=== PATIENT | female | born 1955 | race Caucasian/White ===

== ENCOUNTER 2016-04-22 16:09 | Observation (INO) | payer MEDICARE, OTHER ==
--- NOTE | 2016-04-22 16:20 | ED ---
General Adult HPI - General Chief complaint: Chest Pain Stated complaint: Chest Pain Time Seen by Provider: 04/22/16 16:11 Source: EMS, RN notes reviewed, old records reviewed Mode of arrival: EMS Limitations: no limitations - History of Present Illness Initial comments: This is a 52-year-old female here for evaluation of chest pain. Anterior chest pain feels like something sitting her chest and her left arm. Patient states she is concerned that she isn't a diabetic. This have history of psychiatric disease as well as angina, cholesterol, patient states that this chest pain is been dealing with on and off worse since last night. She has a prior cardiac evaluation which she states was normal but was on. All was done greater than 10 years ago. Patient has no recent cough congestion, no recent fever, no recent travel history. - Related Data Home Medications Medication Instructions Recorded Confirmed DULoxetine HCL [Cymbalta] 120 mg PO DAILY 08/24/13 04/22/16 ALPRAZolam [Xanax] 0.5 mg PO TID 04/22/16 04/22/16 Albuterol Inhaler [Ventolin Hfa 2 puff INHALATION RT-Q4H PRN 04/22/16 04/22/16 Inhaler] Calcium Carbonate [Calcium] 600 mg PO DAILY 04/22/16 04/22/16 Ferrous Sulfate [Feosol] 325 mg PO BID 04/22/16 04/22/16 Fish Oil/Dha/Epa [Fish Oil 1,200 1 cap PO BID 04/22/16 04/22/16 mg Fish Oil] Levothyroxine Sodium [Synthroid] 137 mcg PO QAM 04/22/16 04/22/16 Multivitamins, Thera [Multivitamin] 1 tab PO DAILY 04/22/16 04/22/16 Prazosin [Minipress] 1 mg PO HS 04/22/16 04/22/16 Vitamin B Complex 1 cap PO DAILY 04/22/16 04/22/16 busPIRone HCl [Buspar] 20 mg PO TID 04/22/16 04/22/16 metFORMIN HCL [Glucophage] 500 mg PO BID 04/22/16 04/22/16 Previous Rx's Medication Instructions Recorded Aspirin 81 mg PO DAILY 30 Days 12/29/13 Pravastatin Sodium [Pravachol] 80 mg PO HS 30 Days 11/05/14 Allergies Allergy/AdvReac Type Severity Reaction Status Date / Time sulfamethoxazole Allergy Unknown Rash/Hives, Verified 04/22/16 16:11 [From Bactrim] SOB trimethoprim [From Bactrim] Allergy Unknown Rash/Hives, Verified 04/22/16 16:11 SOB Review of Systems ROS Statement: Those systems with pertinent positive or pertinent negative responses have been documented in the HPI. ROS Other: All systems not noted in ROS Statement are negative. Past Medical History Past Medical History: Asthma, Chest Pain / Angina, Diabetes Mellitus, GERD/ Reflux, Hyperlipidemia, Sleep Apnea/CPAP/BIPAP, Thyroid Disorder Additional Past Medical History / Comment(s): anemia, chest pain "from anxiety" , sometimes low BP, occ palpitations, diverticulosis, kidney stone History of Any Multi-Drug Resistant Organisms: None Reported Past Surgical History: Section, Heart Catheterization, Hernia Repair, Tonsillectomy Past Anesthesia/Blood Transfusion Reactions: Family History of Problems w/ Anesthesia, Motion Sickness Additional Past Anesthesia/Blood Transfusion Reaction / Comment(s): sister had diff breathing from anesthesia Past Psychological History: Anxiety, Bipolar, Depression Smoking Status: Never smoker Past Alcohol Use History: None Reported Past Drug Use History: None Reported - Past Family History Mother Additional Family Medical History / Comment(s): renal disease. Father Additional Family Medical History / Comment(s): [place] and stroke Brother(s) Family Medical History: Cancer Sister(s) Family Medical History: Cancer General Exam Limitations: no limitations General appearance: alert, in no apparent distress Head exam: Present: atraumatic, normocephalic, normal inspection Eye exam: Present: normal appearance, PERRL, EOMI. Absent: scleral icterus, conjunctival injection, periorbital swelling ENT exam: Present: normal exam, mucous membranes moist Neck exam: Present: normal inspection. Absent: tenderness, meningismus, lymphadenopathy Respiratory exam: Present: normal lung sounds bilaterally. Absent: respiratory distress, wheezes, rales, rhonchi, stridor Cardiovascular Exam: Present: regular rate, normal rhythm, normal heart sounds. Absent: systolic murmur, diastolic murmur, rubs, gallop, clicks GI/Abdominal exam: Present: soft, normal bowel sounds. Absent: distended, tenderness, guarding, rebound, rigid Extremities exam: Present: normal inspection, full ROM, normal capillary refill. Absent: tenderness, pedal edema, joint swelling, calf tenderness Back exam: Present: normal inspection Neurological exam: Present: alert, oriented X3, CN II-XII intact Psychiatric exam: Present: normal affect, normal mood Skin exam: Present: warm, dry, intact, normal color. Absent: rash Course Vital Signs 04/22/16 04/22/16 04/22/16 16:11 16:23 17:15 Temperature 99 F Pulse Rate 82 73 Pulse Rate [ 88 Right Radial] Respiratory 16 18 Rate Blood Pressure 115/58 95/65 O2 Sat by Pulse 97 2 L Oximetry - Reevaluation(s) Reevaluation #1: 04/22/16 17:32 Patient remains a chest pain right now EKG Findings - EKG Comments: EKG Findings:: EKG shows normal sinus a rate of 72, NC 162, QRS 72, QTC 438 Medical Decision Making - Medical Decision Making 60 [id number] chest pain. Patient has anterior chest pain sitting on chest , typical chest pain mild risk factors. Patient's initial EKG and troponin are negative will be admitted for cardiac observation and telemetry, serial troponins and anticoagulation - Lab Data Result diagrams: 04/22/16 16:21 04/22/16 16:21 Lab Results 04/22/16 04/22/16 04/22/16 Range/Units 16:21 16:21 16:21 WBC 9.2 (3.8-10.6) k/uL RBC 4.93 (3.80-5.40) m/uL Hgb 13.6 (11.4-16.0) gm/dL Hct 41.4 (34.0-46.0) % MCV 83.9 (80.0-100.0) fL MCH 27.5 (25.0-35.0) pg MCHC 32.8 (31.0-37.0) g/dL RDW 13.5 (11.5-15.5) % Plt Count 288 (150-450) k/uL Neutrophils % 63 % Lymphocytes % 26 % Monocytes % 7 % Eosinophils % 2 % Basophils % 1 % Neutrophils # 5.8 (1.3-7.7) k/uL Lymphocytes # 2.4 (1.0-4.8) k/uL Monocytes # 0.6 (0-1.0) k/uL Eosinophils # 0.1 (0-0.7) k/uL Basophils # 0.1 (0-0.2) k/uL PT (9.0-12.0) sec INR (<1.1) APTT (22.0-30.0) sec Sodium 143 (137-145) mmol/L Potassium 3.6 (3.5-5.1) mmol/L Chloride 108 H (98-107) mmol/L Carbon Dioxide 24 (22-30) mmol/L Anion Gap 11 mmol/L BUN 10 (7-17) mg/dL Creatinine 0.75 (0.52-1.04) mg/dL Est GFR (MDRD) Af Amer >60 (>60 ml/min/1.73 sqM) Est GFR (MDRD) Non-Af >60 (>60 ml/min/1.73 sqM) Glucose 98 (74-99) mg/dL Calcium 9.2 (8.4-10.2) mg/dL Magnesium 1.4 L (1.6-2.3) mg/dL Total Bilirubin 0.9 (0.2-1.3) mg/dL AST 32 (14-36) U/L ALT 32 (9-52) U/L Alkaline Phosphatase 38 (38-126) U/L Total Creatine Kinase 42 (30-135) U/L NT-Pro-B Natriuret Pep pg/mL Total Protein 6.7 (6.3-8.2) g/dL Albumin 3.9 (3.5-5.0) g/dL Lipase 78 (23-300) U/L 04/22/16 04/22/16 Range/Units 16:21 16:21 WBC (3.8-10.6) k/uL RBC (3.80-5.40) m/uL Hgb (11.4-16.0) gm/dL Hct (34.0-46.0) % MCV (80.0-100.0) fL MCH (25.0-35.0) pg MCHC (31.0-37.0) g/dL RDW (11.5-15.5) % Plt Count (150-450) k/uL Neutrophils % % Lymphocytes % % Monocytes % % Eosinophils % % Basophils % % Neutrophils # (1.3-7.7) k/uL Lymphocytes # (1.0-4.8) k/uL Monocytes # (0-1.0) k/uL Eosinophils # (0-0.7) k/uL Basophils # (0-0.2) k/uL PT 11.0 (9.0-12.0) sec INR 1.1 (<1.1) APTT 22.1 (22.0-30.0) sec Sodium (137-145) mmol/L Potassium (3.5-5.1) mmol/L Chloride (98-107) mmol/L Carbon Dioxide (22-30) mmol/L Anion Gap mmol/L BUN (7-17) mg/dL Creatinine (0.52-1.04) mg/dL Est GFR (MDRD) Af Amer (>60 ml/min/1.73 sqM) Est GFR (MDRD) Non-Af (>60 ml/min/1.73 sqM) Glucose (74-99) mg/dL Calcium (8.4-10.2) mg/dL Magnesium (1.6-2.3) mg/dL Total Bilirubin (0.2-1.3) mg/dL AST (14-36) U/L ALT (9-52) U/L Alkaline Phosphatase (38-126) U/L Total Creatine Kinase (30-135) U/L NT-Pro-B Natriuret Pep 55 pg/mL Total Protein (6.3-8.2) g/dL Albumin (3.5-5.0) g/dL Lipase (23-300) U/L - Radiology Data Radiology results: report reviewed (Chest x-ray negative for acute disease), image reviewed Critical Care Time Critical Care Time: Yes Total Critical Care Time: 31 Disposition Clinical Impression: Chest pain Disposition: ADMITTED IP TO THIS [facility] Condition: Undetermined Instructions: Chest Pain (ED) Referrals: Gracie Medrano DO [Primary Care Provider] - 1-2 days
[2016-04-22 16:46] LABS: Basophils # (A) 0.1 k/uL (0-0.2); Basophils % (A) 1 %; CH 27.7; CHCM 33.1; Eosinophils # (A) 0.1 k/uL (0-0.7); Eosinophils % (A) 2 %; HCT 41.4 % (34.0-46.0); HDW 2.65; HGB 13.6 gm/dL (11.4-16.0); Luc # (Auto) 0.18; Luc % (Auto) 2; Lymphocytes # (A) 2.4 k/uL (1.0-4.8); Lymphocytes % (A) 26 %; MCH 27.5 pg (25.0-35.0); MCHC 32.8 g/dL (31.0-37.0); MCV 83.9 fL (80.0-100.0); Mean Platelet Volume 9.2; Monocytes # (A) 0.6 k/uL (0-1.0); Monocytes % (A) 7 %; Neutrophils # (A) 5.8 k/uL (1.3-7.7); Neutrophils % (A) 63 %; RBC 4.93 m/uL (3.80-5.40); RDW 13.5 % (11.5-15.5); WBC 9.2 k/uL (3.8-10.6); WBC (Perox) 9.05
[2016-04-22 16:48] LABS: ALT 32 U/L (9-52); AST 32 U/L (14-36); Alkaline Phosphatase 38 U/L (38-126); Anion Gap 11 mmol/L; Blood Urea Nitrogen 10 mg/dL (7-17); Calcium 9.2 mg/dL (8.4-10.2); Carbon Dioxide 24 mmol/L (22-30); Chloride 108 mmol/L (98-107); Glucose 98 mg/dL (74-99); Magnesium 1.4 mg/dL (1.6-2.3); Non-African American GFR(MDRD) >60 (>60 ml/min/1.73 sqM); Potassium 3.6 mmol/L (3.5-5.1); Sodium 143 mmol/L (137-145); Total Bilirubin 0.9 mg/dL (0.2-1.3); Total Protein 6.7 g/dL (6.3-8.2)
--- NOTE | 2016-04-22 16:50 | XR ---
EXAMINATION TYPE: XR chest 2V DATE OF EXAM: 04/22/2016 4:41 PM COMPARISON: 09/04/2013 INDICATION: Chest pain TECHNIQUE: Single frontal view of the chest is obtained. FINDINGS: The heart size is normal. The pulmonary vasculature is normal. The lungs are clear. IMPRESSION: 1. No acute pulmonary process.
[2016-04-22 16:52] LABS: INR 1.1 (<1.1); Partial Thromboplastin Time 22.1 sec (22.0-30.0)
[2016-04-22 17:13] LABS: Creatine Kinase 42 U/L (30-135)
[2016-04-22 17:27] LABS: Creatine Kinase MB 0.3 ng/mL (0.0-2.4); Troponin I <0.012 ng/mL (0.000-0.034)
[2016-04-22] MEDS ORDERED: MORPHINE SULFATE 4 MG/ML SYRINGE IVP STA (17:28)
[2016-04-22] MEDS ORDERED: MORPHINE SULFATE 4 MG/ML SYRINGE IV PRN (17:29)
[2016-04-22] MEDS ORDERED: HEPARIN SODIUM,PORCINE 5,000 UNIT/ML 1 ML VIAL IV ONE (17:29)
[2016-04-22] MEDS ORDERED: ASPIRIN 81 MG CHEW PO STA (17:29)
[2016-04-22] MEDS ORDERED: HEPARIN SODIUM,PORCINE 5,000 UNIT/ML 1 ML VIAL IV PRN (17:29)
[2016-04-22] MEDS ORDERED: NITROGLYCERIN SL TABS 0.4 MG TAB SUBLINGUAL PRN (17:29)
[2016-04-22] MEDS ORDERED: HEPARIN SODIUM,PORCINE/D5W PMX 25,000 UNIT in DEXTROSE/WATER 1 500ML.BAG IV SCH (17:30)
[2016-04-22] MEDS: SODIUM CHLORIDE 0.9% 1,000 ML IV STA ×2 (17:57→19:34)
[2016-04-22 18:31] LABS: Glucose,Whole Blood 94 mg/dL (75-99)
[2016-04-22] MEDS: SODIUM CHLORIDE 0.9% 1,000 ML IV SCH (19:35)
[2016-04-22 19:50] VITALS: BMI 60.2
[2016-04-22] MEDS ORDERED: ALBUTEROL NEBULIZED 2.5 MG/3 ML INHALATION PRN (19:52)
[2016-04-22] MEDS ORDERED: metFORMIN 500 MG TAB PO STA (19:55)
[2016-04-22] MEDS ORDERED: POTASSIUM CHLORIDE ER 20 MEQ TAB.ER PO STA (19:57)
[2016-04-22] MEDS: MAGNESIUM SULFATE-D5W PMX 1 GM in DEXTROSE/WATER 1 100ML.BAG IVPB SCH ×3 (20:28→23:45)
[2016-04-22] MEDS: ALPRAZolam 0.5 MG TAB PO SCH (20:33)
[2016-04-22] MEDS: FERROUS SULFATE 325 MG TAB PO SCH (20:34)
[2016-04-22] MEDS: busPIRone HCl 10 MG TAB PO SCH (20:34)
[2016-04-22] MEDS ORDERED: PRAZOSIN 1 MG CAP PO SCH (21:00)
[2016-04-22] MEDS ORDERED: PRAVASTATIN SODIUM 80 MG TAB PO SCH (21:00)
[2016-04-22 21:16] LABS: Glucose,Whole Blood 119 mg/dL (75-99)
[2016-04-22] MEDS: INSULIN LISPRO (humaLOG) 300 UNIT/3 ML VIAL SQ SCH (22:11)
[2016-04-22 23:53] LABS: Creatine Kinase 39 U/L (30-135)
[2016-04-23 00:03] LABS: Creatine Kinase MB 0.3 ng/mL (0.0-2.4); Troponin I <0.012 ng/mL (0.000-0.034)
[2016-04-23 00:04] LABS: Hemoglobin A1C 6.3 % (4.2-6.1)
[2016-04-23 05:43] LABS: Mean Platelet Volume 8.6
[2016-04-23 06:17] LABS: Creatine Kinase 41 U/L (30-135)
[2016-04-23] MEDS ORDERED: LEVOTHYROXINE 137 MCG TAB PO SCH (06:30)
[2016-04-23 06:31] LABS: Creatine Kinase MB 0.4 ng/mL (0.0-2.4); Troponin I <0.012 ng/mL (0.000-0.034)
[2016-04-23 06:57] LABS: Glucose,Whole Blood 135 mg/dL (75-99)
[2016-04-23 07:11] LABS: Anion Gap 11 mmol/L; Blood Urea Nitrogen 12 mg/dL (7-17); Calcium 9.3 mg/dL (8.4-10.2); Carbon Dioxide 24 mmol/L (22-30); Chloride 108 mmol/L (98-107); Cholesterol 115 mg/dL (<200); Glucose 129 mg/dL (74-99); HDL Cholesterol 35 mg/dL (40-60); Magnesium 2.2 mg/dL (1.6-2.3); Non-African American GFR(MDRD) >60 (>60 ml/min/1.73 sqM); Potassium 3.9 mmol/L (3.5-5.1); Sodium 143 mmol/L (137-145); Triglycerides 245 mg/dL (<150)
[2016-04-23] MEDS ORDERED: DOBUTamine DRIP for NUC MED 500 MG in DEXTROSE/WATER 1 250ML.BAG IV ONE (08:49)
[2016-04-23] MEDS ORDERED: ASPIRIN 325 MG TAB PO SCH (09:00)
--- NOTE | 2016-04-23 09:11 | CONS ---
DATE OF CONSULTATION: Mrs. Welch is a 60-year-old female with no history of diabetes and history of hyperlipidemia, history of anxiety and depression who presented with symptoms of not feeling well, as well as symptoms of chest discomfort. She has been having this discomfort for a few weeks, the discomfort is worsened on mental stress. Yesterday, she was at doctor's office when she felt quite dizzy and presyncopal. She has been having progressive symptoms of dyspnea, dizziness and palpitations. She is not active physically. She has some peripheral edema. She has no clear PND or orthopnea. She has no prior history of cardiac disease. She had underwent cardiac work-up a few years back that was unremarkable. Her coronary risk factors are remarkable for diabetes and hyperlipidemia. She is a nonsmoker, nonhypertensive. Her medications include metformin 500 mg twice a day, pravastatin 80 mg daily, vitamin D, calcium, aspirin, Ventolin, Minipress 1 mg daily, Xanax, BuSpar, Cymbalta. REVIEW OF SYSTEMS: RESPIRATORY SYSTEM: She has dyspnea on exertion, prior history of asthma. GI SYSTEM: She had recent bright red blood per rectum, most likely hemorrhoids. No nausea or vomiting. SYSTEM: No dysuria, hematuria. NERVOUS SYSTEM: No stroke or seizure. She has a history of depression. PHYSICAL EXAMINATION: She is a 60-year-old female, obese, alert, oriented, in no apparent distress. Blood pressure running in the low 100 with a heart rate in the 60s. HEAD: Normocephalic. EYES: Sclerae nonicteric. NECK: Good upstroke. No bruit. No jugular venous distention. LUNGS: Clear to auscultation. HEART: Regular rate and rhythm. S1, S2, no S3, no rub or gallop appreciated. ABDOMEN: Soft, nontender, obese. Positive bowel sounds. No organomegaly. EXTREMITIES: No edema. Intact distal pulses. Lab data revealed cholesterol 115, LDL of 31. Troponin less than 0.012. BUN and creatinine 12 and 0.91, magnesium of 2.2 today, was 1.4 yesterday. Hemoglobin is 13.6. EKG reveals sinus mechanism, normal axis and intervals with minor nonspecific ST-T wave changes. Chest x-ray revealed no acute infiltrate. IMPRESSION: 1. Chest discomfort, atypical for ischemic heart disease, probably noncardiac in etiology. 2. History of hyperlipidemia. 3. Diabetes mellitus. 4. Symptoms of dizziness could be related to the hypotension from the Minipress. 5. History of depression. RECOMMENDATION: I will stop her Minipress. I will stop her heparin, proceed with a stress dobutamine echocardiogram and a transthoracic echo and if there is no evidence of inducible ischemia, then no further cardiac work-up will be needed. Thank you for this consult.
[2016-04-23] MEDS: INSULIN LISPRO (humaLOG) 300 UNIT/3 ML VIAL SQ SCH ×2 (09:24→12:36)
[2016-04-23] MEDS: busPIRone HCl 10 MG TAB PO SCH (11:14)
[2016-04-23] MEDS: FERROUS SULFATE 325 MG TAB PO SCH (11:15)
[2016-04-23] MEDS: ALPRAZolam 0.5 MG TAB PO SCH (11:15)
[2016-04-23 12:09] VITALS: RESP 16
--- NOTE | 2016-04-23 12:20 | ECHOS ---
DATE OF SERVICE: 04/23/2016 AGE: 60Y SEX: F HT: 60 WT: 308 lbs. Protocol Saman: Others: Dobutamine Stress Echo Stage: Dur. of Exercise: *Heart Rate Blood Pressure *Rest: 70 Rest: 119/58 * *Max. Achieved: 138 Maximum BP: 148/49 85% PMHR: 138 100% PMHR: 162 *METS: INDICATIONS: Chest pain. MEDICATIONS: Patient was given dobutamine infusion according to the standard protocol. Peak heart rate of 138 was achieved. Maximum blood pressure of 148/49 mmHg was noted. Resting EKG shows normal sinus rhythm with normal NV interval and QRS duration and normal ST-T waves. No ST segment depression suggestive of ischemia is noted. Occasional PVCs are noted. The baseline echocardiographic images reveals normal left ventricular chamber size with normal left ventricular systolic function. At the peak dose of dobutamine infusion, normal increase in the wall thickness and contractility is noted. FINAL IMPRESSION: This dobutamine stress echocardiographic study is negative for stress-induced ischemia. EKG portion of the stress test is not suggestive of ischemia. Occasional PVCs are noted.
[2016-04-23 12:21] LABS: Glucose,Whole Blood 117 mg/dL (75-99)
--- NOTE | 2016-04-23 12:22 | ECHOF ---
Referral Reason:cp MEASUREMENTS -------- HEIGHT: 152.4 cm WEIGHT: 139.7 kg BP: 108/58 RVIDd: 3.3 cm (< 3.3) IVSd: 1.6 cm (0.6 - 1.1) LVIDd: 4.3 cm (3.9 - 5.3) LVPWd: 1.4 cm (0.6 - 1.1) IVSs: 1.7 cm LVIDs: 3.0 cm LVPWs: 1.9 cm LA Diam: 3.1 cm (2.7 - 3.8) LAESV Index (A-L): 16.91 ml/m Ao Diam: 3.1 cm (2.0 - 3.7) AV Cusp: 2.5 cm (1.5 - 2.6) MV E Edmond: 0.73 m/s MV DecT: 223 ms MV A Edmond: 0.65 m/s MV E/A Ratio: 1.12 RAP: 5.00 mmHg RVSP: 15.84 mmHg FINDINGS -------- Sinus rhythm. This was a technically adequate study. The left ventricular size is normal. There is moderate concentric left ventricular hypertrophy. Overall left ventricular systolic function is normal with, an EF between 60 - 65 %. The right ventricle is normal in size. Normal LA size by volume 22+/-6 ml/m2. The right atrium is normal in size. The aortic valve was not well visualized. Mild mitral annular calcification present. Trace tricuspid regurgitation present. Right ventricular systolic pressure is normal at < 35 mmHg. The pulmonic valve was not well visualized. The aortic root size is normal. Normal inferior vena cava with normal inspiratory collapse consistent with estimated right atrial pressure of 5 mmHg. There is no pericardial effusion. CONCLUSIONS -------- 1. Sinus rhythm. 2. Mild mitral annular calcification present. 3. Trace tricuspid regurgitation present. 4. Right ventricular systolic pressure is normal at < 35 mmHg. 5. The pulmonic valve was not well visualized. 6. The aortic root size is normal. 7. Normal inferior vena cava with normal inspiratory collapse consistent with estimated right atrial pressure of 5 mmHg. 8. There is no pericardial effusion. 9. This was a technically adequate study. 10. The left ventricular size is normal. 11. There is moderate concentric left ventricular hypertrophy. 12. Overall left ventricular systolic function is normal with, an EF between 60 - 65 %. 13. The right ventricle is normal in size. 14. Normal LA size by volume 22+/-6 ml/m2. 15. The right atrium is normal in size. 16. The aortic valve was not well visualized. [employer] ENGINEER: Alexa Hoskins RDCS
[2016-04-23 16:21] VITALS: BP 115/59; PULSE 72; TEMP 98.4
--- NOTE | 2016-04-23 16:28 | HP ---
H&P AND DISCHARGE SUMMARY DATE OF ADMISSION: Patient is a 60-year-old with significant psychiatric history; follows with [facility]. She came in with complaints of severe anxiety episode which led to her chest pressure-like sensation with pain radiating to the left arm. Patient although had reproducible chest pain, about 7/10 in severity, which is completely resolved at this point of time. Patient has multiple other symptoms, including cough, which did not have here, GI bleed history, which was not evidenced here, abdominal pain, completely resolved at this time, dizziness and a presyncopal episode, all of which are resolved at this point of time. Patient's orthostatics were negative. Patient denied any orthopnea or PND. Patient's chest pain is nonpleuritic in nature. Review of systems are positive and non-significant at this point of time. All the workup is negative. Patient underwent a stress test which was negative and patient probably has psychosomatic disorder. She may have musculoskeletal chest pain as well. Her symptoms are mostly related to her anxiety as well as psychosomatism. Review of systems, except for those mentioned above, is negative. Home medications include: 1. Levothyroxine. 2. Pravastatin. 3. Metformin. 4. Ferrous sulfate. 5. Calcium carbonate. 6. Albuterol. 7. Prazosin. 8. Alprazolam. 9. Buspirone. 10. Duloxetine. Past medical history is significant for: 1. Severe depression. 2. Anxiety disorder. 3. Asthma. 4. Morbid obesity. 5. Sleep apnea; uses CPAP machine at home. 6. Gastroesophageal reflux disease. 7. Diabetes mellitus. 8. Hyperlipidemia. 9. section in the past. 10. Cardiac catheterization. 11. Hernia repair. 12. Tonsillectomy. Family history is significant for myocardial infarction in 4 of her brothers who of myocardial infarction. Cancer in the family. PHYSICAL EXAMINATION: VITAL SIGNS: Temperature 98.5, pulse of 68, respiratory rate of 16. Blood pressure is 92/52. GENERAL: Morbidly obese female. Alert and oriented x3. HEENT: Pupils are round and equally reacting to light. EOMI. No scleral icterus. No conjunctival pallor. Normocephalic, atraumatic. No pharyngeal erythema. No thyromegaly. CARDIOVASCULAR: S1 and S2 present. No murmurs, rubs, or gallops. PULMONARY: Chest is clear to auscultation, no wheezing or crackles. ABDOMEN: Soft, nontender, nondistended, normoactive bowel sounds. No palpable organomegaly. MUSCULOSKELETAL: No joint swelling or deformity. EXTREMITIES: No cyanosis, clubbing, or pedal edema. NEUROLOGICAL: Gross neurological examination did not reveal any focal deficits. SKIN: No rashes. LABORATORY DATA: CBC, CMP within normal limits. EKG was reviewed. Troponins are essentially negative. LDL is 31. Magnesium was 1.4, which was supplemented. ASSESSMENT AND PLAN: 1. Chest pain, atypical in nature. Patient underwent stress test which was negative. Patient was ruled out acute coronary syndrome, unstable angina. 2. Hyperlipidemia. 3. Type 2 diabetes mellitus. 4. Morbid obesity. 5. Severe depression. 6. Anxiety disorder. 7. Psychosomatism. 8. Hypomagnesemia, which was supplemented. Most of her symptoms are mostly psychosomatic and anxiety-related. Patient follows with [facility] and patient was asked to follow up with [facility] and primary care physician. Patient will be discharged today. DISCHARGE DIET: Cardiac and ADA 1800-calorie diet. Patient was complaining of multiple other symptoms, including loss of appetite, not able to eat well, although patient did eat well here. Patient will follow up with Dr. Gracie Medrano, her primary care physician, in 3 to 7 days. Activity as tolerated. Cardiac diet.
[2016-04-23] MEDS: SODIUM CHLORIDE 0.9% 1,000 ML IV SCH ×2 (17:13→17:14)
== END 2016-04-23 21:20 | disposition home or self-care (01) ==
LOC: EC 16:09 → 3OBS 17:30
PROVIDERS: ADMIT Hospitalist; ATTEND Hospitalist
DX: R07.89 Other chest pain (principal); R42 Dizziness and giddiness; M79.602 Pain in left arm; E11.9 Type 2 diabetes mellitus without complications; E78.5 Hyperlipidemia, unspecified; E66.01 Morbid (severe) obesity due to excess calories; Z68.44 Body mass index [BMI] 60.0-69.9, adult; F32.9 Major depressive disorder, single episode, unspecified; F41.9 Anxiety disorder, unspecified; F45.9 Somatoform disorder, unspecified; E83.42 Hypomagnesemia; G47.30 Sleep apnea, unspecified; Z99.89 Dependence on other enabling machines and devices; E07.9 Disorder of thyroid, unspecified; D64.9 Anemia, unspecified; J45.909 Unspecified asthma, uncomplicated; Z79.899 Other long term (current) drug therapy; Z79.84 Long term (current) use of oral hypoglycemic drugs; Z88.2 Allergy status to sulfonamides; Z88.1 Allergy status to other antibiotic agents; Z82.3 Family history of stroke; Z82.49 Family history of ischemic heart disease and other diseases of the circulatory system
CPT/HCPCS: 99291; 96365 ×2; 96376 ×3; 96375 ×2; 93005 ×2; 96366 ×2; 96368; 36415; 94640; 93017; 93306; 83880; 80061; 80053; 80048; 83036; 82550 ×2; 82553 ×2; 83690; 83735 ×2; 84484 ×2; 85025; 85049; 85610; 85730 ×2; 71020; G0378 ×2; C8928; J1250; J2270; J1644 ×2; Q9957; J3475; 93350

== ENCOUNTER 2016-06-01 13:26 | Inpatient (IN) | payer MEDICARE, MEDICAID ==
[2016-06-01] MEDS ORDERED: MAG HYDROX/AL HYDROX/SIMETH 30 ML CUP PO PRN (13:30)
[2016-06-01] MEDS ORDERED: MAGNESIUM HYDROXIDE 2,400 MG/10 ML CUP PO PRN (13:30)
[2016-06-01] MEDS ORDERED: LORazepam 1 MG TAB PO PRN (13:33)
[2016-06-01] MEDS: busPIRone HCl 10 MG TAB PO SCH ×3 (18:15→21:42)
[2016-06-01 18:41] LABS: Glucose,Whole Blood 146 mg/dL (75-99)
[2016-06-01] MEDS ORDERED: traZODone HCL 100 MG TAB PO PRN (19:03)
[2016-06-01 20:07] LABS: Glucose,Whole Blood 147 mg/dL (75-99)
[2016-06-01] MEDS ORDERED: traZODone HCL 50 MG TAB PO SCH (21:00)
--- NOTE | 2016-06-01 21:12 | CT ---
EXAMINATION TYPE: CT brain wo con DATE OF EXAM: 06/01/2016 8:43 PM COMPARISON: 01/15/2013 HISTORY: 60-year-old female with dizziness and Headache for 5-6 days TECHNIQUE: Examination was done in axial plane without intravenous contrast. Coronal and sagittal r econstructions performed. CT DLP: 1036 mGycm Automated exposure control for dose reduction was used. FINDINGS: There is no evidence of acute intracranial hemorrhage, acute ischemic changes, mass, mass-effect, or extra-axial fluid collection. There is no effacement of cerebral sulci or basal subarachnoid cister ns. There is no hydrocephalus. There is no midline shift. Danielle-white matter distinction is preserv ed. Paranasal sinuses and mastoid air cells are well pneumatized. Orbits and globes are intact. IMPRESSION: No acute intracranial abnormality seen.
[2016-06-01] MEDS: NYSTATIN 100,000UNIT/GM CREAM 30 GM TUBE TOPICAL SCH (21:41)
[2016-06-01] MEDS: TRIAMCINOLONE 0.1% CREAM 80 GM TUBE TOPICAL SCH (21:41)
[2016-06-01] MEDS: PRAVASTATIN SODIUM 80 MG TAB PO SCH (21:41)
[2016-06-01] MEDS: INSULIN LISPRO (humaLOG) 300 UNIT/3 ML VIAL SQ SCH (21:52)
[2016-06-01] MEDS ORDERED: NYSTAT-TRIAMCIN 100,000-0.1 UNIT/GM-% CREAM 30 GM TUBE TOPICAL SCH (22:00)
[2016-06-02 06:39] LABS: Glucose,Whole Blood 136 mg/dL (75-99)
[2016-06-02] MEDS: INSULIN LISPRO (humaLOG) 300 UNIT/3 ML VIAL SQ SCH ×4 (08:41→21:25)
[2016-06-02] MEDS: LEVOTHYROXINE 137 MCG TAB PO SCH (08:41)
[2016-06-02] MEDS: ASPIRIN 81 MG CHEW PO SCH (08:42)
[2016-06-02] MEDS: DOCUSATE 100 MG CAP PO SCH (08:42)
[2016-06-02] MEDS: POLYETHYLENE GLYCOL 3350 17 GM POWD.PACK PO SCH (08:42)
[2016-06-02] MEDS: PANTOPRAZOLE 40 MG TABLET PO SCH (08:42)
[2016-06-02] MEDS: DULoxetine HCL 60 MG CAPSULE.DR PO SCH (08:42)
[2016-06-02] MEDS: busPIRone HCl 10 MG TAB PO SCH ×3 (08:42→21:23)
[2016-06-02] MEDS: NYSTATIN 100,000UNIT/GM CREAM 30 GM TUBE TOPICAL SCH ×2 (08:43→21:24)
[2016-06-02] MEDS: TRIAMCINOLONE 0.1% CREAM 80 GM TUBE TOPICAL SCH ×2 (08:43→21:24)
[2016-06-02 08:50] LABS: Basophils # (A) 0.1 k/uL (0-0.2); Basophils % (A) 1 %; CH 26.8; CHCM 31.6; Eosinophils # (A) 0.2 k/uL (0-0.7); Eosinophils % (A) 2 %; HCT 42.1 % (34.0-46.0); HDW 2.35; HGB 13.3 gm/dL (11.4-16.0); Luc # (Auto) 0.21; Luc % (Auto) 2; Lymphocytes # (A) 1.8 k/uL (1.0-4.8); Lymphocytes % (A) 20 %; MCHC 31.7 g/dL (31.0-37.0); MCV 85.3 fL (80.0-100.0); Mean Platelet Volume 7.5; Monocytes # (A) 0.6 k/uL (0-1.0); Monocytes % (A) 7 %; Neutrophils # (A) 5.9 k/uL (1.3-7.7); Neutrophils % (A) 67 %; RBC 4.93 m/uL (3.80-5.40); RDW 13.3 % (11.5-15.5); WBC 8.7 k/uL (3.8-10.6); WBC (Perox) 8.92
[2016-06-02 09:05] LABS: ALT 25 U/L (9-52); AST 27 U/L (14-36); Alkaline Phosphatase 50 U/L (38-126); Anion Gap 10 mmol/L; Blood Urea Nitrogen 15 mg/dL (7-17); Calcium 9.3 mg/dL (8.4-10.2); Carbon Dioxide 28 mmol/L (22-30); Chloride 103 mmol/L (98-107); Glucose 148 mg/dL (74-99); Non-African American GFR(MDRD) >60 (>60 ml/min/1.73 sqM); Potassium 3.4 mmol/L (3.5-5.1); Sodium 141 mmol/L (137-145); Total Bilirubin 1.1 mg/dL (0.2-1.3); Total Protein 6.8 g/dL (6.3-8.2)
[2016-06-02] MEDS ORDERED: POTASSIUM CHLORIDE ER 20 MEQ TAB.ER PO STA (11:22)
[2016-06-02] MEDS: ONDANSETRON ODT 4 MG TAB PO PRN (11:48)
[2016-06-02 12:20] LABS: Glucose,Whole Blood 146 mg/dL (75-99)
[2016-06-02] MEDS: cloNIDine HCL 0.1 MG TAB PO PRN ×2 (12:48→18:15)
--- NOTE | 2016-06-02 12:59 | P.CONS ---
History of Present Illness - Reason for Consult Consult date: 06/02/16 Medical management - History of Present Illness This is a 60-year-old female who follows with Dr. Gracie Medrano. She has a past medical history of diabetes mellitus type 2, gastroesophageal reflux disease, hyperlipidemia, sleep apnea on CPAP, hypothyroidism, diverticulosis, kidney stone in the past, anxiety, bipolar. Patient was recently seen at [facility] as she stopped taking her psychiatric medications. Patient states that she was there because she had a fall. She denies any syncope or head injury. She denied any lightheadedness. Patient was sent from [facility] and was admitted directly to the mental health unit with diagnosis of anxiety, depression and borderline personality. Patient apparently was stating that people were watching her and she does state that during evaluation. Patient is complaining of not having any appetite because she did not eat while she was at [facility]. 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 She was seen by general surgeon Dr. Pitts and this was determined to be an old finding. As patient does not have any abdominal pain. Patient did start vomiting this morning. She does not have any epigastric or abdominal tenderness. She is able to relate that she lives with her son. She denies any suicidal or homicidal thoughts. Review of Systems All systems: negative Constitutional: Denies chills, Denies fever Eyes: denies blurred vision, denies pain Ears, nose, mouth and throat: Denies headache, Denies sore throat Cardiovascular: Denies chest pain, Denies shortness of breath Respiratory: Denies cough Gastrointestinal: Reports nausea, Reports vomiting, Denies abdominal pain, Denies diarrhea Genitourinary: Denies dysuria, Denies hematuria Musculoskeletal: Denies myalgias Integumentary: Denies pruritus, Denies rash Neurological: Denies numbness, Denies weakness Psychiatric: Reports anxiety, Reports depression, Reports paranoia Endocrine: Denies fatigue, Denies weight change Past Medical History Past Medical History: Asthma, Chest Pain / Angina, Diabetes Mellitus, GERD/ Reflux, Hyperlipidemia, Sleep Apnea/CPAP/BIPAP, Thyroid Disorder Additional Past Medical History / Comment(s): anemia, chest pain "from anxiety" , sometimes low BP, occ palpitations, diverticulosis, kidney stone History of Any Multi-Drug Resistant Organisms: None Reported Past Surgical History: Section, Heart Catheterization, Hernia Repair, Tonsillectomy Additional Past Surgical History / Comment(s): 2, umbilical hernia repair, open surgery for Kidney stones removed, bilateral cataract extraction and intraocular lens implants. Past Anesthesia/Blood Transfusion Reactions: Family History of Problems w/ Anesthesia, Motion Sickness Additional Past Anesthesia/Blood Transfusion Reaction / Comm: sister had diff breathing from anesthesia Past Psychological History: Anxiety, Bipolar, Depression Smoking Status: Never smoker Past Alcohol Use History: None Reported Past Drug Use History: None Reported - Past Family History Mother Additional Family Medical History / Comment(s): Mother at age 80 from renal failure. Father Additional Family Medical History / Comment(s): Father at age 67 with history of AK and stroke Brother(s) Family Medical History: Cancer Additional Family Medical History / Comment(s): She has total of 5 brothers and all had history of coronary artery disease and CABG, hypertension, hyperlipidemia, diabetes. Sister(s) Family Medical History: Cancer Additional Family Medical History / Comment(s): one sister of colon cancer , second sister had ovarian cancer Son(s) Additional Family Medical History / Comment(s): She has 2 sons with no major medical problems. Patient does not have any daughters. Medications and Allergies Home Medications Medication Instructions Recorded Confirmed Type DULoxetine HCL [Cymbalta] 120 mg PO DAILY 08/24/13 04/22/16 History ALPRAZolam [Xanax] 0.5 mg PO TID 04/22/16 04/22/16 History Albuterol Inhaler [Ventolin Hfa 2 puff INHALATION RT-Q4H PRN 04/22/16 04/22/16 History Inhaler] Calcium Carbonate [Calcium] 600 mg PO DAILY 04/22/16 04/22/16 History Ferrous Sulfate [Feosol] 325 mg PO BID 04/22/16 04/22/16 History Fish Oil/Dha/Epa [Fish Oil 1,200 1 cap PO BID 04/22/16 04/22/16 History mg Fish Oil] Levothyroxine Sodium [Synthroid] 137 mcg PO QAM 04/22/16 04/22/16 History Multivitamins, Thera [Multivitamin] 1 tab PO DAILY 04/22/16 04/22/16 History Prazosin [Minipress] 1 mg PO HS 04/22/16 04/22/16 History Vitamin B Complex 1 cap PO DAILY 04/22/16 04/22/16 History busPIRone HCl [Buspar] 20 mg PO TID 04/22/16 04/22/16 History metFORMIN HCL [Glucophage] 500 mg PO BID 04/22/16 04/22/16 History Allergies Allergy/AdvReac Type Severity Reaction Status Date / Time sulfamethoxazole Allergy Unknown Rash/Hives, Verified 04/22/16 16:11 [From Bactrim] SOB trimethoprim [From Bactrim] Allergy Unknown Rash/Hives, Verified 04/22/16 16:11 SOB Physical Exam Vitals: Vital Signs Temp Pulse Resp BP Pulse Ox 06/02/16 10:11 97.3 F L 69 20 164/71 06/02/16 06:57 98.4 F 77 16 163/78 06/01/16 19:56 89 179/84 06/01/16 19:10 98.6 F 101 H 20 181/81 96 Intake and Output 06/01/16 06/02/16 06/02/16 22:59 06:59 14:59 Other: Weight 136.9 kg Patient Weight 06/03/16 06:59 Weight 136.9 kg Gen: This is a morbidly obese 60-year-old female. She is found laying in bed in disheveled appearance. Voice is low and difficult to hear. HEENT: Head is atraumatic, normocephalic. Pupils equal, round. Sclerae is anicteric. NECK: Supple. No JVD. No lymphadenopathy. No thyromegaly. LUNGS: Clear to auscultation. No wheezes or rhonchi. No intercostal retractions. HEART: Regular rate and rhythm. No murmur. ABDOMEN: Soft. Bowel sounds are present. No masses. No tenderness. EXTREMITIES: No pedal edema. No calf tenderness. NEUROLOGICAL: Patient is awake, alert and oriented x3. Cranial nerves 2 through 12 are grossly intact. Results CBC & Chem 7: 06/02/16 08:39 06/02/16 08:39 Labs: Abnormal Lab Results - Last 24 Hours (Table) 06/01/16 06/01/16 06/02/16 Range/Units 18:40 19:46 06:17 Potassium (3.5-5.1) mmol/L Glucose (74-99) mg/dL POC Glucose (mg/dL) 146 H 147 H 136 H (75-99) mg/dL 06/02/16 Range/Units 08:39 Potassium 3.4 L (3.5-5.1) mmol/L Glucose 148 H (74-99) mg/dL POC Glucose (mg/dL) (75-99) mg/dL Assessment and Plan Plan: 1. Depression generalized, anxiety, paranoid thoughts. Patient admitted to the mental health unit. Continue current plan of care. 2. Diabetes mellitus type 2. Patient will be resumed on metformin 500 mg twice daily and Humalog scale before meals and at bedtime [place]. 3. Hypothyroidism. Continue Synthroid 137 g daily. 4. History of asthma, mild intermittent. Continue Ventolin inhaler as needed. 5. Hyperlipidemia. Continue Fish oil and pravastatin. 6. Emesis possible psychogenic nausea with possibility of withdrawal from narcotics or anti-anxiety medications. Zofran oral added. PPI on. 7. CPAP on BiPAP at home, stable. Impression and plan of care have been directed as dictated by the signing physician. Rakel Babcock nurse practitioner acting as scribe for signing physician.
[2016-06-02] MEDS: MECLIZINE 12.5 MG TAB PO PRN (13:22)
[2016-06-02] MEDS: MULTIVITAMINS, THERA 1 EACH TAB PO SCH (13:26)
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
[2016-06-02 14:24] LABS: Hemoglobin A1C 6.1 % (4.2-6.1)
[2016-06-02] MEDS ORDERED: PROMETHAZINE INJ 25 MG/ML 1 ML VIAL IM ONE (14:25)
[2016-06-02] MEDS: LORazepam 1 MG TAB PO SCH ×2 (17:12→21:22)
[2016-06-02 17:38] LABS: Glucose,Whole Blood 121 mg/dL (75-99)
[2016-06-02] MEDS: ALBUTEROL INHALER 60 PUFF/8 GM INHALER INHALATION PRN (18:42)
[2016-06-02 20:19] LABS: Glucose,Whole Blood 157 mg/dL (75-99)
[2016-06-02] MEDS: metFORMIN 500 MG TAB PO SCH (21:23)
[2016-06-02] MEDS: FERROUS SULFATE 325 MG TAB PO SCH (21:23)
[2016-06-02] MEDS: PRAVASTATIN SODIUM 80 MG TAB PO SCH (21:23)
[2016-06-03] MEDS: LEVOTHYROXINE 137 MCG TAB PO SCH (06:14)
[2016-06-03 06:54] LABS: Glucose,Whole Blood 147 mg/dL (75-99)
[2016-06-03] MEDS: INSULIN LISPRO (humaLOG) 300 UNIT/3 ML VIAL SQ SCH ×4 (08:15→20:56)
[2016-06-03] MEDS: FERROUS SULFATE 325 MG TAB PO SCH ×2 (09:58→20:54)
[2016-06-03] MEDS: ASPIRIN 81 MG CHEW PO SCH (09:58)
[2016-06-03] MEDS: busPIRone HCl 10 MG TAB PO SCH ×3 (09:58→20:54)
[2016-06-03] MEDS: LORazepam 0.5 MG TAB PO SCH ×4 (09:58→20:54)
[2016-06-03] MEDS: CALCIUM CARBONATE 500 MG CHEWABLE PO SCH (09:58)
[2016-06-03] MEDS: DULoxetine HCL 60 MG CAPSULE.DR PO SCH (09:58)
[2016-06-03] MEDS: metFORMIN 500 MG TAB PO SCH ×2 (09:58→20:54)
[2016-06-03] MEDS: PANTOPRAZOLE 40 MG TABLET PO SCH (09:58)
[2016-06-03] MEDS: POLYETHYLENE GLYCOL 3350 17 GM POWD.PACK PO SCH (09:59)
[2016-06-03] MEDS: DOCUSATE 100 MG CAP PO SCH (09:59)
[2016-06-03] MEDS: TRIAMCINOLONE 0.1% CREAM 80 GM TUBE TOPICAL SCH ×2 (10:01→20:56)
[2016-06-03] MEDS: NYSTATIN 100,000UNIT/GM CREAM 30 GM TUBE TOPICAL SCH ×2 (10:01→20:55)
--- NOTE | 2016-06-03 10:07 | P.PN ---
Progress Note - Text Interval history: The patient is found in her room. She states she feels weak and dizzy and is not able to walk to an interview room. She presented with feelings of depression she reported having paranoid and persecutory thoughts with hallucinations. She was seen over the weekend that evaluation was reviewed. She was continued on Cymbalta BuSpar and trazodone. This morning she states she still has unexplained fears that she is being watched or followed. She is endorsing no hallucinations at this time she states within the last day or 2 she has had some visual hallucinations. She did undergo a head CT without contrast which revealed no acute abnormality. The patient is well known to the service. She does struggle with symptoms of depression but do not seem to resolve. She is treated by a nurse practitioner with [facility] and was seen within the last 2 weeks. Mental status exam: The patient is a morbidly obese female she is lying in bed. Eye contact is appropriate she wears eyeglasses. She is dressed in hospital gowns and is covered with a sheet. Speech is spontaneous soft nonpressured. She reports a depressed mood she reports some feelings of paranoia that seemed to be intermittent. She is endorsing no current hallucinations but reports recent hallucinations. Insight and judgment impaired. She demonstrates a bland affect. She demonstrates no verbal or physical aggressiveness. He reports feeling safe in the hospital no acute suicidal ideation. She is reporting no homicidal ideation. Plan: We will need to review outpatient [facility] mental health records. We will consider addition of an antipsychotic if necessary. We will monitor for safety and encourage her participation in the milieu. She reports having diarrhea this morning we will prescribe Imodium as needed. She expresses a desire to not be on a benzodiazepine and she has very been placed on an Ativan taper.
[2016-06-03] MEDS: B COMPLEX-VIT C-VIT E-ZINC 1 EACH TAB PO SCH (12:12)
[2016-06-03] MEDS: MULTIVITAMINS, THERA 1 EACH TAB PO SCH (12:12)
[2016-06-03 12:59] LABS: Glucose,Whole Blood 113 mg/dL (75-99)
[2016-06-03] MEDS: LOPERAMIDE 2 MG CAP PO PRN ×2 (13:50→20:54)
[2016-06-03 17:18] LABS: Glucose,Whole Blood 124 mg/dL (75-99)
[2016-06-03 20:07] LABS: Glucose,Whole Blood 116 mg/dL (75-99)
[2016-06-03] MEDS: PRAVASTATIN SODIUM 80 MG TAB PO SCH (20:54)
[2016-06-03] MEDS: ALBUTEROL INHALER 60 PUFF/8 GM INHALER INHALATION PRN (21:26)
[2016-06-04] MEDS: LEVOTHYROXINE 137 MCG TAB PO SCH (06:47)
[2016-06-04 07:23] LABS: Glucose,Whole Blood 133 mg/dL (75-99)
[2016-06-04] MEDS: metFORMIN 500 MG TAB PO SCH ×2 (08:04→22:00)
[2016-06-04] MEDS: PANTOPRAZOLE 40 MG TABLET PO SCH (08:04)
[2016-06-04] MEDS: INSULIN LISPRO (humaLOG) 300 UNIT/3 ML VIAL SQ SCH ×4 (08:04→21:59)
[2016-06-04] MEDS ORDERED: LORazepam 0.5 MG TAB PO SCH (09:00)
[2016-06-04] MEDS: ONDANSETRON ODT 4 MG TAB PO PRN ×2 (10:01→19:38)
[2016-06-04] MEDS: CALCIUM CARBONATE 500 MG CHEWABLE PO SCH (10:33)
[2016-06-04] MEDS: ASPIRIN 81 MG CHEW PO SCH (10:33)
[2016-06-04] MEDS: busPIRone HCl 10 MG TAB PO SCH ×3 (10:33→22:00)
[2016-06-04] MEDS: DULoxetine HCL 60 MG CAPSULE.DR PO SCH (10:34)
[2016-06-04] MEDS: DOCUSATE 100 MG CAP PO SCH (10:34)
[2016-06-04] MEDS: FERROUS SULFATE 325 MG TAB PO SCH ×2 (10:34→22:00)
[2016-06-04] MEDS: TRIAMCINOLONE 0.1% CREAM 80 GM TUBE TOPICAL SCH ×2 (10:35→22:01)
[2016-06-04] MEDS: NYSTATIN 100,000UNIT/GM CREAM 30 GM TUBE TOPICAL SCH ×2 (10:36→22:01)
[2016-06-04] MEDS: POLYETHYLENE GLYCOL 3350 17 GM POWD.PACK PO SCH (10:37)
--- NOTE | 2016-06-04 11:21 | P.PN ---
Progress Note - Text Interval history: The patient is found in her room. She reports that her mood is depressed she said she reports being tearful. She continues to intermittently report feelings of paranoia. She initially describes paranoid thoughts that she had while she was using opiate-based medication while in the hospital but states even yesterday and today she had some suspicious thoughts. She reports calling family members and making them provide personal details so that she can be a she word they are who they say they are. Staff report no perception of psychosis in groups. She states that recently she met with her nurse practitioner in the outpatient setting and they discussed changing the Cymbalta to another antidepressant area I have placed a call with her prescribing nurse practitioner to collaborate on medication management. The patient has been attending groups however has been sitting quietly. Mental status exam: The patient is a morbidly obese female she is dressed in her own clothing eye contact is appropriate speech is fluent spontaneous nonpressured. She describes a depressed mood with some anxiety symptoms. Intermittently she describes having paranoid thinking. She is endorsing no current hallucinations. She demonstrates no verbal or physical aggressiveness. Insight and judgment limited. She is tearful during the session displaying a dysphoric affect. Plan: We will discontinue the as needed trazodone, I will reduce the Ativan to 0.5 mg twice daily as we are tapering off of that medication. We will consider augmenting the Cymbalta or changing the Cymbalta completely. It sounds as if there plan in the outpatient setting was to change the Cymbalta. She states that she has been on Abilify in the past without success. Her reported psychosis is likely due to her mood symptoms we will consider antipsychotic medication if needed. She is encouraged to continue participating in the milieu we will monitor her for safety.
[2016-06-04 12:49] LABS: Glucose,Whole Blood 108 mg/dL (75-99)
[2016-06-04] MEDS: B COMPLEX-VIT C-VIT E-ZINC 1 EACH TAB PO SCH (13:10)
[2016-06-04] MEDS: MULTIVITAMINS, THERA 1 EACH TAB PO SCH (13:10)
[2016-06-04 17:04] LABS: Glucose,Whole Blood 130 mg/dL (75-99)
[2016-06-04] MEDS: ALBUTEROL INHALER 60 PUFF/8 GM INHALER INHALATION PRN (18:00)
[2016-06-04 20:34] LABS: Glucose,Whole Blood 122 mg/dL (75-99)
[2016-06-04] MEDS: LORazepam 0.5 MG TAB PO SCH (22:00)
[2016-06-04] MEDS: PRAVASTATIN SODIUM 80 MG TAB PO SCH (22:00)
[2016-06-05] MEDS: LEVOTHYROXINE 137 MCG TAB PO SCH (05:53)
[2016-06-05 07:09] LABS: Glucose,Whole Blood 123 mg/dL (75-99)
[2016-06-05] MEDS: INSULIN LISPRO (humaLOG) 300 UNIT/3 ML VIAL SQ SCH ×4 (08:35→20:18)
[2016-06-05] MEDS: PANTOPRAZOLE 40 MG TABLET PO SCH (08:54)
[2016-06-05] MEDS: ASPIRIN 81 MG CHEW PO SCH (08:56)
[2016-06-05] MEDS: metFORMIN 500 MG TAB PO SCH ×2 (08:56→20:20)
[2016-06-05] MEDS: FERROUS SULFATE 325 MG TAB PO SCH ×2 (08:56→20:20)
[2016-06-05] MEDS: DOCUSATE 100 MG CAP PO SCH (08:56)
[2016-06-05] MEDS: busPIRone HCl 10 MG TAB PO SCH (08:56)
[2016-06-05] MEDS: DULoxetine HCL 60 MG CAPSULE.DR PO SCH (08:57)
[2016-06-05] MEDS: LORazepam 0.5 MG TAB PO SCH ×2 (08:57→20:20)
[2016-06-05] MEDS: CALCIUM CARBONATE 500 MG CHEWABLE PO SCH (08:57)
[2016-06-05] MEDS: TRIAMCINOLONE 0.1% CREAM 80 GM TUBE TOPICAL SCH ×2 (08:58→20:34)
[2016-06-05] MEDS ORDERED: LORazepam 0.5 MG TAB PO SCH (09:00)
[2016-06-05] MEDS: POLYETHYLENE GLYCOL 3350 17 GM POWD.PACK PO SCH (09:03)
[2016-06-05] MEDS: NYSTATIN 100,000UNIT/GM CREAM 30 GM TUBE TOPICAL SCH ×2 (09:03→20:34)
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
[2016-06-05 12:04] LABS: Glucose,Whole Blood 118 mg/dL (75-99)
[2016-06-05] MEDS: B COMPLEX-VIT C-VIT E-ZINC 1 EACH TAB PO SCH (12:59)
[2016-06-05] MEDS: MULTIVITAMINS, THERA 1 EACH TAB PO SCH (12:59)
[2016-06-05 17:02] LABS: Glucose,Whole Blood 133 mg/dL (75-99)
[2016-06-05] MEDS: busPIRone HCl 5 MG TAB PO SCH ×2 (17:03→21:39)
[2016-06-05 20:08] LABS: Glucose,Whole Blood 154 mg/dL (75-99)
[2016-06-05] MEDS: PRAVASTATIN SODIUM 80 MG TAB PO SCH (20:20)
[2016-06-05] MEDS: ONDANSETRON ODT 4 MG TAB PO PRN (23:37)
[2016-06-05] MEDS: MECLIZINE 12.5 MG TAB PO PRN (23:37)
[2016-06-06] MEDS: LEVOTHYROXINE 137 MCG TAB PO SCH (06:13)
[2016-06-06 06:20] LABS: Glucose,Whole Blood 127 mg/dL (75-99)
[2016-06-06] MEDS: INSULIN LISPRO (humaLOG) 300 UNIT/3 ML VIAL SQ SCH ×4 (07:41→19:58)
[2016-06-06] MEDS: PANTOPRAZOLE 40 MG TABLET PO SCH (09:03)
[2016-06-06] MEDS: DOCUSATE 100 MG CAP PO SCH (09:03)
[2016-06-06] MEDS: CALCIUM CARBONATE 500 MG CHEWABLE PO SCH (09:03)
[2016-06-06] MEDS: busPIRone HCl 5 MG TAB PO SCH ×3 (09:03→19:59)
[2016-06-06] MEDS: ASPIRIN 81 MG CHEW PO SCH (09:03)
[2016-06-06] MEDS: DULoxetine HCL 60 MG CAPSULE.DR PO SCH (09:03)
[2016-06-06] MEDS: LORazepam 0.5 MG TAB PO SCH (09:04)
[2016-06-06] MEDS: TRIAMCINOLONE 0.1% CREAM 80 GM TUBE TOPICAL SCH ×2 (09:04→21:16)
[2016-06-06] MEDS: POLYETHYLENE GLYCOL 3350 17 GM POWD.PACK PO SCH (09:04)
[2016-06-06] MEDS: metFORMIN 500 MG TAB PO SCH ×2 (09:04→19:59)
[2016-06-06] MEDS: SERTRALINE 25 MG TAB PO SCH (09:04)
[2016-06-06] MEDS: FERROUS SULFATE 325 MG TAB PO SCH ×2 (09:04→19:59)
[2016-06-06] MEDS: NYSTATIN 100,000UNIT/GM CREAM 30 GM TUBE TOPICAL SCH ×2 (09:05→21:16)
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
[2016-06-06 12:52] LABS: Glucose,Whole Blood 118 mg/dL (75-99)
[2016-06-06] MEDS: B COMPLEX-VIT C-VIT E-ZINC 1 EACH TAB PO SCH (12:53)
[2016-06-06] MEDS: MULTIVITAMINS, THERA 1 EACH TAB PO SCH (12:53)
[2016-06-06 16:53] LABS: Glucose,Whole Blood 130 mg/dL (75-99)
[2016-06-06 19:54] LABS: Glucose,Whole Blood 142 mg/dL (75-99)
[2016-06-06] MEDS: PRAVASTATIN SODIUM 80 MG TAB PO SCH (19:59)
[2016-06-06] MEDS: MELATONIN 1 MG TAB PO PRN (22:52)
[2016-06-07] MEDS: LEVOTHYROXINE 137 MCG TAB PO SCH (05:55)
[2016-06-07 06:12] LABS: Glucose,Whole Blood 129 mg/dL (75-99)
[2016-06-07] MEDS: INSULIN LISPRO (humaLOG) 300 UNIT/3 ML VIAL SQ SCH ×4 (08:48→20:11)
[2016-06-07] MEDS: busPIRone HCl 5 MG TAB PO SCH ×3 (08:49→20:54)
[2016-06-07] MEDS: PANTOPRAZOLE 40 MG TABLET PO SCH (08:49)
[2016-06-07] MEDS: ASPIRIN 81 MG CHEW PO SCH (08:49)
[2016-06-07] MEDS: DOCUSATE 100 MG CAP PO SCH (08:50)
[2016-06-07] MEDS: FERROUS SULFATE 325 MG TAB PO SCH ×2 (08:50→20:54)
[2016-06-07] MEDS: DULoxetine HCL 60 MG CAPSULE.DR PO SCH (08:50)
[2016-06-07] MEDS: metFORMIN 500 MG TAB PO SCH ×2 (08:50→20:54)
[2016-06-07] MEDS: CALCIUM CARBONATE 500 MG CHEWABLE PO SCH (08:50)
[2016-06-07] MEDS: POLYETHYLENE GLYCOL 3350 17 GM POWD.PACK PO SCH (08:51)
[2016-06-07] MEDS: SERTRALINE 25 MG TAB PO SCH (08:51)
--- NOTE | 2016-06-07 09:38 | P.PN ---
Progress Note - Text Interval history: The patient is found in the hallway she follows me to an interview room. She continues to report a severely depressed mood and frequent tearfulness. She states "something is wrong I know it is". She continues to feel as though she cannot function. She also describes a feeling of being "numb ". She describes fearfulness for her son safety although there is no reason to be fearful. She asks several questions regarding her psychotropic medications and those were addressed. She selectively attends group. She is observed interacting with peers and often asks for assistance from them. Mental status exam: The patient is a morbidly obese female she is mobile with a wheelchair she is dressed in her own clothing, a house stress. Eye contact is appropriate she is tearful she displays a dysphoric affect. She reports hopelessness thinking and fearfulness which appears to be mostly anxiety related. She is reporting no homicidal ideation there is no evidence of overt psychosis. She does not appear hypomanic or manic. She is circumstantial in her thought process but there is no evidence of tangential thinking loose associations or flight of ideas. Insight and judgment limited. No verbal or physical aggressiveness is demonstrated. She remains oriented to person place and date. Plan: Starting tomorrow we will reduce the Cymbalta to 30 mg daily increase Zoloft to 50 mg daily continue BuSpar as written. We plan to titrate the Zoloft further. We discussed that she could be experiencing some discontinuation side effects from Cymbalta. Vital signs are reviewed. She is encouraged to utilize more objective thinking. She clearly has significant cluster B traits. She requires continued hospitalization. We will continue to monitor her for safety and she is encouraged to participate in the [facility].
[2016-06-07] MEDS: NYSTATIN 100,000UNIT/GM CREAM 30 GM TUBE TOPICAL SCH ×2 (10:27→20:55)
[2016-06-07] MEDS: TRIAMCINOLONE 0.1% CREAM 80 GM TUBE TOPICAL SCH ×2 (10:27→20:54)
[2016-06-07] MEDS: ALBUTEROL INHALER 60 PUFF/8 GM INHALER INHALATION PRN ×3 (12:25→21:19)
[2016-06-07] MEDS: B COMPLEX-VIT C-VIT E-ZINC 1 EACH TAB PO SCH (12:27)
[2016-06-07] MEDS: MULTIVITAMINS, THERA 1 EACH TAB PO SCH (12:27)
[2016-06-07 12:28] LABS: Glucose,Whole Blood 104 mg/dL (75-99)
[2016-06-07 17:09] LABS: Glucose,Whole Blood 117 mg/dL (75-99)
[2016-06-07 19:59] LABS: Glucose,Whole Blood 146 mg/dL (75-99)
[2016-06-07] MEDS: PRAVASTATIN SODIUM 80 MG TAB PO SCH (20:54)
[2016-06-07] MEDS: MELATONIN 1 MG TAB PO PRN (22:17)
[2016-06-08] MEDS: LEVOTHYROXINE 137 MCG TAB PO SCH (05:46)
[2016-06-08] MEDS: ACETAMINOPHEN TAB 325 MG TAB PO PRN (06:10)
[2016-06-08 06:15] LABS: Glucose,Whole Blood 131 mg/dL (75-99)
[2016-06-08] MEDS: INSULIN LISPRO (humaLOG) 300 UNIT/3 ML VIAL SQ SCH ×4 (08:30→21:02)
[2016-06-08] MEDS: CALCIUM CARBONATE 500 MG CHEWABLE PO SCH (09:14)
[2016-06-08] MEDS: FERROUS SULFATE 325 MG TAB PO SCH ×2 (09:14→20:59)
[2016-06-08] MEDS: metFORMIN 500 MG TAB PO SCH ×2 (09:14→20:59)
[2016-06-08] MEDS: PANTOPRAZOLE 40 MG TABLET PO SCH (09:14)
[2016-06-08] MEDS: SERTRALINE 50 MG TAB PO SCH (09:15)
[2016-06-08] MEDS: DULoxetine HCL 30 MG CAPSULE.DR PO SCH (09:15)
[2016-06-08] MEDS: ASPIRIN 81 MG CHEW PO SCH (09:15)
[2016-06-08] MEDS: DOCUSATE 100 MG CAP PO SCH (09:15)
[2016-06-08] MEDS: busPIRone HCl 5 MG TAB PO SCH ×3 (09:15→21:00)
[2016-06-08] MEDS: TRIAMCINOLONE 0.1% CREAM 80 GM TUBE TOPICAL SCH ×2 (09:19→21:30)
[2016-06-08] MEDS: NYSTATIN 100,000UNIT/GM CREAM 30 GM TUBE TOPICAL SCH ×2 (09:19→21:30)
[2016-06-08] MEDS: POLYETHYLENE GLYCOL 3350 17 GM POWD.PACK PO SCH (09:20)
--- NOTE | 2016-06-08 11:55 | P.PN ---
Progress Note - Text Interval history: Patient seen in cross coverage today for Dr. Blackwood. She is about to have a family meeting with her 2 sons. She complains of feeling confused and anxious. She relates she feels that something bad is going to happen to her. It is noted that her Cymbalta has been tapered down and she has been started on Zoloft. Mental status exam: She is alert, seated in a wheelchair. She is cooperative with the interview. She is tearful. She describes her mood is "crazy." She denies any thoughts of harm to self or others. She relays that she feels that something bad is going to happen to her. She is oriented to place and date. She does not show any significant agitation. Plan: We'll maintain current psychotropic medications and monitor for any adverse side effects. We'll continue to cover this patient for Dr. Woo. We talked about relaxation breathing. She is about to have a family meeting with her 2 sons with social work staff.
[2016-06-08 12:22] LABS: Glucose,Whole Blood 110 mg/dL (75-99)
[2016-06-08] MEDS: B COMPLEX-VIT C-VIT E-ZINC 1 EACH TAB PO SCH (12:41)
[2016-06-08] MEDS: MULTIVITAMINS, THERA 1 EACH TAB PO SCH (12:41)
[2016-06-08] MEDS: ALBUTEROL INHALER 60 PUFF/8 GM INHALER INHALATION PRN (15:16)
[2016-06-08 17:55] LABS: Glucose,Whole Blood 112 mg/dL (75-99)
[2016-06-08 20:11] LABS: Glucose,Whole Blood 128 mg/dL (75-99)
[2016-06-08] MEDS: PRAVASTATIN SODIUM 80 MG TAB PO SCH (21:00)
[2016-06-08] MEDS: MELATONIN 5 MG TABLET PO PRN (23:52)
[2016-06-08] MEDS: MELATONIN 3 MG TABLET PO PRN (23:52)
[2016-06-09] MEDS: ACETAMINOPHEN TAB 325 MG TAB PO PRN ×2 (00:40→14:37)
[2016-06-09] MEDS: LEVOTHYROXINE 137 MCG TAB PO SCH (06:14)
[2016-06-09 06:16] LABS: Glucose,Whole Blood 130 mg/dL (75-99)
[2016-06-09] MEDS: ASPIRIN 81 MG CHEW PO SCH (08:38)
[2016-06-09] MEDS: busPIRone HCl 5 MG TAB PO SCH ×3 (08:38→20:20)
[2016-06-09] MEDS: FERROUS SULFATE 325 MG TAB PO SCH ×2 (08:38→20:20)
[2016-06-09] MEDS: SERTRALINE 50 MG TAB PO SCH (08:38)
[2016-06-09] MEDS: PANTOPRAZOLE 40 MG TABLET PO SCH (08:38)
[2016-06-09] MEDS: metFORMIN 500 MG TAB PO SCH ×2 (08:38→21:02)
[2016-06-09] MEDS: DULoxetine HCL 30 MG CAPSULE.DR PO SCH (08:38)
[2016-06-09] MEDS: CALCIUM CARBONATE 500 MG CHEWABLE PO SCH (08:38)
[2016-06-09] MEDS: DOCUSATE 100 MG CAP PO SCH (08:41)
[2016-06-09] MEDS: INSULIN LISPRO (humaLOG) 300 UNIT/3 ML VIAL SQ SCH ×4 (08:41→20:18)
[2016-06-09] MEDS: NYSTATIN 100,000UNIT/GM CREAM 30 GM TUBE TOPICAL SCH (08:42)
[2016-06-09] MEDS: TRIAMCINOLONE 0.1% CREAM 80 GM TUBE TOPICAL SCH (08:42)
[2016-06-09] MEDS: POLYETHYLENE GLYCOL 3350 17 GM POWD.PACK PO SCH (08:42)
[2016-06-09] MEDS: ALBUTEROL INHALER 60 PUFF/8 GM INHALER INHALATION PRN ×3 (09:05→16:58)
[2016-06-09] MEDS: MULTIVITAMINS, THERA 1 EACH TAB PO SCH (12:13)
[2016-06-09] MEDS: B COMPLEX-VIT C-VIT E-ZINC 1 EACH TAB PO SCH (12:13)
[2016-06-09 12:14] LABS: Glucose,Whole Blood 98 mg/dL (75-99)
--- NOTE | 2016-06-09 16:56 | P.PN ---
Progress Note - Text Interval history: Patient seen in cross coverage today for Dr. Blackwood. She reports that she feels numb. She describes anxiety, racing thoughts, depression. She describes the multiple recent medication changes. She did have meeting with her sons yesterday which seemed to go well. She is eating enough. She seems to relay sleep was difficult last night. Mental status exam: She is alert and cooperative with the interview. She is seen in the interview room, seated in a wheelchair. She describes her mood is depressed. She denies any thoughts of harm to self or others. No agitation noted.. She does relate that she is scared of dying and relays that she sees her self in a casket with her sons looking over her. Plan: Patient will be maintained on current psychotropic medication regimen. We discussed adjustment period to medication changes. Dr. Blackwood or colleague to resume care this patient starting tomorrow. Continue to monitor her mood and level of anxiety.
[2016-06-09 17:31] LABS: Glucose,Whole Blood 115 mg/dL (75-99)
[2016-06-09 20:16] LABS: Glucose,Whole Blood 122 mg/dL (75-99)
[2016-06-09] MEDS: PRAVASTATIN SODIUM 80 MG TAB PO SCH (20:20)
[2016-06-09] MEDS: MELATONIN 5 MG TABLET PO PRN (21:05)
[2016-06-09] MEDS: MELATONIN 3 MG TABLET PO PRN (21:05)
[2016-06-10] MEDS: ACETAMINOPHEN TAB 325 MG TAB PO PRN (01:15)
[2016-06-10] MEDS: NYSTATIN 100,000UNIT/GM CREAM 30 GM TUBE TOPICAL SCH ×3 (02:29→21:11)
[2016-06-10] MEDS: TRIAMCINOLONE 0.1% CREAM 80 GM TUBE TOPICAL SCH ×3 (02:30→21:11)
[2016-06-10 06:22] LABS: Glucose,Whole Blood 128 mg/dL (75-99)
[2016-06-10] MEDS: LEVOTHYROXINE 137 MCG TAB PO SCH (07:30)
[2016-06-10] MEDS: INSULIN LISPRO (humaLOG) 300 UNIT/3 ML VIAL SQ SCH ×4 (08:52→20:18)
[2016-06-10] MEDS: PANTOPRAZOLE 40 MG TABLET PO SCH (09:16)
[2016-06-10] MEDS: DULoxetine HCL 30 MG CAPSULE.DR PO SCH (09:16)
[2016-06-10] MEDS: DOCUSATE 100 MG CAP PO SCH (09:16)
[2016-06-10] MEDS: FERROUS SULFATE 325 MG TAB PO SCH ×2 (09:16→20:18)
[2016-06-10] MEDS: ASPIRIN 81 MG CHEW PO SCH (09:16)
[2016-06-10] MEDS: busPIRone HCl 5 MG TAB PO SCH ×3 (09:16→20:17)
[2016-06-10] MEDS: CALCIUM CARBONATE 500 MG CHEWABLE PO SCH (09:16)
[2016-06-10] MEDS: metFORMIN 500 MG TAB PO SCH ×2 (09:17→20:17)
[2016-06-10] MEDS: SERTRALINE 50 MG TAB PO SCH (09:17)
[2016-06-10] MEDS: POLYETHYLENE GLYCOL 3350 17 GM POWD.PACK PO SCH (09:23)
[2016-06-10] MEDS: MULTIVITAMINS, THERA 1 EACH TAB PO SCH (12:12)
[2016-06-10] MEDS: B COMPLEX-VIT C-VIT E-ZINC 1 EACH TAB PO SCH (12:12)
[2016-06-10 12:13] LABS: Glucose,Whole Blood 96 mg/dL (75-99)
[2016-06-10] MEDS ORDERED: SERTRALINE 50 MG TAB PO ONE (17:00)
[2016-06-10 17:11] LABS: Glucose,Whole Blood 117 mg/dL (75-99)
[2016-06-10] MEDS: ALBUTEROL INHALER 60 PUFF/8 GM INHALER INHALATION PRN (17:13)
--- NOTE | 2016-06-10 17:49 | PN ---
[facility] E OF SERVICE: 06/10/2016 CHIEF COMPLAINT: The patient was admitted for apparent psychotic symptoms. She was delusional with paranoid delusions, believing people were spying on her. She had physical symptoms of dizziness and nausea. She describes depression, panic and anxiety. INTERVAL HISTORY: The patient is seen today in cross-coverage for Dr. Blackwood. Patient reports having a difficult time through the weekend. She continued to feel depressed. She has a hopeless outlook. She described feeling numb, having anxiety, racing thoughts and depression. There was a family meeting on Friday with the patient's 2 sons, which the patient said later went well. Dr. Blackwood had made changes in her psychotropic medications, tapering Cymbalta and starting Zoloft. She has not had any problems with the medication changes. She does not feel that she has made much progress. She reports that she did not sleep well through the weekend, though it is noted that she slept over 5 hours both Friday night and Friday night. Staff indicate that she does not appear to make much effort in her treatment; she will sit in her wheelchair and will barely make efforts to walk. She does not interact much with others, though we will look to have one person or another help her in one way or another. She has not had change in her general health. She tolerates her psychotropic medications. MENTAL STATUS: Patient came down the escalona sitting in a wheelchair that was pushed by another patient. She got up at the door and walk in to the office. She gave fair eye contact. Psychomotor activity was slow. Speech was monotone and soft. She answered questions with brief responses. Her thoughts were clear. She did not say a lot. She was not spontaneous or interactive. Her affect was flat, her mood withdrawn. She had a hopeless manner. There was no indication of thought disorder. ASSESSMENT: I will continue the current diagnosis and treatment plan as per Dr. Blackwood's plan. I will discontinue Cymbalta and increase Zoloft to 100 mg a day. She will get second 50 mg tablet today and then tomorrow will start 100 mg in the a.m. I had an extensive discussion with the patient regarding efforts in her treatment. I strongly encouraged her to get on a walking program where she takes regular walks on an hourly basis. We discussed how she can utilize walking to improve body mechanics, reduce anxiety and better manage stress. I discussed that if she does feel anxiety or panic coming on, that making an effort walking can help allay some of her reactions. In response, the patient did walk down the escalona pushing the wheelchair after the appointment. We will continue to focus on stabilization and discharge planning. PAMELLA
[2016-06-10 19:51] LABS: Glucose,Whole Blood 143 mg/dL (75-99)
[2016-06-10] MEDS: PRAVASTATIN SODIUM 80 MG TAB PO SCH (20:18)
[2016-06-10] MEDS: MELATONIN 3 MG TABLET PO PRN (21:49)
[2016-06-10] MEDS: MELATONIN 5 MG TABLET PO PRN (21:49)
[2016-06-11] MEDS: LEVOTHYROXINE 137 MCG TAB PO SCH (06:28)
[2016-06-11 07:01] LABS: Glucose,Whole Blood 128 mg/dL (75-99)
[2016-06-11] MEDS: INSULIN LISPRO (humaLOG) 300 UNIT/3 ML VIAL SQ SCH ×4 (08:01→20:57)
[2016-06-11] MEDS: ASPIRIN 81 MG CHEW PO SCH (09:59)
[2016-06-11] MEDS: PANTOPRAZOLE 40 MG TABLET PO SCH (09:59)
[2016-06-11] MEDS: busPIRone HCl 5 MG TAB PO SCH ×3 (09:59→20:59)
[2016-06-11] MEDS: metFORMIN 500 MG TAB PO SCH ×2 (10:00→20:59)
[2016-06-11] MEDS: SERTRALINE 100 MG TAB PO SCH (10:00)
[2016-06-11] MEDS: FERROUS SULFATE 325 MG TAB PO SCH ×2 (10:00→20:59)
[2016-06-11] MEDS: DOCUSATE 100 MG CAP PO SCH (10:00)
[2016-06-11] MEDS: TRIAMCINOLONE 0.1% CREAM 80 GM TUBE TOPICAL SCH ×2 (10:01→21:15)
[2016-06-11] MEDS: CALCIUM CARBONATE 500 MG CHEWABLE PO SCH (10:01)
[2016-06-11] MEDS: NYSTATIN 100,000UNIT/GM CREAM 30 GM TUBE TOPICAL SCH ×2 (10:01→21:16)
[2016-06-11] MEDS: POLYETHYLENE GLYCOL 3350 17 GM POWD.PACK PO SCH (10:02)
--- NOTE | 2016-06-11 11:57 | P.PN ---
Progress Note - Text Interval history: The patient is found in her room she is resting in bed with a washcloth over her eyes. She reports having some cephalgia and also reports an upset stomach but her stomach symptoms seem to be improving. She only selectively attended groups and tends to isolate in her room. She reports having a supportive visit from her son's over the weekend. We again discussed the medication changes she is now on Zoloft 100 mg daily and the Cymbalta has been discontinued. We discussed the importance of having her engage in outpatient mental health services again. Mental status exam: The patient is a morbidly obese female she is dressed in her own clothing. Eye contact is intermittent. Speech is spontaneous fluent she is brief with answers today. She indicates she is preoccupied with her somatic issues and hasn't "given much thought" to her mood. She expresses a hope that her medication changes will help her feel less depressed. She is reporting no acute suicidal ideation at the moment no homicidal ideation. She is endorsing no auditory or visual hallucinations. Insight and judgment limited. She is oriented to person place and date. Plan: The patient will continue on her current medications. Nursing is asked to ambulate her 3 times a day. We will monitor her for safety and consider a discharge towards the end of the week if she demonstrates sufficient improvement. Vital signs reviewed.
[2016-06-11 12:14] LABS: Glucose,Whole Blood 105 mg/dL (75-99)
[2016-06-11] MEDS: MULTIVITAMINS, THERA 1 EACH TAB PO SCH (12:45)
[2016-06-11] MEDS: B COMPLEX-VIT C-VIT E-ZINC 1 EACH TAB PO SCH (12:45)
[2016-06-11 17:12] LABS: Glucose,Whole Blood 104 mg/dL (75-99)
[2016-06-11] MEDS: ALBUTEROL INHALER 60 PUFF/8 GM INHALER INHALATION PRN (17:31)
[2016-06-11 20:09] LABS: Glucose,Whole Blood 106 mg/dL (75-99)
[2016-06-11] MEDS: PRAVASTATIN SODIUM 80 MG TAB PO SCH (20:59)
[2016-06-11] MEDS: MELATONIN 5 MG TABLET PO PRN (22:05)
[2016-06-11] MEDS: MELATONIN 3 MG TABLET PO PRN (22:05)
[2016-06-12] MEDS: LEVOTHYROXINE 137 MCG TAB PO SCH (05:50)
[2016-06-12 06:30] LABS: Glucose,Whole Blood 115 mg/dL (75-99)
[2016-06-12] MEDS: INSULIN LISPRO (humaLOG) 300 UNIT/3 ML VIAL SQ SCH ×4 (08:17→20:15)
[2016-06-12] MEDS: metFORMIN 500 MG TAB PO SCH ×2 (09:01→20:13)
[2016-06-12] MEDS: PANTOPRAZOLE 40 MG TABLET PO SCH (09:01)
[2016-06-12] MEDS: SERTRALINE 100 MG TAB PO SCH (09:01)
[2016-06-12] MEDS: ASPIRIN 81 MG CHEW PO SCH (09:01)
[2016-06-12] MEDS: POLYETHYLENE GLYCOL 3350 17 GM POWD.PACK PO SCH (09:01)
[2016-06-12] MEDS: busPIRone HCl 5 MG TAB PO SCH ×3 (09:01→21:06)
[2016-06-12] MEDS: CALCIUM CARBONATE 500 MG CHEWABLE PO SCH (09:01)
[2016-06-12] MEDS: DOCUSATE 100 MG CAP PO SCH (09:01)
[2016-06-12] MEDS: FERROUS SULFATE 325 MG TAB PO SCH ×2 (09:01→20:13)
--- NOTE | 2016-06-12 09:58 | P.PN ---
Progress Note - Text Interval history: The patient is found in the hallway [facility] She reports "I'm here" when asked how she is doing. She states she did get up and walk yesterday and tried to attend some groups. We discussed a potential discharge plan of Friday. She voices some concern that she will not feel herself by then. She wonders if we have chosen the right medications and we discussed that we need to give them time to demonstrate efficacy. She expresses concern about the Zoloft being safe for her and that was addressed as well. She is endorsing no hallucinations. She continues to have contact with her sons. Predominantly it seems her issue is acute anxiety facilitating mood symptoms. This occurs in the context of personality disorder symptoms. Mental status exam: The patient is a morbidly obese female mobile with a wheelchair. She is dressed in a house stress eye contact is appropriate speech is fluent spontaneous nonpressured. In general she has a pessimistic outlook. She requires significant encouragement to initiate beneficial behaviors here on the mental health unit. She is reporting no acute suicidal or homicidal ideation. There is no report or evidence of psychosis. Insight and judgment slowly improving. She is oriented to person place and date. Plan: The patient will continue on her current medications. We will attempt to plan for discharge on Friday. We will continue her medications as written. Vital signs reviewed. It will be important for her to reengage in psychotherapy with community mental health individually and group.
[2016-06-12] MEDS: NYSTATIN 100,000UNIT/GM CREAM 30 GM TUBE TOPICAL SCH ×2 (10:01→20:15)
[2016-06-12] MEDS: TRIAMCINOLONE 0.1% CREAM 80 GM TUBE TOPICAL SCH ×2 (10:01→20:15)
[2016-06-12 12:13] LABS: Glucose,Whole Blood 86 mg/dL (75-99)
[2016-06-12] MEDS: B COMPLEX-VIT C-VIT E-ZINC 1 EACH TAB PO SCH (12:36)
[2016-06-12] MEDS: MULTIVITAMINS, THERA 1 EACH TAB PO SCH (12:37)
[2016-06-12] MEDS: ALBUTEROL INHALER 60 PUFF/8 GM INHALER INHALATION PRN (13:10)
[2016-06-12 17:06] LABS: Glucose,Whole Blood 97 mg/dL (75-99)
[2016-06-12 19:54] LABS: Glucose,Whole Blood 139 mg/dL (75-99)
[2016-06-12] MEDS: PRAVASTATIN SODIUM 80 MG TAB PO SCH (20:13)
[2016-06-12] MEDS: ACETAMINOPHEN TAB 325 MG TAB PO PRN (20:17)
[2016-06-12] MEDS: MELATONIN 5 MG TABLET PO PRN (21:06)
[2016-06-12] MEDS: MELATONIN 3 MG TABLET PO PRN (21:08)
[2016-06-13] MEDS: LEVOTHYROXINE 137 MCG TAB PO SCH (06:09)
[2016-06-13 06:12] LABS: Glucose,Whole Blood 127 mg/dL (75-99)
[2016-06-13] MEDS: INSULIN LISPRO (humaLOG) 300 UNIT/3 ML VIAL SQ SCH ×4 (08:01→20:17)
[2016-06-13] MEDS: CALCIUM CARBONATE 500 MG CHEWABLE PO SCH (08:37)
[2016-06-13] MEDS: POLYETHYLENE GLYCOL 3350 17 GM POWD.PACK PO SCH (08:37)
[2016-06-13] MEDS: FERROUS SULFATE 325 MG TAB PO SCH ×2 (08:37→21:13)
[2016-06-13] MEDS: ASPIRIN 81 MG CHEW PO SCH (08:37)
[2016-06-13] MEDS: metFORMIN 500 MG TAB PO SCH ×2 (08:37→21:14)
[2016-06-13] MEDS: DOCUSATE 100 MG CAP PO SCH (08:37)
[2016-06-13] MEDS: busPIRone HCl 5 MG TAB PO SCH ×3 (08:37→21:13)
[2016-06-13] MEDS: PANTOPRAZOLE 40 MG TABLET PO SCH (08:37)
[2016-06-13] MEDS: SERTRALINE 100 MG TAB PO SCH (08:37)
[2016-06-13] MEDS: NYSTATIN 100,000UNIT/GM CREAM 30 GM TUBE TOPICAL SCH ×2 (08:38→21:15)
[2016-06-13] MEDS: TRIAMCINOLONE 0.1% CREAM 80 GM TUBE TOPICAL SCH ×2 (08:39→21:15)
[2016-06-13 09:19] VITALS: BMI 8363.0
[2016-06-13] MEDS: ACETAMINOPHEN TAB 325 MG TAB PO PRN (09:38)
--- NOTE | 2016-06-13 09:51 | P.PN ---
Progress Note - Text Interval history: The patient is found in her room she reports she is experiencing a headache she has just taken Tylenol to try to relieve those symptoms. She reports that she did walk yesterday in the hallway and she attended groups. She has no questions regarding her psychotropic medication. She states it has been a few days since she showered she is encouraged to do so. Mental status exam: The patient is alert she is lying in bed awake. Eye contact is intermittent. Speech is spontaneous fluent nonpressured. She reports her mood is troubled by her current cephalgia but otherwise she feels "okay". Affect is constricted. She limits her responses to brief answers. She is reporting no acute suicidal or homicidal ideation intent or plan. She is endorsing no acute hallucinations or specific delusions there is no evidence of psychosis. She does not appear hypomanic or manic. Insight and judgment are slowly improving. She demonstrates no verbal or physical aggressiveness. Hygiene is impaired there is a follow odor in her room she is aware. Plan: The patient will be continued on her current psychotropic medication. We will consider discharge tomorrow if the patient demonstrates clinical stability. We have made adjustments to her medications to address depressive and anxiety symptoms. She would benefit from reading engaging in DBT group therapy with [facility]. She is encouraged to attend groups today ambulate in the hallway. Vital signs reviewed.
[2016-06-13] MEDS: B COMPLEX-VIT C-VIT E-ZINC 1 EACH TAB PO SCH (12:25)
[2016-06-13] MEDS: MULTIVITAMINS, THERA 1 EACH TAB PO SCH (12:25)
[2016-06-13 12:29] LABS: Glucose,Whole Blood 150 mg/dL (75-99)
[2016-06-13 15:12] VITALS: PULSE 70; RESP 16
[2016-06-13 17:50] LABS: Glucose,Whole Blood 107 mg/dL (75-99)
[2016-06-13 19:58] LABS: Glucose,Whole Blood 107 mg/dL (75-99)
[2016-06-13] MEDS: PRAVASTATIN SODIUM 80 MG TAB PO SCH (21:14)
[2016-06-13] MEDS: MELATONIN 3 MG TABLET PO PRN (23:07)
[2016-06-13] MEDS: MELATONIN 5 MG TABLET PO PRN (23:07)
[2016-06-14] MEDS: LEVOTHYROXINE 137 MCG TAB PO SCH (05:31)
[2016-06-14 06:52] VITALS: TEMP 98.2
[2016-06-14 07:06] LABS: Glucose,Whole Blood 129 mg/dL (75-99)
[2016-06-14] MEDS: INSULIN LISPRO (humaLOG) 300 UNIT/3 ML VIAL SQ SCH ×3 (07:54→17:17)
[2016-06-14] MEDS: FERROUS SULFATE 325 MG TAB PO SCH (08:20)
[2016-06-14] MEDS: busPIRone HCl 5 MG TAB PO SCH ×2 (08:20→15:40)
[2016-06-14] MEDS: metFORMIN 500 MG TAB PO SCH (08:20)
[2016-06-14] MEDS: PANTOPRAZOLE 40 MG TABLET PO SCH (08:20)
[2016-06-14] MEDS: ASPIRIN 81 MG CHEW PO SCH (08:20)
[2016-06-14] MEDS: DOCUSATE 100 MG CAP PO SCH (08:20)
[2016-06-14] MEDS: CALCIUM CARBONATE 500 MG CHEWABLE PO SCH (08:20)
[2016-06-14] MEDS: SERTRALINE 100 MG TAB PO SCH (08:21)
[2016-06-14] MEDS: POLYETHYLENE GLYCOL 3350 17 GM POWD.PACK PO SCH (08:21)
[2016-06-14] MEDS: NYSTATIN 100,000UNIT/GM CREAM 30 GM TUBE TOPICAL SCH (08:21)
[2016-06-14] MEDS: TRIAMCINOLONE 0.1% CREAM 80 GM TUBE TOPICAL SCH (08:21)
--- NOTE | 2016-06-14 10:10 | P.DS ---
Providers Date of admission: 06/01/16 18:03 Expected date of discharge: 06/14/16 Attending physician: Ramiro Blackwood Consults: 06/01/16 13:30 Consult Physician Routine Consulting Provider: Fabby Ascencio Consult Reason/Comments: Follow up H & P Do you want consulting provider notified?: Yes 06/02/16 22:58 Consult Physician Routine Consulting Provider: Fabby Ascencio Consult Reason/Comments: Ongoing nausea, severe headaches, and dizziness Do you want consulting provider notified?: Yes, Notify in am Primary care physician: Stated None - Discharge Diagnosis(es) (1) Major depressive disorder, recurrent severe without psychotic features Current Visit: Yes Status: Acute Priority: High (2) Generalized anxiety disorder Current Visit: Yes Status: Acute Priority: High Hospital Course: Brief summary of admission note: The patient was admitted to the mental health unit from another hospital with a petition indicating she was experiencing hallucinations and delusions. It had indicated that she felt people were spying on her and that there were cameras in her room. There were reports that she was experiencing a depressed mood with passive suicidal ideation. She was somatically preoccupied discussing concerned about headaches, dizziness, nausea. For full details please refer to the psychiatric evaluation. Summary of hospital course: The patient was initially seen by the [facility] physician covering the weekend. I assumed her care during that week. The patient is known to the psychiatric service and I have cared for her in the past on this mental health unit. She does have a history of depressive and anxiety symptoms. She did not appear psychotic in reviewing the psychiatric evaluation. She did discuss struggling with symptoms of psychosis at the other hospital which may have been part of a delirium reaction. She felt that she was having difficulty focusing felt confused and was hallucinating because of opiate analgesics she was given to treat pain related to a recent fall. She has been treated with several psychotropics in the past. During her hospitalization I was able to speak with Carey Bianchi her prescribing nurse practitioner with [facility] to discuss options. We decided to cross taper her off of her current antidepressant and transitioned her to Zoloft her BuSpar was lowered she was maintained on melatonin at bedtime. The patient expressed an interest in being tapered off of benzodiazepines and that was accomplished with use of Ativan. She was previously using Xanax. She was medically cleared at the other hospital which included a head CT without contrast. She was seen by the medical certification specialist for routine medical examination on the mental health unit. The patient selectively attended groups. She utilized a wheelchair predominantly for mobility but we did get her walking each shift. The patient does demonstrate some dependent traits and often would ask staff for assistance for things she could do or would enlist other patients to assist in her mobility or getting things. Social work contacted her sons frequently to discuss her progress and discharge planning. She demonstrated no agitated behavior. We have successfully transitioned her medications she is reporting an improved clinical status. Chronically she has a pessimistic view of the future but no acute suicidal ideation intent or plan. Mental status exam: The patient is a morbidly obese female appearing her stated age. She is pleasant and cooperative. She is alert she makes appropriate eye contact speech is fluent spontaneous nonpressured. She reports her mood is better she still feels anxious at times. Affect is mildly reactive she is constricted at times. She is reporting no suicidal or homicidal ideation intent or plan. She is endorsing no auditory or visual hallucinations she is endorsing no specific delusions. She will refer to remembering having some of those symptoms at the other hospital which may have been part of the delirium reaction. There is no overt evidence of psychosis at this time. She does not appear hypomanic or manic. She demonstrates no verbal or physical aggressiveness. Thought process is linear she demonstrates no tangential thinking loose associations or flight of ideas. Cognitively she is grossly intact she is alert and oriented to person place and date. Impressions 1. Major depressive disorder recurrent severe without psychosis, rule out recent resolved delirium, generalized anxiety disorder 2. Dependent and borderline personality disorder traits 3. Medical comorbidities affecting mood Plan: The patient will be discharged mental health unit today to return home residing with her sons. Social work will confirm appointments with community mental health clinicians. She will continue on Zoloft 100 mg daily, BuSpar 15 mg 3 times daily, melatonin 8 mg at bedtime. There is no imminent safety risk she is appropriate for transition to outpatient care. She will follow up with her primary care physician as needed. She is instructed to return to the hospital for any acute safety concerns. Patient Condition at Discharge: Stable Plan - Discharge Summary New Discharge Prescriptions: Melatonin 3 mg PO HS PRN #30 tablet PRN Reason: sleep deprivation Melatonin 5 mg PO HS PRN #30 tablet PRN Reason: sleep deprivation Pantoprazole [Protonix] 40 mg PO AC-BRKFST #30 tablet. Sertraline [Zoloft] 100 mg PO DAILY #30 tab busPIRone HCL 15 mg PO TID #90 tab Discharge Medication List Aspirin 81 mg PO DAILY 30 Days 12/29/13 [Rx] Pravastatin Sodium [Pravachol] 80 mg PO HS 30 Days 12/29/13 [Rx] Albuterol Inhaler [Ventolin Hfa Inhaler] 2 puff INHALATION RT-Q4H PRN 04/22/16 [ History] Calcium Carbonate [Calcium] 600 mg PO DAILY 04/22/16 [History] Ferrous Sulfate [Feosol] 325 mg PO BID 04/22/16 [History] Fish Oil/Dha/Epa [Fish Oil 1,200 mg Fish Oil] 1 cap PO BID 04/22/16 [History] Levothyroxine Sodium [Synthroid] 137 mcg PO QAM 04/22/16 [History] Multivitamins, Thera [Multivitamin (formulary)] 1 tab PO DAILY 04/22/16 [History ] Prazosin [Minipress] 1 mg PO HS 04/22/16 [History] Vitamin B Complex 1 cap PO DAILY 04/22/16 [History] metFORMIN HCL [Glucophage] 500 mg PO BID 04/22/16 [History] Melatonin 3 mg PO HS PRN #30 tablet 06/14/16 [Rx] Melatonin 5 mg PO HS PRN #30 tablet 06/14/16 [Rx] Pantoprazole [Protonix] 40 mg PO AC-BRKFST #30 tablet. 06/14/16 [Rx] Polyethylene Glycol 3350 [Miralax] 17 gm PO DAILY powd.pack 06/14/16 [Rx] Sertraline [Zoloft] 100 mg PO DAILY #30 tab 06/14/16 [Rx] busPIRone HCL 15 mg PO TID #90 tab 06/14/16 [Rx] Follow up Appointment(s)/Referral(s): [facility] [Outside] - 07/01/16 3:00 pm (Carey Lunsford [facility] [Outside] - 06/21/16 10:00 am (Nubia Tran) Gracie Medrano DO [REFERRING] - 1 Week
[2016-06-14 12:54] LABS: Glucose,Whole Blood 101 mg/dL (75-99)
[2016-06-14] MEDS: MULTIVITAMINS, THERA 1 EACH TAB PO SCH (13:00)
[2016-06-14] MEDS: B COMPLEX-VIT C-VIT E-ZINC 1 EACH TAB PO SCH (13:00)
[2016-06-14 15:17] VITALS: BP 119/64
[2016-06-14 17:14] LABS: Glucose,Whole Blood 106 mg/dL (75-99)
== END 2016-06-14 19:30 | disposition home or self-care (01) | DRG 885 ==
LOC: 3MHU 18:03
PROVIDERS: ADMIT Psychiatry & Neurology Psychiatry; ATTEND Psychiatry & Neurology Psychiatry
DX: F33.2 Major depressive disorder, recurrent severe without psychotic features (principal); E66.01 Morbid (severe) obesity due to excess calories; R45.851 Suicidal ideations; E11.9 Type 2 diabetes mellitus without complications; E03.9 Hypothyroidism, unspecified; E78.5 Hyperlipidemia, unspecified; F41.1 Generalized anxiety disorder; F60.3 Borderline personality disorder; G47.30 Sleep apnea, unspecified; J45.909 Unspecified asthma, uncomplicated; K21.9 Gastro-esophageal reflux disease without esophagitis; Z79.899 Other long term (current) drug therapy; Z82.49 Family history of ischemic heart disease and other diseases of the circulatory system; Z87.442 Personal history of urinary calculi; Z91.5 Personal history of self-harm; Z96.1 Presence of intraocular lens; Z98.41 Cataract extraction status, right eye; Z98.42 Cataract extraction status, left eye
CPT/HCPCS: 70450; 80053; 83036; 84443; 85025; 93005; 94640

== ENCOUNTER 2018-01-22 10:13 | Observation (INO) | payer MEDICARE, OTHER ==
--- NOTE | 2018-01-22 11:12 | ED ---
General Adult HPI - General Chief complaint: Chest Pain Stated complaint: Chest pain Source: patient, EMS Mode of arrival: EMS Limitations: no limitations - History of Present Illness Initial comments: Dictation was produced using [employer] dictation software. please excuse any grammatical, word or spelling errors. Chief Complaint: 62-year-old female with multiple comorbidities presents with left sided chest pain with radiation to the arm. History of Present Illness: Patient was at her primary care physician's office to get her flu shot. She complained to her PCP that she is having crushing chest pain with radiation to the left upper extremity. Patient states she does not have a history of coronary artery disease. Her PCP called an ambulance and sent her to the emergency department. Patient denies any associated diaphoresis patient is given nitroglycerin in the ambulance without any improvement of symptoms. Patient states her symptoms are described as sharp and dull but mostly dull with pressure sensation over the left anterior chest. The ROS documented in this emergency department record has been reviewed and confirmed by me. Those systems with pertinent positive or negative responses have been documented in the HPI. All other systems are other negative and/or noncontributory. - Related Data Home Medications Medication Instructions Recorded Confirmed Albuterol Inhaler [Ventolin Hfa 2 puff INHALATION RT-Q4H PRN 04/22/16 01/22/18 Inhaler] Calcium Carbonate [Calcium] 600 mg PO DAILY 04/22/16 01/22/18 Ferrous Sulfate [Feosol] 325 mg PO BID 04/22/16 01/22/18 Fish Oil/Dha/Epa [Fish Oil 1,200 1 cap PO BID 04/22/16 01/22/18 mg Fish Oil] Multivitamins, Thera [Multivitamin 1 tab PO DAILY 04/22/16 01/22/18 (formulary)] Vitamin B Complex 1 cap PO DAILY 04/22/16 01/22/18 metFORMIN HCL [Glucophage] 500 mg PO BID 04/22/16 01/22/18 Albuterol Nebulized (Conc) 2.5 mg INHALATION RT-Q6H 01/22/18 01/22/18 [Ventolin Nebulized (Conc)] Atorvastatin [Lipitor] 80 mg PO HS 01/22/18 01/22/18 Levothyroxine Sodium 150 mg PO DAILY 01/22/18 01/22/18 Lisinopril [Prinivil] 10 mg PO DAILY 01/22/18 01/22/18 Meclizine [Antivert] 25 mg PO DAILY PRN 01/22/18 01/22/18 Omeprazole 20 mg PO DAILY 01/22/18 01/22/18 lamoTRIgine [LaMICtal] 50 mg PO HS 01/22/18 01/22/18 Previous Rx's Medication Instructions Recorded Aspirin 81 mg PO DAILY 30 Days chew 12/29/13 Melatonin 5 mg PO HS PRN #30 tablet 06/14/16 Sertraline [Zoloft] 100 mg PO DAILY #30 tab 06/14/16 Allergies Allergy/AdvReac Type Severity Reaction Status Date / Time sulfamethoxazole Allergy Unknown Rash/Hives, Verified 01/22/18 11:16 [From Bactrim] SOB trimethoprim [From Bactrim] Allergy Unknown Rash/Hives, Verified 01/22/18 11:16 SOB Review of Systems ROS Statement: Those systems with pertinent positive or pertinent negative responses have been documented in the HPI. ROS Other: All systems not noted in ROS Statement are negative. Past Medical History Past Medical History: Asthma, Chest Pain / Angina, Diabetes Mellitus, GERD/ Reflux, Hyperlipidemia, Sleep Apnea/CPAP/BIPAP, Thyroid Disorder Additional Past Medical History / Comment(s): anemia, chest pain "from anxiety" , sometimes low BP, occ palpitations, diverticulosis, kidney stone History of Any Multi-Drug Resistant Organisms: None Reported Past Surgical History: Section, Heart Catheterization, Hernia Repair, Tonsillectomy Additional Past Surgical History / Comment(s): 2, umbilical hernia repair, open surgery for Kidney stones removed, bilateral cataract extraction and intraocular lens implants. Past Anesthesia/Blood Transfusion Reactions: Family History of Problems w/ Anesthesia, Motion Sickness Additional Past Anesthesia/Blood Transfusion Reaction / Comment(s): sister had diff breathing from anesthesia Past Psychological History: Anxiety, Bipolar, Depression Smoking Status: Never smoker Past Alcohol Use History: None Reported Past Drug Use History: None Reported - Past Family History Son(s) Additional Family Medical History / Comment(s): She has 2 sons with no major medical problems. Patient does not have any daughters. Mother Additional Family Medical History / Comment(s): Mother at age 80 from renal failure. Father Additional Family Medical History / Comment(s): Father at age 67 with history of ID and stroke Brother(s) Family Medical History: Cancer Additional Family Medical History / Comment(s): She has total of 5 brothers and all had history of coronary artery disease and CABG, hypertension, hyperlipidemia, diabetes. Sister(s) Family Medical History: Cancer Additional Family Medical History / Comment(s): one sister of colon cancer , second sister had ovarian cancer General Exam - General Exam Comments Initial Comments: PHYSICAL EXAM: General Impression: Alert and oriented x3, not in acute distress HEENT: Normocephalic atraumatic, extra-ocular movements intact, pupils equal and reactive to light bilaterally, mucous membranes moist. Cardiovascular: Heart regular rate and rhythm, S1&S2 audible, no murmurs, rubs or gallops Chest: Lungs clear to auscultation bilaterally, no rhonchi, no wheeze, no rales Abdomen: Bowel sounds present, abdomen soft, non-tender, non-distended, no organomegaly Musculoskeletal: Pulses present and equal in all extremities, no peripheral edema Motor: Power 5/5 bilaterally, no focal deficits noted Neurological: CN II-XII grossly intact, no focal motor or sensory deficits noted Skin: Intact with no visualized rashes Psych: Normal affect and mood Limitations: no limitations Course Vital Signs 01/22/18 10:17 Temperature 98.3 F Pulse Rate 61 Respiratory 20 Rate Blood Pressure 129/71 O2 Sat by Pulse 98 Oximetry Medical Decision Making - Medical Decision Making ED course: 62 yo female with chief complaint of chest pain. Vital signs upon arrival are within normal limits.Laboratory evaluation obtained. CBC, coag panel, metabolic panel is unremarkable. First set of cardiac troponins are negative. Chest x-ray is negative. Clinical presentation is consistent with atypical chest pain with typical features. Patient given aspirin. We'll plan to have admitted patient to observation for serial troponins. EKG interpretation: Ventricular rate 62, normal sinus rhythm, WV interval 152, care 76, QTC 464. No WV prolongation, no QTC prolongation, no ST or T-wave changes noted. Overall, this EKG is unremarkable - Lab Data Result diagrams: 01/22/18 11:36 01/22/18 11:36 Lab Results 01/22/18 01/22/18 01/22/18 Range/Units 11:36 11:36 11:36 WBC 8.1 (3.8-10.6) k/uL RBC 4.59 (3.80-5.40) m/uL Hgb 11.7 (11.4-16.0) gm/dL Hct 37.6 (34.0-46.0) % MCV 81.8 (80.0-100.0) fL MCH 25.5 (25.0-35.0) pg MCHC 31.1 (31.0-37.0) g/dL RDW 14.0 (11.5-15.5) % Plt Count 268 (150-450) k/uL Neutrophils % 67 % Lymphocytes % 23 % Monocytes % 5 % Eosinophils % 2 % Basophils % 1 % Neutrophils # 5.5 (1.3-7.7) k/uL Lymphocytes # 1.9 (1.0-4.8) k/uL Monocytes # 0.4 (0-1.0) k/uL Eosinophils # 0.1 (0-0.7) k/uL Basophils # 0.1 (0-0.2) k/uL PT (9.0-12.0) sec INR (<1.2) APTT (22.0-30.0) sec Sodium 140 (137-145) mmol/L Potassium 4.7 (3.5-5.1) mmol/L Chloride 108 H (98-107) mmol/L Carbon Dioxide 22 (22-30) mmol/L Anion Gap 10 mmol/L BUN 17 (7-17) mg/dL Creatinine 0.75 (0.52-1.04) mg/dL Est GFR (CKD-EPI)AfAm >90 (>60 ml/min/1.73 sqM) Est GFR (CKD-EPI)NonAf 87 (>60 ml/min/1.73 sqM) Glucose 134 H (74-99) mg/dL Calcium 9.6 (8.4-10.2) mg/dL Magnesium 1.7 (1.6-2.3) mg/dL Total Bilirubin 0.6 (0.2-1.3) mg/dL AST 25 (14-36) U/L ALT 25 (9-52) U/L Alkaline Phosphatase 54 (38-126) U/L Total Creatine Kinase 103 (30-135) U/L CK-MB (CK-2) 1.3 (0.0-2.4) ng/mL CK-MB (CK-2) Rel Index 1.3 Troponin I <0.012 (0.000-0.034) ng/mL Total Protein 7.1 (6.3-8.2) g/dL Albumin 4.1 (3.5-5.0) g/dL 01/22/18 Range/Units 11:36 WBC (3.8-10.6) k/uL RBC (3.80-5.40) m/uL Hgb (11.4-16.0) gm/dL Hct (34.0-46.0) % MCV (80.0-100.0) fL MCH (25.0-35.0) pg MCHC (31.0-37.0) g/dL RDW (11.5-15.5) % Plt Count (150-450) k/uL Neutrophils % % Lymphocytes % % Monocytes % % Eosinophils % % Basophils % % Neutrophils # (1.3-7.7) k/uL Lymphocytes # (1.0-4.8) k/uL Monocytes # (0-1.0) k/uL Eosinophils # (0-0.7) k/uL Basophils # (0-0.2) k/uL PT 10.0 (9.0-12.0) sec INR 1.0 (<1.2) APTT 21.6 L (22.0-30.0) sec Sodium (137-145) mmol/L Potassium (3.5-5.1) mmol/L Chloride (98-107) mmol/L Carbon Dioxide (22-30) mmol/L Anion Gap mmol/L BUN (7-17) mg/dL Creatinine (0.52-1.04) mg/dL Est GFR (CKD-EPI)AfAm (>60 ml/min/1.73 sqM) Est GFR (CKD-EPI)NonAf (>60 ml/min/1.73 sqM) Glucose (74-99) mg/dL Calcium (8.4-10.2) mg/dL Magnesium (1.6-2.3) mg/dL Total Bilirubin (0.2-1.3) mg/dL AST (14-36) U/L ALT (9-52) U/L Alkaline Phosphatase (38-126) U/L Total Creatine Kinase (30-135) U/L CK-MB (CK-2) (0.0-2.4) ng/mL CK-MB (CK-2) Rel Index Troponin I (0.000-0.034) ng/mL Total Protein (6.3-8.2) g/dL Albumin (3.5-5.0) g/dL Disposition Clinical Impression: Chest pain Disposition: ADMITTED IP TO THIS HOSP Condition: Fair Referrals: Gracie Medrano DO [Primary Care Provider] - 1-2 days Decision Time: 12:37
[2018-01-22] MEDS ORDERED: SODIUM CHLORIDE 0.9% 500 ML 500 ML IV STA (11:14)
[2018-01-22] MEDS ORDERED: ASPIRIN 81 MG PO STA (11:14)
--- NOTE | 2018-01-22 11:32 | XR ---
EXAMINATION TYPE: XR chest 2V DATE OF EXAM: 01/22/2018 COMPARISON: 04/22/2016 TECHNIQUE: PA and lateral views submitted. HISTORY: Chest pain FINDINGS: The lungs are clear and there is no pneumothorax, pleural effusion, or focal pneumonia. Heart size stable. No overt failure. Mild prominence of the hilum stable. Hypertrophic and degenerative change o f the spine. Atherosclerotic change aorta. IMPRESSION: 1. No acute process.
[2018-01-22 12:10] LABS: Basophils # (A) 0.1 k/uL (0-0.2); Basophils % (A) 1 %; Eosinophils # (A) 0.1 k/uL (0-0.7); Eosinophils % (A) 2 %; HCT 37.6 % (34.0-46.0); HGB 11.7 gm/dL (11.4-16.0); Lymphocytes # (A) 1.9 k/uL (1.0-4.8); Lymphocytes % (A) 23 %; MCH 25.5 pg (25.0-35.0); MCHC 31.1 g/dL (31.0-37.0); MCV 81.8 fL (80.0-100.0); Mean Platelet Volume 7.7; Monocytes # (A) 0.4 k/uL (0-1.0); Monocytes % (A) 5 %; Neutrophils # (A) 5.5 k/uL (1.3-7.7); Neutrophils % (A) 67 %; Platelet Count 268 k/uL (150-450); RBC 4.59 m/uL (3.80-5.40); WBC 8.1 k/uL (3.8-10.6)
[2018-01-22 12:14] LABS: ALT 25 U/L (9-52); AST 25 U/L (14-36); Albumin 4.1 g/dL (3.5-5.0); Alkaline Phosphatase 54 U/L (38-126); Anion Gap 10 mmol/L; Blood Urea Nitrogen 17 mg/dL (7-17); Calcium 9.6 mg/dL (8.4-10.2); Carbon Dioxide 22 mmol/L (22-30); Chloride 108 mmol/L (98-107); Glucose 134 mg/dL (74-99); Magnesium 1.7 mg/dL (1.6-2.3); Potassium 4.7 mmol/L (3.5-5.1); Sodium 140 mmol/L (137-145); Total Bilirubin 0.6 mg/dL (0.2-1.3); Total Protein 7.1 g/dL (6.3-8.2)
[2018-01-22 12:19] LABS: Creatine Kinase 103 U/L (30-135)
[2018-01-22 12:28] LABS: Partial Thromboplastin Time 21.6 sec (22.0-30.0)
[2018-01-22 12:32] LABS: Creatine Kinase MB 1.3 ng/mL (0.0-2.4); Troponin I <0.012 ng/mL (0.000-0.034)
[2018-01-22] MEDS ORDERED: NITROGLYCERIN SL TABS 0.4 MG TAB SUBLINGUAL PRN (12:37)
[2018-01-22] MEDS ORDERED: MELATONIN 5 MG TABLET PO PRN (17:10)
[2018-01-22] MEDS ORDERED: MECLIZINE 25 MG TAB PO PRN (17:10)
[2018-01-22] MEDS ORDERED: ALBUTEROL NEBULIZED 2.5 MG/3 ML INHALATION PRN (17:10)
--- NOTE | 2018-01-22 17:19 | P.HPIM ---
History of Present Illness 8-year-old female came in with complaints of chest pain restarted couple days ago constant pain 8/10 severity and radiates to the left starts in the neck also has posterior headache chest x-ray did show severe degenerative spine disease with osteophytes. Patient did complain of some nausea denied and diaphoresis increasing shortness of breath lightheadedness. Patient's chest pain is nonpruritic in nature sharp and pressure-like sensation. EKG did not show any acute ST-T wave changes patient had a cardiac catheterization and a stress test about any ago in outside hospital medical liters will be REPLACED. PATIENT'S FIRST SET OF TROPONIN IS NEGATIVE PATIENT CHEST PAIN IS REPRODUCIBLE INCREASE THIS TO 10/10. Review of Systems REVIEW OF SYSTEMS: CONSTITUTIONAL: No fever, no malaise, no fatigue. HEENT: No recent visual problems or hearing problems. Denied any sore throat. CARDIOVASCULAR: No orthopnea, PND, no palpitations, no syncope. PULMONARY: No shortness of breath, no cough, no hemoptysis. GASTROINTESTINAL: No diarrhea, no nausea, no vomiting, no abdominal pain. Normoactive bowel sounds. NEUROLOGICAL: No headaches, no weakness, no numbness. HEMATOLOGICAL: Denies any bleeding or petechiae. GENITOURINARY: Denies any burning micturition, frequency, or urgency. MUSCULOSKELETAL/RHEUMATOLOGICAL: Denies any joint pain, swelling, or any muscle pain. ENDOCRINE: Denies any polyuria or polydipsia. The rest of the 14-point review of systems is negative. 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 Past Anesthesia/Blood Transfusion Reactions: Family History of Problems w/ Anesthesia, Motion Sickness Additional Past Anesthesia/Blood Transfusion Reaction / Comment(s): clausterphobia. pt's sister had diff breathing from anesthesia Past Psychological History: Anxiety, Depression, Panic Disorder Additional Psychological History / Comment(s): boarderline personality disorder Smoking Status: Never smoker Past Alcohol Use History: None Reported Past Drug Use History: None Reported - Past Family History Son(s) Additional Family Medical History / Comment(s): She has 2 sons with no major medical problems. Patient does not have any daughters. Mother Additional Family Medical History / Comment(s): Mother at age 80 from renal failure. Father Additional Family Medical History / Comment(s): Father at age 67 with history of MD and stroke Brother(s) Family Medical History: Cancer Additional Family Medical History / Comment(s): She has total of 5 brothers and all had history of coronary artery disease and CABG, hypertension, hyperlipidemia, diabetes. Sister(s) Family Medical History: Cancer Additional Family Medical History / Comment(s): one sister of colon cancer , second sister had ovarian cancer Medications and Allergies Home Medications Medication Instructions Recorded Confirmed Type Aspirin 81 mg PO DAILY 30 Days chew 12/29/13 01/22/18 Rx Albuterol Inhaler [Ventolin Hfa 2 puff INHALATION RT-Q4H PRN 04/22/16 01/22/18 History Inhaler] Calcium Carbonate [Calcium] 600 mg PO DAILY 04/22/16 01/22/18 History Ferrous Sulfate [Feosol] 325 mg PO BID 04/22/16 01/22/18 History Fish Oil/Dha/Epa [Fish Oil 1,200 1 cap PO BID 04/22/16 01/22/18 History mg Fish Oil] Multivitamins, Thera [Multivitamin 1 tab PO DAILY 04/22/16 01/22/18 History (formulary)] Vitamin B Complex 1 cap PO DAILY 04/22/16 01/22/18 History metFORMIN HCL [Glucophage] 500 mg PO BID 04/22/16 01/22/18 History Melatonin 5 mg PO HS PRN #30 tablet 06/14/16 01/22/18 Rx Sertraline [Zoloft] 100 mg PO DAILY #30 tab 06/14/16 01/22/18 Rx Albuterol Nebulized (Conc) 2.5 mg INHALATION RT-Q6H 01/22/18 01/22/18 History [Ventolin Nebulized (Conc)] Atorvastatin [Lipitor] 80 mg PO HS 01/22/18 01/22/18 History Levothyroxine Sodium 150 mg PO DAILY 01/22/18 01/22/18 History Lisinopril [Prinivil] 10 mg PO DAILY 01/22/18 01/22/18 History Meclizine [Antivert] 25 mg PO DAILY PRN 01/22/18 01/22/18 History Omeprazole 20 mg PO DAILY 01/22/18 01/22/18 History lamoTRIgine [LaMICtal] 50 mg PO HS 01/22/18 01/22/18 History Allergies Allergy/AdvReac Type Severity Reaction Status Date / Time sulfamethoxazole Allergy Unknown Rash/Hives, Verified 01/22/18 11:16 [From Bactrim] SOB trimethoprim [From Bactrim] Allergy Unknown Rash/Hives, Verified 01/22/18 11:16 SOB Physical Exam Vitals: Vital Signs Temp Pulse Resp BP Pulse Ox 01/22/18 16:32 98.6 F 22 01/22/18 16:30 66 20 139/76 93 L 01/22/18 16:00 62 20 141/76 96 01/22/18 15:30 63 20 127/77 98 01/22/18 15:01 61 20 142/89 97 01/22/18 14:30 22 142/89 01/22/18 14:00 68 22 129/71 98 01/22/18 13:30 62 22 130/72 01/22/18 13:00 61 22 109/65 96 01/22/18 12:30 63 21 128/74 99 01/22/18 12:00 64 21 133/78 98 01/22/18 11:30 62 22 116/72 01/22/18 11:00 61 22 131/75 8 L 01/22/18 10:30 61 21 129/71 97 01/22/18 10:17 98.3 F 61 20 129/71 98 Intake and Output 01/22/18 01/22/18 01/22/18 06:59 14:59 22:59 Other: Weight 158.757 kg PHYSICAL EXAMINATION: GENERAL: The patient is alert and oriented x3, not in any acute distress. Morbidly obese with BMI of 68 HEENT: Pupils are round and equally reacting to light. EOMI. No scleral icterus. No conjunctival pallor. Normocephalic, atraumatic. No pharyngeal erythema. No thyromegaly. CARDIOVASCULAR: S1 and S2 present. No murmurs, rubs, or gallops. PULMONARY: Chest is clear to auscultation, no wheezing or crackles. Reproducible chest pain ABDOMEN: Soft, nontender, nondistended, normoactive bowel sounds. No palpable organomegaly. MUSCULOSKELETAL: No joint swelling or deformity. EXTREMITIES: No cyanosis, clubbing, or pedal edema. NEUROLOGICAL: Gross neurological examination did not reveal any focal deficits. SKIN: No rashes. Results CBC & Chem 7: 01/22/18 11:36 01/22/18 11:36 Labs: Abnormal Lab Results - Last 24 Hours (Table) 01/22/18 01/22/18 Range/Units 11:36 11:36 APTT 21.6 L (22.0-30.0) sec Chloride 108 H (98-107) mmol/L Glucose 134 H (74-99) mg/dL Assessment and Plan Plan: -Chest pain: Mostly musculoskeletal from degenerative neck disease. Considering her age and risk factors we'll rule out a concurrent syndromes unstable angina. Will obtain medical records from outside hospitals where she had a cardiac catheterization never had any acute myocardial infarctions in the past. -Morbid obesity with sleep apnea: Continue CPAP machine A counseling was provided -Asthma without any acute examination exam hypothyroidism continue with levothyroxine Gastroesophageal reflux disease: Continue with Prilosec -Hyperlipidemia -Type 2 diabetes mellitus patient is on metformin which will be held and patient will be started on sliding scale insulin -Depression
[2018-01-22 17:29] LABS: Glucose,Whole Blood 101 mg/dL (75-99)
[2018-01-22] MEDS: INSULIN ASPART 100 UNIT/ML 1 ML 10 ML VIAL SQ SCH ×2 (17:31→21:03)
[2018-01-22 18:49] LABS: Creatine Kinase 102 U/L (30-135)
[2018-01-22 19:02] LABS: Creatine Kinase MB 1.4 ng/mL (0.0-2.4); Troponin I <0.012 ng/mL (0.000-0.034)
[2018-01-22] MEDS ORDERED: ACETAMINOPHEN TAB 325 MG TAB PO PRN (19:15)
[2018-01-22 20:31] LABS: Glucose,Whole Blood 111 mg/dL (75-99)
[2018-01-22] MEDS ORDERED: IBUPROFEN 800 MG TAB PO STA (20:52)
[2018-01-22] MEDS ORDERED: lamoTRIgine 25 MG TAB PO SCH (21:00)
[2018-01-22] MEDS ORDERED: ATORVASTATIN 80 MG TAB PO SCH (21:00)
[2018-01-22] MEDS ORDERED: SERTRALINE 100 MG TAB PO SCH (21:00)
[2018-01-22 23:09] LABS: Cholesterol 161 mg/dL (<200); HDL Cholesterol 43 mg/dL (40-60); LDL Cholesterol,Calculated 58 mg/dL (0-99); Triglycerides 298 mg/dL (<150)
[2018-01-23 00:24] LABS: Creatine Kinase 93 U/L (30-135)
[2018-01-23 00:39] LABS: Creatine Kinase MB 1.3 ng/mL (0.0-2.4); Troponin I <0.012 ng/mL (0.000-0.034)
[2018-01-23] MEDS ORDERED: LEVOTHYROXINE 75 MCG TAB PO SCH (06:30)
[2018-01-23 07:02] LABS: Glucose,Whole Blood 141 mg/dL (75-99)
[2018-01-23] MEDS ORDERED: PANTOPRAZOLE 40 MG TABLET PO SCH (07:30)
[2018-01-23] MEDS ORDERED: DOBUTamine DRIP for NUC MED 500 MG in DEXTROSE/WATER 1 250ML.BAG IV ONE (07:32)
[2018-01-23] MEDS ORDERED: ASPIRIN 325 MG TAB PO SCH (09:00)
[2018-01-23] MEDS ORDERED: LOSARTAN 50 MG TAB PO SCH (09:00)
[2018-01-23] MEDS ORDERED: ASPIRIN 81 MG PO SCH (09:00)
[2018-01-23] MEDS ORDERED: CALCIUM CARBONATE 500 MG CHEWABLE PO SCH (09:00)
[2018-01-23] MEDS ORDERED: SERTRALINE 100 MG TAB PO SCH (09:00)
[2018-01-23] MEDS ORDERED: LISINOPRIL 10 MG TAB PO SCH (09:00)
--- NOTE | 2018-01-23 09:08 | CONS ---
CONSULTATION Mrs. Welch is a 62-year-old female with known history of hypertension, hyperlipidemia, diabetes mellitus, and history of asthma, who presented with symptoms of chest discomfort. She has been having discomfort persistent for the last few days. The discomfort is not positional. She has chronic dyspnea on exertion and she is quite limited in her physical activity. She has no prior history of cardiac disease and according to her underwent cardiac catheterization a few years ago, she cannot recall what institution, but there was no evidence of obstructive CAD. She has underwent a stress test in March of 2016 and that was normal. The patient has no clear PND or orthopnea. She has some peripheral edema, occasional dizziness but no syncope. Her coronary risk factors are remarkable for hypertension, hyperlipidemia, diabetes mellitus. She is a nonsmoker. MEDICATIONS: Her medications include aspirin, metformin 500 mg twice a day, omeprazole, lisinopril 10 mg daily, Lipitor 80 mg daily, Ventolin, levothyroxine, Zoloft. REVIEW OF SYSTEMS: RESPIRATORY SYSTEM: She has history of asthma and she has a dry cough that could be an MADISON inhibitor cough. GI SYSTEM: No recent GI bleeding. No peptic ulcer disease. SYSTEM: No dysuria or hematuria. NERVOUS SYSTEM: No stroke or seizure. PHYSICAL EXAMINATION: She is a 62-year-old female, morbidly obese, alert, oriented, in no apparent distress. Blood pressure 112/55 with the heart rate in the 60s. HEAD: Normocephalic. EYES: Sclerae nonicteric. NECK: Good carotid upstroke. No bruit. No jugular venous distention. LUNGS: Clear to auscultation. HEART: Regular rate and rhythm S1, S2. No S3 with systolic murmur heard at the base. No diastolic murmur. No rub. Chest wall with chest wall tenderness reproducing the pain. ABDOMEN: Soft, nontender, obese. Positive bowel sounds. EXTREMITIES: No edema. LAB DATA: Lab data revealed troponin less than 0.012 for 3 samples, cholesterol 161, LDL of 58. BUN and creatinine 17 and 0.75. Hemoglobin of 11.7. EKG revealed a sinus mechanism, normal axis and intervals. No acute changes. Chest x-ray revealed no evidence of infiltrate. IMPRESSION: 1. Chest discomfort atypical for ischemic heart disease probably noncardiac. 2. Hypertension. 3. Hyperlipidemia. 4. Diabetes mellitus. 5. Morbid obesity. 6. Cough, could be related to MADISON inhibitor. RECOMMENDATION: I would recommend to proceed with dobutamine stress echocardiogram as well as transthoracic echocardiogram. I will stop her MADISON inhibitor and switch her to an angiotensin receptor saji. Depending on the results of testing, further recommendation will be made. Thank you for this consult. We will follow with you. MMODL / IJN: [id number] /
[2018-01-23] MEDS ORDERED: ATROPINE SULFATE 0.1 MG/ML 10ML SYRINGE ONE (10:21)
[2018-01-23] MEDS: INSULIN ASPART 100 UNIT/ML 1 ML 10 ML VIAL SQ SCH ×2 (10:47→12:10)
[2018-01-23 11:58] LABS: Glucose,Whole Blood 187 mg/dL (75-99)
[2018-01-23 12:22] VITALS: RESP 18
--- NOTE | 2018-01-23 15:01 | P.DS ---
Providers Date of admission: 01/22/18 12:37 Attending physician: Dick Avilez Consults: 01/22/18 17:15 Consult Physician Routine Consulting Provider: [facility] Consult Reason/Comments: chest pain Do you want consulting provider notified?: Yes, Notify in am Primary care physician: [facility] Course: Patient is admitted for chest pain rule out acute coronary syndromes after which patient underwent stress test which is negative patient has musculoskeletal chest pain secondary to degenerative cervical spine disease with radiculopathy. Patient need to be further evaluated with outpatient neck x -rays. Patient was instructed to take [id number] nonsteroidal anti- inflammatory medications and if needed GI prophylaxis and follow with primary care physician. Patient was also having cervical cephalalgia and patient will be referred to neurology for possible cervical nerve blockade. If cleared by cardiology patient will be discharged today. PHYSICAL EXAMINATION: GENERAL: The patient is alert and oriented x3, not in any acute distress. Morbidly obese HEENT: Pupils are round and equally reacting to light. EOMI. No scleral icterus. No conjunctival pallor. Normocephalic, atraumatic. No pharyngeal erythema. No thyromegaly. CARDIOVASCULAR: S1 and S2 present. No murmurs, rubs, or gallops. PULMONARY: Chest is clear to auscultation, no wheezing or crackles. ABDOMEN: Soft, nontender, nondistended, normoactive bowel sounds. No palpable organomegaly. MUSCULOSKELETAL: No joint swelling or deformity. EXTREMITIES: No cyanosis, clubbing, or pedal edema. NEUROLOGICAL: Gross neurological examination did not reveal any focal deficits. SKIN: No rashes. For rest of the chronic medical problems and hospitalization course please refer to my HPI from yesterday Patient Condition at Discharge: Fair Plan - Discharge Summary Discharge Rx Participant: Yes New Discharge Prescriptions: New Losartan [Cozaar] 50 mg PO DAILY #30 tab Continue Aspirin 81 mg PO DAILY 30 Days chew metFORMIN HCL [Glucophage] 500 mg PO BID Multivitamins, Thera [Multivitamin (formulary)] 1 tab PO DAILY Fish Oil/Dha/Epa [Fish Oil 1,200 mg Fish Oil] 1 cap PO BID Ferrous Sulfate [Feosol] 325 mg PO BID Vitamin B Complex 1 cap PO DAILY Calcium Carbonate [Calcium] 600 mg PO DAILY Albuterol Inhaler [Ventolin Hfa Inhaler] 2 puff INHALATION RT-Q4H PRN PRN Reason: Shortness Of Breath Melatonin 5 mg PO HS PRN #30 tablet PRN Reason: sleep deprivation Sertraline [Zoloft] 100 mg PO DAILY #30 tab Albuterol Nebulized (Conc) [Ventolin Nebulized (Conc)] 2.5 mg INHALATION RT- Q6H Atorvastatin [Lipitor] 80 mg PO HS lamoTRIgine [LaMICtal] 50 mg PO HS Levothyroxine Sodium 150 mg PO DAILY Meclizine [Antivert] 25 mg PO DAILY PRN PRN Reason: Motion Sickness Omeprazole 20 mg PO DAILY Discontinued Lisinopril [Prinivil] 10 mg PO DAILY Discharge Medication List Aspirin 81 mg PO DAILY 30 Days chew 12/29/13 [Rx] Albuterol Inhaler [Ventolin Hfa Inhaler] 2 puff INHALATION RT-Q4H PRN 04/22/16 [ History] Calcium Carbonate [Calcium] 600 mg PO DAILY 04/22/16 [History] Ferrous Sulfate [Feosol] 325 mg PO BID 04/22/16 [History] Fish Oil/Dha/Epa [Fish Oil 1,200 mg Fish Oil] 1 cap PO BID 04/22/16 [History] Multivitamins, Thera [Multivitamin (formulary)] 1 tab PO DAILY 04/22/16 [History ] Vitamin B Complex 1 cap PO DAILY 04/22/16 [History] metFORMIN HCL [Glucophage] 500 mg PO BID 04/22/16 [History] Melatonin 5 mg PO HS PRN #30 tablet 06/14/16 [Rx] Sertraline [Zoloft] 100 mg PO DAILY #30 tab 06/14/16 [Rx] Albuterol Nebulized (Conc) [Ventolin Nebulized (Conc)] 2.5 mg INHALATION RT-Q6H 01/22/18 [History] Atorvastatin [Lipitor] 80 mg PO HS 01/22/18 [History] Levothyroxine Sodium 150 mg PO DAILY 01/22/18 [History] Meclizine [Antivert] 25 mg PO DAILY PRN 01/22/18 [History] Omeprazole 20 mg PO DAILY 01/22/18 [History] lamoTRIgine [LaMICtal] 50 mg PO HS 01/22/18 [History] Losartan [Cozaar] 50 mg PO DAILY #30 tab 01/23/18 [Rx] Follow up Appointment(s)/Referral(s): Gracie Medrano DO [Primary Care Provider] - 3 Days Discharge Disposition: HOME SELF-CARE
[2018-01-23 16:49] VITALS: BP 114/66; PULSE 64; TEMP 98.5
--- NOTE | 2018-01-23 18:12 | ECHOF ---
Referral Reason:cp MEASUREMENTS -------- HEIGHT: 152.4 cm WEIGHT: 157.4 kg BP: RVIDd: 3.2 cm (< 3.3) IVSd: 1.2 cm (0.6 - 1.1) LVIDd: 5.8 cm (3.9 - 5.3) LVPWd: 1.2 cm (0.6 - 1.1) IVSs: 1.6 cm LVIDs: 4.2 cm LVPWs: 1.3 cm LAESV Index (A-L): 31.87 ml/m Ao Diam: 3.0 cm (2.0 - 3.7) AV Cusp: 1.5 cm (1.5 - 2.6) LA Diam: 4.1 cm (2.7 - 3.8) MV EXCURSION: 26.161 mm (> 18.000) MV EF SLOPE: 162 mm/s (70 - 150) EPSS: 1.7 cm MV E Edmond: 0.90 m/s MV DecT: 165 ms MV A Edmond: 0.56 m/s MV E/A Ratio: 1.61 RAP: 5.00 mmHg RVSP: 34.20 mmHg FINDINGS -------- Sinus rhythm. This was a technically adequate study. Morbid Obesity The left ventricular size is normal. There is mild concentric left ventricular hypertrophy. Overa ll left ventricular systolic function is normal with, an EF between 55 - 60 %. The right ventricle is normal in size. LA is midly dilated 29-33ml/m2. The right atrial size is normal. The aortic valve is trileaflet, and appears structurally normal. No aortic stenosis or regurgitation. The mitral valve is normal. Mild mitral regurgitation is present. Mild tricuspid regurgitation present. There is no evidence of pulmonary hypertension. The right v entricular systolic pressure, as measured by Doppler, is 34.20mmHg. The pulmonic valve was not well visualized. There is no pulmonic regurgitation present. The aortic root size is normal. Echo free space represents a pericardial fat pad. CONCLUSIONS -------- 1. Sinus rhythm. 2. Morbid Obesity 3. The left ventricular size is normal. 4. There is mild concentric left ventricular hypertrophy. 5. Overall left ventricular systolic function is normal with, an EF between 55 - 60 %. 6. LA is midly dilated 29-33ml/m2. 7. The aortic valve is trileaflet, and appears structurally normal. No aortic stenosis or regurgitati on. 8. Mild mitral regurgitation is present. 9. Mild tricuspid regurgitation present. 10. There is no evidence of pulmonary hypertension. 11. The pulmonic valve was not well visualized. 12. There is no pulmonic regurgitation present. 13. The aortic root size is normal. 14. Echo free space represents a pericardial fat pad. QUILLER OPERATOR: Leslie Fernando RDCS
--- NOTE | 2018-01-23 20:26 | EST ---
EXERCISE STRESS DATE OF SERVICE: 01/23/2018 AGE: 62 SEX: Fe HT: 60" WT: 347 PROTOCOL: Dobutamine Stress Echo STAGE: IV DURATION OF EXERCISE: 16:25 HEART RATE REST: 58 BLOOD PRESSURE REST: 123/94 MAXIMUM HEART RATE ACHIEVED: 143 MAXIMUM BLOOD PRESSURE: 228/84 85% MPHR: 136 100% MPHR: 160 METS: INDICATIONS: Chest pain. RESULTS: Baseline rhythm is sinus mechanism, rate 58, normal axis and intervals. Normal electrocardiogram. Baseline blood pressure 123/94 mmHg. Patient received infusion of dobutamine per protocol. Peak rate 143 beats per minute which is equal to 89% maximum predicted heart rate. Electrocardiographic monitoring revealed no evidence of diagnostic ischemic ST deviation. Patient received 0.5 mg of atropine at peak infusion. Rare PVCs were noted. FINDINGS: Baseline echocardiogram revealed normal wall thickening motion. At peak exercise, there was normal wall motion augmentation with no hypokinesis or dyskinesis. CONCLUSION: 1. Normal electrocardiographic response to dobutamine infusion with rare PVCs. 2. Normal stress echocardiogram with no evidence of stress induced ischemia. MMODL / IJN: [id number] /
== END 2018-01-23 17:18 | disposition home or self-care (01) ==
LOC: EC 10:13 → 1SOBS 12:37
PROVIDERS: ADMIT Internal Medicine; ATTEND Internal Medicine
DX: M47.22 Other spondylosis with radiculopathy, cervical region (principal); R07.89 Other chest pain; M25.78 Osteophyte, vertebrae; R51 Headache; K21.9 Gastro-esophageal reflux disease without esophagitis; J45.909 Unspecified asthma, uncomplicated; G47.33 Obstructive sleep apnea (adult) (pediatric); E78.5 Hyperlipidemia, unspecified; E11.9 Type 2 diabetes mellitus without complications; E03.9 Hypothyroidism, unspecified; I10 Essential (primary) hypertension; Z99.89 Dependence on other enabling machines and devices; K57.90 Diverticulosis of intestine, part unspecified, without perforation or abscess without bleeding; R11.0 Nausea; D64.9 Anemia, unspecified; F31.9 Bipolar disorder, unspecified; F41.9 Anxiety disorder, unspecified; E66.01 Morbid (severe) obesity due to excess calories; Z68.44 Body mass index [BMI] 60.0-69.9, adult; F41.0 Panic disorder [episodic paroxysmal anxiety]; Z79.82 Long term (current) use of aspirin; Z79.84 Long term (current) use of oral hypoglycemic drugs; Z79.890 Hormone replacement therapy; Z79.899 Other long term (current) drug therapy; Z88.1 Allergy status to other antibiotic agents; Z88.2 Allergy status to sulfonamides; Z87.442 Personal history of urinary calculi; Z98.42 Cataract extraction status, left eye; Z98.41 Cataract extraction status, right eye; Z96.1 Presence of intraocular lens; F60.9 Personality disorder, unspecified; Z82.3 Family history of stroke; Z84.1 Family history of disorders of kidney and ureter; Z83.3 Family history of diabetes mellitus; Z80.41 Family history of malignant neoplasm of ovary; Z80.0 Family history of malignant neoplasm of digestive organs; Z83.49 Family history of other endocrine, nutritional and metabolic diseases; Z82.49 Family history of ischemic heart disease and other diseases of the circulatory system
CPT/HCPCS: 96360; 99285; 36415; 93005; 93306; 80061; 80053; 82550; 82553; 83735; 84484; 85025; 85610; 85730; 71046; G0378 ×2; C8930; J1250; J0461; Q9950; 93351

== ENCOUNTER 2019-10-10 19:04 | Inpatient (IN) | payer MEDICARE, OTHER ==
--- NOTE | 2019-10-10 19:13 | ED ---
Chest Pain HPI - General Stated Complaint: Chest pain/SOB Time Seen by Provider: 10/10/19 19:12 Source: RN notes reviewed, old records reviewed - History of Present Illness Initial Comments: This is a 62-year-old female DF for evaluation patient complaining of chest pain. History of chest pain but no prior cardiac admission or evaluation. Patient's chest pain is now currently left-sided radiating to left jaw. Patient evaluated will refer her heart, she has have significant risk for heart disease including obesity her blood pressure cholesterol. As well as diabetes, patient does have sleep apnea on CPAP chest pain is persistent or shortness of breath MD Complaint: chest pain -: days(s) Onset: during rest Pain Location: substernal, left chest Pain Radiation: none Severity: moderate Severity scale (1-10): 4 Quality: heaviness Consistency: constant Improves With: nothing Worsens With: nothing Anginal Symptoms: nausea, dyspnea, other (Headache) Other Symptoms: palpitations Treatments Prior to Arrival: none - Related Data Home Medications Medication Instructions Recorded Confirmed Fish Oil/Dha/Epa [Fish Oil 1,200 1 cap PO DAILY 04/22/16 10/10/19 mg Fish Oil] Atorvastatin [Lipitor] 80 mg PO HS 01/22/18 10/10/19 Levothyroxine Sodium 150 mcg PO DAILY 01/22/18 10/10/19 Albuterol Sulfate [Ventolin HFA] 2 puff INHALATION RT-Q4H PRN 10/10/19 10/10/19 Ibuprofen [Motrin] 800 mg PO DAILY PRN 10/10/19 10/10/19 Melatonin 10 mg PO HS PRN 10/10/19 10/10/19 Sertraline [Zoloft] 100 mg PO HS 10/10/19 10/10/19 Valsartan 80 mg PO DAILY 10/10/19 10/10/19 lamoTRIgine 100 mg PO HS 10/10/19 10/10/19 metFORMIN HCL ER [Glucophage Xr] 500 mg PO BID 10/10/19 10/10/19 Previous Rx's Medication Instructions Recorded Aspirin 81 mg PO DAILY 30 Days chew 12/29/13 Allergies Allergy/AdvReac Type Severity Reaction Status Date / Time sulfamethoxazole Allergy Unknown Rash/Hives, Verified 10/10/19 21:38 [From Bactrim] SOB trimethoprim [From Bactrim] Allergy Unknown Rash/Hives, Verified 10/10/19 21:38 SOB Review of Systems ROS Statement: Those systems with pertinent positive or pertinent negative responses have been documented in the HPI. ROS Other: All systems not noted in ROS Statement are negative. 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 Past Anesthesia/Blood Transfusion Reactions: Family History of Problems w/ Anesthesia, Motion Sickness Additional Past Anesthesia/Blood Transfusion Reaction / Comment(s): clausterphobia. pt's sister had diff breathing from anesthesia Past Psychological History: Anxiety, Depression, Panic Disorder Additional Psychological History / Comment(s): boarderline personality disorder Past Alcohol Use History: None Reported Past Drug Use History: None Reported - Past Family History Son(s) Additional Family Medical History / Comment(s): She has 2 sons with no major medical problems. Patient does not have any daughters. Mother Additional Family Medical History / Comment(s): Mother at age 80 from renal failure. Father Additional Family Medical History / Comment(s): Father at age 67 with history of [place] and stroke Brother(s) Family Medical History: Cancer Additional Family Medical History / Comment(s): She has total of 5 brothers and all had history of coronary artery disease and CABG, hypertension, hyperlipidemia, diabetes. Sister(s) Family Medical History: Cancer Additional Family Medical History / Comment(s): one sister of colon cancer, second sister had ovarian cancer General Exam General appearance: alert, in no apparent distress Head exam: Present: atraumatic, normocephalic, normal inspection Eye exam: Present: normal appearance, PERRL, EOMI. Absent: scleral icterus, conjunctival injection, periorbital swelling ENT exam: Present: normal exam, mucous membranes moist Neck exam: Present: normal inspection. Absent: tenderness, meningismus, lymphadenopathy Respiratory exam: Present: normal lung sounds bilaterally. Absent: respiratory distress, wheezes, rales, rhonchi, stridor Cardiovascular Exam: Present: regular rate, normal rhythm, normal heart sounds. Absent: systolic murmur, diastolic murmur, rubs, gallop, clicks GI/Abdominal exam: Present: soft, normal bowel sounds. Absent: distended, tenderness, guarding, rebound, rigid Extremities exam: Present: normal inspection, full ROM, normal capillary refill. Absent: tenderness, pedal edema, joint swelling, calf tenderness Back exam: Present: normal inspection Neurological exam: Present: alert, oriented X3, CN II-XII intact Psychiatric exam: Present: normal affect, normal mood Skin exam: Present: warm, dry, intact, normal color. Absent: rash Course Vital Signs 10/10/19 10/10/19 10/10/19 19:08 20:01 20:30 Temperature 98.5 F Pulse Rate 61 63 61 Pulse Rate [ Pulse Oximetery ] Respiratory 18 19 20 Rate Blood Pressure 124/67 108/57 105/56 Blood Pressure [Left Arm] O2 Sat by Pulse 96 96 99 Oximetry 10/10/19 21:00 Temperature 98.2 F Pulse Rate Pulse Rate [ 56 L Pulse Oximetery ] Respiratory 18 Rate Blood Pressure Blood Pressure 95/62 [Left Arm] O2 Sat by Pulse 98 Oximetry - Reevaluation(s) Reevaluation #1: Medical records reviewed Patient reevaluated with symptoms significantly improved Patient still having episodes of chest pain Spoke with patient regarding results, questions answered Patient feels good for discharge home - Consultations Consultation #1: Spoke with sound who agree to admit patient Chest Pain MDM - MDM 64 female admitted for chest pain observation with persistent chest pain left- sided rating to left jaw with significant cardiac risk factors Critical Care Time Critical Care Time: Yes Total Critical Care Time: 31 Disposition Clinical Impression: Atypical chest pain, Chest pain Disposition: ADMITTED IP TO THIS [facility] Condition: Undetermined Is patient prescribed a controlled substance at d/c from ED?: No
[2019-10-10 19:29] LABS: Basophils # (A) 0.1 k/uL (0-0.2); Basophils % (A) 1 %; Eosinophils # (A) 0.1 k/uL (0-0.7); Eosinophils % (A) 2 %; HGB 11.9 gm/dL (11.4-16.0); Lymphocytes # (A) 2.3 k/uL (1.0-4.8); Lymphocytes % (A) 32 %; MCH 25.4 pg (25.0-35.0); MCHC 31.2 g/dL (31.0-37.0); MCV 81.5 fL (80.0-100.0); Mean Platelet Volume 8.6; Monocytes # (A) 0.5 k/uL (0-1.0); Monocytes % (A) 6 %; Neutrophils % (A) 57 %; Platelet Count 264 k/uL (150-450); RBC 4.66 m/uL (3.80-5.40); RDW 14.4 % (11.5-15.5); WBC 7.1 k/uL (3.8-10.6)
[2019-10-10 19:38] LABS: ALT 16 U/L (4-34); AST 22 U/L (14-36); African American GFR (CKD) >90 (>60 ml/min/1.73 sqM); Albumin 3.9 g/dL (3.5-5.0); Alkaline Phosphatase 56 U/L (38-126); Anion Gap 8 mmol/L; Blood Urea Nitrogen 14 mg/dL (7-17); Carbon Dioxide 22 mmol/L (22-30); Chloride 107 mmol/L (98-107); Glucose 121 mg/dL (74-99); Magnesium 1.7 mg/dL (1.6-2.3); Non-African American GFR(CKD) >90 (>60 ml/min/1.73 sqM); Potassium 4.1 mmol/L (3.5-5.1); Sodium 137 mmol/L (137-145); Total Bilirubin 0.5 mg/dL (0.2-1.3); Total Protein 6.3 g/dL (6.3-8.2)
--- NOTE | 2019-10-10 19:54 | XR ---
EXAMINATION TYPE: XR chest 2V DATE OF EXAM: 10/10/2019 COMPARISON: 01/22/2018 HISTORY: Chest pain TECHNIQUE: FINDINGS: There is no heart failure nor confluent pneumonic infiltrate. Costophrenic angles are clear . There are chest leads. Bony thorax is intact. IMPRESSION: No active cardiopulmonary disease. No change.
[2019-10-10 20:03] LABS: Partial Thromboplastin Time 22.3 sec (22.0-30.0); Prothrombin Time 10.5 sec (9.0-12.0)
[2019-10-10] MEDS ORDERED: ASPIRIN 81 MG PO STA (20:32)
[2019-10-10] MEDS ORDERED: HEPARIN SODIUM,PORCINE 5,000 UNIT/ML 1 ML VIAL IV PRN (20:32)
[2019-10-10] MEDS ORDERED: HEPARIN SODIUM,PORCINE 5,000 UNIT/ML 1 ML VIAL IV ONE (20:32)
[2019-10-10] MEDS ORDERED: HEPARIN SOD,PORK IN 0.45% NACL 25,000 UNIT in 0.45% NACL 1 250ML.BAG IV SCH (20:45)
[2019-10-10 22:40] LABS: Glucose,Whole Blood 101 mg/dL (75-99)
[2019-10-10] MEDS ORDERED: IBUPROFEN 800 MG TAB PO PRN (22:54)
[2019-10-10] MEDS ORDERED: ALBUTEROL NEBULIZED 2.5 MG/3 ML INHALATION PRN (22:54)
[2019-10-10] MEDS: ATORVASTATIN 80 MG TAB PO SCH (23:15)
[2019-10-10] MEDS: MELATONIN 5 MG TABLET PO PRN (23:16)
[2019-10-10] MEDS: lamoTRIgine 100 MG TAB PO SCH (23:16)
[2019-10-10] MEDS: SERTRALINE 100 MG TAB PO SCH (23:16)
[2019-10-11 03:30] LABS: Mean Platelet Volume 9.4; Platelet Count 324 k/uL (150-450)
[2019-10-11 03:37] LABS: African American GFR (CKD) >90 (>60 ml/min/1.73 sqM); Anion Gap 6 mmol/L; Blood Urea Nitrogen 14 mg/dL (7-17); Calcium 8.8 mg/dL (8.4-10.2); Carbon Dioxide 24 mmol/L (22-30); Chloride 109 mmol/L (98-107); Cholesterol 124 mg/dL (<200); Glucose 120 mg/dL (74-99); HDL Cholesterol 36 mg/dL (40-60); LDL Cholesterol,Calculated 22 mg/dL (0-99); Non-African American GFR(CKD) 79 (>60 ml/min/1.73 sqM); Sodium 139 mmol/L (137-145); Triglycerides 331 mg/dL (<150)
[2019-10-11] MEDS: LEVOTHYROXINE 100 MCG TAB PO SCH (06:33)
[2019-10-11 06:34] LABS: Glucose,Whole Blood 119 mg/dL (75-99)
[2019-10-11] MEDS: INSULIN ASPART (NovoLOG) 100 UNIT/ML VIAL SQ SCH ×4 (06:44→20:13)
[2019-10-11] MEDS ORDERED: ASPIRIN 325 MG TAB PO SCH (09:00)
--- NOTE | 2019-10-11 09:01 | P.CRDCN ---
History of Present Illness Consult date: 10/11/19 Chief complaint: Chest pain History of present illness: This is a very pleasant 64-year-old female patient who was somewhat poor historian but with a past medical history significant for diabetes type 2 as well as significant family history of coronary artery disease presented to the hospital complaining of chest discomfort as well as symptoms of dizziness and lightheadedness. The patient described discomfort in the mid of the chest as a burning sensation with some radiation to the left arm without associated symptoms of sweating or syncope. Beside that she describes chronic dizziness and lightheadedness without any symptoms of heart racing or fluttering. The EKG showed sinus rhythm without any significant ST or T-wave abnormalities and the chest x-ray did not show any acute abnormalities. The blood work in terms of troponin came in to be unremarkable as well as an acute coronary event was ruled out. The patient pressure has been marginal and has been in the 90s and currently she is not on any blood pressure medications. She was seen back in 2018 with a chest discomfort and at that point she underwent an echocardiogram which came in to be unremarkable and also dobutamine stress echocardiogram which came in to be unremarkable as well. On physical examination today she does have epigastric tenderness and she stated that she has been experiencing abdominal discomfort as well. I'm going to rule out in the abdominal process at this point. Further recommendation to follow that. I'm going to obtain an ultrasound of the abdomen first and continue following up with the patient after that. An echocardiogram was performed and will follow-up on that. 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 Past Anesthesia/Blood Transfusion Reactions: Family History of Problems w/ Anesthesia, Motion Sickness Additional Past Anesthesia/Blood Transfusion Reaction / Comment(s): clausterphobia. pt's sister had diff breathing from anesthesia Past Psychological History: Anxiety, Depression, Panic Disorder Additional Psychological History / Comment(s): boarderline personality disorder Smoking Status: Never smoker Past Alcohol Use History: None Reported Past Drug Use History: None Reported - Past Family History Son(s) Additional Family Medical History / Comment(s): She has 2 sons with no major medical problems. Patient does not have any daughters. Mother Additional Family Medical History / Comment(s): Mother at age 80 from renal failure. Father Additional Family Medical History / Comment(s): Father at age 67 with history of [place] and stroke Brother(s) Family Medical History: Cancer Additional Family Medical History / Comment(s): She has total of 5 brothers and all had history of coronary artery disease and CABG, hypertension, hyperlipidemia, diabetes. Sister(s) Family Medical History: Cancer Additional Family Medical History / Comment(s): one sister of colon cancer, second sister had ovarian cancer Medications and Allergies Home Medications Medication Instructions Recorded Confirmed Type Aspirin 81 mg PO DAILY 30 Days chew 12/29/13 10/10/19 Rx Fish Oil/Dha/Epa [Fish Oil 1,200 1 cap PO DAILY 04/22/16 10/10/19 History mg Fish Oil] Atorvastatin [Lipitor] 80 mg PO HS 01/22/18 10/10/19 History Levothyroxine Sodium 150 mcg PO DAILY 01/22/18 10/10/19 History Albuterol Sulfate [Ventolin HFA] 2 puff INHALATION RT-Q4H PRN 10/10/19 10/10/19 History Ibuprofen [Motrin] 800 mg PO DAILY PRN 10/10/19 10/10/19 History Melatonin 10 mg PO HS PRN 10/10/19 10/10/19 History Sertraline [Zoloft] 100 mg PO HS 10/10/19 10/10/19 History Valsartan 80 mg PO DAILY 10/10/19 10/10/19 History lamoTRIgine 100 mg PO HS 10/10/19 10/10/19 History metFORMIN HCL ER [Glucophage Xr] 500 mg PO BID 10/10/19 10/10/19 History Allergies Allergy/AdvReac Type Severity Reaction Status Date / Time sulfamethoxazole Allergy Unknown Rash/Hives, Verified 10/10/19 21:38 [From Bactrim] SOB trimethoprim [From Bactrim] Allergy Unknown Rash/Hives, Verified 10/10/19 21:38 SOB Physical Exam Vitals: Vital Signs Temp Pulse Pulse Resp BP BP Pulse Ox 10/11/19 03:00 98 F 49 L 18 93/61 99 10/10/19 21:00 98.2 F 56 L 18 95/62 98 10/10/19 20:30 61 20 105/56 99 10/10/19 20:01 63 19 108/57 96 10/10/19 19:08 98.5 F 61 18 124/67 96 Intake and Output 10/10/19 10/11/19 10/11/19 22:59 06:59 14:59 Intake Total 900 65.346 Output Total 250 Balance 650 65.346 Intake: Intake, IV Titration 65.346 Amount Heparin Sod,Pork in 0.45% 65.346 NaCl 25,000 unit In 0.45 % NaCl 1 250ml.bag @ 6 UNITS/KG/HR 8.791 mls/hr IV .Q24H [facility] Rx#: [id number] Oral 900 0 Output: Urine 250 Other: Voiding Method Bedside Commode Bedside Commode # Voids 1 1 Weight 146.51 kg - Constitutional General appearance: no acute distress - Respiratory Respiratory: bilateral: CTA - Cardiovascular Rhythm: regular Heart sounds: normal: S1, S2 Results 10/11/19 02:58 10/11/19 02:58 Cardiac Enzymes 10/10/19 10/10/19 10/10/19 Range/Units 19:18 19:18 22:24 AST 22 (14-36) U/L Troponin I <0.012 <0.012 (0.000-0.034) ng/mL 10/11/19 Range/Units 02:58 AST (14-36) U/L Troponin I <0.012 (0.000-0.034) ng/mL Coagulation 10/10/19 10/11/19 Range/Units 19:18 02:58 PT 10.5 (9.0-12.0) sec APTT 22.3 28.0 (22.0-30.0) sec Lipids 10/11/19 Range/Units 02:58 Triglycerides 331 H (<150) mg/dL Cholesterol 124 (<200) mg/dL HDL Cholesterol 36 L (40-60) mg/dL CBC 10/10/19 10/11/19 Range/Units 19:18 02:58 WBC 7.1 (3.8-10.6) k/uL RBC 4.66 (3.80-5.40) m/uL Hgb 11.9 (11.4-16.0) gm/dL Hct 38.0 (34.0-46.0) % Plt Count 264 324 (150-450) k/uL Comprehensive Metabolic Panel 10/10/19 10/11/19 Range/Units 19:18 02:58 Sodium 137 139 (137-145) mmol/L Potassium 4.1 4.0 (3.5-5.1) mmol/L Chloride 107 109 H (98-107) mmol/L Carbon Dioxide 22 24 (22-30) mmol/L BUN 14 14 (7-17) mg/dL Creatinine 0.72 0.81 (0.52-1.04) mg/dL Glucose 121 H 120 H (74-99) mg/dL Calcium 9.0 8.8 (8.4-10.2) mg/dL AST 22 (14-36) U/L ALT 16 (4-34) U/L Alkaline Phosphatase 56 (38-126) U/L Total Protein 6.3 (6.3-8.2) g/dL Albumin 3.9 (3.5-5.0) g/dL Current Medications Generic Name Dose Route Start Last Admin Trade Name Freq PRN Reason Stop Dose Admin Albuterol Sulfate 2.5 mg 10/10/19 22:54 Ventolin Nebulized INHALATION RT-Q4H PRN Shortness Of Breath Aspirin 81 mg 10/11/19 09:00 Aspirin PO DAILY RIKY Atorvastatin Calcium 80 mg 10/10/19 21:00 10/10/19 23:15 Lipitor PO 80 mg HS RIKY Administration Heparin Sodium (Porcine) 0 unit 10/10/19 20:32 10/11/19 04:17 Heparin IV 4,000 unit Q6HR PRN Administration Low PTT Protocol Ibuprofen 800 mg 10/10/19 22:54 Motrin PO DAILY PRN Pain Insulin Aspart 0 unit 10/11/19 07:30 10/11/19 06:44 Novolog SQ Not Given ACHS [facility] Protocol Lamotrigine 100 mg 10/10/19 23:00 10/10/19 23:16 Lamictal PO 100 mg HS RIKY Administration Levothyroxine Sodium 150 mcg 10/11/19 06:30 10/11/19 06:33 Synthroid PO 150 mcg DAILY@0630 RIKY Administration Melatonin 10 mg 10/10/19 22:54 10/10/19 23:16 Melatonin PO 10 mg HS PRN Administration SLEEP Morphine Sulfate 4 mg 10/10/19 20:32 Morphine Sulfate (Inj) IV Q4HR PRN Chest Pain Nitroglycerin 0.4 mg 10/10/19 20:32 Nitrostat SUBLINGUAL Q5M PRN Chest Pain Sertraline HCl 100 mg 10/10/19 23:00 10/10/19 23:16 Zoloft PO 100 mg HS RIKY Administration Intake and Output 10/10/19 10/11/19 10/11/19 22:59 06:59 14:59 Intake Total 900 65.346 Output Total 250 Balance 650 65.346 Intake: Intake, IV Titration 65.346 Amount Heparin Sod,Pork in 0.45% 65.346 NaCl 25,000 unit In 0.45 % NaCl 1 250ml.bag @ 6 UNITS/KG/HR 8.791 mls/hr IV .Q24H [facility] Rx#: [id number] Oral 900 0 Output: Urine 250 Other: Voiding Method Bedside Commode Bedside Commode # Voids 1 1 Weight 146.51 kg 10/11/19 02:58 10/11/19 02:58 Assessment and Plan Assessment: Assessment #1 atypical chest discomfort #2 abdominal discomfort #3 dizziness and lightheadedness #4 marginally low blood pressure Plan #1 acute coronary event was ruled out #2 rule out intra-abdominal process #3 follow-up on the echocardiogram #4 follow-up after the ultrasound of the abdomen #5 further recommendation to follow that
[2019-10-11] MEDS ORDERED: FAMOTIDINE 20 MG/2 ML VIAL IV SCH (09:30)
--- NOTE | 2019-10-11 09:31 | P.HPIM ---
History of Present Illness This is a pleasant 64 years old female with past medical history of diabetes mellitus, hyperlipidemia, asthma, diabetes mellitus, GERD, hypothyroidism, obstructive sleep apnea on CPAP. She is a patient of Dr. Medrano her PCP. She huff s seen Dr. Reyes before for heart problems Patient presents with multiple problems, however the concerns for her was her chest pain. Her symptoms were for 2 days, she has left-sided chest pain, radia ting to the left arm felt like burning about 8-9/10 in severity currently 7/10, radiating to the left arm and neck and shoulder. Associated with some dizziness and lightheadedness and nausea and dyspnea. Also patient complains of some headache and neck pain, also complaining from left side abdominal pain which is more discomfort compared to her chest pain, she rated as 7/10, burning, she had a diarrhea about 2 days ago but was stopped and shows no bowel movement for the last 2 days, no urinary symptoms. She denies fever. She is diabetic and she has numbness and tingling in her both lower extremity which is worse over the last 2 days. Usually her blood pressure 1:30/80 as per patient and on admission it was 106/67 and 93/61. Patient was not eating and drinking well for the last 2 days She denies smoking, alcohol or illicit drugs Vitals stable and temperature 90.3/61. Labs including CBC, BMP, liver enzymes are negative. Serial troponins are negative. ProBNP is 171. EKG showing no rmal sinus rhythm at 64, Chest x-ray: No acute processes were radiologist. Emergency room patient received aspirin 325 mg and continue treatment N1 milligram. Also she was started on heparin drip which is a stopped now. Review of Systems CONSTITUTIONAL: No fever, no malaise, no fatigue. HEENT: No recent visual problems or hearing problems. Denied any sore throat. CARDIOVASCULAR: No orthopnea, PND, no palpitations, no syncope. PULMONARY: no cough, no hemoptysis. GASTROINTESTINAL: No diarrhea, no nausea, no vomiting, Normoactive bowel sounds. NEUROLOGICAL: no weakness, no blurred visionor speech HEMATOLOGICAL: Denies any bleeding or petechiae. GENITOURINARY: Denies any burning micturition, frequency, or urgency. MUSCULOSKELETAL/RHEUMATOLOGICAL: Denies any joint pain, swelling, ENDOCRINE: Denies any polyuria or polydipsia. 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 Past Anesthesia/Blood Transfusion Reactions: Family History of Problems w/ Anesthesia, Motion Sickness Additional Past Anesthesia/Blood Transfusion Reaction / Comment(s): clausterphobia. pt's sister had diff breathing from anesthesia Past Psychological History: Anxiety, Depression, Panic Disorder Additional Psychological History / Comment(s): boarderline personality disorder Smoking Status: Never smoker Past Alcohol Use History: None Reported Past Drug Use History: None Reported - Past Family History Son(s) Additional Family Medical History / Comment(s): She has 2 sons with no major medical problems. Patient does not have any daughters. Mother Additional Family Medical History / Comment(s): Mother at age 80 from renal failure. Father Additional Family Medical History / Comment(s): Father at age 67 with history of IN and stroke Brother(s) Family Medical History: Cancer Additional Family Medical History / Comment(s): She has total of 5 brothers and all had history of coronary artery disease and CABG, hypertension, hyperlipidemia, diabetes. Sister(s) Family Medical History: Cancer Additional Family Medical History / Comment(s): one sister of colon cancer, second sister had ovarian cancer Medications and Allergies Home Medications Medication Instructions Recorded Confirmed Type Aspirin 81 mg PO DAILY 30 Days chew 12/29/13 10/10/19 Rx Fish Oil/Dha/Epa [Fish Oil 1,200 1 cap PO DAILY 04/22/16 10/10/19 History mg Fish Oil] Atorvastatin [Lipitor] 80 mg PO HS 01/22/18 10/10/19 History Levothyroxine Sodium 150 mcg PO DAILY 01/22/18 10/10/19 History Albuterol Sulfate [Ventolin HFA] 2 puff INHALATION RT-Q4H PRN 10/10/19 10/10/19 History Ibuprofen [Motrin] 800 mg PO DAILY PRN 10/10/19 10/10/19 History Melatonin 10 mg PO HS PRN 10/10/19 10/10/19 History Sertraline [Zoloft] 100 mg PO HS 10/10/19 10/10/19 History Valsartan 80 mg PO DAILY 10/10/19 10/10/19 History lamoTRIgine 100 mg PO HS 10/10/19 10/10/19 History metFORMIN HCL ER [Glucophage Xr] 500 mg PO BID 10/10/19 10/10/19 History Allergies Allergy/AdvReac Type Severity Reaction Status Date / Time sulfamethoxazole Allergy Unknown Rash/Hives, Verified 10/10/19 21:38 [From Bactrim] SOB trimethoprim [From Bactrim] Allergy Unknown Rash/Hives, Verified 10/10/19 21:38 SOB Physical Exam Vitals: Vital Signs Temp Pulse Pulse Resp BP BP Pulse Ox 10/11/19 03:00 98 F 49 L 18 93/61 99 10/10/19 21:00 98.2 F 56 L 18 95/62 98 10/10/19 20:30 61 20 105/56 99 10/10/19 20:01 63 19 108/57 96 10/10/19 19:08 98.5 F 61 18 124/67 96 Intake and Output 10/10/19 10/11/19 10/11/19 22:59 06:59 14:59 Intake Total 900 65.346 Output Total 250 Balance 650 65.346 Intake: Intake, IV Titration 65.346 Amount Heparin Sod,Pork in 0.45% 65.346 NaCl 25,000 unit In 0.45 % NaCl 1 250ml.bag @ 6 UNITS/KG/HR 8.791 mls/hr IV .Q24H [facility] Rx#: [id number] Oral 900 0 Output: Urine 250 Other: Voiding Method Bedside Commode Bedside Commode # Voids 1 1 Weight 146.51 kg -GENERAL: The patient is alert and oriented x3, not in any acute distress morbidly obese HEENT: Pupils are round and equally reacting to light. EOMI. No scleral icterus. No conjunctival pallor. Normocephalic, atraumatic. No pharyngeal erythema. No thyromegaly. -CARDIOVASCULAR: S1 and S2 present. No murmurs, rubs, or gallops. Left-sided chest wall tenderness, some tenderness increased by elevating the hand above head PULMONARY: Chest is clear to auscultation, no wheezing or crackles. -ABDOMEN: Soft, nontender, mild left-sided abdominal discomfort, rather than tenderness. Nondistended , normoactive bowel sounds. No palpable organomegaly. MUSCULOSKELETAL: No joint swelling or deformity. EXTREMITIES: No cyanosis, clubbing, or pedal edema. NEUROLOGICAL: Gross neurological examination did not reveal any focal deficits. SKIN: No rashes. No petechiae Results CBC & Chem 7: 10/11/19 02:58 10/11/19 02:58 Labs: Abnormal Lab Results - Last 24 Hours (Table) 10/10/19 10/10/19 10/11/19 Range/Units 19:18 22:38 02:58 Chloride 109 H (98-107) mmol/L Glucose 121 H 120 H (74-99) mg/dL POC Glucose (mg/dL) 101 H (75-99) mg/dL Triglycerides 331 H (<150) mg/dL HDL Cholesterol 36 L (40-60) mg/dL 10/11/19 Range/Units 06:32 Chloride (98-107) mmol/L Glucose (74-99) mg/dL POC Glucose (mg/dL) 119 H (75-99) mg/dL Triglycerides (<150) mg/dL HDL Cholesterol (40-60) mg/dL Assessment and Plan Assessment: Atypical chest pain, with tenderness. Could be musculoskeletal. rule out cardiac causes. Hypotension, with bradycardia lightheadedness and dizziness Diabetes mellitus Diabetic neuropathy Hyperlipidemia GERD Obstructive sleep apnea on CPAP Asthma, chronic. not acute issue Morbid obesity with BMI 63 History of mood disorder on Lamictal, not an active issue Plan: This is a pleasant 65 years old female presents with multiple issues including chest pain, other abdominal symptoms, with headache and hypertension. Start the patient on normal saline. Check postural vitals. We'll do serial troponins and cardiology consults. Dressmaker Garment Fitter recommended ultrasound of the abdomen will f ollow on that. We will check TSH and Procalcitonin. Hold antihypertensive. Check hemoglobin A1c Labs and medication were reviewed.. Continue same treatment. Continue with symptomatic treatment. Resume home medication. Monitor lytes and vitals. DVT and GI prophylaxis. Further recommendations of the clinical course of the patient DVT prophylaxis: Subcutaneous heparin GI Prophylaxis: Pepcid Prognosis is guarded
[2019-10-11] MEDS: SODIUM CHLORIDE 0.9% 1,000 ML IV SCH ×2 (09:59→22:06)
[2019-10-11] MEDS: ASPIRIN 81 MG PO SCH (09:59)
--- NOTE | 2019-10-11 10:20 | ECHOF ---
Referral Reason:cp MEASUREMENTS -------- HEIGHT: 152.4 cm WEIGHT: 146.5 kg BP: 93/64 RVIDd: 3.6 cm (< 3.3) IVSd: 1.5 cm (0.6 - 1.1) LVIDd: 4.6 cm (3.9 - 5.3) LVPWd: 1.2 cm (0.6 - 1.1) EDV(Teich): 96 ml IVSs: 1.8 cm LVIDs: 3.8 cm LVPWs: 1.7 cm %IVS Thck: 22 % ESV(Teich): 60 ml EF(Teich): 37 % %FS: 18 % SV(Teich): 36 ml LA Diam: 4.0 cm (2.7 - 3.8) LALs A4C: 4.9 cm LAAs A4C: 13.8 cm LAESV A-L A4C: 33 ml LAESV MOD A4C: 32 ml LALs A2C: 5.5 cm LAAs A2C: 21.7 cm LAESV A-L A2C: 72 ml LAESV MOD A2C: 67 ml LAESV(A-L): 52 ml LAESV Index (A-L): 22.55 ml/m Ao Diam: 2.8 cm (2.0 - 3.7) AV Cusp: 1.9 cm (1.5 - 2.6) MV EXCURSION: 18.959 mm (> 18.000) MV EF SLOPE: 109 mm/s (70 - 150) EPSS: 0.4 cm MV E [place]: 0.55 m/s MV DecT: [address] [place]: 2.1 m/s MV A [place]: 0.43 m/s MV E/A Ratio: 1.28 MV PHT: 75 ms TR Vmax: 2.08 m/s TR maxP.28 mmHg RAP: 5.00 mmHg RVSP: 22.28 mmHg FINDINGS -------- Sinus rhythm. This was a technically adequate study. The left ventricular size is normal. There is mild concentric left ventricular hypertrophy. Overa ll left ventricular systolic function is low-normal with, an EF between 50 - 55 %. The right ventricle is normal in size. The left atrial size is normal. Normal LA size by volume 22+/-6 ml/m2. The right atrial size is normal. The aortic valve is trileaflet, and appears structurally normal. No aortic stenosis or regurgitation. Mild mitral regurgitation is present. Mild tricuspid regurgitation present. Right ventricular systolic pressure is normal at < 35 mmHg. There is no pulmonic regurgitation present. The aortic root size is normal. There is no pericardial effusion. CONCLUSIONS -------- 1. The left ventricular size is normal. 2. There is mild concentric left ventricular hypertrophy. 3. Overall left ventricular systolic function is low-normal with, an EF between 50 - 55 %. 4. The right ventricle is normal in size. 5. The left atrial size is normal. 6. Normal LA size by volume 22+/-6 ml/m2. 7. The right atrial size is normal. 8. Mild mitral regurgitation is present. 9. Mild tricuspid regurgitation present. INJECTION MOLD TOOLING TECHNICIAN: Leslie Fernando RDCS
--- NOTE | 2019-10-11 10:26 | US ---
EXAMINATION TYPE: US abdomen complete DATE OF EXAM: 10/11/2019 COMPARISON: CT 06/16/2013 CLINICAL HISTORY: Abdominal pain. EXAM MEASUREMENTS: Liver Length: 22.4 cm Gallbladder Wall: 0.3 cm CBD: 0.4 cm Spleen: 13.2 cm Right Kidney: 11.2 x 4.5 x 5.3 cm Left Kidney: 10.1 x 5.4 x 4.7 cm Pancreas: Normal appearance of the neck. Remainder of pancreas is obscured by bowel gas. Liver: Enlarged, echogenic. Hypoechoic area near the raymundo hepatis measuring 2.9 x 1.7 x 3.9 cm, wi th no internal color Doppler flow. Seen on image 10, there is an 8 mm isoechoic focus with hypoechoic rim which may represent portal venous structure versus mass. Gallbladder: No cholelithiasis, gallbladder wall thickening, or pericholecystic edema. Development Disability Specialist reports negative sonographic Montiel sign. Biliary system: Mild intrahepatic biliary ductal dilatation. Common bile duct normal. Spleen: Upper limits of normal for size. Right Kidney: Normal. Left Kidney: Normal. Upper IVC: Normal. Abd Aorta: Limited visualized due to overlying bowel gas. Normal caliber of the proximal portion. IMPRESSION: Fatty enlarged liver with mild intrahepatic biliary ductal dilatation. A 3.9 cm hypodense lesion near the raymundo hepatis may represent focal fatty sparing versus mass lesion. Additional 8 mm questionable liver lesion versus oblique portovenous structure. Recommend follow-up MRI liver/MRCP with and witho ut contrast.
[2019-10-11 11:55] LABS: Glucose,Whole Blood 109 mg/dL (75-99)
[2019-10-11] MEDS: NITROGLYCERIN SL TABS 0.4 MG TAB SUBLINGUAL PRN ×3 (13:32→13:46)
[2019-10-11] MEDS: MORPHINE SULFATE 4 MG/ML SYRINGE IV PRN ×2 (14:34→18:36)
[2019-10-11 16:52] LABS: Glucose,Whole Blood 130 mg/dL (75-99)
--- NOTE | 2019-10-11 17:41 | US ---
EXAMINATION TYPE: US carotid duplex BILAT DATE OF EXAM: 10/11/2019 COMPARISON: NONE CLINICAL HISTORY: dizziness. no h/o stroke EXAM MEASUREMENTS: RIGHT: Peak Systolic Velocity (PSV) cm/sec ----- Right CCA: 61.0 ----- Right ICA: 89.7 ----- Right ECA: 128.5 ICA/CCA ratio: 1.5 RIGHT: End Diastole cm/sec ----- Right CCA: 13.0 ----- Right ICA: 24.8 ----- Right ECA: 0.0 LEFT: Peak Systolic Velocity (PSV) cm/sec ----- Left CCA: 93.0 ----- Left ICA: 93.6 ----- Left ECA: 127.0 ICA/CCA ratio: 1.0 LEFT: End Diastole cm/sec ----- Left CCA: 16.0 ----- Left ICA: 25.0 ----- Left ECA: 7.4 VERTEBRALS (direction of flow): Right Vertebral: Antegrade Left Vertebral: Antegrade Rhythm: Normal Mild heterogeneous plaque with no significant stenosis IMPRESSION: There is antegrade flow in the vertebral arteries. Images and measurements show estimated 35% stenosis in both internal carotid arteries. Criteria for Assigning % of Stenosis / Diameter reduction (Estimation based on the indirect measurements of the internal carotid artery velocities (ICA PSV). 1. Normal (no stenosis)=ICA PSV < 125 cm/s: ratio < 2.0: ICA EDV<40 cm/s. 2. Less than 50% stenosis=ICA PSV < 125 cm/s: ratio < 2.0: ICA EDV<40 cm/s. 3. 50 to 69% stenosis=ICA PSV of 125 to 230 cm/s: ration 2.0 ? 4.0: ICA EDV 40-100 cm/s. 4. Greater than 70% stenosis to near occlusion= ICA PSV > 230 cm/s: ratio > 4.0: ICA EDV > 100 cm/s. 5. Near occlusion= ICA PSV velocities may be low or undetectable: variable ratio and ICA EDV. 6. Total occlusion=unable to detect flow.
[2019-10-11 19:57] LABS: Glucose,Whole Blood 128 mg/dL (75-99)
[2019-10-11] MEDS: MELATONIN 5 MG TABLET PO PRN (20:15)
[2019-10-11] MEDS: ATORVASTATIN 80 MG TAB PO SCH (20:15)
[2019-10-11] MEDS: HEPARIN SODIUM,PORCINE 5,000 UNIT/ML 1 ML VIAL SQ SCH (20:15)
[2019-10-11] MEDS: SERTRALINE 100 MG TAB PO SCH (20:15)
[2019-10-11] MEDS: FAMOTIDINE 20 MG TAB PO SCH (20:15)
[2019-10-11] MEDS: lamoTRIgine 100 MG TAB PO SCH (20:17)
[2019-10-12] MEDS: MORPHINE SULFATE 4 MG/ML SYRINGE IV PRN (04:16)
[2019-10-12 06:33] LABS: Basophils # (A) 0.1 k/uL (0-0.2); Basophils % (A) 1 %; Eosinophils # (A) 0.1 k/uL (0-0.7); Eosinophils % (A) 2 %; HCT 35.8 % (34.0-46.0); Hypochromasia Slight; Lymphocytes # (A) 2.1 k/uL (1.0-4.8); Lymphocytes % (A) 33 %; MCH 25.8 pg (25.0-35.0); MCHC 30.7 g/dL (31.0-37.0); Mean Platelet Volume 8.7; Monocytes # (A) 0.4 k/uL (0-1.0); Monocytes % (A) 6 %; Neutrophils # (A) 3.6 k/uL (1.3-7.7); Neutrophils % (A) 56 %; Platelet Count 213 k/uL (150-450); RBC 4.26 m/uL (3.80-5.40); RDW 14.7 % (11.5-15.5); WBC 6.4 k/uL (3.8-10.6)
[2019-10-12 06:46] LABS: Glucose,Whole Blood 114 mg/dL (75-99)
[2019-10-12 06:46] LABS: Bilirubin, Delta 0.2 mg/dL (0.0-0.2); Bilirubin,Unconjugated 0.2 mg/dL (0.0-1.1); Calcium 8.1 mg/dL (8.4-10.2); Magnesium 1.6 mg/dL (1.6-2.3); Potassium 4.1 mmol/L (3.5-5.1); Total Bilirubin 0.4 mg/dL (0.2-1.3); Total Protein 5.2 g/dL (6.3-8.2)
[2019-10-12] MEDS: SODIUM CHLORIDE 0.9% 1,000 ML IV SCH ×3 (06:55→15:08)
[2019-10-12] MEDS: LEVOTHYROXINE 100 MCG TAB PO SCH (06:56)
[2019-10-12] MEDS: INSULIN ASPART (NovoLOG) 100 UNIT/ML VIAL SQ SCH ×4 (06:58→20:20)
[2019-10-12] MEDS ORDERED: HYDROmorphone 0.5 MG/0.5 ML SYRINGE IVP STA (08:44)
--- NOTE | 2019-10-12 08:51 | P.PN ---
Subjective This is a pleasant 64 years old female with past medical history of diabetes mellitus, hyperlipidemia, asthma, diabetes mellitus, GERD, hypothyroidism, obstructive sleep apnea on CPAP. She is a patient of Dr. Medrano her PCP. She has seen Dr. Reyes before for heart problems Patient presents with multiple problems, however the concerns for her was her chest pain. Her symptoms were for 2 days, she has left-sided chest pain, radiating to the left arm felt like burning about 8-9/10 in severity currently 7/10, radiating to the left arm and neck and shoulder. Associated with some dizziness and lightheadedness and nausea and dyspnea. Also patient complains of some headache and neck pain, also complaining from left side abdominal pain which is more discomfort compared to her chest pain, she rated as 7/10, burning, she had a diarrhea about 2 days ago but was stopped and shows no bowel movement for the last 2 days, no urinary symptoms. She d enies fever. She is diabetic and she has numbness and tingling in her both lower extremity which is worse over the last 2 days. Usually her blood pressure 1:30/80 as per patient and on admission it was 106/67 and 93/61. Patient was not eating and drinking well for the last 2 days She denies smoking, alcohol or illicit drugs Vitals stable and temperature 90.3/61. Labs including CBC, BMP, liver enzymes are negative. Serial troponins are negative. ProBNP is 171. EKG showing normal sinus rhythm at 64, Chest x-ray: No acute processes were radiologist. Emergency room patient received aspirin 325 mg and continue treatment N1 milligram. Also she was started on heparin drip which is a stopped now. 10/12/2019 Patient still complain of from significant pain radiating to the left shoulder also she complains significantly from dizziness especially if she turns her head to the left side, she has neck pain and tenderness with children tenderness. She doesn't have much of abdominal pain or nausea vomiting. No diarrhea or dysuria. Baseline blood pressure 2 years ago was 129/71. Orthostasis vitals checked yesterday postoperative was negative CBC, BMP, liver function test, magnesium and phosphorus are all unremarkable site sugar control. Abdominal ultrasound yesterday showed possible liver mass with 8 mm liver lesion and MRCP with and without contrast is recommended by radiologist and we will order this test. Also will check Neck x-ray. Cardiology on the case. Neurologist surfaces also consulted for her dizziness and neck pain. He was given A1c is 7% and echo showed ejection fraction of 50-55%. We will increase her pain medication to Dilaudid. Continue with aspirin 81 mg and we will lower her normal saline 200 mL per hour. Review of Systems CONSTITUTIONAL: No fever, no malaise, no fatigue. HEENT: No recent visual problems or hearing problems. Denied any sore throat. CARDIOVASCULAR: No orthopnea, PND, no palpitations, no syncope. PULMONARY: no cough, no hemoptysis. GASTROINTESTINAL: No diarrhea, no nausea, no vomiting, Normoactive bowel sounds. NEUROLOGICAL: no weakness, no blurred visionor speech HEMATOLOGICAL: Denies any bleeding or petechiae. GENITOURINARY: Denies any burning micturition, frequency, or urgency. MUSCULOSKELETAL/RHEUMATOLOGICAL: Denies any joint pain, swelling, ENDOCRINE: Denies any polyuria or polydipsia. Active Medications Generic Name Dose Route Start Last Admin Trade Name Freq PRN Reason Stop Dose Admin Albuterol Sulfate 2.5 mg 10/10/19 22:54 Ventolin Nebulized INHALATION RT-Q4H PRN Shortness Of Breath Aspirin 81 mg 10/11/19 09:00 10/11/19 09:59 Aspirin PO 81 mg DAILY RIKY Administration Atorvastatin Calcium 80 mg 10/10/19 21:00 10/11/19 20:15 Lipitor PO 80 mg HS RIKY Administration Famotidine 20 mg 10/11/19 21:00 10/11/19 20:15 Pepcid PO 20 mg Q12HR RIKY Administration Heparin Sodium (Porcine) 5,000 unit 10/11/19 21:00 10/11/19 20:15 Heparin SQ 5,000 unit Q12HR RIKY Administration Hydromorphone HCl 0.5 mg 10/12/19 08:44 Dilaudid IVP Q3HR PRN Pain Sodium Chloride 1,000 mls @ 100 mls/hr 10/11/19 09:30 10/12/19 06:55 Saline 0.9% IV 130 mls/hr .Q10H RIKY Administration Ibuprofen 800 mg 10/10/19 22:54 Motrin PO DAILY PRN Pain Insulin Aspart 0 unit 10/11/19 07:30 10/12/19 06:58 Novolog SQ Not Given ACHS RIKY Protocol Lamotrigine 100 mg 10/10/19 23:00 10/11/19 20:17 Lamictal PO 100 mg HS RIKY Administration Levothyroxine Sodium 150 mcg 10/11/19 06:30 10/12/19 06:56 Synthroid PO 150 mcg DAILY@0630 RIKY Administration Melatonin 10 mg 10/10/19 22:54 10/11/19 20:15 Melatonin PO 10 mg HS PRN Administration SLEEP Nitroglycerin 0.4 mg 10/10/19 20:32 10/11/19 13:46 Nitrostat SUBLINGUAL 0.4 mg Q5M PRN Administration Chest Pain Sertraline HCl 100 mg 10/10/19 23:00 10/11/19 20:15 Zoloft PO 100 mg HS RIKY Administration Objective - Vital Signs Vital signs: Vital Signs Temp 98 F 10/12/19 08:06 Pulse 58 L 10/12/19 08:06 Resp 18 10/12/19 08:06 BP 119/66 10/12/19 08:06 Pulse Ox 96 10/12/19 08:06 Intake & Output 10/11/19 10/12/19 10/12/19 18:59 06:59 18:59 Intake Total 862.414 450 Output Total 400 Balance 462.414 450 Intake: Intake, IV Titration 322.414 Amount Heparin Sod,Pork in 0.45% 62.414 NaCl 25,000 unit In 0.45 % NaCl 1 250ml.bag @ 6 UNITS/KG/HR 8.791 mls/hr IV .Q24H [facility] Rx#: [id number] Sodium Chloride 0.9% 1, 260 000 ml @ 130 mls/hr IV . Q7H42M [facility] Rx#:[id number] Oral 540 450 Output: Urine 400 Other: Voiding Method Bedside Commode Bedside Commode # Voids 2 - Exam GENERAL: The patient is alert and oriented x3, not in any acute distress. Obese HEENT: Pupils are round and equally reacting to light. EOMI. No scleral icterus. No conjunctival pallor. Normocephalic, atraumatic. No pharyngeal erythema. No thyromegaly. CARDIOVASCULAR: S1 and S2 present. No murmurs, rubs, or gallops. -PULMONARY: Chest is clear to auscultation, no wheezing or crackles. Chest wall tenderness on the left side ABDOMEN: Soft, nontender, nondistended, normoactive bowel sounds. No palpable organomegaly. -MUSCULOSKELETAL: No joint swelling or deformity. Chest wall tenderness, neck tenderness EXTREMITIES: No cyanosis, clubbing, or pedal edema. NEUROLOGICAL: Gross neurological examination did not reveal any focal deficits. SKIN: No rashes. no petechiae. - Labs CBC & Chem 7: 10/12/19 06:20 10/12/19 06:20 Labs: Abnormal Lab Results - Last 24 Hours (Table) 10/11/19 10/11/19 10/11/19 Range/Units 02:58 11:54 16:50 Hgb (11.4-16.0) gm/dL MCHC (31.0-37.0) g/dL Chloride (98-107) mmol/L Glucose (74-99) mg/dL POC Glucose (mg/dL) 109 H 130 H (75-99) mg/dL Hemoglobin A1c 7.0 H (4.0-6.0) % Calcium (8.4-10.2) mg/dL Total Protein (6.3-8.2) g/dL Albumin (3.5-5.0) g/dL 10/11/19 10/12/19 10/12/19 Range/Units 19:56 06:20 06:20 Hgb 11.0 L (11.4-16.0) gm/dL MCHC 30.7 L (31.0-37.0) g/dL Chloride 111 H (98-107) mmol/L Glucose 115 H (74-99) mg/dL POC Glucose (mg/dL) 128 H (75-99) mg/dL Hemoglobin A1c (4.0-6.0) % Calcium 8.1 L (8.4-10.2) mg/dL Total Protein 5.2 L (6.3-8.2) g/dL Albumin 3.0 L (3.5-5.0) g/dL 10/12/19 Range/Units 06:45 Hgb (11.4-16.0) gm/dL MCHC (31.0-37.0) g/dL Chloride (98-107) mmol/L Glucose (74-99) mg/dL POC Glucose (mg/dL) 114 H (75-99) mg/dL Hemoglobin A1c (4.0-6.0) % Calcium (8.4-10.2) mg/dL Total Protein (6.3-8.2) g/dL Albumin (3.5-5.0) g/dL Assessment and Plan Assessment: Atypical chest pain, with tenderness. Could be musculoskeletal. rule out cardiac causes. Hypotension, with bradycardia , improving lightheadedness and dizziness. Associated with neck tenderness Possible liver mass with 8 mm liver lesion Diabetes mellitus Diabetic neuropathy Hyperlipidemia GERD Obstructive sleep apnea on CPAP Asthma, chronic. not acute issue Morbid obesity with BMI 63 History of mood disorder on Lamictal, not an active issue Plan: This is a pleasant 65 years old female presents with multiple issues including chest pain, other abdominal symptoms, with headache and hypertension. Start the patient on normal saline. Check postural vitals. We'll do serial troponins and cardiology consults. Network Control Operators Supervisor recommended ultrasound of the abdomen will follow on that. Check liver MRCP with and without contrast, neck x-ray. Labs and medication were reviewed.. Continue same treatment. Continue with symptomatic treatment. Resume home medication. Monitor lytes and vitals. DVT and GI prophylaxis. Further recommendations of the clinical course of the patient DVT prophylaxis: Subcutaneous heparin GI Prophylaxis: Pepcid Prognosis is guarded
[2019-10-12] MEDS: FAMOTIDINE 20 MG TAB PO SCH ×2 (09:07→20:14)
[2019-10-12] MEDS: ASPIRIN 81 MG PO SCH (09:07)
[2019-10-12] MEDS: HEPARIN SODIUM,PORCINE 5,000 UNIT/ML 1 ML VIAL SQ SCH ×2 (09:07→20:13)
--- NOTE | 2019-10-12 09:39 | XR ---
EXAMINATION TYPE: XR cervical spine comp DATE OF EXAM: 10/12/2019 COMPARISON: NONE HISTORY: Pain TECHNIQUE: Four views are submitted. FINDINGS: Calcification soft tissue the neck likely related to carotid artery. Exam limited by positioning. Ali gnment is only demonstrated to the level of C7. There is a slight anterolisthesis of C4 on C5. Multil evel degenerative disc disease most marked at C5-6 and C6-C7. Suspect bilateral foraminal encroachmen t. IMPRESSION: 1. Multilevel moderate to severe degenerative disc disease with suspected foraminal encroachment isidra mmend follow-up MRI.
--- NOTE | 2019-10-12 10:07 | P.PN ---
Subjective Progress Note Date: 10/12/19 Principal diagnosis: Chest pain This is a very pleasant 64-year-old female patient who was somewhat poor historian but with a past medical history significant for diabetes type 2 as well as significant family history of coronary artery disease presented to the hospital complaining of chest discomfort as well as symptoms of dizziness and lightheadedness. The patient described discomfort in the mid of the chest as a burning sensation with some radiation to the left arm without associated symptoms of sweating or syncope. Beside that she describes chronic dizziness and lightheadedness without any symptoms of heart racing or fluttering. The EKG showed sinus rhythm without any significant ST or T-wave abnormalities and the chest x-ray did not show any acute abnormalities. The blood work in terms of troponin came in to be unremarkable as well as an acute coronary event was ruled out. The patient was seen today October [id number]. She continues to have a chest discomfort described about 6/10 in intensity. After they ordered an ultrasound of the abdomen which revealed multiple liver masses and currently is in process of having an ERCP. At this point I would wait any further invasive cardiac approach until we have further ratification about the etiology of the liver mass and rule out any cancer or so. Meanwhile she underwent an echocardiogram which revealed normal left ventricular systolic function Objective - Vital Signs Vital signs: Vital Signs Temp 98 F 10/12/19 08:06 Pulse 58 L 10/12/19 08:06 Resp 18 10/12/19 08:06 BP 119/66 10/12/19 08:06 Pulse Ox 96 10/12/19 08:06 Intake & Output 10/11/19 10/12/19 10/12/19 18:59 06:59 18:59 Intake Total 862.414 450 Output Total 400 Balance 462.414 450 Intake: Intake, IV Titration 322.414 Amount Heparin Sod,Pork in 0.45% 62.414 NaCl 25,000 unit In 0.45 % NaCl 1 250ml.bag @ 6 UNITS/KG/HR 8.791 mls/hr IV .Q24H RIKY Rx#: [id number] Sodium Chloride 0.9% 1, 260 000 ml @ 130 mls/hr IV . Q7H42M RIKY Rx#:[id number] Oral 540 450 Output: Urine 400 Other: Voiding Method Bedside Commode Bedside Commode # Voids 2 - Constitutional General appearance: Present: no acute distress - Respiratory Respiratory: bilateral: CTA - Cardiovascular Rhythm: regular - Labs CBC & Chem 7: 10/12/19 06:20 10/12/19 06:20 Labs: Abnormal Lab Results - Last 24 Hours (Table) 10/11/19 10/11/19 10/11/19 Range/Units 02:58 11:54 16:50 Hgb (11.4-16.0) gm/dL MCHC (31.0-37.0) g/dL Chloride (98-107) mmol/L Glucose (74-99) mg/dL POC Glucose (mg/dL) 109 H 130 H (75-99) mg/dL Hemoglobin A1c 7.0 H (4.0-6.0) % Calcium (8.4-10.2) mg/dL Total Protein (6.3-8.2) g/dL Albumin (3.5-5.0) g/dL 10/11/19 10/12/19 10/12/19 Range/Units 19:56 06:20 06:20 Hgb 11.0 L (11.4-16.0) gm/dL MCHC 30.7 L (31.0-37.0) g/dL Chloride 111 H (98-107) mmol/L Glucose 115 H (74-99) mg/dL POC Glucose (mg/dL) 128 H (75-99) mg/dL Hemoglobin A1c (4.0-6.0) % Calcium 8.1 L (8.4-10.2) mg/dL Total Protein 5.2 L (6.3-8.2) g/dL Albumin 3.0 L (3.5-5.0) g/dL 10/12/19 Range/Units 06:45 Hgb (11.4-16.0) gm/dL MCHC (31.0-37.0) g/dL Chloride (98-107) mmol/L Glucose (74-99) mg/dL POC Glucose (mg/dL) 114 H (75-99) mg/dL Hemoglobin A1c (4.0-6.0) % Calcium (8.4-10.2) mg/dL Total Protein (6.3-8.2) g/dL Albumin (3.5-5.0) g/dL Assessment and Plan Assessment: Assessment #1 atypical chest discomfort #2 abdominal discomfort #3 dizziness and lightheadedness #4 marginally low blood pressure Plan #1 acute coronary event was ruled out #2 2-D echo revealed normal only function #3 further recommendation to follow
[2019-10-12 12:12] LABS: Glucose,Whole Blood 119 mg/dL (75-99)
--- NOTE | 2019-10-12 12:25 | P.CNNES ---
History of Present Illness Consult date: 10/12/19 Requesting physician: Alan E Sheet Reason for Consult: Dizziness especially if turned to left. Eye floaters. History of Present Illness: Patient is a 64-year-old female came to the hospital for dizziness and lightheadedness and some chest discomfort. Patient states that for the couple days she was having chest pain, pain going down the left arm, neck, shoulder, dizziness, fatigue, lightheaded, short of breath, stomach pain, discomfort, floaters in her eyes. Patient states that she has dizziness all the time, but when she turns to the left side, the vertigo gets worse. Also when she sits up, then she has dizziness as if everything is spinning. Patient states that she had 2 different episodes of vertigo in the past, about 2-3 years ago. With vertigo everything will spin. She used Dramamine the first time. The second time it happened, she was given meclizine and Flonase. Patient denies any focal symptoms otherwise. Patient denies any tinnitus, pain in the ears, loss of hearing, pops or infection in the ears. Patient underwent 2-D echo showed normal left ventricle size. Mild concentric LVH. EF is 50-55%. Normal left atrial size. Mild MR. Chest x-ray showed no acute cardiopulmonary disease. EKG with normal sinus rhythm. Carotid Doppler showed antegrade flow in both vertebral arteries. Estimated 35% stenosis in both ICAs. X-ray of the cervical spine showed multilevel moderate to severe degenerative disc disease with suspected foraminal encroachment. CBC, chem 7 normal. Hepatic panel normal. Hemoglobin A1c 7.0 on 10/11/2019. Total cholesterol 124, LDL 22, HDL 36 and triglycerides 331. TSH is normal. UA showed large amount of leukocyte Estrace. 27 WBCs. Rare bacteria. Patient's last computed tomography scan of the head is from 06/01/2016 which revealed no acute intracranial process. Patient has diabetes for last 10 years. She has low blood pressure. Never smoked. Patient also has sleep apnea. She uses CPAP machine. However lately use of CPAP makes her dizzy and feels as if she is stopping breathing. She has previous history of Kelly's palsy. Patient then spent great deal about her family history of coronary artery disease and strokes. Patient's dad had carotid artery disease stroke and AR. Mother had a brain aneurysm, which required surgery. She of renal failure later on. All 5 brothers had coronary artery disease and bypass surgeries. One sister had 100% blocked carotid artery on one side. Review of Systems As mentioned above in detail. Patient states that she walks with a cane or a walker. She is a fall risk. She is morbidly obese. Denies any focal symptoms otherwise. Past Medical History Past Medical History: Asthma, Chest Pain / Angina, Diabetes Mellitus, G ERD/Reflux, Hyperlipidemia, Sleep Apnea/CPAP/BIPAP, Thyroid Disorder Additional Past Medical History / Comment(s): freddy-not using her cpap machine, anemia, chest pain "from anxiety", sometimes low BP, occ palpitations, diverticulosis, kidney stone, "leaky heart valve".fall in broke rib on rt side, 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 Past Anesthesia/Blood Transfusion Reactions: Family History of Problems w/ Anesthesia, Motion Sickness Additional Past Anesthesia/Blood Transfusion Reaction / Comment(s): clausterphobia. pt's sister had diff breathing from anesthesia Past Psychological History: Anxiety, Depression, Panic Disorder Additional Psychological History / Comment(s): boarderline personality disorder Smoking Status: Never smoker Past Alcohol Use History: None Reported Past Drug Use History: None Reported - Past Family History Son(s) Additional Family Medical History / Comment(s): She has 2 sons with no major medical problems. Patient does not have any daughters. Mother Additional Family Medical History / Comment(s): Mother at age 80 from renal failure. Father Additional Family Medical History / Comment(s): Father at age 67 with history of AR and stroke Brother(s) Family Medical History: Cancer Additional Family Medical History / Comment(s): She has total of 5 brothers and all had history of coronary artery disease and CABG, hypertension, hyperlipidemia, diabetes. Sister(s) Family Medical History: Cancer Additional Family Medical History / Comment(s): one sister of colon cancer, second sister had ovarian cancer Medications and Allergies Home Medications Medication Instructions Recorded Confirmed Type Aspirin 81 mg PO DAILY 30 Days chew 12/29/13 10/10/19 Rx Fish Oil/Dha/Epa [Fish Oil 1,200 1 cap PO DAILY 04/22/16 10/10/19 History mg Fish Oil] Atorvastatin [Lipitor] 80 mg PO HS 01/22/18 10/10/19 History Levothyroxine Sodium 150 mcg PO DAILY 01/22/18 10/10/19 History Albuterol Sulfate [Ventolin HFA] 2 puff INHALATION RT-Q4H PRN 10/10/19 10/10/19 History Ibuprofen [Motrin] 800 mg PO DAILY PRN 10/10/19 10/10/19 History Melatonin 10 mg PO HS PRN 10/10/19 10/10/19 History Sertraline [Zoloft] 100 mg PO HS 10/10/19 10/10/19 History Valsartan 80 mg PO DAILY 10/10/19 10/10/19 History lamoTRIgine 100 mg PO HS 10/10/19 10/10/19 History metFORMIN HCL ER [Glucophage Xr] 500 mg PO BID 10/10/19 10/10/19 History Allergies Allergy/AdvReac Type Severity Reaction Status Date / Time sulfamethoxazole Allergy Unknown Rash/Hives, Verified 10/10/19 21:38 [From Bactrim] SOB trimethoprim [From Bactrim] Allergy Unknown Rash/Hives, Verified 10/10/19 21:38 SOB Physical Examination - Vital Signs Vital Signs: Vital Signs Temp Pulse Pulse Pulse Pulse Resp BP 10/12/19 08:06 98 F 58 L 18 10/12/19 03:00 98.6 F 54 L 18 10/11/19 21:00 97.8 F 62 18 10/11/19 15:15 10/11/19 15:00 97.9 F 59 L 16 10/11/19 13:00 60 61 49 L 130/79 BP BP BP Pulse Ox 10/12/19 08:06 119/66 96 10/12/19 03:00 108/63 97 10/11/19 21:00 90/42 94 L 10/11/19 15:15 98 10/11/19 15:00 118/65 95 10/11/19 13:00 148/88 114/57 Intake and Output 10/11/19 10/12/19 10/12/19 22:59 06:59 14:59 Intake Total 450 0 Balance 450 0 Intake: Oral 450 0 Other: Voiding Method Bedside Commode Bedside Commode # Voids 1 2 On examination patient is a late middle aged female, in no acute distress. She is alert and awake fully oriented to time place and person. Speech and language functions are normal. Attention and concentration fund of knowledge is adequate. On cranial examination pupils are round and reactive to light, visual eid are full on confrontation. Extraocular muscles are intact with no nystagmus. Face is symmetric, tongue protrudes the midline. Palatal elevation and sensation normal. Hearing and shoulder shrug normal. On muscle strength testing there is no pronator drift and the strength is normal in arms and legs distally and proximally. Reflexes are 2+ all over and plantars downgoing. Sensory to touch is equal with no neglect on double simultaneous simulation. No ataxia for [id number] testing. Tone and bulk of muscles normal. Gait deferred. Patient has clear chest, abdomen soft nontender. No obvious bruit, S1 and S2 audible. No peripheral edema. Results - Laboratory Findings CBC and BMP: 10/12/19 06:20 10/12/19 06:20 Abnormal Lab Findings: Abnormal Labs 10/10/19 10/10/19 10/11/19 19:18 22:38 02:58 Hgb MCHC Chloride 109 H Glucose 121 H 120 H POC Glucose (mg/dL) 101 H Hemoglobin A1c Calcium Total Protein Albumin Triglycerides 331 H HDL Cholesterol 36 L 10/11/19 10/11/19 10/11/19 02:58 06:32 11:54 Hgb MCHC Chloride Glucose POC Glucose (mg/dL) 119 H 109 H Hemoglobin A1c 7.0 H Calcium Total Protein Albumin Triglycerides HDL Cholesterol 10/11/19 10/11/19 10/12/19 16:50 19:56 06:20 Hgb 11.0 L MCHC 30.7 L Chloride Glucose POC Glucose (mg/dL) 130 H 128 H Hemoglobin A1c Calcium Total Protein Albumin Triglycerides HDL Cholesterol 10/12/19 10/12/19 06:20 06:45 Hgb MCHC Chloride 111 H Glucose 115 H POC Glucose (mg/dL) 114 H Hemoglobin A1c Calcium 8.1 L Total Protein 5.2 L Albumin 3.0 L Triglycerides HDL Cholesterol Assessment and Plan Assessment: * Vertigo, probable due to peripheral vestibular dysfunction. Patient had 2 different episodes of vertigo in the past. Symptoms suggestive of benign positional peripheral vertigo (BPPV), as her symptoms mainly occur when turning to the left or getting up. * Diabetes, controlled * Dyslipidemia * Obesity * Chest pain, cardiology on board. * Family history of coronary artery and cerebrovascular disease. Plan: * Computed tomography scan of head to rule out any structural abnormality. CTA of the head to rule out vertebrobasilar insufficiency, or cerebral aneurysm. * Patient had a normal carotid Doppler and 2-D echo. * We will check B12, folate level. * Continue meclizine. * Continue aspirin 81 mg, Lipitor. May decrease the dose of Lipitor to 40 mg, as her total cholesterol is 124 and LDL is 22. Patient does have high triglycerides 331 and low HDL 36. * If all above test comes back negative, and her symptoms persist, then consider vestibular rehabilitation.
--- NOTE | 2019-10-12 14:30 | CT ---
EXAMINATION TYPE: CT angio head DATE OF EXAM: 10/12/2019 HISTORY: Vertigo COMPARISON: CT brain 06/01/2016 CT DLP: 1361.8 mGycm. Automated Exposure Control for Dose Reduction was Utilized. TECHNIQUE: CTA scan of the head is performed without and with IV Contrast, patient injected with 100 mL of Isovue 370, axial images are obtained, coronal and sagittal reformatted images are reviewed. T hree-D reconstructed images are created on an independent workstation and reviewed. Source images ar e reviewed. FINDINGS: There is no acute intracranial hemorrhage, midline shift, or mass effect identified. Brain parenchyma appears normal. The ventricles, sulci, and cisterns are normal in size and configuration. No extra-a xial fluid collection. Bones and extracranial soft tissues are intact. The globes are grossly symmetr ic. Visualized sinuses and mastoid air cells are clear. Cervical of Valentine: Vertebral basilar system appears normal. Posterior cerebral vasculature is unrema rkable. Internal carotid arteries bifurcate normally into A1 and M1 segments. A2 segments are normal. The anterior communicating artery is patent. Left Posterior communicating artery is patent. Right po sterior communicating artery is patent. IMPRESSION: 1. No intracranial hemorrhage, midline shift shift, or mass effect. 2. Negative CTA of the head.
[2019-10-12] MEDS: HYDROmorphone 0.5 MG/0.5 ML SYRINGE IVP PRN ×2 (15:05→20:14)
[2019-10-12 16:52] LABS: Glucose,Whole Blood 162 mg/dL (75-99)
[2019-10-12 18:16] LABS: Folate, Serum 7.6 ng/mL
[2019-10-12] MEDS: MELATONIN 5 MG TABLET PO PRN (20:14)
[2019-10-12] MEDS: SERTRALINE 100 MG TAB PO SCH (20:15)
[2019-10-12] MEDS: ATORVASTATIN 80 MG TAB PO SCH (20:15)
[2019-10-12] MEDS: lamoTRIgine 100 MG TAB PO SCH (20:19)
[2019-10-12 20:20] LABS: Glucose,Whole Blood 104 mg/dL (75-99)
[2019-10-13] MEDS: LIDOCAINE 5% PATCH TOPICAL SCH ×2 (02:18→19:53)
[2019-10-13] MEDS: HYDROmorphone 0.5 MG/0.5 ML SYRINGE IVP PRN ×4 (02:23→22:38)
[2019-10-13] MEDS: INSULIN ASPART (NovoLOG) 100 UNIT/ML VIAL SQ SCH ×4 (05:35→19:52)
[2019-10-13 06:17] LABS: Glucose,Whole Blood 123 mg/dL (75-99)
[2019-10-13] MEDS: LEVOTHYROXINE 100 MCG TAB PO SCH (06:18)
[2019-10-13] MEDS: HEPARIN SODIUM,PORCINE 5,000 UNIT/ML 1 ML VIAL SQ SCH ×2 (08:21→19:53)
[2019-10-13] MEDS: ASPIRIN 81 MG PO SCH (08:21)
[2019-10-13] MEDS: FAMOTIDINE 20 MG TAB PO SCH ×2 (08:21→19:53)
--- NOTE | 2019-10-13 09:39 | P.PN ---
Subjective Progress Note Date: 10/13/19 Principal diagnosis: Chest pain This is a very pleasant 64-year-old female patient who was somewhat poor historian but with a past medical history significant for diabetes type 2 as well as significant family history of coronary artery disease presented to the hospital complaining of chest discomfort as well as symptoms of dizziness and lightheadedness. The patient described discomfort in the mid of the chest as a burning sensation with some radiation to the left arm without associated symptoms of sweating or syncope. Beside that she describes chronic dizziness and lightheadedness without any symptoms of heart racing or fluttering. The EKG showed sinus rhythm without any significant ST or T-wave abnormalities and the chest x-ray did not show any acute abnormalities. The blood work in terms of troponin came in to be unremarkable as well as an acute coronary event was ruled out. The patient was seen today October [id number]. Unfortunately she continues to have ongoing chest discomfort she states is about 6/10 in intensity. In view of her multiple risk factors for coronary artery disease including diabetes and hypertension and dyslipidemia I am going to schedule the patient to undergo a coronary angiogram was Dr. Amaya. Further recommendation to follow that. Meanwhile will continue the current medical regimen. The echo revealed normal LV function without significant valvular abnormalities. Objective - Vital Signs Vital signs: Vital Signs Temp 98 F 10/13/19 03:00 Pulse 89 10/13/19 03:00 Resp 18 10/13/19 03:00 BP 116/61 10/13/19 03:00 Pulse Ox 95 10/13/19 03:00 Intake & Output 10/12/19 10/13/19 10/13/19 18:59 06:59 18:59 Intake Total 450 Balance 450 Intake: Oral 450 Other: Voiding Method Bedside Commode Toilet Bedside Commode # Voids 1 2 # Bowel Movements 1 - Constitutional General appearance: Present: no acute distress - Respiratory Respiratory: bilateral: CTA - Cardiovascular Rhythm: regular Heart sounds: normal: S1, S2 - Labs CBC & Chem 7: 10/12/19 06:20 10/12/19 06:20 Labs: Abnormal Lab Results - Last 24 Hours (Table) 10/12/19 10/12/19 10/12/19 Range/Units 12:10 16:50 20:19 POC Glucose (mg/dL) 119 H 162 H 104 H (75-99) mg/dL 10/13/19 Range/Units 06:15 POC Glucose (mg/dL) 123 H (75-99) mg/dL Assessment and Plan Assessment: Assessment #1 ongoing chest discomfort #2 multiple risk factors Plan #1 I recommended proceeding with coronary angiogram #2 follow-up with the patient
[2019-10-13] MEDS ORDERED: LIDOCAINE 1% INJ 10MG/ML (20 ML MDV) ONE (11:09)
[2019-10-13] MEDS ORDERED: VERAPAMIL 2.5 MG/ML 2 ML AMP ONE (11:09)
[2019-10-13] MEDS ORDERED: IV FLUID CONTINUATION 1,000 ML IV ONE (11:36)
[2019-10-13] MEDS ORDERED: fentaNYL (PF) 50 MCG/ML 2 ML AMP ONE (11:41)
[2019-10-13] MEDS ORDERED: fentaNYL (PF) 50 MCG/ML 2 ML AMP IVP ONE (11:43)
[2019-10-13] MEDS ORDERED: LIDOCAINE 1% INJ 10MG/ML (20 ML MDV) SQ ONE (11:47)
[2019-10-13] MEDS ORDERED: MIDAZOLAM 2 MG/2 ML VIAL IVP ONE (11:47)
[2019-10-13] MEDS ORDERED: VERAPAMIL SYRINGE (5 MG/10 ML) IVP ONE (11:48)
[2019-10-13] MEDS ORDERED: HEPARIN SODIUM 1,000 UN/ML (10ML VL) ONE (11:58)
[2019-10-13] MEDS ORDERED: HEPARIN SODIUM 1,000 UN/ML (10ML VL) IV ONE (11:59)
[2019-10-13] MEDS ORDERED: IOPAMIDOL-370 125ML BTL INJ ONE (12:09)
[2019-10-13] MEDS ORDERED: RX INFO: IV CONTRAST WAS GIVEN 1 EACH MISC MISCELLANE PRN (12:10)
[2019-10-13] MEDS ORDERED: SODIUM CHLORIDE 0.9% 1,000 ML IV SCH (12:15)
[2019-10-13 12:59] LABS: Glucose,Whole Blood 128 mg/dL (75-99)
[2019-10-13] MEDS: ONDANSETRON 4 MG/2 ML VIAL IVP PRN (14:46)
[2019-10-13 16:40] LABS: Glucose,Whole Blood 121 mg/dL (75-99)
[2019-10-13] MEDS ORDERED: CYANOCOBALAMIN 1,000 MCG/ML 1 ML VIAL IM ONE (17:37)
--- NOTE | 2019-10-13 17:37 | P.PN ---
Subjective Progress Note Date: 10/13/19 Patient continues to feel dizzy with vertigo. However states is better than yesterday. No new concerns. Patient is laying comfortably in the bed. Appears more pleasant. Objective - Vital Signs Vital signs: Vital Signs Temp 97.7 F 10/13/19 09:00 Pulse 51 L 10/13/19 09:00 Resp 18 10/13/19 09:00 BP 112/65 10/13/19 09:00 Pulse Ox 100 10/13/19 09:00 Intake & Output 10/12/19 10/13/19 10/13/19 18:59 06:59 18:59 Intake Total 450 50 Output Total 400 Balance 450 -350 Intake: IV 50 Intake, IV Titration 0 Amount Sodium Chloride 0.9% 1, 0 000 ml @ 100 mls/hr IV . Q10H RIKY Rx#:[id number] Oral 450 0 Output: Urine 400 Other: Voiding Method Bedside Commode Toilet Toilet Bedside Commode Bedside Commode # Voids 1 2 # Bowel Movements 1 - Exam Mentation, speech language functions cranial nerves are normal. Muscle strength normal. - Labs CBC & Chem 7: 10/12/19 06:20 10/12/19 06:20 Labs: Abnormal Lab Results - Last 24 Hours (Table) 10/12/19 10/13/19 10/13/19 Range/Units 20:19 06:15 12:58 POC Glucose (mg/dL) 104 H 123 H 128 H (75-99) mg/dL 10/13/19 Range/Units 16:39 POC Glucose (mg/dL) 121 H (75-99) mg/dL Assessment and Plan Assessment: * Vertigo, probable due to peripheral vestibular dysfunction. Patient had 2 different episodes of vertigo in the past. Symptoms suggestive of benign positional peripheral vertigo (BPPV), as her symptoms mainly occur when turning to the left or getting up. * Diabetes, controlled * Dyslipidemia * Obesity * Chest pain, cardiology on board. * Family history of coronary artery and cerebrovascular disease. Plan: * Computed tomography scan of head showed no mass lesion, or acute process. Visualized paranasal sinuses are clear. External auditory canal appears clear. * CTA of the head was negative for any aneurysm, intracranial atherosclerosis, occlusion or dissection. * Patient states she underwent coronary angiogram today as well, which was also reportedly normal. * Patient had a normal carotid Doppler and 2-D echo. * B12 370, folate level 7.0. We will give B12 injection once, as B12 level is somewhat borderline. * Continue meclizine. * Continue aspirin 81 mg, Lipitor. May decrease the dose of Lipitor to 40 mg, as her total cholesterol is 124 and LDL is 22. Patient does have high triglycerides 331 and low HDL 36. * Suggest outpatient vestibular rehabilitation for BPPV. * Neurologically clear.
[2019-10-13 19:44] LABS: Glucose,Whole Blood 149 mg/dL (75-99)
[2019-10-13] MEDS: ATORVASTATIN 80 MG TAB PO SCH (19:53)
[2019-10-13] MEDS: SERTRALINE 100 MG TAB PO SCH (19:53)
[2019-10-13] MEDS: lamoTRIgine 100 MG TAB PO SCH (19:53)
--- NOTE | 2019-10-13 20:01 | CC ---
CARDIAC CATHETERIZATION REPORT Mrs. Welch is a 64-year-old female with a known history of hypertension, hyperlipidemia and diabetes mellitus who presented with symptoms of chest discomfort. She was evaluated by Dr. Richards. She continued to have chest discomfort. Her enzymes were negative. Because of her multiple risk factors and her presentation, recommendation was made regarding cardiac catheterization. The procedures, its risks and complication were discussed with the patient, who was in full understanding and agreement. PROCEDURE DESCRIPTION: Patient was brought to the laborer general in a fasting, semi-sedated state after receiving fentanyl and Benadryl and achieving achieving a moderate conscious sedated state. Using Xylocaine anesthesia and Seldinger technique, a 6-Vincentian sheath was introduced in the right radial artery. Selective right and left coronary angiography was performed using 5-Vincentian 3-1/2 bend, right and left Mary catheters. Multiple views were taken of the coronary arteries, including hemiaxial views. Following that, the 5-Vincentian left Mary was used to cross the aortic valve and left ventricular end-diastolic pressure was calculated. Following that, catheter and sheath were removed. Hemostasis was obtained with deployment of a TR band. There was no immediate complication. Patient was returned to her room in stable condition. Of note, the patient received 5000 units of intravenous heparin as well as intra-arterial verapamil. FINDINGS: LEFT MAIN: This is a large-sized vessel bifurcating into left circumflex and left anterior descending artery. Left main coronary artery has no evidence of high-grade stenosis. LEFT ANTERIOR DESCENDING ARTERY: This is a large-sized vessel reaching toward the apex with a wrap around the apex segment, mildly calcified proximally, giving rise to a diagonal branch of moderate caliber. The left anterior descending artery as well as its branches have no evidence of obstructive coronary artery disease. LEFT CIRCUMFLEX: This is a nondominant vessel giving rise to 2 obtuse marginal branches. The left circumflex as well as its branches have no evidence of obstructive coronary artery disease. RIGHT CORONARY ARTERY: This is a large dominant vessel bifurcating distally into PDA and posterolateral segment and branches. The right coronary artery as well as its branches have no evidence of obstructive coronary artery disease. LEFT VENTRICULOGRAM: Left ventriculogram was not performed. HEMODYNAMICS: There was no gradient across the aortic valve. The left ventricular end- diastolic pressure was 14-16 mmHg. CONCLUSION: 1. Normal coronary arteries with mild calcification in proximal LAD. 2. Right dominance. RECOMMENDATIONS: In view of findings and anatomy, I have recommended continuing with medical therapy with the aggressive coronary risk modifications that have been initiated. Those findings and recommendations were discussed with the patient, and she is in full understanding and agreement. Duration of the sedation 17 minutes. KATHERINE / GURWINDER: [id number] /
--- NOTE | 2019-10-13 20:22 | P.PN ---
Subjective This is a pleasant 64 years old female with past medical history of diabetes mellitus, hyperlipidemia, asthma, diabetes mellitus, GERD, hypothyroidism, obstructive sleep apnea on CPAP. She is a patient of Dr. Medrano her PCP. She has seen Dr. Reyes before for heart problems Patient presents with multiple problems, however the concerns for her was her chest pain. Her symptoms were for 2 days, she has left-sided chest pain, radiating to the left arm felt like burning about 8-9/10 in severity currently 7/10, radiating to the left arm and neck and shoulder. Associated with some dizziness and lightheadedness and nausea and dyspnea. Also patient complains of some headache and neck pain, also complaining from left side abdominal pain which is more discomfort compared to her chest pain, she rated as 7/10, burning, she had a diarrhea about 2 days ago but was stopped and shows no bowel movement for the last 2 days, no urinary symptoms. She d enies fever. She is diabetic and she has numbness and tingling in her both lower extremity which is worse over the last 2 days. Usually her blood pressure 1:30/80 as per patient and on admission it was 106/67 and 93/61. Patient was not eating and drinking well for the last 2 days She denies smoking, alcohol or illicit drugs Vitals stable and temperature 90.3/61. Labs including CBC, BMP, liver enzymes are negative. Serial troponins are negative. ProBNP is 171. EKG showing normal sinus rhythm at 64, Chest x-ray: No acute processes were radiologist. Emergency room patient received aspirin 325 mg and continue treatment N1 milligram. Also she was started on heparin drip which is a stopped now. 10/12/2019 Patient still complain of from significant pain radiating to the left shoulder also she complains significantly from dizziness especially if she turns her head to the left side, she has neck pain and tenderness with children tenderness. She doesn't have much of abdominal pain or nausea vomiting. No diarrhea or dysuria. Baseline blood pressure 2 years ago was 129/71. Orthostasis vitals checked yesterday postoperative was negative CBC, BMP, liver function test, magnesium and phosphorus are all unremarkable site sugar control. Abdominal ultrasound yesterday showed possible liver mass with 8 mm liver lesion and MRCP with and without contrast is recommended by radiologist and we will order this test. Also will check Neck x-ray. Cardiology on the case. Neurologist surfaces also consulted for her dizziness and neck pain. He was given A1c is 7% and echo showed ejection fraction of 50-55%. We will increase her pain medication to Dilaudid. Continue with aspirin 81 mg and we will lower her normal saline 200 mL per hour. 10/13/2019 Patient is fully awake and oriented, she was complaining of from severe chest pain today and circus hand at cardiac cath which was normal She is still complaining of some dizziness and a lidocaine patch did not help much her neck pain, neurologist found her with benign peripheral positional vertigo, borderline B12 is replaced and patient was cleared by neurology service for discharge. We we think the patient's symptoms is coming from her spine degenerative disease however patient cannot fit into MRI, I instructed patient to follow-up with neurologist as an outpatient for possible MRI and she verbalized understanding and acceptance. Also patient was told about her liver mass, risk of cancer is explained to her and she verbalized understanding and acceptance to follow up with GI service as an outpatient for possible outpatient MRI, patient could not do MRCP in-house or due to her body habitus. PT/OT recommended inpatient rehab, social work therapist consulted Possible discharge in 24-48 hours Objective - Vital Signs Vital signs: Vital Signs Temp 97.9 F 10/13/19 13:25 Pulse 55 L 10/13/19 15:55 Resp 18 10/13/19 15:55 BP 121/75 10/13/19 15:55 Pulse Ox 95 10/13/19 15:55 Intake & Output 10/13/19 10/13/19 10/14/19 06:59 18:59 06:59 Intake Total 450 1290 Output Total 1000 Balance 450 290 Intake: IV 50 Intake, IV Titration 700 Amount Sodium Chloride 0.9% 1, 0 000 ml @ 100 mls/hr IV . Q10H [facility] Rx#:[id number] Sodium Chloride 0.9% 1, 700 000 ml @ 100 mls/hr IV . Q10H [facility] Rx#:[id number] Oral 450 540 Output: Urine 1000 Other: Voiding Method Toilet Toilet Bedside Commode Bedside Commode # Voids 2 # Bowel Movements 1 - Exam GENERAL: The patient is alert and oriented x3, not in any acute distress. Obese HEENT: Pupils are round and equally reacting to light. EOMI. No scleral icterus. No conjunctival pallor. Normocephalic, atraumatic. No pharyngeal erythema. No thyromegaly. CARDIOVASCULAR: S1 and S2 present. No murmurs, rubs, or gallops. -PULMONARY: Chest is clear to auscultation, no wheezing or crackles. Chest wall tenderness on the left side ABDOMEN: Soft, nontender, nondistended, normoactive bowel sounds. No palpable organomegaly. -MUSCULOSKELETAL: No joint swelling or deformity. Chest wall tenderness, neck tenderness EXTREMITIES: No cyanosis, clubbing, or pedal edema. NEUROLOGICAL: Gross neurological examination did not reveal any focal deficits. SKIN: No rashes. no petechiae. - Labs CBC & Chem 7: 10/12/19 06:20 10/12/19 06:20 Labs: Abnormal Lab Results - Last 24 Hours (Table) 10/12/19 10/13/19 10/13/19 Range/Units 20:19 06:15 12:58 POC Glucose (mg/dL) 104 H 123 H 128 H (75-99) mg/dL 10/13/19 10/13/19 Range/Units 16:39 19:41 POC Glucose (mg/dL) 121 H 149 H (75-99) mg/dL Assessment and Plan Assessment: Atypical chest pain, with tenderness. Could be musculoskeletal. Cardiac and pulmonary causes ruled out, with normal cath and negative d-dimer degenerative joint disease of the cervical spine, Recommend MRI as an outpatient Possible Liver mass, with 8 mm lesion, recommend MRCP as an outpatient Benign peripheral positional vertigo, evaluated by neurologist and cleared her for discharge Hypotension, with bradycardia , improved Diabetes mellitus Diabetic neuropathy Hyperlipidemia GERD Obstructive sleep apnea on CPAP Asthma, chronic. not acute issue Morbid obesity with BMI 63 History of mood disorder on Lamictal, not an active issue Plan: This is a pleasant 65 years old female presents with multiple issues including chest pain and neck pain and shoulder pain which we think it comes from her benefits of the spine disease, also she has liver mass. Cardiology and pulmonary causes ruled out. Patient instructed to follow up with neurologist Dr. Massey as an outpatient for MRI of the spine and with Dr. Temple. Because of outpatient for her liver mass and she agrees. Pain management Labs and medication were reviewed.. Continue same treatment. Continue with symptomatic treatment. Resume home medication. Monitor lytes and vitals. DVT and GI prophylaxis. Further recommendations of the clinical course of the patient DVT prophylaxis: Subcutaneous heparin GI Prophylaxis: Pepcid Prognosis is guarded
[2019-10-14] MEDS: HYDROmorphone 0.5 MG/0.5 ML SYRINGE IVP PRN ×2 (04:25→19:04)
[2019-10-14 06:23] LABS: Glucose,Whole Blood 120 mg/dL (75-99)
[2019-10-14] MEDS: LEVOTHYROXINE 100 MCG TAB PO SCH (06:26)
[2019-10-14] MEDS: INSULIN ASPART (NovoLOG) 100 UNIT/ML VIAL SQ SCH ×4 (06:28→21:54)
[2019-10-14] MEDS: ASPIRIN 81 MG PO SCH (10:09)
[2019-10-14] MEDS: FAMOTIDINE 20 MG TAB PO SCH ×2 (10:09→21:53)
[2019-10-14] MEDS: HEPARIN SODIUM,PORCINE 5,000 UNIT/ML 1 ML VIAL SQ SCH ×2 (10:09→21:53)
[2019-10-14] MEDS: ONDANSETRON 4 MG/2 ML VIAL IVP PRN (11:17)
[2019-10-14 12:00] LABS: Glucose,Whole Blood 144 mg/dL (75-99)
--- NOTE | 2019-10-14 12:01 | P.PN ---
Subjective Progress Note Date: 10/14/19 Principal diagnosis: Chest pain This is a very pleasant 64-year-old female patient who was somewhat poor historian but with a past medical history significant for diabetes type 2 as well as significant family history of coronary artery disease presented to the hospital complaining of chest discomfort as well as symptoms of dizziness and lightheadedness. The patient described discomfort in the mid of the chest as a burning sensation with some radiation to the left arm without associated symptoms of sweating or syncope. Beside that she describes chronic dizziness and lightheadedness without any symptoms of heart racing or fluttering. The EKG showed sinus rhythm without any significant ST or T-wave abnormalities and the chest x-ray did not show any acute abnormalities. The blood work in terms of troponin came in to be unremarkable as well as an acute coronary event was ruled out. The patient underwent a heart catheterization yesterday and that revealed normal coronaries. The right radial site is soft and nontender and without any bruises and with a good pulse. From a perivascular standpoint of view, the patient can be discharged home and we will follow-up with the patient on when necessary case Objective - Vital Signs Vital signs: Vital Signs Temp 97.9 F 10/14/19 08:49 Pulse 61 10/14/19 08:49 Resp 18 10/14/19 08:49 BP 140/74 10/14/19 08:49 Pulse Ox 93 L 10/14/19 08:49 Intake & Output 10/13/19 10/14/19 10/14/19 18:59 06:59 18:59 Intake Total 1290 480 240 Output Total 1000 Balance 290 480 240 Intake: IV 50 Intake, IV Titration 700 Amount Sodium Chloride 0.9% 1, 0 000 ml @ 100 mls/hr IV . Q10H [facility] Rx#:[id number] Sodium Chloride 0.9% 1, 700 000 ml @ 100 mls/hr IV . Q10H [facility] Rx#:[id number] Oral 540 480 240 Output: Urine 1000 Other: Voiding Method Toilet Toilet Toilet Bedside Commode Bedside Commode Bedside Commode # Voids 6 - Constitutional General appearance: Present: no acute distress - Cardiovascular Rhythm: regular Heart sounds: normal: S1, S2 - Labs CBC & Chem 7: 10/12/19 06:20 10/12/19 06:20 Labs: Abnormal Lab Results - Last 24 Hours (Table) 10/13/19 10/13/19 10/13/19 Range/Units 12:58 16:39 19:41 POC Glucose (mg/dL) 128 H 121 H 149 H (75-99) mg/dL 10/14/19 Range/Units 06:20 POC Glucose (mg/dL) 120 H (75-99) mg/dL Assessment and Plan Assessment: Assessment #1 chest discomfort which has resolved #2 Status post heart catheterization with normal coronaries Plan The patient can be discharged home
--- NOTE | 2019-10-14 13:03 | P.CONS ---
History of Present Illness - Chief Complaint Medical debility - History of Present Illness I had the opportunity to see patient for inpatient rehab consultation with regard to medical debility. She was admitted to [facility] October 09 with atypical chest pain for which is seen by Dr. Richards. Cardiac causes ruled out. Seen by Dr. shrestha for dizziness, notes vertigo and vestibular mechanism. Laboratories chest x-ray negative. Abdominal ultrasound with fatty liver only. Carotid Doppler with mild plaques. C-spine x-ray with moderate to severe DDD. Head CTA negative. PT and OT prescribed. Did discuss case with Dr. Romo reports patient with cancer as well as of back pain. Previous functional history as elicited from patient: 64-year-old right-handed white female who is lives in a first-floor apartment with son. Son works full-time and most likely does the driving. Patient on disability. Describes independent with own cooking, laundry, standing shower and gait with standard cane. PCP Gracie Medrano. Denies tobacco or alcohol. Review of Systems Review of systems: ENT: Denies sneezes or discharge. Eyes: Denies discharge or photophobia. Cardiac: Denies chest pain or palpitation. Pulmonary: Denies cough or shortness of breath. Breast: Denies discharge or lumps. Gastrointestinal: Denies nausea, emesis, constipation, diarrhea. Genitourinary: Denies discharge or frequency. Musculoskeletal: Denies muscle or bone aches. Neurologic: Gen. weakness including legs. Endocrine: Denies shakes or sweats. Oncology: Denies cancers. Dermatologic: Denies rash, itching, pruritus. ALLERGY/immunology: Denies sneezes, rashes. 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 Past Anesthesia/Blood Transfusion Reactions: Family History of Problems w/ Anesthesia, Motion Sickness Additional Past Anesthesia/Blood Transfusion Reaction / Comm: clausterphobia. pt's sister had diff breathing from anesthesia Past Psychological History: Anxiety, Depression, Panic Disorder Additional Psychological History / Comment(s): boarderline personality disorder Past Alcohol Use History: None Reported Past Drug Use History: None Reported - Past Family History Son(s) Additional Family Medical History / Comment(s): She has 2 sons with no major medical problems. Patient does not have any daughters. Mother Additional Family Medical History / Comment(s): Mother at age 80 from renal failure. Father Additional Family Medical History / Comment(s): Father at age 67 with history of VA and stroke Brother(s) Family Medical History: Cancer Additional Family Medical History / Comment(s): She has total of 5 brothers and all had history of coronary artery disease and CABG, hypertension, hyperlipidemia, diabetes. Sister(s) Family Medical History: Cancer Additional Family Medical History / Comment(s): one sister of colon cancer, second sister had ovarian cancer Medications and Allergies Home Medications Medication Instructions Recorded Confirmed Type Aspirin 81 mg PO DAILY 30 Days chew 12/29/13 10/10/19 Rx Fish Oil/Dha/Epa [Fish Oil 1,200 1 cap PO DAILY 04/22/16 10/10/19 History mg Fish Oil] Atorvastatin [Lipitor] 80 mg PO HS 01/22/18 10/10/19 History Levothyroxine Sodium 150 mcg PO DAILY 01/22/18 10/10/19 History Albuterol Sulfate [Ventolin HFA] 2 puff INHALATION RT-Q4H PRN 10/10/19 10/10/19 History Ibuprofen [Motrin] 800 mg PO DAILY PRN 10/10/19 10/10/19 History Melatonin 10 mg PO HS PRN 10/10/19 10/10/19 History Sertraline [Zoloft] 100 mg PO HS 10/10/19 10/10/19 History Valsartan 80 mg PO DAILY 10/10/19 10/10/19 History lamoTRIgine 100 mg PO HS 10/10/19 10/10/19 History metFORMIN HCL ER [Glucophage Xr] 500 mg PO BID 10/10/19 10/10/19 History Allergies Allergy/AdvReac Type Severity Reaction Status Date / Time sulfamethoxazole Allergy Unknown Rash/Hives, Verified 10/10/19 21:38 [From Bactrim] SOB trimethoprim [From Bactrim] Allergy Unknown Rash/Hives, Verified 10/10/19 21:38 SOB Physical Exam Vitals: Vital Signs Temp Pulse Resp BP Pulse Ox 10/14/19 08:49 97.9 F 61 18 140/74 93 L 10/14/19 06:22 98.0 F 58 L 17 99/59 96 10/14/19 03:00 97.6 F 62 18 128/70 96 10/13/19 23:55 97.9 F 62 18 97/60 97 10/13/19 20:55 98.1 F 62 20 84/44 95 10/13/19 15:55 55 L 18 121/75 95 10/13/19 15:00 52 L 18 124/77 93 L 10/13/19 14:55 52 L 18 124/77 93 L 10/13/19 13:55 53 L 16 123/75 95 10/13/19 13:25 97.9 F 55 L 16 131/70 97 Intake and Output 10/13/19 10/14/19 10/14/19 22:59 06:59 14:59 Intake Total 1720 240 Output Total 600 Balance 1120 240 Intake: Intake, IV Titration 700 Amount Sodium Chloride 0.9% 1, 700 000 ml @ 100 mls/hr IV . Q10H [facility] Rx#:[id number] Oral 1020 240 Output: Urine 600 Other: Voiding Method Toilet Toilet Toilet Bedside Commode Bedside Commode Bedside Commode # Voids 1 6 Skin: Good color, texture, turgor. General: Obese build and comfortable appearance. Head: Normocephalic, atraumatic. Eyes: Symmetric. Pupils equal round. Ears: Symmetric. Hearing within normal limits. Mouth: Clear. Neck: Supple. Carotid without bruit. Cardiac: Regular rate and rhythm. Lungs: Clear anteriorly and posteriorly. Abdomen: Soft active nontender, obese. Extremities: Normal tone. Neurological: Mental status: Alert, cooperative, pleasant. Cranial nerves: Symmetric facial tone and trapezius. Motor: Can actively elevate all 4 limbs. Sensation: Intact throughout. DTRs: Symmetric and equal throughout. Mobility: Reports requires assistance for mobility within the room including bathroom. Results CBC & Chem 7: 10/12/19 06:20 10/12/19 06:20 Labs: Abnormal Lab Results - Last 24 Hours (Table) 10/13/19 10/13/19 10/13/19 Range/Units 12:58 16:39 19:41 POC Glucose (mg/dL) 128 H 121 H 149 H (75-99) mg/dL 10/14/19 10/14/19 Range/Units 06:20 11:59 POC Glucose (mg/dL) 120 H 144 H (75-99) mg/dL Assessment and Plan (1) Atypical chest pain Current Visit: Yes Status: Acute Code(s): R07.89 - OTHER CHEST PAIN SNOMED Code(s): 465064968 Plan: Impression: 1. Medical debility. 2. Atypical chest pain. 3. Psychiatric disorder. 4. Hypertension. 5. Asthma. 6. Diabetes. 7. Coronary artery disease with history of angina. 8. Sleep apnea. 9. Morbid obesity. 10. Reflux. 11. Hypothyroid. Comments and plan: At this time PT and OT are ongoing. Follow therapies with yourself. Am unsure specific diagnosis outpatient that would be recognized by insurance for purpose of inpatient rehab.
[2019-10-14] MEDS: ALPRAZolam 0.25 MG TAB PO PRN (15:50)
[2019-10-14 16:32] LABS: Glucose,Whole Blood 123 mg/dL (75-99)
--- NOTE | 2019-10-14 18:42 | P.PN ---
Subjective Progress Note Date: 10/14/19 Patient continues to feel dizzy with vertigo. However states is better than yesterday. Symptoms are better when she lays on the right side. Patient states that she cannot turn her head to the left. Patient is laying comfortably in the bed. Appears more pleasant. Objective - Vital Signs Vital signs: Vital Signs Temp 98.1 F 10/14/19 15:00 Pulse 58 L 10/14/19 15:00 Resp 18 10/14/19 15:00 BP 137/77 10/14/19 15:00 Pulse Ox 94 L 10/14/19 15:00 Intake & Output 10/13/19 10/14/19 10/14/19 18:59 06:59 18:59 Intake Total 7400 017 7715 Output Total 1000 600 Balance 290 480 660 Intake: IV 50 Intake, IV Titration 700 Amount Sodium Chloride 0.9% 1, 0 000 ml @ 100 mls/hr IV . Q10H [facility] Rx#:[id number] Sodium Chloride 0.9% 1, 700 000 ml @ 100 mls/hr IV . Q10H [facility] Rx#:[id number] Oral 646 [id number] 9338 Output: Urine 1000 600 Other: Voiding Method Toilet Toilet Toilet Bedside Commode Bedside Commode Bedside Commode # Voids 6 - Exam Mentation, speech language functions cranial nerves are normal. Muscle strength normal. - Labs CBC & Chem 7: 10/12/19 06:20 10/12/19 06:20 Labs: Abnormal Lab Results - Last 24 Hours (Table) 10/13/19 10/14/19 10/14/19 Range/Units 19:41 06:20 11:59 POC Glucose (mg/dL) 149 H 120 H 144 H (75-99) mg/dL 10/14/19 Range/Units 16:31 POC Glucose (mg/dL) 123 H (75-99) mg/dL Assessment and Plan Assessment: * Vertigo, probable due to peripheral vestibular dysfunction. Patient had 2 different episodes of vertigo in the past. Symptoms suggestive of benign positional peripheral vertigo (BPPV), as her symptoms mainly occur when turning to the left or getting up. * Diabetes, controlled * Dyslipidemia * Obesity * Chest pain, cardiology on board. * Family history of coronary artery and cerebrovascular disease. Plan: * Computed tomography scan of head showed no mass lesion, or acute process. Visualized paranasal sinuses are clear. External auditory canal appears clear. * CTA of the head was negative for any aneurysm, intracranial atherosclerosis, occlusion or dissection. * Patient had a negative coronary angiogram. * Patient had a normal carotid Doppler and 2-D echo. * B12 370, folate level 7.0. We will give B12 injection once, as B12 level is somewhat borderline. * Continue meclizine. * Continue aspirin 81 mg, Lipitor. May decrease the dose of Lipitor to 40 mg, as her total cholesterol is 124 and LDL is 22. Patient does have high triglycerides 331 and low HDL 36. * Suggest outpatient vestibular rehabilitation for BPPV. * Neurologically clear. We will sign off. Please reconsult neurology if any other concerns.
--- NOTE | 2019-10-14 20:36 | P.PN ---
Subjective This is a pleasant 64 years old female with past medical history of diabetes mellitus, hyperlipidemia, asthma, diabetes mellitus, GERD, hypothyroidism, obstructive sleep apnea on CPAP. She is a patient of Dr. Medrano her PCP. She has seen Dr. Reyes before for heart problems Patient presents with multiple problems, however the concerns for her was her chest pain. Her symptoms were for 2 days, she has left-sided chest pain, radiating to the left arm felt like burning about 8-9/10 in severity currently 7/10, radiating to the left arm and neck and shoulder. Associated with some dizziness and lightheadedness and nausea and dyspnea. Also patient complains of some headache and neck pain, also complaining from left side abdominal pain which is more discomfort compared to her chest pain, she rated as 7/10, burning, she had a diarrhea about 2 days ago but was stopped and shows no bowel movement for the last 2 days, no urinary symptoms. She d enies fever. She is diabetic and she has numbness and tingling in her both lower extremity which is worse over the last 2 days. Usually her blood pressure 1:30/80 as per patient and on admission it was 106/67 and 93/61. Patient was not eating and drinking well for the last 2 days She denies smoking, alcohol or illicit drugs Vitals stable and temperature 90.3/61. Labs including CBC, BMP, liver enzymes are negative. Serial troponins are negative. ProBNP is 171. EKG showing normal sinus rhythm at 64, Chest x-ray: No acute processes were radiologist. Emergency room patient received aspirin 325 mg and continue treatment N1 milligram. Also she was started on heparin drip which is a stopped now. 10/12/2019 Patient still complain of from significant pain radiating to the left shoulder also she complains significantly from dizziness especially if she turns her head to the left side, she has neck pain and tenderness with children tenderness. She doesn't have much of abdominal pain or nausea vomiting. No diarrhea or dysuria. Baseline blood pressure 2 years ago was 129/71. Orthostasis vitals checked yesterday postoperative was negative CBC, BMP, liver function test, magnesium and phosphorus are all unremarkable site sugar control. Abdominal ultrasound yesterday showed possible liver mass with 8 mm liver lesion and MRCP with and without contrast is recommended by radiologist and we will order this test. Also will check Neck x-ray. Cardiology on the case. Neurologist surfaces also consulted for her dizziness and neck pain. He was given A1c is 7% and echo showed ejection fraction of 50-55%. We will increase her pain medication to Dilaudid. Continue with aspirin 81 mg and we will lower her normal saline 200 mL per hour. 10/13/2019 Patient is fully awake and oriented, she was complaining of from severe chest pain today and ct scan tech at cardiac cath which was normal She is still complaining of some dizziness and a lidocaine patch did not help much her neck pain, neurologist found her with benign peripheral positional vertigo, borderline B12 is replaced and patient was cleared by neurology service for discharge. We we think the patient's symptoms is coming from her spine degenerative disease however patient cannot fit into MRI, I instructed patient to follow-up with neurologist as an outpatient for possible MRI and she verbalized understanding and acceptance. Also patient was told about her liver mass, risk of cancer is explained to her and she verbalized understanding and acceptance to follow up with GI service as an outpatient for possible outpatient MRI, patient could not do MRCP in-house or due to her body habitus. PT/OT recommended inpatient rehab, director social consulted Possible discharge in 24-48 hours 10/14/2019 Patient is clinically stable, her chest pain is better controlled she still has some ongoing dizziness. Thought to be due to because by spine disease, MRI of the spine is recommended as as patient, also she has liver masses, unknown etiology, recommended MRCP as an outpatient as well Cardiac and neurology services signed off on cleared patient for discharge Consult Dr. Palmer for possible inpatient rehab Patient is medically stable for discharge pending placement DC Dilaudid and switched to an [place] 103 25 mg Objective - Vital Signs Vital signs: Vital Signs Temp 98.1 F 10/14/19 15:00 Pulse 58 L 10/14/19 15:00 Resp 18 10/14/19 15:00 BP 137/77 10/14/19 15:00 Pulse Ox 94 L 10/14/19 15:00 Intake & Output 10/13/19 10/14/19 10/14/19 18:59 06:59 18:59 Intake Total 9840 829 6135 Output Total 1000 600 Balance 290 480 660 Intake: IV 50 Intake, IV Titration 700 Amount Sodium Chloride 0.9% 1, 0 000 ml @ 100 mls/hr IV . Q10H RIKY Rx#:[id number] Sodium Chloride 0.9% 1, 700 000 ml @ 100 mls/hr IV . Q10H RIKY Rx#:[id number] Oral [phone] Output: Urine 1000 600 Other: Voiding Method Toilet Toilet Toilet Bedside Commode Bedside Commode Bedside Commode # Voids 6 - Exam GENERAL: The patient is alert and oriented x3, not in any acute distress. Obese HEENT: Pupils are round and equally reacting to light. EOMI. No scleral icterus. No conjunctival pallor. Normocephalic, atraumatic. No pharyngeal erythema. No thyromegaly. CARDIOVASCULAR: S1 and S2 present. No murmurs, rubs, or gallops. -PULMONARY: Chest is clear to auscultation, no wheezing or crackles. Chest wall tenderness on the left side ABDOMEN: Soft, nontender, nondistended, normoactive bowel sounds. No palpable organomegaly. -MUSCULOSKELETAL: No joint swelling or deformity. Chest wall tenderness, neck tenderness EXTREMITIES: No cyanosis, clubbing, or pedal edema. NEUROLOGICAL: Gross neurological examination did not reveal any focal deficits. SKIN: No rashes. no petechiae. - Labs CBC & Chem 7: 10/12/19 06:20 10/12/19 06:20 Labs: Abnormal Lab Results - Last 24 Hours (Table) 10/13/19 10/14/19 10/14/19 Range/Units 19:41 06:20 11:59 POC Glucose (mg/dL) 149 H 120 H 144 H (75-99) mg/dL 10/14/19 Range/Units 16:31 POC Glucose (mg/dL) 123 H (75-99) mg/dL Assessment and Plan Assessment: Atypical chest pain, with tenderness. Could be musculoskeletal. Cardiac and pulmonary causes ruled out, with normal cath and negative d-dimer degenerative joint disease of the cervical spine, Recommend MRI as an outpatient Possible Liver mass, with 8 mm lesion, recommend MRCP as an outpatient Benign peripheral positional vertigo, evaluated by neurologist and cleared her for discharge Hypotension, with bradycardia , improved Diabetes mellitus Diabetic neuropathy Hyperlipidemia GERD Obstructive sleep apnea on CPAP Asthma, chronic. not acute issue Morbid obesity with BMI 63 History of mood disorder on Lamictal, not an active issue Plan: This is a pleasant 65 years old female presents with multiple issues including chest pain and neck pain and shoulder pain which we think it comes from her degenerative disease the spine , also she has possible liver mass. Cardiology and pulmonary causes ruled out. Patient instructed to follow up with neurologist Dr. Massey as an outpatient for MRI of the spine and with Dr. Angel hurtado Because of outpatient for her liver mass and she agrees. Pain management. Patient is going for inpatient rehab Labs and medication were reviewed.. Continue same treatment. Continue with symptomatic treatment. Resume home medication. Monitor lytes and vitals. DVT and GI prophylaxis. Further recommendations of the clinical course of the patient DVT prophylaxis: Subcutaneous heparin GI Prophylaxis: Pepcid Prognosis is guarded
[2019-10-14 21:33] LABS: Glucose,Whole Blood 136 mg/dL (75-99)
[2019-10-14] MEDS: SERTRALINE 100 MG TAB PO SCH (21:53)
[2019-10-14] MEDS: ATORVASTATIN 80 MG TAB PO SCH (21:53)
[2019-10-14] MEDS: LIDOCAINE 5% PATCH TOPICAL SCH (21:54)
[2019-10-14] MEDS: lamoTRIgine 100 MG TAB PO SCH (21:54)
[2019-10-15] MEDS: HYDROcodone/APAP 5-325MG 1 EACH TAB PO PRN ×2 (01:36→08:15)
[2019-10-15 06:29] LABS: Glucose,Whole Blood 132 mg/dL (75-99)
[2019-10-15] MEDS: LEVOTHYROXINE 100 MCG TAB PO SCH (06:43)
[2019-10-15] MEDS: INSULIN ASPART (NovoLOG) 100 UNIT/ML VIAL SQ SCH ×2 (06:44→12:10)
[2019-10-15] MEDS: HEPARIN SODIUM,PORCINE 5,000 UNIT/ML 1 ML VIAL SQ SCH (08:09)
[2019-10-15] MEDS: FAMOTIDINE 20 MG TAB PO SCH (08:09)
[2019-10-15] MEDS: ASPIRIN 81 MG PO SCH (08:09)
[2019-10-15 11:26] LABS: Glucose,Whole Blood 134 mg/dL (75-99)
[2019-10-15] MEDS ORDERED: MECLIZINE 25 MG TAB PO PRN (12:32)
[2019-10-15] MEDS: ALPRAZolam 0.25 MG TAB PO PRN (12:47)
--- NOTE | 2019-10-15 13:04 | P.DS ---
Providers Date of admission: 10/12/19 12:04 Attending physician: Nereyda Baker Consults: 10/10/19 20:32 Consult Physician Urgent Consulting Provider: Ela Amaya Consult Reason/Comments: cp Do you want consulting provider notified?: Yes 10/11/19 15:22 Consult Physician Urgent Consulting Provider: Bob Kaba Consult Reason/Comments: dizziness especially if turn to left. and eye floater Do you want consulting provider notified?: Yes 10/14/19 11:03 Consult Physician Urgent Consulting Provider: Darrell Ochoa Consult Reason/Comments: inpatient rehab Do you want consulting provider notified?: Yes Primary care physician: Gracie Medrano [facility] Course: Diagnoses: -Neck pain radiating to the shoulder, down to the chest and to the abdominal cavity due to degenerative spine disease with cervical x-ray showing Multilevel moderate to severe degenerative disc disease with suspected foraminal encroachment recommended follow-up MRI however patient could not fit a due to body habitus, referred to outpatient follow-up and MRI -Atypical chest pain, with tenderness. musculoskeletal in nature. Cardiac cath showed normal coronaries. D-dimer is negative at 0.39 -Hypotension, with bradycardia , improving -lightheadedness and dizziness. Suspected to be benign positional peripheral vertigo (BPPV) -Possible liver mass with 8 mm liver lesion, patient could not fit into MRI machine due to body habitus. LFT is normal, patient is referred for outpatient web specialist. She will need MRCP with and without contrast as an outpatient -Diabetes mellitus, hold metformin and continue with insulin sliding scale -Diabetic neuropathy -Hyperlipidemia -GERD -Obstructive sleep apnea on CPAP -Asthma, chronic. not acute issue -Morbid obesity with BMI 63 -History of mood disorder on Lamictal, not an active issue hospital course Hospital course: his is a pleasant 64 years old female with past medical history of diabetes mellitus, hyperlipidemia, asthma, diabetes mellitus, GERD, hypothyroidism, obstructive sleep apnea on CPAP. She is a patient of Dr. Medrano her PCP. She has seen Dr. Reyes before for heart problems She presented with multiple medical problem but mainly was admitted for chest pain and tenderness to rule out cardiac causes, circular tank cooper evaluated the patient and she had an unremarkable echocardiogram, further workup was un remarkable and circular tank cooper cleared her for discharge. D-dimer was negative. Part of his workup circular tank cooper ordered abdominal ultrasound for her abdominal pain which was suspected liver metastases besides 8 mm liver lesion, MRCP with and without contrast is recommended however due to her body habitus she could not fit into the MRI machine. Her liver enzymes and bilirubin was not elevated so patient referred to outpatient to follow-up with GI service, (patient is informed about the risks including but not limited to risk of cancer and she verbalized understanding and acceptance and states she will follow up) However rethought that patient multiple pain symptoms in her neck, shoulder, chest and abdomen mostly related to degenerative disc disease, cervical spine x- rays showed extensive multilevel degenerative disc disease with foraminal encroachment and they recommended MRI of the spine and again because of her body habitus this could not be done so patient was referred for outpatient follow-up and she agrees Neurologist evaluated the patient for her dizziness, CTA of the brain was negative and most likely patient has BPPV PER Neurologist Patient has normal cardiac cath her metformin 500 mg twice daily was held and it can be resumed upon her doctor decision. Also she was on Xanax 0.25 mg 3 times a day as needed which was held. Her symptoms improved and patient felt better, patient agrees to go home today and follow-up as an outpatient Patient was cleared for discharge by all consultants including cardiology and neurology for discharge Problems and management plan were discussed with the patient and he verbalized understanding and acceptance Patient was found stable and can be discharged home however he needs follow-up as an outpatient. Patient was instructed to follow up with PCP Dr. Medrano within one week and patient agrees. Also patient was instructed to follow up with circular tank cooper Dr. Carvajal 2 weeks and web specialist Natalie Giang for her liver mass in 2 weeks and she agrees. Also patient referred for follow-up with neurologist Dr. Massey in one week and she agrees. Appointment made for the patient with Dr. Temple the web specialist on 10/[address] Medrano and nurse practitioner Felipa on 10/18 and she agrees with these appointments. I called her PCP Dr. Medrano, she was not available so I spoke with her nurse practitioner Felipa and updated her with the above problem and recommendation for MRCP for liver mass and MRI of the cervical spine for her degenerative spine disease and she found it took note of these Gen: patient is a AAOx3, no distress. Morbidly obese -CVS: S1-S2, RRR, no murmur. Anterior chest wall tenderness, increased by elevated the arm above the heads Lungs: B/L CTA, no wheezing. Abdomen: soft, no distention, no tenderness, positive bowel sounds Extremity: no leg edema or induration Time spent more than 35 minutes Patient Condition at Discharge: Undetermined Plan - Discharge Summary Discharge Rx Participant: Yes New Discharge Prescriptions: New Meclizine [Antivert] 25 mg PO TID PRN #0 tab PRN Reason: Vertigo Aspirin 81 mg PO DAILY chew Heparin Sodium,Porcine [Heparin Sodium] 5,000 unit SQ Q12HR vial Lidocaine 5% Patch [Lidoderm 5% Patch] 1 patch TOPICAL DAILY@2100 patch HYDROcodone/APAP 5-325MG [[place] 5-325] 1 each PO Q6HR PRN 3 Days #12 tab PRN Reason: Pain INSULIN ASPART (NovoLOG) [NovoLOG (formulary)] 0 unit SQ ACHS vial Famotidine [Pepcid] 20 mg PO Q12HR #0 tab Ondansetron [Zofran] 4 mg PO Q8HR PRN #30 tab PRN Reason: Nausea And Vomiting Continue Aspirin 81 mg PO DAILY 30 Days chew Fish Oil/Dha/Epa [Fish Oil 1,200 mg Fish Oil] 1 cap PO DAILY Atorvastatin [Lipitor] 80 mg PO HS Levothyroxine Sodium 150 mcg PO DAILY Albuterol Sulfate [Ventolin HFA] 2 puff INHALATION RT-Q4H PRN PRN Reason: Shortness Of Breath lamoTRIgine 100 mg PO HS Melatonin 10 mg PO HS PRN PRN Reason: SLEEP Sertraline [Zoloft] 100 mg PO HS Ibuprofen [Motrin] 800 mg PO DAILY PRN 3 Days #0 PRN Reason: Pain Discontinued metFORMIN HCL ER [Glucophage Xr] 500 mg PO BID Valsartan 80 mg PO DAILY Discharge Medication List Aspirin 81 mg PO DAILY 30 Days chew 12/29/13 [Rx] Fish Oil/Dha/Epa [Fish Oil 1,200 mg Fish Oil] 1 cap PO DAILY 04/22/16 [History] Atorvastatin [Lipitor] 80 mg PO HS 01/22/18 [History] Levothyroxine Sodium 150 mcg PO DAILY 01/22/18 [History] Albuterol Sulfate [Ventolin HFA] 2 puff INHALATION RT-Q4H PRN 10/10/19 [History] Melatonin 10 mg PO HS PRN 10/10/19 [History] Sertraline [Zoloft] 100 mg PO HS 10/10/19 [History] lamoTRIgine 100 mg PO HS 10/10/19 [History] Aspirin 81 mg PO DAILY chew 10/15/19 [Rx] Famotidine [Pepcid] 20 mg PO Q12HR #0 tab 10/15/19 [Rx] HYDROcodone/APAP 5-325MG [[place] 5-325] 1 each PO Q6HR PRN 3 Days #12 tab 09/25 03/15 [Rx] Heparin Sodium,Porcine [Heparin Sodium] 5,000 unit SQ Q12HR vial 10/15/19 [Rx] INSULIN ASPART (NovoLOG) [NovoLOG (formulary)] 0 unit SQ ACHS vial 10/15/19 [Rx] Ibuprofen [Motrin] 800 mg PO DAILY PRN 3 Days #0 10/15/19 [Rx] Lidocaine 5% Patch [Lidoderm 5% Patch] 1 patch TOPICAL DAILY@2100 patch 10/15/19 [Rx] Meclizine [Antivert] 25 mg PO TID PRN #0 tab 10/15/19 [Rx] Ondansetron [Zofran] 4 mg PO Q8HR PRN #30 tab 10/15/19 [Rx] Follow up Appointment(s)/Referral(s): Ela Amaya MD [STAFF PHYSICIAN] - 1 Week (Cardiology office will call with appointment time) Gracie Medrano DO [Primary Care Provider] - 10/19/19 12:00 pm Natalie Temple MD [STAFF PHYSICIAN] - 10/18/19 12:00 pm () Ainsley Massey MD [Medical Doctor] - 1 Week (Message left at office to call you with appointment time) Patient Instructions/Handouts: *Surgery [facility] - After Heart Catheterization - Cancer Genetic Counselor Instructions, Chest Pain (ED), Heart Healthy Diet (DC), Benign Paroxysmal Positional Vertigo (DC) Discharge Disposition: TRANSFER TO SNF/ECF
[2019-10-15 14:26] VITALS: BP 144/79; PULSE 62; RESP 16; TEMP 98.7
== END 2019-10-15 17:12 | DRG 287 ==
LOC: EC 19:04 → 3NCARDOBS 20:33 → OBSVTOIN 10-12 12:04
PROVIDERS: ADMIT Hospitalist; ATTEND Hospitalist
PROC: B2111ZZ Fluoroscopy of Multiple Coronary Arteries using Low Osmolar Contrast (ICD-10-PCS; principal; 2019-10-13 08:50)
PROC: 4A023N7 Measurement of Cardiac Sampling and Pressure, Left Heart, Percutaneous Approach (ICD-10-PCS; principal; 2019-10-13 08:50)
DX: R07.89 Other chest pain (principal); Z68.44 Body mass index [BMI] 60.0-69.9, adult; I95.9 Hypotension, unspecified; R00.1 Bradycardia, unspecified; E03.9 Hypothyroidism, unspecified; E11.40 Type 2 diabetes mellitus with diabetic neuropathy, unspecified; E66.01 Morbid (severe) obesity due to excess calories; E78.5 Hyperlipidemia, unspecified; F32.9 Major depressive disorder, single episode, unspecified; F41.0 Panic disorder [episodic paroxysmal anxiety]; F60.9 Personality disorder, unspecified; G47.33 Obstructive sleep apnea (adult) (pediatric); H81.10 Benign paroxysmal vertigo, unspecified ear; I10 Essential (primary) hypertension; I25.10 Atherosclerotic heart disease of native coronary artery without angina pectoris; K76.0 Fatty (change of) liver, not elsewhere classified; J45.909 Unspecified asthma, uncomplicated; K21.9 Gastro-esophageal reflux disease without esophagitis; M50.30 Other cervical disc degeneration, unspecified cervical region; K57.90 Diverticulosis of intestine, part unspecified, without perforation or abscess without bleeding; K76.9 Liver disease, unspecified; R53.81 Other malaise; Z79.84 Long term (current) use of oral hypoglycemic drugs; Z79.82 Long term (current) use of aspirin; Z79.890 Hormone replacement therapy; Z79.899 Other long term (current) drug therapy; Z88.1 Allergy status to other antibiotic agents; Z88.2 Allergy status to sulfonamides; Z98.890 Other specified postprocedural states; Z98.42 Cataract extraction status, left eye; Z98.41 Cataract extraction status, right eye; Z96.1 Presence of intraocular lens; Z87.442 Personal history of urinary calculi; Z91.81 History of falling; Z83.3 Family history of diabetes mellitus; Z82.49 Family history of ischemic heart disease and other diseases of the circulatory system; Z82.3 Family history of stroke; Z80.41 Family history of malignant neoplasm of ovary; Z80.0 Family history of malignant neoplasm of digestive organs; Z84.1 Family history of disorders of kidney and ureter; Z84.89 Family history of other specified conditions
CPT/HCPCS: 36415; 70496; 71046; 72050; 76700; 80048; 80053; 80061; 80076; 82607; 82746; 83036; 83690; 83735; 83880; 84100; 84145; 84443; 84484; 85025; 85049; 85379; 85610; 85730; 93005; 93306; 93458; 93880; 96374; 99291

== ENCOUNTER 2020-04-27 19:20 | Inpatient (IN) | payer MEDICARE, OTHER ==
[2020-04-27 19:57] LABS: Basophils # (A) 0.1 k/uL (0-0.2); Basophils % (A) 1 %; Eosinophils # (A) 0.3 k/uL (0-0.7); Eosinophils % (A) 3 %; HCT 38.1 % (34.0-46.0); HGB 12.3 gm/dL (11.4-16.0); Lymphocytes # (A) 1.9 k/uL (1.0-4.8); Lymphocytes % (A) 17 %; MCH 26.3 pg (25.0-35.0); MCHC 32.4 g/dL (31.0-37.0); MCV 81.3 fL (80.0-100.0); Mean Platelet Volume 8.4; Monocytes # (A) 0.6 k/uL (0-1.0); Monocytes % (A) 6 %; Neutrophils # (A) 7.8 k/uL (1.3-7.7); Neutrophils % (A) 72 %; Platelet Count 307 k/uL (150-450); RBC 4.68 m/uL (3.80-5.40); WBC 10.8 k/uL (3.8-10.6)
[2020-04-27 20:07] LABS: ALT 22 U/L (4-34); AST 25 U/L (14-36); African American GFR (CKD) >90 (>60 ml/min/1.73 sqM); Albumin 4.3 g/dL (3.5-5.0); Alkaline Phosphatase 60 U/L (38-126); Anion Gap 11 mmol/L; Blood Urea Nitrogen 19 mg/dL (7-17); Calcium 9.5 mg/dL (8.4-10.2); Carbon Dioxide 23 mmol/L (22-30); Chloride 103 mmol/L (98-107); Glucose 140 mg/dL (74-99); Lipase 147 U/L (23-300); Magnesium 1.9 mg/dL (1.6-2.3); Non-African American GFR(CKD) 83 (>60 ml/min/1.73 sqM); Sodium 137 mmol/L (137-145); Total Bilirubin 0.7 mg/dL (0.2-1.3)
[2020-04-27 20:11] LABS: Partial Thromboplastin Time 22.2 sec (22.0-30.0); Prothrombin Time 10.3 sec (9.0-12.0)
--- NOTE | 2020-04-27 20:23 | ED ---
Chest Pain HPI - General Chief Complaint: Chest Pain Stated Complaint: Chest Pain Time Seen by Provider: 04/27/20 19:21 Source: EMS Mode of arrival: EMS Limitations: no limitations - History of Present Illness Initial Comments: Patient is a 64-year-old female past history of diabetes, hypertension, sleep apnea, morbid obesity who presents to the emergency department with reported chest pain. Patient states that she has had substernal chest pain which radiates to her left arm since Friday. She complains of associated nausea, palpitations and generalized body aches. She did see her primary care doctor in office yesterday who placed a heart monitor on her. States that her symptoms got progressively worse today and therefore she called her primary care doctor. They did recommend that she go into the emergency room for evaluation. She denies previous history of cardiac disease. Did have a cardiac catheterization last year. Denies history of DVT or PE. No current lower externally swelling. Denies cough, fevers or chills. Patient was given aspirin and nitro en route to the hospital and does report to some improvement in her symptoms. No other alleviating, precipitating or modifying factors - Related Data Home Medications Medication Instructions Recorded Confirmed Fish Oil/Dha/Epa [Fish Oil 1,200 1 cap PO DAILY 04/22/16 04/27/20 mg Fish Oil] Atorvastatin [Lipitor] 80 mg PO HS 01/22/18 04/27/20 Levothyroxine Sodium 150 mcg PO DAILY 01/22/18 04/27/20 Albuterol Sulfate [Ventolin HFA] 2 puff INHALATION RT-Q4H PRN 10/10/19 04/27/20 Melatonin 10 mg PO HS PRN 10/10/19 04/27/20 Sertraline [Zoloft] 100 mg PO DAILY 10/10/19 04/27/20 lamoTRIgine 100 mg PO HS 10/10/19 04/27/20 Ferrous Sulfate [Feosol] 325 mg PO DAILY 04/27/20 04/27/20 Fluticasone Nasal [place] [Flonase 2 spray EA NOSTRIL DAILY PRN 04/27/20 04/27/20 Nasal [place]] Fluticasone/Salmeterol [Advair 1 puff INHALATION RT-BID 04/27/20 04/27/20 250-50 Diskus] Furosemide [Lasix] 40 mg PO DAILY 04/27/20 04/27/20 [place] Carbonate [[place] 300 mg PO HS 04/27/20 04/27/20 Carbonate ER] Magnesium Oxide 400 mg PO DAILY 04/27/20 04/27/20 Multivitamins, Thera [Multivitamin 1 tab PO DAILY 04/27/20 04/27/20 (formulary)] Nystatin 100,000Unit/gm Cream 1 applic TOPICAL BID 04/27/20 04/27/20 [Mycostatin Cream] Potassium Chloride ER [K-Dur 10] 10 meq PO DAILY 04/27/20 04/27/20 Valsartan 80 mg PO DAILY 04/27/20 04/27/20 metFORMIN HCL [Glucophage] 500 mg PO BID 04/27/20 04/27/20 Previous Rx's Medication Instructions Recorded Aspirin 81 mg PO DAILY chew 10/15/19 Allergies Allergy/AdvReac Type Severity Reaction Status Date / Time sulfamethoxazole Allergy Unknown Rash/Hives, Verified 04/27/20 22:16 [From Bactrim] SOB trimethoprim [From Bactrim] Allergy Unknown Rash/Hives, Verified 04/27/20 22:16 SOB Review of Systems ROS Statement: Those systems with pertinent positive or pertinent negative responses have been documented in the HPI. ROS Other: All systems not noted in ROS Statement are negative. EKG Findings - EKG Comments: EKG Findings:: EKG demonstrates a sinus rhythm with ventricular rate of 64. CA interval 146. QRS 78. QTC of 474. 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 Past Anesthesia/Blood Transfusion Reactions: Family History of Problems w/ Anesthesia, Motion Sickness Additional Past Anesthesia/Blood Transfusion Reaction / Comment(s): clausterphobia. pt's sister had diff breathing from anesthesia Past Psychological History: Anxiety, Depression, Panic Disorder Smoking Status: Never smoker Past Alcohol Use History: None Reported Past Drug Use History: None Reported - Past Family History Son(s) Additional Family Medical History / Comment(s): She has 2 sons with no major medical problems. Patient does not have any daughters. Mother Additional Family Medical History / Comment(s): Mother at age 80 from renal failure. Father Additional Family Medical History / Comment(s): Father at age 67 with history of DE and stroke Brother(s) Family Medical History: Cancer Additional Family Medical History / Comment(s): She has total of 5 brothers and all had history of coronary artery disease and CABG, hypertension, hyperlipidemia, diabetes. Sister(s) Family Medical History: Cancer Additional Family Medical History / Comment(s): one sister of colon cancer, second sister had ovarian cancer General Exam Limitations: no limitations General appearance: alert, in no apparent distress Head exam: Present: atraumatic, normocephalic, normal inspection Eye exam: Present: normal appearance, PERRL, EOMI. Absent: scleral icterus, conjunctival injection, periorbital swelling ENT exam: Present: normal exam, mucous membranes moist Neck exam: Present: normal inspection. Absent: tenderness, meningismus, lymphadenopathy Respiratory exam: Present: normal lung sounds bilaterally. Absent: respiratory distress, wheezes, rales, rhonchi, stridor Cardiovascular Exam: Present: regular rate, normal rhythm, normal heart sounds. Absent: systolic murmur, diastolic murmur, rubs, gallop, clicks GI/Abdominal exam: Present: soft, normal bowel sounds. Absent: distended, t enderness, guarding, rebound, rigid Extremities exam: Present: normal inspection, full ROM, normal capillary refill. Absent: tenderness, pedal edema, joint swelling, calf tenderness Back exam: Present: normal inspection Neurological exam: Present: alert, oriented X3, CN II-XII intact Psychiatric exam: Present: normal affect, normal mood Skin exam: Present: warm, dry, intact, normal color. Absent: rash Course Vital Signs 04/27/20 04/27/20 04/27/20 19:22 21:04 22:16 Temperature 98.0 F Pulse Rate 69 71 66 Respiratory 20 20 20 Rate Blood Pressure 102/61 111/62 108/63 O2 Sat by Pulse 97 98 99 Oximetry 04/28/20 04/28/20 04/28/20 01:15 03:35 06:59 Temperature Pulse Rate 62 67 65 Respiratory 20 20 20 Rate Blood Pressure 131/65 130/67 126/68 O2 Sat by Pulse 99 99 100 Oximetry Chest Pain MDM - MDM Upon arrival patient is placed in room 5. A thorough history and physical exam was performed. 12-lead EKG was performed. Laboratory studies were conducted in the patient for chest x-ray. Laboratory studies reveal a negative troponin. Chest x-ray demonstrates no acute process. Due to the patient's comorbid condi tions relief with nitro I did recommend disposition reports patient did agree to. Discuss case with Dr. Shin who agreed to admit the patient. Patient remained in stable condition awaiting a bed on the floor Disposition Clinical Impression: Chest pain Disposition: ADMITTED IP TO THIS HOSP Condition: Stable Is patient prescribed a controlled substance at d/c from ED?: No Decision to Admit Reason: Admit from EC Decision Date: 04/27/20 Decision Time: 22:03
--- NOTE | 2020-04-27 20:33 | XR ---
EXAMINATION: XR chest 2V DATE AND TIME: 04/27/2020 8:13 PM CLINICAL INDICATION: [facility]; Chest Pain TECHNIQUE: Frontal and lateral COMPARISON: 10/10/2019 FINDINGS: The lungs are clear. The pleural spaces are negative. The cardiac silhouette is mildly enlarged. The remainder of the mediastinal silhouette is unremarkabl e. The skeletal structures and soft tissues are negative for acute findings. IMPRESSION: NO ACUTE PROCESS.
[2020-04-27] MEDS ORDERED: NALOXONE 0.4 MG/ML 1 ML VIAL IV PRN (22:03)
[2020-04-27] MEDS ORDERED: fentaNYL (PF) 50 MCG/ML 2 ML AMP IVP STA (22:47)
[2020-04-28] MEDS: ATORVASTATIN 80 MG TAB PO SCH ×2 (01:29→20:05)
[2020-04-28] MEDS: HYDROcodone/APAP 5-325MG 1 EACH TAB PO PRN ×2 (02:11→20:05)
[2020-04-28 03:21] LABS: Basophils # (A) 0.1 k/uL (0-0.2); Basophils % (A) 1 %; Eosinophils # (A) 0.2 k/uL (0-0.7); Eosinophils % (A) 2 %; HCT 36.3 % (34.0-46.0); HGB 11.8 gm/dL (11.4-16.0); Lymphocytes # (A) 2.8 k/uL (1.0-4.8); Lymphocytes % (A) 26 %; MCH 26.6 pg (25.0-35.0); MCHC 32.4 g/dL (31.0-37.0); Mean Platelet Volume 8.3; Monocytes # (A) 0.6 k/uL (0-1.0); Monocytes % (A) 6 %; Neutrophils # (A) 7.2 k/uL (1.3-7.7); Neutrophils % (A) 65 %; Platelet Count 295 k/uL (150-450); RBC 4.42 m/uL (3.80-5.40); RDW 13.9 % (11.5-15.5); WBC 11.1 k/uL (3.8-10.6)
[2020-04-28 03:31] LABS: African American GFR (CKD) >90 (>60 ml/min/1.73 sqM); Anion Gap 11 mmol/L; Blood Urea Nitrogen 19 mg/dL (7-17); Calcium 9.1 mg/dL (8.4-10.2); Carbon Dioxide 25 mmol/L (22-30); Chloride 103 mmol/L (98-107); Glucose 142 mg/dL (74-99); Non-African American GFR(CKD) 80 (>60 ml/min/1.73 sqM); Potassium 3.8 mmol/L (3.5-5.1); Sodium 139 mmol/L (137-145)
[2020-04-28] MEDS: SYMBICORT 80-4.5 MCG INHALER INHALATION SCH ×2 (07:55→20:09)
[2020-04-28] MEDS ORDERED: FLUTICASONE 50MCG/SPRAY NASAL 16GM EA NOSTRIL PRN (09:00)
[2020-04-28] MEDS ORDERED: NON FORMULARY DRUG (Fish Oil/Dha/Epa [Fish Oil 1,200 Mg Fish Oil] 1 EACH Capsule) PO SCH (09:00)
[2020-04-28] MEDS ORDERED: SERTRALINE 100 MG TAB PO SCH (09:00)
[2020-04-28] MEDS: VALSARTAN 80 MG TAB PO SCH (09:08)
[2020-04-28] MEDS: LEVOTHYROXINE 75 MCG TAB PO SCH (09:09)
[2020-04-28] MEDS: FUROSEMIDE 40 MG TAB PO SCH (09:33)
[2020-04-28] MEDS: ASPIRIN 81 MG PO SCH (09:33)
[2020-04-28] MEDS: POTASSIUM CHLORIDE ER 10 MEQ TAB.ER.PRT PO SCH (09:34)
[2020-04-28] MEDS: MULTIVITAMINS, THERA 1 EACH TAB PO SCH (09:34)
[2020-04-28] MEDS: FERROUS SULFATE 325 MG TAB PO SCH (09:34)
[2020-04-28] MEDS: NYSTATIN 100,000UNIT/GM CREAM 30 GM TUBE TOPICAL SCH ×2 (09:35→21:05)
[2020-04-28 11:31] LABS: Glucose,Whole Blood 144 mg/dL (75-99)
--- NOTE | 2020-04-28 11:47 | P.CRDCN ---
History of Present Illness History of present illness: HISTORY OF PRESENT ILLNESS: This is a 64-year-old female with a past medical history significant for hypertension, hyperlipidemia, diabetes mellitus, sleep apnea, hypothyroidism, GERD, and morbid obesity. Patient follows in the office with Dr. Reyes. We have been asked to see the patient in consultation for chest pain. Patient examined at the bedside. Patient states over the weekend she began having generalized weakness and states she had numbness throughout her entire body. She states over the course of the week she continued to feel unwell. She reports having intermittent chest pain and shortness of breath. She reports her weakness and fatigue continued to increase. She reports left arm pain and numbness. She states she went to her primary care physician on Friday and had a heart monitor placed. This morning, the patient's main complaint is left arm pain. She states she is unable to lift her left arm as high as her right arm due to pain. She also reports numbness of her left arm and reports numbness of her left upper extremity as well. She currently denies chest pain or pressure. EKG reveals sinus rhythm without signs of acute ischemia. Chest xray negative for acute process. Laboratory data: WBC 11.1, Hemoglobin 11.8, Platelet count 295, Sodium 139, Potassium 3.8, BUN 19, Creatinine 0.80, Troponin 3, BNP 37 Current home cardiac medications include aspirin 81 mg daily, valsartan 80 mg daily, atorvastatin 80 mg daily, Lasix 40 mg daily Most recent echocardiogram obtained in September 2019 reveals ejection fraction 50- 55%. Cardiac catheterization history: September [address] Amaya revealing normal coronary arteries with mild calcification in proximal LAD REVIEW OF SYSTEMS: At the time of my exam: CONSTITUTIONAL: Denies fever or chills. HEENT: Denies blurred vision, vision changes, or eye pain. Denies hemoptysis CARDIOVASCULAR: Denies chest pain. Denies orthopnea. Denies PND. Denies pa lpitations RESPIRATORY: Denies shortness of breath. GASTROINTESTINAL: Denies abdominal pain. Denies nausea or vomiting. HEMATOLOGIC: Denies bleeding disorders. GENITOURINARY: Denies any blood in urine. SKIN: Denies pruitis. Denies rash. PHYSICAL EXAM: VITAL SIGNS: Reviewed. GENERAL: Well-developed in no acute distress. HEENT: Head is normocephalic. Pupils are equal, round. Sclerae anicteric. Mucous membranes of the mouth are moist. Neck supple. No JVD or thyromegaly LUNGS: Respirations even and unlabored. Lungs essentially clear to auscultation bilaterally. HEART: Regular rate and rhythm. S1 and S2 heard. ABDOMEN: Soft. Nondistended. Nontender. EXTREMITIES: Decreased range of motion of left upper extremity. No clubbing or cyanosis. Peripheral pulses intact. No lower extremity edema NEUROLOGIC: Awake and alert. Oriented x 3. ASSESSMENT: Chest pain, atypical, troponin negative 3 with cardiac catheterization in September 2019 revealing normal coronary arteries Left arm pain and numbness Generalized weakness and fatigue Hypertension Hyperlipidemia Diabetes mellitus Sleep apnea not using CPAP machine GERD Hypothyroidism Morbid obesity: BMI 65.5 PLAN: Resume home cardiac medications Obtain 2-D echo to assess cardiac structure and function Patient with negative cardiac enzymes and recent cardiac catheterization revealing normal coronary arteries No further workup from a cardiac standpoint Patient may benefit from orthopedic and/or neurology consult for left upper extremity pain and numbness Further recommendations pending patient's course Nurse practitioner note has been reviewed by physician. Signing provider agrees with the documented findings, assessment, and plan of care. 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 Past Anesthesia/Blood Transfusion Reactions: Family History of Problems w/ Anesthesia, Motion Sickness Additional Past Anesthesia/Blood Transfusion Reaction / Comment(s): clausterphobia. pt's sister had diff breathing from anesthesia Past Psychological History: Anxiety, Depression, Panic Disorder Additional Psychological History / Comment(s): boarderline personality disorder Smoking Status: Never smoker Past Alcohol Use History: None Reported Past Drug Use History: None Reported - Past Family History Son(s) Additional Family Medical History / Comment(s): She has 2 sons with no major medical problems. Patient does not have any daughters. Mother Additional Family Medical History / Comment(s): Mother at age 80 from renal failure. Father Additional Family Medical History / Comment(s): Father at age 67 with history of [place] and stroke Brother(s) Family Medical History: Cancer Additional Family Medical History / Comment(s): She has total of 5 brothers and all had history of coronary artery disease and CABG, hypertension, hyperlipidemia, diabetes. Sister(s) Family Medical History: Cancer Additional Family Medical History / Comment(s): one sister of colon cancer, second sister had ovarian cancer Medications and Allergies Home Medications Medication Instructions Recorded Confirmed Type Fish Oil/Dha/Epa [Fish Oil 1,200 1 cap PO DAILY 04/22/16 04/27/20 History mg Fish Oil] Atorvastatin [Lipitor] 80 mg PO HS 01/22/18 04/27/20 History Levothyroxine Sodium 150 mcg PO DAILY 01/22/18 04/27/20 History Albuterol Sulfate [Ventolin HFA] 2 puff INHALATION RT-Q4H PRN 10/10/19 04/27/20 History Melatonin 10 mg PO HS PRN 10/10/19 04/27/20 History Sertraline [Zoloft] 100 mg PO DAILY 10/10/19 04/27/20 History lamoTRIgine 100 mg PO HS 10/10/19 04/27/20 History Aspirin 81 mg PO DAILY chew 10/15/19 04/27/20 Rx Ferrous Sulfate [Feosol] 325 mg PO DAILY 04/27/20 04/27/20 History Fluticasone Nasal [place] [Flonase 2 spray EA NOSTRIL DAILY PRN 04/27/20 04/27/20 History Nasal [place]] Fluticasone/Salmeterol [Advair 1 puff INHALATION RT-BID 04/27/20 04/27/20 History 250-50 Diskus] Furosemide [Lasix] 40 mg PO DAILY 04/27/20 04/27/20 History [place] Carbonate [[place] 300 mg PO HS 04/27/20 04/27/20 History Carbonate ER] Magnesium Oxide 400 mg PO DAILY 04/27/20 04/27/20 History Multivitamins, Thera [Multivitamin 1 tab PO DAILY 04/27/20 04/27/20 History (formulary)] Nystatin 100,000Unit/gm Cream 1 applic TOPICAL BID 04/27/20 04/27/20 History [Mycostatin Cream] Potassium Chloride ER [K-Dur 10] 10 meq PO DAILY 04/27/20 04/27/20 History Valsartan 80 mg PO DAILY 04/27/20 04/27/20 History metFORMIN HCL [Glucophage] 500 mg PO BID 04/27/20 04/27/20 History Allergies Allergy/AdvReac Type Severity Reaction Status Date / Time sulfamethoxazole Allergy Unknown Rash/Hives, Verified 04/27/20 22:16 [From Bactrim] SOB trimethoprim [From Bactrim] Allergy Unknown Rash/Hives, Verified 04/27/20 22:16 SOB Physical Exam Vitals: Vital Signs Temp Pulse Pulse Resp BP BP Pulse Ox 04/28/20 08:56 97.8 F 53 L 16 102/65 99 04/28/20 06:59 65 20 126/68 100 04/28/20 03:35 67 20 130/67 99 04/28/20 01:15 62 20 131/65 99 04/27/20 22:16 66 20 108/63 99 04/27/20 21:04 71 20 111/62 98 04/27/20 19:22 98.0 F 69 20 102/61 97 Intake and Output 04/27/20 04/28/20 04/28/20 22:59 06:59 14:59 Intake Total 0 Balance 0 Intake: Oral 0 Other: # Voids 1 Weight 152.407 kg 152.407 kg Results 04/28/20 02:48 04/28/20 02:48 Cardiac Enzymes 04/27/20 04/27/20 04/27/20 Range/Units 19:48 19:48 22:40 AST 25 (14-36) U/L Troponin I <0.012 <0.012 (0.000-0.034) ng/mL 04/28/20 Range/Units 02:48 AST (14-36) U/L Troponin I <0.012 (0.000-0.034) ng/mL Coagulation 04/27/20 Range/Units 19:48 PT 10.3 (9.0-12.0) sec APTT 22.2 (22.0-30.0) sec CBC 04/27/20 04/28/20 Range/Units 19:48 02:48 WBC 10.8 H 11.1 H (3.8-10.6) k/uL RBC 4.68 4.42 (3.80-5.40) m/uL Hgb 12.3 11.8 (11.4-16.0) gm/dL Hct 38.1 36.3 (34.0-46.0) % Plt Count 307 295 (150-450) k/uL Comprehensive Metabolic Panel 04/27/20 04/28/20 Range/Units 19:48 02:48 Sodium 137 139 (137-145) mmol/L Potassium 4.0 3.8 (3.5-5.1) mmol/L Chloride 103 103 (98-107) mmol/L Carbon Dioxide 23 25 (22-30) mmol/L BUN 19 H 19 H (7-17) mg/dL Creatinine 0.77 0.80 (0.52-1.04) mg/dL Glucose 140 H 142 H (74-99) mg/dL Calcium 9.5 9.1 (8.4-10.2) mg/dL AST 25 (14-36) U/L ALT 22 (4-34) U/L Alkaline Phosphatase 60 (38-126) U/L Total Protein 7.0 (6.3-8.2) g/dL Albumin 4.3 (3.5-5.0) g/dL Current Medications Generic Name Dose Route Start Last Admin Trade Name Freq PRN Reason Stop Dose Admin Hydrocodone Bitart/Acetaminophen 1 each 04/28/20 01:25 04/28/20 02:11 Hydrocodone/Apap 5-325mg 1 Each Tab PO 1 each Q6HR PRN Administration Pain Albuterol Sulfate 2.5 mg 04/28/20 00:05 Albuterol Nebulized 2.5 Mg/3 Ml INHALATION RT-Q4H PRN Shortness Of Breath Aspirin 81 mg 04/28/20 09:00 04/28/20 09:33 Aspirin 81 Mg PO 81 mg DAILY RIKY Administration Atorvastatin Calcium 80 mg 04/28/20 00:30 04/28/20 01:29 Atorvastatin 80 Mg Tab PO 80 mg HS RIKY Administration Budesonide/Formoterol Fumarate 2 puff 04/28/20 08:00 04/28/20 07:55 Symbicort 80-4.5 Mcg Inhaler INHALATION 2 puff RT-BID RIKY Administration Ferrous Sulfate 325 mg 04/28/20 09:00 04/28/20 09:34 Ferrous Sulfate 325 Mg Tab PO 325 mg DAILY RIKY Administration Fluticasone Propionate 2 spray 04/28/20 09:00 Fluticasone 50mcg/[place] Nasal 16gm EA NOSTRIL DAILY PRN Allergy Symptoms Furosemide 40 mg 04/28/20 09:00 04/28/20 09:33 Furosemide 40 Mg Tab PO 40 mg DAILY RIKY Administration Lamotrigine 100 mg 04/28/20 21:00 Lamotrigine 100 Mg Tab PO HS RIKY Levothyroxine Sodium 150 mcg 04/28/20 06:30 04/28/20 09:09 Levothyroxine 75 Mcg Tab PO Not Given DAILY@0630 RIKY [place] Carbonate 300 mg 04/28/20 21:00 [place] Carbonate 300 Mg Cap PO HS [facility] Multivitamins 1 each 04/28/20 09:00 04/28/20 09:34 Multivitamins, Thera 1 Each Tab PO 1 each DAILY RIKY Administration Naloxone HCl 0.2 mg 04/27/20 22:03 Naloxone 0.4 Mg/Ml 1 Ml Vial IV Q2M PRN Opioid Reversal Nystatin 1 applic 04/28/20 09:00 04/28/20 09:35 Nystatin 100,000unit/Gm Cream 30 Gm Tube TOPICAL Not Given BID RIKY Potassium Chloride 10 meq 04/28/20 09:00 04/28/20 09:34 Potassium Chloride Er 10 Meq Tab.Er.Prt PO 10 meq DAILY RIKY Administration Sertraline HCl 100 mg 04/28/20 21:00 Sertraline 100 Mg Tab PO HS RIKY Valsartan 80 mg 04/28/20 09:00 Valsartan 80 Mg Tab PO DAILY RIKY Intake and Output 04/27/20 04/28/20 04/28/20 22:59 06:59 14:59 Intake Total 0 Balance 0 Intake: Oral 0 Other: # Voids 1 Weight 152.407 kg 152.407 kg Patient Weight 04/29/20 06:59 Weight 152.407 kg 04/28/20 02:48 04/28/20 02:48
[2020-04-28] MEDS ORDERED: ONDANSETRON 4 MG/2 ML VIAL IVP PRN (12:19)
[2020-04-28] MEDS: SERTRALINE 100 MG TAB PO SCH (13:17)
[2020-04-28 17:28] LABS: Glucose,Whole Blood 118 mg/dL (75-99)
--- NOTE | 2020-04-28 18:48 | P.HPIM ---
History of Present Illness H&P Date: 04/28/20 Chief Complaint: Chest pain 64-year-old female past history of diabetes, hypertension, sleep apnea, morbid obesity who presents to the emergency department with reported chest pain. Patient states that she has had substernal chest pain which radiates to her left arm since Friday. She complains of associated nausea, palpitations and generalized body aches. She did see her primary care doctor in office yesterday who placed a heart monitor on her. States that her symptoms got progressively worse today and therefore she called her primary care doctor. They did recommen d that she go into the emergency room for evaluation. She denies previous history of cardiac disease. Did have a cardiac catheterization last year. Denies history of DVT or PE. No current lower externally swelling. Denies cough, fevers or chills. Patient was given aspirin and nitro en route to the hospital and does report to some improvement in her symptoms. No other alleviating, precipitating or modifying factors 2-lead EKG was performed. Laboratory studies were conducted in the patient for chest x-ray. Laboratory studies reveal a negative troponin. Chest x-ray demonstrates no acute process. While in the hospital patient has been complaining of recent onset left arm pain and weakness Review of Systems REVIEW OF SYSTEMS: CONSTITUTIONAL: No fever, no malaise, no fatigue. HEENT: No recent visual problems or hearing problems. Denied any sore throat. CARDIOVASCULAR: No chest pain, orthopnea, PND, no palpitations, no syncope. PULMONARY: No shortness of breath, no cough, no hemoptysis. GASTROINTESTINAL: No diarrhea, no nausea, no vomiting, no abdominal pain. NEUROLOGICAL: No headaches, no weakness, no numbness. HEMATOLOGICAL: Denies any bleeding or petechiae. GENITOURINARY: Denies any burning micturition, frequency, or urgency. MUSCULOSKELETAL/RHEUMATOLOGICAL: Denies any joint pain, swelling, or any muscle pain. ENDOCRINE: Denies any polyuria or polydipsia. The rest of the 14-point review of systems is negative. 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 Past Anesthesia/Blood Transfusion Reactions: Family History of Problems w/ Anesthesia, Motion Sickness Additional Past Anesthesia/Blood Transfusion Reaction / Comment(s): clausterphobia. pt's sister had diff breathing from anesthesia Past Psychological History: Anxiety, Depression, Panic Disorder Additional Psychological History / Comment(s): boarderline personality disorder Smoking Status: Never smoker Past Alcohol Use History: None Reported Past Drug Use History: None Reported - Past Family History Son(s) Additional Family Medical History / Comment(s): She has 2 sons with no major medical problems. Patient does not have any daughters. Mother Additional Family Medical History / Comment(s): Mother at age 80 from renal failure. Father Additional Family Medical History / Comment(s): Father at age 67 with history of [place] and stroke Brother(s) Family Medical History: Cancer Additional Family Medical History / Comment(s): She has total of 5 brothers and all had history of coronary artery disease and CABG, hypertension, hyperlipidemia, diabetes. Sister(s) Family Medical History: Cancer Additional Family Medical History / Comment(s): one sister of colon cancer, second sister had ovarian cancer Medications and Allergies Home Medications Medication Instructions Recorded Confirmed Type Fish Oil/Dha/Epa [Fish Oil 1,200 1 cap PO DAILY 04/22/16 04/27/20 History mg Fish Oil] Atorvastatin [Lipitor] 80 mg PO HS 01/22/18 04/27/20 History Levothyroxine Sodium 150 mcg PO DAILY 01/22/18 04/27/20 History Albuterol Sulfate [Ventolin HFA] 2 puff INHALATION RT-Q4H PRN 10/10/19 04/27/20 History Melatonin 10 mg PO HS PRN 10/10/19 04/27/20 History Sertraline [Zoloft] 100 mg PO DAILY 10/10/19 04/27/20 History lamoTRIgine 100 mg PO HS 10/10/19 04/27/20 History Aspirin 81 mg PO DAILY chew 10/15/19 04/27/20 Rx Ferrous Sulfate [Feosol] 325 mg PO DAILY 04/27/20 04/27/20 History Fluticasone Nasal [place] [Flonase 2 spray EA NOSTRIL DAILY PRN 04/27/20 04/27/20 History Nasal [place]] Fluticasone/Salmeterol [Advair 1 puff INHALATION RT-BID 04/27/20 04/27/20 Hi story 250-50 Diskus] Furosemide [Lasix] 40 mg PO DAILY 04/27/20 04/27/20 History [place] Carbonate [[place] 300 mg PO HS 04/27/20 04/27/20 History Carbonate ER] Magnesium Oxide 400 mg PO DAILY 04/27/20 04/27/20 History Multivitamins, Thera [Multivitamin 1 tab PO DAILY 04/27/20 04/27/20 History (formulary)] Nystatin 100,000Unit/gm Cream 1 applic TOPICAL BID 04/27/20 04/27/20 History [Mycostatin Cream] Potassium Chloride ER [K-Dur 10] 10 meq PO DAILY 04/27/20 04/27/20 History Valsartan 80 mg PO DAILY 04/27/20 04/27/20 History metFORMIN HCL [Glucophage] 500 mg PO BID 04/27/20 04/27/20 History Allergies Allergy/AdvReac Type Severity Reaction Status Date / Time sulfamethoxazole Allergy Unknown Rash/Hives, Verified 04/27/20 22:16 [From Bactrim] SOB trimethoprim [From Bactrim] Allergy Unknown Rash/Hives, Verified 04/27/20 22:16 SOB Physical Exam Vitals: Vital Signs Temp Pulse Pulse Resp BP BP Pulse Ox 04/28/20 12:51 98.5 F 60 16 128/64 98 04/28/20 08:56 97.8 F 53 L 16 102/65 99 04/28/20 06:59 65 20 126/68 100 04/28/20 03:35 67 20 130/67 99 04/28/20 01:15 62 20 131/65 99 04/27/20 22:16 66 20 108/63 99 04/27/20 21:04 71 20 111/62 98 04/27/20 19:22 98.0 F 69 20 102/61 97 Intake and Output 04/27/20 04/28/20 04/28/20 22:59 06:59 14:59 Intake Total 0 Balance 0 Intake: Oral 0 Other: # Voids 1 Weight 152.407 kg 152.407 kg General appearance: Present: average body habitus, cooperative, no acute distress Eyes: Present: anicteric sclerae, EOMI, PERRLA, normal appearance ENT: Present: hearing grossly normal, normal oropharynx Ears: bilateral: normal Neck: Present: normal ROM. Absent: lymphadenopathy, rigidity, thyromegaly Carotids: negative: bruit present Thyroid: bilateral: normal size, negative: enlarged, nodule Respiratory: bilateral: CTA, negative: rales, rhonchi, wheezing - Cardiovascular Rhythm: regular Heart sounds: normal: S1, S2 Abnormal Heart Sounds: Absent: systolic murmur, diastolic murmur General gastrointestinal: Present: normal bowel sounds, soft. Absent: distended, organomegaly, tenderness Genitourinary Comment(s): deferred Integumentary: Present: normal turgor. Absent: jaundiced, rash, ulcer Neurologic: Present: CNII-XII intact. Absent: focal deficits Musculoskeletal: Markedly decreased range of motion of left upper extremity due to pain Psychiatric: Present: A&O x's 3, appropriate affect, intact judgment & insight Results CBC & Chem 7: 04/28/20 02:48 04/28/20 02:48 Labs: Abnormal Lab Results - Last 24 Hours (Table) 04/27/20 04/27/20 04/28/20 Range/Units 19:48 19:48 02:48 WBC 10.8 H 11.1 H (3.8-10.6) k/uL Neutrophils # 7.8 H (1.3-7.7) k/uL BUN 19 H (7-17) mg/dL Glucose 140 H (74-99) mg/dL POC Glucose (mg/dL) (75-99) mg/dL 04/28/20 04/28/20 Range/Units 02:48 11:29 WBC (3.8-10.6) k/uL Neutrophils # (1.3-7.7) k/uL BUN 19 H (7-17) mg/dL Glucose 142 H (74-99) mg/dL POC Glucose (mg/dL) 144 H (75-99) mg/dL Thrombosis Risk Factor Assmnt - Choose All That Apply Any of the Below Risk Factors Present?: Yes Each Factor Represents 1 point: Obesity (BMI >25), Swollen legs (current) Other Risk Factors: Yes Each Risk Factor Represents 2 Points: Age 61-74 years Other congenital or acquired thrombophilia - If yes, enter type in comment: No Thrombosis Risk Factor Assessment Total Risk Factor Score: 4 Thrombosis Risk Factor Assessment Level: Moderate Risk Assessment and Plan Assessment: 1. Chest pain - Patient is admitted to telemetry; EKG and troponin is being monitored; patient had cardiac catheterization done in September 2019 which revealed normal coronary arteries - Cardiology on board and recommending 2-D echo; no further cardiac workup at this time 2. Left arm pain/weakness; we will consult neurology and orthopedic service 3. COPD; not in exacerbation; Symbicort inhaler 2 puffs twice a day 4. Hyperlipidemia; Lipitor 40 mg by mouth daily at bedtime 5. Diabetes mellitus2; patient takes metformin 500 mg twice a day; we will hold off on metformin and monitor Accu-Cheks every before meals and at bedtime with insulin sliding scale 6. Hypothyroidism; levothyroxin 150 MCG daily 7. Hypertension; losartan 80 mg daily 7. Morbid obesity; counseling done on need for weight reduction DVT prophylaxis; SCDs CODE STATUS; full code
[2020-04-28] MEDS: lamoTRIgine 100 MG TAB PO SCH (20:05)
[2020-04-28] MEDS: LITHIUM CARBONATE 300 MG CAP PO SCH (20:52)
[2020-04-29] MEDS: HYDROcodone/APAP 5-325MG 1 EACH TAB PO PRN ×2 (01:01→08:01)
[2020-04-29] MEDS: LEVOTHYROXINE 75 MCG TAB PO SCH (05:59)
[2020-04-29 07:16] LABS: African American GFR (CKD) >90 (>60 ml/min/1.73 sqM); Anion Gap 7 mmol/L; Blood Urea Nitrogen 20 mg/dL (7-17); Carbon Dioxide 26 mmol/L (22-30); Chloride 105 mmol/L (98-107); Glucose 135 mg/dL (74-99); Non-African American GFR(CKD) 79 (>60 ml/min/1.73 sqM); Potassium 3.8 mmol/L (3.5-5.1); Sodium 138 mmol/L (137-145)
[2020-04-29 07:36] LABS: Glucose,Whole Blood 145 mg/dL (75-99)
[2020-04-29] MEDS: SYMBICORT 80-4.5 MCG INHALER INHALATION SCH ×2 (07:40→16:27)
[2020-04-29] MEDS: ASPIRIN 81 MG PO SCH (07:52)
[2020-04-29] MEDS: FERROUS SULFATE 325 MG TAB PO SCH (07:52)
[2020-04-29] MEDS: MULTIVITAMINS, THERA 1 EACH TAB PO SCH (07:52)
[2020-04-29] MEDS: POTASSIUM CHLORIDE ER 10 MEQ TAB.ER.PRT PO SCH (07:53)
[2020-04-29] MEDS: VALSARTAN 80 MG TAB PO SCH (07:53)
[2020-04-29] MEDS: FUROSEMIDE 40 MG TAB PO SCH (07:53)
[2020-04-29] MEDS: NYSTATIN 100,000UNIT/GM CREAM 30 GM TUBE TOPICAL SCH ×3 (07:53→21:44)
[2020-04-29 12:13] LABS: Basophils # (A) 0.08 X 10*3/uL (0.00-0.10); Basophils % (A) 0.8 %; Eosinophils # (A) 0.22 X 10*3/uL (0.04-0.35); Eosinophils % (A) 2.3 %; HCT 37.7 % (37.2-46.3); HGB 11.4 g/dL (12.0-15.0); Lymphocytes # (A) 2.69 X 10*3/uL (0.90-5.00); Lymphocytes % (A) 27.6 %; MCHC 30.2 g/dL (32.0-37.0); MCV 85.9 fL (80.0-97.0); Mean Platelet Volume 11.7 fL (9.5-12.2); Monocytes # (A) 0.89 X 10*3/uL (0.20-1.00); Monocytes % (A) 9.1 %; Neutrophils # (A) 5.79 X 10*3/uL (1.80-7.70); Neutrophils % (A) 59.5 %; Platelet Count 302 X 10*3/uL (140-440); RBC 4.39 X 10*6/uL (4.10-5.20); WBC 9.74 X 10*3/uL (4.50-10.00)
[2020-04-29 12:21] LABS: Glucose,Whole Blood 150 mg/dL (75-99)
--- NOTE | 2020-04-29 13:17 | P.CNNES ---
History of Present Illness Consult date: 04/29/20 Requesting physician: Jaison Shin Reason for Consult: left arm weakness History of Present Illness: This is a 64-year-old woman with medical history of vertigo, diabetes, dyslipidemia, sleep apnea, obesity that presented to the emergency department on 04/27/2020 the for chest jose alberto. The patient stated she has substernal chest pain radiating to the left arm since Friday she also having palpitation nausea and generalized body ache. She is still complaining of severe left arm pain since Friday as well as some moderate left shoulder pain she said that that she was having left neck pain a couple days ago but currently the it is very mild but denies any left left neck pain rating down according to her. According to the numbness over the left side she said that she has numbness over the left side and she feels oscillate got worse but denies of any facial numbness. Denies of visual disturbance, difficulty getting her words out. Currently her major problem right now is left shoulder and arm pain mostly into the left arm pain. She uses a walker at home as well as a cane. During this hospital stay the patient EKG is reported as normal sinus rhythm. Low voltage QRS. Nonspecific T wave abnormality. Abnormal EKG. She said that she follows up with Dr. Massey (Neurologist) regarding her dizziness as well as she gets cervical epidural injection and the last time she got her was in 2019 but could not tell me exactly when. She was told that she has diabetic peripheral neuropathy and has carpal tunnel syndrome. She said that the Dr. Massey office and she had MRI the brain and not sure of result. She is also pending to have EEG for dizziness. She said that she had gabapentin in the past but she didn't have a good reaction to it. The patient home medication is aspirin 81 mg, Lipitor 80 mg. Patient was evaluated by Dr. Clifford on 10/12/2023 vertigo and he felt was due to a peripheral vertigo. Patient had a CT of the head and it's reported as negative CT of the head during that time. No intracranial hemorrhage, midline shift or mass effect. Carotid duplex is reported as there is antegrade flow in the vertebral arteries. An 2-D echo around that time shows overall left ventricle systolic function is low with ejection fraction 50-25%. Mild concentric left ventricular hypertrophy. Left atrial size is normal. Last TSH was on 12/27/2019 and that was 3.28 which is normal. Last vitamin B12 is 370 which is low normal and that was in 10/12/2019. Folate level was 7.6 which is normal Hemoglobin A1c last was 7.0 on 10/11/2019. Review of Systems Review of system: The 12 point system was reviewed and apparent positive and negative per HPI. 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 Past Anesthesia/Blood Transfusion Reactions: Family History of Problems w/ Anesthesia, Motion Sickness Additional Past Anesthesia/Blood Transfusion Reaction / Comment(s): clausterphobia. pt's sister had diff breathing from anesthesia Past Psychological History: Anxiety, Depression, Panic Disorder Additional Psychological History / Comment(s): boarderline personality disorder Smoking Status: Never smoker Past Alcohol Use History: None Reported Past Drug Use History: None Reported - Past Family History Son(s) Additional Family Medical History / Comment(s): She has 2 sons with no major medical problems. Patient does not have any daughters. Mother Additional Family Medical History / Comment(s): Mother at age 80 from renal failure. Father Additional Family Medical History / Comment(s): Father at age 67 with history of [place] and stroke Brother(s) Family Medical History: Cancer Additional Family Medical History / Comment(s): She has total of 5 brothers and all had history of coronary artery disease and CABG, hypertension, hyperlipidemia, diabetes. Sister(s) Family Medical History: Cancer Additional Family Medical History / Comment(s): one sister of colon cancer, second sister had ovarian cancer Medications and Allergies Home Medications Medication Instructions Recorded Confirmed Type Fish Oil/Dha/Epa [Fish Oil 1,200 1 cap PO DAILY 04/22/16 04/27/20 History mg Fish Oil] Atorvastatin [Lipitor] 80 mg PO HS 01/22/18 04/27/20 History Levothyroxine Sodium 150 mcg PO DAILY 01/22/18 04/27/20 History Albuterol Sulfate [Ventolin HFA] 2 puff INHALATION RT-Q4H PRN 10/10/19 04/27/20 History Melatonin 10 mg PO HS PRN 10/10/19 04/27/20 History Sertraline [Zoloft] 100 mg PO DAILY 10/10/19 04/27/20 History lamoTRIgine 100 mg PO HS 10/10/19 04/27/20 History Aspirin 81 mg PO DAILY chew 10/15/19 04/27/20 Rx Ferrous Sulfate [Feosol] 325 mg PO DAILY 04/27/20 04/27/20 History Fluticasone Nasal [place] [Flonase 2 spray EA NOSTRIL DAILY PRN 04/27/20 04/27/20 History Nasal [place]] Fluticasone/Salmeterol [Advair 1 puff INHALATION RT-BID 04/27/20 04/27/20 History 250-50 Diskus] Furosemide [Lasix] 40 mg PO DAILY 04/27/20 04/27/20 History [place] Carbonate [[place] 300 mg PO HS 04/27/20 04/27/20 History Carbonate ER] Magnesium Oxide 400 mg PO DAILY 04/27/20 04/27/20 History Multivitamins, Thera [Multivitamin 1 tab PO DAILY 04/27/20 04/27/20 History (formulary)] Nystatin 100,000Unit/gm Cream 1 applic TOPICAL BID 04/27/20 04/27/20 History [Mycostatin Cream] Potassium Chloride ER [K-Dur 10] 10 meq PO DAILY 04/27/20 04/27/20 History Valsartan 80 mg PO DAILY 04/27/20 04/27/20 History metFORMIN HCL [Glucophage] 500 mg PO BID 04/27/20 04/27/20 History Allergies Allergy/AdvReac Type Severity Reaction Status Date / Time sulfamethoxazole Allergy Unknown Rash/Hives, Verified 04/27/20 22:16 [From Bactrim] SOB trimethoprim [From Bactrim] Allergy Unknown Rash/Hives, Verified 04/27/20 22:16 SOB Physical Examination - Vital Signs Vital Signs: Vital Signs Temp Pulse Resp BP Pulse Ox 04/29/20 08:00 63 18 04/29/20 07:56 97.5 F L 63 18 116/69 97 04/29/20 01:04 97.8 F 79 18 113/76 97 04/28/20 19:56 97.6 F 79 16 115/68 98 04/28/20 14:00 60 16 04/28/20 12:51 98.5 F 60 16 128/64 98 Intake and Output 04/28/20 04/29/20 04/29/20 22:59 06:59 14:59 Intake Total 650 550 180 Balance 650 550 180 Intake: Oral 650 550 180 Other: Voiding Method Toilet Toilet Toilet # Voids 2 2 GENERAL: The patient is morbid obese, lying in bed and is moderate acute distress. CHEST: The heart rate is regular rate rhythm. No murmurs to auscultation. No carotid bruit bilaterally. LUNG: Clear to auscultation bilaterally no wheezing noted throughout. Not labored breathing. ABDOMEN/GI: Bowel sounds present in all 4 quadrants. No tenderness to palpation throughout. NEUROLOGICAL: Higher mental function: The patient is awake, alert, oriented to self, place and time. Patient is following commands. No aphasia and no neglect. Cranial nerves: The pupils are round, equal and reactive to light and accommodation. Visual eid are full to confrontation throughout. Extraocular movement is intact no nystagmus is noted. Facial sensation is normal to touch throughout. The facial strength is normal throughout. Hearing is normal bilaterally to hand rub. Tongue is midline and moved [id number] without any difficulty. No dysarthria is noted. Shoulder shrug is limited on the left because of the pain but has antigravity. Motor: Gait is walking with walker and making slow step without drifing of lower extremities or swaying towards one side or other (she said is walking at baseline). The strength is Limited in upper extremity because of pain while left hand is 4+ to 5- and limited to pain. Otherwise right upper extremity is 5/5. Lower extremities is 5-/5. Normal bulk. Cerebellum: Normal finger to nose over the right but limited over the left because of pain, normal heel to leong bilaterally. Sensation: Sensation is normal to touch throughout. Reflexes (right/left): 3+ throughout except ankles are 1+ bilaterally. Plantars are downgoing bilaterally. Results - Laboratory Findings CBC and BMP: 04/29/20 06:35 04/29/20 06:35 Abnormal Lab Findings: Abnormal Labs 04/27/20 04/27/20 04/28/20 19:48 19:48 02:48 WBC 10.8 H 11.1 H Hgb MCH MCHC Immature Gran # Neutrophils # 7.8 H BUN 19 H Glucose 140 H POC Glucose (mg/dL) 04/28/20 04/28/20 04/28/20 02:48 11:29 17:27 WBC Hgb MCH MCHC Immature Gran # Neutrophils # BUN 19 H Glucose 142 H POC Glucose (mg/dL) 144 H 118 H 04/29/20 04/29/20 04/29/20 06:35 06:35 07:33 WBC Hgb 11.4 L MCH 26.0 L MCHC 30.2 L Immature Gran # 0.07 H Neutrophils # BUN 20 H Glucose 135 H POC Glucose (mg/dL) 145 H Assessment and Plan Assessment: This is a 64-year-old woman with multiple medical problem that presents the on 04/27/2020 for chest pain radiating to left arm. The patient is complaining of left arm weakness and the leg weakness for last couple days. Patient had the stroke workup in September 2019 and was all negative. Left shoulder and arm pain. Patient doesn't have weakness but she has limitation of movement of the left upper extremity because of the pain. Subjective paresthesia over the left side She has epidural injection to cervical region (she stated since has neck pain in past by Dr. Massey) Diabetic peripheral neuropathy Chest pain History of vertigo Low vitamin B12 (370 which is low normal and that was in 10/12/2019) Diabetes mellitus Dyslipidemia Sleep apnea Morbid Obesity Plan: I ordered a CT of the neck and x-ray of the left shoulder. She's currently on aspirin 81 mg and Lipitor 80mg qhs. PT and OT are consulted. I started the patient on the vitamin B12 at thousand micrograms daily I started the patient on Lyrica 25mg 1 tab bid (started on low dose since could not tolerate Gabapentin in the past) and possibly consider titrating up if needed. I will repeat the vitamin B12 and folate level. Hemoglobin A1c last was 7.0 on 10/11/2019 and no need to repeat it. Orthopedic team is consulted for the left arm and shoulder pain. Patient is on Lamictal 100 mg daily at bedtime as well as she is on lithium for her depression and other psychiatric issues 2-D echo is ordered by the cardiology team and is pending. Patient follows up with Dr. Araiza as an outpatient for her dizziness as well as gets the cervical epidural injection and has workup in this facility (she said she had MRI Brain but unsure of result). Recommend EMG with nerve conduction study as an outpatient to rule out neuropathy versus radiculopathy. We'll defer the rest of the medical management to the primary team. The plan is discussed with the patient's nurse. Thank you for the consultation. Clinton Rivera M.D. Neuro-hospitalist Time with Patient: Greater than 30
[2020-04-29] MEDS: CYANOCOBALAMIN 500 MCG TAB PO SCH (13:44)
[2020-04-29] MEDS: PREGABALIN 25 MG CAP PO SCH ×2 (14:10→21:45)
--- NOTE | 2020-04-29 14:11 | P.CNOR ---
History of Present Illness - [facility] Consult date: 04/29/20 Consult reason: other (Left arm/shoulder pain) History of present illness: Patient is a 64-year-old female who was admitted to [facility] due to chest pain and left-sided arm pain, numbness and weakness. Cardiac workup has essentially been negative at this time, please see their notes for further detail. She continues to complain of left upper extremity pain, weakness, numbness and tingling. Neurology has been consulted and our orthopedic team has been consult. Patient has multiple medical comorbidities and achieving a adequate history including timeline is very difficult. She denies any recent trauma to the left upper extremity, this including falls. She denies any change in activity with regards to the left upper extremity. She denies any changes in medications. She is a morbidly obese female who utilizes a cane with ambulation. She lives alone in an apartment. She does not drive. Upon admission to the hospital, she states that the pain, weakness along with numbness and tingling started on 04/24/2020. Along with the symptoms affecting her left upper extremity, she also noticed a whole body fatigue and weakness along with numbness and tingling. She has a remote history of peripheral neuropathy due to her diabetes of bilateral lower extremities. She also states she has constant dizziness. When reviewing neurology's notes,it was discussed that the patient has had an MRI of her brain along with epidural injections of the cervical spine done by Dr. Massey in [place]. The exact timeline of these tests and injections is indeterminate. Patient did try Tylenol and Motrin at home for the symptoms involving the left upper extremity. There was no obvious improvement with this. She is taking [place] in the hospital which has seemed to help a little bit. Neurology has added Lyrica. An order has been placed for a CT without contrast of the cer vical spine and a left shoulder x-ray. Patient denies any previous orthopedic surgery involving her cervical spine or left upper extremity. Patient denies any severe weakness, pain or numbness and tingling currently in the right upper extremity. She has chronic weakness in the bilateral lower extremities. She admits to numbness and tingling of bilateral lower extremities, mainly in the feet and ankle region. Like stated above she has a remote history of peripheral neuropathy. She denies any loss of bowel or bladder function. Review of Systems Constitutional: Reports as per HPI Past Medical History Past Medical History: Asthma, Chest Pain / Angina, Diabetes Mellitus, GERD/Reflux, Hyperlipidemia, Hypertension, Sleep Apnea/CPAP/BIPAP, Thyroid Disorder Additional Past Medical History / Comment(s): freddy-not using her cpap machine anemia, chest pain "from anxiety", sometimes low BP, occ palpitations, diverticulosis, kidney stone, "leaky heart valve".fall in broke rib on rt side, 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 Past Anesthesia/Blood Transfusion Reactions: Family History of Problems w/ Anesthesia, Motion Sickness Additional Past Anesthesia/Blood Transfusion Reaction / Comm: clausterphobia. pt's sister had diff breathing from anesthesia Past Psychological History: Anxiety, Depression, Panic Disorder Additional Psychological History / Comment(s): boarderline personality disorder Smoking Status: Never smoker Past Alcohol Use History: None Reported Past Drug Use History: None Reported - Past Family History Son(s) Additional Family Medical History / Comment(s): She has 2 sons with no major medical problems. Patient does not have any daughters. Mother Additional Family Medical History / Comment(s): Mother at age 80 from renal failure. Father Additional Family Medical History / Comment(s): Father at age 67 with history of MD and stroke Brother(s) Family Medical History: Cancer Additional Family Medical History / Comment(s): She has total of 5 brothers and all had history of coronary artery disease and CABG, hypertension, hyperlipidemia, diabetes. Sister(s) Family Medical History: Cancer Additional Family Medical History / Comment(s): one sister of colon cancer, second sister had ovarian cancer Medications and Allergies Home Medications Medication Instructions Recorded Confirmed Type Fish Oil/Dha/Epa [Fish Oil 1,200 1 cap PO DAILY 04/22/16 04/27/20 History mg Fish Oil] Atorvastatin [Lipitor] 80 mg PO HS 01/22/18 04/27/20 History Levothyroxine Sodium 150 mcg PO DAILY 01/22/18 04/27/20 History Albuterol Sulfate [Ventolin HFA] 2 puff INHALATION RT-Q4H PRN 10/10/19 04/27/20 History Melatonin 10 mg PO HS PRN 10/10/19 04/27/20 History Sertraline [Zoloft] 100 mg PO DAILY 10/10/19 04/27/20 History lamoTRIgine 100 mg PO HS 10/10/19 04/27/20 History Aspirin 81 mg PO DAILY chew 10/15/19 04/27/20 Rx Ferrous Sulfate [Feosol] 325 mg PO DAILY 04/27/20 04/27/20 History Fluticasone Nasal [place] [Flonase 2 spray EA NOSTRIL DAILY PRN 04/27/20 04/27/20 History Nasal [place]] Fluticasone/Salmeterol [Advair 1 puff INHALATION RT-BID 04/27/20 04/27/20 History 250-50 Diskus] Furosemide [Lasix] 40 mg PO DAILY 04/27/20 04/27/20 History [place] Carbonate [[place] 300 mg PO HS 04/27/20 04/27/20 History Carbonate ER] Magnesium Oxide 400 mg PO DAILY 04/27/20 04/27/20 History Multivitamins, Thera [Multivitamin 1 tab PO DAILY 04/27/20 04/27/20 History (formulary)] Nystatin 100,000Unit/gm Cream 1 applic TOPICAL BID 04/27/20 04/27/20 History [Mycostatin Cream] Potassium Chloride ER [K-Dur 10] 10 meq PO DAILY 04/27/20 04/27/20 History Valsartan 80 mg PO DAILY 04/27/20 04/27/20 History metFORMIN HCL [Glucophage] 500 mg PO BID 04/27/20 04/27/20 History Allergies Allergy/AdvReac Type Severity Reaction Status Date / Time sulfamethoxazole Allergy Unknown Rash/Hives, Verified 04/27/20 22:16 [From Bactrim] SOB trimethoprim [From Bactrim] Allergy Unknown Rash/Hives, Verified 04/27/20 22:16 SOB Physical Examination Gen: AOx3, NAD VSS stable at this time Integument: No obvious open lesions or sores, areas of erythema, ecchymosis or soft tissue swelling appreciated about the cervical, thoracic, lumbar region, and left upper extremity Palpation: She is nontender with palpation midline and in the paraspinal region of the cervical, thoracic or lumbar region. There is no obvious step-off appreciated ROM: Forward elevation, shoulder abduction, elbow flexion, elbow extension, wrist extension, wrist flexion, intrinsics are all intact of the right upper extremity Active motion of major muscle groups of the left upper extremity are severely difficult due to pain. She is able to extend and flex the wrist and elbow along with make a fist minimal difficulty. Most discomfort is appreciated with attempted forward elevation and abduction of the left shoulder Patient is able to flex, extend, laterally rotate left and right cervical spine with minimal difficulty, this reproduces no significant worsening symptoms of the left upper extremity Hip flexion bilaterally, knee flexion and extension bilaterally, plantar flexion, dorsiflexion, EHL, FHL are all intact Sensory Exam: Senory exam to light touch is intact C5-T1 Senosry exam to light touch is intact L2-S1 Motor: 5-5 strength is appreciated with shoulder abduction, forward elevation, elbow extension, elbow flexion, wrist extension, wrist flexion, central melt specialist strength the right upper extremity Difficult to grade strength of the left upper extremity due to pain reproduced on exam Reflexes: Negative Sawyer's bilaterally Vascular: Radial/ulnar pulses are 2+ bilateral upper extremities Results - Labs Labs: Abnormal Lab Results - Last 24 Hours (Table) 04/28/20 04/29/20 04/29/20 Range/Units 17:27 06:35 06:35 Hgb 11.4 L (12.0-15.0) g/dL MCH 26.0 L (27.0-32.0) pg MCHC 30.2 L (32.0-37.0) g/dL Immature Gran # 0.07 H (0.00-0.04) X 10*3/uL BUN 20 H (7-17) mg/dL Glucose 135 H (74-99) mg/dL POC Glucose (mg/dL) 118 H (75-99) mg/dL 04/29/20 04/29/20 Range/Units 07:33 12:19 Hgb (12.0-15.0) g/dL MCH (27.0-32.0) pg MCHC (32.0-37.0) g/dL Immature Gran # (0.00-0.04) X 10*3/uL BUN (7-17) mg/dL Glucose (74-99) mg/dL POC Glucose (mg/dL) 145 H 150 H (75-99) mg/dL H & H 04/27/20 04/28/20 04/29/20 Range/Units 19:48 02:48 06:35 Hgb 12.3 11.8 11.4 L (11.4-16.0) gm/dL Hct 38.1 36.3 37.7 (34.0-46.0) % Coagulation 04/27/20 Range/Units 19:48 INR 1.0 (<1.2) Result Diagrams: 04/29/20 06:35 04/29/20 06:35 Assessment and Plan Assessment: Left upper extremity pain Left upper extremity weakness Left upper extremity numbness/tingling Generalized fatigue/weakness Super morbid obesity Multiple medical comorbidities Plan: I was able to discuss the case with my attending Dr. Nair and Dr. Cady chavira. We will await x-rays and CT results of both the shoulder and cervical spine. Pain control, continue the [place] as needed. Neurology has added Lyrica. I will add Flexeril along with Decadron Due to the past number of symptoms that this patient is demonstrating, difficult to determine an obvious etiology at this time. Appreciate internal medicine and neurology's recommendations. Pending the results of her cervical spine CT and shoulder x-rays, we will be able to provide more accurate input for treatment. GI and DVT prophylaxis per primary medical service No emergent orthopedic surgical intervention recommended at this time we'll continue to follow patient
[2020-04-29] MEDS ORDERED: CYCLOBENZAPRINE 10 MG TAB PO PRN (14:25)
--- NOTE | 2020-04-29 15:31 | XR ---
Left shoulder HISTORY: Pain 3 views of the left shoulder There is mild arthropathy of the acromioclavicular joint. There is overlying artifact present. Left l sabrina apex as visualized is normal. Bone mineralization and alignment are maintained. No fracture or di slocation. Aorta shows calcification. Distal acromion appears downturned. IMPRESSION: Correlate for possible impingement.
--- NOTE | 2020-04-29 15:41 | CT ---
EXAMINATION TYPE: CT cervical spine wo con DATE OF EXAM: 04/29/2020 COMPARISON: Cervical spine plain film 10/12/2019 HISTORY: Numbness and tingling down left arm and whole body. CT DLP: 774.2 mGycm Automated exposure control for dose reduction was used. TECHNIQUE: CT scan of the cervical spine is obtained without contrast, axial images are obtained, sagittal and c oronal reformatted images are also reviewed. FINDINGS: There is multilevel spondylosis. Anterolisthesis grade 1 C3-4 is a stable finding. Loss of disc heigh t present at C4-5, C5-6, C6-7 and C7-T1. Arthropathy change present at the atlantoaxial joint. Cervic al spine is visualized in its entirety from C1 through upper thoracic levels, demonstrates satisfacto ry alignment without evidence of acute fracture or dislocation. Prevertebral soft tissue appears wit hin normal limits. At C5-6 there is some left-sided foraminal encroachment due to uncovertebral joint hypertrophy, unique inal encroachment also present at C6-7 on the right greater than left and also there is posterior ext ension endplate disc complexes at C6-7 causing some anterior mass effect on the thecal sac. There is limited evaluation for disc herniation. Multilevel facet arthropathy changes are present. IMPRESSION: Degenerative disc disease, facet arthropathy, foraminal encroachment
[2020-04-29] MEDS: ALBUTEROL NEBULIZED 2.5 MG/3 ML INHALATION PRN (16:08)
[2020-04-29 17:28] LABS: Glucose,Whole Blood 138 mg/dL (75-99)
[2020-04-29] MEDS: DEXAMETHASONE SOD PHOSPHATE 4 MG/ML 1 ML VIAL IM SCH ×2 (17:43→21:44)
--- NOTE | 2020-04-29 18:44 | P.PN ---
Subjective Progress Note Date: 04/29/20 Principal diagnosis: Chest pain Left arm pain and numbness 64-year-old female past history of diabetes, hypertension, sleep apnea, morbid obesity who presents to the emergency department with reported chest pain. Patient states that she has had substernal chest pain which radiates to her left arm since Friday. She complains of associated nausea, palpitations and generalized body aches. She did see her primary care doctor in office yesterday who placed a heart monitor on her. States that her symptoms got progressively worse today and therefore she called her primary care doctor. They did recommend that she go into the emergency room for evaluation. She denies previous history of cardiac disease. Did have a cardiac catheterization last year. Denies history of DVT or PE. No current lower externally swelling. Denies cough, fevers or chills. Patient was given aspirin and nitro en route to the hospital and does report to some improvement in her symptoms. No other alleviating, precipitating or modifying factors 2-lead EKG was performed. Laboratory studies were conducted in the patient for chest x-ray. Laboratory studies reveal a negative troponin. Chest x-ray demonstrates no acute process. While in the hospital patient has been complaining of recent onset left arm pain and weakness 04/29/2020 She does seen and evaluated in room at bedside; continues to complain of left arm pain and numbness Patient has been evaluated by neurology; CT of neck along with x-ray of left shoulder is ordered; patient remains on aspirin and Lipitor; she has been started on vitamin B12 and Lyrica; repeat vitamin B12 and folate levels are orde red; neurology recommending EMG with NCS as outpatient to rule out neuropathy versus radiculopathy Orthopedic surgery recommending pain controlled with [place]; Flexeril and Decadron as ordered; rest of recommendations after imaging is available Objective - Vital Signs Vital signs: Vital Signs Temp 99.1 F 04/29/20 15:00 Pulse 70 04/29/20 16:21 Resp 19 04/29/20 15:00 BP 86/43 04/29/20 15:00 Pulse Ox 94 L 04/29/20 15:00 Intake & Output 04/28/20 04/29/20 04/29/20 18:59 06:59 18:59 Intake Total 1080 1200 420 Balance 1080 1200 420 Weight 152.407 kg Intake: Oral 1080 1200 420 Other: Voiding Method Toilet Toilet Toilet # Voids 2 2 3 - Exam - Constitutional General appearance: Present: average body habitus, cooperative, no acute distress - EENT Eyes: Present: anicteric sclerae, EOMI, PERRLA, normal appearance ENT: Present: hearing grossly normal, normal oropharynx Ears: bilateral: normal - Neck Neck: Present: normal ROM. Absent: lymphadenopathy, rigidity, thyromegaly Carotids: negative: bruit present Thyroid: bilateral: normal size, negative: enlarged, nodule - Respiratory Respiratory: bilateral: CTA, negative: rales, rhonchi, wheezing - Cardiovascular Rhythm: regular Heart sounds: normal: S1, S2 Abnormal Heart Sounds: Absent: systolic murmur, diastolic murmur - Gastrointestinal General gastrointestinal: Present: normal bowel sounds, soft. Absent: distended, organomegaly, tenderness - Genitourinary Genitourinary Comment(s): deferred - Integumentary Integumentary: Present: normal turgor. Absent: jaundiced, rash, ulcer - Neurologic Neurologic: Present: CNII-XII intact. Absent: focal deficits - Musculoskeletal Musculoskeletal: Present: gait normal, strength equal bilaterally - Psychiatric Psychiatric: Present: A&O x's 3, appropriate affect, intact judgment & insight - Labs CBC & Chem 7: 04/29/20 06:35 04/29/20 06:35 Labs: Abnormal Lab Results - Last 24 Hours (Table) 04/29/20 04/29/20 04/29/20 Range/Units 06:35 06:35 07:33 Hgb 11.4 L (12.0-15.0) g/dL MCH 26.0 L (27.0-32.0) pg MCHC 30.2 L (32.0-37.0) g/dL Immature Gran # 0.07 H (0.00-0.04) X 10*3/uL BUN 20 H (7-17) mg/dL Glucose 135 H (74-99) mg/dL POC Glucose (mg/dL) 145 H (75-99) mg/dL 04/29/20 04/29/20 Range/Units 12:19 17:26 Hgb (12.0-15.0) g/dL MCH (27.0-32.0) pg MCHC (32.0-37.0) g/dL Immature Gran # (0.00-0.04) X 10*3/uL BUN (7-17) mg/dL Glucose (74-99) mg/dL POC Glucose (mg/dL) 150 H 138 H (75-99) mg/dL Assessment and Plan Assessment: 1. Chest pain - Patient is admitted to telemetry; EKG and troponin is being monitored; patient had cardiac catheterization done in September 2019 which revealed normal coronary arteries - Cardiology on board and recommending 2-D echo; no further cardiac workup at this time 2. Left arm pain/weakness; we will consult neurology and orthopedic service 3. COPD; not in exacerbation; Symbicort inhaler 2 puffs twice a day 4. Hyperlipidemia; Lipitor 40 mg by mouth daily at bedtime 5. Diabetes mellitus2; patient takes metformin 500 mg twice a day; we will hold off on metformin and monitor Accu-Cheks every before meals and at bedtime with insulin sliding scale 6. Hypothyroidism; levothyroxin 150 MCG daily 7. Hypertension; losartan 80 mg daily 7. Morbid obesity; counseling done on need for weight reduction DVT prophylaxis; SCDs CODE STATUS; full code
[2020-04-29 19:47] LABS: Glucose,Whole Blood 216 mg/dL (75-99)
[2020-04-29] MEDS: ATORVASTATIN 80 MG TAB PO SCH (21:45)
[2020-04-29] MEDS: SERTRALINE 100 MG TAB PO SCH (21:45)
[2020-04-29] MEDS: lamoTRIgine 100 MG TAB PO SCH (21:45)
[2020-04-29] MEDS: LITHIUM CARBONATE 300 MG CAP PO SCH (21:45)
[2020-04-30] MEDS: DEXAMETHASONE SOD PHOSPHATE 4 MG/ML 1 ML VIAL IM SCH ×4 (02:16→17:53)
[2020-04-30] MEDS: LEVOTHYROXINE 75 MCG TAB PO SCH (05:30)
[2020-04-30 06:52] LABS: Glucose,Whole Blood 203 mg/dL (75-99)
[2020-04-30] MEDS: FERROUS SULFATE 325 MG TAB PO SCH (08:46)
[2020-04-30] MEDS: PREGABALIN 25 MG CAP PO SCH ×2 (08:46→20:35)
[2020-04-30] MEDS: CYANOCOBALAMIN 500 MCG TAB PO SCH (08:46)
[2020-04-30] MEDS: MULTIVITAMINS, THERA 1 EACH TAB PO SCH (08:46)
[2020-04-30] MEDS: FUROSEMIDE 40 MG TAB PO SCH (08:46)
[2020-04-30] MEDS: VALSARTAN 80 MG TAB PO SCH (08:46)
[2020-04-30] MEDS: ASPIRIN 81 MG PO SCH (08:46)
[2020-04-30] MEDS: POTASSIUM CHLORIDE ER 10 MEQ TAB.ER.PRT PO SCH (08:46)
[2020-04-30] MEDS: NYSTATIN 100,000UNIT/GM CREAM 30 GM TUBE TOPICAL SCH ×2 (08:47→20:37)
[2020-04-30] MEDS: HYDROcodone/APAP 5-325MG 1 EACH TAB PO PRN ×3 (08:50→20:35)
--- NOTE | 2020-04-30 11:34 | P.PN ---
Subjective Progress Note Date: 04/30/20 Patient was seen at bedside and she said she feels the same today compared to yesterday. He denies any new neurological problems. Objective - Vital Signs Vital signs: Vital Signs Temp 98 F 04/30/20 07:00 Pulse 68 04/30/20 07:00 Resp 16 04/30/20 07:00 BP 135/74 04/30/20 07:00 Pulse Ox 95 04/30/20 07:00 Intake & Output 04/29/20 04/30/20 04/30/20 18:59 06:59 18:59 Intake Total 660 200 Balance 660 200 Intake: Oral 660 200 Other: Voiding Method Toilet Toilet Toilet # Voids 3 1 - Exam GENERAL: The patient is morbid obese, lying in bed and is moderate acute distress. NEUROLOGICAL: Higher mental function: The patient is awake, alert, oriented to self, place and time. Patient is following commands. No aphasia and no neglect. Cranial nerves: The pupils are round, equal and reactive to light and accommodation. Visual eid are full to confrontation throughout. Extraocular movement is intact no nystagmus is noted. Facial sensation is normal to touch throughout. The facial strength is normal throughout. Hearing is normal bila terally to hand rub. Tongue is midline and moved [id number] without any difficulty. No dysarthria is noted. Shoulder shrug is limited on the left because of the pain but has antigravity. Motor: Gait is walking with walker and making slow step without drifing of lower extremities or swaying towards one side or other (she said is walking at baseline). The strength is Limited in upper extremity because of pain while left hand is 4+ to 5- and limited to pain. Otherwise right upper extremity is 5/5. Lower extremities is 5-/5. Normal bulk. Cerebellum: Normal finger to nose over the right but limited over the left because of pain, normal heel to leong bilaterally. Sensation: Sensation is normal to touch throughout. Reflexes (right/left): 3+ throughout except ankles are 1+ bilaterally. Plantars are downgoing bilaterally. - Labs CBC & Chem 7: 04/29/20 06:35 04/29/20 06:35 Labs: Abnormal Lab Results - Last 24 Hours (Table) 04/29/20 04/29/20 04/29/20 Range/Units 06:35 12:19 17:26 Hgb 11.4 L (12.0-15.0) g/dL MCH 26.0 L (27.0-32.0) pg MCHC 30.2 L (32.0-37.0) g/dL Immature Gran # 0.07 H (0.00-0.04) X 10*3/uL POC Glucose (mg/dL) 150 H 138 H (75-99) mg/dL 04/29/20 04/30/20 Range/Units 19:44 06:51 Hgb (12.0-15.0) g/dL MCH (27.0-32.0) pg MCHC (32.0-37.0) g/dL Immature Gran # (0.00-0.04) X 10*3/uL POC Glucose (mg/dL) 216 H 203 H (75-99) mg/dL Assessment and Plan Assessment: This is a 64-year-old woman with multiple medical problem that presents the on 04/27/2020 for chest pain radiating to left arm. The patient is complaining of left arm weakness and the leg weakness for last couple days. Patient had the stroke workup in September 2019 and was all negative. Left shoulder and arm pain. Patient doesn't have weakness but she has limitation of movement of the left upper extremity because of the pain Subjective paresthesia over the left side History of Cervical spondylosis (C3-C4, C5-C6, C6-C7S) he has epidural injection to cervical region (she stated since has neck pain in past by Dr. Massey) Diabetic peripheral neuropathy Chest pain History of vertigo Low vitamin B12 (370 which is low normal and that was in 10/12/2019) Diabetes mellitus Dyslipidemia Sleep apnea Morbid Obesity Plan: CT of the neck: It is reported as degenerative disc disease, facet arthropathy, foraminal encroachment at. In the body it is mentioned there is multiple spondylosis. Anterolateral thighs is grade 1 C3 C4 1 stable finding. At C5-C6 there is some left-sided foraminal encroachment due to on come vertebral joint hypertrophy, former neural encroachment also present at C6-C7 on the right greater than the left. x-ray of the left shoulder: It is reported as correlate for possible impingement She's currently on aspirin 81 mg and Lipitor 80mg qhs. PT and OT are consulted. COntinue vitamin B12 at thousand micrograms daily Continue Lyrica 25mg 1 tab bid (started on low dose since could not tolerate Gabapentin in the past) and possibly consider titrating up if needed. Patient was started on Flexeril 10 mg 1 tablet twice a day when necessary by the orthopedic team vitamin B12: 464. RBC folate level: pending. Hemoglobin A1c last was 7.0 on 10/11/2019 and no need to repeat it. Orthopedic team are on board. Patient is on Lamictal 100 mg daily at bedtime as well as she is on lithium for her depression and other psychiatric issues 2-D echo is ordered by the cardiology team and is pending. Possibly consider ruled out DVT this was relayed that to the nurse but will defer the management to the primary team. Patient follows up with Dr. Massey as an outpatient for her dizziness as well as gets the cervical epidural injection and has workup in this facility (she said she had MRI Brain but unsure of result). Recommend EMG with nerve conduction study as an outpatient to rule out neuropathy versus radiculopathy. We'll defer the rest of the medical management to the primary team. From a neurology perspective this seems more orthopedic care because of the shoulder and arm pain than neurological workup. As stated she needs to follow-up with a neurologist for further workup and get an EMG as an outpatient. Neurology will sign off. Please reconsult as needed. The plan is discussed with the patient's nurse. Clinton Rivera M.D. Neuro-hospitalist Time with Patient: Less than 30
[2020-04-30] MEDS: SYMBICORT 80-4.5 MCG INHALER INHALATION SCH ×2 (11:40→19:48)
[2020-04-30] MEDS: ALBUTEROL NEBULIZED 2.5 MG/3 ML INHALATION PRN ×2 (11:40→16:04)
[2020-04-30 12:27] LABS: Glucose,Whole Blood 273 mg/dL (75-99)
[2020-04-30] MEDS: INSULIN ASPART (NovoLOG) 100 UNIT/ML VIAL SQ SCH ×3 (13:09→20:34)
--- NOTE | 2020-04-30 14:41 | P.PN ---
Subjective Progress Note Date: 04/30/20 Principal diagnosis: Left upper extremity pain/weakness/paresthesias Patient was examined today at bedside, she is resting in her hospital bed. She notes minimal improvement in her symptoms of the left upper extremity since yesterday. She's been utilizing the [place], Flexeril and Decadron. CT of the cervical spine and x-rays of the left shoulder were also done yesterday. Again discussing with the patient at bedside her symptoms, very difficult to gauge what is causing her more symptoms. She still complains of severe dizziness, this does not seem to be constant. She gave me many examples when she be at home walking and all of a sudden it would start. She states that she hasn't had much the dizziness when ambulating in the hospital, but gets it randomly when she sitting in bed. She still admits to numbness, tingling and pain of her whole body on occasion. She again notes most of the discomfort in her left upper arm, but also does state the numbness and tingling is present throughout the left upper extremity. We again discussed the different tests that she's had done. Dr. Massey has done an MRI of her brain apparently, he is also done previous epidural injections, she states that the first one that she had was in November, but they had discussed future injections. She noted slight improvement in the pain she was having in the cervical region with this injection. She also states that she's had an EMG in the past. Neurology is recommending an EMG after discharge for further workup of her current symptoms. She still is very persistent about and EEG, that apparently was given a be ordered in the outpatient setting by Dr. Massey due to her dizziness. Currently denies any fever or chills, loss of bowel or bladder function, chest pain or shortness of breath. Objective - Vital Signs Vital signs: Vital Signs Temp 98 F 04/30/20 07:00 Pulse 69 04/30/20 11:53 Resp 16 04/30/20 07:00 BP 135/74 04/30/20 07:00 Pulse Ox 95 04/30/20 07:00 Intake & Output 04/29/20 04/30/20 04/30/20 18:59 06:59 18:59 Intake Total 660 200 Balance 660 200 Intake: Oral 660 200 Other: Voiding Method Toilet Toilet Toilet # Voids 3 1 - Exam en: AOx3, NAD VSS stable at this time Integument: No obvious open lesions or sores, areas of erythema, ecchymosis or soft tissue swelling appreciated about the cervical, thoracic, lumbar region, and left upper extremity Palpation: She is nontender with palpation midline and in the paraspinal region of the cervical, thoracic or lumbar region. There is no obvious step-off appreciated ROM: Forward elevation, shoulder abduction, elbow flexion, elbow extension, wrist extension, wrist flexion, intrinsics are all intact of the right upper extremity Active motion of major muscle groups of the left upper extremity are severely difficult due to pain. She is able to extend and flex the wrist and elbow along with make a fist minimal difficulty. Most discomfort is appreciated with attempted forward elevation and abduction of the left shoulder Patient is able to flex, extend, laterally rotate left and right cervical spine with minimal difficulty, this reproduces no significant worsening symptoms of the left upper extremity Hip flexion bilaterally, knee flexion and extension bilaterally, plantar flexion, dorsiflexion, EHL, FHL are all intact Sensory Exam: [place] exam to light touch is intact C5-T1 [place] exam to light touch is intact L2-S1 Motor: 5-5 strength is appreciated with shoulder abduction, forward elevation, elbow extension, elbow flexion, wrist extension, wrist flexion, hospice nurse strength the right upper extremity Difficult to grade strength of the left upper extremity due to pain reproduced on exam Reflexes: Negative Sawyer's bilaterally Vascular: Radial/ulnar pulses are 2+ bilateral upper extremities - Labs CBC & Chem 7: 04/29/20 06:35 04/29/20 06:35 Labs: Abnormal Lab Results - Last 24 Hours (Table) 04/29/20 04/29/20 04/30/20 Range/Units 17:26 19:44 06:51 POC Glucose (mg/dL) 138 H 216 H 203 H (75-99) mg/dL 04/30/20 Range/Units 12:22 POC Glucose (mg/dL) 273 H (75-99) mg/dL Assessment and Plan Assessment: Left upper extremity pain Left upper extremity weakness Left upper extremity numbness/tingling Generalized fatigue/weakness Super morbid obesity Multiple medical comorbidities Plan: X-ray results of the left shoulder demonstrated no acute fractures or dislocations, the glenohumeral joint remains intact. There is some arthritis noted at the AC joint. Computed tomography scan of the cervical spine demonstrated no acute fractures. Images demonstrate multilevel spondylosis, facet arthropathy and some foraminal encroachment at C5-C6 on the left and C6-C7 on the right. Discussed the findings with my attending Dr. Nair, he will be available on 05/01/2020 to further evaluate the patient. I did discuss the patient that this may be something to further work up in the outpatient setting seeing as she's had multiple tests done by Dr. Massye. Difficult to assess and provide diagnosis without having an obvious timeline and the results of those reports. We'll place an order for MRI of the cervical spine without contrast for 05/01/2020, pending Dr. Nair's evaluation we may hold off and schedule this in the outpatient setting Recommend further workup for her obvious dizziness by neurology either inpatient or in the outpatient setting Pain control, continue current medication GI and DVT prophylaxis per primary medical service No emergent orthopedic surgical intervention recommended at this time we'll cont inue to follow patient Time with Patient: Less than 30
--- NOTE | 2020-04-30 15:48 | P.PN ---
Subjective Progress Note Date: 04/30/20 Principal diagnosis: Chest pain Left arm pain and numbness 64-year-old female past history of diabetes, hypertension, sleep apnea, morbid obesity who presents to the emergency department with reported chest pain. Patient states that she has had substernal chest pain which radiates to her left arm since Friday. She complains of associated nausea, palpitations and generalized body aches. She did see her primary care doctor in office yesterday who placed a heart monitor on her. States that her symptoms got progressively worse today and therefore she called her primary care doctor. They did recommend that she go into the emergency room for evaluation. She denies previous history of cardiac disease. Did have a cardiac catheterization last year. Denies history of DVT or PE. No current lower externally swelling. Denies cough, fevers or chills. Patient was given aspirin and nitro en route to the hospital and does report to some improvement in her symptoms. No other alleviating, precipitating or modifying factors 2-lead EKG was performed. Laboratory studies were conducted in the patient for chest x-ray. Laboratory studies reveal a negative troponin. Chest x-ray demonstrates no acute process. While in the hospital patient has been complaining of recent onset left arm pain and weakness 04/29/2020 She does seen and evaluated in room at bedside; continues to complain of left arm pain and numbness Patient has been evaluated by neurology; CT of neck along with x-ray of left shoulder is ordered; patient remains on aspirin and Lipitor; she has been started on vitamin B12 and Lyrica; repeat vitamin B12 and folate levels are orde red; neurology recommending EMG with NCS as outpatient to rule out neuropathy versus radiculopathy Orthopedic surgery recommending pain controlled with [place]; Flexeril and Decadron as ordered; rest of recommendations after imaging is available 04/30/2020 Patient is seen sitting up in bedside chair; continues to report of severe arm pain and inability to move her arm Vital signs remained stable with blood pressure 129/75, pulse 72, respirations 16 and blood pressure of 97.8 Patient has been evaluated by neurology; CT of the neck reveals degenerative disc disease, facet arthropathy, foraminal encroachment; x-ray of the shoulder reveals possible impingement; patient is recommended possible EMG and nerve conduction study as an outpatient Patient has been evaluated by orthopedic surgery and recommending MRI of the cervical spine without contrast; further recommendations once MRI is completed Objective - Vital Signs Vital signs: Vital Signs Temp 98.1 F 04/30/20 14:38 Pulse 76 04/30/20 14:38 Resp 18 04/30/20 14:38 BP 88/49 04/30/20 14:38 Pulse Ox 96 04/30/20 14:38 Intake & Output 04/29/20 04/30/20 04/30/20 18:59 06:59 18:59 Intake Total 660 200 Balance 660 200 Intake: Oral 660 200 Other: Voiding Method Toilet Toilet Toilet # Voids 3 1 1 - Exam - Constitutional General appearance: Present: average body habitus, cooperative, no acute distress - EENT Eyes: Present: anicteric sclerae, EOMI, PERRLA, normal appearance ENT: Present: hearing grossly normal, normal oropharynx Ears: bilateral: normal - Neck Neck: Present: normal ROM. Absent: lymphadenopathy, rigidity, thyromegaly Carotids: negative: bruit present Thyroid: bilateral: normal size, negative: enlarged, nodule - Respiratory Respiratory: bilateral: CTA, negative: rales, rhonchi, wheezing - Cardiovascular Rhythm: regular Heart sounds: normal: S1, S2 Abnormal Heart Sounds: Absent: systolic murmur, diastolic murmur - Gastrointestinal General gastrointestinal: Present: normal bowel sounds, soft. Absent: distended, organomegaly, tenderness - Genitourinary Genitourinary Comment(s): deferred - Integumentary Integumentary: Present: normal turgor. Absent: jaundiced, rash, ulcer - Neurologic Neurologic: Present: CNII-XII intact. Absent: focal deficits - Musculoskeletal Musculoskeletal: Present: gait normal, strength equal bilaterally - Psychiatric Psychiatric: Present: A&O x's 3, appropriate affect, intact judgment & insight - Labs CBC & Chem 7: 04/29/20 06:35 04/29/20 06:35 Labs: Abnormal Lab Results - Last 24 Hours (Table) 04/29/20 04/29/20 04/30/20 Range/Units 17:26 19:44 06:51 POC Glucose (mg/dL) 138 H 216 H 203 H (75-99) mg/dL 04/30/20 Range/Units 12:22 POC Glucose (mg/dL) 273 H (75-99) mg/dL Assessment and Plan Assessment: 1. Chest pain - Patient is admitted to telemetry; EKG and troponin is being monitored; patient had cardiac catheterization done in September 2019 which revealed normal coronary arteries - Cardiology on board and recommending 2-D echo; no further cardiac workup at this time 2. Left arm pain/weakness; we will consult neurology and orthopedic service 3. COPD; not in exacerbation; Symbicort inhaler 2 puffs twice a day 4. Hyperlipidemia; Lipitor 40 mg by mouth daily at bedtime 5. Diabetes mellitus2; patient takes metformin 500 mg twice a day; we will hold off on metformin and monitor Accu-Cheks every before meals and at bedtime with insulin sliding scale 6. Hypothyroidism; levothyroxin 150 MCG daily 7. Hypertension; losartan 80 mg daily 7. Morbid obesity; counseling done on need for weight reduction DVT prophylaxis; SCDs CODE STATUS; full code
[2020-04-30 17:25] LABS: Glucose,Whole Blood 307 mg/dL (75-99)
[2020-04-30 19:57] LABS: Glucose,Whole Blood 374 mg/dL (75-99)
[2020-04-30] MEDS: LITHIUM CARBONATE 300 MG CAP PO SCH (20:35)
[2020-04-30] MEDS: SERTRALINE 100 MG TAB PO SCH (20:35)
[2020-04-30] MEDS: lamoTRIgine 100 MG TAB PO SCH (20:35)
[2020-04-30] MEDS: ATORVASTATIN 80 MG TAB PO SCH (20:35)
[2020-05-01] MEDS: DEXAMETHASONE SOD PHOSPHATE 4 MG/ML 1 ML VIAL IM SCH ×4 (00:08→17:28)
[2020-05-01 02:25] VITALS: TEMP 98.1
[2020-05-01] MEDS: LEVOTHYROXINE 75 MCG TAB PO SCH (05:50)
[2020-05-01 07:02] LABS: Glucose,Whole Blood 231 mg/dL (75-99)
[2020-05-01] MEDS: FUROSEMIDE 40 MG TAB PO SCH (08:20)
[2020-05-01] MEDS: CYANOCOBALAMIN 500 MCG TAB PO SCH (08:20)
[2020-05-01] MEDS: INSULIN ASPART (NovoLOG) 100 UNIT/ML VIAL SQ SCH ×3 (08:20→17:36)
[2020-05-01] MEDS: MULTIVITAMINS, THERA 1 EACH TAB PO SCH (08:21)
[2020-05-01] MEDS: ASPIRIN 81 MG PO SCH (08:21)
[2020-05-01] MEDS: POTASSIUM CHLORIDE ER 10 MEQ TAB.ER.PRT PO SCH (08:21)
[2020-05-01] MEDS: PREGABALIN 25 MG CAP PO SCH (08:21)
[2020-05-01] MEDS: FERROUS SULFATE 325 MG TAB PO SCH (08:21)
[2020-05-01] MEDS: HYDROcodone/APAP 5-325MG 1 EACH TAB PO PRN ×2 (08:31→16:25)
--- NOTE | 2020-05-01 08:42 | P.PN ---
Subjective Progress Note Date: 05/01/20 Patient was seen and examined this morning. I reviewed the note of Shelli finn and I agree. Patient is a 62-year-old female with left upper extremity pain and complaints of lower extremity weakness. Patient has had a workup previously for her dizziness as well as her symptomatology from an outpatient neural perspective. She continues to have left upper extremity pain she states weakness. She is mildly uncooperative with exam she is difficult with her history. She gets out of bed and moves around but has a lot of pain. She states that on Friday last week is when she noted that she was having numbness in her legs as well. She denies any bowel or bladder issues. She denies any perineal numbness or tingling. She does state that she is somewhat unsteady on her feet. Patient has a BMI of 65.6. She denies any vision changes headaches nausea vomiting or other usual symptoms. Objective - Vital Signs Vital signs: Vital Signs Temp 98.1 F 05/01/20 07:00 Pulse 64 05/01/20 07:00 Resp 18 05/01/20 07:00 BP 148/78 05/01/20 07:00 Pulse Ox 93 L 05/01/20 07:00 Intake & Output 04/30/20 05/01/20 05/01/20 18:59 06:59 18:59 Intake Total 440 Balance 440 Intake: Oral 440 Other: Voiding Method Toilet Toilet # Voids 1 3 - Exam PHYSICAL EXAMINATION: Vitals: Stable at this time General: Awake, alert, appropriate for age, in no acute distress. HEENT: No unusual neck masses around region of lateral neck triangle, thyroid, supraclavicular groove. Extremities: Skin warm and dry without no acute lesions, coloration, temperature, skin intact, no tenderness or erythema. Integument: Hairy patches: Absent Dorsal skin dimples: Absent Cafe au lait spots: Absent Surgical incisions: None Palpation: Please see Pain drawing on Intake sheet for further detail. (Tenderness = T, Nontender = NT, Swelling = S, Ecchymosis = E) Findings on Midline and paraspinal palpation and percussion: Cervical: NT Thoracic: NT Lumbar: NT Sacral: NT Special findings: None POSTURAL and MUSCULO-SKELETAL EVALUATION: Neck ROM: Unrestricted in six directions Lumbar ROM: Unrestricted in six directions Shoulder ROM: Symmetric in abduction, ER/IR Hip ROM: Symmetric in abduction, adduction, ER/IR Knee ROM: Symmetric and intact in Flexion / extension Hands: Normal appearing structure L and R Feet: Normal appearing structure L and R VASCULAR STATUS : Wrist Pulses: 2/4 bilateral radial and ulnar Pedal Pulses: 2/4 bilateral DP and PT Color: Normal Edema: None NEUROLOGIC EXAMINATION: Mental Status: Awake and alert, fully oriented, with normal attention, concentration and memory, and fluent, appropriate speech. Cranial Nerves: I: Olfactory not tested. II: Visual acuity normal, no visual field deficit noted with confrontation. III,IV: Normal pupillary reflexes & intact extraocular movements without nystagmus. V,: Intact symmetrical facial sensation. VII: Intact symmetrical facial motor movement VIII: Hearing intact. IX,X: Intact gag, swallow, & normal voice. XI: Sternocleidomastoid, trapezius function intact. XII: Tongue midline with normal movements. Special Tests: L'hermitte's Sign: Absent Spurling'Sign: Absent Bilateral Cubital percussion test: Absent Bilateral Osman-Tinel sign - Carpal region: Absent Bilateral Straight Leg Raising: Absent Bilateral Motor Exam (0-5/5, N/T) STRENGTH UPPER EXTREMITY Shoulder Abd (Not part of JN Motor score): RIGHT 5 LEFT 4+ Elbow Flexors: RIGHT 5 LEFT 4+ Elbow Extensor: RIGHT 5 LEFT 4 Wrrist Dorsiflexors: RIGHT 5 LEFT 4+ Finger Abductor: RIGHT 5 LEFT 5 Division Merchandise Manager: RIGHT 5 LEFT 4 LOWER EXTREMITY Hip Flexor (Not part of JN Motor Score): RIGHT 5 LEFT 5 Knee Flexor: RIGHT 5 LEFT 5 Knee Extensor: RIGHT 5 LEFT 5 Ankle Dorsiflexion: RIGHT 5 LEFT 5 Ankle Plantarflexion: RIGHT 5 LEFT 5 EHL: RIGHT 5 LEFT 5 FHL: RIGHT 5 LEFT 5 patient is somewhat generalized weakness secondary to her body habitus and condition. 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 Disdiadochokinesis examination negative bilaterally. - Constitutional General appearance: Present: morbidly obese - Psychiatric Psychiatric: Present: A&O x's 3 - Labs CBC & Chem 7: 04/29/20 06:35 04/29/20 06:35 Labs: Abnormal Lab Results - Last 24 Hours (Table) 04/30/20 04/30/20 04/30/20 Range/Units 12:22 17:21 19:56 POC Glucose (mg/dL) 273 H 307 H 374 H (75-99) mg/dL 05/01/20 Range/Units 07:01 POC Glucose (mg/dL) 231 H (75-99) mg/dL - Imaging and Cardiology I reviewed the computed tomography scan of her cervical spine shows a spondylosis throughout her cervical spine is no acute fracture dislocation occipital cervical and C1 2 joints appear stable. There are no other acute findings. Assessment and Plan Assessment: 62-year-old female left upper extremity pain and radiculopathy Morbid obesity Left upper extremity weakness Plan: PT OT Pain control Continue Lyrica Decadron Flexeril and pain control GI and DVT prophylaxis Await MRI imaging
[2020-05-01] MEDS: SYMBICORT 80-4.5 MCG INHALER INHALATION SCH (09:00)
[2020-05-01] MEDS: VALSARTAN 80 MG TAB PO SCH (09:25)
[2020-05-01] MEDS: NYSTATIN 100,000UNIT/GM CREAM 30 GM TUBE TOPICAL SCH (09:25)
[2020-05-01 11:59] LABS: Glucose,Whole Blood 274 mg/dL (75-99)
[2020-05-01 15:40] VITALS: BP 95/56; PULSE 71; RESP 14
--- NOTE | 2020-05-01 16:11 | P.DS ---
Providers Date of admission: 04/29/20 14:51 Attending physician: Jaison Shin MD Consults: 04/28/20 18:41 Consult Physician Routine Consulting Provider: Clinton Rivera Consult Reason/Comments: Left arm weakness Do you want consulting provider notified?: Yes 04/29/20 12:53 Consult Physician Routine Consulting Provider: Emory Acevedo Consult Reason/Comments: L arm pain Do you want consulting provider notified?: Already Contacted Primary care physician: Jacki Freeman [facility] Course: 64-year-old female past history of diabetes, hypertension, sleep apnea, morbid obesity who presents to the emergency department with reported chest pain. Patient states that she has had substernal chest pain which radiates to her left arm since Friday. She complains of associated nausea, palpitations and g eneralized body aches. She did see her primary care doctor in office yesterday who placed a heart monitor on her. States that her symptoms got progressively worse today and therefore she called her primary care doctor. They did recommend that she go into the emergency room for evaluation. She denies previous history of cardiac disease. Did have a cardiac catheterization last year. Denies history of DVT or PE. No current lower externally swelling. Denies cough, fevers or chills. Patient was given aspirin and nitro en route to the hospital and does report to some improvement in her symptoms. No other alleviating, precipitating or modifying factors 2-lead EKG was performed. Laboratory studies were conducted in the patient for chest x-ray. Laboratory studies reveal a negative troponin. Chest x-ray demonstrates no acute process. While in the hospital patient has been complaining of recent onset left arm pain and weakness 04/29/2020 She does seen and evaluated in room at bedside; continues to complain of left arm pain and numbness Patient has been evaluated by neurology; CT of neck along with x-ray of left shoulder is ordered; patient remains on aspirin and Lipitor; she has been started on vitamin B12 and Lyrica; repeat vitamin B12 and folate levels are ordered; neurology recommending EMG with NCS as outpatient to rule out neuropathy versus radiculopathy Orthopedic surgery recommending pain controlled with [place]; Flexeril and Decadron as ordered; rest of recommendations after imaging is available 04/30/2020 Patient is seen sitting up in bedside chair; continues to report of severe arm pain and inability to move her arm Vital signs remained stable with blood pressure 129/75, pulse 72, respirations 16 and blood pressure of 97.8 Patient has been evaluated by neurology; CT of the neck reveals degenerative disc disease, facet arthropathy, foraminal encroachment; x-ray of the shoulder reveals possible impingement; patient is recommended possible EMG and nerve conduction study 05/01/2020 neck and patient is still complaining of pain in the neck and and the left arm. Unable to obtain an MRI because she cannot fit in the machine. Discussed with the orthopedic surgery patient will be discharged today to follow up with arthritic surgery and neurology as an outpatient. Prescriptions for Lyrica, [place], Decadron will be provided and patient the was asked to use MiraLAX [id number] medications for constipation if she is constipated. Patient's face nonsteroidal anti-inflammatory is not helping her. PHYSICAL EXAMINATION: GENERAL: The patient is alert and oriented x3, not in any acute distress. Obese HEENT: Pupils are round and equally reacting to light. EOMI. No scleral icterus. No conjunctival pallor. Normocephalic, atraumatic. No pharyngeal erythema. No thyromegaly. CARDIOVASCULAR: S1 and S2 present. No murmurs, rubs, or gallops. PULMONARY: Chest is clear to auscultation, no wheezing or crackles. ABDOMEN: Soft, nontender, nondistended, normoactive bowel sounds. No palpable organomegaly. MUSCULOSKELETAL: Deferred to orthopedic surgery EXTREMITIES: No cyanosis, clubbing, or pedal edema. NEUROLOGICAL: Gross neurological examination did not reveal any focal deficits. SKIN: No rashes. Assessment and Plan Assessment: 1. Chest pain - Patient is admitted to telemetry; EKG and troponin is being monitored; patient had cardiac catheterization done in September 2019 which revealed normal coronary arteries - Cardiology on board and recommending 2-D echo; no further cardiac workup at this time. Patient chest pain is probably musculoskeletal and secondary to cervical were difficult degenerative disc disease 2. Left arm pain/weakness; secondary to cervical vertebral degenerative disc disease with reticulocyte Laffey 3. COPD; not in exacerbation; Symbicort inhaler 2 puffs twice a day 4. Hyperlipidemia; Lipitor 40 mg by mouth daily at bedtime 5. Diabetes mellitus2; patient takes metformin 500 mg twice a day; we will hold off on metformin and monitor Accu-Cheks every before meals and at bedtime with insulin sliding scale 6. Hypothyroidism; levothyroxin 150 MCG daily 7. Hypertension; losartan 80 mg daily 7. Morbid obesity; counseling done . Patient Condition at Discharge: Stable Plan - Discharge Summary Discharge Rx Participant: No New Discharge Prescriptions: New Cyclobenzaprine [Flexeril] 10 mg PO BID PRN #20 tab PRN Reason: Muscle Spasm Pregabalin [Lyrica] 25 mg PO BID #20 cap Dexamethasone [Decadron] 4 mg PO BID #30 tablet Continue Fish Oil/Dha/Epa [Fish Oil 1,200 mg Fish Oil] 1 cap PO DAILY Atorvastatin [Lipitor] 80 mg PO HS Levothyroxine Sodium 150 mcg PO DAILY Albuterol Sulfate [Ventolin HFA] 2 puff INHALATION RT-Q4H PRN PRN Reason: Shortness Of Breath lamoTRIgine 100 mg PO HS Melatonin 10 mg PO HS PRN PRN Reason: SLEEP Sertraline [Zoloft] 100 mg PO DAILY Aspirin 81 mg PO DAILY chew Multivitamins, Thera [Multivitamin (formulary)] 1 tab PO DAILY Ferrous Sulfate [Iron (65 MG Elemental)] 325 mg PO DAILY [place] Carbonate [[place] Carbonate ER] 300 mg PO HS Fluticasone Nasal [place] [Flonase Nasal [place]] 2 spray EA NOSTRIL DAILY PRN PRN Reason: Allergy Symptoms Valsartan 80 mg PO DAILY Nystatin 100,000Unit/gm Cream [Mycostatin Cream] 1 applic TOPICAL BID metFORMIN HCL [Glucophage] 500 mg PO BID Potassium Chloride ER [K-Dur 10] 10 meq PO DAILY Furosemide [Lasix] 40 mg PO DAILY Fluticasone/Salmeterol [Advair 250-50 Diskus] 1 puff INHALATION RT-BID Magnesium Oxide 400 mg PO DAILY Discharge Medication List Fish Oil/Dha/Epa [Fish Oil 1,200 mg Fish Oil] 1 cap PO DAILY 04/22/16 [History] Atorvastatin [Lipitor] 80 mg PO HS 01/22/18 [History] Levothyroxine Sodium 150 mcg PO DAILY 01/22/18 [History] Albuterol Sulfate [Ventolin HFA] 2 puff INHALATION RT-Q4H PRN 10/10/19 [History] Melatonin 10 mg PO HS PRN 10/10/19 [History] Sertraline [Zoloft] 100 mg PO DAILY 10/10/19 [History] lamoTRIgine 100 mg PO HS 10/10/19 [History] Aspirin 81 mg PO DAILY chew 10/15/19 [Rx] Ferrous Sulfate [Iron (65 MG Elemental)] 325 mg PO DAILY 04/27/20 [History] Fluticasone Nasal [place] [Flonase Nasal [place]] 2 spray EA NOSTRIL DAILY PRN 04/27/20 [History] Fluticasone/Salmeterol [Advair 250-50 Diskus] 1 puff INHALATION RT-BID 04/27/20 [History] Furosemide [Lasix] 40 mg PO DAILY 04/27/20 [History] [place] Carbonate [[place] Carbonate ER] 300 mg PO HS 04/27/20 [History] Magnesium Oxide 400 mg PO DAILY 04/27/20 [History] Multivitamins, Thera [Multivitamin (formulary)] 1 tab PO DAILY 04/27/20 [History] Nystatin 100,000Unit/gm Cream [Mycostatin Cream] 1 applic TOPICAL BID 04/27/20 [History] Potassium Chloride ER [K-Dur 10] 10 meq PO DAILY 04/27/20 [History] Valsartan 80 mg PO DAILY 04/27/20 [History] metFORMIN HCL [Glucophage] 500 mg PO BID 04/27/20 [History] Cyclobenzaprine [Flexeril] 10 mg PO BID PRN #20 tab 05/01/20 [Rx] Dexamethasone [Decadron] 4 mg PO BID #30 tablet 05/01/20 [Rx] Pregabalin [Lyrica] 25 mg PO BID #20 cap 05/01/20 [Rx] Follow up Appointment(s)/Referral(s): Jacki Freeman DO [Primary Care Provider] - 3 Days Ainsley Massey MD [Medical Doctor] - 1 Week Sarath Nair DO [Doctor of Osteopathic Medicine] - 1 Week Activity/Diet/Wound Care/Special Instructions: follow up with Orthopedics to schedule Open MRI activity as tolerated consistent carb diet Discharge Disposition: HOME SELF-CARE
[2020-05-01 17:22] LABS: Glucose,Whole Blood 319 mg/dL (75-99)
--- NOTE | 2020-05-06 08:37 | ECHOF ---
Referral Reason:LV function,chest pain MEASUREMENTS -------- HEIGHT: 152.4 cm WEIGHT: 152.4 kg BP: 102/65 RVIDd: 4.8 cm (< 3.3) IVSd: 1.4 cm (0.6 - 1.1) LVIDd: 4.4 cm (3.9 - 5.3) LVPWd: 1.4 cm (0.6 - 1.1) IVSs: 1.7 cm LVIDs: 3.0 cm LVPWs: 1.9 cm LAESV Index (A-L): 24.31 ml/m Ao Diam: 2.8 cm (2.0 - 3.7) AV Cusp: 2.2 cm (1.5 - 2.6) LA Diam: 4.2 cm (2.7 - 3.8) MV E Ed[place]: 0.76 m/s MV DecT: 174 ms MV A [place]: 0.65 m/s MV E/A Ratio: 1.16 RAP: 5.00 mmHg RVSP: 25.15 mmHg FINDINGS -------- Sinus rhythm. This was a technically difficult study with suboptimal views. The left ventricular size is normal. There is moderate concentric left ventricular hypertrophy. O verall left ventricular systolic function is normal with, an EF between 55 - 60 %. The right ventricle is moderate to severely enlarged. Normal LA size by volume 22+/-6 ml/m2. The right atrium was not well visualized. xx ml of Lumason was utilized for enhancement of images. Interatrial and interventricular septum intact. The aortic valve was not well visualized. There is no evidence of aortic regurgitation. There is no evidence of aortic stenosis. The mitral valve is normal. Mild mitral regurgitation is present. Mild tricuspid regurgitation present. Right ventricular systolic pressure is normal at < 35 mmHg. The right ventricular systolic pressure, as measured by Doppler, is 25.15mmHg. The pulmonic valve was not well visualized. There is no pulmonic regurgitation present. The aortic root size is normal. IVC Not well visulized. There is no pericardial effusion. CONCLUSIONS -------- 1. This was a technically difficult study with suboptimal views. 2. There is moderate concentric left ventricular hypertrophy. 3. Overall left ventricular systolic function is normal with, an EF between 55 - 60 %. 4. The right ventricle is moderate to severely enlarged. 5. Normal LA size by volume 22+/-6 ml/m2. 6. The aortic valve was not well visualized. 7. Mild mitral regurgitation is present. 8. Mild tricuspid regurgitation present. 9. There is no pericardial effusion. PHOTOGRAPHER ASSISTANT: Cami Herrera RDCS
== END 2020-05-01 19:44 | disposition home or self-care (01) | DRG 552 ==
LOC: EC 19:20 → SUPCPDRO 19:20 → 6NMEDSUR 22:04 → OBSVTOIN 04-29 14:51
PROVIDERS: ADMIT Internal Medicine; ATTEND Internal Medicine
DX: M47.22 Other spondylosis with radiculopathy, cervical region (principal); Z68.44 Body mass index [BMI] 60.0-69.9, adult; E11.42 Type 2 diabetes mellitus with diabetic polyneuropathy; I11.9 Hypertensive heart disease without heart failure; E66.01 Morbid (severe) obesity due to excess calories; J44.9 Chronic obstructive pulmonary disease, unspecified; D64.9 Anemia, unspecified; E78.5 Hyperlipidemia, unspecified; E03.9 Hypothyroidism, unspecified; F60.3 Borderline personality disorder; Z20.822 Contact with and (suspected) exposure to COVID-19; R07.9 Chest pain, unspecified; G56.00 Carpal tunnel syndrome, unspecified upper limb; F32.9 Major depressive disorder, single episode, unspecified; K21.9 Gastro-esophageal reflux disease without esophagitis; G47.33 Obstructive sleep apnea (adult) (pediatric); F41.0 Panic disorder [episodic paroxysmal anxiety]; H81.399 Other peripheral vertigo, unspecified ear; R26.81 Unsteadiness on feet; K59.00 Constipation, unspecified; K57.90 Diverticulosis of intestine, part unspecified, without perforation or abscess without bleeding; G51.0 Bell's palsy; Z79.82 Long term (current) use of aspirin; Z79.84 Long term (current) use of oral hypoglycemic drugs; Z79.890 Hormone replacement therapy; Z79.51 Long term (current) use of inhaled steroids; Z79.899 Other long term (current) drug therapy; Z87.19 Personal history of other diseases of the digestive system; Z90.89 Acquired absence of other organs; Z98.891 History of uterine scar from previous surgery; Z87.442 Personal history of urinary calculi; Z87.81 Personal history of (healed) traumatic fracture; Z98.41 Cataract extraction status, right eye; Z98.42 Cataract extraction status, left eye; Z96.1 Presence of intraocular lens; Z98.890 Other specified postprocedural states; Z71.3 Dietary counseling and surveillance; Z88.2 Allergy status to sulfonamides; Z80.0 Family history of malignant neoplasm of digestive organs; Z80.41 Family history of malignant neoplasm of ovary; Z82.49 Family history of ischemic heart disease and other diseases of the circulatory system; Z82.3 Family history of stroke; Z83.3 Family history of diabetes mellitus; Z84.1 Family history of disorders of kidney and ureter
CPT/HCPCS: 36415; 71046; 72125; 80048; 80053; 82607; 82747; 83690; 83735; 83880; 84484; 85025; 85610; 85730; 87635; 93005; 93306; 94640; 94760; 96374; 96375; 99285

== ENCOUNTER 2021-10-06 15:58 | Observation (INO) | payer MEDICARE, OTHER ==
--- NOTE | 2021-10-06 16:38 | ED ---
General Adult HPI - General Chief complaint: Chest Pain Stated complaint: chest pain Time Seen by Provider: 10/06/21 16:12 Source: patient, EMS, RN notes reviewed Mode of arrival: EMS Limitations: no limitations - History of Present Illness Initial comments: Patient is a 66-year-old female presents to the emergency room via EMS with multiple complaints. She is complaining of chest pain, nausea without emesis, bilateral lower back pain, abdominal pain, diarrhea, dizziness, headache, urinary frequency, dysuria, heavy painful lower extremities and occasional episodes of confusion. She reports being treated for a urinary tract infection outpatient approximately 2-3 weeks ago with Keflex and states that symptoms have gotten worse since that time. She reports recently that multiple trips to the bathroom for urgency have resulted in no urine output. She denies any shortness of breath, orthopnea, or lower extremity swelling at this time. Jag andres has a past medical history significant for CAD, LA, hypertension, morbid obesity, sleep apnea with noncompliance with CPAP, diabetes, migraines, kidney stones, hyperlipidemia and thyroid disease. - Related Data Home Medications Medication Instructions Recorded Confirmed Fish Oil/Dha/Epa [Fish Oil 1,200 1 cap PO DAILY 04/22/16 04/27/20 mg Fish Oil] Atorvastatin [Lipitor] 80 mg PO HS 01/22/18 04/27/20 Levothyroxine Sodium 150 mcg PO DAILY 01/22/18 04/27/20 Albuterol Sulfate [Ventolin HFA] 2 puff INHALATION RT-Q4H PRN 10/10/19 04/27/20 Melatonin [Melatonin ER] 10 mg PO HS PRN 10/10/19 04/27/20 Sertraline [Zoloft] 100 mg PO DAILY 10/10/19 04/27/20 lamoTRIgine 100 mg PO HS 10/10/19 04/27/20 Ferrous Sulfate [Iron (65 MG 325 mg PO DAILY 04/27/20 04/27/20 Elemental)] Fluticasone Nasal [place] [Flonase 2 spray EA NOSTRIL DAILY PRN 04/27/20 04/27/20 Nasal [place]] Fluticasone Propion/Salmeterol 1 puff INHALATION RT-BID 04/27/20 04/27/20 [Advair 250-50 Diskus] Furosemide [Lasix] 40 mg PO DAILY 04/27/20 04/27/20 Clarion Carbonate [Clarion 300 mg PO HS 04/27/20 04/27/20 Carbonate ER] Magnesium Oxide 400 mg PO DAILY 04/27/20 04/27/20 Multivitamins, Thera [Multivitamin 1 tab PO DAILY 04/27/20 04/27/20 (formulary)] Nystatin 100,000Unit/gm Cream 1 applic TOPICAL BID 04/27/20 04/27/20 [Mycostatin Cream] Potassium Chloride ER [K-Dur 10] 10 meq PO DAILY 04/27/20 04/27/20 Valsartan 80 mg PO DAILY 04/27/20 04/27/20 metFORMIN HCL [Glucophage] 500 mg PO BID 04/27/20 04/27/20 Previous Rx's Medication Instructions Recorded Aspirin 81 mg PO DAILY chew 10/15/19 Cyclobenzaprine [Flexeril] 10 mg PO BID PRN #20 tab 05/01/20 Pregabalin [Lyrica] 25 mg PO BID #20 cap 05/01/20 dexAMETHasone [Decadron] 4 mg PO BID #30 tablet 05/01/20 Allergies Allergy/AdvReac Type Severity Reaction Status Date / Time sulfamethoxazole Allergy Unknown Rash/Hives, Verified 10/06/21 18:42 [From Bactrim] SOB trimethoprim [From Bactrim] Allergy Unknown Rash/Hives, Verified 10/06/21 18:42 SOB Review of Systems ROS Statement: Those systems with pertinent positive or pertinent negative responses have been documented in the HPI. ROS Other: All systems not noted in ROS Statement are negative. 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 Past Anesthesia/Blood Transfusion Reactions: Family History of Problems w/ Anesthesia, Motion Sickness Additional Past Anesthesia/Blood Transfusion Reaction / Comment(s): clausterphobia. pt's sister had diff breathing from anesthesia Past Psychological History: Anxiety, Depression, Panic Disorder Smoking Status: Never smoker Past Alcohol Use History: None Reported Past Drug Use History: None Reported - Past Family History Son(s) Additional Family Medical History / Comment(s): She has 2 sons with no major medical problems. Patient does not have any daughters. Mother Additional Family Medical History / Comment(s): Mother at age 80 from renal failure. Father Additional Family Medical History / Comment(s): Father at age 67 with history of LA and stroke Brother(s) Family Medical History: Cancer Additional Family Medical History / Comment(s): She has total of 5 brothers and all had history of coronary artery disease and CABG, hypertension, hyperlipidemia, diabetes. Sister(s) Family Medical History: Cancer Additional Family Medical History / Comment(s): one sister of colon cancer, second sister had ovarian cancer General Exam Limitations: no limitations General appearance: alert, in no apparent distress, obese Head exam: Present: atraumatic, normocephalic, normal inspection Eye exam: Present: normal appearance, PERRL, EOMI. Absent: scleral icterus, conjunctival injection, periorbital swelling ENT exam: Present: normal exam, mucous membranes moist Neck exam: Present: normal inspection Respiratory exam: Present: normal lung sounds bilaterally. Absent: respiratory distress, wheezes, rales, rhonchi, stridor Cardiovascular Exam: Present: regular rate, normal rhythm, normal heart sounds. Absent: systolic murmur, diastolic murmur, rubs, gallop, clicks GI/Abdominal exam: Present: soft, normal bowel sounds, other (large panus). Absent: distended, tenderness, guarding, rebound, rigid Rectal exam: Present: deferred Extremities exam: Present: normal inspection, normal capillary refill. Absent: tenderness, pedal edema, joint swelling, calf tenderness Back exam: Present: normal inspection. Absent: CVA tenderness (R), CVA tend erness (L) Neurological exam: Present: alert, oriented X3, CN II-XII intact Psychiatric exam: Present: normal affect, normal mood Skin exam: Present: warm, dry, intact, normal color. Absent: rash Course Vital Signs 10/06/21 10/06/21 16:00 16:10 Temperature 98.8 F Pulse Rate 60 Pulse Rate [ 60 Talent Director ] Respiratory 16 Rate Blood Pressure 122/75 O2 Sat by Pulse 96 Oximetry Medical Decision Making - Medical Decision Making 66-year-old female with multiple comorbid conditions complaining of chest pain with associated dizziness, headache nausea and vomiting. No emesis in ambulance or since presentation to the emergency room. Reports recent UTI with persistence as notes of dysuria, urinary frequency and decreased urine output. Also complains of diarrhea. Zofran night and aspirin given in ambulance. EKG completed showing sinus bradycardia but unchanged from last EKG in April 2020. Will obtain CBC, CMP, lactic acid, troponin, d-dimer, proBNP, magnesium along with urinalysis. Given reports of recent UTI with worsening of symptoms will also check classic acid CBC and blood cultures to rule out any infectious processes causing underlying symptoms. Will also check for COVID and influenza. Overall lab stable. CBC without leukocytosis or anemia. CMP shows low CO2 level at 20 otherwise normal electrolytes. Magnesium and d-dimer normal. Troponin negative. ProBNP without elevatio. Urinalysis negative for leukocytes or bacteria trace amount of protein noted. COVID and influenza swabs negative. Lactic acid slightly elevated at 2.1 without obvious signs of infection. Chest x-ray negative for acute cardiopulmonary processes. Due to presenting symptoms of chest pain with dizziness, nausea, and vomiting and comorbid conditions of previous LA, diabetes, HTN, HLP, and morbid obesity will plan for observation admission for chest pain evaluation. Case discussed with Dr. Wilkerson and Dr. Orr who is on-call for [facility] physician taking observation admission for her primary care provider. - Lab Data Result diagrams: 10/06/21 16:21 10/06/21 16:21 Lab Results 10/06/21 10/06/21 10/06/21 Range/Units 16:21 16:21 16:21 WBC 8.4 (3.8-10.6) k/uL RBC 4.42 (3.80-5.40) m/uL Hgb 11.7 (11.4-16.0) gm/dL Hct 37.8 (34.0-46.0) % MCV 85.5 (80.0-100.0) fL MCH 26.4 (25.0-35.0) pg MCHC 30.9 L (31.0-37.0) g/dL RDW 13.9 (11.5-15.5) % Plt Count 323 (150-450) k/uL MPV 9.4 Neutrophils % 63 % Lymphocytes % 26 % Monocytes % 7 % Eosinophils % 2 % Basophils % 1 % Neutrophils # 5.3 (1.3-7.7) k/uL Lymphocytes # 2.2 (1.0-4.8) k/uL Monocytes # 0.5 (0-1.0) k/uL Eosinophils # 0.2 (0-0.7) k/uL Basophils # 0.1 (0-0.2) k/uL Hypochromasia Slight PT 10.7 (9.0-12.0) sec INR 1.0 (<1.2) APTT 23.0 (22.0-30.0) sec Sodium 141 (137-145) mmol/L Potassium 4.9 (3.5-5.1) mmol/L Chloride 107 (98-107) mmol/L Carbon Dioxide 20 L (22-30) mmol/L Anion Gap 14 mmol/L BUN 13 (7-17) mg/dL Creatinine 0.83 (0.52-1.04) mg/dL Est GFR (CKD-EPI)AfAm 87 (>60 ml/min/1.73 sqM) Est GFR (CKD-EPI)NonAf 75 (>60 ml/min/1.73 sqM) Glucose 96 (74-99) mg/dL Plasma Lactic Acid Mariano (0.7-2.0) mmol/L Calcium 9.3 (8.4-10.2) mg/dL Magnesium 1.8 (1.6-2.3) mg/dL Total Bilirubin 0.5 (0.2-1.3) mg/dL AST 25 (14-36) U/L ALT 20 (4-34) U/L Alkaline Phosphatase 58 (38-126) U/L Troponin I (0.000-0.034) ng/mL Total Protein 6.5 (6.3-8.2) g/dL Albumin 4.1 (3.5-5.0) g/dL Urine Color Urine Appearance (Clear) Urine pH (5.0-8.0) Ur Specific [place] (1.001-1.035) Urine Protein (Negative) Urine Glucose (UA) (Negative) Urine Ketones (Negative) Urine Blood (Negative) Urine Nitrite (Negative) Urine Bilirubin (Negative) Urine Urobilinogen (<2.0) mg/dL Ur Leukocyte Esterase (Negative) Coronavirus (PCR) (Not Detectd) Influenza Type A RNA (Not Detectd) Influenza Type B (PCR) (Not Detectd) 10/06/21 10/06/21 10/06/21 Range/Units 16:21 16:21 16:21 WBC (3.8-10.6) k/uL RBC (3.80-5.40) m/uL Hgb (11.4-16.0) gm/dL Hct (34.0-46.0) % MCV (80.0-100.0) fL MCH (25.0-35.0) pg MCHC (31.0-37.0) g/dL RDW (11.5-15.5) % Plt Count (150-450) k/uL MPV Neutrophils % % Lymphocytes % % Monocytes % % Eosinophils % % Basophils % % Neutrophils # (1.3-7.7) k/uL Lymphocytes # (1.0-4.8) k/uL Monocytes # (0-1.0) k/uL Eosinophils # (0-0.7) k/uL Basophils # (0-0.2) k/uL Hypochromasia PT (9.0-12.0) sec INR (<1.2) APTT (22.0-30.0) sec Sodium (137-145) mmol/L Potassium (3.5-5.1) mmol/L Chloride (98-107) mmol/L Carbon Dioxide (22-30) mmol/L Anion Gap mmol/L BUN (7-17) mg/dL Creatinine (0.52-1.04) mg/dL Est GFR (CKD-EPI)AfAm (>60 ml/min/1.73 sqM) Est GFR (CKD-EPI)NonAf (>60 ml/min/1.73 sqM) Glucose (74-99) mg/dL Plasma Lactic Acid Mariano (0.7-2.0) mmol/L Calcium (8.4-10.2) mg/dL Magnesium (1.6-2.3) mg/dL Total Bilirubin (0.2-1.3) mg/dL AST (14-36) U/L ALT (4-34) U/L Alkaline Phosphatase (38-126) U/L Troponin I <0.012 (0.000-0.034) ng/mL Total Protein (6.3-8.2) g/dL Albumin (3.5-5.0) g/dL Urine Color Urine Appearance (Clear) Urine pH (5.0-8.0) Ur Specific [place] (1.001-1.035) Urine Protein (Negative) Urine Glucose (UA) (Negative) Urine Ketones (Negative) Urine Blood (Negative) Urine Nitrite (Negative) Urine Bilirubin (Negative) Urine Urobilinogen (<2.0) mg/dL Ur Leukocyte Esterase (Negative) Coronavirus (PCR) Not Detected (Not Detectd) Influenza Type A RNA Not Detected (Not Detectd) Influenza Type B (PCR) Not Detected (Not Detectd) 10/06/21 10/06/21 Range/Units 16:25 17:08 WBC (3.8-10.6) k/uL RBC (3.80-5.40) m/uL Hgb (11.4-16.0) gm/dL Hct (34.0-46.0) % MCV (80.0-100.0) fL MCH (25.0-35.0) pg MCHC (31.0-37.0) g/dL RDW (11.5-15.5) % Plt Count (150-450) k/uL MPV Neutrophils % % Lymphocytes % % Monocytes % % Eosinophils % % Basophils % % Neutrophils # (1.3-7.7) k/uL Lymphocytes # (1.0-4.8) k/uL Monocytes # (0-1.0) k/uL Eosinophils # (0-0.7) k/uL Basophils # (0-0.2) k/uL Hypochromasia PT (9.0-12.0) sec INR (<1.2) APTT (22.0-30.0) sec Sodium (137-145) mmol/L Potassium (3.5-5.1) mmol/L Chloride (98-107) mmol/L Carbon Dioxide (22-30) mmol/L Anion Gap mmol/L BUN (7-17) mg/dL Creatinine (0.52-1.04) mg/dL Est GFR (CKD-EPI)AfAm (>60 ml/min/1.73 sqM) Est GFR (CKD-EPI)NonAf (>60 ml/min/1.73 sqM) Glucose (74-99) mg/dL Plasma Lactic Acid Mariano 2.1 H* (0.7-2.0) mmol/L Calcium (8.4-10.2) mg/dL Magnesium (1.6-2.3) mg/dL Total Bilirubin (0.2-1.3) mg/dL AST (14-36) U/L ALT (4-34) U/L Alkaline Phosphatase (38-126) U/L Troponin I (0.000-0.034) ng/mL Total Protein (6.3-8.2) g/dL Albumin (3.5-5.0) g/dL Urine Color Yellow Urine Appearance Clear (Clear) Urine pH 5.0 (5.0-8.0) Ur Specific [place] 1.023 (1.001-1.035) Urine Protein Trace H (Negative) Urine Glucose (UA) Negative (Negative) Urine Ketones Negative (Negative) Urine Blood Negative (Negative) Urine Nitrite Negative (Negative) Urine Bilirubin Negative (Negative) Urine Urobilinogen <2.0 (<2.0) mg/dL Ur Leukocyte Esterase Negative (Negative) Coronavirus (PCR) (Not Detectd) Influenza Type A RNA (Not Detectd) Influenza Type B (PCR) (Not Detectd) - EKG Data EKG Comments: Sinus bradycardia, nonspecific T-wave abnormalities, ventricular rate 57 bpm, MD interval 74 ms, QRS duration 75 ms, QT/QTC 425/490 ms PRT axes , 30, 34 When compared to previous EKG there are: no significant change - Radiology Data Radiology results: report reviewed, image reviewed Two-view chest x-ray impression: No acute cardiopulmonary process/disease. Disposition Clinical Impression: Chest pain Disposition: ADMITTED IP TO THIS [facility] Condition: Stable Is patient prescribed a controlled substance at d/c from ED?: No Referrals: Jacki Freeman DO [Primary Care Provider] - 1-2 days Time of Disposition: 18:49
[2021-10-06 16:54] LABS: Basophils # (A) 0.1 k/uL (0-0.2); Basophils % (A) 1 %; Eosinophils # (A) 0.2 k/uL (0-0.7); Eosinophils % (A) 2 %; HCT 37.8 % (34.0-46.0); HGB 11.7 gm/dL (11.4-16.0); Hypochromasia Slight; Lymphocytes # (A) 2.2 k/uL (1.0-4.8); Lymphocytes % (A) 26 %; MCH 26.4 pg (25.0-35.0); MCHC 30.9 g/dL (31.0-37.0); MCV 85.5 fL (80.0-100.0); Mean Platelet Volume 9.4; Monocytes # (A) 0.5 k/uL (0-1.0); Monocytes % (A) 7 %; Neutrophils # (A) 5.3 k/uL (1.3-7.7); Neutrophils % (A) 63 %; Platelet Count 323 k/uL (150-450); RBC 4.42 m/uL (3.80-5.40); RDW 13.9 % (11.5-15.5); WBC 8.4 k/uL (3.8-10.6)
[2021-10-06 17:02] LABS: Prothrombin Time 10.7 sec (9.0-12.0)
[2021-10-06 17:04] LABS: Albumin 4.1 g/dL (3.5-5.0); Calcium 9.3 mg/dL (8.4-10.2); Magnesium 1.8 mg/dL (1.6-2.3); Potassium 4.9 mmol/L (3.5-5.1); Total Bilirubin 0.5 mg/dL (0.2-1.3); Total Protein 6.5 g/dL (6.3-8.2)
[2021-10-06 17:13] LABS: Appearance,Urine Clear (Clear); Bilirubin,Urine Negative (Negative); Blood,Urine Negative (Negative); Color,Urine Yellow; Glucose,Urine (UA) Negative (Negative); Ketones,Urine Negative (Negative); Leukocyte Esterase,Urine Negative (Negative); Nitrite,Urine Negative (Negative); Protein,Urine Trace (Negative); Specific Gravity,Urine 1.023 (1.001-1.035); Urobilinogen,Urine <2.0 mg/dL (<2.0)
--- NOTE | 2021-10-06 17:31 | XR ---
EXAMINATION TYPE: XR chest 2V DATE OF EXAM: 10/06/2021 5:15 PM COMPARISON: Chest x-ray 04/27/2020 TECHNIQUE: XR chest 2V . CLINICAL INDICATION:Female, 66 years old with history of Chest Pain; FINDINGS: Lungs/Pleura: There is no evidence of pleural effusion, focal consolidation, or pneumothorax. Pulmonary vascularity: Unremarkable. Heart/mediastinum: Cardiomediastinal silhouette is prominent in size, but stable. Atherosclerotic ca lcifications are seen in the aorta. Musculoskeletal: No acute osseous pathology. IMPRESSION: No acute cardiopulmonary disease/process.
[2021-10-06] MEDS ORDERED: NALOXONE 0.4 MG/ML 1 ML VIAL IV PRN (18:39)
[2021-10-07] MEDS ORDERED: SODIUM CHLORIDE 0.9% 1,000 ML IV ONE (00:04)
--- NOTE | 2021-10-07 00:36 | P.HPIM ---
History of Present Illness H&P Date: 10/06/21 The patient is a 66-year-old female with a PMH of coronary artery disease, hypertension, hyperlipidemia, type II DM, asthma who presents to the emergency room with multiple complaints. The patient reports that over the past 2-3 days, she has been experiencing intermittent diffuse chest discomfort, throbbing in nature, radiating to both shoulders, lasting for a few minutes at a time and then resolving spontaneously, with associated shortness of breath and nausea. The patient also reports being diagnosed with UTI 1-2 weeks ago and given a course of 7 days of Keflex which she completed. She reports however ongoing urinary complaints with dysuria and decreased urine output. Denies fever, chi lls, cough. Also reports right upper quadrant abdominal pain occurring intermittently over the past several months. Chest x-ray in the emergency room was unremarkable with EKG showing sinus bradycardia at [address]/T-wave changes noted as reviewed by me. Laboratory evaluation was remarkable for a lactic acid of 2.1 and an unremarkable UA. Review of systems: Pertinent positives and negatives as discussed in HPI, a complete review of systems was performed and all other systems are negative. Physical examination: General: non toxic, no distress, appears older than stated age, morbidly obese Derm: no unusual rashes/lesions, warm Head: atraumatic, normocephalic, symmetric Eyes: EOMI, no lid lag, anicteric sclera, pupils equal round reactive to light ENT: Nose and ears atraumatic Neck: No cervical lymphadenopathy, trachea midline, supple Mouth: no lip lesion, mucus membranes moist Cardiovascular: S1S2 reg, no murmur, positive dorsalis pedis pulse bilateral, no edema Lungs: CTA bilateral, no rhonchi, no rales, no accessory muscle use Abdominal: soft, right upper quadrant mild tenderness to palpation, no guarding Ext: muscle strength 5 out of 5 in all 4 extremities grossly, no gross muscle atrophy, no contractures, Neuro: CN II-XI grossly intact, no gross focal neuro deficits Psych: Alert, oriented, appropriate affect Assessment/plan Chest pain, rule out ACS -Cardiology consulted -Cardiac monitoring -Continue with aspirin, statin -Trend troponin Lactic acidosis -IV fluids -Monitor for resolution Right upper quadrant abdominal pain -Obtain liver ultrasound Chronic conditions: Coronary artery disease, hypertension, hyperlipidemia, asthma, type II DM -Insulin sliding scale -Continue with home meds DVT prophylaxis -Heparin subcu The patient is admitted with an anticipated less than 2 midnight stay for evaluation of chest pain CODE STATUS: Full Code Discussed with: Patient Anticipated discharge date: in am Anticipated discharge place: Home Past Medical History Past Medical History: Asthma, Chest Pain / Angina, Diabetes Mellitus, GERD/Reflux, Hyperlipidemia, Sleep Apnea/CPAP/BIPAP, Thyroid Disorder Additional Past Medical History / Comment(s): freddy-not using her cpap machine anemia, chest pain "from anxiety", sometimes low BP, occ palpitations, diverticulosis, kidney stone, "leaky heart valve".fall in broke rib on rt side, 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 Past Anesthesia/Blood Transfusion Reactions: Family History of Problems w/ Anesthesia, Motion Sickness Additional Past Anesthesia/Blood Transfusion Reaction / Comment(s): clausterphobia. pt's sister had diff breathing from anesthesia Past Psychological History: Anxiety, Depression, Panic Disorder Smoking Status: Never smoker Past Alcohol Use History: None Reported Past Drug Use History: None Reported - Past Family History Son(s) Additional Family Medical History / Comment(s): She has 2 sons with no major medical problems. Patient does not have any daughters. Mother Additional Family Medical History / Comment(s): Mother at age 80 from renal failure. Father Additional Family Medical History / Comment(s): Father at age 67 with history of VA and stroke Brother(s) Family Medical History: Cancer Additional Family Medical History / Comment(s): She has total of 5 brothers and all had history of coronary artery disease and CABG, hypertension, hyperlipidemia, diabetes. Sister(s) Family Medical History: Cancer Additional Family Medical History / Comment(s): one sister of colon cancer, second sister had ovarian cancer Medications and Allergies Home Medications Medication Instructions Recorded Confirmed Type Atorvastatin [Lipitor] 80 mg PO HS 01/22/18 10/06/21 History Levothyroxine Sodium 150 mcg PO DAILY 01/22/18 10/06/21 History Albuterol Sulfate [Ventolin HFA] 2 puff INHALATION RT-Q4H PRN 10/10/19 10/06/21 History Sertraline [Zoloft] 100 mg PO HS 10/10/19 10/06/21 History Aspirin 81 mg PO DAILY chew 10/15/19 10/06/21 Rx Ferrous Sulfate [Iron (65 MG 325 mg PO DAILY 04/27/20 10/06/21 History Elemental)] Fluticasone Nasal [place] [Flonase 1 spray EA NOSTRIL DAILY PRN 04/27/20 10/06/21 History Nasal [place]] Fluticasone Propion/Salmeterol 1 puff INHALATION RT-BID PRN 04/27/20 10/06/21 History [Advair 250-50 Diskus] Furosemide [Lasix] 40 mg PO HS 04/27/20 10/06/21 History Nystatin 100,000Unit/gm Cream 1 applic TOPICAL BID 04/27/20 10/06/21 History [Mycostatin Cream] Potassium Chloride ER [K-Dur 10] 10 meq PO DAILY 04/27/20 10/06/21 History Valsartan 80 mg PO DAILY 04/27/20 10/06/21 History metFORMIN HCL [Glucophage] 1,000 mg PO BID 04/27/20 10/06/21 History Cyclobenzaprine [Flexeril] 10 mg PO TID PRN 10/06/21 10/06/21 History [place]ran Carbonate ER [Lithobid] 450 mg PO HS 10/06/21 10/06/21 History Meloxicam [Mobic] 15 mg PO DAILY 10/06/21 10/06/21 History Semaglutide [Rybelsus] 3 mg PO DAILY 10/06/21 10/06/21 History lamoTRIgine [lamoTRIgine ER] 50 mg PO HS 10/06/21 10/06/21 History lamoTRIgine [lamoTRIgine ER] 100 mg PO HS 10/06/21 10/06/21 History Allergies Allergy/AdvReac Type Severity Reaction Status Date / Time sulfamethoxazole Allergy Unknown Rash/Hives, Verified 10/06/21 18:42 [From Bactrim] SOB trimethoprim [From Bactrim] Allergy Unknown Rash/Hives, Verified 10/06/21 18:42 SOB Physical Exam Vitals: Vital Signs Temp Pulse Pulse Resp BP Pulse Ox 10/06/21 16:10 60 10/06/21 16:00 98.8 F 60 16 122/75 96 Intake and Output 10/06/21 10/06/21 10/06/21 06:59 14:59 22:59 Other: Weight 99.79 kg Results CBC & Chem 7: 10/06/21 16:21 10/06/21 16:21 Labs: Abnormal Lab Results - Last 24 Hours (Table) 10/06/21 10/06/21 10/06/21 Range/Units 16:21 16:21 16:25 MCHC 30.9 L (31.0-37.0) g/dL Carbon Dioxide 20 L (22-30) mmol/L Plasma Lactic Acid Mariano 2.1 H* (0.7-2.0) mmol/L Urine Protein (Negative) 10/06/21 10/06/21 Range/Units 17:08 20:41 MCHC (31.0-37.0) g/dL Carbon Dioxide (22-30) mmol/L Plasma Lactic Acid Mariano 2.4 H* (0.7-2.0) mmol/L Urine Protein Trace H (Negative)
[2021-10-07] MEDS: ASPIRIN 81 MG PO SCH ×2 (02:46→08:38)
[2021-10-07] MEDS: SODIUM CHLORIDE 0.9% 1,000 ML IV SCH ×2 (02:47→15:07)
[2021-10-07] MEDS: SYMBICORT 80-4.5 MCG INHALER INHALATION SCH ×2 (07:35→19:46)
[2021-10-07] MEDS: HEPARIN SODIUM,PORCINE/PF 5,000 UNIT/0.5 ML SYRINGE SQ SCH ×3 (08:38→23:53)
--- NOTE | 2021-10-07 08:39 | US ---
EXAMINATION TYPE: US abdomen limited DATE OF EXAM: 10/07/2021 COMPARISON: US 10/11/2019 CLINICAL HISTORY: 66-year-old female RUQ and chest pain TECHNIQUE: Multiple sonographic images of the right upper quadrant are obtained. FINDINGS: EXAM MEASUREMENTS: Liver Length: 21.2 cm Gallbladder Wall: 0.2 cm CBD: 0.4 cm Right Kidney: 10.6 x 4.7 x 5.1 cm [employer] NOTES:Difficult study due to morbidly obese patient Pancreas: obscured by overlying midline bowel gas Liver: enlarged, increased echogenicity. There is a geographic 3.3cm hypoechoic area near the raymundo hepatis . Gallbladder: wnl Evidence for sonographic Montiel's sign: no CBD: wnl Right Kidney: wnl IMPRESSION: 1. Hepatomegaly at 21.2 cm with increased echogenicity and some focal fatty sparing at the raymundo hepa tis. Findings suggest hepatic steatosis. Correlate with LFTs, lipid profile, and patient risk factors . 2. No gallstones or biliary ductal dilatation.
[2021-10-07] MEDS: INSULIN ASPART (NovoLOG) 100 UNIT/ML VIAL SQ SCH ×4 (08:48→21:49)
[2021-10-07 08:49] LABS: Glucose,Whole Blood 113 mg/dL (70-110)
[2021-10-07] MEDS ORDERED: VALSARTAN 80 MG TAB PO SCH (09:00)
[2021-10-07] MEDS: LEVOTHYROXINE 75 MCG TAB PO SCH (10:34)
[2021-10-07 11:23] LABS: Glucose,Whole Blood 113 mg/dL (70-110)
--- NOTE | 2021-10-07 12:50 | P.CRDCN ---
History of Present Illness Consult date: 10/07/21 Requesting physician: Myke Arce Reason for Consult (text): chest pain Chief complaint: multiple History of present illness: This is a 66-year-old male patient who says she follows with Dr. ANTONIO Reyes in the office. She has a history of hypertension, hyperlipidemia, diabetes, obstructive sleep apnea for which she uses a CPAP and asthma. She did undergo cardiac catheterization in 2019 which showed normal coronaries with mild calcification of the proximal LAD. Presented to the emergency department with multiple complaints. She was diagnosed with a urinary tract infection on September 21 was given a seven-day course of Keflex. Recently she's felt that her symptoms have not resolved. She presented to the emergency department with complaints of chest discomfort radiating to both shoulders and lasting a few minutes, occurring randomly and resolving spontaneously. Also complaints of shortness of breath, episodes of dizziness, swelling, redness and pain in her legs, fever, chills and diaphoresis as well as low back pain. She's also been having episodes of dizziness and lightheadedness but no syncope. EKG shows sinus bradycardia with heart rate of 57 with no evidence of ischemia. Troponins have been negative. Blood pressure this morning was on the low side but she is asymptomatic. She's been afebrile. 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 Past Anesthesia/Blood Transfusion Reactions: Family History of Problems w/ Anesthesia, Motion Sickness Additional Past Anesthesia/Blood Transfusion Reaction / Comment(s): clausterphobia. pt's sister had diff breathing from anesthesia Past Psychological History: Anxiety, Depression, Panic Disorder Smoking Status: Never smoker Past Alcohol Use History: None Reported Past Drug Use History: None Reported - Past Family History Son(s) Additional Family Medical History / Comment(s): She has 2 sons with no major medical problems. Patient does not have any daughters. Mother Additional Family Medical History / Comment(s): Mother at age 80 from renal failure. Father Additional Family Medical History / Comment(s): Father at age 67 with history of [address] and stroke Brother(s) Family Medical History: Cancer Additional Family Medical History / Comment(s): She has total of 5 brothers and all had history of coronary artery disease and CABG, hypertension, hyperlipidemia, diabetes. Sister(s) Family Medical History: Cancer Additional Family Medical History / Comment(s): one sister of colon cancer, second sister had ovarian cancer Medications and Allergies Home Medications Medication Instructions Recorded Confirmed Type Atorvastatin [Lipitor] 80 mg PO HS 01/22/18 10/06/21 History Levothyroxine Sodium 150 mcg PO DAILY 01/22/18 10/06/21 History Albuterol Sulfate [Ventolin HFA] 2 puff INHALATION RT-Q4H PRN 10/10/19 10/06/21 History Sertraline [Zoloft] 100 mg PO HS 10/10/19 10/06/21 History Aspirin 81 mg PO DAILY chew 10/15/19 10/06/21 Rx Ferrous Sulfate [Iron (65 MG 325 mg PO DAILY 04/27/20 10/06/21 History Elemental)] Fluticasone Nasal [place] [Flonase 1 spray EA NOSTRIL DAILY PRN 04/27/20 10/06/21 History Nasal [place]] Fluticasone Propion/Salmeterol 1 puff INHALATION RT-BID PRN 04/27/20 10/06/21 History [Advair 250-50 Diskus] Furosemide [Lasix] 40 mg PO HS 04/27/20 10/06/21 History Nystatin 100,000Unit/gm Cream 1 applic TOPICAL BID 04/27/20 10/06/21 History [Mycostatin Cream] Potassium Chloride ER [K-Dur 10] 10 meq PO DAILY 04/27/20 10/06/21 History Valsartan 80 mg PO DAILY 04/27/20 10/06/21 History metFORMIN HCL [Glucophage] 1,000 mg PO BID 04/27/20 10/06/21 History Cyclobenzaprine [Flexeril] 10 mg PO TID PRN 10/06/21 10/06/21 History [place] Carbonate ER [Lithobid] 450 mg PO HS 10/06/21 10/06/21 History Meloxicam [Mobic] 15 mg PO DAILY 10/06/21 10/06/21 History Semaglutide [Rybelsus] 3 mg PO DAILY 10/06/21 10/06/21 History lamoTRIgine [lamoTRIgine ER] 50 mg PO HS 10/06/21 10/06/21 History lamoTRIgine [lamoTRIgine ER] 100 mg PO HS 10/06/21 10/06/21 History Allergies Allergy/AdvReac Type Severity Reaction Status Date / Time sulfamethoxazole Allergy Unknown Rash/Hives, Verified 10/06/21 18:42 [From Bactrim] SOB trimethoprim [From Bactrim] Allergy Unknown Rash/Hives, Verified 10/06/21 18:42 SOB Physical Exam Vitals: Vital Signs Temp Pulse Pulse Resp BP BP Pulse Ox 10/07/21 08:31 16 10/07/21 08:25 51 L 16 93/53 96 10/07/21 07:37 98 10/07/21 02:00 98.0 F 55 L 16 99/53 10/06/21 23:45 98.0 F 81 18 120/86 97 10/06/21 16:10 60 10/06/21 16:00 98.8 F 60 16 122/75 96 Intake and Output 10/06/21 10/07/21 10/07/21 22:59 06:59 14:59 Intake Total 675 Balance 675 Intake: Intake, IV Titration 675 Amount Sodium Chloride 0.9% 1, 675 000 ml @ 75 mls/hr IV . [id number] [facility] Rx#:[id number] Other: Voiding Method Toilet # Voids 1 Weight 99.79 kg 99.79 kg PHYSICAL EXAMINATION: This is a 66-year-old female in no apparent distress at the time of my examination. VITAL SIGNS: Blood pressure 93/53, heart rate 51, respirations 16, temp 98.0. Patient is 96% on room air. HEENT: Head is atraumatic, normocephalic. Pupils are equal, round. Sclerae anicteric. Conjunctivae are clear. Mucous membranes of the mouth are moist. Neck is supple. There is no elevated jugular venous pressure. No carotid bruit is heard. CHEST EXAMINATION: Clear to auscultation bilaterally. No wheezes rales or rhonchi. Respirations even and nonlabored. HEART EXAMINATION: Heart regular, positive S1 and S2. No S3. No S4. No clicks, rubs or murmurs. ABDOMEN: Soft, nontender. Bowel sounds are heard. No organomegaly noted. EXTREMITIES: 2+ peripheral pulses with no evidence of peripheral edema and no calf tenderness noted. NEUROLOGIC EXAMINATION: Patient is awake, alert and oriented x3. Results 10/06/21 16:10/06/21 16: Cardiac Enzymes 10/06/21 10/06/21 10/07/21 Range/Units 16:21 16: 09:09 AST 25 (14-36) U/L Troponin I <0.012 <0.012 (0.000-0.034) ng/mL Coagulation 10/06/21 Range/Units 16:21 PT 10.7 (9.0-12.0) sec APTT 23.0 (22.0-30.0) sec CBC 10/06/21 Range/Units 16:21 WBC 8.4 (3.8-10.6) k/uL RBC 4.42 (3.80-5.40) m/uL Hgb 11.7 (11.4-16.0) gm/dL Hct 37.8 (34.0-46.0) % Plt Count 323 (150-450) k/uL Comprehensive Metabolic Panel 10/06/21 Range/Units 16:21 Sodium 141 (137-145) mmol/L Potassium 4.9 (3.5-5.1) mmol/L Chloride 107 (98-107) mmol/L Carbon Dioxide 20 L (22-30) mmol/L BUN 13 (7-17) mg/dL Creatinine 0.83 (0.52-1.04) mg/dL Glucose 96 (74-99) mg/dL Calcium 9.3 (8.4-10.2) mg/dL AST 25 (14-36) U/L ALT 20 (4-34) U/L Alkaline Phosphatase 58 (38-126) U/L Total Protein 6.5 (6.3-8.2) g/dL Albumin 4.1 (3.5-5.0) g/dL Current Medications Generic Name Dose Route Start Last Admin Trade Name Freq PRN Reason Stop Dose Admin Aspirin 81 mg 10/07/21 00:35 10/07/21 08:38 Aspirin 81 Mg PO 81 mg DAILY RIKY Administration Atorvastatin Calcium 80 mg 10/07/21 21:00 Atorvastatin 80 Mg Tab PO HS RIKY Budesonide/Formoterol Fumarate 2 puff 10/07/21 08:00 10/07/21 07:35 Symbicort 80-4.5 Mcg Inhaler INHALATION 2 puff RT-BID RIKY Administration Furosemide 40 mg 10/07/21 21:00 Furosemide 40 Mg Tab PO HS RIKY Heparin Sodium (Porcine) 5,000 unit 10/07/21 08:00 10/07/21 08:38 Heparin Sodium,Porcine/Pf 5,000 Unit/0.5 Ml Syringe SQ 5,000 unit Q8HR RIKY Administration Sodium Chloride 1,000 mls @ 75 mls/hr 10/07/21 00:45 10/07/21 02:47 Saline 0.9% IV 75 mls/hr .[id number] RIKY Administration Insulin Aspart 0 unit 10/07/21 07:30 10/07/21 11:22 Insulin Aspart (Novolog) 100 Unit/Ml Vial SQ Not Given ACHS [facility] Protocol Levothyroxine Sodium 150 mcg 10/07/21 06:30 10/07/21 10:34 Levothyroxine 75 Mcg Tab PO 150 mcg DAILY@0630 RIKY Administration Naloxone HCl 0.2 mg 10/06/21 18:39 Naloxone 0.4 Mg/Ml 1 Ml Vial IV Q2M PRN Opioid Reversal Sertraline HCl 100 mg 10/07/21 21:00 Sertraline 100 Mg Tab PO HS RIKY Valsartan 80 mg 10/07/21 09:00 10/07/21 08:30 Valsartan 80 Mg Tab PO Not Given DAILY RIKY Intake and Output 10/06/21 10/07/21 10/07/21 22:59 06:59 14:59 Intake Total 675 Balance 675 Intake: Intake, IV Titration 675 Amount Sodium Chloride 0.9% 1, 675 000 ml @ 75 mls/hr IV . [id number] [facility] Rx#:[id number] Other: Voiding Method Toilet # Voids 1 Weight 99.79 kg 99.79 kg 10/06/21 16:21 10/06/21 16:21 EKG Interpretations (text) sinus rhythm Assessment and Plan Assessment: #1 multiple complaints including chest pain, shortness of breath, right upper quadrant pain and urinary frequency, urgency and dysuria as well as low back pain, acute coronary event has been ruled out. #2 hypertension, currently with hypotension #3 hyperlipidemia #4 diabetes #5 morbid obesity #6 asthma #7 obstructive sleep apnea on CPAP Plan: From cardiology's perspective no need for further cardiac workup at this time. We will decrease the valsartan to 40 mg. She will need to monitor her blood pressure at home. She will follow-up in the office as an outpatient with Dr. Reyes. CREAM BEATER note has been reviewed, I agree with a documented findings and plan of care. Patient was seen and examined.
[2021-10-07] MEDS ORDERED: IPRATROPIUM-ALBUTEROL 3 ML NEB INHALATION PRN (14:09)
--- NOTE | 2021-10-07 14:10 | P.PN ---
Progress Note - Text Progress Note Date: 10/07/21 Patient was seen and examined. No acute events overnight. Patient continues to have multiple complaints. She reports chest pain across her chest wall that is sore in nature. This pain radiates to her bilateral shoulders. She continues to report suprapubic discomfort and right upper quadrant abdominal pain. She denies any nausea or vomiting. No fever or chills. No shortness of breath, palpitations or lightheadedness. General: [non toxic], [no distress], [appears at stated age] Derm: [warm], [dry] Head: [atraumatic], [normocephalic], [symmetric] Eyes: [EOMI], [no lid lag], [anicteric sclera] Mouth: [no lip lesion], [mucus membranes moist] Cardiovascular: [S1S2 reg], [no murmur], [positive DP pulse bilateral] Lungs: [CTA bilateral], [no rhonchi, no rales] , [no accessory muscle use] Abdominal: [soft], [right upper quadrant tenderness without rebound], [no guarding], [no appreciable organomegaly] Ext: [no gross muscle atrophy], [no edema], [no contractures] Neuro: [no focal neuro deficits] Psych: [Alert], [oriented], [appropriate affect] #Chest pain #Lactic acidosis #Right upper quadrant abdominal pain #Dysuria Chronic conditions: Coronary artery disease, hypertension, hyperlipidemia, asthma, type II DM Troponins were trended and ACS is ruled out. Appears to be musculoskeletal in nature. Continue aspirin and Lipitor. Telemetry monitoring. Follow-up echocardiogram. Lactic acidosis has resolved with IV hydration. No signs of active infection or sepsis. Right upper quadrant ultrasound shows hepatic steatosis. Continue to monitor. Urinalysis negative for leukocyte esterase or nitrite. Continue to monitor. Restart home medications. Insulin sliding scale along with Accu-Cheks 4 times a day and hypoglycemic precautions. DuoNeb as needed for shortness of breath and wheezing. Anticipated DC home tomorrow after echocardiogram is complete.
[2021-10-07 17:12] LABS: Glucose,Whole Blood 107 mg/dL (70-110)
[2021-10-07] MEDS ORDERED: LAMOTRIGINE 50 MG PO SCH (21:00)
[2021-10-07] MEDS: FUROSEMIDE 40 MG TAB PO SCH (21:35)
[2021-10-07] MEDS: ATORVASTATIN 80 MG TAB PO SCH (21:35)
[2021-10-07] MEDS: LITHIUM CARBONATE ER 450 MG TABLET.ER PO SCH (21:36)
[2021-10-07] MEDS: lamoTRIgine 25 MG TAB PO SCH (21:36)
[2021-10-07 21:51] LABS: Glucose,Whole Blood 146 mg/dL (70-110)
[2021-10-07] MEDS: SERTRALINE 100 MG TAB PO SCH (22:37)
[2021-10-07] MEDS: ACETAMINOPHEN TAB 325 MG TAB PO PRN (22:37)
[2021-10-08] MEDS: SODIUM CHLORIDE 0.9% 1,000 ML IV SCH ×2 (06:03→15:59)
[2021-10-08] MEDS: LEVOTHYROXINE 75 MCG TAB PO SCH (06:08)
[2021-10-08 07:17] LABS: Glucose,Whole Blood 128 mg/dL (70-110)
[2021-10-08] MEDS: lamoTRIgine 25 MG TAB PO SCH ×2 (07:21→20:20)
[2021-10-08] MEDS: ASPIRIN 81 MG PO SCH (07:22)
[2021-10-08] MEDS: VALSARTAN 40 MG TAB PO SCH (07:22)
[2021-10-08] MEDS: HEPARIN SODIUM,PORCINE/PF 5,000 UNIT/0.5 ML SYRINGE SQ SCH ×3 (07:22→20:20)
[2021-10-08] MEDS: INSULIN ASPART (NovoLOG) 100 UNIT/ML VIAL SQ SCH ×4 (07:25→20:19)
[2021-10-08] MEDS: SYMBICORT 80-4.5 MCG INHALER INHALATION SCH ×2 (07:50→20:04)
[2021-10-08] MEDS ORDERED: MAG HYDROX/AL HYDROX/SIMETH 30 ML, HYOSCYAMINE ELIXIR 10 ML, LIDOCAINE VISCOUS 2% 10 ML PO ONE ×3 (10:41)
--- NOTE | 2021-10-08 11:36 | CA ---
Transthoracic Echo Report Name: Belinda Welch Age: 66 Gender: F : 1955 Exam Date: 10/08/2021 08:54 Exam Location: [facility] Ht (in): 58 Wt (lb): 220 Ordering Physician: Maggie Wilson MD Attending/Referring Phys: Director Of Investigations Cami Herrera RDCS Procedure CPT: Indications: Chest Pain Cardiac Hx: Technical Quality: Technically difficult study Contrast 1: Lumason Total Dose (mL): 4 Contrast 2: Total Dose (mL): MEASUREMENTS (Male / Female) Normal Values 2D ECHO LV Diastolic Diameter PLAX 5.1 cm 4.2 - 5.9 / 3.9 - 5.3 cm LV Systolic Diameter PLAX 3.8 cm IVS Diastolic Thickness 1.1 cm 0.6 - 1.0 / 0.6 - 0.9 cm LVPW Diastolic Thickness 1.4 cm 0.6 - 1.0 / 0.6 - 0.9 cm LV Relative Wall Thickness 0.5 RV Internal Dim ED PLAX 4.0 cm LA Volume 93.0 cm??? 18 - 58 / 22 - 52 cm??? M-MODE Aortic Root Diameter MM 2.6 cm LA Systolic Diameter MM 4.6 cm LA Ao Ratio MM 1.8 DOPPLER AV Peak Velocity 165.9 cm/s AV Peak Gradient 11.0 mmHg LVOT Peak Velocity 113.2 cm/s LVOT Peak Gradient 5.1 mmHg MV Area PHT 7.3 cm??? Mitral E Point Velocity 84.9 cm/s Mitral A Point Velocity 52.4 cm/s Mitral E to A Ratio 1.6 MV Deceleration Time 103.6 ms MV E' Velocity 8.2 cm/s Mitral E to MV E' Ratio 10.4 TR Peak Velocity 291.5 cm/s TR Peak Gradient 34.0 mmHg Right Ventricular Systolic Press 38.2 mmHg FINDINGS Left Ventricle Mildly increased left ventricular wall thickness. Normal left ventricular systolic function with no obvious regional wall motion abnormalities. Left ventricular ejection fraction is estimated at 55-60 %. Right Ventricle Moderate right ventricular dilatation. Mild pulmonary hypertension. Right Atrium Right atrium not well visualized. Left Atrium Severely increased left atrial volume. Moderately increased left atrial area. Mitral Valve Mild mitral regurgitation. Aortic Valve No aortic valve stenosis or regurgitation. Tricuspid Valve Mild tricuspid regurgitation. Pulmonic Valve Trace pulmonic regurgitation. Pericardium No pericardial effusion. Aorta Normal size aortic root and proximal ascending aorta. CONCLUSIONS Technically difficult study for interpretation Normal left ventricular dimension and systolic function Mild mitral regurgitation Previewed by: Dr. Conor Richards MD (Electronically Signed) Final Date: 08 October 2021 11:35
[2021-10-08 11:54] LABS: Glucose,Whole Blood 157 mg/dL (70-110)
[2021-10-08 17:12] LABS: Glucose,Whole Blood 169 mg/dL (70-110)
--- NOTE | 2021-10-08 17:27 | P.PN ---
Subjective Progress Note Date: 10/08/21 Hospital course: Patient is a very pleasant 66-year-old female with a PMH of coronary artery disease, hypertension, hyperlipidemia, hypothyroidism, type II DM, asthma who presents to the emergency room with multiple complaints. The patient reports that over the past 2-3 days, she has been experiencing intermittent diffuse chest discomfort, throbbing in nature, radiating to both shoulders, lasting for a few minutes at a time and then resolving spontaneously, with associated shortn ess of breath and nausea. The patient also reports being diagnosed with UTI 1-2 weeks ago and given a course of 7 days of Keflex which she completed. She reports however ongoing urinary complaints with dysuria and decreased urine output. Denies fever, chills, cough. Also reports right upper quadrant abdominal pain occurring intermittently over the past several months. Chest x- ray in the emergency room was unremarkable with EKG showing sinus bradycardia at [address]/T-wave changes noted as reviewed by me. Laboratory evaluation was remarkable for a lactic acid of 2.1 and an unremarkable UA. Patient was admitted under services of consultation to cardiology. Update, patient was going to be discharged home after clearance from cardiology and medically stable. However received message from pharmacy that preliminary blood culture revealing gram-positive cocci in clusters which is likely a non-identifiable micrococcus or anaerobe, believed to be contaminate as second culture showing no growth 24 hours but cannot become completely ruled out until second culture showing no growth 48 hours. RN updated and updated patient and the patient will not be discharged until second culture showing no growth 48 hours. Patient showing no signs/symptoms of infection at this time, including no fevers, chills, or leukocytosis so we will hold off on ordering any antibiotic coverage pending further results. Physical exam: Vital signs reviewed and stable. General: Nontoxic, no distress and appears stated age. Derm: Skin warm and dry, normal coloration for ethnicity. Head: Atraumatic, normocephalic and symmetric. Eyes: EOMs intact, no lid lag, and anicteric sclera Mouth: no lip lesions, mucus membranes moist Cardiovascular: regular rate and rhythm with normal S1S2, no murmur, positive posterior tibial pulses bilaterally, and cap refill < 2 seconds. Lungs: Respirations even, regular, and unlabored on room air. Lungs CTA bilaterally, no rhonchi, no rales, no wheezing, and no accessory muscle usage. Abdominal: soft, nontender to palpation, no guarding, no appreciable organomegaly Ext: ROM intact. No gross muscle atrophy, no edema, no contractures Neuro: Speech clear, face symmetrical and CN II-XII grossly intact with no noted focal neuro deficits Psych: Alert and oriented to person, place, time, and situation. Appropriate and pleasant affect. Assessment and Plan of Care: Chest pain, rule out acute coronary event Hypertension Hyperlipidemia -Cardiology consult, appreciate further recommendations -Telemetry monitoring -Troponins negative at less than 0.0123 draws -Cardiac diet, NPO at midnight -Aspirin, atorvastatin, and metoprolol -Echocardiogram completed revealing normal EF of 55-60% with mild mitral regurgitation. Hypothyroidism -Continue daily medication regimen of levothyroxine [id number] Diabetes mellitus -Hold metformin in place patient on glycemic protocol with NovoLog sliding scale Anxiety, depression, and panic disorder -Patient to continue with daily medication regimen consisting of sertraline, lamotrigine, and lithium -[place] level to be obtained CODE STATUS: Full code DVT prophylaxis: Heparin Discussed with: Patient and RN Anticipated discharge date: Tomorrow Anticipated discharge place: Home A total of 39 minutes was spent on the care of this complex patient more than 50% of the time was spent in counseling and care coordination. I reviewed the documentation as provided by the STONEY above, who is the original author of this note. I agree with the documented assessment and plan, with the following changes: none Objective - Vital Signs Vital signs: Vital Signs Temp 98 F 10/08/21 14:15 Pulse 64 10/08/21 14:15 Resp 18 10/08/21 14:15 BP 96/59 10/08/21 14:15 Pulse Ox 94 L 10/08/21 14:15 FiO2 Intake & Output 10/07/21 10/08/21 10/08/21 18:59 06:59 18:59 Intake Total 120 Balance 120 Intake: Oral 120 Other: Voiding Method Toilet Toilet Toilet # Voids 2 2 # Bowel Movements 0 - Labs CBC & Chem 7: 10/06/21 16:21 10/06/21 16:21 Labs: Abnormal Lab Results - Last 24 Hours (Table) 10/07/21 10/08/21 10/08/21 Range/Units 21:47 07:06 11:34 POC Glucose (mg/dL) 146 H 128 H 157 H (70-110) mg/dL Microbiology - Last 24 Hours (Table) 10/06/21 16:25 Blood Culture Gram Stain - Preliminary Blood 10/06/21 16:25 Blood Culture - Final Blood 10/06/21 16:35 Blood Culture - Preliminary Blood No Growth after 24 hours
[2021-10-08 20:01] LABS: Glucose,Whole Blood 197 mg/dL (70-110)
[2021-10-08] MEDS: ATORVASTATIN 80 MG TAB PO SCH (20:20)
[2021-10-08] MEDS: SERTRALINE 100 MG TAB PO SCH (20:20)
[2021-10-08] MEDS: FUROSEMIDE 40 MG TAB PO SCH (20:20)
[2021-10-08] MEDS: LITHIUM CARBONATE ER 450 MG TABLET.ER PO SCH (20:20)
[2021-10-09 00:52] VITALS: RESP 16
[2021-10-09] MEDS: SODIUM CHLORIDE 0.9% 1,000 ML IV SCH ×2 (05:27→20:11)
[2021-10-09] MEDS: LEVOTHYROXINE 75 MCG TAB PO SCH (05:28)
[2021-10-09 07:01] LABS: Glucose,Whole Blood 120 mg/dL (70-110)
[2021-10-09] MEDS: INSULIN ASPART (NovoLOG) 100 UNIT/ML VIAL SQ SCH ×3 (08:12→17:52)
[2021-10-09] MEDS: ASPIRIN 81 MG PO SCH (08:14)
[2021-10-09] MEDS: lamoTRIgine 25 MG TAB PO SCH (08:15)
[2021-10-09] MEDS: VALSARTAN 40 MG TAB PO SCH (08:15)
[2021-10-09] MEDS: ACETAMINOPHEN TAB 325 MG TAB PO PRN (08:15)
[2021-10-09] MEDS: HEPARIN SODIUM,PORCINE/PF 5,000 UNIT/0.5 ML SYRINGE SQ SCH ×2 (08:17→16:36)
[2021-10-09] MEDS: SYMBICORT 80-4.5 MCG INHALER INHALATION SCH ×2 (08:22→20:02)
[2021-10-09 09:08] LABS: HCT 35.3 % (37.2-46.3); HGB 10.9 g/dL (12.0-15.0); MCH 26.5 pg (27.0-32.0); MCHC 30.9 g/dL (32.0-37.0); MCV 85.9 fL (80.0-97.0); Mean Platelet Volume 12.4 fL (9.5-12.2); NRBC Per 100 WBC 0 /100 WBCS (0.0-0.0); Platelet Count 306 X 10*3/uL (140-440); RBC 4.11 X 10*6/uL (4.10-5.20); RDW 14.6 % (11.5-14.5); WBC 8.89 X 10*3/uL (4.50-10.00)
[2021-10-09 09:29] LABS: African American GFR (CKD) 78.3 (60.0-200.0); Albumin 4.1 g/dL (3.8-4.9); Albumin/Globulin Ratio 1.86 (1.60-3.17); Anion Gap 11.8 mmol/L (10.00-18.00); BUN/Creat Ratio 17.56 Ratio (12.00-20.00); Blood Urea Nitrogen 15.8 mg/dL (9.0-27.0); Calcium 9.4 mg/dL (8.7-10.3); Carbon Dioxide 24.2 mmol/L (20.0-27.5); Globulin 2.2 g/dL (1.6-3.3); Non-African American GFR(CKD) 67.6 (60.0-200.0); Potassium 4.9 mmol/L (3.5-5.5); Total Bilirubin 0.2 mg/dL (0.30-1.20); Total Protein 6.3 g/dL (6.2-8.2)
[2021-10-09] MEDS ORDERED: PREGABALIN 50 MG CAP PO STA (10:31)
[2021-10-09 12:22] LABS: Glucose,Whole Blood 142 mg/dL (70-110)
[2021-10-09 13:10] VITALS: BP 119/67; PULSE 56; TEMP 98.7
--- NOTE | 2021-10-09 15:31 | P.DS ---
Providers Date of admission: 10/06/21 18:46 Expected date of discharge: 10/09/21 Attending physician: Kamila Celaya MD Consults: 10/07/21 00:33 Consult Physician Urgent Consulting Provider: Conor Richards Consult Reason/Comments: Chest pain Do you want consulting provider notified?: Yes Primary care physician: Jacki Freeman Hospital Course: Discharge Diagnosis: Chest pain, acute coronary event ruled out. No medication changes made at this time. Patient to continue cardiac medication regimen with atorvastatin, aspirin, valsartan, and furosemide and follow up outpatient with cardiology in 2 weeks. Hypertension. Monitor vital signs and continue daily medication regimen with valsartan. Hyperlipidemia. Continue daily medication regimen with atorvastatin. Hypothyroidism. Continue daily medication regimen of levothyroxine [id number] Diabetes mellitus. Resume metformin. Anxiety, depression, and panic disorder. Patient to continue with daily medication regimen consisting of sertraline, lamotrigine, and lithium. Hospital Course: Patient is a very pleasant 66-year-old female with a PMH of coronary artery disease, hypertension, hyperlipidemia, hypothyroidism, type II DM, asthma who presents to the emergency room with multiple complaints. The patient reports t hat over the past 2-3 days, she has been experiencing intermittent diffuse chest discomfort, throbbing in nature, radiating to both shoulders, lasting for a few minutes at a time and then resolving spontaneously, with associated shortness of breath and nausea. The patient also reports being diagnosed with UTI 1-2 weeks ago and given a course of 7 days of Keflex which she completed. She reports h owever ongoing urinary complaints with dysuria and decreased urine output. Denies fever, chills, cough. Also reports right upper quadrant abdominal pain occurring intermittently over the past several months. Chest x-ray in the emergency room was unremarkable with EKG showing sinus bradycardia at [address]/T-wave changes noted as reviewed by me. Laboratory evaluation was remarkable for a lactic acid of 2.1 and an unremarkable UA. Patient was admitted under services of consultation to cardiology. Troponins were trended and negative at less than 0.0122 draws. Echocardiogram completed revealing normal EF of 55-60% with mild mitral regurgitation. Cardiology evaluating ruling out an acute coronary syndrome. Patient was initially going to be discharged home after clearance from cardiology as she was medically stable however a message was received from pharmacy that preliminary blood cultures did reveal gram-positive cocci in chains likely believed to be a non-identifiable micrococcus or anaerobe resulting from contaminant. Patient's discharge was postponed an additional 24 hours to monitor for any signs/symptoms of infection and final culture results. Blood cultures still showing is pending, called and discussed blood culture results with [place] [facility] lab and was informed blood culture 1 out of 2 was positive for micrococcus confirming suspected contaminant and Second blood culture negative showing no growth 48 hours. Patient remains free from any signs/symptoms of infection. She is medically stablefor discharge home with family. Patient to follow up outpatient with PCP in 1-2 days and cardiology in 1 week. No medication changes were made during this stay. Physical exam: Vital signs reviewed and stable. General: Nontoxic, no distress and appears stated age. Obese Derm: Skin warm and dry, normal coloration for ethnicity. Head: Atraumatic, normocephalic and symmetric. Eyes: EOMs intact, no lid lag, and anicteric sclera Mouth: no lip lesions, mucus membranes moist Cardiovascular: regular rate and rhythm with normal S1S2, no murmur, positive posterior tibial pulses bilaterally, and cap refill < 2 seconds. Lungs: Respirations even, regular, and unlabored on room air. Lungs CTA bilaterally, no rhonchi, no rales, no wheezing, and no accessory muscle usage. Abdominal: soft, nontender to palpation, no guarding, no appreciable organomegaly Ext: ROM intact. No gross muscle atrophy, nonpitting bilateral lower extremity edema, no contractures Neuro: Speech clear, face symmetrical and CN II-XII grossly intact with no noted focal neuro deficits Psych: Alert and oriented to person, place, time, and situation. Appropriate and pleasant affect. A total of 38 minutes of time were spent preparing this complex discharge summary. Pt was discharged on 10/09/21 at 3:13 PM. I reviewed the documentation as provided by the STONEY above, who is the original author of this note. I agree with the documented assessment and plan, with the following changes: none Patient Condition at Discharge: Stable Plan - Discharge Summary New Discharge Prescriptions: Continue Atorvastatin [Lipitor] 80 mg PO HS Levothyroxine Sodium 150 mcg PO DAILY Albuterol Sulfate [Ventolin HFA] 2 puff INHALATION RT-Q4H PRN PRN Reason: Shortness Of Breath Sertraline [Zoloft] 100 mg PO HS Aspirin 81 mg PO DAILY chew Ferrous Sulfate [Iron (65 MG Elemental)] 325 mg PO DAILY Fluticasone Nasal [place] [Flonase Nasal [place]] 1 spray EA NOSTRIL DAILY PRN PRN Reason: Allergy Symptoms Valsartan 80 mg PO DAILY Nystatin 100,000Unit/gm Cream [Mycostatin Cream] 1 applic TOPICAL BID metFORMIN HCL [Glucophage] 1,000 mg PO BID Potassium Chloride ER [K-Dur 10] 10 meq PO DAILY Furosemide [Lasix] 40 mg PO HS Fluticasone Propion/Salmeterol [Advair 250-50 Diskus] 1 puff INHALATION RT- BID PRN PRN Reason: Shortness Of Breath Cyclobenzaprine [Flexeril] 10 mg PO TID PRN PRN Reason: Muscle Pain lamoTRIgine [lamoTRIgine ER] 50 mg PO HS lamoTRIgine [lamoTRIgine ER] 100 mg PO HS Semaglutide [Rybelsus] 3 mg PO DAILY [place] Carbonate ER [Lithobid] 450 mg PO HS Meloxicam [Mobic] 15 mg PO DAILY Discharge Medication List Atorvastatin [Lipitor] 80 mg PO HS 01/22/18 [History] Levothyroxine Sodium 150 mcg PO DAILY 01/22/18 [History] Albuterol Sulfate [Ventolin HFA] 2 puff INHALATION RT-Q4H PRN 10/10/19 [History] Sertraline [Zoloft] 100 mg PO HS 10/10/19 [History] Aspirin 81 mg PO DAILY chew 10/15/19 [Rx] Ferrous Sulfate [Iron (65 MG Elemental)] 325 mg PO DAILY 04/27/20 [History] Fluticasone Nasal [place] [Flonase Nasal [place]] 1 spray EA NOSTRIL DAILY PRN 04/27/20 [History] Fluticasone Propion/Salmeterol [Advair 250-50 Diskus] 1 puff INHALATION RT-BID PRN 04/27/20 [History] Furosemide [Lasix] 40 mg PO HS 04/27/20 [History] Nystatin 100,000Unit/gm Cream [Mycostatin Cream] 1 applic TOPICAL BID 04/27/20 [History] Potassium Chloride ER [K-Dur 10] 10 meq PO DAILY 04/27/20 [History] Valsartan 80 mg PO DAILY 04/27/20 [History] metFORMIN HCL [Glucophage] 1,000 mg PO BID 04/27/20 [History] Cyclobenzaprine [Flexeril] 10 mg PO TID PRN 10/06/21 [History] [place] Carbonate ER [Lithobid] 450 mg PO HS 10/06/21 [History] Meloxicam [Mobic] 15 mg PO DAILY 10/06/21 [History] Semaglutide [Rybelsus] 3 mg PO DAILY 10/06/21 [History] lamoTRIgine [lamoTRIgine ER] 50 mg PO HS 10/06/21 [History] lamoTRIgine [lamoTRIgine ER] 100 mg PO HS 10/06/21 [History] Follow up Appointment(s)/Referral(s): Yael Reyes MD [STAFF PHYSICIAN] - 1 Week (Office will call with appointment time and date.) Jacki Freeman DO [Primary Care Provider] - 1-2 days Patient Instructions/Handouts: Chest Pain (DC) Activity/Diet/Wound Care/Special Instructions: Activity: As tolerated. Take breaks as needed. Diet: Heart healthy and carb consistent diet. Avoid salts, or foods with hidden salts such as canned or boxed foods and frozen dinners. Extra salt makes your heart work harder and traps the fluid in your body for longer. Special Instructions: Take all of your medications as directed and remember to keep all of your doctor's appointments and follow-up as needed. Thank you for allowing us to participate in your care, it was truly a pleasure having you for our patient!!! Discharge Disposition: HOME SELF-CARE
[2021-10-09 16:27] LABS: Glucose,Whole Blood 125 mg/dL (70-110)
[2021-10-09 19:48] LABS: Glucose,Whole Blood 140 mg/dL (70-110)
== END 2021-10-09 20:57 | disposition home or self-care (01) ==
LOC: EC 15:58 → 6NMEDSUR 18:46
PROVIDERS: ADMIT Internal Medicine; ATTEND Internal Medicine
DX: R07.89 Other chest pain (principal); E87.2 Acidosis; E11.9 Type 2 diabetes mellitus without complications; E66.01 Morbid (severe) obesity due to excess calories; I10 Essential (primary) hypertension; I25.10 Atherosclerotic heart disease of native coronary artery without angina pectoris; E78.5 Hyperlipidemia, unspecified; J45.909 Unspecified asthma, uncomplicated; K21.9 Gastro-esophageal reflux disease without esophagitis; F41.0 Panic disorder [episodic paroxysmal anxiety]; F32.A Depression, unspecified; E66.9 Obesity, unspecified; I70.0 Atherosclerosis of aorta; I25.2 Old myocardial infarction; G47.33 Obstructive sleep apnea (adult) (pediatric); I08.1 Rheumatic disorders of both mitral and tricuspid valves; K76.0 Fatty (change of) liver, not elsewhere classified; E03.9 Hypothyroidism, unspecified; I37.1 Nonrheumatic pulmonary valve insufficiency; Z91.19 Patient's noncompliance with other medical treatment and regimen; Z79.899 Other long term (current) drug therapy; Z79.890 Hormone replacement therapy; Z79.84 Long term (current) use of oral hypoglycemic drugs; Z82.49 Family history of ischemic heart disease and other diseases of the circulatory system; Z82.3 Family history of stroke; Z84.1 Family history of disorders of kidney and ureter; Z80.0 Family history of malignant neoplasm of digestive organs; Z80.41 Family history of malignant neoplasm of ovary; Z79.82 Long term (current) use of aspirin; Z79.1 Long term (current) use of non-steroidal anti-inflammatories (NSAID); Z20.822 Contact with and (suspected) exposure to COVID-19; Z68.42 Body mass index [BMI] 45.0-49.9, adult
CPT/HCPCS: 96361 ×2; 96372 ×4; 96360; 99285; 36415; 94640 ×6; 94760; 93005; 80053 ×2; 83605; 80178; 83735; 84484 ×2; 85025; 85027; 85610; 85730; 81003; 87040; 87502; 87635; 71046; 76705; G0378 ×4; C8929; Q9950; J1644 ×3; 93306

== ENCOUNTER 2022-09-16 13:32 | Inpatient (IN) | payer MEDICARE, OTHER ==
[2022-09-16] MEDS ORDERED: MORPHINE SULFATE 4 MG/ML SYRINGE IVP STA (14:24)
[2022-09-16 14:26] LABS: Basophils % (A) 1 %; Eosinophils # (A) 0.2 k/uL (0-0.7); Eosinophils % (A) 2 %; HCT 36.8 % (34.0-46.0); Lymphocytes % (A) 24 %; MCH 27.5 pg (25.0-35.0); MCHC 32.6 g/dL (31.0-37.0); MCV 84.3 fL (80.0-100.0); Mean Platelet Volume 8.7; Monocytes # (A) 0.5 k/uL (0-1.0); Monocytes % (A) 6 %; Neutrophils # (A) 5.5 k/uL (1.3-7.7); Neutrophils % (A) 66 %; Platelet Count 278 k/uL (150-450); RBC 4.36 m/uL (3.80-5.40); RDW 13.6 % (11.5-15.5); WBC 8.3 k/uL (3.8-10.6)
[2022-09-16 14:38] LABS: ALT 16 U/L (4-34); AST 21 U/L (14-36); African American GFR (CKD) 73 (>60 ml/min/1.73 sqM); Albumin 3.8 g/dL (3.5-5.0); Alkaline Phosphatase 55 U/L (38-126); Anion Gap 8 mmol/L; Blood Urea Nitrogen 19 mg/dL (7-17); Carbon Dioxide 21 mmol/L (22-30); Chloride 106 mmol/L (98-107); Glucose 108 mg/dL (74-99); Lipase 107 U/L (23-300); Lithium 0.4 mmol/L; Magnesium 1.7 mg/dL (1.6-2.3); Non-African American GFR(CKD) 63 (>60 ml/min/1.73 sqM); Potassium 3.9 mmol/L (3.5-5.1); Sodium 135 mmol/L (137-145); Total Protein 6.5 g/dL (6.3-8.2)
[2022-09-16 14:47] LABS: NT-Pro-B-Type Natriuretic Pept 20 pg/mL
[2022-09-16 14:50] LABS: Partial Thromboplastin Time 20.8 sec (22.0-30.0); Prothrombin Time 10.6 sec (9.0-12.0)
--- NOTE | 2022-09-16 14:56 | XR ---
EXAMINATION TYPE: XR chest 2V DATE OF EXAM: 09/16/2022 2:53 PM COMPARISON: Chest radiographs from 10/06/2021 TECHNIQUE: XR chest 2V Frontal and lateral views of the chest. CLINICAL INDICATION:Female, 67 years old with history of Chest Pain; FINDINGS: Lungs/Pleura: There is no evidence of pleural effusion, focal consolidation, or pneumothorax. Pulmonary vascularity: Unremarkable. Heart/mediastinum: Cardiomediastinal silhouette is prominent in size. Atherosclerotic calcifications are seen in the aorta. Musculoskeletal: Multiple level degenerative disc disease changes seen throughout the spine. IMPRESSION: No acute cardiopulmonary disease/process. No significant change from prior examination.
--- NOTE | 2022-09-16 15:06 | ED ---
Chest Pain HPI - General Chief Complaint: Chest Pain Stated Complaint: chest pain Time Seen by Provider: 09/16/22 13:40 Source: patient, EMS Mode of arrival: EMS Limitations: no limitations - History of Present Illness Initial Comments: 67-year-old female with past medical history of asthma, diabetes, hyperlipidemia who presents to the emergency department reporting chest pain. States it has been waxing and waning for the past 4 days. She was on vacation and called her primary care who recommended that she go to the hospital. States that she did not want to go to an unknown hospital therefore waited until she came home. She has associated nausea and vomiting. States that the pain radiates to her left arm, jaw into her back. Has associated shortness of breath. She does have a history of [place]. Denies fevers chills or cough. Patient arrives by EMS. She was given 4 baby aspirin. No other alleviating, precipitating or modifying factors - Related Data Home Medications Medication Instructions Recorded Confirmed Atorvastatin [Lipitor] 80 mg PO HS 01/22/18 09/16/22 Levothyroxine Sodium 150 mcg PO DAILY 01/22/18 09/16/22 Albuterol Sulfate [Ventolin HFA] 2 puff INHALATION RT-Q4H PRN 10/10/19 09/16/22 Fluticasone Nasal [place] [Flonase 1 spray EA NOSTRIL DAILY PRN 04/27/20 09/16/22 Nasal [place]] Furosemide [Lasix] 40 mg PO DAILY 04/27/20 09/16/22 Nystatin 100,000Unit/gm Cream 1 applic TOPICAL BID 04/27/20 09/16/22 [Mycostatin Cream] Potassium Chloride ER [K-Dur 10] 10 meq PO DAILY 04/27/20 09/16/22 Valsartan 80 mg PO HS 04/27/20 09/16/22 lamoTRIgine [lamoTRIgine ER] 50 mg PO HS 10/06/21 09/16/22 lamoTRIgine [lamoTRIgine ER] 100 mg PO HS 10/06/21 09/16/22 [place] Carbonate [[place] 300 mg PO HS 09/16/22 09/16/22 Carbonate ER] Melatonin 5 mg PO HS 09/16/22 09/16/22 Omeprazole 20 mg PO DAILY 09/16/22 09/16/22 Pantoprazole [Protonix] 40 mg PO DAILY 09/16/22 09/16/22 metFORMIN HCL ER [Glucophage XR] 1,000 mg PO BID 09/16/22 09/16/22 Previous Rx's Medication Instructions Recorded Aspirin 81 mg PO DAILY chew 10/15/19 Allergies Allergy/AdvReac Type Severity Reaction Status Date / Time sulfamethoxazole Allergy Unknown Rash/Hives, Verified 09/16/22 14:51 [From Bactrim] SOB trimethoprim [From Bactrim] Allergy Unknown Rash/Hives, Verified 09/16/22 14:51 SOB Review of Systems ROS Statement: Those systems with pertinent positive or pertinent negative responses have been documented in the HPI. ROS Other: All systems not noted in ROS Statement are negative. 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 Past Anesthesia/Blood Transfusion Reactions: Family History of Problems w/ Anesthesia, Motion Sickness Additional Past Anesthesia/Blood Transfusion Reaction / Comment(s): clausterphobia. pt's sister had diff breathing from anesthesia Past Psychological History: Anxiety, Depression, Panic Disorder Smoking Status: Never smoker Past Alcohol Use History: None Reported Past Drug Use History: None Reported - Past Family History Son(s) Additional Family Medical History / Comment(s): She has 2 sons with no major medical problems. Patient does not have any daughters. Mother Additional Family Medical History / Comment(s): Mother at age 80 from renal failure. Father Additional Family Medical History / Comment(s): Father at age 67 with history of AZ and stroke Brother(s) Family Medical History: Cancer Additional Family Medical History / Comment(s): She has total of 5 brothers and all had history of coronary artery disease and CABG, hypertension, hyperlipidemia, diabetes. Sister(s) Family Medical History: Cancer Additional Family Medical History / Comment(s): one sister of colon cancer, second sister had ovarian cancer General Exam Limitations: no limitations General appearance: alert, in no apparent distress Head exam: Present: atraumatic, normocephalic, normal inspection Eye exam: Present: normal appearance, PERRL, EOMI. Absent: scleral icterus, conjunctival injection, periorbital swelling ENT exam: Present: normal exam, mucous membranes moist Neck exam: Present: normal inspection. Absent: tenderness, meningismus, lymphadenopathy Respiratory exam: Present: normal lung sounds bilaterally. Absent: respiratory distress, wheezes, rales, rhonchi, stridor Cardiovascular Exam: Present: regular rate, normal rhythm, normal heart sounds. Absent: systolic murmur, diastolic murmur, rubs, gallop, clicks GI/Abdominal exam: Present: soft, normal bowel sounds. Absent: distended, tend erness, guarding, rebound, rigid Extremities exam: Present: normal inspection, full ROM, normal capillary refill. Absent: tenderness, pedal edema, joint swelling, calf tenderness Back exam: Present: normal inspection Neurological exam: Present: alert, oriented X3, CN II-XII intact Psychiatric exam: Present: normal affect, normal mood Skin exam: Present: warm, dry, intact, normal color. Absent: rash Course Vital Signs 09/16/22 09/16/22 09/16/22 13:36 15:02 19:00 Temperature 98.5 F 98.5 F Pulse Rate 62 62 66 Respiratory 18 20 20 Rate Blood Pressure 133/73 123/95 117/63 O2 Sat by Pulse 97 92 L 97 Oximetry Chest Pain MDM - MDM Was pt. sent in by a medical professional or institution (, PA, SOFT WATER MECHANIC, urgent care, hospital, or halfway...) When possible be specific @ -No Did you speak to anyone other than the patient for history (EMS, parent, family, police, friend...)? What history was obtained from this source @ -EMS Did you review nursing and triage notes (agree or disagree)? Why? @ -I reviewed and agree with nursing and triage notes Were old charts reviewed (outside hosp., previous admission, EMS record, old EKG, old radiological studies, urgent care reports/EKG's, halfway records)? Report findings @ -I reviewed old charts on the patient. She was hospitalized in September of last year for chest pain and had a cardiac workup Differential Diagnosis (chest pain, altered mental status, abdominal pain women, abdominal pain men, vaginal bleeding, weakness, fever, dyspnea, syncope, headache, dizziness, GI bleed, back pain, seizure, CVA, palpatations, mental health, musculoskeletal)? @ -Differential Chest Pain: Stable Angina, Unstable Angina, STEMI, NSTEMI Aortic Dissection, Pneumothorax, Musculoskeletal, Esophageal Spasm GERD, Cholecystitis, Pancreatitis, Zoster, this is not meant to be an all-inclusive list. EKG interpreted by me (3pts min.). @ -yes and demonstrates sinus bradycardia with a rate of 58. CO interval 162. QRS 88. QTC of 425. No acute ST segment elevations or depressions X-rays interpreted by me (1pt min.). @ -Yes and demonstrates no acute process CT interpreted by me (1pt min.). @ -None done U/S interpreted by me (1pt. min.). @ -None done What testing was considered but not performed or refused? (CT, X-rays, U/S, labs)? Why? @ -None What meds were considered but not given or refused? Why? @ -None Did you discuss the management of the patient with other professionals (professionals i.e. , PA, SOFT WATER MECHANIC, lab, RT, psych nurse, social organization professor, entry specialists, teacher, security patrol officer, case packer and sealer)? Give summary @ -I spoke with Dr. hernandez who accepted admission Was smoking cessation discussed for >3mins.? @ -No Was critical care preformed (if so, how long)? @ -No Were there social determinants of health that impacted care today? How? (Homelessness, low income, unemployed, alcoholism, drug addiction, transportation, low edu. Level, literacy, decrease access to med. care, [facility], rehab)? @ -No Was there de-escalation of care discussed even if they declined (Discuss DNR or withdrawal of care, Hospice)? DNR status @ -No What co-morbidities impacted this encounter? (DM, HTN, Smoking, COPD, CAD, Cancer, CVA, ARF, Chemo, Hep., AIDS, mental health diagnosis, sleep apnea, morbid obesity)? @ -Hypertension, morbid obesity, AZ Was patient admitted / discharged? Hospital course, mention meds given and route, prescriptions, significant lab abnormalities, going to OR and other pertinent info. @ -On arrival patient was placed into room 7. A thorough history and physical exam was performed. Patient placed on continuous pulse ox and cardiac monitoring. Does have active chest pain and therefore was given 4 mg of morphine. Laboratory studies are conducted and chest x-ray was performed. Discuss results with the patient. She continues to have active chest pain therefore I recommended admission. Spoke with Dr. hernandez who is agreeable to admit the patient. Patient is taking to the floor in stable condition Undiagnosed new problem with uncertain prognosis? @ -Yes Drug Therapy requiring intensive monitoring for toxicity (Heparin, Nitro, Insulin, Cardizem)? @ -No Were any procedures done? @ -No Diagnosis/symptom? @ -Chest pain, possible ACS, nausea and vomiting Acute, or Chronic, or Acute on Chronic? @ -Acute Uncomplicated (without systemic symptoms) or Complicated (systemic symptoms)? @ -Complicated Side effects of treatment? @ -No Exacerbation, Progression, or Severe Exacerbation? @ -No Poses a threat to life or bodily function? How? (Chest pain, [place], [place], pneumonia, PE, COPD, DKA, ARF, appy, cholecystitis, CVA, Diverticulitis, Homicidal, Suicidal, threat to staff... and all critical care pts) @ -Yes patient has active chest pain which may represent acute coronary syndrome Disposition Clinical Impression: Chest pain Disposition: ADMITTED IP TO THIS HOSP Condition: Stable Is patient prescribed a controlled substance at d/c from ED?: No Time of Disposition: 16:13 Decision to Admit Reason: Admit from EC Decision Date: 09/16/22 Decision Time: 16:13
[2022-09-16 15:17] LABS: Appearance,Urine Clear (Clear); Bilirubin,Urine Negative (Negative); Blood,Urine Negative (Negative); Color,Urine Light Yellow; Glucose,Urine (UA) Negative (Negative); Ketones,Urine 1+ (Negative); Leukocyte Esterase,Urine Negative (Negative); Nitrite,Urine Negative (Negative); PH, Urine 5.5 (5.0-8.0); Protein,Urine Negative (Negative); Specific Gravity,Urine 1.013 (1.001-1.035); Urobilinogen,Urine <2.0 mg/dL (<2.0)
[2022-09-16] MEDS ORDERED: SODIUM CHLORIDE 0.9% 1,000 ML IV ONE (15:37)
[2022-09-16] MEDS ORDERED: NALOXONE 0.4 MG/ML 1 ML VIAL IV PRN (16:14)
[2022-09-16] MEDS: SODIUM CHLORIDE 0.9% 1,000 ML IV SCH (21:14)
[2022-09-16] MEDS ORDERED: FLUTICASONE 50MCG/SPRAY NASAL 16GM EA NOSTRIL PRN (21:25)
[2022-09-16] MEDS ORDERED: ALBUTEROL NEBULIZED 2.5 MG/3 ML INHALATION PRN (21:25)
[2022-09-16] MEDS ORDERED: Acetaminophen-Codeine 300-30mg TAB PO STA (21:37)
[2022-09-16] MEDS ORDERED: diphenhydrAMINE 25 MG CAP PO STA (21:37)
[2022-09-16] MEDS: MELATONIN 5 MG TABLET PO SCH (22:12)
[2022-09-16] MEDS: lamoTRIgine 25 MG TAB PO SCH ×2 (22:12→22:13)
[2022-09-16] MEDS: LITHIUM CARBONATE 300 MG CAP PO SCH (22:13)
[2022-09-17] MEDS: LEVOTHYROXINE 75 MCG TAB PO SCH (05:11)
[2022-09-17] MEDS: SODIUM CHLORIDE 0.9% 1,000 ML IV SCH ×2 (05:11→17:09)
[2022-09-17] MEDS: PANTOPRAZOLE 40 MG TABLET PO SCH (05:11)
[2022-09-17 06:24] LABS: Glucose,Whole Blood 81 mg/dL (70-110)
[2022-09-17] MEDS ORDERED: DOBUTamine DRIP for NUC MED 500 MG in DEXTROSE/WATER 1 250ML.BAG IV PRN (08:30)
[2022-09-17] MEDS ORDERED: POTASSIUM CHLORIDE ER 10 MEQ TAB.ER.PRT PO SCH (09:00)
[2022-09-17] MEDS: FUROSEMIDE 40 MG TAB PO SCH (09:02)
[2022-09-17] MEDS: ASPIRIN 81 MG PO SCH (09:02)
[2022-09-17] MEDS: lamoTRIgine 25 MG TAB PO SCH ×2 (09:03→09:04)
--- NOTE | 2022-09-17 10:30 | P.CRDCN ---
History of Present Illness Consult date: 09/17/22 Consult reason: chest pain History of present illness: HISTORY OF PRESENT ILLNESS: This is a 64-year-old female with a past medical history significant for hypertension, hyperlipidemia, diabetes mellitus, sleep apnea, hypothyroidism, GERD, and morbid obesity. Patient follows in the office with Dr. Reyes. We have been asked to see the patient in consultation for chest pain. Patient complains of chest pain in the midsternal area that is going on for a couple of days. It starts in the middle of her sternum and then goes into her abdomen. She also complains of left arm jaw and shoulder pain. Pain lasts for a few minutes and goes away on its own. Activity does not change or chest pain. She also has other symptoms with shortness of breath, dizziness, lower extremity edema and palpitations. No fever. She also has nausea and vomited a few days ago. She states she has some right red rectal bleeding from hemorrhoids. No history of stroke or seizure. She is a nonsmoker. EKG reveals sinus rhythm without signs of acute ischemia. Chest xray negative for acute process. CBC normal. INR 1. D-dimer 0.29. Sodium 135, potassium 3.9, chloride 106, CO2 21, BUN 19 and creatinine 0.95. Blood sugar 108. Magnesium 1.7. Liver funct ion tests are normal. Troponin negative 3. TSH 1.130. Urinalysis negative for infection. Hughson level 0.4. Current home cardiac medications include aspirin 81 mg daily, valsartan 80 mg daily, atorvastatin 80 mg daily, Lasix 40 mg daily Echocardiogram 09/2021 revealed technically difficult study, normal left ventricular dimension and systolic function, mild mitral regurgitation. Cardiac catheterization history: September [address] Amaya revealing normal coronary arteries with mild calcification in proximal LAD REVIEW OF SYSTEMS: At the time of my exam: CONSTITUTIONAL: Denies fever or chills. HEENT: Denies blurred vision, vision changes, or eye pain. Denies hemoptysis CARDIOVASCULAR: Denies chest pain. Denies orthopnea. Denies PND. Denies palpitations RESPIRATORY: Denies shortness of breath. GASTROINTESTINAL: Denies abdominal pain. Denies nausea or vomiting. HEMATOLOGIC: Denies bleeding disorders. GENITOURINARY: Denies any blood in urine. SKIN: Denies pruitis. Denies rash. PHYSICAL EXAM: VITAL SIGNS: Reviewed. GENERAL: Well-developed in no acute distress. HEENT: Head is normocephalic. Pupils are equal, round. Sclerae anicteric. Mucous membranes of the mouth are moist. Neck supple. No JVD or thyromegaly LUNGS: Respirations even and unlabored. Lungs essentially clear to auscultation bilaterally. HEART: Regular rate and rhythm. S1 and S2 heard. Soft systolic murmur ABDOMEN: Soft. Nondistended. Nontender. EXTREMITIES: Decreased range of motion of left upper extremity. No clubbing or cyanosis. Peripheral pulses intact. No lower extremity edema NEUROLOGIC: Awake and alert. Oriented x 3. ASSESSMENT: Chest pain, atypical, acute coronary syndrome ruled out Hypertension Hyperlipidemia Diabetes mellitus Sleep apnea not using CPAP machine GERD Hypothyroidism Morbid obesity: BMI 65.5 PLAN: Resume home cardiac medications Obtain 2-D echo to assess cardiac structure and function Obtain dobutamine stress echo today If stress test and echocardiogram are unremarkable, patient is cleared for discharge from cardiology. Follow-up in the office with Dr. ANTONIO Reyes in one week. Further recommendations pending patient's course Nurse practitioner note has been reviewed by physician. Signing provider agrees with the documented findings, assessment, and plan of care. 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 Past Anesthesia/Blood Transfusion Reactions: Family History of Problems w/ Anesthesia, Motion Sickness Additional Past Anesthesia/Blood Transfusion Reaction / Comment(s): clausterphobia. pt's sister had diff breathing from anesthesia Past Psychological History: Anxiety, Depression, Panic Disorder Smoking Status: Never smoker Past Alcohol Use History: None Reported Past Drug Use History: None Reported - Past Family History Son(s) Additional Family Medical History / Comment(s): She has 2 sons with no major medical problems. Patient does not have any daughters. Mother Additional Family Medical History / Comment(s): Mother at age 80 from renal failure. Father Additional Family Medical History / Comment(s): Father at age 67 with history of [place] and stroke Brother(s) Family Medical History: Cancer Additional Family Medical History / Comment(s): She has total of 5 brothers and all had history of coronary artery disease and CABG, hypertension, hyperlipidemia, diabetes. Sister(s) Family Medical History: Cancer Additional Family Medical History / Comment(s): one sister of colon cancer, second sister had ovarian cancer Medications and Allergies Home Medications Medication Instructions Recorded Confirmed Type Atorvastatin [Lipitor] 80 mg PO HS 01/22/18 09/16/22 History Levothyroxine Sodium 150 mcg PO DAILY 01/22/18 09/16/22 History Albuterol Sulfate [Ventolin HFA] 2 puff INHALATION RT-Q4H PRN 10/10/19 09/16/22 History Aspirin 81 mg PO DAILY chew 10/15/19 09/16/22 Rx Fluticasone Nasal [place] [Flonase 1 spray EA NOSTRIL DAILY PRN 04/27/20 09/16/22 History Nasal [place]] Furosemide [Lasix] 40 mg PO DAILY 04/27/20 09/16/22 History Nystatin 100,000Unit/gm Cream 1 applic TOPICAL BID 04/27/20 09/16/22 History [Mycostatin Cream] Potassium Chloride ER [K-Dur 10] 10 meq PO DAILY 04/27/20 09/16/22 History Valsartan 80 mg PO HS 04/27/20 09/16/22 History lamoTRIgine [lamoTRIgine ER] 50 mg PO HS 10/06/21 09/16/22 History lamoTRIgine [lamoTRIgine ER] 100 mg PO HS 10/06/21 09/16/22 History Hugh[place] Carbonate [[place] 300 mg PO HS 09/16/22 09/16/22 History Carbonate ER] Melatonin 5 mg PO HS 09/16/22 09/16/22 History Omeprazole 20 mg PO DAILY 09/16/22 09/16/22 History Pantoprazole [Protonix] 40 mg PO DAILY 09/16/22 09/16/22 History metFORMIN HCL ER [Glucophage XR] 1,000 mg PO BID 09/16/22 09/16/22 History Allergies Allergy/AdvReac Type Severity Reaction Status Date / Time sulfamethoxazole Allergy Unknown Rash/Hives, Verified 09/16/22 14:51 [From Bactrim] SOB trimethoprim [From Bactrim] Allergy Unknown Rash/Hives, Verified 09/16/22 14:51 SOB Physical Exam Vitals: Vital Signs Temp Pulse Pulse Resp BP BP Pulse Ox 09/17/22 02:07 98.0 F 56 L 16 109/63 97 09/16/22 20:26 98.4 F 59 L 17 118/76 94 L 09/16/22 19:00 66 20 117/63 97 09/16/22 15:02 98.5 F 62 20 123/95 92 L 09/16/22 13:36 98.5 F 62 18 133/73 97 Intake and Output 09/16/22 09/17/22 09/17/22 22:59 06:59 14:59 Output Total 275 Balance -275 Output: Urine 275 Other: Voiding Method External Catheter # Voids 0 Weight 140.614 kg Results 09/16/22 14:07 09/16/22 14:07 Cardiac Enzymes 09/16/22 09/16/22 09/16/22 Range/Units 14:07 14:07 19:35 AST 21 (14-36) U/L Troponin I <0.012 <0.012 (0.000-0.034) ng/mL 09/16/22 Range/Units 23:45 AST (14-36) U/L Troponin I <0.012 (0.000-0.034) ng/mL Coagulation 09/16/22 Range/Units 14:07 PT 10.6 (9.0-12.0) sec APTT 20.8 L (22.0-30.0) sec CBC 09/16/22 Range/Units 14:07 WBC 8.3 (3.8-10.6) k/uL RBC 4.36 (3.80-5.40) m/uL Hgb 12.0 (11.4-16.0) gm/dL Hct 36.8 (34.0-46.0) % Plt Count 278 (150-450) k/uL Comprehensive Metabolic Panel 09/16/22 Range/Units 14:07 Sodium 135 L (137-145) mmol/L Potassium 3.9 (3.5-5.1) mmol/L Chloride 106 (98-107) mmol/L Carbon Dioxide 21 L (22-30) mmol/L BUN 19 H (7-17) mg/dL Creatinine 0.95 (0.52-1.04) mg/dL Glucose 108 H (74-99) mg/dL Calcium 9.0 (8.4-10.2) mg/dL AST 21 (14-36) U/L ALT 16 (4-34) U/L Alkaline Phosphatase 55 (38-126) U/L Total Protein 6.5 (6.3-8.2) g/dL Albumin 3.8 (3.5-5.0) g/dL Current Medications Generic Name Dose Route Start Last Admin Trade Name Freq PRN Reason Stop Dose Admin Albuterol Sulfate 2.5 mg 09/16/22 21:25 Albuterol Nebulized 2.5 Mg/3 Ml INHALATION RT-Q4H PRN Shortness Of Breath Aspirin 81 mg 09/17/22 09:00 Aspirin 81 Mg PO DAILY RIKY Atorvastatin Calcium 80 mg 09/17/22 21:00 Atorvastatin 80 Mg Tab PO HS RIKY Fluticasone Propionate 1 spray 09/16/22 21:25 Fluticasone 50mcg/[place] Nasal 16gm EA NOSTRIL DAILY PRN Allergy Symptoms Furosemide 40 mg 09/17/22 09:00 Furosemide 40 Mg Tab PO DAILY RIKY Sodium Chloride 1,000 mls @ 75 mls/hr 09/16/22 16:15 09/17/22 05:11 Saline 0.9% IV Not Given .[id number] RIKY Lamotrigine 25 mg 09/16/22 21:30 09/16/22 22:12 Lamotrigine 25 Mg Tab PO 25 mg BID RIKY Administration Lamotrigine 50 mg 09/16/22 21:30 09/16/22 22:13 Lamotrigine 25 Mg Tab PO 50 mg BID RIKY Administration Levothyroxine Sodium 150 mcg 09/17/22 06:30 09/17/22 05:11 Levothyroxine 75 Mcg Tab PO 150 mcg DAILY@0630 RIKY Administration [place] Carbonate 300 mg 09/16/22 21:30 09/16/22 22:13 [place] Carbonate 300 Mg Cap PO 300 mg HS RIKY Administration Melatonin 5 mg 09/16/22 21:30 09/16/22 22:12 Melatonin 5 Mg Tablet PO 5 mg HS RIKY Administration Metformin HCl 1,000 mg 09/17/22 09:00 Metformin 500 Mg Tab PO BID RIKY Naloxone HCl 0.2 mg 09/16/22 16:14 Naloxone 0.4 Mg/Ml 1 Ml Vial IV Q2M PRN Opioid Reversal Pantoprazole Sodium 40 mg 09/17/22 07:30 09/17/22 05:11 Pantoprazole 40 Mg Tablet PO 40 mg [id number] RIKY Administration Valsartan 80 mg 09/17/22 21:00 Valsartan 80 Mg Tab PO HS RIKY Intake and Output 09/16/22 09/17/22 09/17/22 22:59 06:59 14:59 Output Total 275 Balance -275 Output: Urine 275 Other: Voiding Method External Catheter # Voids 0 Weight 140.614 kg 09/16/22 14:07 09/16/22 14:07
[2022-09-17 11:09] LABS: Basophils # (A) 0.07 X 10*3/uL (0.00-0.10); Basophils % (A) 0.9 %; Eosinophils # (A) 0.16 X 10*3/uL (0.04-0.35); Eosinophils % (A) 2.1 %; HCT 36.9 % (37.2-46.3); HGB 11.1 d/dL (12.0-15.0); Lymphocytes # (A) 2.65 X 10*3/uL (0.90-5.00); MCHC 30.1 d/dL (32.0-37.0); MCV 86.4 FL (80.0-97.0); Mean Platelet Volume 11.9 FL (9.5-12.2); Monocytes # (A) 0.71 X 10*3/uL (0.20-1.00); Monocytes % (A) 9.1 %; NRBC Per 100 WBC 0 X 10*3/uL (0.00-0.01); Neutrophils # (A) 4.18 X 10*3/uL (1.80-7.70); Neutrophils % (A) 53.6 %; Platelet Count 292 X 10*3/uL (140-440); RBC 4.27 X 10*6/uL (4.10-5.20); RDW 13.9 % (11.5-14.5); WBC 7.79 X 10*3/uL (4.50-10.00)
[2022-09-17 11:19] LABS: Blood Urea Nitrogen 17.1 mg/dL (9.0-27.0); Calcium 8.6 mg/dL (8.7-10.3); Chloride 108 mmol/L (96-109); Glucose 88 mg/dL (70-110); Sodium 141 mmol/L (135-145)
--- NOTE | 2022-09-17 11:21 | CA ---
Transthoracic Echo Report Name: Belinda Welch Age: 67 Gender: F : 1955 Exam Date: 09/17/2022 10:19 Exam Location: [facility] Ht (in): 60 Wt (lb): 310 Ordering Physician: Rakel Babcock Attending/Referring Phys: [id number], Sadiq Planning Manager Hedy Calloway [facility] Procedure CPT: Indications: LVF Cardiac Hx: Technical Quality: Fair Contrast 1: Total Dose (mL): Contrast 2: Total Dose (mL): MEASUREMENTS (Male / Female) Normal Values 2D ECHO LV Diastolic Diameter PLAX 5.0 cm 4.2 - 5.9 / 3.9 - 5.3 cm LV Systolic Diameter PLAX 3.7 cm IVS Diastolic Thickness 1.0 cm 0.6 - 1.0 / 0.6 - 0.9 cm LVPW Diastolic Thickness 1.1 cm 0.6 - 1.0 / 0.6 - 0.9 cm LV Relative Wall Thickness 0.4 LVOT Diameter 2.0 cm M-MODE Aortic Root Diameter MM 2.7 cm LA Systolic Diameter MM 3.8 cm LA Ao Ratio MM 1.4 AV Cusp Separation MM 2.1 cm DOPPLER AV Peak Velocity 129.2 cm/s AV Peak Gradient 6.7 mmHg AV Mean Velocity 97.8 cm/s AV Mean Gradient 4.1 mmHg AV Velocity Time Integral 30.8 cm LVOT Peak Velocity 128.8 cm/s LVOT Peak Gradient 6.6 mmHg LVOT Velocity Time Integral 31.6 cm LVOT Stroke Volume 99.8 cm??? LVOT Stroke Volume Index 44.4 ml/m??? LVOT Cardiac Index 2040.4 cm???/min???m??? AV Area Cont Eq vti 3.2 cm??? AV Area Cont Eq pk 3.2 cm??? Mitral E Point Velocity 69.0 cm/s Mitral A Point Velocity 55.5 cm/s Mitral E to A Ratio 1.2 MV Deceleration Time 166.3 ms LV E' Lateral Velocity 11.6 cm/s Mitral E to LV E' Lateral Ratio 6.0 LV E' Septal Velocity 7.4 cm/s Mitral E to LV E' Septal Ratio 9.4 TR Peak Velocity 239.4 cm/s TR Peak Gradient 22.9 mmHg Right Atrial Pressure 3.0 mmHg Pulmonary Artery Systolic Pressu 25.9 mmHg Right Ventricular Systolic Press 25.9 mmHg FINDINGS Left Ventricle Left ventricular wall thickness normal. Left ventricular cavity size at the upper limits of normal. Left ventricular ejection fraction is estimated at 55- 60 %.normal left ventricular wall motion. Right Ventricle Mild right ventricular dilatation. Right Atrium Mild right atrial dilatation. Possible PFO cannot be excluded Left Atrium Moderate left atrial dilatation. Mitral Valve Structurally normal mitral valve. Mild mitral regurgitation. Aortic Valve Aortic valve not well visualized. No aortic valve stenosis or regurgitation. Tricuspid Valve Structurally normal tricuspid valve. Trace tricuspid regurgitation. Pulmonic Valve Pulmonic valve not well visualized. Pericardium No pericardial effusion. Echo free space anterior to the right ventricle likely represents a fat pad. Aorta Normal size aortic root. CONCLUSIONS 1. Normal left ventricular size and systolic function 2. Mild mitral with trace tricuspid regurgitation 3. Cannot exclude a PFO with [id number] shunting Previewed by: Dr. Ela Amaya MD (Electronically Signed) Final Date: 17 September 2022 11:21
[2022-09-17] MEDS ORDERED: DOBUTamine DRIP for NUC MED 500 MG/250 ML BAG IV ONE (12:30)
[2022-09-17 13:20] LABS: Glucose,Whole Blood 132 mg/dL (70-110)
[2022-09-17] MEDS: metFORMIN 500 MG TAB PO SCH ×2 (13:20→21:23)
--- NOTE | 2022-09-17 13:41 | CA ---
Dobutamine Stress Echocardiogram Report Belinda Welch Age: 67 Gender: F : 1955 Exam Date: 09/17/2022 12:11 Exam Location: [facility] Ordering Physician: Rakel Babcock Referring Physician: Sadiq Ellington;[id number] Laundry Superintendent: Cami Herrera RDCS Technologist: Ht (in): 60 Wt (lb): 310 Procedure CPT: Indication: CP ICD-9 Codes: Rhythm: Patient History: Chest pain Cardiac Medications: Medications in past 24 hours: Contrast: Lumason Total Dose (mL): Stress Results Protocol: Dobutamine Peak Dose (???g/kg/min): 40 Duration (min:sec): Atropine:(mg) Target HR: 132 Double Product: [id number] Resting HR: 59 Resting BP: 107 / 66 Peak HR: 133 Peak BP: 103 / 53 Max Predicted HR: 155 86 % Max Predicted HR Stress Summary: BP Response: Reason for Termination: Exceeded target heart rate (85% max predicted) Cardiac Symptoms: Fatigue ECG Analysis Resting EKG: Normal sinus rhythm, Resting ST/T wave changes Stress EKG: Exaggeration of the baseline ST abnormality Arrhythmia: None Echo Analysis Base Echo Analysis: Normal resting echocardiogram. Low Echo Anaylsis: No evidence of segmental wall motion Peak Echo Analysis: Normal wall thickening and motion is no hypokinesis Recovery Echo: Normal left ventricular systolic function MEASUREMENTS (Male/Female) Normal Values CONCLUSIONS Normal electrocardiographic response to exercise No echocardiographic evidence of myocardial ischemia. Normal response to Dobutamine. Dr. Ela Amaya MD (Electronically Signed) Final Date: 17 September 2022 13:40
--- NOTE | 2022-09-17 14:51 | P.HPIM ---
History of Present Illness H&P Date: 09/17/22 This is a 67 year old female with medical history of asthma, sleep apnea with CPAP use, hyperlipidemia, hypertension, diabetes mellitus, thyroid disorder anxiety depression. Patient came in for complaints of week long history of weakness and fatigue as well as chest pain in the mid sternum radiating to the left arm and jaw which has been ongoing for the last few days. Patient waited it out at home and pain was not improving, also reports associated dizziness, lightheadedness and diaphoresis. Patient denies any fever or chills, no cough. Does have a history of cardiac catheterization with no prior stenting reported. Has strong family history of coronary artery disease, all 5 of her brothers have underwent coronary bypass. Work up reveals normal hemoglobin 12.0, white count normal. D-Dimer is normal at 0.29, normal kidney function, troponin level negative x 3 and proBNP level of 20. Urinalysis is negative. TSH is normal at 1.130. Patient will be admitted in observation and cardiology has been consulted. REVIEW OF SYSTEMS: CONSTITUTIONAL: No fever, no malaise. Reports fatigue. HEENT: No recent visual problems or hearing problems. Denied any sore throat. CARDIOVASCULAR: Reports chest pain, left arm/jaw pain, orthopnea, PND, no palpitations, no syncope. PULMONARY: No shortness of breath, no cough, no hemoptysis. GASTROINTESTINAL: No diarrhea, no nausea, no vomiting, no abdominal pain. NEUROLOGICAL: No headaches, no weakness, no numbness. HEMATOLOGICAL: Denies any bleeding or petechiae. GENITOURINARY: Denies any burning micturition, frequency, or urgency. MUSCULOSKELETAL/RHEUMATOLOGICAL: Denies any joint pain, swelling, or any muscle pain. ENDOCRINE: Denies any polyuria or polydipsia. The rest of the 14-point review of systems is negative. PHYSICAL EXAMINATION: GENERAL: The patient is alert and oriented x3, not in any acute distress. Well developed, well nourished. HEENT: Pupils are round and equally reacting to light. EOMI. No scleral icterus. No conjunctival pallor. Normocephalic, atraumatic. No pharyngeal erythema. No thyromegaly. CARDIOVASCULAR: S1 and S2 present. No murmurs, rubs, or gallops. PULMONARY: Chest is clear to auscultation, no wheezing or crackles. ABDOMEN: Soft, nontender, nondistended, normoactive bowel sounds. No palpable organomegaly. MUSCULOSKELETAL: No joint swelling or deformity. EXTREMITIES: No cyanosis, clubbing, or pedal edema. NEUROLOGICAL: Gross neurological examination did not reveal any focal deficits. SKIN: No rashes. Assessment Chest pain and fatigue rule out acute coronary syndrome Sinus bradycardia Thyroid disorder Hx hypertension Hx hyperlipidemia Diabetes Mellitus type 2 Sleep apnea with CPAP use Anxiety/Depression Morbid Obesity with BMI 60.5. GI prophylaxis DVT prophylaxis Full Code Plan Cardiology consultation in place Patient to undergo lexiscan stress test today If lexiscan stress test is negative ABGs will be ordered. Follow up labs in AM Continue cardiac monitoring of heart rate. The impression and plan of care has been dictated by Ashley Kendrick Nurse Practitioner as directed. Dr. Fatmata MD I have performed a history and physical examination and medical decision making of this patient, discussed the same with the dictator, and agree with the dictators assessment and plan as written, documented as a scribe. Based on total visit time, I have performed more than 50% of this visit. 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 Past Anesthesia/Blood Transfusion Reactions: Family History of Problems w/ Anesthesia, Motion Sickness Additional Past Anesthesia/Blood Transfusion Reaction / Comment(s): clausterphobia. pt's sister had diff breathing from anesthesia Past Psychological History: Anxiety, Depression, Panic Disorder Smoking Status: Never smoker Past Alcohol Use History: None Reported Past Drug Use History: None Reported - Past Family History Son(s) Additional Family Medical History / Comment(s): She has 2 sons with no major m edical problems. Patient does not have any daughters. Mother Additional Family Medical History / Comment(s): Mother at age 80 from renal failure. Father Additional Family Medical History / Comment(s): Father at age 67 with hist ory of [place] and stroke Brother(s) Family Medical History: Cancer Additional Family Medical History / Comment(s): She has total of 5 brothers and all had history of coronary artery disease and CABG, hypertension, hyperlipidemia, diabetes. Sister(s) Family Medical History: Cancer Additional Family Medical History / Comment(s): one sister of colon cancer, second sister had ovarian cancer Medications and Allergies Home Medications Medication Instructions Recorded Confirmed Type Atorvastatin [Lipitor] 80 mg PO HS 01/22/18 09/16/22 History Levothyroxine Sodium 150 mcg PO DAILY 01/22/18 09/16/22 History Albuterol Sulfate [Ventolin HFA] 2 puff INHALATION RT-Q4H PRN 10/10/19 09/16/22 History Aspirin 81 mg PO DAILY chew 10/15/19 09/16/22 Rx Fluticasone Nasal [place] [Flonase 1 spray EA NOSTRIL DAILY PRN 04/27/20 09/16/22 History Nasal [place]] Furosemide [Lasix] 40 mg PO DAILY 04/27/20 09/16/22 History Nystatin 100,000Unit/gm Cream 1 applic TOPICAL BID 04/27/20 09/16/22 History [Mycostatin Cream] Potassium Chloride ER [K-Dur 10] 10 meq PO DAILY 04/27/20 09/16/22 History Valsartan 80 mg PO HS 04/27/20 09/16/22 History lamoTRIgine [lamoTRIgine ER] 50 mg PO HS 10/06/21 09/16/22 History lamoTRIgine [lamoTRIgine ER] 100 mg PO HS 10/06/21 09/16/22 History [place] Carbonate [[place]od[place] 300 mg PO HS 09/16/22 09/16/22 History Carbonate ER] Melatonin 5 mg PO HS 09/16/22 09/16/22 History Omeprazole 20 mg PO DAILY 09/16/22 09/16/22 History Pantoprazole [Protonix] 40 mg PO DAILY 09/16/22 09/16/22 History metFORMIN HCL ER [Glucophage XR] 1,000 mg PO BID 09/16/22 09/16/22 History Allergies Allergy/AdvReac Type Severity Reaction Status Date / Time sulfamethoxazole Allergy Unknown Rash/Hives, Verified 09/16/22 14:51 [From Bactrim] SOB trimethoprim [From Bactrim] Allergy Unknown Rash/Hives, Verified 09/16/22 14:51 SOB Physical Exam Vitals: Vital Signs Temp Pulse Pulse Resp BP BP Pulse Ox 09/17/22 02:07 98.0 F 56 L 16 109/63 97 09/16/22 20:26 98.4 F 59 L 17 118/76 94 L 09/16/22 19:00 66 20 117/63 97 09/16/22 15:02 98.5 F 62 20 123/95 92 L 09/16/22 13:36 98.5 F 62 18 133/73 97 Intake and Output 09/16/22 09/17/22 09/17/22 22:59 06:59 14:59 Output Total 275 Balance -275 Output: Urine 275 Other: Voiding Method External Catheter # Voids 0 Weight 140.614 kg Results CBC & Chem 7: 09/17/22 05:40 09/17/22 05:40 Labs: Abnormal Lab Results - Last 24 Hours (Table) 09/16/22 09/16/22 09/16/22 Range/Units 14:07 14:07 15:09 APTT 20.8 L (22.0-30.0) sec Sodium 135 L (137-145) mmol/L Carbon Dioxide 21 L (22-30) mmol/L BUN 19 H (7-17) mg/dL Glucose 108 H (74-99) mg/dL Urine Ketones 1+ H (Negative) Assessment and Plan Time with Patient: Less than 30
[2022-09-17] MEDS: NYSTATIN 100,000 UNIT/GM POWD 15 GM TOPICAL SCH ×2 (16:46→21:24)
[2022-09-17] MEDS ORDERED: ALPRAZolam 0.25 MG TAB PO STA (16:53)
[2022-09-17] MEDS ORDERED: VALSARTAN 80 MG TAB PO SCH (21:00)
[2022-09-17] MEDS: LITHIUM CARBONATE 300 MG CAP PO SCH (21:24)
[2022-09-17] MEDS: ATORVASTATIN 80 MG TAB PO SCH (21:24)
[2022-09-17] MEDS: MELATONIN 5 MG TABLET PO SCH (21:24)
[2022-09-17] MEDS: lamoTRIgine 100 MG TAB PO SCH (21:31)
[2022-09-18] MEDS: PANTOPRAZOLE 40 MG TABLET PO SCH (05:41)
[2022-09-18] MEDS: LEVOTHYROXINE 75 MCG TAB PO SCH (05:41)
[2022-09-18] MEDS: FUROSEMIDE 40 MG TAB PO SCH (09:00)
[2022-09-18] MEDS: SODIUM CHLORIDE 0.9% 1,000 ML IV SCH (09:30)
[2022-09-18] MEDS: metFORMIN 500 MG TAB PO SCH ×2 (09:30→20:17)
[2022-09-18] MEDS: ASPIRIN 81 MG PO SCH (09:30)
[2022-09-18] MEDS: NYSTATIN 100,000 UNIT/GM POWD 15 GM TOPICAL SCH ×3 (09:31→20:18)
--- NOTE | 2022-09-18 10:16 | P.PN ---
Subjective Progress Note Date: 09/18/22 HISTORY OF PRESENT ILLNESS: This is a 64-year-old female with a past medical history significant for hy pertension, hyperlipidemia, diabetes mellitus, sleep apnea, hypothyroidism, GERD, and morbid obesity. Patient follows in the office with Dr. Reyes. We have been asked to see the patient in consultation for chest pain. Patient complains of chest pain in the midsternal area that is going on for a couple of days. It starts in the middle of her sternum and then goes into her abdomen. She also complains of left arm jaw and shoulder pain. Pain lasts for a few minutes and goes away on its own. Activity does not change or chest pain. She also has other symptoms with shortness of breath, dizziness, lower extremity edema and palpitations. No fever. She also has nausea and vomited a few days ago. She states she has some right red rectal bleeding from hemorrhoids. No history of stroke or seizure. She is a nonsmoker. EKG reveals sinus rhythm without signs of acute ischemia. Chest xray negative for acute process. CBC normal. INR 1. D-dimer 0.29. Sodium 135, potassium 3.9, chloride 106, CO2 21, BUN 19 and creatinine 0.95. Blood sugar 108. Magnesium 1.7. Liver function tests are normal. Troponin negative 3. TSH 1.130. Urinalysis negative for infection. [place] level 0.4. Current home cardiac medications include aspirin 81 mg daily, valsartan 80 mg daily, atorvastatin 80 mg daily, Lasix 40 mg daily Echocardiogram 09/2021 revealed technically difficult study, normal left ve ntricular dimension and systolic function, mild mitral regurgitation. Cardiac catheterization history: September [address] Amaya revealing normal coronary arteries with mild calcification in proximal LAD 09/18 Patient is seen in recheck. She continues to have intermittent chest pain that worsens with deep breath. She denies shortness of breath. BP 101/62, HR 60s. Patient underwent dobutamine stress and echocardiogram. Results reviewed with the patient. Dobutamine stress test normal. Echocardiogram reveals normal left ventricular size and systolic function. Mild MR and trace TR. Cannot exclude PFO with left to right shunting. PHYSICAL EXAM: VITAL SIGNS: Reviewed. GENERAL: Well-developed in no acute distress. HEENT: Head is normocephalic. Pupils are equal, round. Sclerae anicteric. Mucous membranes of the mouth are moist. Neck supple. No JVD or thyromegaly LUNGS: Respirations even and unlabored. Lungs essentially clear to auscultation bilaterally. HEART: Regular rate and rhythm. S1 and S2 heard. Soft systolic murmur ABDOMEN: Soft. Nondistended. Nontender. EXTREMITIES: Decreased range of motion of left upper extremity. No clubbing or cyanosis. Peripheral pulses intact. No lower extremity edema NEUROLOGIC: Awake and alert. Oriented x 3. ASSESSMENT: Chest pain, atypical, acute coronary syndrome ruled out Hypertension Hyperlipidemia Diabetes mellitus Sleep apnea not using CPAP machine GERD Hypothyroidism Morbid obesity: BMI 65.5 PLAN: Resume home cardiac medications Patient is cleared for discharge from cardiology. Follow-up in the office with Dr. ANTONIO Reyes in one week. Nurse practitioner note has been reviewed by physician. Signing provider agrees with the documented findings, assessment, and plan of care. Objective - Vital Signs Vital signs: Vital Signs Temp 98.4 F 09/18/22 07:00 Pulse 60 09/18/22 07:00 Resp 16 09/18/22 07:00 BP 101/62 09/18/22 07:00 Pulse Ox 96 09/18/22 07:00 FiO2 Intake & Output 09/17/22 09/18/22 09/18/22 18:59 06:59 18:59 Intake Total 118 Output Total 1200 Balance -1082 Intake: Oral 118 Output: Urine 1200 Other: Voiding Method External Catheter Toilet # Voids 5 2 - Labs CBC & Chem 7: 09/17/22 05:40 09/17/22 05:40 Labs: Abnormal Lab Results - Last 24 Hours (Table) 09/17/22 09/17/22 09/17/22 Range/Units 05:40 05:40 13:19 Hgb 11.1 L (12.0-15.0) d/dL Hct 36.9 L (37.2-46.3) % MCH 26.0 L (27.0-32.0) pg MCHC 30.1 L (32.0-37.0) d/dL POC Glucose (mg/dL) 132 H (70-110) mg/dL Calcium 8.6 L (8.7-10.3) mg/dL
[2022-09-18 11:14] LABS: BUN/Creat Ratio 15.18 Ratio (12.00-20.00); Blood Urea Nitrogen 16.7 mg/dL (9.0-27.0); Calcium 9.3 mg/dL (8.7-10.3); Carbon Dioxide 21.6 mmol/L (21.6-31.8); Chloride 104 mmol/L (96-109); Glucose 125 mg/dL (70-110); Potassium 4.5 mmol/L (3.5-5.5); Sodium 139 mmol/L (135-145)
[2022-09-18 11:23] LABS: Glucose,Whole Blood 120 mg/dL (70-110)
[2022-09-18 12:03] LABS: Basophils # (A) 0.09 X 10*3/uL (0.00-0.10); Basophils % (A) 0.9 %; Elliptocytes 2+; Eosinophils # (A) 0.21 X 10*3/uL (0.04-0.35); HGB 12.3 d/dL (12.0-15.0); Lymphocytes # (A) 3.14 X 10*3/uL (0.90-5.00); Lymphocytes % (A) 30.6 %; MCH 26.5 pg (27.0-32.0); MCHC 30.8 d/dL (32.0-37.0); Mean Platelet Volume 11.7 FL (9.5-12.2); Microcytosis (M) 2+; Monocytes # (A) 0.83 X 10*3/uL (0.20-1.00); Monocytes % (A) 8.1 %; NRBC Per 100 WBC 0 X 10*3/uL (0.00-0.01); Neutrophils # (A) 5.95 X 10*3/uL (1.80-7.70); Neutrophils % (A) 58.1 %; Platelet Count 387 X 10*3/uL (140-440); RBC 4.65 X 10*6/uL (4.10-5.20); WBC 10.25 X 10*3/uL (4.50-10.00)
--- NOTE | 2022-09-18 12:04 | CT ---
EXAMINATION TYPE: CT brain wo con for TPA DATE OF EXAM: 09/18/2022 COMPARISON: 10/12/2019 HISTORY: 67-year-old female with neurologic deficit, acute, CVA TECHNIQUE: Examination was done in axial plane without intravenous contrast. Coronal and sagittal r econstructions performed. CT DLP: 1047.1 mGycm Automated exposure control for dose reduction was used. FINDINGS: There is no evidence of acute intracranial hemorrhage, acute ischemic changes, mass, mass-effect, or extra-axial fluid collection. There is no effacement of cerebral sulci or basal subarachnoid cister ns. There is no hydrocephalus. There is no midline shift. Danielle-white matter distinction is preserv ed. Mild white matter hypodensities in both cerebral hemispheres. Partially empty sella. Paranasal sinuses and mastoid air cells well pneumatized. Orbits and globes are intact. IMPRESSION: No acute intracranial abnormality seen.
[2022-09-18 12:40] LABS: Basophils % (A) 1 %; Eosinophils # (A) 0.2 k/uL (0-0.7); Eosinophils % (A) 2 %; HCT 37.7 % (34.0-46.0); HGB 11.8 gm/dL (11.4-16.0); Hypochromasia Slight; Lymphocytes # (A) 1.7 k/uL (1.0-4.8); Lymphocytes % (A) 22 %; MCHC 31.3 g/dL (31.0-37.0); Mean Platelet Volume 8.7; Monocytes # (A) 0.4 k/uL (0-1.0); Monocytes % (A) 6 %; Neutrophils # (A) 5.3 k/uL (1.3-7.7); Neutrophils % (A) 68 %; Platelet Count 272 k/uL (150-450); RBC 4.38 m/uL (3.80-5.40); RDW 13.7 % (11.5-15.5); WBC 7.7 k/uL (3.8-10.6)
--- NOTE | 2022-09-18 12:48 | CT ---
EXAMINATION TYPE: CODE STROKE: CTA head neck CT DLP: 593.8 mGycm, Automated exposure control for dose reduction was used. DATE OF EXAM: 09/18/2022 12:35 PM COMPARISON: None. CLINICAL INDICATION:Female, 67 years old with history of code stroke, cva TECHNIQUE: Axially acquired helical CT angiogram of the head and neck was obtained with contrast. Axi al images are supplemented with 3D reconstructions [facility] NASCET criteria used. Contrast used:65cc mL of Isovue 370 with IV Contrast, Oral contrast used: None. FINDINGS: CTA HEAD: No evidence of acute intracranial hemorrhage, mass effect, or midline shift. The ventricles, sulci, a nd cisterns are unremarkable. The visualized portions of the internal carotid arteries, middle cerebral arteries, anterior cerebral arteries, and posterior cerebral arteries are patent. The basilar and vertebral arteries are patent. origin of the left posterior cerebral artery. CTA NECK: Right Carotid System: The common carotid and external carotid arteries are patent. There is approximately 50% stenosis at t he carotid bifurcation secondary to calcified plaque. The rest of the internal carotid artery is beyer nt. Left Carotid System: The common carotid and external carotid arteries are patent. There is approximately 50% stenosis at t he carotid bifurcation secondary to calcified plaque. The rest of the internal carotid artery is beyer nt. Vertebral arteries are patent without evidence hemodynamically significant stenosis. There is a two-vessel aortic arch. The origins of the great vessels are patent. No evidence of hemody namically significant stenosis. Upper thorax: IMPRESSION: 1. Approximately 50% stenosis of the bilateral carotid bifurcation secondary to calcified plaque. 2. No evidence of dissection of the cervical internal carotid arteries or vertebral arteries 3. No evidence of intracranial high-grade stenosis or intracranial aneurysm.
[2022-09-18] MEDS ORDERED: ALTEPLASE 81 MG in EMPTY BAG 1 BAG IV STA (12:55)
[2022-09-18] MEDS ORDERED: ALTEPLASE BOLUS FOR STROKE 9 MG in EMPTY SYRINGE 1 SYR IV STA (12:55)
[2022-09-18 12:58] LABS: ALT 17 U/L (4-34); AST 21 U/L (14-36); African American GFR (CKD) 73 (>60 ml/min/1.73 sqM); Albumin 3.8 g/dL (3.5-5.0); Albumin/Globulin Ratio 1.5; Alkaline Phosphatase 56 U/L (38-126); Anion Gap 9 mmol/L; Blood Urea Nitrogen 16 mg/dL (7-17); Calcium 8.8 mg/dL (8.4-10.2); Carbon Dioxide 24 mmol/L (22-30); Chloride 104 mmol/L (98-107); Globulin 2.5 g/dL; Glucose 105 mg/dL (74-99); Non-African American GFR(CKD) 63 (>60 ml/min/1.73 sqM); Potassium 4.3 mmol/L (3.5-5.1); Sodium 137 mmol/L (137-145); Total Bilirubin 0.7 mg/dL (0.2-1.3); Total Protein 6.3 g/dL (6.3-8.2)
[2022-09-18] MEDS ORDERED: DEXTROSE 50% SYRINGE 50 ML IVP PRN ×2 (13:07)
[2022-09-18 13:14] LABS: Partial Thromboplastin Time 23.1 sec (22.0-30.0); Prothrombin Time 10.7 sec (9.0-12.0)
--- NOTE | 2022-09-18 13:14 | P.PN ---
Subjective Progress Note Date: 09/18/22 This is a 67 year old female with medical history of asthma, sleep apnea with CPAP use, hyperlipidemia, hypertension, diabetes mellitus, thyroid disorder anxiety depression. Patient came in for complaints of week long history of weakness and fatigue as well as chest pain in the mid sternum radiating to the left arm and jaw which has been ongoing for the last few days. Patient waited it out at home and pain was not improving, also reports associated dizziness, lightheadedness and diaphoresis. Patient denies any fever or chills, no cough. Does have a history of cardiac catheterization with no prior stenting reported. Has strong family history of coronary artery disease, all 5 of her brothers have underwent coronary bypass. Work up reveals normal hemoglobin 12.0, white count normal. D-Dimer is normal at 0.29, normal kidney function, troponin level negative x 3 and proBNP level of 20. Urinalysis is negative. TSH is normal at 1.130. Patient will be admitted in observation and cardiology has been c onsulted. 09/18/2022 Patient is evaluated today sitting up on edge of bed continues to report fatigue and weakness. 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 Patient underwent dobutamine stress echo which was negative, echocardiogram reveals an EF 55-60% and cannot exclude a PFO with left to right shunting. Cardiology has cleared the patient to follow up in the office. Recommending to check ABGs and patient will be started on inhaled steroids. Patient does feel like she may have "long covid" does not feel fully recovered since having covid 1 year ago. Review of Systems Constitutional: Reports fatigue denied any fever. Cardio vascular: denied any chest pain, palpitations Gastrointestinal: denied any nausea, vomiting, diarrhea Pulmonary: Reports shortness of breath, no cough Neurologic denied any new focal deficits, reports weakness All inpatient medications were reviewed and appropriate changes in these medications as dictated in the interval history and assessment and plan. PHYSICAL EXAMINATION: GENERAL: The patient is alert and oriented x3, not in any acute distress. Well developed, well nourished. Obesity HEENT: Pupils are round and equally reacting to light. EOMI. No scleral icterus. No conjunctival pallor. Normocephalic, atraumatic. No pharyngeal erythema. No thyromegaly. CARDIOVASCULAR: S1 and S2 present. No murmurs, rubs, or gallops. PULMONARY: Chest is clear to auscultation, no wheezing or crackles. ABDOMEN: Soft, nontender, nondistended, normoactive bowel sounds. No palpable organomegaly. MUSCULOSKELETAL: No joint swelling or deformity. EXTREMITIES: No cyanosis, clubbing, or pedal edema. NEUROLOGICAL: Gross neurological examination did not reveal any focal deficits. SKIN: No rashes. Assessment Chest pain and fatigue, acute coronary syndrome ruled out Sinus bradycardia Thyroid disorder normal TSH Hx hypertension Hx hyperlipidemia Diabetes Mellitus type 2 Sleep apnea with CPAP use Anxiety/Depression Morbid Obesity with BMI 60.5. Full Code Plan Cardiology consultation in place recommending outpatient f/u Check ABGs and recommending to check Vitamin D level Patient may benefit from inhaled steroid in addition to albuterol PRN Discussed with patient following up with pulmonary as discharge Patient to be discharged home later today The impression and plan of care has been dictated by Ashley Kendrick Nurse Practitioner as directed. Dr. Fatmata MD I have performed a history and physical examination and medical decision making of this patient, discussed the same with the dictator, and agree with the dictators assessment and plan as written, documented as a scribe. Based on total visit time, I have performed more than 50% of this visit. Objective - Vital Signs Vital signs: Vital Signs Temp 98.4 F 09/18/22 07:00 Pulse 68 09/18/22 11:28 Resp 15 09/18/22 11:28 BP 153/89 09/18/22 11:28 Pulse Ox 100 09/18/22 11:28 FiO2 Intake & Output 09/17/22 09/18/22 09/18/22 18:59 06:59 18:59 Intake Total 118 Output Total 1200 Balance -1082 Intake: Oral 118 Output: Urine 1200 Other: Voiding Method External Catheter Toilet Toilet # Voids 5 2 - Labs CBC & Chem 7: 09/18/22 12:24 09/18/22 12:24 Labs: Abnormal Lab Results - Last 24 Hours (Table) 09/17/22 09/18/22 09/18/22 Range/Units 13:19 06:39 06:39 WBC 10.25 H (4.50-10.00) X 10*3/uL MCH 26.5 L (27.0-32.0) pg MCHC 30.8 L (32.0-37.0) d/dL Microcytosis (manual) 2+ A Elliptocytes 2+ A Anion Gap 13.40 H (4.00-12.00) mmol/L Est GFR (CKD-EPI) 56 L (>=60) Glucose 125 H (70-110) mg/dL POC Glucose (mg/dL) 132 H (70-110) mg/dL 09/18/22 09/18/22 Range/Units 11:22 12:24 WBC (4.50-10.00) X 10*3/uL MCH (27.0-32.0) pg MCHC (32.0-37.0) d/dL Microcytosis (manual) Elliptocytes Anion Gap (4.00-12.00) mmol/L Est GFR (CKD-EPI) (>=60) Glucose 105 H (70-110) mg/dL POC Glucose (mg/dL) 120 H (70-110) mg/dL Assessment and Plan Time with Patient: Less than 30
[2022-09-18 13:18] LABS: Glucose,Whole Blood 100 mg/dL (70-110)
[2022-09-18] MEDS ORDERED: NALOXONE 0.4 MG/ML 1 ML VIAL IV PRN (13:42)
[2022-09-18] MEDS ORDERED: SODIUM CHLORIDE 0.9% 50 ML MINI-BAG IV ONE ×2 (13:56→14:23)
--- NOTE | 2022-09-18 14:52 | P.CNPUL ---
History of Present Illness Consult date: 09/18/22 Requesting physician: Dick Avilez Reason for consult: other (Critical care management) Chief complaint: Chest pain, weakness History of present illness: This is a 67-year-old female patient with a known history of obesity, obstructive sleep apnea not using her CPAP, anemia, anxiety, asthma, diabetes mellitus, hyperlipidemia, hypothyroidism, lifelong nonsmoker. She presented here to the emergency room on 09/16/2022 with complaints of chest pain that had been waxing and waning for 4 days prior. Echocardiogram revealed preserved left ventricular systolic function with ejection fraction 55-60%. Cannot exclude a PFO with [id number] shunting. Dobutamine stress echo revealed no evidence of myocardial ischemia. White count 7.7. Hemoglobin 11.8. Platelets 272. Sodium 137. Potassium 4.3. Bicarb 24. BUN 16. Creatinine 0.95. Glucose 105. Earlier today the patient was up with assistance and became confused and weak and developed a left-sided facial drooping and a code stroke was called. Computed tomography scan of brain revealed no acute intracranial abnormality. CT angiogram revealed a possibly 50% stenosis of the bilateral carotid bifurcation. No evidence of dissection. No evidence of intracranial high-grade stenosis or intracranial aneurysm. She did receive TPA approximately 1:20 PM this afternoon. She is seen in consultation in the intensive care unit. She continues with a left-sided facial droop. All 4 extremities are weak. Pupils are equal and reactive. She is alert. Answering questions. She is complaining of a headache. Review of Systems REVIEW OF SYSTEMS: CONSTITUTIONAL: Denies any recent significant weight loss or weight gain. EYES: Denies change in vision. EARS, NOSE, MOUTH, THROAT: Denies headaches, denies sore throat. CARDIOVASCULAR: Positive for chest pain, no palpitations or syncopal episodes. RESPIRATORY: Denies shortness of breath, cough, congestion or hemoptysis. GASTROINTESTINAL: Denies change in appetite, denies abdominal pain GENITOURINARY: Denies hematuria, denies infections. MUSKULOSKELETAL: Denies pain, denies swelling. INTEGUMENTARY: Denies rash, denies eczema. NEUROLOGICAL: Positive for headache. Denies recent memory loss, no recent seizure activity. PSYCHIATRIC: Denies anxiety, denies depression. HEMATOLOGIC/LYMPHATIC: Denies anemia, denies enlarged lymph nodes. 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 Past Anesthesia/Blood Transfusion Reactions: Family History of Problems w/ A nesthesia, Motion Sickness Additional Past Anesthesia/Blood Transfusion Reaction / Comment(s): clausterphobia. pt's sister had diff breathing from anesthesia Past Psychological History: Anxiety, Depression, Panic Disorder Smoking Status: Never smoker Past Alcohol Use History: None Reported Past Drug Use History: None Reported - Past Family History Son(s) Additional Family Medical History / Comment(s): She has 2 sons with no major medical problems. Patient does not have any daughters. Mother Additional Family Medical History / Comment(s): Mother at age 80 from renal failure. Father Additional Family Medical History / Comment(s): Father at age 67 with history of OH and stroke Brother(s) Family Medical History: Cancer Additional Family Medical History / Comment(s): She has total of 5 brothers and all had history of coronary artery disease and CABG, hypertension, hyperlipidemia, diabetes. Sister(s) Family Medical History: Cancer Additional Family Medical History / Comment(s): one sister of colon cancer, second sister had ovarian cancer Medications and Allergies Home Medications Medication Instructions Recorded Confirmed Type Atorvastatin [Lipitor] 80 mg PO HS 01/22/18 09/16/22 History Levothyroxine Sodium 150 mcg PO DAILY 01/22/18 09/16/22 History Albuterol Sulfate [Ventolin HFA] 2 puff INHALATION RT-Q4H PRN 10/10/19 09/16/22 History Aspirin 81 mg PO DAILY chew 10/15/19 09/16/22 Rx Fluticasone Nasal Quinter [Flonase 1 spray EA NOSTRIL DAILY PRN 04/27/20 09/16/22 History Nasal Quinter] Furosemide [Lasix] 40 mg PO DAILY 04/27/20 09/16/22 History Nystatin 100,000Unit/gm Cream 1 applic TOPICAL BID 04/27/20 09/16/22 History [Mycostatin Cream] Potassium Chloride ER [K-Dur 10] 10 meq PO DAILY 04/27/20 09/16/22 History Valsartan 80 mg PO HS 04/27/20 09/16/22 History lamoTRIgine [lamoTRIgine ER] 50 mg PO HS 10/06/21 09/16/22 History lamoTRIgine [lamoTRIgine ER] 100 mg PO HS 10/06/21 09/16/22 History [place] Carbonate [[place] 300 mg PO HS 09/16/22 09/16/22 History Carbonate ER] Melatonin 5 mg PO HS 09/16/22 09/16/22 History Omeprazole 20 mg PO DAILY 09/16/22 09/16/22 History Pantoprazole [Protonix] 40 mg PO DAILY 09/16/22 09/16/22 History metFORMIN HCL ER [Glucophage XR] 1,000 mg PO BID 09/16/22 09/16/22 History Nystatin 100,000 Unit/gm Powd 1 applic TOPICAL TID #1 each 09/18/22 Rx [Mycostatin Powder] Allergies Allergy/AdvReac Type Severity Reaction Status Date / Time sulfamethoxazole Allergy Unknown Rash/Hives, Verified 09/16/22 14:51 [From Bactrim] SOB trimethoprim [From Bactrim] Allergy Unknown Rash/Hives, Verified 09/16/22 14:51 SOB Physical Exam Vitals: Vital Signs Temp Pulse Pulse Resp BP BP Pulse Ox 09/18/22 11:32 97.8 F 56 L 18 133/43 94 L 09/18/22 11:28 68 15 153/89 100 09/18/22 11:25 69 20 128/79 98 09/18/22 07:00 98.4 F 60 16 101/62 96 09/18/22 02:00 62 09/18/22 01:28 98.3 F 62 18 104/68 94 L 09/17/22 21:23 68 18 09/17/22 20:04 98.6 F 68 16 110/66 95 09/17/22 15:00 98.2 F 66 18 98/67 95 Intake and Output 09/17/22 09/18/22 09/18/22 22:59 06:59 14:59 Intake Total 81 Output Total 250 Balance -169 Intake: Intake, IV Titration 81 Amount Alteplase 81 mg In Empty 81 Bag 1 bag @ 81 mls/hr IV ONCE STA Rx#:[id number] Output: Urine 250 Other: Voiding Method Toilet Toilet Toilet # Voids 2 GENERAL EXAM: Alert, weak, 67-year-old female, on room air, comfortable in no apparent distress. HEAD: Normocephalic. Left-sided facial droop noted. EYES: Normal reaction of pupils, equal size. NOSE: Clear with pink turbinates. THROAT: No erythema or exudates. NECK: No masses, no JVD. CHEST: No chest wall deformity. LUNGS: Equal air entry with no crackles, wheeze, rhonchi or dullness. CVS: S1 and S2 normal with no audible murmur, regular rhythm. ABDOMEN: No hepatosplenomegaly, normal bowel sounds, no guarding or rigidity. SPINE: No scoliosis or deformity SKIN: No rashes CENTRAL NERVOUS SYSTEM: Left-sided facial droop. Generalized weakness of all 4 extremities, tone is normal. EXTREMITIES: There is no peripheral edema. No clubbing, no cyanosis. Peripheral pulses are intact. Results - Laboratory Findings CBC and BMP: 09/18/22 12:24 09/18/22 12:24 PT/INR, D-dimer PT 10.7 sec (9.0-12.0) 09/18/22 12:24 INR 1.0 (<1.2) 09/18/22 12:24 D-Dimer 0.29 mg/L FEU (<0.60) 09/16/22 14:07 Abnormal lab findings: Abnormal Labs 09/16/22 09/16/22 09/16/22 14:07 14:07 15:09 WBC Hgb Hct MCH MCHC Microcytosis (manual) Elliptocytes APTT 20.8 L Sodium 135 L Carbon Dioxide 21 L Anion Gap BUN 19 H Est GFR (CKD-EPI) Glucose 108 H POC Glucose (mg/dL) Calcium Urine Ketones 1+ H 0709/17/22 09/17/22 05:40 05:40 13:19 WBC Hgb 11.1 L Hct 36.9 L MCH 26.0 L MCHC 30.1 L Microcytosis (manual) Elliptocytes APTT Sodium Carbon Dioxide Anion Gap BUN Est GFR (CKD-EPI) Glucose POC Glucose (mg/dL) 132 H Calcium 8.6 L Urine Ketones 09/18/22 09/18/22 09/18/22 06:39 06:39 11:22 WBC 10.25 H Hgb Hct MCH 26.5 L MCHC 30.8 L Microcytosis (manual) 2+ A Elliptocytes 2+ A APTT Sodium Carbon Dioxide Anion Gap 13.40 H BUN Est GFR (CKD-EPI) 56 L Glucose 125 H POC Glucose (mg/dL) 120 H Calcium Urine Ketones 09/18/22 12:24 WBC Hgb Hct MCH MCHC Microcytosis (manual) Elliptocytes APTT Sodium Carbon Dioxide Anion Gap BUN Est GFR (CKD-EPI) Glucose 105 H POC Glucose (mg/dL) Calcium Urine Ketones - Diagnostic Findings Chest x-ray: image reviewed Assessment and Plan Assessment: Acute CVA with left-sided facial droop and generalized weakness, status post TPA today 09/18/2022 Atypical chest pain, dobutamine stress echo revealed no evidence of ischemia Morbid obesity with a BMI of 60.5 kg per metered square History of obstructive sleep apnea not utilizing CPAP in the outpatient setting Hypertension Hyperlipidemia Diabetes mellitus History of anxiety/depression Plan: The patient was seen and evaluated Chest x-ray, CT brain, CT angiogram, labs and medications reviewed Status post TPA with residual weakness and left-sided facial droop Continue to monitor her neurologic status and neurology consulted Continue to monitor closely here in the ICU We will continue to follow and make further recommendations based on her clinical status I have personally seen and examined the patient, performed the documentation and the assessment and plan as written. Number of minutes spent on the visit: 20.
[2022-09-18 18:18] LABS: Glucose,Whole Blood 104 mg/dL (70-110)
[2022-09-18] MEDS: ACETAMINOPHEN TAB 325 MG TAB PO PRN (18:19)
[2022-09-18] MEDS: INSULIN ASPART (NovoLOG) 100 UNIT/ML VIAL SQ SCH ×2 (18:19→20:18)
--- NOTE | 2022-09-18 18:53 | P.CNNES ---
History of Present Illness Consult date: 09/18/22 Requesting physician: Romulo Rivera Reason for Consult: Code stroke History of Present Illness: Patient is a 67-year-old female who came to the hospital by ambulance 2 days ago on 09/16/2022 at 1:32 PM for chief complaints of nausea vomiting diarrhea for past 1 week and chest pain for the last few days. When EMS arrived, patient was alert and oriented 4 with GCS of 15, able to answer all questions. Patient's vitals at the scene was blood pressure 138/54 pulse rate 68 respiration 18, saturation 100%. Patient in the hospital has been complaining of significant fatigue and generalized weakness. Patient had a dobutamine stress echo, which was negative. However the echo did reveal possibility of PFO with [id number]-[id number] shunt. At 11:30 AM, patient developed acute changes mental status and facial drooping. Stroke code was activated. Patient's NIH stroke scale initially reported by the nursing staff at 11:30 AM was 17. Patient's vitals were blood pressure 133/43, pulse rate 56, saturation 94% and temperature 97.8. Patient was complaining of aphasia, confusion, weakness and dizziness. Patient was taken for stat computed tomography scan of the head, and CTA of head and neck. When the patient returne d back from the imaging, I saw the patient at around 12:15 PM. Patient's NIH stroke scale was noted to be around 8. Patient was complaining of severe headache, and not able to provide history in detail. Patient has inconsistent response. Patient was also evaluated by Dr. Martinez neuro intervention, who recommended TPA at 12:39 PM. Patient was transferred to ICU, and received bolus dose of tPA at 1:20 PM. Patient's most recent blood test shows WBC 7.7, hemoglobin 11.8, normal platelets 272. PT/PTT normal. Chem-20 normal. Troponin negative. Patient's last UA was negative. Patient does have history of bipolar disorder, and her Lamictal level was therapeutic 4.3 (2-15), and lithium level was 0.4 which is also normal. CT head revealed no acute intracranial abnormality seen. I personally reviewed CT head, agree with the findings. Patient has been on aspirin 81 mg daily at home. Patient also on Lipitor 80 mg, levothyroxine, valsartan 80 mg, potassium, Lasix, Lamictal 150 mg daily. Protonix, omeprazole, metformin and lithium. Patient did receive her aspirin 81 mg today at 9:30 AM. Patient has been seen by myself for vertigo on 10/12/2019, which was felt to be related to peripheral vestibular dysfunction. Patient also has been seen by Dr. Clinton Rivera on 04/29/2020 for left arm weakness, which was felt to be possibly cervical in origin. Review of Systems The only review of systems available is dizziness, headache, chest pain, generalized weakness, fatigue. Patient not able to provide rest of the review of systems. ROS unobtainable: due to mental status Past Medical History Past Medical History: Asthma, Chest Pain / Angina, Diabetes Mellitus, GERD/Reflux, Hyperlipidemia, Sleep Apnea/CPAP/BIPAP, Thyroid Disorder Additional Past Medical History / Comment(s): freddy-not using her cpap machine anemia, chest pain "from anxiety", sometimes low BP, occ palpitations, diverticulosis, kidney stone, "leaky heart valve".fall in broke rib on rt side, 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 Past Anesthesia/Blood Transfusion Reactions: Family History of Problems w/ Anesthesia, Motion Sickness Additional Past Anesthesia/Blood Transfusion Reaction / Comment(s): clausterphobia. pt's sister had diff breathing from anesthesia Past Psychological History: Anxiety, Depression, Panic Disorder Smoking Status: Never smoker Past Alcohol Use History: None Reported Past Drug Use History: None Reported - Past Family History Son(s) Additional Family Medical History / Comment(s): She has 2 sons with no major medical problems. Patient does not have any daughters. Mother Additional Family Medical History / Comment(s): Mother at age 80 from renal failure. Father Additional Family Medical History / Comment(s): Father at age 67 with history of MT and stroke Brother(s) Family Medical History: Cancer Additional Family Medical History / Comment(s): She has total of 5 brothers and all had history of coronary artery disease and CABG, hypertension, hyperlipidemia, diabetes. Sister(s) Family Medical History: Cancer Additional Family Medical History / Comment(s): one sister of colon cancer, second sister had ovarian cancer Medications and Allergies Home Medications Medication Instructions Recorded Confirmed Type Atorvastatin [Lipitor] 80 mg PO HS 01/22/18 09/16/22 History Levothyroxine Sodium 150 mcg PO DAILY 01/22/18 09/16/22 History Albuterol Sulfate [Ventolin HFA] 2 puff INHALATION RT-Q4H PRN 10/10/19 09/16/22 History Aspirin 81 mg PO DAILY chew 10/15/19 09/16/22 Rx Fluticasone Nasal Pipestem [Flonase 1 spray EA NOSTRIL DAILY PRN 04/27/20 09/16/22 History Nasal Pipestem] Furosemide [Lasix] 40 mg PO DAILY 04/27/20 09/16/22 History Nystatin 100,000Unit/gm Cream 1 applic TOPICAL BID 04/27/20 09/16/22 History [Mycostatin Cream] Potassium Chloride ER [K-Dur 10] 10 meq PO DAILY 04/27/20 09/16/22 History Valsartan 80 mg PO HS 04/27/20 09/16/22 History lamoTRIgine [lamoTRIgine ER] 50 mg PO HS 10/06/21 09/16/22 History lamoTRIgine [lamoTRIgine ER] 100 mg PO HS 10/06/21 09/16/22 History Lawnside Carbonate [Lawnside 300 mg PO HS 09/16/22 09/16/22 History Carbonate ER] Melatonin 5 mg PO HS 09/16/22 09/16/22 History Omeprazole 20 mg PO DAILY 09/16/22 09/16/22 History Pantoprazole [Protonix] 40 mg PO DAILY 09/16/22 09/16/22 History metFORMIN HCL ER [Glucophage XR] 1,000 mg PO BID 09/16/22 09/16/22 History Nystatin 100,000 Unit/gm Powd 1 applic TOPICAL TID #1 each 09/18/22 Rx [Mycostatin Powder] Allergies Allergy/AdvReac Type Severity Reaction Status Date / Time sulfamethoxazole Allergy Unknown Rash/Hives, Verified 09/16/22 14:51 [From Bactrim] SOB trimethoprim [From Bactrim] Allergy Unknown Rash/Hives, Verified 09/16/22 14:51 SOB Physical Examination - Vital Signs Vital Signs: Vital Signs Temp Pulse Resp BP Pulse Ox 09/18/22 11:28 68 15 153/89 100 09/18/22 11:25 69 20 128/79 98 09/18/22 07:00 98.4 F 60 16 101/62 96 09/18/22 02:00 62 09/18/22 01:28 98.3 F 62 18 104/68 94 L 09/17/22 21:23 68 18 09/17/22 20:04 98.6 F 68 16 110/66 95 09/17/22 15:00 98.2 F 66 18 98/67 95 09/17/22 14:00 56 L Intake and Output 09/17/22 09/18/22 09/18/22 22:59 06:59 14:59 Other: Voiding Method Toilet Toilet Toilet # Voids 2 Patient is an elderly female, who is somewhat obtunded. She keeps her eyes closed, but then has very unusual affect, as on repeated instruction, she opened her eyes widely and stayed open almost like staring. The gaze is midline, although she keeps her head to the right side. Patient appears somewhat encephalopathic. Slow mentation. Patient is showing some inconsistent response, sometimes more appropriate, other times mumbles, or does not respond. No obvious seizure-like activity noted. Patient did not speak much, but whatever she said was clear. No obvious aphasia or dysarthria. She was able to name objects like pencil, eyeglasses fairly normally. Sometimes her speech would be more effort full. Occasionally she would stutter. No clearcut aphasia or dysarthria. Attention, concentration is impaired and fund of knowledge cannot be assessed due to mental status. On cranial nerve examination, pupils are equal, round and reacting to light, visual eid are full on confrontation, with no neglect on double sisimultaneous stimulation. Initially patient was not moving her eyes to either side, but later she started moving her eyes to either side with no extraocular muscle palsy. No obvious nystagmus. Patient has left facial weakness noticed. Patient very unusually protrudes her tongue to the extreme right corner of the mouth. When I instructed her to stick it out, she would very minimally stick her tongue between her breast. She would not open her mouth. Palatal elevation and sensation cannot be tested. Shoulder shrug and facial sensations could not be tested reliably. On muscle strength testing, patient at times would not hold her arms up. Other times patient has the arms up, and after a varying periods of 2-6 seconds, slowly bring it down to the bed. There was no flaccidity, or any focal weakness noted with her arm on either side. Patient would not make computer game tester with each hand. She would flex or adduct the thumb with her lateral palm, but would not make a computer game tester. Her biceps, triceps appears equal. Patient not able to move her legs bilaterally. Deep tendon reflexes are symmetric about 1+ and plantars flat bilaterally. Sensory to touch is equal with no neglect on double simultaneous stimulation. Cerebellar function showed no ataxia for qaraqo-uj-wgei testing, although she was tremulous for jcbwiq-mf-gxof testing bilaterally. Not able to check sjtn-sz-cfow testing bilaterally. Tone and bulk of muscles normal. Gait deferred.. On general examination, there is no carotid bruit or murmur, S1-S2 audible. Chest is clear on consultation. Abdomen is soft nontender. No organomegaly, bowel sounds present. Patient has peripheral edema. Results - Laboratory Findings CBC and BMP: 09/19/22 05:58 09/19/22 05:58 Abnormal Lab Findings: Abnormal Labs 09/16/22 09/16/22 09/16/22 14:07 14:07 15:09 WBC Hgb Hct MCH MCHC Microcytosis (manual) Elliptocytes APTT 20.8 L Sodium 135 L Carbon Dioxide 21 L Anion Gap BUN 19 H Est GFR (CKD-EPI) Glucose 108 H POC Glucose (mg/dL) Calcium Urine Ketones 1+ H 09/17/22 09/17/22 09/17/22 05:40 05:40 13:19 WBC Hgb 11.1 L Hct 36.9 L MCH 26.0 L MCHC 30.1 L Microcytosis (manual) Elliptocytes APTT Sodium Carbon Dioxide Anion Gap BUN Est GFR (CKD-EPI) Glucose POC Glucose (mg/dL) 132 H Calcium 8.6 L Urine Ketones 09/18/22 09/18/22 09/18/22 06:39 06:39 11:22 WBC 10.25 H Hgb Hct MCH 26.5 L MCHC 30.8 L Microcytosis (manual) 2+ A Elliptocytes 2+ A APTT Sodium Carbon Dioxide Anion Gap 13.40 H BUN Est GFR (CKD-EPI) 56 L Glucose 125 H POC Glucose (mg/dL) 120 H Calcium Urine Ketones Assessment and Plan Assessment: * Acute altered mental status, with focal findings, possible acute CVA. Patient has left facial weakness, and weakness of bilateral lower limbs. Patient has some inconsistencies in examination, with tongue deviating to the extreme right corner of the mouth whereas she has left facial weakness. Likewise patient has weakness of bilateral lower limbs. Difficult to localize to any single anatomic region, although multifocal embolic ischemic process is a possibility. * Cephalalgia, unclear cause, rule out CVA. * Reported possible transient atrial fibrillation. * Diabetes * Hypertension * Sleep apnea * History of left Kelly's palsy * Borderline personality disorder, anxiety depression, currently on lithium and Lamictal * History of Kelly's palsy affecting left side of the face. Plan: * Patient was evaluated by myself personally, and also by neuro intervention Dr. Martinez via tele-neurology. Patient's NIH stroke scale at present is 8. Patient received TPA within the therapeutic window. Patient at baseline able to walk by herself with cane, however at this time not able to move her legs against gravity. * Check MRI of the brain without contrast, evaluate for acute CVA * EEG for altered mental status. * 2-D echo revealed normal left-ventricular size and systolic function, with EF estimated at 55-60%. Normal left ventricular wall motion. Mild MR with trace tricuspid regurgitation. Cannot exclude a PFO with njtq-hs-drirr shunting. Left atrium moderately dilated. * Patient may need GRAHAM for the further evaluation of a PFO and embolic source. Patient also has a possible ?transient run of atrial fibrillation during stroke symptoms did but the nurse on environmental monitoring technician while patient was in the CT department. Cardiology to be re-consulted. * CTA head and neck showed: Approximately 50% stenosis of the bilateral carotid bifurcations secondary to calcified plaque. No evidence of dissection of the cervical internal carotid arteries or vertebral arteries. No evidence of intracranial high-grade stenosis or intracranial aneurysm. * Fasting a.m. lipid panel from 06/27/2022 showed cholesterol 139, LDL 48.7, HDL 48 and triglycerides 211. Patient takes Lipitor 80 mg daily. * Hemoglobin A1c * Patient had previously borderline B12, folate, we will recheck. * Permissive hypertension for next 24-48 hours * Close neuro checks as per protocol. * Telemetry monitoring rule out any arrhythmia * DVT prophylaxis: Heparin 5000 units subcu every 8 hours, to be started 24 indy rs post-TPA * Neurology will continue to follow. Thank you for the consult. Addendum 8:30 PM: I spoke to patient's son Hermes on the phone. Informed him about the rationale of tPA and her current status. He mentions that patient has history of borderline personality disorder, anxiety and depression. Patient does not have any dementia. She usually walks with a cane because of her knee issues. Patient does not smoke, does not drink. She does have diabetes for 25 years which is well controlled. He believes the last A1c was 6.1. He states that when the patient gets tense or stressed out, she starts worrying and then goes into a worry spiral, and he has seen that she shakes her head and arms at that time. He has never seen a stress reaction producing leg weakness. That is new. At present patient complaining of new onset numbness of the left side of the face, and she has started stuttering. Her symptoms are fluctuating. Still complaining of headache 8/10 (despite giving Fioricet for headache), neck pain 8/10. We will check CT head to rule out any intracranial bleed. Time with Patient: Greater than 30
[2022-09-18] MEDS: BUTALB/APAP/CAFF 50-325-40MG TAB PO PRN (19:48)
[2022-09-18 19:56] LABS: Glucose,Whole Blood 117 mg/dL (70-110)
[2022-09-18] MEDS: lamoTRIgine 100 MG TAB PO SCH (20:17)
[2022-09-18] MEDS: ATORVASTATIN 80 MG TAB PO SCH (20:17)
[2022-09-18] MEDS: MELATONIN 5 MG TABLET PO SCH (20:17)
[2022-09-18] MEDS: LITHIUM CARBONATE 300 MG CAP PO SCH (20:17)
--- NOTE | 2022-09-18 23:01 | CT ---
EXAMINATION TYPE: CT brain wo con DATE OF EXAM: 09/18/2022 COMPARISON: 09/18/2022 INDICATION: New neuro deficit, rule out bleed DLP: 1161.4 mGycm, Automated exposure control for dose reduction was used. CONTRAST: None CT of the brain is performed utilizing 3 mm thick sections through the posterior fossa and 3 mm thick sections through the remaining calvarium. Study is performed within 24 hours of arrival to the hosp ital. No abnormal hyperdensity is present to suggest an acute intracranial hemorrhage. No mass lesion is evident. No acute infarcts are evident. Ventricles and sulci are appropriate for the patient age. Paranasal sinuses and mastoid air cells within the lrjbe-su-qvey are clear. IMPRESSIONS: 1. No acute intracranial process. Follow-up MRI performed.
[2022-09-19] MEDS: INSULIN ASPART (NovoLOG) 100 UNIT/ML VIAL SQ SCH ×4 (06:25→20:36)
[2022-09-19] MEDS: PANTOPRAZOLE 40 MG TABLET PO SCH (06:25)
[2022-09-19] MEDS: LEVOTHYROXINE 75 MCG TAB PO SCH (06:25)
[2022-09-19 06:26] LABS: Glucose,Whole Blood 93 mg/dL (70-110)
[2022-09-19 06:34] LABS: Basophils % (A) 0 %; Eosinophils # (A) 0.2 k/uL (0-0.7); Eosinophils % (A) 3 %; HCT 36.4 % (34.0-46.0); HGB 11.4 gm/dL (11.4-16.0); Lymphocytes # (A) 2.1 k/uL (1.0-4.8); Lymphocytes % (A) 29 %; MCH 26.7 pg (25.0-35.0); MCHC 31.5 g/dL (31.0-37.0); MCV 84.8 fL (80.0-100.0); Mean Platelet Volume 9.7; Monocytes # (A) 0.5 k/uL (0-1.0); Monocytes % (A) 7 %; Neutrophils # (A) 4.3 k/uL (1.3-7.7); Neutrophils % (A) 59 %; Platelet Count 269 k/uL (150-450); RBC 4.29 m/uL (3.80-5.40); RDW 13.8 % (11.5-15.5); WBC 7.2 k/uL (3.8-10.6)
[2022-09-19 06:38] LABS: African American GFR (CKD) 84 (>60 ml/min/1.73 sqM); Anion Gap 7 mmol/L; Blood Urea Nitrogen 12 mg/dL (7-17); Calcium 8.7 mg/dL (8.4-10.2); Carbon Dioxide 24 mmol/L (22-30); Chloride 108 mmol/L (98-107); Glucose 96 mg/dL (74-99); Magnesium 1.6 mg/dL (1.6-2.3); Non-African American GFR(CKD) 73 (>60 ml/min/1.73 sqM); Potassium 3.7 mmol/L (3.5-5.1); Sodium 139 mmol/L (137-145)
[2022-09-19] MEDS ORDERED: Potassium Replacement Protocol 1 EACH MISC MISCELLANE PRN (06:58)
[2022-09-19] MEDS ORDERED: Magnesium Replacement Protocol 1 EACH MISC MISCELLANE PRN (06:58)
[2022-09-19] MEDS ORDERED: POTASSIUM CHLORIDE ER 20 MEQ TAB.ER PO SCH (07:00)
[2022-09-19] MEDS: MAGNESIUM SULFATE-D5W PMX 1 GM in DEXTROSE/WATER 1 100ML.BAG IVPB SCH ×2 (09:34→12:47)
[2022-09-19] MEDS: BUTALB/APAP/CAFF 50-325-40MG TAB PO PRN ×2 (09:35→16:31)
[2022-09-19] MEDS: NYSTATIN 100,000 UNIT/GM POWD 15 GM TOPICAL SCH ×3 (09:36→21:45)
[2022-09-19] MEDS: ASPIRIN 81 MG PO SCH (09:37)
[2022-09-19] MEDS: metFORMIN 500 MG TAB PO SCH (09:38)
--- NOTE | 2022-09-19 10:14 | P.PN ---
Subjective Progress Note Date: 09/19/22 This is a 67-year-old female patient with a known history of obesity, obstructive sleep apnea not using her CPAP, anemia, anxiety, asthma, diabetes mellitus, hyperlipidemia, hypothyroidism, lifelong nonsmoker. She presented here to the emergency room on 09/16/2022 with complaints of chest pain that had been waxing and waning for 4 days prior. Echocardiogram revealed preserved left ventricular systolic function with ejection fraction 55-60%. Cannot exclude a PFO with pjzw-ek-srrka shunting. Dobutamine stress echo revealed no evidence of myocardial ischemia. White count 7.7. Hemoglobin 11.8. Platelets 272. Sodium 137. Potassium 4.3. Bicarb 24. BUN 16. Creatinine 0.95. Glucose 105. Earlier today the patient was up with assistance and became confused and weak and developed a left-sided facial drooping and a code stroke was called. Computed tomography scan of brain revealed no acute intracranial abnormality. CT angiogram revealed a possibly 50% stenosis of the bilateral carotid bifurcation. No evidence of dissection. No evidence of intracranial high-grade stenosis or intracranial aneurysm. She did receive TPA approximately 1:20 PM this afternoon. She is seen in consultation in the intensive care unit. She continues with a left-sided facial droop. All 4 extremities are weak. Pupils are equal and reactive. She is alert. Answering questions. She is complaining of a headache. The patient is seen today 09/19/2022 in follow-up in the intensive care unit. She is currently awake, alert and oriented 3, maintaining O2 saturations in the 90s on room air. No IV fluids. She does have ongoing issues with weakness in her legs. She is maintaining sinus rhythm. Follow-up computed tomography scan of the brain revealed no acute intracranial process. She is due for an MRI of brain and EEG today. She remains on aspirin, statins. White count 7.2. Hemoglobin 11.4. Sodium 139. Potassium 3.7. Bicarb 24. BUN 12. Creatinine 0.84. Glucose 131. Objective - Vital Signs Vital signs: Vital Signs Temp 97.6 F 09/19/22 04:00 Pulse 57 L 09/19/22 07:00 Resp 16 09/19/22 07:00 BP 104/52 09/19/22 07:00 Pulse Ox 94 L 09/19/22 07:00 FiO2 Intake & Output 09/18/22 09/19/22 09/19/22 18:59 06:59 18:59 Intake Total 281 Output Total 900 840 70 Balance -619 -840 -70 Weight 137.6 kg Intake: Intake, IV Titration 81 Amount Alteplase 81 mg In Empty 81 Bag 1 bag @ 81 mls/hr IV ONCE STA Rx#:[id number] Oral 200 Output: Urine 900 840 70 Other: Voiding Method Indwelling Catheter Indwelling Catheter - Exam GENERAL EXAM: Alert, active, 67-year-old female, on room air, comfortable in no apparent distress. HEAD: Normocephalic. Less of a left-sided facial droop today EYES: Normal reaction of pupils, equal size. NOSE: Clear with pink turbinates. THROAT: No erythema or exudates. NECK: No masses, no JVD. CHEST: No chest wall deformity. LUNGS: Equal air entry with no crackles, wheeze, rhonchi or dullness. CVS: S1 and S2 normal with no audible murmur, regular rhythm. ABDOMEN: No hepatosplenomegaly, normal bowel sounds, no guarding or rigidity. SPINE: No scoliosis or deformity SKIN: No rashes CENTRAL NERVOUS SYSTEM: No focal deficits, tone is normal in all 4 extremities. Weakness in the bilateral lower extremities. EXTREMITIES: There is no peripheral edema. No clubbing, no cyanosis. Peripheral pulses are intact. - Labs CBC & Chem 7: 09/19/22 05:58 09/19/22 05:58 Labs: Abnormal Lab Results - Last 24 Hours (Table) 09/18/22 09/18/22 09/18/22 Range/Units 06:39 06:39 11:22 WBC 10.25 H (4.50-10.00) X 10*3/uL MCH 26.5 L (27.0-32.0) pg MCHC 30.8 L (32.0-37.0) d/dL Microcytosis (manual) 2+ A Elliptocytes 2+ A Chloride (98-107) mmol/L Anion Gap 13.40 H (4.00-12.00) mmol/L Est GFR (CKD-EPI) 56 L (>=60) Glucose 125 H (70-110) mg/dL POC Glucose (mg/dL) 120 H (70-110) mg/dL Hemoglobin A1c (<=6.0) % 07/26/23 07/26/23 07/27/23 Range/Units 12:24 19:54 05:58 WBC (4.50-10.00) X 10*3/uL MCH (27.0-32.0) pg MCHC (32.0-37.0) d/dL Microcytosis (manual) Elliptocytes Chloride (98-107) mmol/L Anion Gap (4.00-12.00) mmol/L Est GFR (CKD-EPI) (>=60) Glucose 105 H (70-110) mg/dL POC Glucose (mg/dL) 117 H (70-110) mg/dL Hemoglobin A1c 6.2 H (<=6.0) % 09/19/22 Range/Units 05:58 WBC (4.50-10.00) X 10*3/uL MCH (27.0-32.0) pg MCHC (32.0-37.0) d/dL Microcytosis (manual) Elliptocytes Chloride 108 H (98-107) mmol/L Anion Gap (4.00-12.00) mmol/L Est GFR (CKD-EPI) (>=60) Glucose (70-110) mg/dL POC Glucose (mg/dL) (70-110) mg/dL Hemoglobin A1c (<=6.0) % Assessment and Plan Assessment: Acute CVA with left-sided facial droop and generalized weakness, status post TPA 09/18/2022. CT scans of the brain revealed no acute intracranial process. Atypical chest pain, dobutamine stress echo revealed no evidence of ischemia Morbid obesity with a BMI of 60.5 kg per metered square History of obstructive sleep apnea not utilizing CPAP in the outpatient setting Hypertension Hyperlipidemia Diabetes mellitus History of anxiety/depression Plan: The patient was seen and evaluated CT brain, labs and medications reviewed Plan is for MRI of the brain, EEG today Stable and on room air Transfer to the regular medical floor today We will continue to follow I have personally seen and examined the patient, performed the documentation and the assessment and plan as written. Number of minutes spent on the visit: 10.
[2022-09-19 12:03] LABS: Glucose,Whole Blood 111 mg/dL (70-110)
--- NOTE | 2022-09-19 12:03 | EEG ---
ELECTROENCEPHALOGRAM REPORT PREAMBLE: This is a 67-year-old female, who has episodes of altered mental status, possible stroke yesterday. This study is performed to rule out any underlying epileptiform activity. EEG FINDINGS: This is a 21-channel digital EEG recorded with video component, utilizing 10/20 international system with referential and bipolar montages. Background consists of well-developed, well-regulated moderate voltage activity in 10-11 hertz alpha. Background is posterior dominant and reactive to eye opening and closing. Photic driving response was seen with some flash frequencies. Drowsiness was seen with appearance of bilaterally symmetric theta frequency rhythm. Deeper stages of sleep were not seen. No focal or generalized epileptiform activity was seen. IMPRESSION: This is a normal awake and drowsy EEG. No focal, lateralized or epileptiform activity was seen. MMODL / IJN: [id number] /
[2022-09-19 12:16] LABS: Chol/HDL Ratio 2.37 Ratio; LDL Cholesterol,Calculated 28.4 mg/dL (0.0-131.0)
--- NOTE | 2022-09-19 13:20 | MR ---
EXAMINATION TYPE: MR brain wo con DATE OF EXAM: 09/19/2022 10:55 AM COMPARISON: CT 09/18/2022.. CLINICAL INDICATION:Female, 67 years old with history of CVA; PHH, Neuro deficit, evaluate for CVA. TECHNIQUE: Multi planar, multi sequence imaging was performed through the brain including: T1, T2, In version recovery, Diffusion weighted imaging, and gradient echo imaging. No gadolinium was given. FINDINGS: The sanderson-white junctions, ventricular system, and cisterns appear unremarkable. Scattered foci of hi gh T2 signal intensity are seen within the periventricular white matter. Midline structures show no a bnormality. Diffusion-weighted imaging shows no evidence of restricted diffusion. The susceptibility weighted images do not reveal any evidence for micro-hemorrhage. The bone marrow signal is within normal limits. Paranasal sinuses and mastoid air cells: No significant paranasal sinus disease. Visualized orbits: Bilaterally aphakia. IMPRESSION: 1. No evidence of intracranial mass or acute/subacute infarct. 2. Nonspecific white matter changes, likely secondary to small vessel ischemic disease.
--- NOTE | 2022-09-19 13:43 | PN ---
PROGRESS NOTE SUBJECTIVE: This lady at about 1 p.m. in the afternoon yesterday had an episode of what was described as a probable stroke, was seen by Neurology, also seen by interventional neurologist, and a decision was made to give her tPA. This morning, she complains of feeling lethargic, resting comfortably, unable to move her lower extremities. I think there is a functional component as well, but the patient was able to shake my hand and squeezed by my hand with upper extremities, but not able to move lower extremities. I am not sure where her neurological deficit clearly is. I will leave this up to Neurology. She came in with atypical chest pain and had a normal dobutamine echocardiogram. Blood pressure control is good. OBJECTIVE: VITAL SIGNS: Stable. NECK: No JVD. HEART: S1 and S2 heard normally. LUNGS: Clear. ABDOMEN: Soft and nontender. EXTREMITIES: Lower extremities reveal palpable pulses. CENTRAL NERVOUS SYSTEM: Assessment reveals that the patient has been able to move upper extremities, but does not want to move lower extremities. She does not seem to be focused and not following instruction 100%. I will await further input from Neurology. MMODL / IJN: [id number] /
[2022-09-19 16:31] LABS: Glucose,Whole Blood 184 mg/dL (70-110)
--- NOTE | 2022-09-19 17:04 | P.PN ---
Subjective Progress Note Date: 09/19/22 This is a 67 year old female with medical history of asthma, sleep apnea with CPAP use, hyperlipidemia, hypertension, diabetes mellitus, thyroid disorder anxiety depression. Patient came in for complaints of week long history of weakness and fatigue as well as chest pain in the mid sternum radiating to the left arm and jaw which has been ongoing for the last few days. Patient waited it out at home and pain was not improving, also reports associated dizziness, lightheadedness and diaphoresis. Patient denies any fever or chills, no cough. Does have a history of cardiac catheterization with no prior stenting reported. Has strong family history of coronary artery disease, all 5 of her brothers have underwent coronary bypass. Work up reveals normal hemoglobin 12.0, white count normal. D-Dimer is normal at 0.29, normal kidney function, troponin level negative x 3 and proBNP level of 20. Urinalysis is negative. TSH is normal at 1.130. Patient will be admitted in observation and cardiology has been c onsulted. 09/18/2022 Patient is evaluated today sitting up on edge of bed continues to report fatigue and weakness. 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 Patient underwent dobutamine stress echo which was negative, echocardiogram reveals an EF 55-60% and cannot exclude a PFO with left to right shunting. Cardiology has cleared the patient to follow up in the office. Recommending to check ABGs and patient will be started on inhaled steroids. Patient does feel like she may have "long covid" does not feel fully recovered since having covid 1 year ago. 09/19/2022 Patient is evaluated in intensive care unit. Yesterday lunchtime after walking back to the bathroom patient had an episode of staring off into space and noted to have a left facial droop and also some left-sided weakness. Patient also has bilateral lower extremity weakness. A code stroke was called and patient had brain CT which was negative. Patient had a brain CTA done showing approximately 50% stenosis of the bilateral carotid bifurcation secondary to calcified plaque. No evidence of dissecation of the cervical internal carotid arteries or vertebral arteries. No evidence of intracranial high grade stenosis of intracranial aneurysm. 24 hour f/u brain CT after TPA is negative. Patient had EEG done today which is negative for seizure activity. Brain MRI shows no evidence of intracranial mass or acute/subacute infarct. There is nonspecific white matter changes likely secondary to small vessel ischemic disease. Lab from today is essentially unremarkable with mildly elevated chloride at 108. Hgb A1C 6.2. Patient now reports migraine and fioricet has been added. Review of Systems Constitutional: Reports fatigue denied any fever. Cardio vascular: denied any chest pain, palpitations Gastrointestinal: denied any nausea, vomiting, diarrhea Pulmonary: Reports shortness of breath, no cough Neurologic: Reports bilateral lower extremity weakness, left upper extremity hand grasp weak and left facial droop. All inpatient medications were reviewed and appropriate changes in these medications as dictated in the interval history and assessment and plan. PHYSICAL EXAMINATION: GENERAL: The patient is alert and oriented x3, not in any acute distress. Well developed, well nourished. Obesity HEENT: Pupils are round and equally reacting to light. EOMI. No scleral icterus. No conjunctival pallor. Normocephalic, atraumatic. No pharyngeal erythema. No thyromegaly. CARDIOVASCULAR: S1 and S2 present. No murmurs, rubs, or gallops. PULMONARY: Chest is clear to auscultation, no wheezing or crackles. ABDOMEN: Soft, nontender, nondistended, normoactive bowel sounds. No palpable organomegaly. MUSCULOSKELETAL: No joint swelling or deformity. EXTREMITIES: No cyanosis, clubbing, or pedal edema. NEUROLOGICAL: Left hand grasp weak bilateral lower extremity weakness. and Left facial droop no swallowing difficulties. SKIN: No rashes. Assessment Acute altered mental status rule out acute CVA with left facial droop and bilateral lower extremity weakness. Brain CT/MRI negative for acute stroke. EEG negative for seizure like activity. Chest pain and fatigue, acute coronary syndrome ruled out Possible transient atrial fibrillation Sinus bradycardia Thyroid disorder normal TSH Hx hypertension Hx hyperlipidemia Diabetes Mellitus type 2 Sleep apnea with CPAP use Anxiety/Depression Hx of left sided Kelly's Palsy Hx Borderline personality disorder Morbid Obesity with BMI 60.5. GI prophylaxis DVT prophylaxis Full Code Plan Cardiology reconsulted possible transient a.fib Patient scheduled to undergo MRI of the cervical lumbar and thoracic spine Continue ICU monitoring DVT prophylaxis started as patient is 24 hours post TPA Continue aspirin and high intensity statin PT/OT and speech therapy on consultation Nephrology following closely. The impression and plan of care has been dictated by Ashley Kendrick, Nurse Practitioner as directed. Dr. Fatmata MD I have performed a history and physical examination and medical decision making of this patient, discussed the same with the dictator, and agree with the dictators assessment and plan as written, documented as a scribe. Based on total visit time, I have performed more than 50% of this visit. Objective - Vital Signs Vital signs: Vital Signs Temp 98.2 F 09/19/22 12:00 Pulse 60 09/19/22 12:00 Resp 18 09/19/22 12:00 BP 112/71 09/19/22 12:00 Pulse Ox 94 L 09/19/22 12:00 FiO2 Intake & Output 09/18/22 09/19/22 09/19/22 18:59 06:59 18:59 Intake Total 281 100 Output Total 900 840 195 Balance -619 -840 -95 Weight 137.6 kg Intake: Intake, IV Titration 81 100 Amount Alteplase 81 mg In Empty 81 Bag 1 bag @ 81 mls/hr IV ONCE STA Rx#:[id number] Magnesium Sulfate-D5w Pmx 100 1 gm In Dextrose/Water 1 100ml.bag @ 100 mls/hr IVPB Q1H [facility] Rx#: [id number] Oral 200 Output: Urine 900 840 195 Other: Voiding Method Indwelling Catheter Indwelling Catheter Indwelling Catheter # Bowel Movements 1 - Labs CBC & Chem 7: 09/19/22 05:58 09/19/22 05:58 Labs: Abnormal Lab Results - Last 24 Hours (Table) 09/18/22 09/19/22 09/19/22 Range/Units 19:54 05:58 05:58 Chloride 108 H (98-107) mmol/L POC Glucose (mg/dL) 117 H (70-110) mg/dL Hemoglobin A1c 6.2 H (<=6.0) % HDL Cholesterol 38.00 L (40.00-60.00) mg/dL 09/19/22 Range/Units 12:01 Chloride (98-107) mmol/L POC Glucose (mg/dL) 111 H (70-110) mg/dL Hemoglobin A1c (<=6.0) % HDL Cholesterol (40.00-60.00) mg/dL Assessment and Plan Time with Patient: Less than 30
[2022-09-19] MEDS: CYANOCOBALAMIN 1,000 MCG/ML 1 ML VIAL IM SCH (17:56)
[2022-09-19] MEDS: HEPARIN SODIUM,PORCINE/PF 5,000 UNIT/0.5 ML SYRINGE SQ SCH ×2 (17:56→23:03)
[2022-09-19 20:15] LABS: Glucose,Whole Blood 97 mg/dL (70-110)
[2022-09-19] MEDS: LITHIUM CARBONATE 300 MG CAP PO SCH (20:36)
[2022-09-19] MEDS: ATORVASTATIN 80 MG TAB PO SCH (20:36)
[2022-09-19] MEDS: lamoTRIgine 100 MG TAB PO SCH (20:37)
[2022-09-19] MEDS: MELATONIN 5 MG TABLET PO SCH (20:37)
[2022-09-20 04:55] LABS: African American GFR (CKD) 80 (>60 ml/min/1.73 sqM); Anion Gap 8 mmol/L; Blood Urea Nitrogen 13 mg/dL (7-17); Calcium 8.7 mg/dL (8.4-10.2); Carbon Dioxide 23 mmol/L (22-30); Chloride 107 mmol/L (98-107); Glucose 131 mg/dL (74-99); Non-African American GFR(CKD) 70 (>60 ml/min/1.73 sqM); Potassium 3.9 mmol/L (3.5-5.1); Sodium 138 mmol/L (137-145)
[2022-09-20] MEDS ORDERED: Potassium Replacement Protocol 1 EACH MISC MISCELLANE PRN (05:15)
[2022-09-20 05:30] LABS: Basophils # (A) 0.1 k/uL (0-0.2); Basophils % (A) 1 %; Eosinophils # (A) 0.2 k/uL (0-0.7); Eosinophils % (A) 3 %; HGB 11.5 gm/dL (11.4-16.0); Lymphocytes # (A) 1.9 k/uL (1.0-4.8); Lymphocytes % (A) 26 %; MCH 27.7 pg (25.0-35.0); MCHC 32.9 g/dL (31.0-37.0); Mean Platelet Volume 9.8; Monocytes # (A) 0.5 k/uL (0-1.0); Monocytes % (A) 6 %; Neutrophils # (A) 4.6 k/uL (1.3-7.7); Neutrophils % (A) 63 %; Platelet Count 249 k/uL (150-450); RBC 4.17 m/uL (3.80-5.40); RDW 13.6 % (11.5-15.5); WBC 7.4 k/uL (3.8-10.6)
[2022-09-20] MEDS ORDERED: POTASSIUM CHLORIDE ER 20 MEQ TAB.ER PO SCH (06:00)
[2022-09-20] MEDS: PANTOPRAZOLE 40 MG TABLET PO SCH (06:30)
[2022-09-20] MEDS: LEVOTHYROXINE 75 MCG TAB PO SCH (06:30)
[2022-09-20 06:31] LABS: Glucose,Whole Blood 129 mg/dL (70-110)
[2022-09-20] MEDS: INSULIN ASPART (NovoLOG) 100 UNIT/ML VIAL SQ SCH ×4 (06:31→21:01)
[2022-09-20] MEDS: NYSTATIN 100,000 UNIT/GM POWD 15 GM TOPICAL SCH ×3 (09:03→21:44)
[2022-09-20] MEDS: HEPARIN SODIUM,PORCINE/PF 5,000 UNIT/0.5 ML SYRINGE SQ SCH ×2 (09:03→17:19)
[2022-09-20] MEDS: ASPIRIN 81 MG PO SCH (09:03)
[2022-09-20] MEDS: CYANOCOBALAMIN 1,000 MCG/ML 1 ML VIAL IM SCH (09:03)
--- NOTE | 2022-09-20 09:38 | P.PN ---
Subjective Progress Note Date: 09/19/22 Patient was seen for a follow-up. Patient is doing much better. Patient is fully alert and awake, fully oriented. Patient says that she just remembers people talking to her, hearing and remembers some shaking. She felt will pass out, couldn't move her eyes. She felt "out of it". At present patient states that she feels numbness and tingling and tightness in the feet. Patient does have history of diabetic peripheral neuropathy with numbness and tingling in the socks and glove distribution for last 1 year. However since yesterday, this has progressed significantly. The numbness has extended up to the knees whereas the feet are more intensely numb. She feels tightness around her ankles. Patient states that she was able to walk and would do stuff at home, but now she cannot move her legs. Even while she was admitted before stroke code, she was able to walk to the bathroom. Objective - Vital Signs Vital signs: Vital Signs Temp 98.2 F 09/19/22 16:00 Pulse 59 L 09/19/22 16:00 Resp 16 09/19/22 16:00 BP 118/68 09/19/22 16:00 Pulse Ox 94 L 09/19/22 16:00 FiO2 Intake & Output 09/18/22 09/19/22 09/19/22 18:59 06:59 18:59 Intake Total 281 100 Output Total 900 840 195 Balance -619 -840 -95 Weight 137.6 kg Intake: Intake, IV Titration 81 100 Amount Alteplase 81 mg In Empty 81 Bag 1 bag @ 81 mls/hr IV ONCE STA Rx#:[id number] Magnesium Sulfate-D5w Pmx 100 1 gm In Dextrose/Water 1 100ml.bag @ 100 mls/hr IVPB Q1H [facility] Rx#: [id number] Oral 200 Output: Urine 900 840 195 Other: Voiding Method Indwelling Catheter Indwelling Catheter Indwelling Catheter # Bowel Movements 1 - Exam Patient's mental status, speech and language functions are normal. Cranial nerves are normal. Muscle strength is symmetric bilaterally. Deltoid 4+5-, b iceps 4+, triceps 4, printed circuit board panels trimmer 4-, patient cannot move her hips knees or ankles. It appears paraplegic. Reflexes are 2+3 in bilateral upper limbs. Ankles 2+ and plantars are flat bilaterally. Patient's sensory examination was somewhat atypical, as she was feeling numb from legs all the way up through the trunk even through the neck. Even face felt numb. Could not assess any obvious sensory level although it does appear that she has numbness distally in the legs and somewhat also in the trunk. - Labs CBC & Chem 7: 09/20/22 04:17 09/20/22 04:17 Labs: Abnormal Lab Results - Last 24 Hours (Table) 09/18/22 09/19/22 09/19/22 Range/Units 19:54 05:58 05:58 Chloride 108 H (98-107) mmol/L POC Glucose (mg/dL) 117 H (70-110) mg/dL Hemoglobin A1c 6.2 H (<=6.0) % HDL Cholesterol 38.00 L (40.00-60.00) mg/dL 09/19/22 09/19/22 Range/Units 12:01 16:29 Chloride (98-107) mmol/L POC Glucose (mg/dL) 111 H 184 H (70-110) mg/dL Hemoglobin A1c (<=6.0) % HDL Cholesterol (40.00-60.00) mg/dL Assessment and Plan Assessment: * Acute altered mental status, with focal findings. Acute CVA ruled out. Mental status has returned back to normal. * New onset paraparesis, unclear cause. Rule out transverse myelitis, rule out spinal cord compression from spinal stenosis. Rule out spinal cord infarction. * Cephalalgia, unclear cause. * Reported possible transient atrial fibrillation. * Diabetes * Hypertension * Sleep apnea * Borderline personality disorder, anxiety depression, currently on lithium and Lamictal * History of Kelly's palsy affecting left side of the face. Plan: * Patient's mentation, cranial nerves are normal. Patient appears to have symmetric mild to moderate weakness of bilateral upper limbs, and new onset paraplegia of unclear cause. Rule out transverse myelitis, spinal cord compression from spinal stenosis or spinal cord infarction. * Stat MRI of the cervical, thoracic and lumbar spine with and without contrast. * MRI of the brain without contrast, revealed no evidence of intracranial mass or acute/subacute infarct. Nonspecific white matter changes, likely secondary to small vessel ischemic disease. I personally reviewed MRI, I agree with the findings. * EEG was normal awake and drowsy. No focal, lateralized or epileptiform activity was seen. * Continue aspirin 81 mg daily and Lipitor 80 mg. * 2-D echo revealed normal left-ventricular size and systolic function, with EF estimated at 55-60%. Normal left ventricular wall motion. Mild MR with trace tricuspid regurgitation. Cannot exclude a PFO with [id number] shunting. Left atrium moderately dilated. * Patient may need GRAHAM for the further evaluation of a PFO and embolic source. Patient also has a possible ?transient run of atrial fibrillation during stroke symptoms noted by the nurse on rug setter [place] while patient was in the CT department. Cardiology input appreciated. * CTA head and neck showed: Approximately 50% stenosis of the bilateral carotid bifurcations secondary to calcified plaque. No evidence of dissection of the cervical internal carotid arteries or vertebral arteries. No evidence of intracranial high-grade stenosis or intracranial aneurysm. * Fasting a.m. lipid panel from 06/27/2022 showed cholesterol 139, LDL 48.7, HDL 48 and triglycerides 211. Patient takes Lipitor 80 mg daily. * Hemoglobin A1c 6.2 * B12 355, folate 17.6. B12 is borderline, we will start replacement. * Telemetry monitoring rule out any arrhythmia * DVT prophylaxis: Heparin 5000 units subcu every 8 hours.
--- NOTE | 2022-09-20 10:18 | P.PN ---
Subjective Progress Note Date: 09/20/22 This is a 67-year-old female patient with a known history of obesity, obstructive sleep apnea not using her CPAP, anemia, anxiety, asthma, diabetes mellitus, hyperlipidemia, hypothyroidism, lifelong nonsmoker. She presented here to the emergency room on 09/16/2022 with complaints of chest pain that had been waxing and waning for 4 days prior. Echocardiogram revealed preserved left ventricular systolic function with ejection fraction 55-60%. Cannot exclude a PFO with [id number] shunting. Dobutamine stress echo revealed no evidence of myocardial ischemia. White count 7.7. Hemoglobin 11.8. Platelets 272. Sodium 137. Potassium 4.3. Bicarb 24. BUN 16. Creatinine 0.95. Glucose 105. Earlier today the patient was up with assistance and became confused and weak and developed a left-sided facial drooping and a code stroke was called. Computed tomography scan of brain revealed no acute intracranial abnormality. CT angiogram revealed a possibly 50% stenosis of the bilateral carotid bifurcation. No evidence of dissection. No evidence of intracranial high-grade stenosis or intracranial aneurysm. She did receive TPA approximately 1:20 PM this afternoon. She is seen in consultation in the intensive care unit. She continues with a left-sided facial droop. All 4 extremities are weak. Pupils are equal and reactive. She is alert. Answering questions. She is complaining of a headache. The patient is seen today 09/19/2022 in follow-up in the intensive care unit. She is currently awake, alert and oriented 3, maintaining O2 saturations in the 90s on room air. No IV fluids. She does have ongoing issues with weakness in her legs. She is maintaining sinus rhythm. Follow-up computed tomography scan of the brain revealed no acute intracranial process. She is due for an MRI of brain and EEG today. She remains on aspirin, statins. White count 7.2. Hemoglobin 11.4. Sodium 139. Potassium 3.7. Bicarb 24. BUN 12. Creatinine 0.84. Glucose 131. The patient is seen today 09/20/2022 in follow-up in the intensive care unit. She is currently resting comfortably in bed. Awake and alert in no acute distress. Maintaining good O2 saturations in the 90s on room air. She is having ongoing issues with significant lower extremity weakness. The plan is for an MRI of the spine today. She is continued on heparin for DVT prophylaxis. MRI of the brain revealed no evidence of intracranial mass or acute/subacute infarct. EEG was normal with no focal, lateralizing or epileptiform activity. White count 7.4. Hemoglobin 11.5. Platelets 249. Sodium 138. Potassium 3.9. Bicarb 23. BUN 13. Creatinine 0.88. Glucose 131. Objective - Vital Signs Vital signs: Vital Signs Temp 98.8 F 09/20/22 08:00 Pulse 58 L 09/20/22 08:00 Resp 16 09/20/22 08:00 BP 135/74 09/20/22 08:00 Pulse Ox 96 09/20/22 08:00 FiO2 Intake & Output 09/19/22 09/20/22 09/20/22 18:59 06:59 18:59 Intake Total 200 Output Total 195 875 Balance 5 -875 Weight 136.8 kg Intake: Intake, IV Titration 200 Amount Magnesium Sulfate-D5w Pmx 200 1 gm In Dextrose/Water 1 100ml.bag @ 100 mls/hr IVPB Q1H [facility] Rx#: [id number] Output: Urine 195 875 Other: Voiding Method Indwelling Catheter Indwelling Catheter Indwelling Catheter # Bowel Movements 1 1 1 - Exam GENERAL EXAM: Alert, pleasant, obese 67-year-old female, on room air, comfortable in no apparent distress. HEAD: Normocephalic. Less of a left-sided facial droop today EYES: Normal reaction of pupils, equal size. NOSE: Clear with pink turbinates. THROAT: No erythema or exudates. NECK: No masses, no JVD. CHEST: No chest wall deformity. LUNGS: Equal air entry with no crackles, wheeze, rhonchi or dullness. CVS: S1 and S2 normal with no audible murmur, regular rhythm. ABDOMEN: No hepatosplenomegaly, normal bowel sounds, no guarding or rigidity. SPINE: No scoliosis or deformity SKIN: No rashes CENTRAL NERVOUS SYSTEM: No focal deficits, tone is normal in all 4 extremities. Weakness in the bilateral lower extremities. EXTREMITIES: There is no peripheral edema. No clubbing, no cyanosis. Peripheral pulses are intact. - Labs CBC & Chem 7: 09/20/22 04:17 09/20/22 04:17 Labs: Abnormal Lab Results - Last 24 Hours (Table) 09/19/22 09/19/22 09/19/22 Range/Units 05:58 12:01 16:29 Glucose (74-99) mg/dL POC Glucose (mg/dL) 111 H 184 H (70-110) mg/dL HDL Cholesterol 38.00 L (40.00-60.00) mg/dL 09/20/22 09/20/22 Range/Units 04:17 06:29 Glucose 131 H (74-99) mg/dL POC Glucose (mg/dL) 129 H (70-110) mg/dL HDL Cholesterol (40.00-60.00) mg/dL Assessment and Plan Assessment: Acute CVA with left-sided facial droop and generalized weakness, status post TPA 09/18/2022. CT scans of the brain and MRI of the brain revealed no acute intracranial process. Atypical chest pain, dobutamine stress echo revealed no evidence of ischemia Morbid obesity with a BMI of 60.5 kg per metered square History of obstructive sleep apnea not utilizing CPAP in the outpatient setting Hypertension Hyperlipidemia Diabetes mellitus History of anxiety/depression Plan: The patient was seen and evaluated MRI of the brain, EEG, labs and medications reviewed Plan is for MRI of the spine today Stable and on room air Remains a regular medical floor overflow We will continue to follow I have personally seen and examined the patient, performed the documentation and the assessment and plan as written. Number of minutes spent on the visit: 10.
[2022-09-20] MEDS ORDERED: LORazepam 1 MG TAB PO STA (10:55)
[2022-09-20 11:56] LABS: Glucose,Whole Blood 139 mg/dL (70-110)
--- NOTE | 2022-09-20 12:30 | P.PN ---
Subjective Progress Note Date: 09/20/22 This is a 67 year old female with medical history of asthma, sleep apnea with CPAP use, hyperlipidemia, hypertension, diabetes mellitus, thyroid disorder anxiety depression. Patient came in for complaints of week long history of weakness and fatigue as well as chest pain in the mid sternum radiating to the left arm and jaw which has been ongoing for the last few days. Patient waited it out at home and pain was not improving, also reports associated dizziness, lightheadedness and diaphoresis. Patient denies any fever or chills, no cough. Does have a history of cardiac catheterization with no prior stenting reported. Has strong family history of coronary artery disease, all 5 of her brothers have underwent coronary bypass. Work up reveals normal hemoglobin 12.0, white count normal. D-Dimer is normal at 0.29, normal kidney function, troponin level negative x 3 and proBNP level of 20. Urinalysis is negative. TSH is normal at 1.130. Patient will be admitted in observation and cardiology has been c onsulted. 09/18/2022 Patient is evaluated today sitting up on edge of bed continues to report fatigue and weakness. Patient does report partial compliance with CPAP machine not following up with a associate manager. Patient underwent dobutamine stress echo which was negative, echocardiogram reveals an EF 55-60% and cannot exclude a PFO with left to right shunting. Cardiology has cleared the patient to follow up in the office. Recommending to check ABGs and patient will be started on inhaled steroids. Patient does feel like she may have "long covid" does not feel fully recovered since having covid 1 year ago. 09/19/2022 Patient is evaluated in intensive care unit. Yesterday lunchtime after walking back to the bathroom patient had an episode of staring off into space and noted to have a left facial droop and also some left-sided weakness. Patient also has bilateral lower extremity weakness. A code stroke was called and patient had brain CT which was negative. Patient had a brain CTA done showing approximately 50% stenosis of the bilateral carotid bifurcation secondary to calcified plaque. No evidence of dissecation of the cervical internal carotid arteries or vertebral arteries. No evidence of intracranial high grade stenosis of intracranial aneurysm. 24 hour f/u brain CT after TPA is negative. Patient had EEG done today which is negative for seizure activity. Brain MRI shows no evidence of intracranial mass or acute/subacute infarct. There is nonspecific white matter changes likely secondary to small vessel ischemic disease. Lab from today is essentially unremarkable with mildly elevated chloride at 108. Hgb A1C 6.2. Patient now reports migraine and fioricet has been added. 09/20/2022 Patient is evaluated today in intensive care unit. Patient has improvement in her left facial droop, patients tongue is protruding to midline. She does continue to have some left upper extremity weakness and also bilateral lower extremity weakness and numbness. Patient is scheduled to undergo MRI of the cervical thoracic and lumbar spine today. Laboratory data is unremarkable, blood glucose in the 120s to 130s. Magnesium has improved up to 2.0. Heart rate in the 50s sinus bradycardia, blood pressure stable 135/74, patient is on room air and afebrile. Review of Systems Constitutional: Reports fatigue denied any fever. Cardio vascular: denied any chest pain, palpitations Gastrointestinal: denied any nausea, vomiting, diarrhea Pulmonary: Reports shortness of breath, no cough Neurologic: Reports bilateral lower extremity weakness/numbness, left upper extremity hand grasp weak and left facial droop which is improving. All inpatient medications were reviewed and appropriate changes in these medications as dictated in the interval history and assessment and plan. PHYSICAL EXAMINATION: GENERAL: The patient is alert and oriented x3, not in any acute distress. Well developed, well nourished. Obesity HEENT: Pupils are round and equally reacting to light. EOMI. No scleral icterus. No conjunctival pallor. Normocephalic, atraumatic. No pharyngeal erythema. No thyromegaly. CARDIOVASCULAR: S1 and S2 present. No murmurs, rubs, or gallops. PULMONARY: Chest is clear to auscultation, no wheezing or crackles. ABDOMEN: Soft, nontender, nondistended, normoactive bowel sounds. No palpable organomegaly. MUSCULOSKELETAL: No joint swelling or deformity. EXTREMITIES: No cyanosis, clubbing, or pedal edema. NEUROLOGICAL: Left hand grasp weak bilateral lower extremity weakness. and Left facial droop improving tongue is now protruding to baseline, no swallowing d ifficulties. SKIN: No rashes. Assessment Acute altered mental status rule out acute CVA with left facial droop and bilateral lower extremity weakness. Brain CT/MRI negative for acute stroke. EEG negative for seizure like activity. Chest pain and fatigue, acute coronary syndrome ruled out Possible transient atrial fibrillation Sinus bradycardia Thyroid disorder normal TSH Hx hypertension Hx hyperlipidemia Diabetes Mellitus type 2 Sleep apnea with CPAP use Anxiety/Depression Hx of left sided Kelly's Palsy Hx Borderline personality disorder Morbid Obesity with BMI 60.5. GI prophylaxis DVT prophylaxis Full Code Plan Cardiology reconsulted possible transient a.fib Patient scheduled to undergo MRI of the cervical lumbar and thoracic spine Continue ICU monitoring DVT prophylaxis started as patient is 24 hours post TPA Continue aspirin and high intensity statin PT/OT and speech therapy on consultation Nephrology following closely. The impression and plan of care has been dictated by Ashley Kendrick, Nurse Practitioner as directed. Dr. Fatmata MD I have performed a history and physical examination and medical decision making of this patient, discussed the same with the dictator, and agree with the dictators assessment and plan as written, documented as a scribe. Based on total visit time, I have performed more than 50% of this visit. Objective - Vital Signs Vital signs: Vital Signs Temp 98.8 F 09/20/22 08:00 Pulse 58 L 09/20/22 08:00 Resp 16 09/20/22 08:00 BP 135/74 09/20/22 08:00 Pulse Ox 96 09/20/22 08:00 FiO2 Intake & Output 09/19/22 09/20/22 09/20/22 18:59 06:59 18:59 Intake Total 200 Output Total 195 875 Balance 5 -875 Weight 136.8 kg Intake: Intake, IV Titration 200 Amount Magnesium Sulfate-D5w Pmx 200 1 gm In Dextrose/Water 1 100ml.bag @ 100 mls/hr IVPB Q1H [facility] Rx#: [id number] Output: Urine 195 875 Other: Voiding Method Indwelling Catheter Indwelling Catheter Indwelling Catheter # Bowel Movements 1 1 1 - Labs CBC & Chem 7: 09/20/22 04:17 09/20/22 04:17 Labs: Abnormal Lab Results - Last 24 Hours (Table) 09/19/22 09/20/22 09/20/22 Range/Units 16:29 04:17 06:29 Glucose 131 H (74-99) mg/dL POC Glucose (mg/dL) 184 H 129 H (70-110) mg/dL 09/20/22 Range/Units 11:55 Glucose (74-99) mg/dL POC Glucose (mg/dL) 139 H (70-110) mg/dL Assessment and Plan Time with Patient: Less than 30
--- NOTE | 2022-09-20 14:25 | MR ---
EXAMINATION TYPE: MR hsira/henny wo/w con DATE OF EXAM: 09/20/2022 1:47 PM COMPARISON: NONE HISTORY: New paraplegia, evaluate for transverse myelitis/stenosis. CONTRAST: The patient was injected with 13 mL intravenous Gadavist gadolinium contrast. Multiplanar MultiSpin echo imaging of the cervical spine was performed. C2-C3: No evidence for degenerative disc disease. No disc bulge/herniation or protrusion. No Canal stenosis. Foramina are patent bilaterally. C3-C4: There is mild disc desiccation with posterior disc bulge. Mild effacement ventral thecal sac. No evidence for vicky herniation or central stenosis. Mild right foraminal encroachment. C4-C5: There is mild disc desiccation with posterior disc bulge. Mild effacement ventral thecal sac. No evidence for vicky herniation or central stenosis. Mild right foraminal encroachment. C5-C6: Moderate disc desiccation. Posterior disc bulge with small left paracentral disc protrusion. M ild effacement ventral thecal sac. Minimal ventral cord contact is difficult to exclude. Constriction of the thecal sac without overt stenosis. Left foraminal encroachment. C6-C7:There is mild disc desiccation with posterior disc bulge. Mild effacement ventral thecal sac. N o evidence for vicky herniation or central stenosis. Mild right foraminal encroachment. C7-T1: No evidence for degenerative disc disease. No disc bulge/herniation or protrusion. No Canal stenosis. Foramina are patent bilaterally. There are disc herniations identified on the sagittal data set at T3-4 and T4-5 with cord contact. Th e patient is scheduled for MRI of the thoracic spine. No cervical spine fracture. There is normal alignment. Cervical spinal cord is of normal signal. C raniovertebral junction relationships are within normal limits. No pathologic enhancement. IMPRESSION: 1. There are disc herniations identified on the sagittal data set at T3-4 and T4-5 with cord contact. The patient is scheduled for MRI of the thoracic spine. 2. No evidence for transverse myelitis within the cervical spine. 3. Multilevel degenerative disc disease. 4. Disc bulging and small left paracentral protrusion at C5-6 with ventral cord contact difficult to exclude. EXAMINATION TYPE: MR shira/henny wo/w con DATE OF EXAM: 09/20/2022 1:47 PM COMPARISON: NONE HISTORY: New paraplegia, evaluate for transverse myelitis/stenosis. CONTRAST: The patient was injected with 13 mL intravenous Gadavist gadolinium contrast. Multiplanar, MultiSpin echo imaging of the lumbar spine was performed. L1-L2: Mild disc desiccation with posterior disc bulge. Effacement ventral thecal sac constriction of the thecal sac noted resulting in borderline to mild central stenosis. Foramina are patent bilateral ly. L2-L3: Mild disc desiccation with posterior disc bulge. Effacement ventral thecal sac constriction of the thecal sac noted resulting in borderline to mild central stenosis. Foramina are patent bilateral ly. L3-L4: Moderate to severe disc desiccation. Circumferential disc bulge greatest posteriorly and to th e right. There is hypertrophy of the ligamentum flavum and facet joint arthropathy resulting in moder ate central stenosis. Bilateral neural foraminal encroachment seen right greater than left. L4-L5: Moderate to severe disc desiccation. Circumferential disc bulge greatest posteriorly and to th e right. There is hypertrophy of the ligamentum flavum and facet joint arthropathy resulting in moder ate central stenosis. Bilateral neural foraminal encroachment seen right greater than left. L5-S1: Severe disc desiccation noted. No herniation, protrusion or disc bulging. No canal stenosis i s present. Foramina are patent bilaterally. Lumbar segments are intact. No paraspinal masses are identified. Conus medullaris has a normal appe arance. Scattered degenerative endplate marrow change. No pathologic enhancement. IMPRESSION: 1. Degenerative disc disease with multilevel central stenosis as outlined above.
--- NOTE | 2022-09-20 14:37 | PN ---
PROGRESS NOTE SUBJECTIVE: This lady had what seemed to be a stroke-like picture yesterday. Cardiac-de la torre, she is very stable. She had a normal dobutamine echo. She is being closely followed by Neurology. She was fully awake, alert, moves her upper extremities, has difficulty and tingling and numbness in the lower extremities. She may have diabetes-related peripheral neuropathy or a lower motor neuron type issue with some spinal arthritis. Cardiac-de la torre, stable. OBJECTIVE: VITAL SIGNS: Stable. NECK: No JVD. HEART: S1 and S2 heard normally. No significant murmurs. LUNGS: Reveal decent air entry. ABDOMEN: Soft. CENTRAL NERVOUS SYSTEM: Assessment per Neurology. From a cardiac standpoint, I would not recommend any intervention. Her dobutamine echo was normal. We will continue to see her as needed, and she is going for an MRI today. MMODL / IJN: [id number] /
[2022-09-20 16:33] LABS: Glucose,Whole Blood 151 mg/dL (70-110)
[2022-09-20 20:21] LABS: Glucose,Whole Blood 148 mg/dL (70-110)
--- NOTE | 2022-09-20 20:47 | P.PN ---
Subjective Progress Note Date: 09/20/22 Patient was seen for a follow-up. Patient is doing much better. Patient is fully alert and awake, fully oriented. Patient's both sons were present today. Patient still not able to move her legs. Only can wiggle her feet and ankles just a little. At present patient states that she feels numbness and tingling and tightness in the feet. Patient does have history of diabetic peripheral neuropathy with numbness and tingling in the socks and glove distribution for last 1 year. However since yesterday, this has progressed significantly. The numbness has extended up to the knees whereas the feet are more intensely numb. She feels tightness around her ankles. Patient states that she was able to walk and would do stuff at home, but now she cannot move her legs. Even while she was admitted before stroke code, she was able to walk to the bathroom. Patient has previously seen Dr. Junior and has had undergone EMG testing of the lower extremities in the past. Objective - Vital Signs Vital signs: Vital Signs Temp 96.7 F L 09/20/22 15:41 Pulse 63 09/20/22 15:41 Resp 16 09/20/22 16:00 BP 103/56 09/20/22 15:41 Pulse Ox 95 09/20/22 15:41 FiO2 Intake & Output 09/20/22 09/20/22 09/21/22 06:59 18:59 06:59 Output Total 875 250 Balance -875 -250 Weight 136.8 kg Output: Urine 875 250 Other: Voiding Method Indwelling Catheter Indwelling Catheter # Bowel Movements 1 1 - Exam Patient's mental status, speech and language functions are normal. Cranial nerves are normal. Muscle strength is symmetric bilaterally. Deltoid 4+5-, biceps 4+, triceps 4, receiving coordinator 4-, patient cannot move her hips knees or ankles. Patient can only slightly wiggle her ankle, only trace. Reflexes are 2+3 in bilateral upper limbs. Ankles 2+ and plantars are flat bilaterally. Patient's sensory examination was somewhat atypical, as she was feeling numb from legs all the way up through the trunk even through the neck. Even face felt numb. Could not assess any obvious sensory level although it does appear that she has numbness distally in the legs and somewhat also in the trunk. - Labs CBC & Chem 7: 07/28/23 04:17 09/20/22 04:17 Labs: Abnormal Lab Results - Last 24 Hours (Table) 09/20/22 09/20/22 09/20/22 Range/Units 04:17 06:29 11:55 Glucose 131 H (74-99) mg/dL POC Glucose (mg/dL) 129 H 139 H (70-110) mg/dL 09/20/22 09/20/22 Range/Units 16:32 20:20 Glucose (74-99) mg/dL POC Glucose (mg/dL) 151 H 148 H (70-110) mg/dL Assessment and Plan Assessment: * Acute altered mental status, with focal findings. Acute CVA ruled out. Mental status has returned back to normal. * New onset paraparesis, unclear cause. Rule out transverse myelitis, rule out spinal cord compression from spinal stenosis. * Cephalalgia, unclear cause. * Reported possible transient atrial fibrillation. * Diabetes * Hypertension * Sleep apnea * Borderline personality disorder, anxiety depression, currently on lithium and Lamictal * History of Kelly's palsy affecting left side of the face. Plan: * Patient's mentation, cranial nerves are normal. Patient appears to have symmetric mild to moderate weakness of bilateral upper limbs, and new onset paraplegia of unclear cause. Rule out transverse myelitis, spinal cord compression from spinal stenosis or spinal cord infarction. * MRI of the cervical spine revealed disc herniations identified on the sagittal data in the upper thoracic spine. No evidence of transverse myelitis within the cervical spine. Degenerative disc disease. Disc bulging and small left paracentral protrusion at C5 6 with ventral cord contact difficult to exclude. I personally reviewed MRI agree with the findings. * MRI of the lumbar spine showed degenerative disc disease with multilevel central stenosis, moderate at L3-L4 and L4-L5 levels. * Awaiting MRI of the thoracic spine, scheduled for tomorrow. * Consult orthopedic spine. * MRI of the brain without contrast, revealed no evidence of intracranial mass or acute/subacute infarct. Nonspecific white matter changes, likely secondary to small vessel ischemic disease. I personally reviewed MRI, I agree with the findings. * EEG was normal awake and drowsy. No focal, lateralized or epileptiform activity was seen. * Continue aspirin 81 mg daily and Lipitor 80 mg. * 2-D echo revealed normal left-ventricular size and systolic function, with EF estimated at 55-60%. Normal left ventricular wall motion. Mild MR with trace tricuspid regurgitation. Cannot exclude a PFO with [id number] shunting. Left atrium moderately dilated. * Patient may need GRAHAM for the further evaluation of a PFO and embolic source. Patient also has a possible ?transient run of atrial fibrillation during stroke symptoms noted by the nurse on quality assurance monitor body while patient was in the CT department. Cardiology input appreciated. * CTA head and neck showed: Approximately 50% stenosis of the bilateral carotid bifurcations secondary to calcified plaque. No evidence of dissection of the cervical internal carotid arteries or vertebral arteries. No evidence of intracranial high-grade stenosis or intracranial aneurysm. * Fasting a.m. lipid panel from 06/27/2022 showed cholesterol 139, LDL 48.7, HDL 48 and triglycerides 211. Patient takes Lipitor 80 mg daily. * Hemoglobin A1c 6.2 * B12 355, folate 17.6. B12 is borderline, we will start replacement. * Telemetry monitoring rule out any arrhythmia * DVT prophylaxis: Heparin 5000 units subcu every 8 hours. * Dr. Patino will cover neurology service over the weekend, and then Dr. Clinton Rivera will start neurology service on Friday.
[2022-09-20] MEDS: LITHIUM CARBONATE 300 MG CAP PO SCH (21:43)
[2022-09-20] MEDS: ATORVASTATIN 80 MG TAB PO SCH (21:43)
[2022-09-20] MEDS: lamoTRIgine 100 MG TAB PO SCH (21:43)
[2022-09-20] MEDS: MELATONIN 5 MG TABLET PO SCH (21:43)
[2022-09-21] MEDS: HEPARIN SODIUM,PORCINE/PF 5,000 UNIT/0.5 ML SYRINGE SQ SCH ×4 (01:14→23:49)
[2022-09-21 06:19] LABS: Glucose,Whole Blood 135 mg/dL (70-110)
[2022-09-21] MEDS: INSULIN ASPART (NovoLOG) 100 UNIT/ML VIAL SQ SCH ×4 (06:38→21:26)
[2022-09-21] MEDS: LEVOTHYROXINE 75 MCG TAB PO SCH (06:41)
[2022-09-21] MEDS: PANTOPRAZOLE 40 MG TABLET PO SCH (06:41)
[2022-09-21] MEDS: CYANOCOBALAMIN 1,000 MCG/ML 1 ML VIAL IM SCH (08:26)
[2022-09-21] MEDS: ASPIRIN 81 MG PO SCH (08:26)
[2022-09-21] MEDS: NYSTATIN 100,000 UNIT/GM POWD 15 GM TOPICAL SCH ×3 (08:34→21:30)
[2022-09-21 09:03] LABS: African American GFR (CKD) >90 (>60 ml/min/1.73 sqM); Anion Gap 7 mmol/L; Blood Urea Nitrogen 15 mg/dL (7-17); Calcium 8.9 mg/dL (8.4-10.2); Carbon Dioxide 25 mmol/L (22-30); Chloride 107 mmol/L (98-107); Glucose 125 mg/dL (74-99); Non-African American GFR(CKD) 80 (>60 ml/min/1.73 sqM); Potassium 4.5 mmol/L (3.5-5.1); Sodium 139 mmol/L (137-145)
[2022-09-21] MEDS ORDERED: LORazepam 2 MG/ML INJ IV STA ×2 (11:55)
[2022-09-21 12:11] LABS: Glucose,Whole Blood 127 mg/dL (70-110)
--- NOTE | 2022-09-21 14:36 | P.PN ---
Subjective Progress Note Date: 09/21/22 This is a 67 year old female with medical history of asthma, sleep apnea with CPAP use, hyperlipidemia, hypertension, diabetes mellitus, thyroid disorder anxiety depression. Patient came in for complaints of week long history of weakness and fatigue as well as chest pain in the mid sternum radiating to the left arm and jaw which has been ongoing for the last few days. Patient waited it out at home and pain was not improving, also reports associated dizziness, lightheadedness and diaphoresis. Patient denies any fever or chills, no cough. Does have a history of cardiac catheterization with no prior stenting reported. Has strong family history of coronary artery disease, all 5 of her brothers have underwent coronary bypass. Work up reveals normal hemoglobin 12.0, white count normal. D-Dimer is normal at 0.29, normal kidney function, troponin level negative x 3 and proBNP level of 20. Urinalysis is negative. TSH is normal at 1.130. Patient will be admitted in observation and cardiology has been c onsulted. 09/18/2022 Patient is evaluated today sitting up on edge of bed continues to report fatigue and weakness. Patient does report partial compliance with CPAP machine not following up with a chemical waste management technician. Patient underwent dobutamine stress echo which was negative, echocardiogram reveals an EF 55-60% and cannot exclude a PFO with left to right shunting. Cardiology has cleared the patient to follow up in the office. Recommending to check ABGs and patient will be started on inhaled steroids. Patient does feel like she may have "long covid" does not feel fully recovered since having covid 1 year ago. 09/19/2022 Patient is evaluated in intensive care unit. Yesterday lunchtime after walking back to the bathroom patient had an episode of staring off into space and noted to have a left facial droop and also some left-sided weakness. Patient also has bilateral lower extremity weakness. A code stroke was called and patient had brain CT which was negative. Patient had a brain CTA done showing approximately 50% stenosis of the bilateral carotid bifurcation secondary to calcified plaque. No evidence of dissecation of the cervical internal carotid arteries or vertebral arteries. No evidence of intracranial high grade stenosis of intracranial aneurysm. 24 hour f/u brain CT after TPA is negative. Patient had EEG done today which is negative for seizure activity. Brain MRI shows no evidence of intracranial mass or acute/subacute infarct. There is nonspecific white matter changes likely secondary to small vessel ischemic disease. Lab from today is essentially unremarkable with mildly elevated chloride at 108. Hgb A1C 6.2. Patient now reports migraine and fioricet has been added. 09/20/2022 Patient is evaluated today in intensive care unit. Patient has improvement in her left facial droop, patients tongue is protruding to midline. She does continue to have some left upper extremity weakness and also bilateral lower extremity weakness and numbness. Patient is scheduled to undergo MRI of the cervical thoracic and lumbar spine today. Laboratory data is unremarkable, blood glucose in the 120s to 130s. Magnesium has improved up to 2.0. Heart rate in the 50s sinus bradycardia, blood pressure stable 135/74, patient is on room air and afebrile. 09/21/2022 Patient has been moved out of the ICU and monitored on the step down unit. Continues with frequent neuro checks facial droop seems to have improved and patient has been able to move her lower extremities and gaining sensation back. Had cervical and and lumbar MRI showing degenerative disc disease with mult ilevel central stenosis. Patient to undergo thoracic MRI today. PT and OT have evaluated the patient with recommendations for subacute rehab. Review of Systems Constitutional: Reports fatigue denied any fever. Cardio vascular: denied any chest pain, palpitations Gastrointestinal: denied any nausea, vomiting, diarrhea Pulmonary: Reports shortness of breath, no cough Neurologic: Reports bilateral lower extremity weakness/numbness upper extremity and facial droop are improved. All inpatient medications were reviewed and appropriate changes in these medications as dictated in the interval history and assessment and plan. PHYSICAL EXAMINATION: GENERAL: The patient is alert and oriented x3, not in any acute distress. Well developed, well nourished. Obesity HEENT: Pupils are round and equally reacting to light. EOMI. No scleral icterus. No conjunctival pallor. Normocephalic, atraumatic. No pharyngeal erythema. No thyromegaly. CARDIOVASCULAR: S1 and S2 present. No murmurs, rubs, or gallops. PULMONARY: Chest is clear to auscultation, no wheezing or crackles. ABDOMEN: Soft, nontender, nondistended, normoactive bowel sounds. No palpable organomegaly. MUSCULOSKELETAL: No joint swelling or deformity. EXTREMITIES: No cyanosis, clubbing, or pedal edema. NEUROLOGICAL: Left hand grasp weak bilateral lower extremity weakness. and Left facial droop improving tongue is now protruding to baseline, no swallowing difficulties. SKIN: No rashes. Assessment Acute altered mental status, acute stroked uled out patietn had left facial droop and bilateral lower extremity weakness. Brain CT/MRI negative for acute stroke. EEG negative for seizure like activity. This may have been psychogenic in nature. Chest pain and fatigue, acute coronary syndrome ruled out Bilateral lower extremity weakness and parasthesias undering MRI imaging Possible transient atrial fibrillation Sinus bradycardia Thyroid disorder normal TSH Hx hypertension Hx hyperlipidemia Diabetes Mellitus type 2 Sleep apnea with CPAP use Anxiety/Depression Hx of left sided Kelly's Palsy Hx Borderline personality disorder Morbid Obesity with BMI 60.5. GI prophylaxis DVT prophylaxis Full Code Plan Cardiology reconsulted possible transient a.fib no evidence and no further recommendations. Thoracic MRI scheduled for today Continue aspirin and high intensity statin PT/OT and speech therapy on consultation Nephrology following closely and orthopedics The impression and plan of care has been dictated by Ashley Kendrick, Nurse Practitioner as directed. Dr. Fatmata MD I have performed a history and physical examination and medical decision making of this patient, discussed the same with the dictator, and agree with the dictators assessment and plan as written, documented as a scribe. Based on total visit time, I have performed more than 50% of this visit. Objective - Vital Signs Vital signs: Vital Signs Temp 98.6 F 09/21/22 11:10 Pulse 59 L 09/21/22 11:10 Resp 16 09/21/22 11:10 BP 128/71 09/21/22 11:10 Pulse Ox 97 09/21/22 11:10 FiO2 Intake & Output 09/20/22 09/21/22 09/21/22 18:59 06:59 18:59 Intake Total 380 Output Total 250 350 Balance -250 -350 380 Intake: IV 20 Invasive Line 1 20 Oral 360 Output: Urine 250 350 Other: Voiding Method Indwelling Catheter Indwelling Catheter Indwelling Catheter # Bowel Movements 1 - Labs CBC & Chem 7: 09/20/22 04:17 09/21/22 07:55 Labs: Abnormal Lab Results - Last 24 Hours (Table) 09/20/22 09/20/22 09/21/22 Range/Units 16:32 20:20 06:18 Glucose (74-99) mg/dL POC Glucose (mg/dL) 151 H 148 H 135 H (70-110) mg/dL 09/21/22 09/21/22 Range/Units 07:55 11:54 Glucose 125 H (74-99) mg/dL POC Glucose (mg/dL) 127 H (70-110) mg/dL Assessment and Plan Time with Patient: Less than 30
--- NOTE | 2022-09-21 15:07 | MR ---
EXAMINATION TYPE: MR thoracic spine wo/w con DATE OF EXAM: 09/21/2022 2:35 PM COMPARISON: No priors. INDICATION: Patient age:Female; 67 years old; Reason for study: New paraplegia, R/O Transverse myelitis/stenosis;. New paraplegia, r/o transverse m yelitis/stenosis TECHNIQUE: Multi planar, multi sequence imaging was performed utilizing: T1-weighted, short-tau inver isabel recovery and T2-weighted of the thoracic spine. The patient was not given Gadolinium. IV Contrast: 14 cc Gadavist FINDINGS: Alignment: Scoliosis changes to the thoracic spine. Vertebral bodies have preserved heights. Spinal cord: Spinal cord is within normal limits for signal. No abnormal postcontrast enhancement of the spinal cord. Discs/Osseous structures: : Multilevel disc desiccation is present. There is scattered osteophytes di sc space narrowing and facet joint arthropathy throughout the spine. Overall the neural foramen are p atent throughout the spine. No evidence for significant neural foraminal stenosis. Visualized portion s of the spine demonstrate no significant spinal canal stenosis within the thoracic spine. There is d isc bulging at multiple levels without evidence for significant spinal canal stenosis. There is somewhat limited evaluation due to slice selection throughout the spine. There is thought to be disc bulging throughout the upper spine with possible L3-L4 central disc protrusion without signi ficant spinal canal stenosis. Central disc protrusion at T5-T6 may also be present without significan t spinal canal stenosis. Left central disc protrusion at T7-T8 without significant spinal canal steno sis. IMPRESSION: Degraded exam secondary to motion. No evidence for abnormal cord signal. No abnormal postcontrast enh ancement. The neural foramen and spinal canal are patent. Vertebral levels in the spine may have extr adural defects as described above. No abnormal postcontrast enhancement.
--- NOTE | 2022-09-21 15:41 | P.PN ---
Subjective Progress Note Date: 09/21/22 The patient is a 67-year-old female who is seen in neurologic follow-up on September 21, 2022, via teleneurology. The patient's chart has been reviewed. The patient reports that she has a weakness and numbness of her lower extremities. She currently has a urinary catheter in place. She does report experiencing urges, to have a bowel movement. At the time of this evaluation, the patient denies having had one today. The patient says that she feels as if her legs are tight and numb. She says sometimes she is able to wiggle her toes other times she is not. She denies weakness in her upper extremities. The patient denies back and and neck pain. The patient's symptoms reportedly began following a cardiac catheterization. The patient was initially worked up for stroke, because of symptoms of It apha calvin, weakness and dizziness. The patient had a normal CT scan of the brain. MRI of the brain was also negative for acute infarct. After these symptoms resolved, the patient reported having weakness and numbness of her bilateral lower extremities. MRI of the cervical and thoracic spine is negative for evidence of spinal cord compression. Patient is to have an MRI of the thoracic spine today. Objective - Vital Signs Vital signs: Vital Signs Temp 98.6 F 09/21/22 11:10 Pulse 59 L 09/21/22 11:10 Resp 16 09/21/22 11:10 BP 128/71 09/21/22 11:10 Pulse Ox 97 09/21/22 11:10 FiO2 Intake & Output 09/20/22 09/21/22 09/21/22 18:59 06:59 18:59 Intake Total 380 Output Total 250 350 375 Balance -250 -350 5 Intake: IV 20 Invasive Line 1 20 Oral 360 Output: Urine 250 350 375 Other: Voiding Method Indwelling Catheter Indwelling Catheter Indwelling Catheter # Bowel Movements 1 - Exam Gen.: The patient is reclining in the bed. She is morbidly obese. She is in no acute distress. HEENT: Head is atraumatic, normocephalic. Fundus not visualized. There is no scleral icterus. Mucous membranes are moist. Neurological examination Mental status: The patient is awake, alert and oriented 3. Her speech is inge ar. Cranial nerves: 2-12 grossly intact Motor: Upper extremity strength is 4/5 in the bilateral maid supervisor strength. I sepsis and triceps strength 5/5. Bilateral hip flexors 3/5. Ankle dorsiflexors 3/5. Right ankle plantar flexor 4/5. Left ankle plantar flexor 3/5. Sensation: Grossly intact to light touch Deep tendon reflexes: 3+/4+ throughout. Plantar responses are flexor on the left and mute on the right. - Labs CBC & Chem 7: 09/20/22 04:17 09/21/22 07:55 Labs: Abnormal Lab Results - Last 24 Hours (Table) 09/20/22 09/20/22 09/21/22 Range/Units 16:32 20:20 06:18 Glucose (74-99) mg/dL POC Glucose (mg/dL) 151 H 148 H 135 H (70-110) mg/dL 09/21/22 09/21/22 Range/Units 07:55 11:54 Glucose 125 H (74-99) mg/dL POC Glucose (mg/dL) 127 H (70-110) mg/dL Assessment and Plan Assessment: New onset paraparesis, unclear cause. Rule out transverse myelitis, rule out spinal cord compression from spinal stenosis-Ruled out with cervical spine MRI * Cephalalgia, unclear cause. * Reported possible transient atrial fibrillation. * Diabetes * Hypertension * Sleep apnea * Borderline personality disorder, anxiety depression, currently on lithium and Lamictal * History of Kelly's palsy affecting left side of the face. Plan: 1. Appreciate orthopedic input 2. MRI of the thoracic spine has been completed and is negative for signs of spinal cord compression and transverse myelitis 3. Consider CT scan of the abdomen and pelvis possibly to investigate for hematoma, caused by IV TPA 4. Physical therapy consultation Time with Patient: Greater than 30 (40 minutes were spent caring for this patie nt today including, obtaining a history, examining the patient, reviewing imaging, chart documentation, labs, placing orders and creating this note)
[2022-09-21 16:49] LABS: Glucose,Whole Blood 120 mg/dL (70-110)
[2022-09-21 21:27] LABS: Glucose,Whole Blood 141 mg/dL (70-110)
[2022-09-21] MEDS: lamoTRIgine 100 MG TAB PO SCH (21:30)
[2022-09-21] MEDS: LITHIUM CARBONATE 300 MG CAP PO SCH (21:30)
[2022-09-21] MEDS: MELATONIN 5 MG TABLET PO SCH (21:30)
[2022-09-21] MEDS: ATORVASTATIN 80 MG TAB PO SCH (21:30)
[2022-09-22 06:24] LABS: Glucose,Whole Blood 131 mg/dL (70-110)
[2022-09-22] MEDS: INSULIN ASPART (NovoLOG) 100 UNIT/ML VIAL SQ SCH ×4 (06:45→20:17)
[2022-09-22] MEDS: LEVOTHYROXINE 75 MCG TAB PO SCH (06:55)
[2022-09-22] MEDS: PANTOPRAZOLE 40 MG TABLET PO SCH (06:55)
[2022-09-22] MEDS: ASPIRIN 81 MG PO SCH (07:57)
[2022-09-22] MEDS: HEPARIN SODIUM,PORCINE/PF 5,000 UNIT/0.5 ML SYRINGE SQ SCH ×3 (07:57→23:04)
[2022-09-22] MEDS: NYSTATIN 100,000 UNIT/GM POWD 15 GM TOPICAL SCH ×3 (07:58→23:04)
--- NOTE | 2022-09-22 08:42 | P.CNOR ---
History of Present Illness - [facility] Consult date: 09/22/22 Requesting physician: Ashley Kendrick Consult reason: other (DDD and multilevel central stenosis and severe LE we akness.) History of present illness: Patient is a 67-year-old female who presented to the emergency department [facility] 09/16/2022 with chest pain. Patient does have past medical history significant for asthma, diabetes, hyperlipidemia. When patient came in to the ER, patient says she was having some chest pain that radiated to the left arm jaw and into her back with shortness of breath. Orthopedics was consulted to stenosis in the back and degenerative disc disease. Patient was seen at bedside this morning lying in semirecumbent position. Patient says initially when she is coming the hospital about a week ago she was having a lot of lower extremity weakness and numbness and tingling from both her knees down to her feet. Patient does have a history of diabetes with diabetic neuropathy, however, patient says this numbness/tingling was a little bit different. Patient denies any loss of bowel/bladder control. Patient denies saddle anesthesia. Patient denies any previous orthopedic surgical history of any spine surgeries in the past. Patient says she also did have some weakness in the lower extremities initially when she came to the hospital for the first couple days. Patient says over the past few days the weakness in her lower extremity is has improved as well as the numbness/tingling. Patient denies having any current chest pain, shortness breath, weakness, nausea, vomiting, change in vision, loss of bowel/bladder control. 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 Past Anesthesia/Blood Transfusion Reactions: Family History of Problems w/ Anesthesia, Motion Sickness Additional Past Anesthesia/Blood Transfusion Reaction / Comm: clausterphobia. pt's sister had diff breathing from anesthesia Past Psychological History: Anxiety, Depression, Panic Disorder Smoking Status: Never smoker Past Alcohol Use History: None Reported Past Drug Use History: None Reported - Past Family History Son(s) Additional Family Medical History / Comment(s): She has 2 sons with no major medical problems. Patient does not have any daughters. Mother Additional Family Medical History / Comment(s): Mother at age 80 from renal failure. Father Additional Family Medical History / Comment(s): Father at age 67 with history of AR and stroke Brother(s) Family Medical History: Cancer Additional Family Medical History / Comment(s): She has total of 5 brothers and all had history of coronary artery disease and CABG, hypertension, hyperlip idemia, diabetes. Sister(s) Family Medical History: Cancer Additional Family Medical History / Comment(s): one sister of colon cancer, second sister had ovarian cancer Medications and Allergies Home Medications Medication Instructions Recorded Confirmed Type Atorvastatin [Lipitor] 80 mg PO HS 01/22/18 09/16/22 History Levothyroxine Sodium 150 mcg PO DAILY 01/22/18 09/16/22 History Albuterol Sulfate [Ventolin HFA] 2 puff INHALATION RT-Q4H PRN 10/10/19 09/16/22 History Aspirin 81 mg PO DAILY chew 10/15/19 09/16/22 Rx Fluticasone Nasal [place] [Flonase 1 spray EA NOSTRIL DAILY PRN 04/27/20 09/16/22 History Nasal [place]] Furosemide [Lasix] 40 mg PO DAILY 04/27/20 09/16/22 History Nystatin 100,000Unit/gm Cream 1 applic TOPICAL BID 04/27/20 09/16/22 History [Mycostatin Cream] Potassium Chloride ER [K-Dur 10] 10 meq PO DAILY 04/27/20 09/16/22 History Valsartan 80 mg PO HS 04/27/20 09/16/22 History lamoTRIgine [lamoTRIgine ER] 50 mg PO HS 10/06/21 09/16/22 History lamoTRIgine [lamoTRIgine ER] 100 mg PO HS 10/06/21 09/16/22 History [place] Carbonate [[place] 300 mg PO HS 09/16/22 09/16/22 History Carbonate ER] Melatonin 5 mg PO HS 09/16/22 09/16/22 History Omeprazole 20 mg PO DAILY 09/16/22 09/16/22 History Pantoprazole [Protonix] 40 mg PO DAILY 09/16/22 09/16/22 History metFORMIN HCL ER [Glucophage XR] 1,000 mg PO BID 09/16/22 09/16/22 History Nystatin 100,000 Unit/gm Powd 1 applic TOPICAL TID #1 each 09/18/22 Rx [Mycostatin Powder] Allergies Allergy/AdvReac Type Severity Reaction Status Date / Time sulfamethoxazole Allergy Unknown Rash/Hives, Verified 09/16/22 14:51 [From Bactrim] SOB trimethoprim [From Bactrim] Allergy Unknown Rash/Hives, Verified 09/16/22 14:51 SOB Physical Examination Inspection: Negative for any open fractures, ecchymosis, erythema, open wounds, scoliosis. Bilateral lower extremity edema Sensation: Equal, symmetric, bilaterally intact throughout the upper and lower extremities Palpation: There is a fair amount of tenderness of patient throughout midline in the lumbar spine. Nontender to palpation throughout rest of exam Range of motion: Patient has full range of motion bilateral upper extremities on exam. There is some limited range of motion and bilateral knees and hips secondary referred pain from the low back and some weakness Motor: 4+/5 in all major motor groups in bilateral upper extremities. 4-/5 in resisted bilateral hip flexion/extension and bilateral knee flexion/extension. 4/5 in resisted bilateral ankle dorsi/plantar flexion and EHL/FHL. Neurovascular status: Radial pulse intact, 2+ bilaterally. Cap refill under 3 seconds in digits upper extremities Special tests: Negative Homans bilaterally. Negative Sawyer bilaterally. Negative clonus bilaterally Results - Labs Labs: Abnormal Lab Results - Last 24 Hours (Table) 09/21/22 09/21/22 09/21/22 Range/Units 07:55 11:54 16:39 Glucose 125 H (74-99) mg/dL POC Glucose (mg/dL) 127 H 120 H (70-110) mg/dL 09/21/22 09/22/22 Range/Units 21:25 06:22 Glucose (74-99) mg/dL POC Glucose (mg/dL) 141 H 131 H (70-110) mg/dL H & H 09/16/22 09/17/22 09/18/22 Range/Units 14:07 05:40 06:39 Hgb 12.0 11.1 L 12.3 (11.4-16.0) gm/dL Hct 36.8 36.9 L 40.0 (34.0-46.0) % 09/18/22 09/19/22 09/20/22 Range/Units 12:24 05:58 04:17 Hgb 11.8 11.4 11.5 (11.4-16.0) gm/dL Hct 37.7 36.4 35.0 (34.0-46.0) % Coagulation 09/16/22 09/18/22 Range/Units 14:07 12:24 INR 1.0 1.0 (<1.2) Result Diagrams: 09/20/22 04:17 09/21/22 07:55 - Diagnostic results Cervical MRI with/without contrast: report reviewed, image reviewed (Generalized spondylosis and degenerative disc disease throughout the cervical spine. Negative for any fracture/significant central canal stenosis) Lumbar MRI with/without contrast: report reviewed, image reviewed (Lumbar MRI are reviewed. There is evident degenerative disease throughout the lumbar spine as well as moderate central canal stenosis from L3 through L5. Negative for any fractures. There is some generalized neuroforaminal stenosis at these levels) Assessment and Plan Assessment: 1. Low back pain; L3 to L5 moderate central canal stenosis; Degenerative disc disease; lumbar spondylosis; cervical spondylosis 2. Multiple medical comorbidities Plan: 1. Low back pain; L3 to L5 moderate central canal stenosis; Degenerative disc disease; lumbar spondylosis; cervical spondylosis - patient was seen at bedside this morning. Negative for any tensioning signs of exam. Patient does have decent strength on exam. MRI of the cervical thoracic and lumbar spines has been reviewed. There is evidence of moderate central canal stenosis from L3 through L5. Negative for any significant stenosis in the cervical or thoracic spines. There is spondylosis and degenerative disc disease throughout the spine. Negative for any fractures. I will discuss the findings of the exam and imaging with my attending, Dr. Nair before proceeding with any potential intervention orthopedically. At this time I'm not recommending any emergent orthopedic surgical intervention. I do recommend conservative measures with pain medication and possibly use of IV steroids to help control symptoms. PT/OT daily with walker and assistance. We'll continue to be available to follow patient as needed while she is here in hospital 2. Appreciate medical management 3. Pain management - Tylenol 4. GI prophylaxis - Protonix 5. DVT prophylaxis - heparin; aspirin 6. PT/OT - weightbearing as tolerated with walker and assistance 7. Encourage incentive spirometer use 8. Appreciate consult Time with Patient: Less than 30
[2022-09-22 11:48] LABS: Glucose,Whole Blood 137 mg/dL (70-110)
--- NOTE | 2022-09-22 14:45 | P.PN ---
Subjective Progress Note Date: 09/22/22 This is a 67 year old female with medical history of asthma, sleep apnea with CPAP use, hyperlipidemia, hypertension, diabetes mellitus, thyroid disorder anxiety depression. Patient came in for complaints of week long history of weakness and fatigue as well as chest pain in the mid sternum radiating to the left arm and jaw which has been ongoing for the last few days. Patient waited it out at home and pain was not improving, also reports associated dizziness, lightheadedness and diaphoresis. Patient denies any fever or chills, no cough. Does have a history of cardiac catheterization with no prior stenting reported. Has strong family history of coronary artery disease, all 5 of her brothers have underwent coronary bypass. Work up reveals normal hemoglobin 12.0, white count normal. D-Dimer is normal at 0.29, normal kidney function, troponin level negative x 3 and proBNP level of 20. Urinalysis is negative. TSH is normal at 1.130. Patient will be admitted in observation and cardiology has been c onsulted. 09/18/2022 Patient is evaluated today sitting up on edge of bed continues to report fatigue and weakness. Patient does report partial compliance with CPAP machine not following up with a customer development representative. Patient underwent dobutamine stress echo which was negative, echocardiogram reveals an EF 55-60% and cannot exclude a PFO with left to right shunting. Cardiology has cleared the patient to follow up in the office. Recommending to check ABGs and patient will be started on inhaled steroids. Patient does feel like she may have "long covid" does not feel fully recovered since having covid 1 year ago. 09/19/2022 Patient is evaluated in intensive care unit. Yesterday lunchtime after walking back to the bathroom patient had an episode of staring off into space and noted to have a left facial droop and also some left-sided weakness. Patient also has bilateral lower extremity weakness. A code stroke was called and patient had brain CT which was negative. Patient had a brain CTA done showing approximately 50% stenosis of the bilateral carotid bifurcation secondary to calcified plaque. No evidence of dissecation of the cervical internal carotid arteries or vertebral arteries. No evidence of intracranial high grade stenosis of intracranial aneurysm. 24 hour f/u brain CT after TPA is negative. Patient had EEG done today which is negative for seizure activity. Brain MRI shows no evidence of intracranial mass or acute/subacute infarct. There is nonspecific white matter changes likely secondary to small vessel ischemic disease. Lab from today is essentially unremarkable with mildly elevated chloride at 108. Hgb A1C 6.2. Patient now reports migraine and fioricet has been added. 09/20/2022 Patient is evaluated today in intensive care unit. Patient has improvement in her left facial droop, patients tongue is protruding to midline. She does continue to have some left upper extremity weakness and also bilateral lower extremity weakness and numbness. Patient is scheduled to undergo MRI of the cervical thoracic and lumbar spine today. Laboratory data is unremarkable, blood glucose in the 120s to 130s. Magnesium has improved up to 2.0. Heart rate in the 50s sinus bradycardia, blood pressure stable 135/74, patient is on room air and afebrile. 09/21/2022 Patient has been moved out of the ICU and monitored on the step down unit. Continues with frequent neuro checks facial droop seems to have improved and patient has been able to move her lower extremities and gaining sensation back. Had cervical and and lumbar MRI showing degenerative disc disease with mult ilevel central stenosis. Patient to undergo thoracic MRI today. PT and OT have evaluated the patient with recommendations for subacute rehab. 09/22/2022 Patient is evaluated today resting in bed, she is able to move her lower extremities independently and with strength 5 out of 5 and hold them off the foot of the bed. Patient is encouraged to get up in the chair for meals and to increase her activity level. She originally had refused to go subacute rehab and now is agreeable to this. This will be evaluated tomorrow by social and political studies professor. She underwent a thoracic MRI today which reveals degraded exam secondary to motion there is no evidence for abnormal cord signal in no abnormal postcontrast enhancement the neural foramen and spinal canal or pain vertebral levels in the spine may have extradural defects as described in the final report there is no abnormal postcontrast enhancement. Was evaluated by Dr. Quiroz and there is concern for L3 to L5 moderate central canal stenosis as well as degenerative disc disease lumbar spondylosis and cervical spine spondylosis. Current recommendations are for conservative management with pain medication, IV steroids and PT OT and they will follow-up with patient outpatient. Logically all symptoms have resolved patient does continue to complain of some fatigue and weakness we'll check a vitamin D3 level. Again patient is recommended on ainsley landaverde to follow-up with pulmonary services for full pulmonary function testing and that sleep study to review her CPAP settings. Review of Systems Constitutional: Reports fatigue denied any fever. Cardio vascular: denied any chest pain, palpitations Gastrointestinal: denied any nausea, vomiting, diarrhea Pulmonary: Reports shortness of breath, no cough Neurologic: Reports bilateral lower extremity weakness/numbness upper extremity and facial droop are improved. All inpatient medications were reviewed and appropriate changes in these medications as dictated in the interval history and assessment and plan. PHYSICAL EXAMINATION: GENERAL: The patient is alert and oriented x3, not in any acute distress. Well developed, well nourished. Obesity HEENT: Pupils are round and equally reacting to light. EOMI. No scleral icterus. No conjunctival pallor. Normocephalic, atraumatic. No pharyngeal erythema. No thyromegaly. CARDIOVASCULAR: S1 and S2 present. No murmurs, rubs, or gallops. PULMONARY: Chest is clear to auscultation, no wheezing or crackles. ABDOMEN: Soft, nontender, nondistended, normoactive bowel sounds. No palpable organomegaly. MUSCULOSKELETAL: No joint swelling or deformity. EXTREMITIES: No cyanosis, clubbing, or pedal edema. NEUROLOGICAL: Equal strength upper and lower extremites with no pronator drift and no facial droop. Symptoms have resolved. SKIN: No rashes. Assessment Acute altered mental status, acute stroked uled out patient had left facial droop and bilateral lower extremity weakness. Brain CT/MRI negative for acute stroke. EEG negative for seizure like activity. This may have been psychogenic in nature. L3 to L5 moderate central canal stenosis and DDD/lumbar spondylosis Bilateral lower extremity weakness and parasthesias secondary to above Chest pain and fatigue, acute coronary syndrome ruled out Possible transient atrial fibrillation Sinus bradycardia Thyroid disorder normal TSH Hx of COVID x3 with chronic fatigue since Hx hypertension Hx hyperlipidemia Diabetes Mellitus type 2 Sleep apnea with CPAP use Anxiety/Depression Hx of left sided Kelly's Palsy Hx Borderline personality disorder Morbid Obesity with BMI 60.5. GI prophylaxis DVT prophylaxis Full Code Plan Cardiology reconsulted possible transient a.fib no evidence and no further recommendations. Continue aspirin and high intensity statin Orthopedics recommending conservative management with pain management and PT OT and will see patient in the office on discharge. PT/OT and speech therapy on consultation Commending subacute rehab and social workers on consultation and discharge planning planned for tomorrow. Patient recommended to follow-up with pulmonary in the sleep center on discharge for full pulmonary function testing and sleep study Check vitamin D3 level Nephrology following closely Discharge in the next 24 hours The impression and plan of care has been dictated by Ashley Kendrick, Nurse Practitioner as directed. Dr. Fatmata MD I have performed a history and physical examination and medical decision making of this patient, discussed the same with the dictator, and agree with the dictators assessment and plan as written, documented as a scribe. Based on total visit time, I have performed more than 50% of this visit. Objective - Vital Signs Vital signs: Vital Signs Temp 98.1 F 09/22/22 07:54 Pulse 62 09/22/22 07:54 Resp 16 09/22/22 07:54 BP 125/74 09/22/22 07:54 Pulse Ox 99 09/22/22 07:54 FiO2 Intake & Output 09/21/22 09/22/22 09/22/22 18:59 06:59 18:59 Intake Total 500 20 10 Output Total 375 775 Balance 125 -755 10 Intake: IV 20 20 10 Invasive Line 1 20 20 10 Oral 480 Output: Urine 375 775 Other: Voiding Method Indwelling Catheter Indwelling Catheter Indwelling Catheter # Bowel Movements 1 - Labs CBC & Chem 7: 09/20/22 04:17 09/21/22 07:55 Labs: Abnormal Lab Results - Last 24 Hours (Table) 09/21/22 09/21/22 09/21/22 Range/Units 11:54 16:39 21:25 POC Glucose (mg/dL) 127 H 120 H 141 H (70-110) mg/dL 09/22/22 Range/Units 06:22 POC Glucose (mg/dL) 131 H (70-110) mg/dL
[2022-09-22 16:59] LABS: Glucose,Whole Blood 140 mg/dL (70-110)
--- NOTE | 2022-09-22 17:10 | P.PN ---
Subjective Progress Note Date: 09/22/22 The patient is a 67-year-old female who is seen in neurologic follow-up on September 21, 2022, via teleneurology. The patient's chart has been reviewed. The patient reports that she has a weakness and numbness of her lower extremities. She currently has a urinary catheter in place. She does report experiencing urges, to have a bowel movement. At the time of this evaluation, the patient denies having had one today. The patient says that she feels as if her legs are tight and numb. She says sometimes she is able to wiggle her toes other times she is not. She denies weakness in her upper extremities. The patient denies back and and neck pain. The patient's symptoms reportedly began following a cardiac catheterization. The patient was initially worked up for stroke, because of symptoms of It apha calvin, weakness and dizziness. The patient had a normal CT scan of the brain. MRI of the brain was also negative for acute infarct. After these symptoms resolved, the patient reported having weakness and numbness of her bilateral lower extremities. MRI of the cervical and thoracic spine is negative for evidence of spinal cord compression. Patient is to have an MRI of the thoracic spine today. The patient is seen in neurologic follow-up on September 22, 2022, in collaboration with Sonam Veloz, via teleneurology. The patient has family members present in the room at the time of the evaluation. Patient reports that she has not been out of the bed. She reports that there has been no change in the strength of her legs. She feels as if her numbness is slightly worse. The patient denies back pain. The patient reports that physical therapy has not worked with her as of yet. The end of the evaluation, the patient's son questions the patient's left facial droop. He reports that her "Kelly's palsy has returned". He wonders why this is the case. Objective - Vital Signs Vital signs: Vital Signs Temp 98.1 F 09/22/22 07:54 Pulse 64 09/22/22 16:23 Resp 16 09/22/22 16:23 BP 108/71 09/22/22 16:23 Pulse Ox 95 09/22/22 16:23 FiO2 Intake & Output 07/29/23 07/30/23 07/30/23 18:59 06:59 18:59 Intake Total 500 20 256 Output Total 375 775 600 Balance 777 -198 -446 Intake: IV 20 20 20 Invasive Line 1 20 20 20 Oral 480 236 Output: Urine 375 775 600 Other: Voiding Method Indwelling Catheter Indwelling Catheter Indwelling Catheter # Bowel Movements 1 2 - Exam Gen.: The patient is reclining in the bed. She is morbidly obese. She is in no acute distress. HEENT: Head is atraumatic, normocephalic. Fundus not visualized. There is no scleral icterus. Mucous membranes are moist. Neurological examination Mental status: The patient is awake, alert and oriented 3. Her speech is clear. Cranial nerves: Pupils are equal, round and reactive to light. When asked to smile, the patient elevates the right side of her mouth. She does not elevate either eyebrow. She closes her eyes however does not squeeze them tight. The patient's tongue protrudes out of the right corner of her mouth. Shoulder shrug is symmetric. Motor: Upper extremity strength is not assessed today. When assessing bilateral hip flexor strength, there is no downwards/extensor pressure from the opposing leg. This is suggestive of a functional weakness. Sensation: The patient reports inability to feel light touch sensation to her feet. She does report sensation of her lower legs and thighs Deep tendon reflexes: 2+/4+ in the upper extremities. Lower extremity reflexes are absent at this time. Plantar responses are flexor on the left and mute on the right. 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 Spinal cord abnormalities have been ruled out. In addition, the patient's neurological examination/lower extremity strength appears to be different depending on time of day and/or who is doing the exam * Cephalalgia, unclear cause. * Reported possible transient atrial fibrillation. * Diabetes * Hypertension * Sleep apnea * Borderline personality disorder, anxiety depression, currently on lithium and Lamictal * History of Kelly's palsy affecting left side of the face. Return of left-sided facial weakness is also functional in that, when specifically asked to smile, the patient did not elevate the left side of her mouth however as we're exit ing the room, the patient has a symmetric smile Plan: 1. Consider psychiatry versus social work consultation for functional weakness 2. Appreciate orthopedic input 3. Physical therapy consultation. A new order was placed today 4. It was explained to the patient's son, at the bedside that tiredness/fatigue may unmask the patient's previous facial weakness Dr. Clinton Rivera will assume neurologic coverage of this patient has of September 23, 2022 Time with Patient: Greater than 30 (35 minutes were spent in caring for this patient today including obtaining a history, examining the patient, discussing the patient's status with nursing, answering questions from the patient's son, placing orders and creating this note)
[2022-09-22 20:13] LABS: Glucose,Whole Blood 108 mg/dL (70-110)
[2022-09-22] MEDS: ATORVASTATIN 80 MG TAB PO SCH (20:16)
[2022-09-22] MEDS: LITHIUM CARBONATE 300 MG CAP PO SCH (20:17)
[2022-09-22] MEDS: ACETAMINOPHEN TAB 325 MG TAB PO PRN (20:17)
[2022-09-22] MEDS: MELATONIN 5 MG TABLET PO SCH (20:17)
[2022-09-22] MEDS: lamoTRIgine 100 MG TAB PO SCH (20:17)
[2022-09-23 06:15] LABS: Glucose,Whole Blood 132 mg/dL (70-110)
[2022-09-23] MEDS: INSULIN ASPART (NovoLOG) 100 UNIT/ML VIAL SQ SCH ×2 (06:18→12:12)
[2022-09-23] MEDS: LEVOTHYROXINE 75 MCG TAB PO SCH (06:40)
[2022-09-23] MEDS: PANTOPRAZOLE 40 MG TABLET PO SCH (06:40)
[2022-09-23 07:35] VITALS: RESP 16
[2022-09-23] MEDS: ASPIRIN 81 MG PO SCH (08:37)
[2022-09-23] MEDS: HEPARIN SODIUM,PORCINE/PF 5,000 UNIT/0.5 ML SYRINGE SQ SCH (08:37)
--- NOTE | 2022-09-23 08:58 | P.PN ---
Subjective Progress Note Date: 09/23/22 Principal diagnosis: Degenerative disc disease Multilevel central stenosis Severe bilateral lower extremities weakness Patient seen and examined this morning. Patient is resting comfortably in bed. Patient denies any lower back pain at this time, she states the only discomfort is the numbness and tingling into the bilateral lower extremities. Patient states she is looking forward to going to rehab to regain strength and mobility. There has been no acute events overnight. Discussed with patient about following up in our office outpatient, that there is no need for any urgent surgery at this time. Patient verbalizes understanding. Objective - Vital Signs Vital signs: Vital Signs Temp 98.0 F 09/23/22 07:34 Pulse 68 09/23/22 07:34 Resp 16 09/23/22 07:34 BP 120/70 09/23/22 07:34 Pulse Ox 94 L 09/23/22 07:34 FiO2 Intake & Output 09/22/22 09/23/22 09/23/22 18:59 06:59 18:59 Intake Total 616 Output Total 600 1000 Balance 16 -1000 Weight 139 kg Intake: IV 20 Invasive Line 1 20 Oral 596 Output: Urine 600 1000 Other: Voiding Method Indwelling Catheter Indwelling Catheter # Bowel Movements 2 - Exam Inspection: Negative for any open fractures, ecchymosis, erythema, open wounds, scoliosis. Bilateral lower extremity edema Sensation: Equal, symmetric, bilaterally intact throughout the upper and lower extremities Palpation: There is a fair amount of tenderness of patient throughout midline in the lumbar spine. Nontender to palpation throughout rest of exam Range of motion: Patient has full range of motion bilateral upper extremities on exam. There is some limited range of motion and bilateral knees and hips secondary referred pain from the low back and some weakness Motor: 4+/5 in all major motor groups in bilateral upper extremities. 4/5 in bilateral lower extremities. Neurovascular status: Radial pulse intact, 2+ bilaterally. Cap refill under 3 seconds in digits upper extremities Special tests: Negative Homans bilaterally. Negative Sawyer bilaterally. Ne gative clonus bilaterally - Labs CBC & Chem 7: 09/20/22 04:17 09/21/22 07:55 Labs: Abnormal Lab Results - Last 24 Hours (Table) 09/22/22 09/22/22 09/23/22 Range/Units 11:46 16:43 06:14 POC Glucose (mg/dL) 137 H 140 H 132 H (70-110) mg/dL Assessment and Plan Assessment: 1. Low back pain 2. L3 to L5 moderate central canal stenosis 3. Degenerative disc disease 4. lumbar spondylosis 5. cervical spondylosis 6. Multiple medical comorbidities Plan: At this time we do not recommend any emergent/urgent orthopedic surgical intervention. Patient may follow-up with Dr. Nair office for further evaluation as needed. Orthopedics is signing off at this time. Please do not hesitate to contact us for any further questions. 2. Appreciate medical management 3. Pain management - Continue with oral pain medications, patient may benefit from a trial of IV steroids, muscle relaxer, or a nerve modulator. 4. GI prophylaxis -per medicine 5. DVT prophylaxis - heparin 6. PT/OT - weightbearing as tolerated with a walker as needed. 7. Appreciate consult
[2022-09-23] MEDS: NYSTATIN 100,000 UNIT/GM POWD 15 GM TOPICAL SCH (10:14)
[2022-09-23] MEDS ORDERED: LORazepam 0.5 MG TAB PO ONE (10:35)
[2022-09-23 11:37] LABS: Glucose,Whole Blood 173 mg/dL (70-110)
[2022-09-23 14:25] VITALS: BP 102/59; PULSE 85; TEMP 98.2
--- NOTE | 2022-09-23 14:29 | P.DS ---
Providers Date of admission: 09/18/22 13:42 Attending physician: Nereyda Baker Consults: 09/16/22 16:14 Consult Physician Urgent Consulting Provider: [facility] Consult Reason/Comments: acute chest pain Do you want consulting provider notified?: Yes 09/18/22 12:54 Consult Physician Routine Consulting Provider: Romulo Rivera Consult Reason/Comments: ICU MANAGMENT Do you want consulting provider notified?: Yes 09/18/22 13:27 Consult Physician Routine Consulting Provider: Bob Kaba Consult Reason/Comments: code stroke Do you want consulting provider notified?: Already Contacted 09/20/22 16:11 Consult Physician Routine Consulting Provider: Sarath Nair Consult Reason/Comments: DDD and multilevel central stenosis and severe LE weakness. Do you want consulting provider notified?: Yes Primary care physician: Jacki Carr [facility] Course: Final Diagnosis Acute altered mental status, acute stroked ruled out patient had left facial droop and bilateral lower extremity weakness. Brain CT/MRI negative for acute stroke. EEG negative for seizure like activity. This may have been psychogenic in nature. 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 with exam differing by provider and time of day Hx of bells palsy and left facial weakness L3 to L5 moderate central canal stenosis and DDD/lumbar spondylosis Bilateral lower extremity weakness and parasthesias secondary to above Chest pain and fatigue, acute coronary syndrome ruled out Possible transient atrial fibrillation Sinus bradycardia Thyroid disorder normal TSH Hx of COVID x3 with chronic fatigue since Hx hypertension Hx hyperlipidemia Diabetes Mellitus type 2 Sleep apnea with CPAP use Anxiety/Depression Hx of left sided Kelly's Palsy Hx Borderline personality disorder Morbid Obesity with BMI 60.5. GI prophylaxis DVT prophylaxis Full Code Discharge Disposition Patient was stable for discharge over to subacute rehab today. Her neurological symptoms have essentially resolved her bilateral lower extremities have equal strength is weak but she is able to get up and ambulate and use bedside commode. She does have a history of bells pulse 1 facial droop as can be more pronounced at times and this is stable as per neurology. Patient did undergo TPA this admission. We are recommending patient to follow-up with a neurologist in 1-2 weeks on discharge she does not currently have a neurologist she may choose one local in town including Dr. Massey, Dr. Thorne, Dr. Mcleod, Dr. Franco. Continue with nystatin powder underneath her breasts and abdominal folds and groin this can be applied 3 times a day as needed. Valsartan has been discontinued patient's blood pressure is low and normal. Additional follow-ups include Dr. ANTONIO Reyes with cardiology, Dr Nair with orthopedic services, [facility], Dr Robles with pulmonary services, and PCP Dr. Jacki Carr. Patient does continue to report fatigue and shortness of breath after her most recent episode of Covid about 1 year ago patient would benefit from outpatient pulm eval including pulmonary function testing and sleep apnea/CPAP review. Patient is cleared for weigthbearing with walker by orthopedics. Repeat labs in 2 to 3 days. Serum Vit D 25 pending. Would recommend follow up with psychiatry and [facility] on disharge. Hospital Course This is a 67 year old female with medical history of asthma, sleep apnea with CPAP use, hyperlipidemia, hypertension, diabetes mellitus, thyroid disorder anxiety depression. Patient came in for complaints of week long history of weakness and fatigue as well as chest pain in the mid sternum radiating to the left arm and jaw which has been ongoing for the last few days. Patient waited it out at home and pain was not improving, also reports associated dizziness, light headedness and diaphoresis. Patient denies any fever or chills, no cough. Does have a history of cardiac catheterization with no prior stenting reported. Has strong family history of coronary artery disease, all 5 of her brothers have underwent coronary bypass. Work up reveals normal hemoglobin 12.0, white count normal. D-Dimer is normal at 0.29, normal kidney function, troponin level negative x 3 and proBNP level of 20. Urinalysis is negative. TSH is normal at 1.130. Patient will be admitted in observation and cardiology has been consulted. Patient underwent dobutamine stress echo which was negative, echocardiogram reveals an EF 55-60% and cannot exclude a PFO with left to right shunting. Cardiology has cleared the patient to follow up in the office. Patient was to be discharged home however after walking back to the bathroom patient had an episode of staring off into space and noted to have a left facial droop and also some left-sided weakness. Patient also has bilateral lower extremity weakness. A code stroke was called and patient had brain CT which was negative. Interventional neurologist recommening TPA which patient received and was monitored in the intensive care unit. Patient had a brain CTA done showing approximately 50% stenosis of the bilateral carotid bifurcation secondary to calcified plaque. No evidence of dissecation of the cervical internal carotid arteries or vertebral arteries. No evidence of intracranial high grade stenosis of intracranial aneurysm. 24 hour f/u brain CT after TPA is negative. Patient had EEG which is negative for seizure activity. Brain MRI shows no evidence of intracranial mass or acute/subacute infarct. There is nonspecific white matter changes likely secondary to small vessel ischemic disease. Neurology has rule out acute stroke at this time. There is also mention of a transient episode nature fibrillation during the brain CT on the bedside monitor however there has been no signs of afib noted on cardiac telemetry before and after this episode and assisted living assistant was reconsulted and did not mention on the posible afib. Patient will be offered a 2 week event monitor to wear and f/u with cardiology as above. Due to the lower extremity weakness that was persistent over 48 hours patient had a thoracic cervical and lumbar spine MRI completed, cervical and and lumbar MRI showing degenerative disc disease with multilevel central stenosis, thoracic MRI today which reveals degraded exam secondary to motion there is no evidence for abnormal cord signal in no abnormal postcontrast enhancement the neural foramen and spinal canal or pain vertebral levels in the spine may have extradural defects as described in the final report there is no abnormal postcontrast enhancement. Was evaluated by Dr. Quiroz and there is concern for L3 to L5 moderate central canal stenosis as well as degenerative disc disease lumbar spondylosis and cervical spine spondylosis. Current recommendations are for conservative management with pain medication, IV steroids and PT OT and they will follow-up with patient outpatient. Again patient is recommended on discharge to follow-up with pulmonary services for full pulmonary function testing and that sleep study to review her CPAP settings. Currently denying chest pain, denying shortness of breath, does report fatigue. No n/v/d patient is tolerating diet. Lungs are clear S1 S2 auscultated abdomen is soft and nontender focal neurological exam is negative. Patients most recent labs show unremarkable CBC, electrolytes are normal, glucose in the 100s. Lipid panel showing triglycerides of 118, cholesterol 90, LDL 28 and HDL 38. Vitamin B-12 was 355, folate 17, hemoglobin A1c 6.2. Hemodynamically stable Please see medication reconciliation for a list of current medication. Thank you for allowing us to participate in the care of this patient. The impression and plan of care has been dictated by Ashley Kendrick Nurse Practitioner as directed. Dr. Fatmata MD I have performed a history and physical examination and medical decision making of this patient, discussed the same with the dictator, and agree with the dictators assessment and plan as written, documented as a scribe. Based on total visit time, I have performed more than 50% of this visit. Patient Condition at Discharge: Stable Plan - Discharge Summary New Discharge Prescriptions: New Nystatin 100,000 Unit/gm Powd [Mycostatin Powder] 1 applic TOPICAL TID #1 each INSULIN ASPART (NovoLOG) [NovoLOG (formulary)] 0 unit SQ ACHS each Acetaminophen Tab [Tylenol] 650 mg PO Q6HR PRN tab PRN Reason: Fever And/ Or Pain Continue Atorvastatin [Lipitor] 80 mg PO HS Levothyroxine Sodium 150 mcg PO DAILY Albuterol Sulfate [Ventolin HFA] 2 puff INHALATION RT-Q4H PRN PRN Reason: Shortness Of Breath Aspirin 81 mg PO DAILY chew Fluticasone Nasal [place] [Flonase Nasal [place]] 1 spray EA NOSTRIL DAILY PRN PRN Reason: Allergy Symptoms Nystatin 100,000Unit/gm Cream [Mycostatin Cream] 1 applic TOPICAL BID Potassium Chloride ER [K-Dur 10] 10 meq PO DAILY Furosemide [Lasix] 40 mg PO DAILY lamoTRIgine [lamoTRIgine ER] 50 mg PO HS lamoTRIgine [lamoTRIgine ER] 100 mg PO HS Pantoprazole [Protonix] 40 mg PO DAILY Melatonin 5 mg PO HS metFORMIN HCL ER [Glucophage XR] 1,000 mg PO BID [place] Carbonate [[place] Carbonate ER] 300 mg PO HS Discontinued Valsartan 80 mg PO HS Omeprazole 20 mg PO DAILY Discharge Medication List Atorvastatin [Lipitor] 80 mg PO HS 01/22/18 [History] Levothyroxine Sodium 150 mcg PO DAILY 01/22/18 [History] Albuterol Sulfate [Ventolin HFA] 2 puff INHALATION RT-Q4H PRN 10/10/19 [History] Aspirin 81 mg PO DAILY chew 10/15/19 [Rx] Fluticasone Nasal [place] [Flonase Nasal [place]] 1 spray EA NOSTRIL DAILY PRN 04/27/20 [History] Furosemide [Lasix] 40 mg PO DAILY 04/27/20 [History] Nystatin 100,000Unit/gm Cream [Mycostatin Cream] 1 applic TOPICAL BID 04/27/20 [History] Potassium Chloride ER [K-Dur 10] 10 meq PO DAILY 04/27/20 [History] lamoTRIgine [lamoTRIgine ER] 50 mg PO HS 10/06/21 [History] lamoTRIgine [lamoTRIgine ER] 100 mg PO HS 10/06/21 [History] [place] Carbonate [[place] Carbonate ER] 300 mg PO HS 09/16/22 [History] Melatonin 5 mg PO HS 09/16/22 [History] Pantoprazole [Protonix] 40 mg PO DAILY 09/16/22 [History] metFORMIN HCL ER [Glucophage XR] 1,000 mg PO BID 09/16/22 [History] Nystatin 100,000 Unit/gm Powd [Mycostatin Powder] 1 applic TOPICAL TID #1 each 09/18/22 [Rx] Acetaminophen Tab [Tylenol] 650 mg PO Q6HR PRN tab 09/23/22 [Rx] INSULIN ASPART (NovoLOG) [NovoLOG (formulary)] 0 unit SQ ACHS each 09/23/22 [Rx] Follow up Appointment(s)/Referral(s): Yael Reyes MD [STAFF PHYSICIAN] - 1 Week (office not answering Please call to schedule appointment ) Jacki Carr DO [Primary Care Provider] - 09/25/22 11:20 am [facility], [NON-STAFF] - As Needed Ainsley Massey MD [Medical Doctor] - 1 Week (Patient to decide where want to go. Please call to schedule appointment ) Sarath Nair DO [Doctor of Osteopathic Medicine] - 1 Week (office phone not answerring Please call to schedule appointment for DDD and multilevel central stenosis) [facility] [NON-STAFF] - 1 Week Verena Robles MD [STAFF PHYSICIAN] - 1 Week Ambulatory/Diagnostic Orders: Basic Metabolic Panel [LAB.AMB] Time Frame: 3 Days, Location: None Selected Complete Blood Count w/diff [LAB.AMB] Time Frame: 3 Days, Location: None Selected Activity/Diet/Wound Care/Special Instructions: Recommend to follow up with orthopedics outpatient patient can ambulate with a walker has been cleared for weightbearing by orthopedics Patient is to follow-up with her neurologist on discharge within 1-[address] Massey has been recommended however patient may to the neurologist at her discretion Recommend to follow up with Dr. Robles on discharge for pulmonary function testing and evaluation of sleep apnea/CPAP use Patient to follow up with DR. ANTONIO Reyes in 1 to 2 weeks Valsartan discontinued due to low normal blood pressures Repeat labs in 2 to 3 days Recommend follow up at [facility] Discharge Disposition: TRANSFER TO SNF/ECF
== END 2022-09-23 16:57 | DRG 880 ==
LOC: SUPCPDRO 13:32 → EC 13:32 → 6NMEDSUR 16:14 → 2SICU 09-18 13:25 → OBSVTOIN 09-18 13:42 → 3SCARD 09-20 15:18 → 4SSUR 09-22 23:22
PROVIDERS: ADMIT Hospitalist; ATTEND Hospitalist
DX: F44.4 Conversion disorder with motor symptom or deficit (principal); Z68.44 Body mass index [BMI] 60.0-69.9, adult; Q21.12 Patent foramen ovale; R47.01 Aphasia; G51.0 Bell's palsy; E11.42 Type 2 diabetes mellitus with diabetic polyneuropathy; I48.91 Unspecified atrial fibrillation; F31.9 Bipolar disorder, unspecified; E66.01 Morbid (severe) obesity due to excess calories; F60.3 Borderline personality disorder; I10 Essential (primary) hypertension; J45.909 Unspecified asthma, uncomplicated; E03.9 Hypothyroidism, unspecified; I65.23 Occlusion and stenosis of bilateral carotid arteries; F45.8 Other somatoform disorders; R53.82 Chronic fatigue, unspecified; R60.0 Localized edema; M48.061 Spinal stenosis, lumbar region without neurogenic claudication; M47.816 Spondylosis without myelopathy or radiculopathy, lumbar region; E78.5 Hyperlipidemia, unspecified; R03.1 Nonspecific low blood-pressure reading; G47.33 Obstructive sleep apnea (adult) (pediatric); R00.1 Bradycardia, unspecified; M47.812 Spondylosis without myelopathy or radiculopathy, cervical region; G43.909 Migraine, unspecified, not intractable, without status migrainosus; F41.9 Anxiety disorder, unspecified; M51.36 Other intervertebral disc degeneration, lumbar region; K64.9 Unspecified hemorrhoids; M50.31 Other cervical disc degeneration, high cervical region; R07.9 Chest pain, unspecified; Z91.199 Patient's noncompliance with other medical treatment and regimen due to unspecified reason; Z79.84 Long term (current) use of oral hypoglycemic drugs; Z86.16 Personal history of COVID-19; I25.2 Old myocardial infarction; Z79.899 Other long term (current) drug therapy; Z79.890 Hormone replacement therapy; Z79.82 Long term (current) use of aspirin; Z88.1 Allergy status to other antibiotic agents; Z82.49 Family history of ischemic heart disease and other diseases of the circulatory system; Z82.3 Family history of stroke
CPT/HCPCS: 36415; 70450; 70496; 70498; 70551; 71046; 72156; 72157; 72158; 80048; 80053; 80061; 80175; 80178; 81003; 82607; 82652; 82746; 83036; 83690; 83735; 83880; 84443; 84484; 85025; 85379; 85610; 85730; 93005; 93306; 93351; 94760; 95816; 96361; 96374; 99285

== ENCOUNTER 2022-11-20 12:50 | Inpatient (IN) | payer MEDICARE, OTHER ==
--- NOTE | 2022-11-20 13:23 | ED ---
Psych HPI - General Source: patient, EMS, RN notes reviewed Mode of arrival: EMS Limitations: no limitations <Mitchell Goodwin - Last Filed: 11/20/22 13:21> <Grayson Beverly - Last Filed: 11/20/22 20:21> - General Chief Complaint: Psychiatric Symptoms Stated Complaint: Suicidal Time Seen by Provider: 11/20/22 13:21 - History of Present Illness Initial Comments: 67-year-old female presents emergency department via EMS from [facility] for psychiatric evaluation. Patient states she is depressed, suicidal. Patient was sent over here for further evaluation possible admission. (iMtchell Goodwin) Dictation was produced using [employer] dictation software. please excuse any grammatical, word or spelling errors. Chief Complaint: 67-year-old female presents with suicidal attempt and suicidal ideation History of Present Illness: 67-year-old female states that she is suicidal. She attempted to kill herself yesterday. She took 8 500 mg tablets sometime in the morning yesterday. She presents today because she is depressed and still contemplate suicide. Patient denies any medical complaint. The ROS documented in this emergency department record has been reviewed and confirmed by me. Those systems with pertinent positive or negative responses have been documented in the HPI. All other systems are other negative and/or noncontributory. (Grayson Beverly) - Related Data Home Medications Medication Instructions Recorded Confirmed Atorvastatin [Lipitor] 80 mg PO HS 01/22/18 11/20/22 Levothyroxine Sodium 150 mcg PO DAILY 01/22/18 11/20/22 Albuterol Sulfate [Ventolin HFA] 2 puff INHALATION RT-Q4H PRN 10/10/19 11/20/22 Furosemide [Lasix] 40 mg PO DAILY 04/27/20 11/20/22 Potassium Chloride ER [K-Dur 10] 10 meq PO DAILY 04/27/20 11/20/22 lamoTRIgine [lamoTRIgine ER] 50 mg PO HS 10/06/21 11/20/22 lamoTRIgine [lamoTRIgine ER] 100 mg PO HS 10/06/21 11/20/22 [place] Carbonate [[place] 300 mg PO HS 09/16/22 11/20/22 Carbonate ER] Melatonin 5 mg PO HS 09/16/22 11/20/22 Pantoprazole [Protonix] 40 mg PO DAILY 09/16/22 11/20/22 metFORMIN HCL ER [Glucophage XR] 1,000 mg PO BID 09/16/22 11/20/22 Fluticasone Nasal [place] [Flonase 1 - 2 spray EA NOSTRIL DAILY PRN 11/20/22 11/20/22 Nasal [place]] INSULIN ASPART (NovoLOG) [NovoLOG See Protocol SQ ACHS 11/20/22 11/20/22 (formulary)] LORazepam [Ativan] 0.5 mg PO BID PRN 11/20/22 11/20/22 [place] Carbonate 150 mg PO HS 11/20/22 11/20/22 Vortioxetine Hydrobromide 5 mg PO DAILY 11/20/22 11/20/22 [Trintellix] Previous Rx's Medication Instructions Recorded Aspirin 81 mg PO DAILY chew 10/15/19 Acetaminophen Tab [Tylenol] 650 mg PO Q6HR PRN tab 09/23/22 Allergies Allergy/AdvReac Type Severity Reaction Status Date / Time sulfamethoxazole Allergy Unknown Rash/Hives, Verified 11/20/22 17:19 [From Bactrim] SOB trimethoprim [From Bactrim] Allergy Unknown Rash/Hives, Verified 11/20/22 17:19 SOB Review of Systems ROS Other: All systems not noted in ROS Statement are negative. <Mitchell Goodwin - Last Filed: 11/20/22 13:21> ROS Other: All systems not noted in ROS Statement are negative. <Grayson Beverly - Last Filed: 11/20/22 20:21> ROS Statement: Those systems with pertinent positive or pertinent negative responses have been documented in the HPI. 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 Past Anesthesia/Blood Transfusion Reactions: Family History of Problems w/ Anesthesia, Motion Sickness Additional Past Anesthesia/Blood Transfusion Reaction / Comment(s): clausterphobia. pt's sister had diff breathing from anesthesia Past Psychological History: Anxiety, Depression, Panic Disorder Smoking Status: Never smoker Past Alcohol Use History: None Reported Past Drug Use History: None Reported - Past Family History Son(s) Additional Family Medical History / Comment(s): She has 2 sons with no major medical problems. Patient does not have any daughters. Mother Additional Family Medical History / Comment(s): Mother at age 80 from renal failure. Father Additional Family Medical History / Comment(s): Father at age 67 with history of SC and stroke Brother(s) Family Medical History: Cancer Additional Family Medical History / Comment(s): She has total of 5 brothers and all had history of coronary artery disease and CABG, hypertension, hyperlipidemia, diabetes. Sister(s) Family Medical History: Cancer Additional Family Medical History / Comment(s): one sister of colon cancer, second sister had ovarian cancer <Mitchell Goodwin - Last Filed: 11/20/22 13:21> General Exam Limitations: no limitations General appearance: alert, in no apparent distress Head exam: Present: atraumatic, normocephalic, normal inspection <Mitchell Goodwin - Last Filed: 11/20/22 13:21> <Grayson Beverly - Last Filed: 11/20/22 20:21> - General Exam Comments Initial Comments: Visual Physical Exam Vital signs reviewed General: Well-appearing, nontoxic, no acute distress. Head: Normocephalic, atraumatic Eyes: PERRLA, EOMI ENT: Airway patent Chest: Nonlabored breathing Skin: No visual rash, normal skin tone Neuro: Alert and oriented 3 Musculoskeletal: No gross abnormalities (Mitchell Goodwin) PHYSICAL EXAM: General Impression: Alert and oriented x3, not in acute distress HEENT: Normocephalic atraumatic, extra-ocular movements intact, pupils equal and reactive to light bilaterally, mucous membranes moist. Cardiovascular: Heart regular rate and rhythm Chest: Able to complete full sentences, no retractions, no tachypnea Abdomen: abdomen soft, non-tender, non-distended, no organomegaly Musculoskeletal: Pulses present and equal in all extremities, no peripheral edema Motor: no focal deficits noted Neurological: CN II-XII grossly intact, no focal motor or sensory deficits noted Skin: Intact with no visualized rashes Psych: Normal affect and mood (Grayson Beverly) Course <Grayson Beverly - Last Filed: 11/20/22 20:21> Vital Signs 11/20/22 13:01 Temperature 98 F Pulse Rate 64 Respiratory 16 Rate Blood Pressure 151/74 O2 Sat by Pulse 95 Oximetry - Reevaluation(s) Reevaluation #1: 11/20/22 17:53 Laboratory evaluation obtained. CBC, metabolic panel is unremarkable. No acidosis. Tox labs are negative. Tylenol level is negative. Patient medically cleared for EPS evaluation (Grayson Beverly) Medical Decision Making <Mitchell Goodwin - Last Filed: 11/20/22 13:21> - Lab Data Result diagrams: 11/20/22 16:01 11/20/22 16:01 <Grayson Beverly - Last Filed: 11/20/22 20:21> - Medical Decision Making I performed a quick note portion of this chart signed Mitchell Goodwin PA-C (Mitchell Goodwin) Was pt. sent in by a medical professional or institution ([facility], [facility], urgent care, hospital, or intermediate...) When possible be specific @ -No Did you speak to anyone other than the patient for history (EMS, parent, family, police, friend...)? What history was obtained from this source @ -No Did you review nursing and triage notes (agree or disagree)? Why? @ -I reviewed and agree with nursing and triage notes Were old charts reviewed (outside hosp., previous admission, EMS record, old EKG, old radiological studies, urgent care reports/EKG's, intermediate records)? Report findings @ -No old charts were reviewed Differential Diagnosis (chest pain, altered mental status, abdominal pain women, abdominal pain men, vaginal bleeding, musculoskeletal, weakness, fever, dyspnea, syncope, headache, dizziness, GI bleed, back pain, seizure, CVA, palpatations, mental health)? @ -Differential Mental Health: Depression, anxiety, bipolar, psychosis, schizophrenia, borderline personality, situational depression, adjustment disorder, behavioral disorder, brain tumor, malingering, substance abuse, encephalopathy, medication reaction, dementia, hypothyroidism, degenerative neurologic disorder, lupus.... This is not meant to be all-inclusive list EKG interpreted by me (3pts min.). @ -None done X-rays interpreted by me (1pt min.). @ -None done CT interpreted by me (1pt min.). @ -None done U/S interpreted by me (1pt. min.). @ -None done What testing was considered but not performed or refused? (CT, X-rays, U/S, labs)? Why? @ -None What meds were considered but not given or refused? Why? @ -None Did you discuss the management of the patient with other professionals (sherley goldstein i.e. , PA, TILESET[facility], lab, RT, psych nurse, director social service, territory sales manager medical, teacher, purchasing officer, family independence case manager)? Give summary @ -discussed with EPS nurse who recommends inpatient psych admission Was smoking cessation discussed for >3mins.? @ -No Was critical care preformed (if so, how long)? @ -No Were there social determinants of health that impacted care today? How? (Homelessness, low income, unemployed, alcoholism, drug addiction, transportation, low edu. Level, literacy, decrease access to med. care, correction, rehab)? @ -No Was there de-escalation of care discussed even if they declined (Discuss DNR or withdrawal of care, Hospice)? DNR status @ -No What co-morbidities impacted this encounter? (DM, HTN, Smoking, COPD, CAD, Cancer, CVA, ARF, Chemo, Hep., AIDS, mental health diagnosis, sleep apnea, morbid obesity)? @ -None Was patient admitted / discharged? Hospital course, mention meds given and route, prescriptions, significant lab abnormalities, going to OR and other pertinent info. @ -67-year-old female presents emergency department for suicidal attempt. Vital signs stable. Patient did not take a toxic dose. Furthermore she did the Tylenol yesterday. Vital signs stable. Patient physical examination is benign. Labs are unremarkable. Patient evaluated by EPS nurse and will be admitted to inpatient psychiatric unit. Undiagnosed new problem with uncertain prognosis? @ -No Drug Therapy requiring intensive monitoring for toxicity (Heparin, Nitro, Insulin, Cardizem)? @ -No Were any procedures done? @ -No Diagnosis/symptom? Acute, or Chronic, or Acute on Chronic? Uncomplicated (without systemic symptoms) or Complicated (systemic symptoms)? @ -Suicidal ideation, suicidal behavior Side effects of treatment? @ -No Exacerbation, Progression, or Severe Exacerbation? @ -No Poses a threat to life or bodily function? How? (Chest pain, USA, SC, pneumonia, PE, COPD, DKA, ARF, appy, cholecystitis, CVA, Diverticulitis, Homicidal, Suicidal, threat to staff... and all critical care pts) @ -yes (Grayson Beverly) - Lab Data Lab Results 11/20/22 11/20/22 11/20/22 Range/Units 16:01 16:01 16:01 WBC 11.3 H (3.8-10.6) k/uL RBC 4.51 (3.80-5.40) m/uL Hgb 12.3 (11.4-16.0) gm/dL Hct 38.9 (34.0-46.0) % MCV 86.3 (80.0-100.0) fL MCH 27.3 (25.0-35.0) pg MCHC 31.6 (31.0-37.0) g/dL RDW 13.4 (11.5-15.5) % Plt Count 343 (150-450) k/uL MPV 10.7 Neutrophils % 72 % Lymphocytes % 19 % Monocytes % 5 % Eosinophils % 2 % Basophils % 1 % Neutrophils # 8.1 H (1.3-7.7) k/uL Lymphocytes # 2.2 (1.0-4.8) k/uL Monocytes # 0.6 (0-1.0) k/uL Eosinophils # 0.2 (0-0.7) k/uL Basophils # 0.1 (0-0.2) k/uL Hypochromasia Slight Sodium 139 (137-145) mmol/L Potassium 4.0 (3.5-5.1) mmol/L Chloride 107 (98-107) mmol/L Carbon Dioxide 21 L (22-30) mmol/L Anion Gap 11 mmol/L BUN 20 H (7-17) mg/dL Creatinine 1.26 H (0.52-1.04) mg/dL Est GFR (CKD-EPI)AfAm 52 (>60 ml/min/1.73 sqM) Est GFR (CKD-EPI)NonAf 45 (>60 ml/min/1.73 sqM) Glucose 152 H (74-99) mg/dL Calcium 9.5 (8.4-10.2) mg/dL Total Bilirubin 0.7 (0.2-1.3) mg/dL AST 22 (14-36) U/L ALT 16 (4-34) U/L Alkaline Phosphatase 55 (38-126) U/L Total Protein 6.9 (6.3-8.2) g/dL Albumin 4.2 (3.5-5.0) g/dL Urine Color Urine Appearance (Clear) Urine pH (5.0-8.0) Ur Specific [place] (1.001-1.035) Urine Protein (Negative) Urine Glucose (UA) (Negative) Urine Ketones (Negative) Urine Blood (Negative) Urine Nitrite (Negative) Urine Bilirubin (Negative) Urine Urobilinogen (<2.0) mg/dL Ur Leukocyte Esterase (Negative) Urine RBC (0-5) /hpf Urine WBC (0-5) /hpf Ur Squamous Epith Cells (0-4) /hpf Hyaline Casts (0-2) /lpf Urine Mucus (None) /hpf Salicylates <1.0 mg/dL Urine Opiates Screen (NotDetected) Ur Oxycodone Screen (NotDetected) Urine Methadone Screen (NotDetected) Ur Propoxyphene Screen (NotDetected) Acetaminophen <10.0 ug/mL Ur Barbiturates Screen (NotDetected) U Tricyclic Antidepress (NotDetected) Ur Phencyclidine Scrn (NotDetected) Ur Amphetamines Screen (NotDetected) U Methamphetamines Scrn (NotDetected) U Benzodiazepines Scrn (NotDetected) Urine Cocaine Screen (NotDetected) U Marijuana (THC) Screen (NotDetected) Coronavirus (PCR) Not Detected (Not Detectd) 11/20/22 Range/Units 16:13 WBC (3.8-10.6) k/uL RBC (3.80-5.40) m/uL Hgb (11.4-16.0) gm/dL Hct (34.0-46.0) % MCV (80.0-100.0) fL MCH (25.0-35.0) pg MCHC (31.0-37.0) g/dL RDW (11.5-15.5) % Plt Count (150-450) k/uL MPV Neutrophils % % Lymphocytes % % Monocytes % % Eosinophils % % Basophils % % Neutrophils # (1.3-7.7) k/uL Lymphocytes # (1.0-4.8) k/uL Monocytes # (0-1.0) k/uL Eosinophils # (0-0.7) k/uL Basophils # (0-0.2) k/uL Hypochromasia Sodium (137-145) mmol/L Potassium (3.5-5.1) mmol/L Chloride (98-107) mmol/L Carbon Dioxide (22-30) mmol/L Anion Gap mmol/L BUN (7-17) mg/dL Creatinine (0.52-1.04) mg/dL Est GFR (CKD-EPI)AfAm (>60 ml/min/1.73 sqM) Est GFR (CKD-EPI)NonAf (>60 ml/min/1.73 sqM) Glucose (74-99) mg/dL Calcium (8.4-10.2) mg/dL Total Bilirubin (0.2-1.3) mg/dL AST (14-36) U/L ALT (4-34) U/L Alkaline Phosphatase (38-126) U/L Total Protein (6.3-8.2) g/dL Albumin (3.5-5.0) g/dL Urine Color Yellow Urine Appearance Cloudy H (Clear) Urine pH 5.5 (5.0-8.0) Ur Specific [place] 1.031 (1.001-1.035) Urine Protein 1+ H (Negative) Urine Glucose (UA) Negative (Negative) Urine Ketones Negative (Negative) Urine Blood Negative (Negative) Urine Nitrite Negative (Negative) Urine Bilirubin 1+ H (Negative) Urine Urobilinogen 2.0 (<2.0) mg/dL Ur Leukocyte Esterase Small H (Negative) Urine RBC 1 (0-5) /hpf Urine WBC 7 H (0-5) /hpf Ur Squamous Epith Cells 6 H (0-4) /hpf Hyaline Casts 6 H (0-2) /lpf Urine Mucus Many H (None) /hpf Salicylates mg/dL Urine Opiates Screen Not Detected (NotDetected) Ur Oxycodone Screen Not Detected (NotDetected) Urine Methadone Screen Not Detected (NotDetected) Ur Propoxyphene Screen Not Detected (NotDetected) Acetaminophen ug/mL Ur Barbiturates Screen Not Detected (NotDetected) U Tricyclic Antidepress Not Detected (NotDetected) Ur Phencyclidine Scrn Not Detected (NotDetected) Ur Amphetamines Screen Not Detected (NotDetected) U Methamphetamines Scrn Not Detected (NotDetected) U Benzodiazepines Scrn Not Detected (NotDetected) Urine Cocaine Screen Not Detected (NotDetected) U Marijuana (THC) Screen Not Detected (NotDetected) Coronavirus (PCR) (Not Detectd) Disposition <Mitchell Goodwin M - Last Filed: 11/20/22 13:21> <Grayson Beverly D - Last Filed: 11/20/22 20:21> Clinical Impression: Suicidal behavior Disposition: ADMITTED IP TO THIS HOSP Condition: Fair
[2022-11-20 16:25] LABS: Basophils # (A) 0.1 k/uL (0-0.2); Basophils % (A) 1 %; Eosinophils # (A) 0.2 k/uL (0-0.7); Eosinophils % (A) 2 %; HCT 38.9 % (34.0-46.0); HGB 12.3 gm/dL (11.4-16.0); Hypochromasia Slight; Lymphocytes # (A) 2.2 k/uL (1.0-4.8); Lymphocytes % (A) 19 %; MCH 27.3 pg (25.0-35.0); MCHC 31.6 g/dL (31.0-37.0); MCV 86.3 fL (80.0-100.0); Mean Platelet Volume 10.7; Monocytes # (A) 0.6 k/uL (0-1.0); Monocytes % (A) 5 %; Neutrophils # (A) 8.1 k/uL (1.3-7.7); Neutrophils % (A) 72 %; Platelet Count 343 k/uL (150-450); RBC 4.51 m/uL (3.80-5.40); RDW 13.4 % (11.5-15.5); WBC 11.3 k/uL (3.8-10.6)
[2022-11-20 16:30] LABS: ALT 16 U/L (4-34); AST 22 U/L (14-36); Acetaminophen <10.0 ug/mL; African American GFR (CKD) 52 (>60 ml/min/1.73 sqM); Albumin 4.2 g/dL (3.5-5.0); Alkaline Phosphatase 55 U/L (38-126); Anion Gap 11 mmol/L; Blood Urea Nitrogen 20 mg/dL (7-17); Calcium 9.5 mg/dL (8.4-10.2); Carbon Dioxide 21 mmol/L (22-30); Chloride 107 mmol/L (98-107); Glucose 152 mg/dL (74-99); Non-African American GFR(CKD) 45 (>60 ml/min/1.73 sqM); Salicylate <1.0 mg/dL; Sodium 139 mmol/L (137-145); Total Bilirubin 0.7 mg/dL (0.2-1.3); Total Protein 6.9 g/dL (6.3-8.2)
[2022-11-20 16:35] LABS: Appearance,Urine Cloudy (Clear); Bilirubin,Urine 1+ (Negative); Blood,Urine Negative (Negative); Color,Urine Yellow; Glucose,Urine (UA) Negative (Negative); Hyaline Casts,Urine 6 /lpf (0-2); Ketones,Urine Negative (Negative); Leukocyte Esterase,Urine Small (Negative); Mucus,Urine Many /hpf; Nitrite,Urine Negative (Negative); PH, Urine 5.5 (5.0-8.0); Protein,Urine 1+ (Negative); RBC,Urine 1 /hpf (0-5); Specific Gravity,Urine 1.031 (1.001-1.035); Squamous Epithelial Cell,Urine 6 /hpf (0-4); WBC,Urine 7 /hpf (0-5)
[2022-11-20 16:36] LABS: Amphetamine Screen,Urine Not Detected (NotDetected); Barbiturate Screen,Urine Not Detected (NotDetected); Benzodiazepines Screen,Urine Not Detected (NotDetected); Cocaine Screen,Urine Not Detected (NotDetected); Methadone Screen, Urine Not Detected (NotDetected); Opiate Screen,Urine Not Detected (NotDetected); Oxycodone Screen, Urine Not Detected (NotDetected); Phencyclidine Screen,Urine Not Detected (NotDetected); Tricyclic Antidepressant,Urine Not Detected (NotDetected); Urn Cannabinoid Scrn Not Detected (NotDetected)
[2022-11-20] MEDS ORDERED: MAGNESIUM HYDROXIDE 2,400 MG/30 ML CUP PO PRN (20:37)
[2022-11-20] MEDS ORDERED: ACETAMINOPHEN TAB 325 MG TAB PO PRN (20:37)
[2022-11-20] MEDS ORDERED: MAG HYDROX/AL HYDROX/SIMETH 30 ML CUP PO PRN (20:37)
[2022-11-20] MEDS ORDERED: MELATONIN 5 MG TABLET PO PRN (20:42)
[2022-11-20] MEDS ORDERED: HALOPERIDOL LACTATE 5 MG/ML 1 ML VIAL IM PRN (20:47)
[2022-11-20] MEDS ORDERED: LAMOTRIGINE 100 MG PO SCH (21:00)
[2022-11-20] MEDS ORDERED: lamoTRIgine 25 MG TAB PO SCH (21:30)
[2022-11-20] MEDS: LITHIUM CARBONATE 150 MG CAP PO SCH (21:34)
[2022-11-20] MEDS: ATORVASTATIN 80 MG TAB PO SCH (21:35)
[2022-11-20] MEDS: lamoTRIgine 25 MG TAB PO SCH (21:35)
[2022-11-20] MEDS: LITHIUM CARBONATE 300 MG CAP PO SCH (21:35)
[2022-11-20] MEDS: metFORMIN 500 MG TAB PO SCH (22:36)
[2022-11-21] MEDS: LEVOTHYROXINE 75 MCG TAB PO SCH (06:53)
[2022-11-21] MEDS ORDERED: DEXTROSE 50% SYRINGE 50 ML IVP PRN ×2 (07:16)
[2022-11-21] MEDS ORDERED: metFORMIN 500 MG TAB PO SCH (07:30)
[2022-11-21 07:55] LABS: Glucose,Whole Blood 118 mg/dL (70-110)
[2022-11-21] MEDS: lamoTRIgine 25 MG TAB PO SCH ×2 (08:22→21:59)
[2022-11-21] MEDS: NICOTINE 14MG/24HR PATCH TRANSDERM SCH (08:22)
[2022-11-21] MEDS: metFORMIN 500 MG TAB PO SCH ×2 (08:22→17:47)
[2022-11-21] MEDS: ASPIRIN 81 MG PO SCH (08:23)
[2022-11-21] MEDS: PANTOPRAZOLE 40 MG TABLET PO SCH (08:25)
[2022-11-21] MEDS: INSULIN ASPART (NovoLOG) 100 UNIT/ML VIAL SQ SCH ×4 (08:25→21:58)
[2022-11-21] MEDS: ONDANSETRON 4 MG TAB PO PRN ×2 (08:28→21:59)
[2022-11-21] MEDS ORDERED: VORTIOXETINE HYDROBROMIDE 20 MG TABLET PO SCH ×2 (09:00→10:30)
--- NOTE | 2022-11-21 10:28 | P.HP ---
Psychiatric H&P - . H&P Date: 11/21/22 History & Physical: Allergies Allergy/AdvReac Type Severity Reaction Status Date / Time sulfamethoxazole Allergy Unknown Rash/Hives, Verified 11/20/22 17:19 [From Bactrim] SOB trimethoprim [From Bactrim] Allergy Unknown Rash/Hives, Verified 11/20/22 17:19 SOB Vital Signs Temp 98.7 F 11/21/22 08:27 Pulse 92 11/21/22 08:27 Resp 18 11/20/22 21:44 BP 118/83 11/21/22 08:27 Pulse Ox 96 11/20/22 21:44 FiO2 Intake & Output 11/20/22 11/21/22 11/21/22 18:59 06:59 18:59 Weight 131.723 kg 131.655 kg Laboratory Last Values WBC 11.3 k/uL (3.8-10.6) H 11/20/22 16:01 RBC 4.51 m/uL (3.80-5.40) 11/20/22 16:01 Hgb 12.3 gm/dL (11.4-16.0) 11/20/22 16:01 Hct 38.9 % (34.0-46.0) 11/20/22 16:01 MCV 86.3 fL (80.0-100.0) 11/20/22 16:01 MCH 27.3 pg (25.0-35.0) 11/20/22 16:01 MCHC 31.6 g/dL (31.0-37.0) 11/20/22 16:01 RDW 13.4 % (11.5-15.5) 11/20/22 16:01 Plt Count 343 k/uL (150-450) 11/20/22 16:01 MPV 10.7 11/20/22 16:01 Neutrophils % 72 % 11/20/22 16:01 Lymphocytes % 19 % 11/20/22 16:01 Monocytes % 5 % 11/20/22 16:01 Eosinophils % 2 % 11/20/22 16:01 Basophils % 1 % 11/20/22 16:01 Neutrophils # 8.1 k/uL (1.3-7.7) H 11/20/22 16:01 Lymphocytes # 2.2 k/uL (1.0-4.8) 11/20/22 16:01 Monocytes # 0.6 k/uL (0-1.0) 11/20/22 16:01 Eosinophils # 0.2 k/uL (0-0.7) 11/20/22 16:01 Basophils # 0.1 k/uL (0-0.2) 11/20/22 16:01 Hypochromasia Slight 11/20/22 16:01 Sodium 139 mmol/L (137-145) 11/20/22 16:01 Potassium 4.0 mmol/L (3.5-5.1) 11/20/22 16:01 Chloride 107 mmol/L (98-107) 11/20/22 16:01 Carbon Dioxide 21 mmol/L (22-30) L 11/20/22 16:01 Anion Gap 11 mmol/L 11/20/22 16:01 BUN 20 mg/dL (7-17) H 11/20/22 16:01 Creatinine 1.26 mg/dL (0.52-1.04) H 11/20/22 16:01 Est GFR (CKD-EPI)AfAm 52 (>60 ml/min/1.73 sqM) 11/20/22 16:01 Est GFR (CKD-EPI)NonAf 45 (>60 ml/min/1.73 sqM) 11/20/22 16:01 Glucose 152 mg/dL (74-99) H 11/20/22 16:01 POC Glucose (mg/dL) 118 mg/dL (70-110) H 11/21/22 07:54 POC Glu Chemical Equipment Sales Engineer ID Debby Mccall 11/21/22 07:54 Calcium 9.5 mg/dL (8.4-10.2) 11/20/22 16:01 Total Bilirubin 0.7 mg/dL (0.2-1.3) 11/20/22 16:01 AST 22 U/L (14-36) 11/20/22 16:01 ALT 16 U/L (4-34) 11/20/22 16:01 Alkaline Phosphatase 55 U/L (38-126) 11/20/22 16:01 Total Protein 6.9 g/dL (6.3-8.2) 11/20/22 16:01 Albumin 4.2 g/dL (3.5-5.0) 11/20/22 16:01 Urine Color Yellow 11/20/22 16:13 Urine Appearance Cloudy (Clear) H 11/20/22 16:13 Urine pH 5.5 (5.0-8.0) 11/20/22 16:13 Ur Specific [place] 1.031 (1.001-1.035) 11/20/22 16:13 Urine Protein 1+ (Negative) H 11/20/22 16:13 Urine Glucose (UA) Negative (Negative) 11/20/22 16:13 Urine Ketones Negative (Negative) 11/20/22 16:13 Urine Blood Negative (Negative) 11/20/22 16:13 Urine Nitrite Negative (Negative) 11/20/22 16:13 Urine Bilirubin 1+ (Negative) H 11/20/22 16:13 Urine Urobilinogen 2.0 mg/dL (<2.0) 11/20/22 16:13 Ur Leukocyte Esterase Small (Negative) H 11/20/22 16:13 Urine RBC 1 /hpf (0-5) 11/20/22 16:13 Urine WBC 7 /hpf (0-5) H 11/20/22 16:13 Ur Squamous Epith Cells 6 /hpf (0-4) H 11/20/22 16:13 Hyaline Casts 6 /lpf (0-2) H 11/20/22 16:13 Urine Mucus Many /hpf (None) H 11/20/22 16:13 Salicylates <1.0 mg/dL 11/20/22 16:01 Urine Opiates Screen Not Detected (NotDetected) 11/20/22 16:13 Ur Oxycodone Screen Not Detected (NotDetected) 11/20/22 16:13 Urine Methadone Screen Not Detected (NotDetected) 11/20/22 16:13 Ur Propoxyphene Screen Not Detected (NotDetected) 11/20/22 16:13 Acetaminophen <10.0 ug/mL 11/20/22 16:01 Ur Barbiturates Screen Not Detected (NotDetected) 11/20/22 16:13 U Tricyclic Antidepress Not Detected (NotDetected) 11/20/22 16:13 Ur Phencyclidine Scrn Not Detected (NotDetected) 11/20/22 16:13 Ur Amphetamines Screen Not Detected (NotDetected) 11/20/22 16:13 U Methamphetamines Scrn Not Detected (NotDetected) 11/20/22 16:13 U Benzodiazepines Scrn Not Detected (NotDetected) 11/20/22 16:13 Urine Cocaine Screen Not Detected (NotDetected) 11/20/22 16:13 U Marijuana (THC) Screen Not Detected (NotDetected) 11/20/22 16:13 Coronavirus (PCR) Not Detected (Not Detectd) 11/20/22 16:01 11/21/22 10:18 This is psychiatric evaluation on Belinda who is a 67-year-old female and was hospitalized for suicidal ideations Patient reports that she's been getting increasingly depressed over the last several months She states that she feels useless and a burden on everyone She states that she currently lives with her 2 sons were very supportive and she feels like she is hampering everybody's lifestyle She says that she has multiple issues including her health is failing and al though she ambulates with a cane or a walker that she is morbidly obese and has difficulty getting around She says that 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 [employer] but that that was a long time ago She stated that she is from her long time ago also She denies any specific triggers at this time Patient was referred to the hospital when she was talking to her therapist and had broken down with her depression and suicidal ideations Patient's current psychotropic medications include Lamotrigine [place] carbonate vortioxetine which she claims that she's been taking it regularly ALLERGIES: Allergy/AdvReac Type Severity Reaction Status Date / Time sulfamethoxazole Allergy Unknown Rash/Hives, Verified 11/20/22 17:19 [From Bactrim] SOB trimethoprim [From Bactrim] Allergy Unknown Rash/Hives, Verified 11/20/22 17:19 Past Medical History: Asthma, Chest Pain / Angina, Diabetes Mellitus, GERD/Reflux, Hyperlipidemia, Sleep Apnea/CPAP/BIPAP, Thyroid Disorder Additional Past Medical History / Comment(s): freddy-not using her cpap machine anemia, chest pain "from anxiety", sometimes low BP, occ palpitations, diverticulosis, kidney stone, "leaky heart valve".fall in broke rib on rt side, 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 Past Anesthesia/Blood Transfusion Reactions: Family History of Problems w/ Anesthesia, Motion Sickness Additional Past Anesthesia/Blood Transfusion Reaction / Comment(s): clausterphobia. pt's sister had diff breathing from anesthesia Past Psychological History: Anxiety, Depression, Panic Disorder Smoking Status: Never smoker Past Alcohol Use History: None Reported Past Drug Use History: None Reported Mental Status Exam: General Appearance: A very heavy set female wearing hospital gown and sitting in a wheelchair Behavior: Patient is calmly seated without any agitated behavior. She appears calm and relaxed but became emotional as the interview continued Speech: Patient's speech is fluent and non-pressured where she was very soft spoken and at times could be barely heard Mood/Affect: Mood is downcast affect is congruent Suicidality/Homicidality: Admits feeling helpless and hopeless but denies any active plan at this time Perceptions: Patient denies any visual hallucinations and denies auditory hallucinations. Memory and concentration: AOX3, grossly intact for the purposes of this session Judgment and insight: Impaired Self-esteem and confidence are poor Diagnostic impression: Major depressive disorder recurrent chronic with acute exacerbation Rule out pervasive persistent depressive disorder/dysthymia Somatoform disorder unspecified Plan: -Patient is admitted under voluntary status to [facility]HU for stabilization of psychiatric symptoms and safety. Patient has signed adult voluntary form and medication consent and is placed in patient's chart. -Medications: We will continue lamotrigine 75 mg twice a day Trintillix increased to 10 mg daily the goal will be to raise it up to 20 mg a day [place] carbonate 450 mg daily -SW on board for discharge planning. Encourage patient to participate in groups to work on coping skills. Jovan Dowell M.D.
[2022-11-21] MEDS ORDERED: VORTIOXETINE HYDROBROMIDE 20 MG TABLET PO ONE (10:45)
[2022-11-21 12:29] LABS: Glucose,Whole Blood 106 mg/dL (70-110)
[2022-11-21 17:43] LABS: Glucose,Whole Blood 115 mg/dL (70-110)
[2022-11-21] MEDS: ATORVASTATIN 80 MG TAB PO SCH (21:59)
[2022-11-21 22:09] LABS: Glucose,Whole Blood 118 mg/dL (70-110)
[2022-11-21] MEDS: LITHIUM CARBONATE 300 MG CAP PO SCH (22:10)
[2022-11-21] MEDS: LITHIUM CARBONATE 150 MG CAP PO SCH (22:10)
[2022-11-22] MEDS: LEVOTHYROXINE 75 MCG TAB PO SCH (06:30)
--- NOTE | 2022-11-22 06:58 | P.CONS ---
History of Present Illness - Reason for Consult Consult date: 11/21/22 - History of Present Illness This is a 67 year old female with medical history of asthma, sleep apnea with CPAP use, hyperlipidemia, hypertension, diabetes mellitus, thyroid disorder, anxiety depression, [place] palsy, Hx of covid and chronic fatigue. Does have a history of cardiac catheterization with no prior stenting reported. Has strong family history of coronary artery disease, all 5 of her brothers have underwent coronary bypass. Patient comes to the hospital with complaints of suicide attempt on the patient was sent in by [facility]. Patient endorses worsening feelings of depression over the last several months. She lives with her sons who help care for her. Patient feels like she is a burden on her family. Reports compliance with her current medications including; lithium carbonate, lamictal and trintellix. Patient was recently hospitalized for cardiac work up and underwent psychiatric evaluation during that hospital stay. REVIEW OF SYSTEMS: CONSTITUTIONAL: No fever, no malaise, no fatigue. HEENT: No recent visual problems or hearing problems. Denied any sore throat. CARDIOVASCULAR: No chest pain, orthopnea, PND, no palpitations, no syncope. PULMONARY: No shortness of breath, no cough, no hemoptysis. GASTROINTESTINAL: No diarrhea, no nausea, no vomiting, no abdominal pain. NEUROLOGICAL: No headaches, no weakness, no numbness. HEMATOLOGICAL: Denies any bleeding or petechiae. GENITOURINARY: Denies any burning micturition, frequency, or urgency. MUSCULOSKELETAL/RHEUMATOLOGICAL: Denies any joint pain, swelling, or any muscle pain. ENDOCRINE: Denies any polyuria or polydipsia. The rest of the 14-point review of systems is negative. PHYSICAL EXAMINATION: GENERAL: The patient is alert and oriented x3, not in any acute distress. Well developed, well nourished. HEENT: Pupils are round and equally reacting to light. EOMI. No scleral icterus. No conjunctival pallor. Normocephalic, atraumatic. No pharyngeal erythema. No thyromegaly. CARDIOVASCULAR: S1 and S2 present. No murmurs, rubs, or gallops. PULMONARY: Chest is clear to auscultation, no wheezing or crackles. ABDOMEN: Soft, nontender, nondistended, normoactive bowel sounds. No palpable organomegaly. MUSCULOSKELETAL: No joint swelling or deformity. EXTREMITIES: No cyanosis, clubbing, or pedal edema. NEUROLOGICAL: Gross neurological examination did not reveal any focal deficits. SKIN: No rashes. Assessment Depression /with suicidal ideation and attempt L3 to L5 moderate central canal stenosis and DDD/lumbar spondylosis Thyroid disorder Hx of COVID x3 with chronic fatigue since Hx hypertension Hx hyperlipidemia Diabetes Mellitus type 2 Sleep apnea with CPAP use Anxiety/Depression Hx of left sided Kelly's Palsy Hx Borderline personality disorder Morbid Obesity GI prophylaxis DVT prophylaxis Full Code Plan Hold Metformin and Losartan repeat BMP monitor creatinine Continue all other home medications Psychiatric evaluation The impression and plan of care has been dictated by Ashley Kendrick Nurse Practitioner as directed. Dr. Fatmata MD I have performed a history and physical examination and medical decision making of this patient, discussed the same with the dictator, and agree with the dictators assessment and plan as written, documented as a scribe. Based on total visit time, I have performed more than 50% of this visit. 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 Past Anesthesia/Blood Transfusion Reactions: Family History of Problems w/ Anesthesia, Motion Sickness Additional Past Anesthesia/Blood Transfusion Reaction / Comm: clausterphobia. pt's sister had diff breathing from anesthesia Past Psychological History: Anxiety, Depression, Panic Disorder Additional Psychological History / Comment(s): boarderline personality disorder Smoking Status: Never smoker Past Alcohol Use History: None Reported Past Drug Use History: None Reported - Past Family History Son(s) Family Medical History: No Reported History Additional Family Medical History / Comment(s): She has 2 sons with no major medical problems. Patient does not have any daughters. Mother Family Medical History: Renal Disease Additional Family Medical History / Comment(s): Mother at age 80 from renal failure. Father Family Medical History: Coronary Artery Disease (CAD), CVA/TIA Additional Family Medical History / Comment(s): Father at age 67 with history of DC and stroke Brother(s) Family Medical History: Cancer, Coronary Artery Disease (CAD), Diabetes Mellitus, Hyperlipidemia, Hypertension Additional Family Medical History / Comment(s): She has total of 5 brothers and all had history of coronary artery disease and CABG, hypertension, hyperlipidemi a, diabetes. Sister(s) Family Medical History: Cancer Additional Family Medical History / Comment(s): one sister of colon cancer, second sister had ovarian cancer Medications and Allergies Home Medications Medication Instructions Recorded Confirmed Type Atorvastatin [Lipitor] 80 mg PO HS 01/22/18 11/20/22 History Levothyroxine Sodium 150 mcg PO DAILY 01/22/18 11/20/22 History Albuterol Sulfate [Ventolin HFA] 2 puff INHALATION RT-Q4H PRN 10/10/19 11/20/22 History Aspirin 81 mg PO DAILY chew 10/15/19 11/20/22 Rx Furosemide [Lasix] 40 mg PO DAILY 04/27/20 11/20/22 History Potassium Chloride ER [K-Dur 10] 10 meq PO DAILY 04/27/20 11/20/22 History lamoTRIgine [lamoTRIgine ER] 50 mg PO HS 10/06/21 11/20/22 History lamoTRIgine [lamoTRIgine ER] 100 mg PO HS 10/06/21 11/20/22 History [place] Carbonate [[place] 300 mg PO HS 09/16/22 11/20/22 History Carbonate ER] Melatonin 5 mg PO HS 09/16/22 11/20/22 History Pantoprazole [Protonix] 40 mg PO DAILY 09/16/22 11/20/22 History metFORMIN HCL ER [Glucophage XR] 1,000 mg PO BID 09/16/22 11/20/22 History Acetaminophen Tab [Tylenol] 650 mg PO Q6HR PRN tab 09/23/22 11/20/22 Rx Fluticasone Nasal [place] [Flonase 1 - 2 spray EA NOSTRIL DAILY PRN 11/20/22 11/20/22 History Nasal [place]] INSULIN ASPART (NovoLOG) [NovoLOG See Protocol SQ ACHS 11/20/22 11/20/22 History (formulary)] LORazepam [Ativan] 0.5 mg PO BID PRN 11/20/22 11/20/22 History [place] Carbonate 150 mg PO HS 11/20/22 11/20/22 History Vortioxetine Hydrobromide 5 mg PO DAILY 11/20/22 11/20/22 History [Trintellix] Allergies Allergy/AdvReac Type Severity Reaction Status Date / Time sulfamethoxazole Allergy Unknown Rash/Hives, Verified 11/20/22 17:19 [From Bactrim] SOB trimethoprim [From Bactrim] Allergy Unknown Rash/Hives, Verified 11/20/22 17:19 SOB Physical Exam Vitals: Vital Signs Temp Pulse Pulse Resp BP BP Pulse Ox 11/21/22 08:27 98.7 F 92 118/83 11/20/22 21:44 97.6 F 78 18 149/67 96 11/20/22 13:01 98 F 64 16 151/74 95 Intake and Output 11/20/22 11/21/22 11/21/22 22:59 06:59 14:59 Other: Weight 131.655 kg Results CBC & Chem 7: 11/20/22 16:01 11/20/22 16:01 Labs: Abnormal Lab Results - Last 24 Hours (Table) 11/20/22 11/20/22 11/20/22 Range/Units 16:01 16:01 16:13 WBC 11.3 H (3.8-10.6) k/uL Neutrophils # 8.1 H (1.3-7.7) k/uL Carbon Dioxide 21 L (22-30) mmol/L BUN 20 H (7-17) mg/dL Creatinine 1.26 H (0.52-1.04) mg/dL Glucose 152 H (74-99) mg/dL POC Glucose (mg/dL) (70-110) mg/dL Urine Appearance Cloudy H (Clear) Urine Protein 1+ H (Negative) Urine Bilirubin 1+ H (Negative) Ur Leukocyte Esterase Small H (Negative) Urine WBC 7 H (0-5) /hpf Ur Squamous Epith Cells 6 H (0-4) /hpf Hyaline Casts 6 H (0-2) /lpf Urine Mucus Many H (None) /hpf 11/21/22 Range/Units 07:54 WBC (3.8-10.6) k/uL Neutrophils # (1.3-7.7) k/uL Carbon Dioxide (22-30) mmol/L BUN (7-17) mg/dL Creatinine (0.52-1.04) mg/dL Glucose (74-99) mg/dL POC Glucose (mg/dL) 118 H (70-110) mg/dL Urine Appearance (Clear) Urine Protein (Negative) Urine Bilirubin (Negative) Ur Leukocyte Esterase (Negative) Urine WBC (0-5) /hpf Ur Squamous Epith Cells (0-4) /hpf Hyaline Casts (0-2) /lpf Urine Mucus (None) /hpf Assessment and Plan Time with Patient: Greater than 30
[2022-11-22 07:48] LABS: African American GFR (CKD) 52 (>60 ml/min/1.73 sqM); Anion Gap 7 mmol/L; Blood Urea Nitrogen 23 mg/dL (7-17); Calcium 9.5 mg/dL (8.4-10.2); Carbon Dioxide 26 mmol/L (22-30); Chloride 105 mmol/L (98-107); Glucose 130 mg/dL (74-99); Non-African American GFR(CKD) 45 (>60 ml/min/1.73 sqM); Potassium 4.2 mmol/L (3.5-5.1); Sodium 138 mmol/L (137-145)
[2022-11-22 08:20] LABS: Glucose,Whole Blood 123 mg/dL (70-110)
[2022-11-22] MEDS ORDERED: VORTIOXETINE HYDROBROMIDE 20 MG TABLET PO SCH (09:00)
[2022-11-22] MEDS: INSULIN ASPART (NovoLOG) 100 UNIT/ML VIAL SQ SCH ×4 (09:08→20:52)
[2022-11-22] MEDS: lamoTRIgine 25 MG TAB PO SCH (09:10)
[2022-11-22] MEDS: PANTOPRAZOLE 40 MG TABLET PO SCH (09:11)
[2022-11-22] MEDS: metFORMIN 500 MG TAB PO SCH ×2 (09:11→18:06)
[2022-11-22] MEDS: ASPIRIN 81 MG PO SCH (09:11)
[2022-11-22] MEDS: NICOTINE 14MG/24HR PATCH TRANSDERM SCH (09:13)
[2022-11-22 12:51] LABS: Glucose,Whole Blood 112 mg/dL (70-110)
[2022-11-22] MEDS ORDERED: traZODone HCL 50 MG TAB PO PRN (12:56)
[2022-11-22] MEDS ORDERED: LITHIUM CARBONATE 300 MG CAP PO SCH (13:00)
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
[2022-11-22] MEDS: LITHIUM CARBONATE 150 MG CAP PO SCH ×2 (18:06→20:43)
[2022-11-22 18:09] LABS: Glucose,Whole Blood 127 mg/dL (70-110)
[2022-11-22 19:57] LABS: Glucose,Whole Blood 149 mg/dL (70-110)
[2022-11-22] MEDS: lamoTRIgine 100 MG TAB PO SCH (20:43)
[2022-11-22] MEDS: ATORVASTATIN 80 MG TAB PO SCH (20:43)
[2022-11-22] MEDS: MELATONIN 5 MG TABLET PO SCH (20:43)
[2022-11-23] MEDS: LEVOTHYROXINE 75 MCG TAB PO SCH (05:55)
[2022-11-23 08:05] LABS: Glucose,Whole Blood 119 mg/dL (70-110)
[2022-11-23] MEDS: INSULIN ASPART (NovoLOG) 100 UNIT/ML VIAL SQ SCH ×4 (08:25→21:04)
[2022-11-23] MEDS: ASPIRIN 81 MG PO SCH (09:06)
[2022-11-23] MEDS: PANTOPRAZOLE 40 MG TABLET PO SCH (09:06)
[2022-11-23] MEDS: lamoTRIgine 100 MG TAB PO SCH ×2 (09:06→21:08)
[2022-11-23] MEDS: LITHIUM CARBONATE 150 MG CAP PO SCH ×3 (09:06→21:09)
[2022-11-23] MEDS: VORTIOXETINE HYDROBROMIDE 20 MG TABLET PO SCH (09:06)
[2022-11-23] MEDS: metFORMIN 500 MG TAB PO SCH ×2 (09:06→18:39)
[2022-11-23] MEDS: ONDANSETRON 4 MG TAB PO PRN (09:09)
[2022-11-23] MEDS: NICOTINE 14MG/24HR PATCH TRANSDERM SCH (09:41)
--- NOTE | 2022-11-23 10:55 | P.PN ---
Subjective Progress Note Date: 11/23/22 Principal diagnosis: Diagnostic impression: Major depressive disorder without psychotic features Borderline personality disorder Somatoform disorder unspecified Patient Name: Belinda Welch Date of : 1955 Patient Status: Inpatient Attending Provider: Marc Cancino Date: 11/23/22 Initialization Date: 11/22/22 12:51 Interval history: The patient was seen in her room where she was laying down in bed . she was directable during conversation. She reports that she is not sleeping well She says that she has not used her CPAP machine for the loss 3 months and that it seems to bother her due to the air flow and the humidity She also states that she feels anxious about her children coming to visit her and would not like to see her in this way although they have seen her in her stage of depression multiple times she spoke briefly about her borderline, depression, and also suicide attempt. . claims her brother on this past month. she states that she is still feeling depressed at this time. mildly tearful, poor self esteem. Patient states that she is still feeling hopeless. She is also claiming that she is still having suicidal thoughts however no plan or intent today. She claims that she had on and off sleep last night, \ She is denying any auditory or visual hallucinations. Not reporting any side effects from medications at this time. Mental status examination: General Appearance: A very heavy set female wearing hospital gown and sitting in a wheelchair Behavior: Patient is calmly seated without any agitated behavior. She appears calm yet emotional at times. Speech: Patient's speech is fluent and non-pressured. Rambling at times. Mood/Affect: Mood is depressed and anxious affect is congruent Suicidality/Homicidality: Admits feeling helpless and hopeless but denies any active plan at this time. Denies any homicidal ideations. Perceptions: Patient denies any visual hallucinations and denies auditory hallucinations. Memory and concentration: AOX3, grossly intact for the purposes of this session Judgment and insight: Impaired Diagnostic impression: Major depressive disorder without psychotic features Borderline personality disorder Somatoform disorder unspecified Plan: -Patient is admitted under voluntary status to MHU for stabilization of psychiatric symptoms and safety. Patient has signed adult voluntary form and medication consent and is placed in patient's chart. -Medications: melatonin 5 mg qhs for sleep with trazodone prn for sleep. increase lamotrigine 100 mg twice a day for mood stabilization Trintillix 20 mg a day for mood change [place] carbonate 150 mg three times a daily for Si and mood stabilization -SW on board for discharge planning. Encourage patient to participate in groups to work on coping skills. possible discharge early next week Patient reports that she will ask her sons to bring the CPAP machine from home after we discussed its affect on her depression and general health as well as weight gain Jovan Magalys Castaneda Objective - Vital Signs Vital signs: Vital Signs Temp 97.6 F 11/23/22 06:57 Pulse 62 11/23/22 06:57 Resp 16 11/23/22 06:57 BP 103/51 11/23/22 06:57 Pulse Ox 96 11/22/22 06:36 FiO2 - Labs CBC & Chem 7: 11/20/22 16:01 11/22/22 07:06 Labs: Abnormal Lab Results - Last 24 Hours (Table) 11/22/22 11/22/22 11/22/22 Range/Units 12:50 18:03 19:55 POC Glucose (mg/dL) 112 H 127 H 149 H (70-110) mg/dL 11/23/22 Range/Units 08:03 POC Glucose (mg/dL) 119 H (70-110) mg/dL
[2022-11-23 12:38] LABS: Glucose,Whole Blood 70 mg/dL (70-110)
--- NOTE | 2022-11-23 15:51 | P.PN ---
Progress Note - Text Progress Note Date: 11/23/22 11/23/2022 Patient has been experiencing some pain and burning along with frequency with urination and reports has been progressively getting worse over the last day and initial urinalysis showed very scant amount of white blood cells and small amount of leukocyte Estrace otherwise normal. patient continues to have these symptoms, will repeat a urinalysis and if abnormal will add antibiotics. Patient is afebrile at this time. Discussed with nursing staff to obtain a urine and will follow-up on the report and again if abnormal will consider antibiotics at this point. The impression and plan of care has been dictated by Nora Barroso, Nurse Practitioner as directed. Dr. Fatmata MD I have performed a history and examination and MDM of this patient, discussed the same with the dictator, and agree with the dictator's assessment and plan as written ,documented as a scribe. Based on total visit time, I have performed more than 50% of the visit.
[2022-11-23 17:32] LABS: Glucose,Whole Blood 111 mg/dL (70-110)
[2022-11-23 20:09] LABS: Glucose,Whole Blood 134 mg/dL (70-110)
[2022-11-23] MEDS: MELATONIN 5 MG TABLET PO SCH (21:08)
[2022-11-23] MEDS: ATORVASTATIN 80 MG TAB PO SCH (21:09)
[2022-11-24] MEDS: LEVOTHYROXINE 75 MCG TAB PO SCH (05:48)
[2022-11-24 07:48] LABS: Glucose,Whole Blood 112 mg/dL (70-110)
[2022-11-24] MEDS: INSULIN ASPART (NovoLOG) 100 UNIT/ML VIAL SQ SCH ×4 (07:59→21:31)
[2022-11-24] MEDS: metFORMIN 500 MG TAB PO SCH ×2 (08:48→17:53)
[2022-11-24] MEDS: VORTIOXETINE HYDROBROMIDE 20 MG TABLET PO SCH (08:48)
[2022-11-24] MEDS: LITHIUM CARBONATE 150 MG CAP PO SCH ×3 (08:48→22:32)
[2022-11-24] MEDS: ASPIRIN 81 MG PO SCH (08:49)
[2022-11-24] MEDS: PANTOPRAZOLE 40 MG TABLET PO SCH (08:49)
[2022-11-24] MEDS: NICOTINE 14MG/24HR PATCH TRANSDERM SCH (08:49)
[2022-11-24] MEDS: lamoTRIgine 100 MG TAB PO SCH ×2 (08:49→22:32)
--- NOTE | 2022-11-24 10:07 | P.PN ---
Subjective Progress Note Date: 11/24/22 Principal diagnosis: Diagnostic impression: Major depressive disorder without psychotic features Borderline personality disorder Somatoform disorder unspecified Patient Name: Belinda Welch Date of : 1955 Patient Status: Inpatient Attending Provider: Marc Cancino Date: Interval history: The patient was seen in her room where she had just come back from the nurse's station She reports that she is not sleeping well She says that she has not used her CPAP machine for the last 3 months and that it seems to bother her due to the air flow and the humidity She states that her children did not visit her yesterday and that anyway she was happy because she did not want her to be seen this way and that she will remind them to bring the CPAP machine She says that she also had frequent nightmares and racing thoughts all night She also reports that she's been seeing her brother who all the time standing in the corner and that she fights mentally to block those thoughts Patient initially stated that this has been happening for the last 2 weeks but then stated that this been going on for several years Patient then stated that she also sees several of her family members She also states that she feels anxious about her children coming to visit her and would not like to see her in this way although they have seen her in her stage of depression multiple times she spoke briefly about her borderline, depression, and also suicide attempt. . claims her brother on this past month. she states that she is still feeling depressed at this time. mildly tearful, poor self esteem. Patient states that she is still feeling hopeless. She is also claiming that she is still having suicidal thoughts however no plan or intent today. She claims that she had on and off sleep last night, \ She is denying any auditory or visual hallucinations. Not reporting any side effects from medications at this time. Mental status examination: General Appearance: A very heavy set female wearing hospital gown and sitting in a wheelchair Behavior: Patient is calmly seated without any agitated behavior. She appears calm yet emotional at times. Some degree of confabulation is suspected Speech: Patient's speech is fluent and non-pressured. Rambling at times. Mood/Affect: Mood is depressed and anxious affect is congruent Suicidality/Homicidality: Admits feeling helpless and hopeless but denies any active plan at this time. Denies any homicidal ideations. Perceptions: Patient admits to visual hallucinations and denies auditory hallucinations. Memory and concentration: AOX3, grossly intact for the purposes of this session Judgment and insight: Impaired Diagnostic impression: Major depressive disorder without psychotic features Rule out major depressive disorder with psychotic features Borderline personality disorder Somatoform disorder unspecified Plan: Some degree of confabulation and history on his city suspected since patient is now endorsing psychotic symptoms -Patient is admitted under voluntary status to MHU for stabilization of psychiatric symptoms and safety. Patient has signed adult voluntary form and medication consent and is placed in patient's chart. -Medications: melatonin 5 mg qhs for sleep with trazodone prn for sleep. increase lamotrigine 100 mg twice a day for mood stabilization Trintillix 20 mg a day for mood We will add Abilify 2 mg at bedtime Discussed effects and side effects which she appears to have understood well change [place] carbonate 150 mg three times a daily for Si and mood stabilization -SW on board for discharge planning. Encourage patient to participate in groups to work on coping skills. possible discharge early next week Patient reports that she will ask her sons to bring the CPAP machine from home after we discussed its affect on her depression and general health as well as weight gain Jovanmeliza Dowell M.D. Objective - Vital Signs Vital signs: Vital Signs Temp 97.6 F 11/24/22 07:00 Pulse 57 L 11/24/22 07:00 Resp 16 11/24/22 07:00 BP 120/58 11/24/22 07:00 Pulse Ox 95 11/24/22 07:00 FiO2 - Labs CBC & Chem 7: 11/20/22 16:01 11/22/22 07:06 Labs: Abnormal Lab Results - Last 24 Hours (Table) 11/23/22 11/23/22 11/24/22 Range/Units 17:31 20:07 07:41 POC Glucose (mg/dL) 111 H 134 H 112 H (70-110) mg/dL
[2022-11-24 10:21] LABS: African American GFR (CKD) 67 (>60 ml/min/1.73 sqM); Anion Gap 12 mmol/L; Blood Urea Nitrogen 21 mg/dL (7-17); Carbon Dioxide 23 mmol/L (22-30); Chloride 102 mmol/L (98-107); Glucose 185 mg/dL (74-99); Non-African American GFR(CKD) 58 (>60 ml/min/1.73 sqM); Potassium 5.1 mmol/L (3.5-5.1); Sodium 137 mmol/L (137-145)
[2022-11-24 11:24] LABS: Appearance,Urine Clear (Clear); Bacteria,Urine Rare /hpf; Bilirubin,Urine Negative (Negative); Blood,Urine Negative (Negative); Color,Urine Light Yellow; Glucose,Urine (UA) Negative (Negative); Ketones,Urine Negative (Negative); Leukocyte Esterase,Urine Small (Negative); Mucus,Urine Rare /hpf; Nitrite,Urine Negative (Negative); Protein,Urine Negative (Negative); RBC,Urine 2 /hpf (0-5); Specific Gravity,Urine 1.016 (1.001-1.035); Squamous Epithelial Cell,Urine 1 /hpf (0-4); Urobilinogen,Urine <2.0 mg/dL (<2.0); WBC,Urine 7 /hpf (0-5)
[2022-11-24 12:34] LABS: Glucose,Whole Blood 102 mg/dL (70-110)
[2022-11-24] MEDS: NYSTATIN 100,000 UNIT/GM POWD 15 GM TOPICAL PRN (16:15)
[2022-11-24] MEDS: ONDANSETRON 4 MG TAB PO PRN (16:18)
[2022-11-24 17:37] LABS: Glucose,Whole Blood 126 mg/dL (70-110)
[2022-11-24 19:53] LABS: Glucose,Whole Blood 136 mg/dL (70-110)
[2022-11-24] MEDS: ATORVASTATIN 80 MG TAB PO SCH (22:32)
[2022-11-24] MEDS: MELATONIN 5 MG TABLET PO SCH (22:32)
[2022-11-25] MEDS: LEVOTHYROXINE 75 MCG TAB PO SCH (06:34)
[2022-11-25 08:02] LABS: Glucose,Whole Blood 119 mg/dL (70-110)
[2022-11-25] MEDS: INSULIN ASPART (NovoLOG) 100 UNIT/ML VIAL SQ SCH ×4 (09:13→20:54)
[2022-11-25] MEDS: ALBUTEROL HFA INHALER INHALATION PRN (09:16)
[2022-11-25] MEDS: LITHIUM CARBONATE 150 MG CAP PO SCH ×3 (09:18→20:53)
[2022-11-25] MEDS: metFORMIN 500 MG TAB PO SCH ×2 (09:19→18:05)
[2022-11-25] MEDS: lamoTRIgine 100 MG TAB PO SCH ×2 (09:19→20:53)
[2022-11-25] MEDS: ASPIRIN 81 MG PO SCH (09:19)
[2022-11-25] MEDS: PANTOPRAZOLE 40 MG TABLET PO SCH (09:19)
[2022-11-25] MEDS: VORTIOXETINE HYDROBROMIDE 20 MG TABLET PO SCH (09:19)
[2022-11-25] MEDS ORDERED: busPIRone HCl 10 MG TAB PO PRN (12:14)
--- NOTE | 2022-11-25 12:21 | P.PN ---
Progress Note - Text Progress Note Date: 11/25/22 Interval history: Patient was seen sitting in the lounge, she was agreeable to speak to advertising copywriter in her room today. She continues to be fairly anxious and states that she is feeling very depressed and hopeless. She claims that she may have seen her brother who is . She states that she continues to have suicidal thoughts, no plans today. she was directable during conversation, she was asking several questions about her meds. she claims that she is still tearful uring the day and endorses hopeless, poor self esteem. She claims that she had on and off sleep last night, continues to be poor, appetite is fair. She is denying any auditory or visual hallucinations. Not reporting any side effects from medications at this time. Mental status examination: General Appearance: A very heavy set female wearing hospital gown and sitting in a wheelchair Behavior: Patient is calmly seated without any agitated behavior. She appears calm yet emotional at times. Speech: Patient's speech is fluent and non-pressured. Rambling at times. Mood/Affect: Mood is depressed and anxious affect is congruent and constricted Suicidality/Homicidality: Admits feeling helpless and hopeless but denies any active plan at this time. Denies any homicidal ideations. Perceptions: Patient denies any visual hallucinations and denies auditory hallucinations. Memory and concentration: AOX3, grossly intact for the purposes of this session Judgment and insight: improving mildly Diagnostic impression: Major depressive disorder without psychotic features Borderline personality disorder Somatoform disorder unspecified Plan: -Patient is admitted under voluntary status to [facility]HU for stabilization of psychi atric symptoms and safety. Patient has signed adult voluntary form and medication consent and is placed in patient's chart. -Medications: melatonin 5 mg qhs for sleep with trazodone prn for sleep. [place] 100 mg twice a day for mood stabilization, d/c Trintillix, replace from with effexor xr 37.5 mg daily for mood/anxiety. continue [place] carbonate 150 mg three times a daily for Si and mood stabilization -SW on board for discharge planning. Encourage patient to participate in groups to work on coping skills. possible discharge in 2-3 days once patient is improved.
[2022-11-25] MEDS: VENLAFAXINE HCL ER 37.5 MG CAP PO SCH (12:33)
[2022-11-25 12:40] LABS: Glucose,Whole Blood 93 mg/dL (70-110)
[2022-11-25 17:41] LABS: Glucose,Whole Blood 191 mg/dL (70-110)
[2022-11-25 19:59] LABS: Glucose,Whole Blood 95 mg/dL (70-110)
[2022-11-25] MEDS: ATORVASTATIN 80 MG TAB PO SCH (20:54)
[2022-11-25] MEDS: MELATONIN 5 MG TABLET PO SCH (20:54)
[2022-11-25] MEDS ORDERED: ARIPiprazole 2 MG TAB PO SCH (21:00)
[2022-11-25] MEDS ORDERED: traZODone HCL 100 MG TAB PO SCH (21:00)
[2022-11-26] MEDS: LEVOTHYROXINE 75 MCG TAB PO SCH (06:32)
[2022-11-26 07:53] LABS: Glucose,Whole Blood 112 mg/dL (70-110)
[2022-11-26] MEDS: INSULIN ASPART (NovoLOG) 100 UNIT/ML VIAL SQ SCH ×4 (07:55→20:12)
[2022-11-26] MEDS: ASPIRIN 81 MG PO SCH (08:46)
[2022-11-26] MEDS: LITHIUM CARBONATE 150 MG CAP PO SCH ×3 (08:46→22:43)
[2022-11-26] MEDS: VENLAFAXINE HCL ER 37.5 MG CAP PO SCH (08:46)
[2022-11-26] MEDS: metFORMIN 500 MG TAB PO SCH ×2 (08:46→18:49)
[2022-11-26] MEDS: PANTOPRAZOLE 40 MG TABLET PO SCH (08:46)
[2022-11-26] MEDS: lamoTRIgine 100 MG TAB PO SCH ×2 (08:46→22:43)
[2022-11-26 12:47] LABS: Glucose,Whole Blood 86 mg/dL (70-110)
--- NOTE | 2022-11-26 12:56 | P.PN ---
Progress Note - Text Progress Note Date: 11/26/22 Interval history: Patient was seen today laying in bed and was agreeable to seek to engineering technical writer today. Patient claims that she feels mildly better compared to yesterday however continues to state that she is feeling fairly anxious and depressed. She claims that she still hears her brother at nighttime and his side. She also claims that she has racing thoughts at nighttime and has been sleeping on and off. We spoke about other medication options and she was agreeable to try Seroquel. She has more questions about her medications which were answered. States that her appetite is fair. She has been trying to go to some groups. Continues to feel hopeless and endorsing suicidal thoughts however no intent or plan. she claims that she is still tearful uring the day and endorses hopeless, poor self esteem. She claims that she had on and off sleep last night, continues to be poor, appetite is fair. She is denying any auditory or visual hallucinations. Not reporting any side effects from medications at this time. Mental status examination: General Appearance: A very heavy set female wearing hospital gown and sitting in a wheelchair Behavior: Patient is calmly seated without any agitated behavior. She appears calm yet emotional at times, improving Speech: Patient's speech is fluent and non-pressured. less Rambling at times. Mood/Affect: Mood is depressed and anxious affect is congruent and constricted, improving mildly Suicidality/Homicidality: Admits feeling helpless and hopeless but denies any active plan at this time. Denies any homicidal ideations. Perceptions: Patient denies any visual hallucinations and denies auditory hallucinations. Memory and concentration: AOX3, grossly intact for the purposes of this session Judgment and insight: improving mildly Diagnostic impression: Major depressive disorder without psychotic features Borderline personality disorder Somatoform disorder unspecified Plan: -Patient is admitted under voluntary status to [facility] for stabilization of psychiatric symptoms and safety. Patient has signed adult voluntary form and medication consent and is placed in patient's chart. -Medications: melatonin 5 mg qhs for sleep, d/c trazodone and replace with seroquel 50 mg qhs for insomnia/mood stabilization. lamotrigine 100 mg twice a day for mood stabilization, increase effexor xr 75 mg daily for mood/anxiety. continue [place] carbonate 150 mg three times a daily for Si/mood stabilization -SW on board for discharge planning. Encourage patient to participate in groups to work on coping skills. possible discharge in 2-3 days once patient is improved.
[2022-11-26] MEDS: NYSTATIN 100,000 UNIT/GM POWD 15 GM TOPICAL PRN (17:06)
[2022-11-26 18:02] LABS: Glucose,Whole Blood 97 mg/dL (70-110)
[2022-11-26 19:57] LABS: Glucose,Whole Blood 157 mg/dL (70-110)
[2022-11-26] MEDS ORDERED: QUEtiapine 50 MG TAB PO SCH (21:00)
[2022-11-26] MEDS: MELATONIN 5 MG TABLET PO SCH (22:43)
[2022-11-26] MEDS: ATORVASTATIN 80 MG TAB PO SCH (22:43)
[2022-11-26] MEDS: ALBUTEROL HFA INHALER INHALATION PRN (22:47)
[2022-11-26] MEDS: FLUTICASONE 50MCG/SPRAY NASAL 16GM EA NOSTRIL PRN (23:00)
[2022-11-27] MEDS: LEVOTHYROXINE 75 MCG TAB PO SCH (06:24)
[2022-11-27 07:52] LABS: Glucose,Whole Blood 108 mg/dL (70-110)
[2022-11-27] MEDS: INSULIN ASPART (NovoLOG) 100 UNIT/ML VIAL SQ SCH ×4 (09:00→21:05)
[2022-11-27] MEDS: metFORMIN 500 MG TAB PO SCH ×2 (09:01→18:00)
[2022-11-27] MEDS: LITHIUM CARBONATE 150 MG CAP PO SCH (09:01)
[2022-11-27] MEDS: PANTOPRAZOLE 40 MG TABLET PO SCH (09:01)
[2022-11-27] MEDS: VENLAFAXINE HCL ER 75 MG CAP PO SCH (09:01)
[2022-11-27] MEDS: lamoTRIgine 100 MG TAB PO SCH (09:01)
[2022-11-27] MEDS: ASPIRIN 81 MG PO SCH (09:01)
[2022-11-27 12:37] LABS: Glucose,Whole Blood 97 mg/dL (70-110)
--- NOTE | 2022-11-27 13:43 | P.PN ---
Progress Note - Text Progress Note Date: 11/27/22 Interval history: Patient was seen today laying in bed and was agreeable to seek to advertising writer today. Patient claims that she is still feeling fairly depressed and anxious. She claims that she was able to sleep throughout the night however states that when she got up she was fairly dizzy. She claims that she was too tired to get up earlier this morning, she states that she missed lunch. She has not been going to many groups today. Continues to catastrophize and states that she has little motivation. Continues to state that she hears her brother. She was encouraged to participate more in group and not stay in the room with the lights off. Continues to feel hopeless and endorsing suicidal thoughts however no intent or plan. she claims that she is still tearful uring the day and endorses hopeless, poor self esteem. She claims that she had on and off sleep last night, continues to be poor, appetite is fair. She is denying any auditory or visual hallucinations. Not reporting any side effects from medications at this time. Mental status examination: General Appearance: A very heavy set female wearing hospital gown and sitting in a wheelchair Behavior: Patient is calmly seated without any agitated behavior, improving Speech: Patient's speech is fluent and non-pressured. less Rambling at times. Soft tone. Mood/Affect: Mood is depressed and anxious affect is congruent and constricted, improving mildly Suicidality/Homicidality: Admits feeling helpless and hopeless but denies any active plan at this time. Denies any homicidal ideations. Perceptions: Patient denies any visual hallucinations and denies auditory hallucinations. Memory and concentration: AOX3, grossly intact for the purposes of this session Judgment and insight: improving mildly Diagnostic impression: Major depressive disorder without psychotic features Borderline personality disorder Somatoform disorder unspecified Plan: -Patient is admitted under voluntary status to [facility] for stabilization of psychiatric symptoms and safety. Patient has signed adult voluntary form and medication consent and is placed in patient's chart. -Medications: increase melatonin 10 mg qhs for sleep, decrease seroquel 25 mg qhs for insomnia/mood stabilization. d/c lamotrigine, effexor xr 75 mg daily for mood/anxiety. increase [place] carbonate 300 mg two times a daily for Si/mood stabilization -SW on board for discharge planning. Encourage patient to participate in groups to work on coping skills. possible discharge in 2-3 days once patient is improved.
[2022-11-27 17:56] LABS: Glucose,Whole Blood 103 mg/dL (70-110)
[2022-11-27 20:08] LABS: Glucose,Whole Blood 103 mg/dL (70-110)
[2022-11-27] MEDS: LITHIUM CARBONATE 300 MG CAP PO SCH (21:06)
[2022-11-27] MEDS: MELATONIN 5 MG TABLET PO SCH (21:06)
[2022-11-27] MEDS: ATORVASTATIN 80 MG TAB PO SCH (21:06)
[2022-11-27] MEDS: QUEtiapine 25 MG TAB PO SCH (21:06)
[2022-11-28] MEDS: LEVOTHYROXINE 75 MCG TAB PO SCH (06:48)
[2022-11-28 08:10] LABS: Glucose,Whole Blood 106 mg/dL (70-110)
[2022-11-28] MEDS: INSULIN ASPART (NovoLOG) 100 UNIT/ML VIAL SQ SCH ×4 (08:14→20:51)
[2022-11-28] MEDS: LITHIUM CARBONATE 300 MG CAP PO SCH ×2 (08:16→20:47)
[2022-11-28] MEDS: VENLAFAXINE HCL ER 75 MG CAP PO SCH (08:16)
[2022-11-28] MEDS: metFORMIN 500 MG TAB PO SCH ×2 (08:16→18:03)
[2022-11-28] MEDS: ASPIRIN 81 MG PO SCH (08:16)
[2022-11-28] MEDS: PANTOPRAZOLE 40 MG TABLET PO SCH (08:17)
--- NOTE | 2022-11-28 11:51 | P.PN ---
Progress Note - Text Progress Note Date: 11/28/22 Interval history: Patient was seen today laying in bed and was agreeable to seek to sign writer hand today. patient continues to catastrophize and indoors significant symptoms. She states that she is still feeling depressed and anxious. She believes that "nothing is helping". Continues to state that she does not want to live any longer. She states that last night she heard a "growling" and states that she does not know where that came from and it scared her. She states that she was not able to sl eep through the night. She claims that she would like to be restarted back on trazodone. She had several questions about her medications. Continues to feel hopeless and endorsing suicidal thoughts however no intent or plan. she claims that she is still tearful during the day and endorses hopeless, poor self esteem. She claims that she had on and off sleep last night, continues to be poor, appetite is fair. She is denying any auditory or visual hallucinations. Not reporting any side effects from medications at this time. Mental status examination: General Appearance: A very heavy set female wearing hospital gown and laying in bed Behavior: Patient is calmly seated without any agitated behavior, improving Speech: Patient's speech is fluent and non-pressured. less Rambling at times. Soft tone. Mood/Affect: Mood is depressed and anxious affect is congruent and constricted, improving mildly Suicidality/Homicidality: Admits feeling helpless and hopeless but denies any active plan at this time. Denies any homicidal ideations. Perceptions: Patient denies any visual hallucinations and denies auditory hallucinations. Memory and concentration: AOX3, grossly intact for the purposes of this session Judgment and insight: poor, improving mildly Diagnostic impression: Major depressive disorder without psychotic features Borderline personality disorder Somatoform disorder unspecified Plan: -Patient is admitted under voluntary status to [facility] for stabilization of psychiatric symptoms and safety. Patient has signed adult voluntary form and medication consent and is placed in patient's chart. -Medications: melatonin 10 mg qhs for sleep, added trazodone 50 mg qhs for sleep. seroquel 25 mg qhs for insomnia/mood stabilization. increase effexor xr 150 mg daily for mood/anxiety. [place] carbonate 300 mg two times a daily for Si/mood stabilization -SW on board for discharge planning. Encourage patient to participate in groups to work on coping skills. possible discharge in 2-3 days once patient is improved.
[2022-11-28 12:58] LABS: Glucose,Whole Blood 108 mg/dL (70-110)
[2022-11-28 17:40] LABS: Glucose,Whole Blood 97 mg/dL (70-110)
[2022-11-28 20:12] LABS: Glucose,Whole Blood 102 mg/dL (70-110)
[2022-11-28] MEDS: MELATONIN 5 MG TABLET PO SCH (20:47)
[2022-11-28] MEDS: ATORVASTATIN 80 MG TAB PO SCH (20:47)
[2022-11-28] MEDS: QUEtiapine 25 MG TAB PO SCH (20:47)
[2022-11-28] MEDS ORDERED: traZODone HCL 50 MG TAB PO SCH (21:00)
[2022-11-29] MEDS: LEVOTHYROXINE 75 MCG TAB PO SCH (06:32)
[2022-11-29 07:49] LABS: Glucose,Whole Blood 99 mg/dL (70-110)
[2022-11-29] MEDS: INSULIN ASPART (NovoLOG) 100 UNIT/ML VIAL SQ SCH ×4 (08:01→22:31)
[2022-11-29] MEDS: ASPIRIN 81 MG PO SCH (08:44)
[2022-11-29] MEDS: VENLAFAXINE HCL ER 150 MG CAP PO SCH (08:44)
[2022-11-29] MEDS: metFORMIN 500 MG TAB PO SCH ×2 (08:44→18:05)
[2022-11-29] MEDS: LITHIUM CARBONATE 300 MG CAP PO SCH ×2 (08:45→22:27)
[2022-11-29] MEDS: PANTOPRAZOLE 40 MG TABLET PO SCH (08:45)
--- NOTE | 2022-11-29 15:39 | P.PN ---
Progress Note - Text Progress Note Date: 11/29/22 Interval history: Patient was seen today laying in bed and was agreeable to seek to rfp writer today. patient continues to catastrophize her significant symptoms and claims that she is still "not doing well".. She states that she is still feeling depressed and anxious and believes that medication orders are only mildly helping her. She did state that she was able to sleep better last night however was still restless at times and being awoken on the unit. She claims that she has been trying to go to groups and participate as best as she can. Continues to endorse hopelessness and chronic suicidal thoughts however no intent or plan. She was attempting to negotiate with the rfp writer about staying on the unit longer and believes that she just seems "more time". Snow Technician spoke with her about the realistic side of the medications and that it is more likely to completely remove her chronic suicidal thoughts and that they would be better treated as an the outpatient with increased CM services and possibly DBT. appetite is fair. She is denying any auditory or visual hallucinations. Not reporting any side effects from medications at this time. Mental status examination: General Appearance: A very heavy set female wearing hospital gown and laying in bed Behavior: Patient is calmly seated without any agitated behavior, improving Speech: Patient's speech is fluent and non-pressured. less Rambling at times. Mood/Affect: Mood is depressed and anxious affect is congruent and constricted, improving mildly Suicidality/Homicidality: Admits feeling helpless and hopeless but denies any active plan at this time. Denies any homicidal ideations. Perceptions: Patient denies any visual hallucinations and denies auditory hallucinations. Memory and concentration: AOX3, grossly intact for the purposes of this session Judgment and insight: Chronically poor, improving mildly Diagnostic impression: Major depressive disorder without psychotic features Borderline personality disorder Somatoform disorder unspecified Plan: -Patient is admitted under voluntary status to [facility] for stabilization of psychiatric symptoms and safety. Patient has signed adult voluntary form and medication consent and is placed in patient's chart. -Medications: melatonin 10 mg qhs for sleep, increased trazodone 100 mg qhs for sleep. seroquel 25 mg qhs for insomnia/mood stabilization. Continue with effexor xr 150 mg daily for mood/anxiety., Likely will need to increase on Friday to a higher dose of Effexor. [place] carbonate 300 mg two times a daily for Si/mood stabilization, will check lithium level tomorrow morning. I added BuSpar scheduled 50 mg twice a day for anxiety. -SW on board for discharge planning. Encourage patient to participate in groups to work on coping skills. Likely discharge Friday back home. -mud jack nozzle worker spoke with patient's 2 sons who apparently have secured the house and are anticipating patient back home. Will follow up with [facility] on Friday to see about the increased in services offered at [facility]. it appears that patients SI are chronic and not likely to resolve while on the unit and would be better suited to be treated with DBT/therapy
[2022-11-29] MEDS: busPIRone HCl 5 MG TAB PO SCH ×2 (16:06→22:28)
[2022-11-29] MEDS: ATORVASTATIN 80 MG TAB PO SCH (22:27)
[2022-11-29] MEDS: traZODone HCL 100 MG TAB PO SCH (22:27)
[2022-11-29] MEDS: QUEtiapine 25 MG TAB PO SCH (22:27)
[2022-11-29] MEDS: MELATONIN 5 MG TABLET PO SCH (22:27)
[2022-11-30] MEDS: FLUTICASONE 50MCG/SPRAY NASAL 16GM EA NOSTRIL PRN (01:10)
[2022-11-30] MEDS: LEVOTHYROXINE 75 MCG TAB PO SCH (06:08)
[2022-11-30 08:11] LABS: Glucose,Whole Blood 100 mg/dL (70-110)
[2022-11-30] MEDS: INSULIN ASPART (NovoLOG) 100 UNIT/ML VIAL SQ SCH ×4 (08:39→20:50)
[2022-11-30] MEDS: LITHIUM CARBONATE 300 MG CAP PO SCH ×2 (08:59→22:54)
[2022-11-30] MEDS: PANTOPRAZOLE 40 MG TABLET PO SCH (08:59)
[2022-11-30] MEDS: VENLAFAXINE HCL ER 150 MG CAP PO SCH (08:59)
[2022-11-30] MEDS: metFORMIN 500 MG TAB PO SCH ×2 (08:59→18:34)
[2022-11-30] MEDS: ASPIRIN 81 MG PO SCH (08:59)
[2022-11-30] MEDS: busPIRone HCl 5 MG TAB PO SCH ×2 (08:59→22:53)
[2022-11-30] MEDS: haloperidoL 5 MG TAB PO PRN (11:05)
[2022-11-30] MEDS: NYSTATIN 100,000 UNIT/GM POWD 15 GM TOPICAL PRN (11:15)
[2022-11-30 12:57] LABS: Glucose,Whole Blood 87 mg/dL (70-110)
[2022-11-30 17:54] LABS: Glucose,Whole Blood 175 mg/dL (70-110)
[2022-11-30 20:05] LABS: Glucose,Whole Blood 105 mg/dL (70-110)
[2022-11-30] MEDS: MELATONIN 5 MG TABLET PO SCH (22:53)
[2022-11-30] MEDS: ATORVASTATIN 80 MG TAB PO SCH (22:53)
[2022-11-30] MEDS: traZODone HCL 100 MG TAB PO SCH (22:54)
[2022-11-30] MEDS: QUEtiapine 25 MG TAB PO SCH (22:54)
[2022-12-01] MEDS: LEVOTHYROXINE 75 MCG TAB PO SCH (05:17)
[2022-12-01 05:59] LABS: Appearance,Urine Clear (Clear); Bacteria,Urine Occasional /hpf; Bilirubin,Urine Negative (Negative); Blood,Urine Negative (Negative); Color,Urine Colorless; Glucose,Urine (UA) Negative (Negative); Ketones,Urine Negative (Negative); Leukocyte Esterase,Urine Small (Negative); Mucus,Urine Rare /hpf; Nitrite,Urine Negative (Negative); PH, Urine 5.5 (5.0-8.0); Protein,Urine Negative (Negative); RBC,Urine <1 /hpf (0-5); Specific Gravity,Urine 1.009 (1.001-1.035); Squamous Epithelial Cell,Urine 1 /hpf (0-4); Urobilinogen,Urine <2.0 mg/dL (<2.0); WBC,Urine 10 /hpf (0-5)
[2022-12-01 08:15] LABS: Glucose,Whole Blood 97 mg/dL (70-110)
[2022-12-01] MEDS: LITHIUM CARBONATE 300 MG CAP PO SCH ×2 (08:51→22:36)
[2022-12-01] MEDS: VENLAFAXINE HCL ER 150 MG CAP PO SCH (08:51)
[2022-12-01] MEDS: ASPIRIN 81 MG PO SCH (08:51)
[2022-12-01] MEDS: busPIRone HCl 5 MG TAB PO SCH ×2 (08:51→22:36)
[2022-12-01] MEDS: PANTOPRAZOLE 40 MG TABLET PO SCH (08:51)
[2022-12-01] MEDS: metFORMIN 500 MG TAB PO SCH ×2 (08:51→19:04)
[2022-12-01] MEDS: INSULIN ASPART (NovoLOG) 100 UNIT/ML VIAL SQ SCH ×4 (08:52→22:35)
[2022-12-01] MEDS ORDERED: VENLAFAXINE HCL ER 75 MG CAP PO STA (10:18)
--- NOTE | 2022-12-01 10:24 | P.PN ---
Progress Note - Text Progress Note Date: 11/30/22 Interval history: Patient was seen in her room and was directable and agreeable to speak with selling underwriter. She states that she is still suicidal and has been crying frequently. She reports hallucinations that began a few days ago of her brother. She states that she feels like a zombie. She reports poor sleep.. At this time homicidal ideations intent or plan. Patient denies any side effects from the medications and has been compliant with meds. Mental status exam: General Appearance: [Patient appears to be stated age is drowsy, directable, and cooperative.] Behavior: [No agitated behavior. Patient is calm and directable] Speech: Patient's speech is fluent and nonpressured. Mood/Affect: affect is congruent and constricted. Suicidality/Homicidality: Reports SI. Patient denies having any homicidal ideation intent or plan. Perceptions: Not currently responding to internal stimuli Though content/process: [There is no evidence of any delusional thought content and thought process is linear and goal-directed.] Memory and concentration: AOX3, grossly intact for the purposes of this session Judgment and insight: improving mildly Assessment/Plan: Continue with current diagnosis. Patient continues to meet criteria for inpatient psychiatric admission for symptom stabilization and safety.[Patient will be maintained on current psychotropic medication regimen.] Monitor for medication compliance and for any psychotropic medication side effects. Will continue to monitor ongoing response to treatment. Encouraged participation in milieu.
--- NOTE | 2022-12-01 10:26 | P.PN ---
Progress Note - Text Interval history: Patient was seen in her room and was directable and agreeable to speak with justowriter operator. Reports continued suicidal thoughts. States that she was having hallucinations last night and she was paranoid of the shadows. Continues to have crying spells. Continues to report poor sleep. At this time homicidal ideations intent or plan. Patient denies any side effects from the medications and has been compliant with meds. Mental status exam: General Appearance: [Patient appears to be stated age is drowsy, directable, and cooperative.] Behavior: [No agitated behavior. Patient is calm and directable] Speech: Patient's speech is fluent and nonpressured. Mood/Affect: affect is congruent and constricted. Suicidality/Homicidality: Reports SI. Patient denies having any homicidal ideation intent or plan. Perceptions: Not currently responding to internal stimuli Though content/process: [There is no evidence of any delusional thought content and thought process is linear and goal-directed.] Memory and concentration: AOX3, grossly intact for the purposes of this session Judgment and insight: improving mildly Assessment/Plan: Continue with current diagnosis. Patient continues to meet criteria for inpatient psychiatric admission for symptom stabilization and safety.[ Increase Effexor XR to 225 mg daily and Seroquel to 50 mg at bedtime. Continue all other medications at their current doses] Monitor for medication compliance and for any psychotropic medication side effects. Will continue to monitor ongoing response to treatment. Encouraged participation in milieu.
[2022-12-01 12:48] LABS: Glucose,Whole Blood 101 mg/dL (70-110)
[2022-12-01 17:59] LABS: Glucose,Whole Blood 89 mg/dL (70-110)
[2022-12-01 20:16] LABS: Glucose,Whole Blood 161 mg/dL (70-110)
[2022-12-01] MEDS ORDERED: QUEtiapine 50 MG TAB PO SCH (21:00)
[2022-12-01] MEDS: MELATONIN 5 MG TABLET PO SCH (22:36)
[2022-12-01] MEDS: QUEtiapine 25 MG TAB PO SCH (22:36)
[2022-12-01] MEDS: traZODone HCL 100 MG TAB PO SCH (22:36)
[2022-12-01] MEDS: ATORVASTATIN 80 MG TAB PO SCH (22:42)
[2022-12-02] MEDS: LEVOTHYROXINE 75 MCG TAB PO SCH (06:44)
[2022-12-02 07:18] VITALS: BP 142/70; PULSE 65; RESP 18; TEMP 97.1
[2022-12-02 07:53] LABS: Glucose,Whole Blood 87 mg/dL (70-110)
[2022-12-02] MEDS: INSULIN ASPART (NovoLOG) 100 UNIT/ML VIAL SQ SCH ×3 (08:07→17:53)
[2022-12-02] MEDS ORDERED: VENLAFAXINE HCL ER 75 MG CAP PO SCH (09:00)
[2022-12-02] MEDS: ASPIRIN 81 MG PO SCH (09:04)
[2022-12-02] MEDS: metFORMIN 500 MG TAB PO SCH ×2 (09:04→17:55)
[2022-12-02] MEDS: PANTOPRAZOLE 40 MG TABLET PO SCH (09:04)
[2022-12-02] MEDS: LITHIUM CARBONATE 300 MG CAP PO SCH (09:05)
[2022-12-02] MEDS: busPIRone HCl 5 MG TAB PO SCH (09:05)
[2022-12-02] MEDS: haloperidoL 5 MG TAB PO PRN (09:12)
--- NOTE | 2022-12-02 11:33 | P.DS ---
Providers Date of admission: 11/20/22 20:19 Expected date of discharge: 12/02/22 Attending physician: Marc Cancino MD Consults: 11/20/22 20:37 Consult Physician Routine Consulting Provider: [facility] Consult Reason/Comments: H&P Do you want consulting provider notified?: Yes Primary care physician: Jacki Freeman - Discharge Diagnosis(es) (1) Depressive disorder Current Visit: Yes Status: Acute Priority: High (2) Borderline personality disorder Current Visit: Yes Status: Acute Priority: High (3) Somatoform disorder, unspecified Current Visit: Yes Status: Acute Priority: Medium (4) Suicidal ideation Current Visit: Yes Status: Acute Priority: Medium Hospital Course: Admission HPI: Admission note was completed by Dr Dowell "This is psychiatric evaluation on Belinda who is a 67-year-old female and was hospitalized for suicidal ideations Patient reports that she's been getting increasingly depressed over the last several months She states that she feels useless and a burden on everyone She states that she currently lives with her 2 sons were very supportive and she feels like she is hampering everybody's lifestyle She says that she has multiple issues including her health is failing and although she ambulates with a cane or a walker that she is morbidly obese and has difficulty getting around She says that 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 Patient was initially fairly isolative, depressed however with time and treatment she got along well with other patients on the unit and followed unit protocol and attempted to go to groups and interact with others. Patient was compliant with the medications. Patient was started on melatonin increased her dose of 10 mg daily at bedtime for sleep, trazodone 150 mg daily at bedtime when necessary for sleep, Seroquel 25 mg daily at bedtime for insomnia/mood stabilization, she could not tolerate a higher dose due to over sedation and dizziness. Patient was also switched onto Effexor XR increased her dose of 225 mg daily for mood/anxiety, lithium increased to dose of 300 mg twice a day for suicidal thoughts, mood stabilization. BuSpar 15 mg twice a day for anxiety. Patient spoke of her stressors and engaged in therapy both group and individual. Patient was also seen by medical team for history and physical exam. patient had a lithium level drawn which was 0.9. Throughout the course of the hospitalization patient gradually improved with regards to mood, anxiety, sleep and returned back to their baseline level of functioning. Patient appears to have persistent suicidal thoughts, no intent or plan however this appears to be directly related to patients personality disorder rather than depression. On the day of discharge patient denied any active suicidal or homicidal ideations intent or plan denied any auditory or visual hallucinations. Patient endorsed wanting to live for her family and her sons. patient has chronic feelings of emptiness/hopelessness. The patient denied any access to guns or weapons and Sw confirmed no access to guns or weapons in the house by the two sons. Patient denied any paranoia and did not endorse any delusions. Patient does not have a significant history of substance abuse and was counseled on abstaining from all substances including alcohol and marijuana. Patient was also counseled on the medications and need for regular compliance and was encouraged to follow-up with their outpatient appointment for mental health and also for primary care. Prior to discharge a family meeting will be arranged by social work instructor to answer any questions and ensure safety upon discharge. Patient does qualify for and will be contacted by [facility] for increased services and group therapy along with increased frequency of indvl therapy to help with patients chronic SI and feelings of empitness. Mental status exam: General Appearance: Patient appears to be obese, stated age is alert, pleasant, and cooperative. Patient is in no acute distress and has improved hygiene and grooming Behavior: Patient is calmly seated without any agitated behavior. manipulative at times Speech: Patient's speech is fluent and nonpressured. Mood/Affect: Patient reports their mood is "alright", affect is congruent Suicidality/Homicidality: Patient denies having any suicidal or homicidal ideation intent or plan. Perceptions: Patient denies any auditory or visual hallucinations. Though content/process: There is no evidence of any delusional thought content and thought process is linear and goal-directed. more future oriented Memory and concentration: AOX3, grossly intact for the purposes of this session. Can spell "WORLD" backwards correctly. Judgment and insight: chronically poor, however has improved with guarded prognosis Impression: Depressive disorder unspecified Borderline personality disorder Somatoform disorder unspecified Suicidal ideations Plan: -Continue with discharge today as patient has improved and stabilized psychiatrically and is not currently an imminent threat to himself and/or others. Patient will remain at chronically elevated risk for harm to self and/or others due to her impulsivity and personality disorder. -Continue medications: Melatonin 10 mg daily at bedtime for sleep, trazodone 150 mg daily at bedtime when necessary for insomnia, Seroquel 25 mg daily at bedtime for insomnia/mood stabilization, Effexor XR 225 mg daily for mood/anxiety, lithium 300 mg twice a day for suicidal thoughts/mood stabilization, BuSpar 15 mg twice a day for anxiety. -Patient was counseled on the need for medication compliance and appropriate follow-up at mental health and also primary care for medical issues. Patient verbalized understanding and agreed. -Social work to arrange for and conduct family meeting to ensure safety upon discharge and answer any questions/concerns. Social work also to arrange for patients follow up appointments with [facility] for psychiatric care along with follow up with primary care provider. -Patient counseled on abstaining from recreational drugs and marijuana and alcohol. Was informed/educated on the adverse effects on their physical and mental health. Patient verbally agreed and understood. -Patient was instructed to return to the hospital or seek immediate medical care if their psychiatric or medical symptoms do worsen or reoccur. Allergies Allergy/AdvReac Type Severity Reaction Status Date / Time sulfamethoxazole Allergy Unknown Rash/Hives, Verified 11/20/22 17:19 [From Bactrim] SOB trimethoprim [From Bactrim] Allergy Unknown Rash/Hives, Verified 11/20/22 17:19 SOB Laboratory Results WBC 11.3 k/uL (3.8-10.6) H 11/20/22 16:01 RBC 4.51 m/uL (3.80-5.40) 11/20/22 16:01 Hgb 12.3 gm/dL (11.4-16.0) 11/20/22 16:01 Hct 38.9 % (34.0-46.0) 11/20/22 16:01 MCV 86.3 fL (80.0-100.0) 11/20/22 16:01 MCH 27.3 pg (25.0-35.0) 11/20/22 16:01 MCHC 31.6 g/dL (31.0-37.0) 11/20/22 16:01 RDW 13.4 % (11.5-15.5) 11/20/22 16:01 Plt Count 343 k/uL (150-450) 11/20/22 16:01 MPV 10.7 11/20/22 16:01 Neutrophils % 72 % 11/20/22 16:01 Lymphocytes % 19 % 11/20/22 16:01 Monocytes % 5 % 11/20/22 16:01 Eosinophils % 2 % 11/20/22 16:01 Basophils % 1 % 11/20/22 16:01 Neutrophils # 8.1 k/uL (1.3-7.7) H 11/20/22 16:01 Lymphocytes # 2.2 k/uL (1.0-4.8) 11/20/22 16:01 Monocytes # 0.6 k/uL (0-1.0) 11/20/22 16:01 Eosinophils # 0.2 k/uL (0-0.7) 11/20/22 16:01 Basophils # 0.1 k/uL (0-0.2) 11/20/22 16:01 Hypochromasia Slight 11/20/22 16:01 Sodium 137 mmol/L (137-145) 11/24/22 09:15 Potassium 5.1 mmol/L (3.5-5.1) 11/24/22 09:15 Chloride 102 mmol/L (98-107) 11/24/22 09:15 Carbon Dioxide 23 mmol/L (22-30) 11/24/22 09:15 Anion Gap 12 mmol/L 11/24/22 09:15 BUN 21 mg/dL (7-17) H 11/24/22 09:15 Creatinine 1.02 mg/dL (0.52-1.04) 11/24/22 09:15 Est GFR (CKD-EPI)AfAm 67 (>60 ml/min/1.73 sqM) 11/24/22 09:15 Est GFR (CKD-EPI)NonAf 58 (>60 ml/min/1.73 sqM) 11/24/22 09:15 Glucose 185 mg/dL (74-99) H 11/24/22 09:15 POC Glucose (mg/dL) 87 mg/dL (70-110) 12/02/22 07:52 POC Glu [employer] ID Mica Johnson 12/02/22 07:[address] Glu mg/dL 120 mg/dL 11/20/22 16:01 Hemoglobin A1c 5.8 % (<=6.0) 11/20/22 16:01 Calcium 10.0 mg/dL (8.4-10.2) 11/24/22 09:15 Total Bilirubin 0.7 mg/dL (0.2-1.3) 11/20/22 16:01 AST 22 U/L (14-36) 11/20/22 16:01 ALT 16 U/L (4-34) 11/20/22 16:01 Alkaline Phosphatase 55 U/L (38-126) 11/20/22 16:01 Total Protein 6.9 g/dL (6.3-8.2) 11/20/22 16:01 Albumin 4.2 g/dL (3.5-5.0) 11/20/22 16:01 Urine Color Colorless 12/01/22 05:20 Urine Appearance Clear (Clear) 12/01/22 05:20 Urine pH 5.5 (5.0-8.0) 12/01/22 05:20 Ur Specific [place] 1.009 (1.001-1.035) 12/01/22 05:20 Urine Protein Negative (Negative) 12/01/22 05:20 Urine Glucose (UA) Negative (Negative) 12/01/22 05:20 Urine Ketones Negative (Negative) 12/01/22 05:20 Urine Blood Negative (Negative) 12/01/22 05:20 Urine Nitrite Negative (Negative) 12/01/22 05:20 Urine Bilirubin Negative (Negative) 12/01/22 05:20 Urine Urobilinogen <2.0 mg/dL (<2.0) 12/01/22 05:20 Ur Leukocyte Esterase Small (Negative) H 12/01/22 05:20 Urine RBC <1 /hpf (0-5) 12/01/22 05:20 Urine WBC 10 /hpf (0-5) H 12/01/22 05:20 Ur Squamous Epith Cells 1 /hpf (0-4) 12/01/22 05:20 Urine Bacteria Occasional /hpf (None) H 12/01/22 05:20 Hyaline Casts 6 /lpf (0-2) H 11/20/22 16:13 Urine Mucus Rare /hpf (None) H 12/01/22 05:20 Salicylates <1.0 mg/dL 11/20/22 16:01 Urine Opiates Screen Not Detected (NotDetected) 11/20/22 16:13 Ur Oxycodone Screen Not Detected (NotDetected) 11/20/22 16:13 Urine Methadone Screen Not Detected (NotDetected) 11/20/22 16:13 Ur Propoxyphene Screen Not Detected (NotDetected) 11/20/22 16:13 Acetaminophen <10.0 ug/mL 11/20/22 16:01 Ur Barbiturates Screen Not Detected (NotDetected) 11/20/22 16:13 U Tricyclic Antidepress Not Detected (NotDetected) 11/20/22 16:13 Ur Phencyclidine Scrn Not Detected (NotDetected) 11/20/22 16:13 Ur Amphetamines Screen Not Detected (NotDetected) 11/20/22 16:13 U Methamphetamines Scrn Not Detected (NotDetected) 11/20/22 16:13 U Benzodiazepines Scrn Not Detected (NotDetected) 11/20/22 16:13 [place] 0.9 mmol/L 11/30/22 10:04 Urine Cocaine Screen Not Detected (NotDetected) 11/20/22 16:13 U Marijuana (THC) Screen Not Detected (NotDetected) 11/20/22 16:13 Coronavirus (PCR) Not Detected (Not Detectd) 11/20/22 16:01 Vital Signs Temp 97.1 F L 12/02/22 06:40 Pulse 65 12/02/22 06:40 Resp 18 12/02/22 06:40 BP 142/70 12/02/22 06:40 Pulse Ox 99 12/02/22 06:40 FiO2 Patient Condition at Discharge: Undetermined Plan - Discharge Summary Discharge Rx Participant: Yes New Discharge Prescriptions: New QUEtiapine [SEROquel] 25 mg PO HS 14 Days #14 tab busPIRone HCL [Buspar] 15 mg PO BID 14 Days #56 tablet Venlafaxine HCl [Effexor XR] 225 mg PO DAILY 14 Days #14 tab [place] Carbonate 300 mg PO BID 14 Days #28 cap Melatonin 10 mg PO HS 14 Days #28 tab traZODone HCL 150 mg PO HS PRN 14 Days #14 tablet PRN Reason: Insomnia Continue Atorvastatin [Lipitor] 80 mg PO HS Levothyroxine Sodium 150 mcg PO DAILY Albuterol Sulfate [Ventolin HFA] 2 puff INHALATION RT-Q4H PRN PRN Reason: Shortness Of Breath Aspirin 81 mg PO DAILY chew Potassium Chloride ER [K-Dur 10] 10 meq PO DAILY Furosemide [Lasix] 40 mg PO DAILY Pantoprazole [Protonix] 40 mg PO DAILY Fluticasone Nasal [place] [Flonase Nasal [place]] 1 - 2 spray EA NOSTRIL DAILY PRN PRN Reason: Congestion INSULIN ASPART (NovoLOG) [NovoLOG (formulary)] See Protocol SQ ACHS metFORMIN HCL ER [Glucophage XR] 1,000 mg PO BID Discontinued lamoTRIgine [lamoTRIgine ER] 50 mg PO HS lamoTRIgine [lamoTRIgine ER] 100 mg PO HS Melatonin 5 mg PO HS Acetaminophen Tab [Tylenol] 650 mg PO Q6HR PRN tab PRN Reason: Fever And/ Or Pain [place] Carbonate 150 mg PO HS LORazepam [Ativan] 0.5 mg PO BID PRN PRN Reason: Anxiety [place] Carbonate [[place] Carbonate ER] 300 mg PO HS Vortioxetine Hydrobromide [Trintellix] 5 mg PO DAILY Discharge Medication List Atorvastatin [Lipitor] 80 mg PO HS 01/22/18 [History] Levothyroxine Sodium 150 mcg PO DAILY 01/22/18 [History] Albuterol Sulfate [Ventolin HFA] 2 puff INHALATION RT-Q4H PRN 10/10/19 [History] Aspirin 81 mg PO DAILY chew 10/15/19 [Rx] Furosemide [Lasix] 40 mg PO DAILY 04/27/20 [History] Potassium Chloride ER [K-Dur 10] 10 meq PO DAILY 04/27/20 [History] Pantoprazole [Protonix] 40 mg PO DAILY 09/16/22 [History] metFORMIN HCL ER [Glucophage XR] 1,000 mg PO BID 09/16/22 [History] Fluticasone Nasal [place] [Flonase Nasal [place]] 1 - 2 spray EA NOSTRIL DAILY PRN 11/20/22 [History] INSULIN ASPART (NovoLOG) [NovoLOG (formulary)] See Protocol SQ ACHS 11/20/22 [History] [place] Carbonate 300 mg PO BID 14 Days #28 cap 12/02/22 [Rx] Melatonin 10 mg PO HS 14 Days #28 tab 12/02/22 [Rx] QUEtiapine [SEROquel] 25 mg PO HS 14 Days #14 tab 12/02/22 [Rx] Venlafaxine HCl [Effexor XR] 225 mg PO DAILY 14 Days #14 tab 12/02/22 [Rx] busPIRone HCL [Buspar] 15 mg PO BID 14 Days #56 tablet 12/02/22 [Rx] traZODone HCL 150 mg PO HS PRN 14 Days #14 tablet 12/02/22 [Rx] Follow up Appointment(s)/Referral(s): Jacki Freeman DO [Primary Care Provider] - 1-2 days Activity/Diet/Wound Care/Special Instructions: Avoid the use of street drugs and alcohol. Take all medications as prescribed. When you are in need of refills on your medications, please contact your medical provider and/or outpatient psychiatrist/provider to have this done. Please go to your scheduled outpatient appointment for aftercare treatment. If symptoms return or become worse, call the crisis line at and/or go to the nearest emergency room for evaluation. National Suicide Hotline 128. Discharge Disposition: HOME SELF-CARE
[2022-12-02 12:51] LABS: Glucose,Whole Blood 86 mg/dL (70-110)
[2022-12-02 17:50] LABS: Glucose,Whole Blood 159 mg/dL (70-110)
[2022-12-04 03:14] LABS: Glucose,Whole Blood 110 mg/dL (70-110)
[2022-12-04 03:14] LABS: Glucose,Whole Blood 91 mg/dL (70-110)
[2022-12-04 03:14] LABS: Glucose,Whole Blood 99 mg/dL (70-110)
== END 2022-12-02 21:00 | disposition home or self-care (01) | DRG 881 ==
LOC: EC 12:50 → 3MHU 20:19
PROVIDERS: ADMIT Psychiatry & Neurology Psychiatry; ATTEND Psychiatry & Neurology Psychiatry
DX: F32.A Depression, unspecified (principal); R45.851 Suicidal ideations; E03.9 Hypothyroidism, unspecified; E66.01 Morbid (severe) obesity due to excess calories; E78.5 Hyperlipidemia, unspecified; F41.0 Panic disorder [episodic paroxysmal anxiety]; F45.9 Somatoform disorder, unspecified; F51.5 Nightmare disorder; F60.3 Borderline personality disorder; G47.00 Insomnia, unspecified; G47.30 Sleep apnea, unspecified; I10 Essential (primary) hypertension; M47.816 Spondylosis without myelopathy or radiculopathy, lumbar region; F40.240 Claustrophobia; E11.9 Type 2 diabetes mellitus without complications; M48.061 Spinal stenosis, lumbar region without neurogenic claudication; K21.9 Gastro-esophageal reflux disease without esophagitis; G93.32 Myalgic encephalomyelitis/chronic fatigue syndrome; U09.9 Post COVID-19 condition, unspecified; K57.90 Diverticulosis of intestine, part unspecified, without perforation or abscess without bleeding; Z28.21 Immunization not carried out because of patient refusal; Z63.4 Disappearance and death of family member; Z63.5 Disruption of family by separation and divorce; Z79.82 Long term (current) use of aspirin; Z79.84 Long term (current) use of oral hypoglycemic drugs; Z79.890 Hormone replacement therapy; Z82.49 Family history of ischemic heart disease and other diseases of the circulatory system; Z83.3 Family history of diabetes mellitus; Z87.442 Personal history of urinary calculi; Z86.69 Personal history of other diseases of the nervous system and sense organs; Z88.2 Allergy status to sulfonamides
CPT/HCPCS: 36415; 80048; 80053; 80143; 80178; 80179; 80306; 81001; 82075; 83036; 85025; 87635; 99285

== ENCOUNTER 2023-01-14 20:00 | Emergency (ER) | payer MEDICARE, OTHER ==
[2023-01-14 20:25] VITALS: RESP 18; TEMP 98.2
--- NOTE | 2023-01-14 21:28 | ED ---
Psych HPI - General Chief Complaint: Psychiatric Symptoms Stated Complaint: Mental Health Time Seen by Provider: 01/14/23 21:15 Source: patient, family, EMS, RN notes reviewed Mode of arrival: wheelchair - History of Present Illness Initial Comments: Patient is a 67 old female presented ER with chief complaint of suicide ideation. Patient states she went to her PCP this morning and stated that she does have thoughts of killing herself. Patient states that she did plan on taking pills to commit suicide. Patient is taking buspirone, venlafaxine, lithium and trazodone [id number]. Patient has no other complaints at this time. - Related Data Home Medications Medication Instructions Recorded Confirmed Atorvastatin [Lipitor] 80 mg PO HS 01/22/18 11/20/22 Levothyroxine Sodium 150 mcg PO DAILY 01/22/18 11/20/22 Albuterol Sulfate [Ventolin HFA] 2 puff INHALATION RT-Q4H PRN 10/10/19 11/20/22 Furosemide [Lasix] 40 mg PO DAILY 04/27/20 11/20/22 Potassium Chloride ER [K-Dur 10] 10 meq PO DAILY 04/27/20 11/20/22 Pantoprazole [Protonix] 40 mg PO DAILY 09/16/22 11/20/22 metFORMIN HCL ER [Glucophage XR] 1,000 mg PO BID 09/16/22 11/20/22 Fluticasone Nasal [place] [Flonase 1 - 2 spray EA NOSTRIL DAILY PRN 11/20/22 11/20/22 Nasal [place]] INSULIN ASPART (NovoLOG) [NovoLOG See Protocol SQ ACHS 11/20/22 11/20/22 (formulary)] Previous Rx's Medication Instructions Recorded Aspirin 81 mg PO DAILY chew 10/15/19 [place] Carbonate 300 mg PO BID 14 Days #28 cap 12/02/22 Melatonin 10 mg PO HS 14 Days #28 tab 12/02/22 QUEtiapine [SEROquel] 25 mg PO HS 14 Days #14 tab 12/02/22 Venlafaxine HCl [Effexor XR] 225 mg PO DAILY 14 Days #14 tab 12/02/22 busPIRone HCL [Buspar] 15 mg PO BID 14 Days #56 tablet 12/02/22 traZODone HCL 150 mg PO HS PRN 14 Days #14 tablet 12/02/22 Allergies Allergy/AdvReac Type Severity Reaction Status Date / Time sulfamethoxazole Allergy Unknown Rash/Hives, Verified 11/20/22 17:19 [From Bactrim] SOB trimethoprim [From Bactrim] Allergy Unknown Rash/Hives, Verified 11/20/22 17:19 SOB Review of Systems ROS Statement: Those systems with pertinent positive or pertinent negative responses have been documented in the HPI. ROS Other: All systems not noted in ROS Statement are negative. 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 Past Anesthesia/Blood Transfusion Reactions: Family History of Problems w/ Anesthesia, Motion Sickness Additional Past Anesthesia/Blood Transfusion Reaction / Comment(s): raymond alvarez. pt's sister had diff breathing from anesthesia Past Psychological History: Anxiety, Depression, Panic Disorder Smoking Status: Never smoker Past Alcohol Use History: None Reported Past Drug Use History: None Reported - Past Family History Son(s) Family Medical History: No Reported History Additional Family Medical History / Comment(s): She has 2 sons with no major medical problems. Patient does not have any daughters. Mother Family Medical History: Renal Disease Additional Family Medical History / Comment(s): Mother at age 80 from renal failure. Father Family Medical History: Coronary Artery Disease (CAD), CVA/TIA Additional Family Medical History / Comment(s): Father at age 67 with history of NV and stroke Brother(s) Family Medical History: Cancer, Coronary Artery Disease (CAD), Diabetes Mellitus, Hyperlipidemia, Hypertension Additional Family Medical History / Comment(s): She has total of 5 brothers and all had history of coronary artery disease and CABG, hypertension, hyperlipidemia, diabetes. Sister(s) Family Medical History: Cancer Additional Family Medical History / Comment(s): one sister of colon cancer, second sister had ovarian cancer General Exam Limitations: no limitations General appearance: alert, in no apparent distress Respiratory exam: Present: normal lung sounds bilaterally. Absent: respiratory distress, wheezes, rales, rhonchi, stridor Cardiovascular Exam: Present: regular rate, normal rhythm, normal heart sounds. Absent: systolic murmur, diastolic murmur, rubs, gallop, clicks Neurological exam: Present: alert, oriented X3, CN II-XII intact Psychiatric exam: Present: normal affect, normal mood Skin exam: Present: warm, dry, intact, normal color. Absent: rash Course Vital Signs 01/14/23 20:02 Temperature 98.2 F Pulse Rate 61 Respiratory 18 Rate Blood Pressure 139/86 O2 Sat by Pulse 95 Oximetry Medical Decision Making - Medical Decision Making Was pt. sent in by a medical professional or institution (, PA, [employer], urgent care, hospital, or longterm...) When possible be specific @ -Her PCP, Dr. Martin Did you speak to anyone other than the patient for history (EMS, parent, family, police, friend...)? What history was obtained from this source @ -Family Did you review nursing and triage notes (agree or disagree)? Why? @ -I reviewed and agree with nursing and triage notes Were old charts reviewed (outside hosp., previous admission, EMS record, old EKG, old radiological studies, urgent care reports/EKG's, longterm records)? Report findings @ -No old charts were reviewed Differential Diagnosis (chest pain, altered mental status, abdominal pain women, abdominal pain men, vaginal bleeding, weakness, fever, dyspnea, syncope, headach e, dizziness, GI bleed, back pain, seizure, CVA, palpatations, mental health, musculoskeletal)? @ -Differential Mental Health: Depression, anxiety, bipolar, psychosis, schizophrenia, borderline personality, situational depression, adjustment disorder, behavioral disorder, brain tumor, malingering, substance abuse, encephalopathy, medication reaction, dementia, hypothyroidism, degenerative neurologic disorder, lupus.... This is not meant to be all-inclusive listble] EKG interpreted by me (3pts min.). @ -None X-rays interpreted by me (1pt min.). @ -None done CT interpreted by me (1pt min.). @ -None done U/S interpreted by me (1pt. min.). @ -None done What testing was considered but not performed or refused? (CT, X-rays, U/S, labs)? Why? @ -None What meds were considered but not given or refused? Why? @ -None Did you discuss the management of the patient with other professionals (professionals i.e. , PA, [employer], lab, RT, psych nurse, director social, cutter machine tender, teacher, risk officer, cyanide case hardener)? Give summary @ -Yes, I discussed this case with Beulah from EPS. She stated that she is cleared for discharge. She states the patient has strong family support as she does with her sons. Patient denied any SI or HI to her. Her son, at bedside, states that he is going to keep a close eye on her and put all of the medication out of her reach. Patient has follow-up with psychiatrist and counselor next week. Was smoking cessation discussed for >3mins.? @ -No Was critical care preformed (if so, how long)? @ -No Were there social determinants of health that impacted care today? How? (Homelessness, low income, unemployed, alcoholism, drug addiction, transportation, low edu. Level, literacy, decrease access to med. care, senior care, rehab)? @ -No Was there de-escalation of care discussed even if they declined (Discuss DNR or withdrawal of care, Hospice)? DNR status @ -No What co-morbidities impacted this encounter? (DM, HTN, Smoking, COPD, CAD, Cancer, CVA, ARF, Chemo, Hep., AIDS, mental health diagnosis, sleep apnea, morbid obesity)? @ -Mental health Was patient admitted / discharged? Hospital course, mention meds given and route, prescriptions, significant lab abnormalities, going to OR and other pertinent info. @ -Discharge. Patient was medically cleared for psychiatric evaluation. Beulah from EPS spoke with the patient and decided she is safe for discharge. She states the patient has strong family support as she lives with her sons. Patient denied any SI or HI to her. Her son, at bedside, states that he is going to keep a close eye on her and put all of the medications out of her reach. Patient has follow-up with psychiatrist and counselor next week. Patient will be discharged in stable condition with follow-up to psychiatrist and PCP. Undiagnosed new problem with uncertain prognosis? @ -No Drug Therapy requiring intensive monitoring for toxicity (Heparin, Nitro, Insulin, Cardizem)? @ -No Were any procedures done? @ -No Diagnosis/symptom? @ -Depression Acute, or Chronic, or Acute on Chronic? @ -Acute on chronic Uncomplicated (without systemic symptoms) or Complicated (systemic symptoms)? @ -Uncomplicated Side effects of treatment? @ -No Exacerbation, Progression, or Severe Exacerbation? @ -No Poses a threat to life or bodily function? How? (Chest pain, [place], NV, pneumonia, PE, COPD, DKA, ARF, appy, cholecystitis, CVA, Diverticulitis, Homicidal, Suicidal, threat to staff... and all critical care pts) @ -No Disposition Clinical Impression: Depression Disposition: HOME SELF-CARE Condition: Stable Additional Instructions: Please return to the Emergency Department if symptoms worsen or any other concerns. Is patient prescribed a controlled substance at d/c from ED?: No Referrals: Jacki Freeman DO [Primary Care Provider] - 1-2 days Time of Disposition: 23:10
[2023-01-14 23:24] VITALS: BP 140/64; PULSE 70
== END 2023-01-14 23:24 | disposition home or self-care (01) ==
LOC: EC 20:00
DX: F32.A Depression, unspecified (principal); E11.9 Type 2 diabetes mellitus without complications; E78.5 Hyperlipidemia, unspecified; J45.909 Unspecified asthma, uncomplicated; K21.9 Gastro-esophageal reflux disease without esophagitis; F41.9 Anxiety disorder, unspecified; E07.9 Disorder of thyroid, unspecified; G47.30 Sleep apnea, unspecified; Z79.899 Other long term (current) drug therapy; Z79.82 Long term (current) use of aspirin; Z79.890 Hormone replacement therapy; Z79.4 Long term (current) use of insulin; Z79.84 Long term (current) use of oral hypoglycemic drugs; Z88.2 Allergy status to sulfonamides; Z88.1 Allergy status to other antibiotic agents
CPT/HCPCS: 82075; 99285

== ENCOUNTER 2023-01-21 11:54 | Inpatient (IN) | payer MEDICARE, MEDICAID ==
--- NOTE | 2023-01-21 12:12 | ED ---
General Adult HPI - General Source: patient, EMS, RN notes reviewed Mode of arrival: EMS Limitations: no limitations <Mitchell Goodwin - Last Filed: 01/21/23 12:05> - History of Present Illness Associated Symptoms: denies other symptoms Treatments Prior to Arrival: none <Go Jean Baptiste - Last Filed: 01/21/23 20:22> - General Stated complaint: mental health Time Seen by Provider: 01/21/23 12:05 - History of Present Illness Initial comments: 67-year-old female presents emergency Department with chief complaint of depression, suicidal ideation. Patient was on the phone with her therapist in which she express her feelings and was sent here for evaluation. Patient had recent ER visit for similar complaints. Patient states she plans overdose on pills. (Mitchell Goodwin) This is a 67-year-old female who states that she's having active suicidal thoughts (Go Jean Baptiste) - Related Data Home Medications Medication Instructions Recorded Confirmed Atorvastatin [Lipitor] 80 mg PO HS 01/22/18 01/21/23 Levothyroxine Sodium 150 mcg PO DAILY 01/22/18 01/21/23 Albuterol Sulfate [Ventolin HFA] 2 puff INHALATION RT-Q4H PRN 10/10/19 01/21/23 Furosemide [Lasix] 40 mg PO DAILY PRN 04/27/20 01/21/23 Potassium Chloride ER [K-Dur 10] 10 meq PO DAILY 04/27/20 01/21/23 Pantoprazole [Protonix] 40 mg PO DAILY 09/16/22 01/21/23 metFORMIN HCL ER [Glucophage XR] 1,000 mg PO BID 09/16/22 01/21/23 Fluticasone Nasal Weed [Flonase 2 spray EA NOSTRIL DAILY PRN 11/20/22 01/21/23 Nasal Weed] Acetaminophen-Codeine 300-30mg 1 tab PO Q6H PRN 01/21/23 01/21/23 [Tylenol w/codeine #3] Nystatin [Nystop] 1 applic TOPICAL BID 01/21/23 01/21/23 Ondansetron [Zofran] 4 mg PO Q8HR PRN 01/21/23 01/21/23 Semaglutide [Rybelsus] 7 mg PO DAILY 01/21/23 01/21/23 Valsartan [Diovan] 80 mg PO HS 01/21/23 01/21/23 busPIRone HCL 15 mg PO BID 01/21/23 01/21/23 traZODone HCL 150 mg PO HS 01/21/23 01/21/23 Previous Rx's Medication Instructions Recorded Aspirin 81 mg PO DAILY chew 10/15/19 Larose Carbonate 300 mg PO BID 14 Days #28 cap 12/02/22 Venlafaxine HCl [Effexor XR] 225 mg PO DAILY 14 Days #14 tab 12/02/22 Allergies Allergy/AdvReac Type Severity Reaction Status Date / Time sulfamethoxazole Allergy Unknown Rash/Hives, Verified 01/21/23 18:55 [From Bactrim] SOB trimethoprim [From Bactrim] Allergy Unknown Rash/Hives, Verified 01/21/23 18:55 SOB Review of Systems ROS Other: All systems not noted in ROS Statement are negative. <Mitchell Goodwin - Last Filed: 01/21/23 12:05> ROS Other: All systems not noted in ROS Statement are negative. <Go Jean Baptiste - Last Filed: 01/21/23 20:22> ROS Statement: Those systems with pertinent positive or pertinent negative responses have been documented in the HPI. 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 Past Anesthesia/Blood Transfusion Reactions: Family History of Problems w/ Anesthesia, Motion Sickness Additional Past Anesthesia/Blood Transfusion Reaction / Comment(s): clausterphobia. pt's sister had diff breathing from anesthesia Past Psychological History: Anxiety, Depression, Panic Disorder Smoking Status: Never smoker Past Alcohol Use History: None Reported Past Drug Use History: None Reported - Past Family History Son(s) Family Medical History: No Reported History Additional Family Medical History / Comment(s): She has 2 sons with no major medical problems. Patient does not have any daughters. Mother Family Medical History: Renal Disease Additional Family Medical History / Comment(s): Mother at age 80 from renal failure. Father Family Medical History: Coronary Artery Disease (CAD), CVA/TIA Additional Family Medical History / Comment(s): Father at age 67 with history of NV and stroke Brother(s) Family Medical History: Cancer, Coronary Artery Disease (CAD), Diabetes Mellitus, Hyperlipidemia, Hypertension Additional Family Medical History / Comment(s): She has total of 5 brothers and all had history of coronary artery disease and CABG, hypertension, hyperlipidemia, diabetes. Sister(s) Family Medical History: Cancer Additional Family Medical History / Comment(s): one sister of colon cancer, second sister had ovarian cancer <Mitchell Goodwin M - Last Filed: 01/21/23 12:05> General Exam <Mitchell Goodwin M - Last Filed: 01/21/23 12:05> General appearance: alert, in no apparent distress Head exam: Present: atraumatic, normocephalic, normal inspection Eye exam: Present: normal appearance, PERRL, EOMI. Absent: scleral icterus, conjunctival injection, periorbital swelling ENT exam: Present: normal exam, mucous membranes moist Neck exam: Present: normal inspection. Absent: tenderness, meningismus, lymphadenopathy Respiratory exam: Present: normal lung sounds bilaterally. Absent: respiratory distress, wheezes, rales, rhonchi, stridor Cardiovascular Exam: Present: regular rate, normal rhythm, normal heart sounds. Absent: systolic murmur, diastolic murmur, rubs, gallop, clicks GI/Abdominal exam: Present: soft, normal bowel sounds. Absent: distended, tend erness, guarding, rebound, rigid Extremities exam: Present: normal inspection, full ROM, normal capillary refill. Absent: tenderness, pedal edema, joint swelling, calf tenderness Back exam: Present: normal inspection Neurological exam: Present: alert, oriented X3, CN II-XII intact Psychiatric exam: Present: normal affect, normal mood Skin exam: Present: warm, dry, intact, normal color. Absent: rash <Go Jean Baptiste - Last Filed: 01/21/23 20:22> - General Exam Comments Initial Comments: Visual Physical Exam Vital signs reviewed General: Well-appearing, nontoxic, no acute distress. Head: Normocephalic, atraumatic Eyes: PERRLA, EOMI ENT: Airway patent Chest: Nonlabored breathing Skin: No visual rash, normal skin tone Neuro: Alert and oriented 3 Musculoskeletal: No gross abnormalities (Mitchell Goodwin) Course <Go Jean Baptiste - Last Filed: 01/21/23 20:22> Vital Signs 01/21/23 11:58 Temperature 98.0 F Pulse Rate 67 Respiratory 18 Rate Blood Pressure 115/75 O2 Sat by Pulse 97 Oximetry - Reevaluation(s) Reevaluation #1: 01/21/23 20:22 Records reviewed (Go Jean Baptiste) Reevaluation #2: 01/21/23 20:22 Medical clear for psychiatric evaluation (Go Jean Baptiste) Medical Decision Making <Mitchell Goodwin - Last Filed: 01/21/23 12:05> <Go Jean Baptiste - Last Filed: 01/21/23 20:22> - Medical Decision Making I completed the quick note portion of this chart signed Mitchell Goodwin PA-C (Mitchell Goodwin) 67 female DF for evaluation of psychiatric illness patient is seen and evaluated by psychiatry here in the ER will admit for psychiatric evaluation and treatment (Go Jean Baptiste) - Lab Data Lab Results 01/21/23 01/21/23 Range/Units 16:12 17:15 Urine Opiates Screen Not Detected (NotDetected) Ur Oxycodone Screen Not Detected (NotDetected) Urine Methadone Screen Not Detected (NotDetected) Ur Propoxyphene Screen Not Detected (NotDetected) Ur Barbiturates Screen Not Detected (NotDetected) U Tricyclic Antidepress Not Detected (NotDetected) Ur Phencyclidine Scrn Not Detected (NotDetected) Ur Amphetamines Screen Not Detected (NotDetected) U Methamphetamines Scrn Not Detected (NotDetected) U Benzodiazepines Scrn Not Detected (NotDetected) Urine Cocaine Screen Not Detected (NotDetected) U Marijuana (THC) Screen Not Detected (NotDetected) SARS-CoV-2 (PCR) Not Detected (Not Detectd) Disposition <Mitchell Goodwin M - Last Filed: 01/21/23 12:05> Is patient prescribed a controlled substance at d/c from ED?: No <Go Jean Baptiste - Last Filed: 01/21/23 20:22> Clinical Impression: Acute anxiety, Adjustment reaction of adult life, Major depressive disorder, recurrent severe without psychotic features, Suicidal ideation, Suicidal behavior, Depressive disorder Disposition: TRANSFER TO PSYCH HOSP/UNIT Condition: Fair Referrals: Jacki Freeman DO [Primary Care Provider] - 1-2 days
[2023-01-21 16:47] LABS: Amphetamine Screen,Urine Not Detected (NotDetected); Barbiturate Screen,Urine Not Detected (NotDetected); Benzodiazepines Screen,Urine Not Detected (NotDetected); Cocaine Screen,Urine Not Detected (NotDetected); Methadone Screen, Urine Not Detected (NotDetected); Opiate Screen,Urine Not Detected (NotDetected); Oxycodone Screen, Urine Not Detected (NotDetected); Phencyclidine Screen,Urine Not Detected (NotDetected); Tricyclic Antidepressant,Urine Not Detected (NotDetected); Urn Cannabinoid Scrn Not Detected (NotDetected)
[2023-01-21] MEDS ORDERED: LORazepam 2 MG/ML INJ IM PRN (21:14)
[2023-01-21] MEDS ORDERED: HALOPERIDOL LACTATE 5 MG/ML 1 ML VIAL IM PRN (21:14)
[2023-01-21] MEDS ORDERED: MAGNESIUM HYDROXIDE 2,400 MG/30 ML CUP PO PRN (21:14)
[2023-01-21] MEDS ORDERED: ACETAMINOPHEN TAB 325 MG TAB PO PRN (21:14)
[2023-01-21] MEDS ORDERED: IBUPROFEN 600 MG TAB PO PRN (21:14)
[2023-01-21] MEDS ORDERED: LORazepam 1 MG TAB PO PRN (21:14)
[2023-01-21] MEDS ORDERED: haloperidoL 5 MG TAB PO PRN (21:14)
[2023-01-21] MEDS ORDERED: FLUTICASONE 50MCG/SPRAY NASAL 16GM EA NOSTRIL PRN (21:19)
[2023-01-21] MEDS ORDERED: FUROSEMIDE 40 MG TAB PO PRN (21:19)
[2023-01-21] MEDS: LITHIUM CARBONATE 300 MG CAP PO SCH (21:52)
[2023-01-21] MEDS: busPIRone HCl 5 MG TAB PO SCH (21:52)
[2023-01-21] MEDS: traZODone HCL 50 MG TAB PO SCH (21:52)
[2023-01-21 22:01] LABS: Glucose,Whole Blood 113 mg/dL (70-110)
[2023-01-21] MEDS: ATORVASTATIN 80 MG TAB PO SCH (22:09)
[2023-01-21] MEDS: VALSARTAN 80 MG TAB PO SCH (22:09)
[2023-01-21 22:49] LABS: Amorphous Sediment,Urine Few /hpf; Appearance,Urine Cloudy (Clear); Bacteria,Urine Many /hpf; Bilirubin,Urine Negative (Negative); Blood,Urine Negative (Negative); Color,Urine Yellow; Glucose,Urine (UA) Negative (Negative); Granular Casts,Urine 4 /lpf (0); Hyaline Casts,Urine 37 /lpf (0-2); Ketones,Urine 1+ (Negative); Leukocyte Esterase,Urine Large (Negative); Mucus,Urine Many /hpf; Nitrite,Urine Positive (Negative); PH, Urine 6.5 (5.0-8.0); Protein,Urine 2+ (Negative); RBC,Urine 4 /hpf (0-5); Specific Gravity,Urine 1.028 (1.001-1.035); Squamous Epithelial Cell,Urine 4 /hpf (0-4); Urobilinogen,Urine <2.0 mg/dL (<2.0); WBC,Urine 167 /hpf (0-5)
[2023-01-22] MEDS: LEVOTHYROXINE 75 MCG TAB PO SCH (06:04)
[2023-01-22 08:07] LABS: Glucose,Whole Blood 124 mg/dL (70-110)
[2023-01-22] MEDS: NYSTATIN 100,000 UNIT/GM POWD 15 GM TOPICAL SCH ×2 (09:06→21:00)
[2023-01-22] MEDS: metFORMIN 500 MG TAB PO SCH ×2 (09:06→20:49)
[2023-01-22] MEDS: POTASSIUM CHLORIDE ER 10 MEQ TAB.ER.PRT PO SCH (09:07)
[2023-01-22] MEDS: busPIRone HCl 5 MG TAB PO SCH (09:07)
[2023-01-22] MEDS: ASPIRIN 81 MG PO SCH (09:07)
[2023-01-22] MEDS: VENLAFAXINE HCL ER 75 MG CAP PO SCH (09:07)
[2023-01-22] MEDS: PANTOPRAZOLE 40 MG TABLET PO SCH (09:07)
[2023-01-22] MEDS: LITHIUM CARBONATE 300 MG CAP PO SCH ×2 (09:07→20:49)
[2023-01-22 11:53] LABS: Basophils % (A) 0 %; Eosinophils # (A) 0.2 k/uL (0-0.7); Eosinophils % (A) 2 %; HCT 39.1 % (34.0-46.0); HGB 12.4 gm/dL (11.4-16.0); Hypochromasia Slight; Lymphocytes # (A) 1.5 k/uL (1.0-4.8); Lymphocytes % (A) 15 %; MCH 26.8 pg (25.0-35.0); MCHC 31.7 g/dL (31.0-37.0); MCV 84.7 fL (80.0-100.0); Mean Platelet Volume 9.8; Monocytes # (A) 0.7 k/uL (0-1.0); Monocytes % (A) 7 %; Neutrophils # (A) 7.1 k/uL (1.3-7.7); Neutrophils % (A) 74 %; Platelet Count 303 k/uL (150-450); RBC 4.61 m/uL (3.80-5.40); RDW 13.9 % (11.5-15.5); WBC 9.6 k/uL (3.8-10.6)
[2023-01-22 11:56] LABS: ALT 18 U/L (4-34); African American GFR (CKD) 74 (>60 ml/min/1.73 sqM); Anion Gap 13 mmol/L; Blood Urea Nitrogen 15 mg/dL (7-17); Calcium 9.4 mg/dL (8.4-10.2); Carbon Dioxide 21 mmol/L (22-30); Chloride 104 mmol/L (98-107); Glucose 126 mg/dL (74-99); Non-African American GFR(CKD) 64 (>60 ml/min/1.73 sqM); Sodium 138 mmol/L (137-145); Total Bilirubin 0.9 mg/dL (0.2-1.3); Total Protein 6.7 g/dL (6.3-8.2)
[2023-01-22 12:03] LABS: AST 26 U/L (14-36); Alkaline Phosphatase 53 U/L (38-126)
--- NOTE | 2023-01-22 12:57 | P.HP ---
Psychiatric H&P - . H&P Date: 01/22/23 History & Physical: Allergies Allergy/AdvReac Type Severity Reaction Status Date / Time sulfamethoxazole Allergy Unknown Rash/Hives, Verified 01/22/23 00:59 [From Bactrim] SOB trimethoprim [From Bactrim] Allergy Unknown Rash/Hives, Verified 01/22/23 00:59 SOB Vital Signs Temp 97.7 F 01/22/23 06:27 Pulse 54 L 01/22/23 06:27 Resp 14 01/22/23 06:27 BP 105/63 01/22/23 06:27 Pulse Ox 94 L 01/22/23 06:27 FiO2 Intake & Output 01/21/23 01/22/23 01/22/23 18:59 06:59 18:59 Weight 124.738 kg 123.2 kg Laboratory Last Values POC Glucose (mg/dL) 124 mg/dL (70-110) H 01/22/23 08:06 POC Glu Supply Assistant ID Debby Mccall 01/22/23 08:06 Urine Color Yellow 01/21/23 16:12 Urine Appearance Cloudy (Clear) H 01/21/23 16:12 Urine pH 6.5 (5.0-8.0) 01/21/23 16:12 Ur Specific [place] 1.028 (1.001-1.035) 01/21/23 16:12 Urine Protein 2+ (Negative) H 01/21/23 16:12 Urine Glucose (UA) Negative (Negative) 01/21/23 16:12 Urine Ketones 1+ (Negative) H 01/21/23 16:12 Urine Blood Negative (Negative) 01/21/23 16:12 Urine Nitrite Positive (Negative) H 01/21/23 16:12 Urine Bilirubin Negative (Negative) 01/21/23 16:12 Urine Urobilinogen <2.0 mg/dL (<2.0) 01/21/23 16:12 Ur Leukocyte Esterase Large (Negative) H 01/21/23 16:12 Urine RBC 4 /hpf (0-5) 01/21/23 16:12 Urine WBC 167 /hpf (0-5) H 01/21/23 16:12 Ur Squamous Epith Cells 4 /hpf (0-4) 01/21/23 16:12 Amorphous Sediment Few /hpf (None) H 01/21/23 16:12 Urine Bacteria Many /hpf (None) H 01/21/23 16:12 Hyaline Casts 37 /lpf (0-2) H 01/21/23 16:12 Granular Casts 4 /lpf (0) 01/21/23 16:12 Urine Mucus Many /hpf (None) H 01/21/23 16:12 Urine Opiates Screen Not Detected (NotDetected) 01/21/23 16:12 Ur Oxycodone Screen Not Detected (NotDetected) 01/21/23 16:12 Urine Methadone Screen Not Detected (NotDetected) 01/21/23 16:12 Ur Propoxyphene Screen Not Detected (NotDetected) 01/21/23 16:12 Ur Barbiturates Screen Not Detected (NotDetected) 01/21/23 16:12 U Tricyclic Antidepress Not Detected (NotDetected) 01/21/23 16:12 Ur Phencyclidine Scrn Not Detected (NotDetected) 01/21/23 16:12 Ur Amphetamines Screen Not Detected (NotDetected) 01/21/23 16:12 U Methamphetamines Scrn Not Detected (NotDetected) 01/21/23 16:12 U Benzodiazepines Scrn Not Detected (NotDetected) 01/21/23 16:12 Urine Cocaine Screen Not Detected (NotDetected) 01/21/23 16:12 U Marijuana (THC) Screen Not Detected (NotDetected) 01/21/23 16:12 SARS-CoV-2 (PCR) Not Detected (Not Detectd) 01/21/23 17:15 01/22/23 09:11 IDENTIFYING DATA: Patient is a 67 y/o female, , but , unemployed, lives in a home with her sons, and collects SSD HPI: Patient presented to the hospital ED on 01/21, per EPS note "brought to ER via EMS at the direction of their therapist Naheed Villalobos due to SI w plan to OD, increased depression, anxiety, tearful, overwhelmed, isolating, feels like a burden, tangential, loss of interest, low motivation, frustrated with constant state of depression. Cl has been admitted to [facility] previously and their presentation is a fixated thought process of similar symptoms.". States she wants to end "it" because she is causing pain, and is evasive as to who. And tearfully states she feels she's ruined her sons life, because she feels helpless, and a burden to them.States she had a talk with God, stating if she can't get better, she wants him to take her. She states she is feeling paranoid, and 'keeps looking over her shoulder'. Does not state what she's paranoid about. States her sleep is pretty poor. Appetite is poor. Energy level is poor. Patient counseled on using coping skills. Very soft spoken, with a blank facial expression for most of the interview. Patient has a flight of ideas, and is tangential during the interview. Symatically preoccupied, and catastrophizing, sense of worthlessness. Patient denies, at this time, any suicidal or homicidal ideations intent or plan. At this time patient denies any auditory or visual hallucinations. Patient denies drug/alcohol/tobacco PAST PSYCHIATRIC HISTORY: [place],Trazadone,Effexor XR. Busbar. History of mental health treatment at: [facility] [place]. Sees Naheed Marshall and Carey Corral. Last inpatient in in our unit October of this year. denies previous suicide attempt PMH: as per ED note ALLERGIES: as per EMR CHEMICAL DEPENDENCY HISTORY: as per HPI FAMILY PSYCHIATRIC/SUBSTANCE USE HISTORY: denies SOCIAL HISTORY: Patient was born and raised in [place], high school graduate. 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 , but , unemployed, lives in a home with her sons. lives in [place] 'with his other family' and comes home and stays with her for 6 months out of the year. MENTAL STATUS EXAM: General Appearance: Patient appears to be obese, long, dark hair, glasses. Disheveled appearance. Malodorous. Stated age is alert, cooperative. Patient seated in wheelchair, dressed in a hospital gown.. Patient is in no acute distress and has poor hygiene and grooming Behavior: Patient is calmly seated without any agitated behavior. tearful at times. Speech: Patient's speech is fluent and nonpressured. Mood/Affect: Patient reports their mood is "depressed, anxious", affect is congruent Suicidality/Homicidality: Patient denies having any suicidal or homicidal i deation intent or plan. Perceptions: Patient denies any auditory or visual hallucinations. Though content/process: There is no evidence of any delusional thought content and thought process is chronically poor, focused on sx and medications. Memory and concentration: AOX3, grossly intact for the purposes of this session. Can spell "WORLD" backwards correctly. Judgment and insight: chronically poor STRENGTHS/WEAKNESSES: strength is that patient is resilient. Weakness is that patient has poor judgment and is impulsive INTELLECT: average IMPRESSIONS: Major depressive disorder without psychotic features Borderline personality disorder Somatoform disorder unspecified Suicidal ideations UTI PLAN: -Patient is admitted under voluntary status to MHU for stabilization of psychiatric symptoms and safety. Patient has signed adult voluntary form and medication consent and is placed in patient's chart -Medications : increase Buspar 20mg tid for anxiety, LIthium 300mg bid for SI/mood adjunct trazadone 150 qhs for mood/insomnia Effexor XR 225 mg daily foor anxiety/mood. [place] level tomorrow morning. -Ativan and Haldol PRN for agitation/aggression -Patient was informed of the risks, benefits and side effects of the medication and patient verbally consented to taking the medications. Patient signed med consent form and was placed in chart. -Internal Medicine consult to perform medical evaluation and physical. -NRT -non smoker -SW on board for discharge planning. Encourage patient to participate in groups to work on coping skills. 01/22/23 12:54
[2023-01-22] MEDS: NITROFURANTOIN MONOHYD/M-CRYST 100 MG CAP PO SCH ×2 (12:59→20:50)
[2023-01-22 14:44] VITALS: BMI 53.0
[2023-01-22] MEDS: busPIRone HCl 10 MG TAB PO SCH ×2 (15:50→20:50)
[2023-01-22 18:02] LABS: Glucose,Whole Blood 103 mg/dL (70-110)
[2023-01-22] MEDS: ATORVASTATIN 80 MG TAB PO SCH (20:49)
[2023-01-22] MEDS: VALSARTAN 80 MG TAB PO SCH (20:50)
[2023-01-22] MEDS: traZODone HCL 50 MG TAB PO SCH (20:51)
--- NOTE | 2023-01-23 00:04 | CONS ---
CONSULTATION REASON FOR CONSULTATION: Advice regarding UTI and other medical issues, requested by Psych. HISTORY OF PRESENT ILLNESS: This is a 67-year-old woman with a past medical history of multiple medical problems including asthma and diabetes mellitus, admitted for psychiatric evaluation. The patient also had dysuria. The patient also had an episode of blood in the urine with some clot also. There is no history of any fever, rigor, or chills. PAST MEDICAL HISTORY: Asthma, diabetes mellitus, and GERD. Rest of the history and rest of the chart are also reviewed. HOME MEDICATIONS: Reviewed include Zofran. Doses and rest of the medications are noted. ALLERGIES: Bactrim. FAMILY HISTORY: Family history of diabetes mellitus, hypertension, and hyperlipidemia. SOCIAL HISTORY: Borderline personality. No history of smoking. REVIEW OF SYSTEMS: Fourteen-point review is negative except as mentioned earlier. PHYSICAL EXAMINATION: VITAL SIGNS: Pulse is 54, blood pressure 105/56, respirations 14. HEENT: Conjunctivae are normal. NECK: No jugular venous distention. CARDIOVASCULAR: S1 and S2 muffled. RESPIRATORY: Breath sounds diminished at the bases. No rhonchi. No crackles. ABDOMEN: Soft and nontender. LEGS: No edema. No swelling. NERVOUS SYSTEM: Higher functions as mentioned earlier. Cranial nerves 2 through 12 grossly intact. Moves all 4 limbs. No focal deficits. SKIN: No ulcers or rashes. JOINTS: No active deforming arthropathy. The patient used wheelchair for ambulation for pushing purpose. LABORATORY DATA: Noted. Possible UTI. ASSESSMENT: 1. Acute urinary tract infection, present on admission. 2. Depression. 3. Asthma. 4. Diabetes mellitus. 5. Hyperlipidemia. 6. An episode of vaginal bleeding. RECOMMENDATIONS AND DISCUSSION: In this 67-year-old woman presented with multiple complex medical issues, at this time, I recommend to continue with current medications. Recommend to continue the Macrobid to complete a course. Urine culture. If the culture is showing any organisms, I will be happy to review and adjust antibiotics accordingly. Otherwise, monitor blood sugars closely. Recommend an evaluation by the primary physician or CLOTH NAPPING SUPERVISOR for the episode of vaginal bleeding. Otherwise, discussed with the patient at length and discussed with staff. Further recommendations to follow. See orders for details. Avoid anticoagulation if the bleeding continues. Otherwise, current medications could be continued. MMODL / IJN: [id number] /
[2023-01-23] MEDS: ONDANSETRON 4 MG TAB PO PRN (06:04)
[2023-01-23] MEDS: LEVOTHYROXINE 75 MCG TAB PO SCH (06:06)
[2023-01-23 08:06] LABS: Glucose,Whole Blood 108 mg/dL (70-110)
[2023-01-23] MEDS: PANTOPRAZOLE 40 MG TABLET PO SCH (08:38)
[2023-01-23] MEDS: VENLAFAXINE HCL ER 75 MG CAP PO SCH (08:38)
[2023-01-23] MEDS: NYSTATIN 100,000 UNIT/GM POWD 15 GM TOPICAL SCH ×2 (08:38→22:30)
[2023-01-23] MEDS: NITROFURANTOIN MONOHYD/M-CRYST 100 MG CAP PO SCH ×2 (08:38→22:29)
[2023-01-23] MEDS: ASPIRIN 81 MG PO SCH (08:38)
[2023-01-23] MEDS: busPIRone HCl 10 MG TAB PO SCH ×3 (08:39→22:29)
[2023-01-23] MEDS: POTASSIUM CHLORIDE ER 10 MEQ TAB.ER.PRT PO SCH (08:39)
[2023-01-23] MEDS: metFORMIN 500 MG TAB PO SCH ×2 (08:39→22:29)
[2023-01-23] MEDS: LITHIUM CARBONATE 300 MG CAP PO SCH ×2 (08:39→22:29)
--- NOTE | 2023-01-23 10:09 | P.PN ---
Progress Note - Text Progress Note Date: 01/23/23 Interval History: Patient was seen at the bedside and agreeable to speak with typewriter assembly and parts inspector. Spoke with the patient at length about diagnosis, treatment, and medications. Patient claims that she has a bit of loose bowels caused by the antibiotics. Patient states she slept ok last night, aside from her racing thoughts. Continues to isolate in room. she continues to perseverate on anxiety, depression and worthlessness/negative thoughts. At this time patient denies any suicidal or homical ideations, intent or plan. Patient denies any auditory, visual hallucinations and denies any paranoia or delusions. Patient denies any side effects from the medications and has been compliant with meds. MENTAL STATUS EXAM: General Appearance: Patient appears to be obese, long, dark hair, glasses. Disheveled appearance. Malodorous. Stated age is alert, cooperative. Patient seated in wheelchair, dressed in a hospital gown. Patient is in no acute distress and has poor hygiene and grooming Behavior: Patient is calmly seated without any agitated behavior. less tearful at times. Speech: Patient's speech is fluent and nonpressured. Mood/Affect: Patient reports their mood is "depressed, anxious", affect is congruent Suicidality/Homicidality: Patient denies having any suicidal or homicidal ideation intent or plan. Perceptions: Patient denies any auditory or visual hallucinations. Though content/process: There is no evidence of any delusional thought content and thought process is chronically poor, focused on sx and medications. Memory and concentration: AOX3, grossly intact for the purposes of this session Judgment and insight: chronically poor IMPRESSIONS: Major depressive disorder without psychotic features Borderline personality disorder Somatoform disorder unspecified Suicidal ideations UTI PLAN: -Patient is admitted under voluntary status to MHU for stabilization of psychiatric symptoms and safety. Patient has signed adult voluntary form and medication consent and is placed in patient's chart. [place] level checked. -Medications : Buspar 20mg tid for anxiety, [place] 300mg bid for SI/mood adjunct increase trazadone 200mg qhs for mood/insomnia Effexor XR 225 mg daily foor anxiety/mood. [place] level 1.2 on 01/23 and will Recheck lithium level Friday am -Ativan and Haldol PRN for agitation/aggression -NRT -non smoker -SW on board for discharge planning. Encourage patient to participate in groups to work on coping skills.
[2023-01-23 17:44] LABS: Glucose,Whole Blood 85 mg/dL (70-110)
[2023-01-23] MEDS: traZODone HCL 50 MG TAB PO SCH (21:30)
[2023-01-23] MEDS: VALSARTAN 80 MG TAB PO SCH (22:29)
[2023-01-23] MEDS: ATORVASTATIN 80 MG TAB PO SCH (22:30)
[2023-01-24] MEDS: LEVOTHYROXINE 75 MCG TAB PO SCH (06:09)
[2023-01-24 08:21] LABS: Glucose,Whole Blood 98 mg/dL (70-110)
[2023-01-24] MEDS: NYSTATIN 100,000 UNIT/GM POWD 15 GM TOPICAL SCH ×2 (08:50→20:40)
[2023-01-24] MEDS: metFORMIN 500 MG TAB PO SCH ×2 (08:50→22:53)
[2023-01-24] MEDS: VENLAFAXINE HCL ER 75 MG CAP PO SCH (08:51)
[2023-01-24] MEDS: LITHIUM CARBONATE 300 MG CAP PO SCH ×2 (08:51→22:53)
[2023-01-24] MEDS: ASPIRIN 81 MG PO SCH (08:51)
[2023-01-24] MEDS: POTASSIUM CHLORIDE ER 10 MEQ TAB.ER.PRT PO SCH (08:51)
[2023-01-24] MEDS: busPIRone HCl 10 MG TAB PO SCH ×3 (08:51→22:54)
[2023-01-24] MEDS: NITROFURANTOIN MONOHYD/M-CRYST 100 MG CAP PO SCH ×2 (08:51→22:53)
[2023-01-24] MEDS: PANTOPRAZOLE 40 MG TABLET PO SCH (08:51)
[2023-01-24] MEDS: ALBUTEROL INHALER 60 PUFF/8 GM INHALER (MHU) INHALATION PRN (08:53)
--- NOTE | 2023-01-24 11:27 | P.PN ---
Progress Note - Text Progress Note Date: 01/24/23 Interval History: Patient was seen at the bedside and agreeable to speak with web content writer. Patient states she did not sleep well last night, due to nightmares and her racing thoughts. Patient is going to groups. she continues to perseverate on anxiety, depression and worthlessness/negative thoughts. Spoke with patient about increasing her Effexor, and she was agreeable. Patient encouraged to intake more water, due to lithium lever. Will recheck Friday. At this time patient denies any suicidal or homical ideations, intent or plan. Patient denies any auditory, visual hallucinations and denies any paranoia or delusions. Patient denies any side effects from the medications and has been compliant with meds. MENTAL STATUS EXAM: General Appearance: Patient appears to be obese, long, dark hair, glasses. Disheveled appearance. Malodorous. Stated age is alert, cooperative. Patient seated in wheelchair, dressed in a hospital gown. Patient is in no acute distress and has poor hygiene and grooming Behavior: Patient is calmly seated without any agitated behavior. Speech: Patient's speech is fluent and nonpressured. Mood/Affect: Patient reports their mood is "depressed", affect is congruent and sad Suicidality/Homicidality: Patient denies having any suicidal or homicidal ideation intent or plan. Perceptions: Patient denies any auditory or visual hallucinations. Though content/process: There is no evidence of any delusional thought content and thought process is chronically poor, catastrophizing. Memory and concentration: AOX3, grossly intact for the purposes of this session Judgment and insight: chronically poor IMPRESSIONS: Major depressive disorder without psychotic features Borderline personality disorder Somatoform disorder unspecified Suicidal ideations UTI PLAN: -Patient is admitted under voluntary status to MHU for stabilization of psychiatric symptoms and safety. Patient has signed adult voluntary form and medication consent and is placed in patient's chart. [place] level checked. -Medications : Buspar 20mg tid for anxiety, [place] 300mg bid for SI/mood adjunct, trazadone 200mg qhs for mood/insomnia. Increase Effexor XR 300 mg daily foor anxiety/mood. [place] level 1.2 on 01/23 and will Recheck lithium level Friday am -Ativan and Haldol PRN for agitation/aggression -NRT -non smoker -SW on board for discharge planning. Encourage patient to participate in groups to work on coping skills.
[2023-01-24] MEDS: Acetaminophen-Codeine 300-30mg TAB PO PRN (16:13)
[2023-01-24 17:47] LABS: Glucose,Whole Blood 96 mg/dL (70-110)
[2023-01-24] MEDS: ATORVASTATIN 80 MG TAB PO SCH (22:52)
[2023-01-24] MEDS: VALSARTAN 80 MG TAB PO SCH (22:53)
[2023-01-24] MEDS: traZODone HCL 50 MG TAB PO SCH (22:54)
[2023-01-25 07:58] LABS: Glucose,Whole Blood 92 mg/dL (70-110)
[2023-01-25] MEDS: ALBUTEROL INHALER 60 PUFF/8 GM INHALER (MHU) INHALATION PRN ×2 (08:49→13:45)
[2023-01-25] MEDS: PANTOPRAZOLE 40 MG TABLET PO SCH (08:54)
[2023-01-25] MEDS: metFORMIN 500 MG TAB PO SCH ×2 (08:54→22:34)
[2023-01-25] MEDS: LEVOTHYROXINE 75 MCG TAB PO SCH (08:54)
[2023-01-25] MEDS: VENLAFAXINE HCL ER 150 MG CAP PO SCH (08:54)
[2023-01-25] MEDS: LITHIUM CARBONATE 300 MG CAP PO SCH ×2 (08:54→22:34)
[2023-01-25] MEDS: ASPIRIN 81 MG PO SCH (08:54)
[2023-01-25] MEDS: busPIRone HCl 10 MG TAB PO SCH ×3 (08:54→22:34)
[2023-01-25] MEDS: NYSTATIN 100,000 UNIT/GM POWD 15 GM TOPICAL SCH ×2 (08:55→22:33)
[2023-01-25] MEDS: NITROFURANTOIN MONOHYD/M-CRYST 100 MG CAP PO SCH ×2 (09:05→22:34)
[2023-01-25] MEDS: POTASSIUM CHLORIDE ER 10 MEQ TAB.ER.PRT PO SCH (09:05)
--- NOTE | 2023-01-25 13:21 | P.PN ---
Progress Note - Text Progress Note Date: 01/25/23 Interval History: Patient was seen at the bedside and agreeable to speak with customs entry writer. Patient states she did not sleep well last night, due to nightmares and her racing thoughts. Patient is perseverative on the idea of having depression and anxiety being overwhelming. She reports having suicidal ideation with plan to overdose on pills. Patient is unable to respond to redirection towards positive aspects of her life and fixates on negative problems. However, she acknowledges that her sons are very supportive of her and provide her with comfort when she is feeling depressed. She is fixated on medications and appears to accept a high level of helplessness and hopelessness about her condition. Patient is also concrete. She relays difficulty with recalling her thoughts and displays neurovegetative symptoms of depression. She states that she is unable to complete simple word searches. At this time patient denies any homicidal ideation, intent or plan. Patient denies any auditory, visual hallucinations and denies any paranoia or delusions. Patient denies any side effects from the psychotropic medications and has been compliant with meds. She reports having diarrhea since starting nitrofurantoin for UTI. MENTAL STATUS EXAM: General Appearance: Patient appears to be obese, long, dark hair, glasses. Disheveled appearance. Stated age is alert, cooperative. Patient seated in bed. Patient is in no acute distress and has poor hygiene and grooming Behavior: Patient is calmly seated without any agitated behavior. Speech: Patient's speech is fluent and nonpressured. Mood/Affect: Patient reports their mood is "depressed", affect is congruent and sad Suicidality/Homicidality: Patient denies having any homicidal ideation intent or plan. Endorses SI with plan to OD on pills Perceptions: Patient denies any auditory or visual hallucinations. Though content/process: There is no evidence of any delusional thought content and thought process is chronically poor, catastrophizing. Memory and concentration: AOX3, grossly intact for the purposes of this session Judgment and insight: chronically poor IMPRESSIONS: Major depressive disorder without psychotic features Possible pseudodementia R/o unspecified personality disorder - difficult to discern from cultural ideologies and expressions PLAN: -Patient is admitted under voluntary status to MHU for stabilization of psychiatric symptoms and safety. Patient has signed adult voluntary form and medication consent and is placed in patient's chart. [place] level checked. -Medications : Buspar 20mg tid for anxiety, [place] 300mg bid for SI/mood adjunct, trazadone 200mg qhs for mood/insomnia. Effexor XR 300 mg daily foor anxiety/mood. [place] level 1.2 on 01/23 and will Recheck lithium level Friday am -Provided word search puzzles for patient to improve cognitive function and patient asked to name 3 things to live for. -Ativan and Haldol PRN for agitation/aggression -NRT -non smoker -SW on board for discharge planning. Encourage patient to participate in groups to work on coping skills.
[2023-01-25] MEDS: LOPERAMIDE 2 MG CAP PO PRN (14:26)
[2023-01-25 17:47] LABS: Glucose,Whole Blood 107 mg/dL (70-110)
[2023-01-25] MEDS: traZODone HCL 50 MG TAB PO SCH (22:33)
[2023-01-25] MEDS: VALSARTAN 80 MG TAB PO SCH (22:34)
[2023-01-25] MEDS: ATORVASTATIN 80 MG TAB PO SCH (22:34)
[2023-01-26] MEDS: LEVOTHYROXINE 75 MCG TAB PO SCH (05:49)
[2023-01-26 08:01] LABS: Glucose,Whole Blood 91 mg/dL (70-110)
[2023-01-26] MEDS: VENLAFAXINE HCL ER 150 MG CAP PO SCH (08:53)
[2023-01-26] MEDS: NYSTATIN 100,000 UNIT/GM POWD 15 GM TOPICAL SCH ×2 (08:53→23:03)
[2023-01-26] MEDS: POTASSIUM CHLORIDE ER 10 MEQ TAB.ER.PRT PO SCH (08:54)
[2023-01-26] MEDS: LITHIUM CARBONATE 300 MG CAP PO SCH (08:54)
[2023-01-26] MEDS: metFORMIN 500 MG TAB PO SCH ×2 (08:54→23:02)
[2023-01-26] MEDS: busPIRone HCl 10 MG TAB PO SCH ×3 (08:54→23:03)
[2023-01-26] MEDS: ASPIRIN 81 MG PO SCH (08:54)
[2023-01-26] MEDS: NITROFURANTOIN MONOHYD/M-CRYST 100 MG CAP PO SCH ×2 (08:54→23:03)
[2023-01-26] MEDS: PANTOPRAZOLE 40 MG TABLET PO SCH (08:54)
--- NOTE | 2023-01-26 13:27 | P.PN ---
Progress Note - Text Progress Note Date: 01/26/23 Interval History: Patient was seen at the bedside and agreeable to speak with financial underwriter. She was t earful and stating that she just wants "to crawl under a bridge and ". She endorses suicidal ideation and is unable to redirect her thoughts. She did not complete the puzzle given to her yesterday. She was able to know her children as the thing to live for but could not list any thing else. However with some prompting, she admitted that her belief in God and her sister support are things that she values. Patient repeatedly mentions that she has been feeling some unease when trying to sleep and feels that there may be a bad presence around her. She denies hearing the presence speaking with her but says that it causes her to be concerned. She reports trouble sleeping as a result. She endorses fair appetite today but reports lower energy. Diarrhea has improved significantly since being on Imodium and denies having any further concerns with this today. Patient endorses suicidal ideation with plan to OD on meds. Of note, Li level was 1.5 today and patient admits to not having consumed many fluids yesterday due to diarrhea. At this time patient denies any homicidal ideation, intent or plan. Patient denies any auditory, visual hallucinations and denies any paranoia or delusions. Patient denies any side effects from the psychotropic medications and has been compliant with meds. Vital Signs Temp 97.4 F L 01/26/23 06:57 Pulse 67 01/26/23 09:03 Resp 16 01/26/23 06:57 BP 119/54 01/26/23 09:03 Pulse Ox 96 01/25/23 08:58 FiO2 Intake & Output 01/25/23 01/26/23 01/26/23 18:59 06:59 18:59 Weight 125.3 kg MENTAL STATUS EXAM: General Appearance: Patient appears to be obese, long, dark hair, glasses. Disheveled appearance. Stated age is alert, cooperative. Patient seated in bed. Patient is in no acute distress and has poor hygiene and grooming Behavior: Patient is calmly seated without any agitated behavior. Speech: Patient's speech is fluent and nonpressured. Mood/Affect: Patient reports their mood is "really depressed", affect is congruent and tearful Suicidality/Homicidality: Patient denies having any homicidal ideation intent or plan. Endorses SI with plan to OD on pills Perceptions: Patient denies any auditory or visual hallucinations. Though content/process: concern about "bad presence" and thought process is chronically poor, catastrophizing. Memory and concentration: AOX3, grossly intact for the purposes of this session Judgment and insight: chronically poor IMPRESSIONS: Major depressive disorder without psychotic features Possible pseudodementia R/o unspecified personality disorder - difficult to discern from cultural ideologies and expressions PLAN: -Patient is admitted under voluntary status to MHU for stabilization of psychiatric symptoms and safety. Patient has signed adult voluntary form and medication consent and is placed in patient's chart. [place] level checked. -Medications : Buspar 20mg tid for anxiety Discontinue [place] given lack of efficacy at 300 mg BID for SI/mood and given risk of toxicity since pt also on Lasix. Li was 1.5 while on [place] 300mg BID. Will order CMP to assess for any potential [place] trazadone 200mg qhs for mood/insomnia. Might benefit from TCA Add Seroquel 50 mg for mood augmentation and sleep Effexor XR 300 mg daily foor anxiety/mood -Consult to spiritual care -Provided word search puzzles for patient to improve cognitive function and p atient asked to name 3 things to live for. -Ativan and Haldol PRN for agitation/aggression -NRT -non smoker -SW on board for discharge planning. Encourage patient to participate in groups to work on coping skills.
[2023-01-26 17:47] LABS: Glucose,Whole Blood 85 mg/dL (70-110)
[2023-01-26 21:50] LABS: ALT 18 U/L (4-34); AST 23 U/L (14-36); African American GFR (CKD) 62 (>60 ml/min/1.73 sqM); Albumin 3.9 g/dL (3.5-5.0); Alkaline Phosphatase 59 U/L (38-126); Anion Gap 12 mmol/L; Blood Urea Nitrogen 32 mg/dL (7-17); Calcium 9.5 mg/dL (8.4-10.2); Carbon Dioxide 20 mmol/L (22-30); Chloride 105 mmol/L (98-107); Glucose 124 mg/dL (74-99); Non-African American GFR(CKD) 54 (>60 ml/min/1.73 sqM); Potassium 4.8 mmol/L (3.5-5.1); Sodium 137 mmol/L (137-145); Total Bilirubin 0.4 mg/dL (0.2-1.3); Total Protein 6.5 g/dL (6.3-8.2)
[2023-01-26] MEDS: QUEtiapine 50 MG TAB PO SCH (23:03)
[2023-01-26] MEDS: VALSARTAN 80 MG TAB PO SCH (23:03)
[2023-01-26] MEDS: traZODone HCL 50 MG TAB PO SCH (23:03)
[2023-01-26] MEDS: ATORVASTATIN 80 MG TAB PO SCH (23:03)
[2023-01-27] MEDS: LEVOTHYROXINE 75 MCG TAB PO SCH (05:36)
[2023-01-27 08:03] LABS: Glucose,Whole Blood 80 mg/dL (70-110)
[2023-01-27] MEDS: VENLAFAXINE HCL ER 150 MG CAP PO SCH (08:52)
[2023-01-27] MEDS: POTASSIUM CHLORIDE ER 10 MEQ TAB.ER.PRT PO SCH (08:52)
[2023-01-27] MEDS: ASPIRIN 81 MG PO SCH (08:52)
[2023-01-27] MEDS: PANTOPRAZOLE 40 MG TABLET PO SCH (08:52)
[2023-01-27] MEDS: metFORMIN 500 MG TAB PO SCH ×2 (08:52→20:55)
[2023-01-27] MEDS: busPIRone HCl 10 MG TAB PO SCH ×3 (08:52→20:54)
[2023-01-27] MEDS: NYSTATIN 100,000 UNIT/GM POWD 15 GM TOPICAL SCH ×2 (08:52→20:55)
[2023-01-27] MEDS: NITROFURANTOIN MONOHYD/M-CRYST 100 MG CAP PO SCH (08:52)
--- NOTE | 2023-01-27 11:01 | P.PN ---
Progress Note - Text Progress Note Date: 01/27/23 Interval history: Patient was seen at the bedside and agreeable to speak with global technical writer. Patient st ates she did sleep "ok" last night. Patient claims that her mood/anxiety/depression are terrible, and she has intrusive thoughts of poor self worth/hopelessness/despair. Patient is going to some groups. she continues to perseverate on anxiety, depression and worthlessness/negative thoughts. Patient had her lithium d/c over the weekend as patient continues to have supratherapeutic levels. At this time patient denies any suicidal or homical ideations, intent or plan. Patient denies any auditory, visual hallucinations and denies any paranoia or delusions. Patient denies any side effects from the medications and has been compliant with meds. MENTAL STATUS EXAM: General Appearance: Patient appears to be obese, long, dark hair, glasses. Disheveled appearance. Malodorous. Stated age is alert, cooperative. Patient seated in wheelchair, dressed in a hospital gown. Patient is in no acute distress and has poor hygiene and grooming Behavior: Patient is calmly seated without any agitated behavior. Speech: Patient's speech is fluent and nonpressured. Mood/Affect: Patient reports their mood is "depressed", affect is congruent and sad Suicidality/Homicidality: Patient denies having any suicidal or homicidal ideation intent or plan Perceptions: Patient denies any auditory or visual hallucinations. Though content/process: There is no evidence of any delusional thought content and thought process is chronically poor, catastrophizing. Memory and concentration: AOX3, grossly intact for the purposes of this session Judgment and insight: chronically poor IMPRESSIONS: Major depressive disorder without psychotic features Borderline personality disorder Somatoform disorder unspecified Suicidal ideations UTI PLAN: -Patient is admitted under voluntary status to MHU for stabilization of psychiatric symptoms and safety. Patient has signed adult voluntary form and medication consent and is placed in patient's chart. -Medications : Buspar 20mg tid for anxiety trazadone 200mg qhs for mood/insomnia. Seroquel 50 mg for mood augmentation and sleep Effexor XR 300 mg daily foor anxiety/mood. [place] level 1.5 on 01/26, this is discontinued to due to risk of toxicity. -Ativan and Haldol PRN for agitation/aggression -NRT -non smoker -SW on board for discharge planning. Encourage patient to participate in groups to work on coping skills. will recommend ECT or TMS once patient is discharged as an adjunct for her treatment.
[2023-01-27 17:56] LABS: Glucose,Whole Blood 112 mg/dL (70-110)
[2023-01-27] MEDS ORDERED: BENZOCAINE/MENTHOL LOZENG 1 EACH LOZENGE MUCOUS MEM PRN (18:48)
[2023-01-27] MEDS: LOPERAMIDE 2 MG CAP PO PRN (20:39)
[2023-01-27] MEDS: QUEtiapine 50 MG TAB PO SCH (20:55)
[2023-01-27] MEDS: ATORVASTATIN 80 MG TAB PO SCH (20:55)
[2023-01-27] MEDS: VALSARTAN 80 MG TAB PO SCH (20:55)
[2023-01-27] MEDS: traZODone HCL 50 MG TAB PO SCH (20:55)
[2023-01-28] MEDS: LEVOTHYROXINE 75 MCG TAB PO SCH (06:33)
[2023-01-28 07:52] LABS: Glucose,Whole Blood 95 mg/dL (70-110)
[2023-01-28] MEDS: metFORMIN 500 MG TAB PO SCH ×2 (08:53→22:31)
[2023-01-28] MEDS: PANTOPRAZOLE 40 MG TABLET PO SCH (08:53)
[2023-01-28] MEDS: busPIRone HCl 10 MG TAB PO SCH ×3 (08:53→22:31)
[2023-01-28] MEDS: ASPIRIN 81 MG PO SCH (08:53)
[2023-01-28] MEDS: POTASSIUM CHLORIDE ER 10 MEQ TAB.ER.PRT PO SCH (08:54)
[2023-01-28] MEDS: VENLAFAXINE HCL ER 150 MG CAP PO SCH (08:54)
[2023-01-28] MEDS: NYSTATIN 100,000 UNIT/GM POWD 15 GM TOPICAL SCH ×2 (08:54→22:32)
[2023-01-28] MEDS: CHOLESTYRAMINE (WITH SUGAR) 4 GM PACKET PO SCH ×2 (08:55→17:48)
--- NOTE | 2023-01-28 11:07 | P.PN ---
Progress Note - Text Progress Note Date: 01/28/23 Interval history: Patient was seen at the bedside and agreeable to speak with feature writer. she contin ues to state that she is feeling anxious and depressred today. States that she keeps trying to think of ways to 'end her life".Patient continues to have intrusive thoughts of poor self worth/hopelessness/despair, she is also somatically preoccupied. she states that she is having mild tremors at this time. Patient is going to some groups. she continues to perseverate on anxiety, depression and worthlessness/negative thoughts. Spoke with patient about coping skills, and she verbalized understanding. At this time patient denies any homical ideations, intent or plan. she is endorsing SI, no plan today. Patient denies any auditory, visual hallucinations and denies any paranoia or delusions. Patient denies any side effects from the medications and has been compliant with meds. MENTAL STATUS EXAM: General Appearance: Patient appears to be obese, long, dark hair, glasses. Disheveled appearance. Stated age is alert, cooperative. Patient seated in wheelchair, dressed in a hospital gown. Patient is in no acute distress and has poor hygiene and grooming Behavior: Patient is calmly seated without any agitated behavior. Speech: Patient's speech is fluent and nonpressured. Mood/Affect: Patient reports their mood is "depressed", affect is congruent and sad Suicidality/Homicidality: Patient admitts to suicidal ideations, no plan. denies any homicidal ideation intent or plan Perceptions: Patient denies any auditory or visual hallucinations. Though content/process: There is no evidence of any delusional thought content and thought process is chronically poor, catastrophizing. somatically preoccupied. Memory and concentration: AOX3, grossly intact for the purposes of this session Judgment and insight: chronically poor IMPRESSIONS: Major depressive disorder without psychotic features Borderline personality disorder Somatoform disorder unspecified Suicidal ideations UTI PLAN: -Patient is admitted under voluntary status to MHU for stabilization of psychiatric symptoms and safety. Patient has signed adult voluntary form and medication consent and is placed in patient's chart. -Medications : Buspar 20mg tid for anxiety trazadone 200mg qhs for mood/insomnia. increase Seroquel 75 mg for mood augmentation and sleep Effexor XR 300 mg daily foor anxiety/mood. -Ativan and Haldol PRN for agitation/aggression -NRT -non smoker -SW on board for discharge planning. Encourage patient to participate in groups to work on coping skills. will recommend ECT or TMS once patient is discharged as an adjunct for her treatment.
[2023-01-28] MEDS: Acetaminophen-Codeine 300-30mg TAB PO PRN ×2 (11:10→17:00)
[2023-01-28] MEDS ORDERED: QUEtiapine 25 MG TAB PO SCH (21:00)
[2023-01-28] MEDS: traZODone HCL 50 MG TAB PO SCH (22:31)
[2023-01-28] MEDS: VALSARTAN 80 MG TAB PO SCH (22:31)
[2023-01-28] MEDS: ATORVASTATIN 80 MG TAB PO SCH (22:31)
[2023-01-29] MEDS: LEVOTHYROXINE 75 MCG TAB PO SCH (06:39)
[2023-01-29] MEDS: VENLAFAXINE HCL ER 150 MG CAP PO SCH (08:49)
[2023-01-29] MEDS: PANTOPRAZOLE 40 MG TABLET PO SCH (08:49)
[2023-01-29] MEDS: metFORMIN 500 MG TAB PO SCH ×2 (08:49→22:31)
[2023-01-29] MEDS: busPIRone HCl 10 MG TAB PO SCH ×3 (08:49→22:31)
[2023-01-29] MEDS: ASPIRIN 81 MG PO SCH (08:49)
[2023-01-29] MEDS: POTASSIUM CHLORIDE ER 10 MEQ TAB.ER.PRT PO SCH (08:50)
[2023-01-29] MEDS: NYSTATIN 100,000 UNIT/GM POWD 15 GM TOPICAL SCH ×2 (08:51→22:30)
[2023-01-29] MEDS: CHOLESTYRAMINE (WITH SUGAR) 4 GM PACKET PO SCH ×2 (10:25→17:56)
--- NOTE | 2023-01-29 11:31 | P.PN ---
Progress Note - Text Progress Note Date: 01/29/23 Interval history: Patient was seen at the bedside and agreeable to speak with principal technical writer. she contin ues to state that she is feeling anxious and depressed today once again. Patient is very quiet with her tone of voice, and states her legs are 'jittery' during the night, when she's trying to sleep. Will start patient on Requip, and she is agreeable to take it. Patient claims that she 'seen a black hole in the wall last night, and someone was trying to pull her into it." Patient stated that at breakfast, she had thoughts of taking the plastic knife to cut her wrist. Will talk to nursing staff to monitor her utensils at meals. Patient continues to have intrusive thoughts of poor self worth/hopelessness/despair, she is also somatically preoccupied. Patient is going to some groups. she continues to perseverate on anxiety, depression and worthlessness/negative thoughts. Spoke with patient about coping skills, and she verbalized understanding. At this time patient denies any homical ideations, intent or plan. she is endorsing SI, no plan today. Patient denies any auditory, visual hallucinations and denies any paranoia or delusions. Patient denies any side effects from the medications and has been compliant with meds. MENTAL STATUS EXAM: General Appearance: Patient appears to be obese, long, dark hair, glasses. Disheveled appearance. Stated age is alert, cooperative. Patient seated in wheelchair, dressed in a hospital gown. Patient is in no acute distress and has poor hygiene and grooming Behavior: Patient is calmly seated without any agitated behavior. Speech: Patient's speech is fluent and nonpressured. Mood/Affect: Patient reports their mood is "depressed", affect is congruent and sad Suicidality/Homicidality: Patient admitts to suicidal ideations, no plan. denies any homicidal ideation intent or plan Perceptions: Patient denies any auditory or visual hallucinations. Though content/process: There is no evidence of any delusional thought content and thought process is chronically poor, catastrophizing. somatically preoccupied. Memory and concentration: AOX3, grossly intact for the purposes of this session Judgment and insight: chronically poor IMPRESSIONS: Major depressive disorder without psychotic features Borderline personality disorder Somatoform disorder unspecified Suicidal ideations UTI PLAN: -Patient is admitted under voluntary status to [facility] for stabilization of psychiatric symptoms and safety. Patient has signed adult voluntary form and m edication consent and is placed in patient's chart. -Medications : Buspar 20mg tid for anxiety decrease trazadone 100mg qhs for mood/insomnia. increase Seroquel 100 mg for mood augmentation and sleep Effexor XR 300 mg daily foor anxiety/mood. added Requip .25 bid for RLS -Ativan and Haldol PRN for agitation/aggression -NRT -non smoker -SW on board for discharge planning. Encourage patient to participate in groups to work on coping skills. will recommend ECT or TMS once patient is discharged as an adjunct for her treatment. will also speak to staff about monitoring patients utensils for food and if patient attempts to harm self with them or hide the untensil then will switch to finger foods diets
[2023-01-29] MEDS: traZODone HCL 100 MG TAB PO SCH (22:30)
[2023-01-29] MEDS: ATORVASTATIN 80 MG TAB PO SCH (22:31)
[2023-01-29] MEDS: QUEtiapine 100 MG TAB PO SCH (22:31)
[2023-01-29] MEDS: VALSARTAN 80 MG TAB PO SCH (22:31)
[2023-01-30] MEDS: LEVOTHYROXINE 75 MCG TAB PO SCH (05:52)
[2023-01-30] MEDS: busPIRone HCl 10 MG TAB PO SCH ×3 (08:36→23:10)
[2023-01-30] MEDS: metFORMIN 500 MG TAB PO SCH ×2 (08:36→23:09)
[2023-01-30] MEDS: ASPIRIN 81 MG PO SCH (08:36)
[2023-01-30] MEDS: VENLAFAXINE HCL ER 150 MG CAP PO SCH (08:36)
[2023-01-30] MEDS: NYSTATIN 100,000 UNIT/GM POWD 15 GM TOPICAL SCH ×2 (08:37→23:09)
[2023-01-30] MEDS: CHOLESTYRAMINE (WITH SUGAR) 4 GM PACKET PO SCH ×2 (08:37→17:49)
[2023-01-30] MEDS: PANTOPRAZOLE 40 MG TABLET PO SCH (08:37)
[2023-01-30] MEDS: POTASSIUM CHLORIDE ER 10 MEQ TAB.ER.PRT PO SCH (08:37)
--- NOTE | 2023-01-30 12:06 | P.PN ---
Progress Note - Text Progress Note Date: 01/30/23 Interval history: Patient was seen in group, and agreeable to speak with machine sign writer. she continues to state that she is feeling anxious and depressed today once again. She had a visit with her son last night that went pretty well, however, learned that her cousin from COPD. Patient is very quiet with her tone of voice. Patient states she slept better last night, and that the Requip helped with her restless legs. Patient continues to have intrusive thoughts of poor self worth/hopelessness/despair, she is also somatically preoccupied. Patient is going to groups. she continues to perseverate on anxiety, depression and worthlessness/negative thoughts. Patient verbalized she is still having feelings of self harm. Spoke with patient about coping skills, and she verbalized understanding. Also spoke to the patient at length about how she could benefit from TMS or ECT after she is discharged. At this time patient denies any homical ideations, intent or plan. she is endorsing SI today, no intent or plan. Patient denies any auditory, visual hallucinations and denies any paranoia or delusions. Patient denies any side effects from the medications and has been compliant with meds. MENTAL STATUS EXAM: General Appearance: Patient appears to be obese, long, dark hair, glasses. Di sheveled appearance. Stated age is alert, cooperative. Patient seated in wheelchair, dressed in a hospital gown. Patient is in no acute distress and has poor hygiene and grooming Behavior: Patient is calmly seated without any agitated behavior. Speech: Patient's speech is fluent and nonpressured. soft tone Mood/Affect: Patient reports their mood is "depressed", affect is congruent and sad mildly improving Suicidality/Homicidality: Patient admits to suicidal ideations, no plan. denies any homicidal ideation intent or plan Perceptions: Patient denies any auditory or visual hallucinations. Though content/process: There is no evidence of any delusional thought content and thought process is chronically poor, catastrophizing. somatically preoccupied, improving mildly Memory and concentration: AOX3, grossly intact for the purposes of this session Judgment and insight: chronically poor, improving mildly IMPRESSIONS: Major depressive disorder without psychotic features Borderline personality disorder Somatoform disorder unspecified Suicidal ideations UTI PLAN: -Patient is admitted under voluntary status to MHU for stabilization of psychiatric symptoms and safety. Patient has signed adult voluntary form and medication consent and is placed in patient's chart. -Medications : Buspar 20mg tid for anxiety, trazadone 100mg qhs for mood/insomnia. Seroquel 100 mg for mood augmentation and sleep, Effexor XR 300 mg daily foor anxiety/mood. Requip 0.25 bid for RLS -Ativan and Haldol PRN for agitation/aggression -NRT -non smoker -SW on board for discharge planning. Encourage patient to participate in groups to work on coping skills. will recommend ECT or TMS once patient is discharged as an adjunct for her treatment. will also speak to staff about monitoring patients utensils for food and if patient attempts to harm self with them or hide the untensil then will switch to finger foods diets. Possible discharge baxk home friday with increased [facility] services.
[2023-01-30] MEDS: ATORVASTATIN 80 MG TAB PO SCH (23:09)
[2023-01-30] MEDS: traZODone HCL 100 MG TAB PO SCH (23:10)
[2023-01-30] MEDS: QUEtiapine 100 MG TAB PO SCH (23:10)
[2023-01-30] MEDS: VALSARTAN 80 MG TAB PO SCH (23:10)
[2023-01-31] MEDS: LEVOTHYROXINE 75 MCG TAB PO SCH (06:12)
[2023-01-31] MEDS: metFORMIN 500 MG TAB PO SCH ×2 (09:02→22:11)
[2023-01-31] MEDS: ASPIRIN 81 MG PO SCH (09:02)
[2023-01-31] MEDS: PANTOPRAZOLE 40 MG TABLET PO SCH (09:02)
[2023-01-31] MEDS: busPIRone HCl 10 MG TAB PO SCH ×3 (09:02→22:12)
[2023-01-31] MEDS: NYSTATIN 100,000 UNIT/GM POWD 15 GM TOPICAL SCH ×2 (09:03→22:19)
[2023-01-31] MEDS: VENLAFAXINE HCL ER 150 MG CAP PO SCH (09:03)
[2023-01-31] MEDS: POTASSIUM CHLORIDE ER 10 MEQ TAB.ER.PRT PO SCH (09:03)
[2023-01-31] MEDS: CHOLESTYRAMINE (WITH SUGAR) 4 GM PACKET PO SCH ×2 (09:04→16:20)
--- NOTE | 2023-01-31 12:44 | P.PN ---
Progress Note - Text Progress Note Date: 01/31/23 Interval history: Patient was seen in at bedside, and agreeable to speak with advertising writer. Patient st ates that is doing a little better today. Patient appears brighter than she has in past days. Patient is very quiet with her tone of voice. Patient states she slept better last night however continues to state that she is seeing things at night and having anxiety. Patient continues to be focused on self worthlessness/despair. she is also somatically preoccupied. Patient is going to groups. she continues to perseverate on anxiety, depression and negative thoughts. Patient verbalized she is still having feelings of self harm, but is able to not react on these thoughts. Spoke with patient about discharge Friday, and told her that I would recommend ECT or TMS treatment, and [facility] would have more frequent visits to her, and would help to set up additional treatment. Patient verbalized understanding. At this time patient denies any homical ideations, intent or plan. she denies SI/HI today,with no intent or plan. Patient denies any auditory, visual hallucinations and denies any paranoia or d elusions. Patient denies any side effects from the medications and has been compliant with meds. MENTAL STATUS EXAM: General Appearance: Patient appears to be morbidly obese, long, dark hair, glass es. Disheveled appearance. Stated age is alert, cooperative. Patient seated in wheelchair, dressed in a hospital gown. Patient is in no acute distress and has poor hygiene and grooming Behavior: Patient is calmly seated without any agitated behavior. Speech: Patient's speech is fluent and nonpressured. soft tone mildly improving Mood/Affect: Patient reports their mood is "depressed", affect is congruent and sad mildly improving Suicidality/Homicidality: Patient admits to suicidal ideations, no plan. denies any homicidal ideation intent or plan Perceptions: Patient denies any auditory or visual hallucinations. Though content/process: There is no evidence of any delusional thought content and thought process is chronically poor, catastrophizing. somatically preoccupied, improving mildly Memory and concentration: AOX3, grossly intact for the purposes of this session Judgment and insight: chronically poor, improving mildly IMPRESSIONS: Major depressive disorder without psychotic features Borderline personality disorder Somatoform disorder unspecified Suicidal ideations UTI PLAN: -Patient is admitted under voluntary status to MHU for stabilization of psychiatric symptoms and safety. Patient has signed adult voluntary form and medication consent and is placed in patient's chart. -Medications : Buspar 20mg tid for anxiety, trazadone 100mg qhs for mood/insomnia. Seroquel 100 mg for mood augmentation and sleep, Effexor XR 300 mg daily foor anxiety/mood. Requip 0.25 bid for RLS add Melatonin 5mg qhs for sleep -Ativan and Haldol PRN for agitation/aggression -NRT -non smoker -SW on board for discharge planning. Encourage patient to participate in groups to work on coping skills. will recommend ECT or TMS once patient is discharged as an adjunct for her treatment. will also speak to staff about monitoring patients utensils for food and if patient attempts to harm self with them or hide the utensil, then will switch to finger foods diets. Possible discharge back home Friday with increased [facility] services.
[2023-01-31] MEDS: ATORVASTATIN 80 MG TAB PO SCH (22:11)
[2023-01-31] MEDS: MELATONIN 5 MG TABLET PO SCH (22:11)
[2023-01-31] MEDS: QUEtiapine 100 MG TAB PO SCH (22:12)
[2023-01-31] MEDS: traZODone HCL 100 MG TAB PO SCH (22:12)
[2023-01-31] MEDS: VALSARTAN 80 MG TAB PO SCH (22:12)
[2023-01-31] MEDS: ALBUTEROL INHALER 60 PUFF/8 GM INHALER (MHU) INHALATION PRN (22:19)
[2023-02-01] MEDS: LEVOTHYROXINE 75 MCG TAB PO SCH (06:38)
[2023-02-01] MEDS: metFORMIN 500 MG TAB PO SCH ×2 (09:08→22:35)
[2023-02-01] MEDS: ASPIRIN 81 MG PO SCH (09:08)
[2023-02-01] MEDS: busPIRone HCl 10 MG TAB PO SCH ×3 (09:08→22:35)
[2023-02-01] MEDS: PANTOPRAZOLE 40 MG TABLET PO SCH (09:08)
[2023-02-01] MEDS: VENLAFAXINE HCL ER 150 MG CAP PO SCH (09:09)
[2023-02-01] MEDS: CHOLESTYRAMINE (WITH SUGAR) 4 GM PACKET PO SCH ×2 (09:09→17:35)
[2023-02-01] MEDS: NYSTATIN 100,000 UNIT/GM POWD 15 GM TOPICAL SCH ×2 (09:09→22:34)
[2023-02-01] MEDS: POTASSIUM CHLORIDE ER 10 MEQ TAB.ER.PRT PO SCH (09:09)
--- NOTE | 2023-02-01 14:59 | P.PN ---
Progress Note - Text Progress Note Date: 02/01/23 Interval history: The patient was seen today as coverage for Dr. Cancino. Their chart was reviewed, and the case was discussed with the nursing staff. The patient reports poor sleep. The patient reports fair appetite. The patient has been participating in groups and other unit activities. The patient has been taking their psychiatric medications and denies side effects. The patient reports still having high anxiety and depression. She continues to have thoughts of suicide but no intent or plan of suicide today. The patient reports occasionally hearing voices "as a demon voice" and sometimes feels been touched by fingers not there. The patient sees her brother who few months ago standing at the corner. The patient was seen sitting in day area without interacting with others. The patient continues to talk about how miserable is her life and she has been consistently thinking about suicide. The patient reports bouts of severe anger at herself and always feeling irritable and easily agitated. The patient doesn't feel any help from Melatonin for insomnia. Mental Status Examination: Appearance: Appears stated age, fairly groomed, morbid obesity, and no specific features. Gait/ posture: unable to walk and using wheelchair Attitude and Behavior: not fully cooperative, intermittent eye contact during course of interview. Motor Activity: slow psychomotor activity. Speech: slow rate, None pressured. Mood: " depressed, anxious Affect: Restricted Thought form: not incoherent and no clang association. Thought content: Logical, non-delusional, reports suicidal, denies homicidal thoughts, intentions, or plans. Perception: Reports auditory and visual hallucinations. Attention: No impairment. Orientation: Oriented to time, place, person, and situation. Insight & Judgment: impaired Impulse control: impaired IMPRESSIONS: Major depressive disorder with psychotic features Borderline personality disorder Somatoform disorder unspecified Suicidal ideations UTI Treatment plan: Continue inpatient psychiatric hospitalization. Patient has signed adult voluntary form and medication consent and is placed in patient's chart. Implement the following precautions as recommended by the admitting psychiatrist: suicide and elopement Consult the medical team immediately if any medical concerns arise. Educate the patient on the benefits of participating in groups and other unit activities and encourage active participation. Lab work ordered: none today Medications: Continue Buspar 20mg tid for anxiety Continue Trazadone 100mg qhs for mood/insomnia. Increase Seroquel 200 mg for mood augmentation, psychosis, and sleep, Continue Effexor XR 300 mg daily foor anxiety/mood. Continue Requip 0.25 bid for RLS Continue Melatonin 5mg qhs for sleep -Ativan and Haldol PRN for agitation/aggression -NRT -non smoker Discharge planning is currently in progress. The staff to continue monitoring patients utensils for food and if patient attempts to harm self with them or hide the utensil, then will switch to finger foods diets.
[2023-02-01] MEDS: Acetaminophen-Codeine 300-30mg TAB PO PRN (19:56)
[2023-02-01] MEDS: QUEtiapine 100 MG TAB PO SCH (22:36)
[2023-02-01] MEDS: MELATONIN 5 MG TABLET PO SCH (22:36)
[2023-02-01] MEDS: ATORVASTATIN 80 MG TAB PO SCH (22:36)
[2023-02-01] MEDS: traZODone HCL 100 MG TAB PO SCH (22:36)
[2023-02-01] MEDS: VALSARTAN 80 MG TAB PO SCH (22:37)
[2023-02-02] MEDS: LEVOTHYROXINE 75 MCG TAB PO SCH (05:36)
[2023-02-02] MEDS: POTASSIUM CHLORIDE ER 10 MEQ TAB.ER.PRT PO SCH (09:18)
[2023-02-02] MEDS: CHOLESTYRAMINE (WITH SUGAR) 4 GM PACKET PO SCH ×2 (09:18→17:07)
[2023-02-02] MEDS: PANTOPRAZOLE 40 MG TABLET PO SCH (09:18)
[2023-02-02] MEDS: busPIRone HCl 10 MG TAB PO SCH ×3 (09:18→22:42)
[2023-02-02] MEDS: NYSTATIN 100,000 UNIT/GM POWD 15 GM TOPICAL SCH ×2 (09:18→22:42)
[2023-02-02] MEDS: VENLAFAXINE HCL ER 150 MG CAP PO SCH (09:18)
[2023-02-02] MEDS: metFORMIN 500 MG TAB PO SCH ×2 (09:18→22:41)
[2023-02-02] MEDS: ASPIRIN 81 MG PO SCH (09:18)
[2023-02-02] MEDS: ALBUTEROL INHALER 60 PUFF/8 GM INHALER (MHU) INHALATION PRN (10:32)
--- NOTE | 2023-02-02 15:16 | P.PN ---
Progress Note - Text Progress Note Date: 02/02/23 Interval history: The patient was seen today as coverage for Dr. Cancino. Their chart was reviewed, and the case was discussed with the nursing staff. The patient reports is still having trouble sleeping and she didn't feel much help from Seroquel was sleeping. She reports is still feeling agitated, jittery, and indicated depression symptoms with lack of motivation and intermittent suicidal ideation. Today the patient denies any hallucinations which she reported yesterday. She was preoccupied with somatic symptoms as headache and heart palpitation. The patient reports fair appetite. The patient has been taking her psychotropic medications and no reports of side effects. Mental Status Examination: Appearance: Appears stated age, fairly groomed, morbid obesity, and no specific features. Gait/ posture: unable to walk and using wheelchair Attitude and Behavior: not fully cooperative, intermittent eye contact during course of interview. Motor Activity: slow psychomotor activity. Speech: slow rate, None pressured. Mood: " depressed, anxious Affect: Restricted Thought form: not incoherent and no clang association. Thought content: Logical, non-delusional, reports suicidal, denies homicidal thoughts, intentions, or plans. Perception: Denies auditory and visual hallucinations Attention: No impairment. Orientation: Oriented to time, place, person, and situation. Insight & Judgment: impaired Impulse control: impaired IMPRESSIONS: Major depressive disorder with psychotic features Borderline personality disorder Somatoform disorder unspecified Suicidal ideations UTI Treatment plan: Continue inpatient psychiatric hospitalization. Patient has signed adult voluntary form and medication consent and is placed in patient's chart. Implement the following precautions as recommended by the admitting psychiatrist: suicide and elopement Consult the medical team immediately if any medical concerns arise. Educate the patient on the benefits of participating in groups and other unit activities and encourage active participation. Lab work ordered: none today Medications: Continue Buspar 20mg tid for anxiety Continue Trazadone 100mg qhs for mood/insomnia. Continue Seroquel 200 mg for mood augmentation, psychosis, and sleep, Continue Effexor XR 300 mg daily foor anxiety/mood. Continue Requip 0.25 bid for RLS Continue Melatonin 5mg qhs for sleep -Ativan and Haldol PRN for agitation/aggression -NRT -non smoker Discharge planning is currently in progress. The staff to continue monitoring patients utensils for food and if patient attempts to harm self with them or hide the utensil, then will switch to finger foods diets.
[2023-02-02] MEDS: MELATONIN 5 MG TABLET PO SCH (22:41)
[2023-02-02] MEDS: traZODone HCL 100 MG TAB PO SCH (22:41)
[2023-02-02] MEDS: QUEtiapine 100 MG TAB PO SCH (22:41)
[2023-02-02] MEDS: ATORVASTATIN 80 MG TAB PO SCH (22:42)
[2023-02-02] MEDS: VALSARTAN 80 MG TAB PO SCH (22:42)
[2023-02-03] MEDS: LEVOTHYROXINE 75 MCG TAB PO SCH (06:28)
[2023-02-03] MEDS: PANTOPRAZOLE 40 MG TABLET PO SCH (08:12)
[2023-02-03] MEDS: busPIRone HCl 10 MG TAB PO SCH ×3 (08:12→22:01)
[2023-02-03] MEDS: POTASSIUM CHLORIDE ER 10 MEQ TAB.ER.PRT PO SCH (08:12)
[2023-02-03] MEDS: ASPIRIN 81 MG PO SCH (08:12)
[2023-02-03] MEDS: VENLAFAXINE HCL ER 150 MG CAP PO SCH (08:12)
[2023-02-03] MEDS: NYSTATIN 100,000 UNIT/GM POWD 15 GM TOPICAL SCH ×2 (08:13→22:02)
[2023-02-03] MEDS: ONDANSETRON 4 MG TAB PO PRN (08:14)
[2023-02-03 08:32] LABS: Glucose,Whole Blood 80 mg/dL (70-110)
[2023-02-03 08:32] LABS: Glucose,Whole Blood 81 mg/dL (70-110)
[2023-02-03 08:35] VITALS: PULSE 60; RESP 16
[2023-02-03] MEDS: metFORMIN 500 MG TAB PO SCH ×2 (09:24→22:01)
[2023-02-03] MEDS: CHOLESTYRAMINE (WITH SUGAR) 4 GM PACKET PO SCH ×2 (09:24→17:39)
[2023-02-03] MEDS ORDERED: cefTRIAXone 1,000 MG VIAL (IM USE) IM STA (10:10)
--- NOTE | 2023-02-03 11:39 | P.PN ---
Progress Note - Text Progress Note Date: 02/03/23 Interval history: Patient was seen in at bedside, and agreeable to speak with writer editor. Patient st ates that is doing ok, complaining of headache and UTI symptoms. Patient is very quiet with her tone of voice. Patient states she slept better last night however continues to state that she is not sleeping the whole night through, and wakes often. Patient continues to be focused on self worthlessness/despair. she is also somatically preoccupied. Patient is going to groups. she continues to perseverate on anxiety, depression and negative thoughts. Will give patient IM of Rocephin, to help with UTI symptoms, order UA, patient agreeable. At this time patient denies any homical ideations, intent or plan. she denies SI/HI today,with no intent or plan. Patient denies any auditory, visual hallucinations and denies any paranoia or delusions. Patient denies any side effects from the medications and has been compliant with meds. MENTAL STATUS EXAM: General Appearance: Patient appears to be morbidly obese, long, dark hair, glasses. Disheveled appearance. Stated age is alert, cooperative. Patient seated in wheelchair, dressed in a hospital gown. Patient is in no acute distress and has poor hygiene and grooming Behavior: Patient is calmly seated without any agitated behavior. Speech: Patient's speech is fluent and nonpressured. soft tone mildly improving Mood/Affect: Patient reports their mood is "still depressed", affect is congruent and sad mildly improving Suicidality/Homicidality: Patient admits to suicidal ideations, no plan. denies any homicidal ideation intent or plan Perceptions: Patient denies any auditory or visual hallucinations. Though content/process: There is no evidence of any delusional thought content and thought process is chronically poor, catastrophizing. somatically preoccupied, improving mildly Memory and concentration: AOX3, grossly intact for the purposes of this session Judgment and insight: chronically poor, improving mildly IMPRESSIONS: Major depressive disorder without psychotic features Borderline personality disorder Somatoform disorder unspecified Suicidal ideations UTI PLAN: -Patient is admitted under voluntary status to [facility] for stabilization of psychiatric symptoms and safety. Patient has signed adult voluntary form and medication consent and is placed in patient's chart. -Medications : Buspar 20mg tid for anxiety, trazadone 100mg qhs for mood/insomnia. Seroquel 200 mg for mood augmentation and sleep, Effexor XR 300 mg daily foor anxiety/mood. Requip 0.25 bid for RLS, Melatonin 5mg qhs for sleep add Rocephin IMx1 for UTI and attempt to collect UA today -Ativan and Haldol PRN for agitation/aggression -NRT -non smoker -SW on board for discharge planning. Encourage patient to participate in groups to work on coping skills. will strongly recommend ECT or TMS once patient is discharged as an adjunct for her treatment. Possible discharge back home Friday-friday with increased H services if patient improves
[2023-02-03 16:24] LABS: Appearance,Urine Clear (Clear); Bilirubin,Urine Negative (Negative); Blood,Urine Negative (Negative); Color,Urine Yellow; Glucose,Urine (UA) Negative (Negative); Ketones,Urine Negative (Negative); Leukocyte Esterase,Urine Negative (Negative); Nitrite,Urine Negative (Negative); Protein,Urine Negative (Negative); Urobilinogen,Urine <2.0 mg/dL (<2.0)
[2023-02-03] MEDS: MELATONIN 5 MG TABLET PO SCH (22:01)
[2023-02-03] MEDS: QUEtiapine 100 MG TAB PO SCH (22:01)
[2023-02-03] MEDS: ATORVASTATIN 80 MG TAB PO SCH (22:01)
[2023-02-03] MEDS: traZODone HCL 100 MG TAB PO SCH (22:02)
[2023-02-03] MEDS: VALSARTAN 80 MG TAB PO SCH (22:02)
[2023-02-04] MEDS: LEVOTHYROXINE 75 MCG TAB PO SCH (06:44)
[2023-02-04] MEDS: POTASSIUM CHLORIDE ER 10 MEQ TAB.ER.PRT PO SCH (08:28)
[2023-02-04] MEDS: busPIRone HCl 10 MG TAB PO SCH ×3 (08:28→20:39)
[2023-02-04] MEDS: ASPIRIN 81 MG PO SCH (08:28)
[2023-02-04] MEDS: PANTOPRAZOLE 40 MG TABLET PO SCH (08:28)
[2023-02-04] MEDS: VENLAFAXINE HCL ER 150 MG CAP PO SCH (08:28)
[2023-02-04] MEDS: CHOLESTYRAMINE (WITH SUGAR) 4 GM PACKET PO SCH ×2 (08:29→17:32)
[2023-02-04] MEDS: NYSTATIN 100,000 UNIT/GM POWD 15 GM TOPICAL SCH ×2 (08:29→20:39)
[2023-02-04] MEDS: metFORMIN 500 MG TAB PO SCH ×2 (08:29→20:38)
[2023-02-04 08:34] VITALS: BP 110/58; TEMP 97.2
--- NOTE | 2023-02-04 10:00 | P.DS ---
Providers Date of admission: 01/21/23 21:03 Expected date of discharge: 02/04/23 Attending physician: Marc Cancino MD Consults: 01/21/23 21:14 Consult Physician Routine Consulting Provider: Nereyda Baker Consult Reason/Comments: H&P for mental health admission Do you want consulting provider notified?: Yes, Notify in am Primary care physician: Jacki Freeman - Discharge Diagnosis(es) (1) Major depressive disorder without psychotic features Current Visit: Yes Status: Acute Priority: High (2) Borderline personality disorder Current Visit: Yes Status: Acute Priority: High (3) Somatoform disorder, unspecified Current Visit: Yes Status: Acute Priority: High (4) Suicidal ideations Current Visit: Yes Status: Acute Priority: High (5) UTI (urinary tract infection) Current Visit: Yes Status: Acute Priority: Medium Hospital Course: Admission HPI: Admission note was completed by senior writer "Patient presented to the hospital ED on 01/21, per EPS note "brought to ER via EMS at the direction of their therapist Naheed Villalobos due to SI w plan to OD, increased depression, anxiety, tearful, overwhelmed, isolating, feels like a burden, tangential, loss of interest, low motivation, frustrated with constant state of depression. Cl has been admitted to [facility] previously and their presentation is a fixated thought process of similar symptoms.". States she wants to end "it" because she is causing pain, and is evasive as to who. And tearfully states she feels she's ruined her sons life, because she feels helpless, and a burden to them.States she had a talk with God, stating if she can't get better, she wants him to take her. She states she is feeling paranoid, and 'keeps looking over her shoulder'. Does not state what she's paranoid about. States her sleep is pretty poor. Appetite is poor. Energy level is poor. Patient counseled on using coping skills. Very soft spoken, with a blank facial expression for most of the interview. Patient has a flight of ideas, and is tangential during the interview. Symatically preoccupied, and catastrophizing, sense of worthlessness. Patient denies, at this time, any suicidal or homicidal ideations intent or plan. At this time patient denies any auditory or visual hallucinations. Patient denies drug/alcohol/tobacco" Hospital course: Upon admission to the unit patient was [directable and agreeable to commence treatment and signed adult voluntary form]. She engaged in therapy both group and individual. Patient was also seen by medical team for history and physical exam. [ Patient was treated for a urinary tract infection initially with 5 days of Macrobid and given also Rocephin IM dose. He lastes UA was negative.] patient BuSpar 20 mg 3 times a day for anxiety, trazodone 100 mg daily at bedtime for mood/insomnia, Seroquel 200 mg for mood augmentation/sleep, Effexor XR 300 mg daily for anxiety/mood, Requip 0.25 mg twice a day for restless leg symptoms, melatonin 5 mg daily at bedtime for sleep. Throughout the course of the hospitalization patient gradually improved with regards to [mood, anxiety], suicidal thoughts, sleep and [returned back to their baseline level of functioning]. Patient does have chronic suicidal ideations, chronic hopelessness and also somatically preoccupied however these did improve over the course of hospitalization. She does not have any imminent plans to harm herself and was more future oriented. On the day of discharge patient denied any homicidal ideations intent or plan denied any auditory or visual hallucinations. Patient endorsed wanting to live for [her health and family.] The patient denied any access to guns or weapons. Patient denied any paranoia and did not endorse any delusions. Patient does [not] have a significant history of substance abuse [and] was counseled on abstaining from all substances including alcohol and marijuana. Patient was also counseled on the medications and need for regular compliance and was encouraged to follow-up with their outpatient appointment for mental health and also for primary care. [Prior to discharge a family meeting will be arranged by social secretary to answer any questions and ensure safety upon discharge.] Due to patient's chronic depression and borderline personality disorder, she is likely to continue to have chronic waxing and waning suicidal ideations however these appear to be mostly resistant to treatment from antidepressants and other psychotropic medications. It was incurred several times the patient and will also be communicated with [facility] the patient should be having more contact as an outpatient and should be referred to the act team. Also suggested to outpatient team she should be referred to either ECT or TMS treatment as patient becomes fairly sensitive to higher doses and stronger antidepressants and medications and this could be viewed as a good alternative combined with DBT and more intense outpatient therapy. Mental status exam: General Appearance: Patient appears to be obese, stated age is alert, pleasant, and cooperative. Patient is in no acute distress and has improved hygiene and g rooming Behavior: Patient is calmly seated without any agitated behavior. Speech: Patient's speech is fluent and nonpressured. Mood/Affect: Patient reports their mood is "the same", affect is congruent and constircted Suicidality/Homicidality: Patient denies having any suicidal or homicidal ideation intent or plan. Perceptions: Patient denies any auditory or visual hallucinations. Though content/process: There is no evidence of any delusional thought content and thought process is linear and goal-directed. [more future oriented]. concrete Memory and concentration: AOX3, grossly intact for the purposes of this session. Can spell "WORLD" backwards correctly. Judgment and insight: [chronically poor/limited, however has] improved with guarded prognosis Impression: Major depressive disorder without psychotic features Borderline personality disorder Somatoform disorder unspecified Suicidal ideations UTI Plan: -Continue with discharge today as patient has improved and stabilized psychiatrically and is not currently an imminent threat to [herself] and/or others. [Patient will remain at chronically elevated risk for harm to self and/or others due to her chronic depressive/borderline characteristics..] -Continue medications: BuSpar 20 mg 3 times a day for anxiety, trazodone 100 mg daily at bedtime for mood/insomnia, Seroquel 200 mg for mood augmentation/sleep, Effexor XR 300 mg daily for anxiety/mood, Requip 0.25 mg twice a day for restless leg symptoms, melatonin 5 mg daily at bedtime for sleep -Patient was counseled on the need for medication compliance and appropriate follow-up at mental health and also primary care for medical issues. Patient verbalized understanding and agreed. -Social work to [arrange for and conduct family meeting to ensure safety upon discharge and answer any questions/concerns.] Social work also to arrange for patients follow up appointments [with [facility]] for psychiatric care along with follow up with primary care provider. -Patient counseled on abstaining from recreational drugs and marijuana and alcohol. Was informed/educated on the adverse effects on their physical and mental health. [Patient verbally agreed and understood]. -Patient was instructed to return to the hospital or seek immediate medical care if their psychiatric or medical symptoms do worsen or reoccur. Allergies Allergy/AdvReac Type Severity Reaction Status Date / Time sulfamethoxazole Allergy Unknown Rash/Hives, Verified 01/22/23 00:59 [From Bactrim] SOB trimethoprim [From Bactrim] Allergy Unknown Rash/Hives, Verified 01/22/23 00:59 SOB Laboratory Results WBC 9.6 k/uL (3.8-10.6) 01/22/23 11:18 RBC 4.61 m/uL (3.80-5.40) 01/22/23 11:18 Hgb 12.4 gm/dL (11.4-16.0) 01/22/23 11:18 Hct 39.1 % (34.0-46.0) 01/22/23 11:18 MCV 84.7 fL (80.0-100.0) 01/22/23 11:18 MCH 26.8 pg (25.0-35.0) 01/22/23 11:18 MCHC 31.7 g/dL (31.0-37.0) 01/22/23 11:18 RDW 13.9 % (11.5-15.5) 01/22/23 11:18 Plt Count 303 k/uL (150-450) 01/22/23 11:18 MPV 9.8 01/22/23 11:18 Neutrophils % 74 % 01/22/23 11:18 Lymphocytes % 15 % 01/22/23 11:18 Monocytes % 7 % 01/22/23 11:18 Eosinophils % 2 % 01/22/23 11:18 Basophils % 0 % 01/22/23 11:18 Neutrophils # 7.1 k/uL (1.3-7.7) 01/22/23 11:18 Lymphocytes # 1.5 k/uL (1.0-4.8) 01/22/23 11:18 Monocytes # 0.7 k/uL (0-1.0) 01/22/23 11:18 Eosinophils # 0.2 k/uL (0-0.7) 01/22/23 11:18 Basophils # 0.0 k/uL (0-0.2) 01/22/23 11:18 Hypochromasia Slight 01/22/23 11:18 Sodium 137 mmol/L (137-145) 01/26/23 21:27 Potassium 4.8 mmol/L (3.5-5.1) 01/26/23 21:27 Chloride 105 mmol/L (98-107) 01/26/23 21:27 Carbon Dioxide 20 mmol/L (22-30) L 01/26/23 21:27 Anion Gap 12 mmol/L 01/26/23 21:27 BUN 32 mg/dL (7-17) H 01/26/23 21:27 Creatinine 1.08 mg/dL (0.52-1.04) H 01/26/23 21:27 Est GFR (CKD-EPI)AfAm 62 (>60 ml/min/1.73 sqM) 01/26/23 21:27 Est GFR (CKD-EPI)NonAf 54 (>60 ml/min/1.73 sqM) 01/26/23 21:27 Glucose 124 mg/dL (74-99) H 01/26/23 21:27 POC Glucose (mg/dL) 81 mg/dL (70-110) 02/03/23 08:20 POC Glu Auto Striper ID Carmita Fabian 02/03/23 08:20 Calcium 9.5 mg/dL (8.4-10.2) 01/26/23 21:27 Total Bilirubin 0.4 mg/dL (0.2-1.3) 01/26/23 21:27 AST 23 U/L (14-36) 01/26/23 21:27 ALT 18 U/L (4-34) 01/26/23 21:27 Alkaline Phosphatase 59 U/L (38-126) 01/26/23 21:27 Total Protein 6.5 g/dL (6.3-8.2) 01/26/23 21:27 Albumin 3.9 g/dL (3.5-5.0) 01/26/23 21:27 TSH 1.270 mIU/L (0.465-4.680) 01/22/23 11:18 Urine Color Yellow 02/03/23 15:39 Urine Appearance Clear (Clear) 02/03/23 15:39 Urine pH 5.0 (5.0-8.0) 02/03/23 15:39 Ur Specific [place] 1.030 (1.001-1.035) 02/03/23 15:39 Urine Protein Negative (Negative) 02/03/23 15:39 Urine Glucose (UA) Negative (Negative) 02/03/23 15:39 Urine Ketones Negative (Negative) 02/03/23 15:39 Urine Blood Negative (Negative) 02/03/23 15:39 Urine Nitrite Negative (Negative) 02/03/23 15:39 Urine Bilirubin Negative (Negative) 02/03/23 15:39 Urine Urobilinogen <2.0 mg/dL (<2.0) 02/03/23 15:39 Ur Leukocyte Esterase Negative (Negative) 02/03/23 15:39 Urine RBC 4 /hpf (0-5) 01/21/23 16:12 Urine WBC 167 /hpf (0-5) H 01/21/23 16:12 Ur Squamous Epith Cells 4 /hpf (0-4) 01/21/23 16:12 Amorphous Sediment Few /hpf (None) H 01/21/23 16:12 Urine Bacteria Many /hpf (None) H 01/21/23 16:12 Hyaline Casts 37 /lpf (0-2) H 01/21/23 16:12 Granular Casts 4 /lpf (0) 01/21/23 16:12 Urine Mucus Many /hpf (None) H 01/21/23 16:12 Urine Opiates Screen Not Detected (NotDetected) 01/21/23 16:12 Ur Oxycodone Screen Not Detected (NotDetected) 01/21/23 16:12 Urine Methadone Screen Not Detected (NotDetected) 01/21/23 16:12 Ur Propoxyphene Screen Not Detected (NotDetected) 01/21/23 16:12 Ur Barbiturates Screen Not Detected (NotDetected) 01/21/23 16:12 U Tricyclic Antidepress Not Detected (NotDetected) 01/21/23 16:12 Ur Phencyclidine Scrn Not Detected (NotDetected) 01/21/23 16:12 Ur Amphetamines Screen Not Detected (NotDetected) 01/21/23 16:12 U Methamphetamines Scrn Not Detected (NotDetected) 01/21/23 16:12 U Benzodiazepines Scrn Not Detected (NotDetected) 01/21/23 16:12 [place] 1.5 mmol/L 01/26/23 07:44 Urine Cocaine Screen Not Detected (NotDetected) 01/21/23 16:12 U Marijuana (THC) Screen Not Detected (NotDetected) 01/21/23 16:12 SARS-CoV-2 (PCR) Not Detected (Not Detectd) 01/31/23 11:00 Vital Signs Temp 97.2 F L 02/04/23 08:33 Pulse 60 02/04/23 08:33 Resp 16 02/04/23 08:33 BP 110/58 02/04/23 08:33 Pulse Ox 96 02/04/23 08:33 FiO2 Intake & Output 02/03/23 02/04/23 02/04/23 18:59 06:59 18:59 Other: Voiding Method Toilet Patient Condition at Discharge: Fair Plan - Discharge Summary Discharge Rx Participant: Yes New Discharge Prescriptions: New traZODone HCL [Desyrel] 100 mg PO HS 30 Days #30 tab Melatonin 5 mg PO HS 15 Days #15 tab rOPINIRole HCL [Requip] 0.25 mg PO BID 15 Days #30 tab busPIRone HCl [Buspar] 20 mg PO TID 30 Days #90 tab Venlafaxine HCl ER [Effexor XR] 300 mg PO DAILY 15 Days #30 cap Cholestyramine (with Sugar) [Questran Packet] 4 gm PO BID@1000,1800 30 Days #1 packet QUEtiapine [SEROquel] 200 mg PO HS 28 Days #14 tab Continue Atorvastatin [Lipitor] 80 mg PO HS Levothyroxine Sodium 150 mcg PO DAILY Albuterol Sulfate [Ventolin HFA] 2 puff INHALATION RT-Q4H PRN PRN Reason: Shortness Of Breath Aspirin 81 mg PO DAILY chew Potassium Chloride ER [K-Dur 10] 10 meq PO DAILY Furosemide [Lasix] 40 mg PO DAILY PRN PRN Reason: Edema Pantoprazole [Protonix] 40 mg PO DAILY Fluticasone Nasal [place] [Flonase Nasal [place]] 2 spray EA NOSTRIL DAILY PRN PRN Reason: Congestion Valsartan [Diovan] 80 mg PO HS Ondansetron [Zofran] 4 mg PO Q8HR PRN PRN Reason: Nausea Acetaminophen-Codeine 300-30mg [Tylenol w/codeine #3] 1 tab PO Q6H PRN PRN Reason: Pain metFORMIN HCL ER [Glucophage XR] 1,000 mg PO BID Nystatin [Nystop] 1 applic TOPICAL BID Discontinued traZODone HCL 150 mg PO HS Venlafaxine HCl [Effexor XR] 225 mg PO DAILY 14 Days #14 tab [place] Carbonate 300 mg PO BID 14 Days #28 cap busPIRone HCL 15 mg PO BID Semaglutide [Rybelsus] 7 mg PO DAILY Discharge Medication List Atorvastatin [Lipitor] 80 mg PO HS 01/22/18 [History] Levothyroxine Sodium 150 mcg PO DAILY 01/22/18 [History] Albuterol Sulfate [Ventolin HFA] 2 puff INHALATION RT-Q4H PRN 10/10/19 [History] Aspirin 81 mg PO DAILY chew 10/15/19 [Rx] Furosemide [Lasix] 40 mg PO DAILY PRN 04/27/20 [History] Potassium Chloride ER [K-Dur 10] 10 meq PO DAILY 04/27/20 [History] Pantoprazole [Protonix] 40 mg PO DAILY 09/16/22 [History] metFORMIN HCL ER [Glucophage XR] 1,000 mg PO BID 09/16/22 [History] Fluticasone Nas[place] [Flonase Nas[place]] 2 spray EA NOSTRIL DAILY PRN 11/20/22 [History] Acetaminophen-Codeine 300-30mg [Tylenol w/codeine #3] 1 tab PO Q6H PRN 01/21/23 [History] Nystatin [Nystop] 1 applic TOPICAL BID 01/21/23 [History] Ondansetron [Zofran] 4 mg PO Q8HR PRN 01/21/23 [History] Valsartan [Diovan] 80 mg PO HS 01/21/23 [History] Cholestyramine (with Sugar) [Questran Packet] 4 gm PO BID@1000,1800 30 Days #1 packet 02/04/23 [Rx] Melatonin 5 mg PO HS 15 Days #15 tab 02/04/23 [Rx] QUEtiapine [SEROquel] 200 mg PO HS 28 Days #14 tab 02/04/23 [Rx] Venlafaxine HCl ER [Effexor XR] 300 mg PO DAILY 15 Days #30 cap 02/04/23 [Rx] busPIRone HCl [Buspar] 20 mg PO TID 30 Days #90 tab 02/04/23 [Rx] rOPINIRole HCL [Requip] 0.25 mg PO BID 15 Days #30 tab 02/04/23 [Rx] traZODone HCL [Desyrel] 100 mg PO HS 30 Days #30 tab 02/04/23 [Rx] Follow up Appointment(s)/Referral(s): [facility] [Outside] - 02/04/23 1:30 pm (02/04 @ 13:30 w/ Naheed Concepcion 02/05 @ 10:00 w/ Lakeisha Corral) Jacki Freeman, [Primary Care Provider] - 1-2 days Activity/Diet/Wound Care/Special Instructions: Pt. is to follow up in Dr. Freeman's office in regards to vaginal bleeding at discharge. Avoid the use of street drugs and alcohol. Take all medications as prescribed. When you are in need of refills on your medications, please contact your medical provider and/or outpatient psychiatrist/provider to have this done. Please go to your scheduled outpatient appointment for aftercare treatment. If symptoms return or become worse, call the crisis line at and/or go to the nearest emergency room for evaluation. National Suicide Hotline 738. Discharge Disposition: HOME SELF-CARE
[2023-02-04] MEDS: MELATONIN 5 MG TABLET PO SCH (20:38)
[2023-02-04] MEDS: QUEtiapine 100 MG TAB PO SCH (20:38)
[2023-02-04] MEDS: ATORVASTATIN 80 MG TAB PO SCH (20:39)
[2023-02-04] MEDS: traZODone HCL 100 MG TAB PO SCH (20:39)
[2023-02-04] MEDS: VALSARTAN 80 MG TAB PO SCH (20:39)
== END 2023-02-04 20:53 | disposition home or self-care (01) | DRG 885 ==
LOC: EC 11:54 → 3MHU 21:03
PROVIDERS: ADMIT Psychiatry & Neurology Psychiatry; ATTEND Psychiatry & Neurology Psychiatry
DX: F33.2 Major depressive disorder, recurrent severe without psychotic features (principal); N39.0 Urinary tract infection, site not specified; R45.851 Suicidal ideations; G25.81 Restless legs syndrome; E11.9 Type 2 diabetes mellitus without complications; E78.5 Hyperlipidemia, unspecified; F41.9 Anxiety disorder, unspecified; F45.9 Somatoform disorder, unspecified; F60.3 Borderline personality disorder; G47.00 Insomnia, unspecified; J45.909 Unspecified asthma, uncomplicated; N93.9 Abnormal uterine and vaginal bleeding, unspecified; R31.9 Hematuria, unspecified; Z63.4 Disappearance and death of family member; Z79.82 Long term (current) use of aspirin; Z79.84 Long term (current) use of oral hypoglycemic drugs; Z79.890 Hormone replacement therapy; Z79.899 Other long term (current) drug therapy; Z83.3 Family history of diabetes mellitus; Z87.442 Personal history of urinary calculi; Z71.3 Dietary counseling and surveillance; Z11.52 Encounter for screening for COVID-19; Z28.21 Immunization not carried out because of patient refusal; Z88.2 Allergy status to sulfonamides; K21.9 Gastro-esophageal reflux disease without esophagitis
CPT/HCPCS: 80053; 80178; 80306; 81001; 81003; 82075; 84443; 85025; 87086; 87635; 99285

== ENCOUNTER → 2023-04-09 | Outpatient (CLI) | payer MEDICARE ==
[~2023-04-09] MED LIST: DOBUTamine DRIP for NUC MED 500 MG in DEXTROSE/WATER 1 250ML.BAG IV PRN; DOBUTamine DRIP for NUC MED 500 MG/250 ML BAG IV ONE
--- NOTE | 2023-04-09 11:06 | US ---
EXAMINATION TYPE: US abdomen complete DATE OF EXAM: 04/09/2023 COMPARISON: NONE CLINICAL INDICATION: Female, 67 years old with history of R00.2 PALPITATIONS; Generalized pain. Mya ent states he has a hard time eating. TECHNIQUE: Multiple sonographic images of the abdomen are obtained. FINDINGS: EXAM MEASUREMENTS: Liver Length: 21.4 cm Gallbladder Wall: 0.2 cm CBD: 0.5 cm Spleen: 11.6 cm Right Kidney: 10.9 x 4.9 x 5.0 cm Left Kidney: 11.1 x 4.3 x 4.6 cm Pancreas: Tail obscured by overlying bowel gas Liver: Enlarged in size. Gallbladder: No stones or wall thickening Evidence for sonographic Montiel's sign: neg CBD: wnl Spleen: wnl Right Kidney: No hydronephrosis or masses seen Left Kidney: No hydronephrosis or masses seen Upper IVC: wnl Abd Aorta: Proximal obscured by overlying bowel gas The liver is homogenous. The intrahepatic portion of the IVC and proximal abdominal aorta are within normal limits. There is no evidence of cholelithiasis. Common bile duct is unremarkable. The visu alized portions of the pancreas are homogenous. The spleen is unremarkable. Kidneys are symmetric a nd free of hydronephrosis. No renal lesions are seen. IMPRESSION: 1. No acute process seen within the abdomen. 2. Hepatomegaly.
--- NOTE | 2023-04-09 11:33 | US ---
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 Uterus: Anteverted Appears heterogenous, suboptimal visualization of fundal region 2. Endometrium: wnl 3. Right Ovary: Obscured by overlying bowel gas 4. Left Ovary: Obscured by overlying bowel gas 5. Bilateral Adnexa: Peristalsing bowel 6. Posterior cul-de-sac: no free fluid IMPRESSION: 1. No evidence of uterine fibroids. 2. No evidence of endometrial thickening. 3. Ovaries not seen due to overlying bowel gas.
--- NOTE | 2023-04-09 12:51 | CA ---
Dobutamine Stress Echocardiogram Report Belinda Welch Age: 67 Gender: F : 1955 Exam Date: 04/09/2023 09:36 Exam Location: [facility] Ordering Physician: Jacki Freeman DO Referring Physician: Carey Sharp [facility] Special Education Aide: Rodrick Llamas Technologist: Ht (in): 60 Wt (lb): 250 Procedure CPT: Indication: R00.2 palpitations ICD-9 Codes: Rhythm: Patient History: Cardiac Medications: SEE LIST Medications in past 24 hours: Contrast: N/A Total Dose (mL): NA Stress Results Protocol: Dobutamine Peak Dose (???g/kg/min): 30 Duration (min:sec): Atropine:(mg) None Target HR: 132 Double Product: 47068 Resting HR: 72 Resting BP: 128 / 72 Peak HR: 136 Peak BP: 123 / 57 Max Predicted HR: 155 88 % Max Predicted HR Stress Summary: BP Response: Reason for Termination: Exceeded target heart rate (85% max predicted) Cardiac Symptoms: NO SYMPTOMS ECG Analysis Resting EKG: Stress EKG: Arrhythmia: Echo Analysis Base Echo Analysis: Low Echo Anaylsis: Peak Echo Analysis: Recovery Echo: MEASUREMENTS (Male/Female) Normal Values CONCLUSIONS Patient underwent dobutamine stress echo with infusion of dobutamine into Stage 3 for a total of 9 minutes and 6 seconds. Patient's maximum heart rate was 136 which represented 87% age- predicted maximum heart rate. Stress EKG portion: At baseline patient's EKG showed normal sinus rhythm, normal axis, no significant ST or T wave abnormalities. At peak dobutamine infusion, EKG showed abnormal response with [address] depressions in the inferior and lateral leads. Stress echo portion: 2-D echocardiogram was performed in the parasternal long, personal short, apical 2 and apical four-chamber views at rest, low-dose, peak infusion and in recovery. At baseline, echocardiogram showed left ventricular ejection fraction 55% without wall motion abnormalities. With peak infusion, echocardiogram shows improvement in left ventricular ejection fraction, increase contractility, decrease in left ventricular end systolic dimension without wall motion abnormalities consistent with a normal response to dobutamine. Conclusions: 1. Abnormal stress EKG portion with [address] depressions. 2. Normal stress echo response to dobutamine infusion without any evidence of inducible ischemia. Dr. Rolando Ni DO (Electronically Signed) Final Date: 09 April 2023 12:50
== END | disposition home or self-care (01) ==
LOC: RADUSWWP 07:46
PROVIDERS: ATTEND Family Medicine
DX: R94.31 Abnormal electrocardiogram [ECG] [EKG] (principal); R16.0 Hepatomegaly, not elsewhere classified; R00.2 Palpitations; N95.0 Postmenopausal bleeding
CPT/HCPCS: 76700; 76830; 93351

== ENCOUNTER → 2023-05-14 | Outpatient (CLI) | payer MEDICARE, OTHER ==
--- NOTE | 2023-05-14 13:24 | US ---
EXAMINATION TYPE: US kidneys/renal and bladder DATE OF EXAM: 05/14/2023 COMPARISON: NONE CLINICAL INDICATION: Female, 67 years old with history of N18.30 CHRONIC KIDNEY DISEASE, STAGE 3 UNSP ECIFIED; CKD EXAM MEASUREMENTS: Right Kidney: 11.0x4.4x4.7 cm Left Kidney: 10.4x4.9x5.9 cm Right Kidney: No hydronephrosis or masses seen Left Kidney: No hydronephrosis or masses seen Bladder: wnl Bilateral Jets seen: Yes visualization of the bladder limited by bowel and body habitus There is no evidence for hydronephrosis at this point in time. 3 mm shadowing calculus present in the left kidney. No masses are identified. The urinary bladder is anechoic. Bilateral ureteral jets a re seen. IMPRESSION: 1. No evidence of obstructive uropathy or parenchymal abnormality. 2. Nonobstructive 3 mm left renal calculus.
== END | disposition home or self-care (01) ==
LOC: RADUSWWP 11:58
PROVIDERS: ATTEND Family Medicine
DX: N20.0 Calculus of kidney (principal); N18.30 Chronic kidney disease, stage 3 unspecified
CPT/HCPCS: 76770

== ENCOUNTER 2024-02-02 16:27 | Observation (INO) | payer MEDICARE, OTHER ==
[2024-02-02 17:00] LABS: Basophils # (A) 0.1 k/uL (0-0.2); Basophils % (A) 1 %; Eosinophils # (A) 0.2 k/uL (0-0.7); Eosinophils % (A) 2 %; HCT 35.4 % (34.0-46.0); HGB 11.4 gm/dL (11.4-16.0); Lymphocytes # (A) 2.4 k/uL (1.0-4.8); Lymphocytes % (A) 26 %; MCH 26.6 pg (25.0-35.0); MCHC 32.2 g/dL (31.0-37.0); MCV 82.5 fL (80.0-100.0); Mean Platelet Volume 8.5; Monocytes # (A) 0.6 k/uL (0-1.0); Monocytes % (A) 7 %; Neutrophils # (A) 5.9 k/uL (1.3-7.7); Neutrophils % (A) 64 %; Platelet Count 265 k/uL (150-450); RBC 4.29 m/uL (3.80-5.40); RDW 13.6 % (11.5-15.5); WBC 9.3 k/uL (3.8-10.6)
[2024-02-02 17:12] LABS: INR 1.1 (<1.2); Partial Thromboplastin Time 23.2 sec (22.0-30.0); Prothrombin Time 11.5 sec (10.0-12.5)
--- NOTE | 2024-02-02 17:15 | ED ---
Chest Pain HPI - General Chief Complaint: Chest Pain Stated Complaint: Chest pain Time Seen by Provider: 02/02/24 16:49 Source: patient, EMS Mode of arrival: EMS Limitations: no limitations - History of Present Illness Initial Comments: This is a pleasant 68-year-old female with a past medical history of diabetes, hypertension presenting today for left-sided chest pain. States has been ongoing for the last 2 to 3 days. Worsened today on her way to her doctor's appointment. Described as a pressure on the left side of her chest that intermittently rates to her jaw, down her arm and towards her back. Endorse associated shortness of breath and tingling in her hands and feet. Patient has no history of prior [place] though does have a significant family history with 3 brothers have had heart attacks at a young age, patient's father also had heart attack in his 50s. She denies cough or hemoptysis. No lower extremity swelling. No recent travel surgery or hospitalization. No history of cancers and is a non-smoker. Is not on any blood thinners. No recent fevers. Endorses chills. No changes in vision, slurred speech or strokelike symptoms according to patient. Currently rates pain as 10 out of 10. Received aspirin and sublingual nitroglycerin prior to arrival without improvement in her symptoms. - Related Data Home Medications Medication Instructions Recorded Confirmed Atorvastatin [Lipitor] 80 mg PO HS 01/22/18 02/02/24 Albuterol Sulfate [Ventolin HFA] 2 puff INHALATION RT-Q4H PRN 10/10/19 02/02/24 Furosemide [Lasix] 40 mg PO DAILY PRN 04/27/20 02/02/24 metFORMIN HCL ER [Glucophage XR] 1,000 mg PO BID 09/16/22 02/02/24 Fluticasone Nasal [place] [Flonase 1 spray EA NOSTRIL DAILY PRN 11/20/22 02/02/24 Nasal [place]] Famotidine [Pepcid] 40 mg PO DAILY PRN 02/02/24 02/02/24 Levothyroxine Sodium [Synthroid] 112 mcg PO DAILY 02/02/24 02/02/24 QUEtiapine [SEROquel] 100 mg PO HS 02/02/24 02/02/24 Valsartan [Diovan] 40 mg PO DAILY 02/02/24 02/02/24 Venlafaxine HCl ER [Effexor XR] 150 mg PO DAILY 02/02/24 02/02/24 Venlafaxine HCl [Effexor XR] 75 mg PO DAILY 02/02/24 02/02/24 busPIRone HCl [Buspar] 20 mg PO BID 02/02/24 02/02/24 Previous Rx's Medication Instructions Recorded Aspirin 81 mg PO DAILY chew 10/15/19 Allergies Allergy/AdvReac Type Severity Reaction Status Date / Time sulfamethoxazole Allergy Unknown Rash/Hives, Verified 02/02/24 19:08 [From Bactrim] SOB trimethoprim [From Bactrim] Allergy Unknown Rash/Hives, Verified 02/02/24 19:08 SOB Review of Systems ROS Statement: Those systems with pertinent positive or pertinent negative responses have been documented in the HPI. ROS Other: All systems not noted in ROS Statement are negative. EKG Findings - EKG Comments: EKG Findings:: Initial EKG performed at 1645 new right 9 sinus rhythm, rate 63 bpm, NC interval 159 ms, QRS duration 86 ms, QT/QTc 412/4 to 20 ms, normal axis, no ST elevations or depressions, no arrhythmia. Repeat EKG performed at 1726 due to ongoing chest pain, sinus rhythm, rate 64 bpm, NC interval 181 ms, QRS duration 86 ms, QT/QTc 420/429 ms, no ST elevations or depressions, normal axis, no significant changes from prior Past Medical History Past Medical History: Asthma, Chest Pain / Angina, Diabetes Mellitus, GERD/R eflux, Hyperlipidemia, Sleep Apnea/CPAP/BIPAP, Thyroid Disorder Additional Past Medical History / Comment(s): freddy-not using her cpap machine anemia, chest pain "from anxiety", sometimes low BP, occ palpitations, diverticulosis, kidney stone, "leaky heart valve".fall in broke rib on rt side, 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 Past Anesthesia/Blood Transfusion Reactions: Family History of Problems w/ Anesthesia, Motion Sickness Additional Past Anesthesia/Blood Transfusion Reaction / Comment(s): cl austerphobia. pt's sister had diff breathing from anesthesia Past Psychological History: Anxiety, Depression, Panic Disorder Smoking Status: Never smoker Past Alcohol Use History: None Reported Past Drug Use History: None Reported - Past Family History Son(s) Family Medical History: No Reported History Additional Family Medical History / Comment(s): She has 2 sons with no major medical problems. Patient does not have any daughters. Mother Family Medical History: Renal Disease Additional Family Medical History / Comment(s): Mother at age 80 from renal failure. Father Family Medical History: Coronary Artery Disease (CAD), CVA/TIA Additional Family Medical History / Comment(s): Father at age 67 with history of [place] and stroke Brother(s) Family Medical History: Cancer, Coronary Artery Disease (CAD), Diabetes Mellitus, Hyperlipidemia, Hypertension Additional Family Medical History / Comment(s): She has total of 5 brothers and all had history of coronary artery disease and CABG, hypertension, hyperlipidemia, diabetes. Sister(s) Family Medical History: Cancer Additional Family Medical History / Comment(s): one sister of colon cancer, second sister had ovarian cancer General Exam - General Exam Comments Initial Comments: PE: CONSTITUTIONAL: No apparent distress, chronically ill appearing, nontoxic, generalized pallor SKIN: Warm, dry, no jaundice, hives or petechiae EYES: Pupils are equally round, extraocular movements intact without nystagmus, clear conjunctiva, non-icteric sclera HENT: Normocephalic, atraumatic, moist mucus membranes, oropharynx clear without exudates NECK: , Full range of motion, normal appearance PULMONARY: Clear to auscultation without wheezes, rhonchi, or rales, normal excursion, no accessory muscle use and no stridor, mild conversational dyspnea CARDIOVASCULAR: Regular rate, rhythm, normal S1 and S2,S3 noted . No appreciated murmurs, rubs Strong radial pulses with intact distal perfusion. No lower extremity edema GASTROINTESTINAL: Soft, active bowel sounds throughout, minimal epigastric TTP, non-distended, no palpable masses, no rebound or guarding. No hepatosplenomegaly MUSCULOSKELETAL: Extremities have no gross deformity, no edema, redness, or swelling. No calf swelling NEUROLOGIC:_a/o x 3, GCS 15, normal mentation and speech. Moves all extremities x 4 without motor or sensory deficit PSYCHIATRIC:_normal mood and affect, thought process is clear and linear Limitations: no limitations Course Vital Signs 02/02/24 02/02/24 02/02/24 16:40 17:29 18:17 Temperature 99.4 F 98.9 F Pulse Rate 66 72 72 Pulse Rate [ Pulse Oximetery ] Respiratory 18 18 18 Rate Blood Pressure 133/71 116/69 129/73 Blood Pressure [Right Arm] O2 Sat by Pulse 99 98 96 Oximetry 02/02/24 02/02/24 02/02/24 19:41 20:51 21:57 Temperature 98.8 F 98.6 F 97.7 F Pulse Rate 65 75 Pulse Rate [ 64 Pulse Oximetery ] Respiratory 16 18 17 Rate Blood Pressure 124/69 121/75 Blood Pressure 117/68 [Right Arm] O2 Sat by Pulse 98 96 96 Oximetry Chest Pain MDM - MDM Was pt. sent in by a medical professional or institution (, PA, CANE PACKER, urgent care, hospital, or shelter...) When possible be specific @ -No Did you speak to anyone other than the patient for history (EMS, parent, family, police, friend...)? What history was obtained from this source @ -No Did you review nursing and triage notes (agree or disagree)? Why? @ -I reviewed and agree with nursing and triage notes Were old charts reviewed (outside hosp., previous admission, EMS record, old EKG, old radiological studies, urgent care reports/EKG's, shelter records)? Report findings @Medical records reviewed-Patient did have in dobutamine stress test on 04/09/2023 it was noted that acute dobutamine infusion patient did have an abnormal response with [address] depressions in the inferior leads Differential Diagnosis (chest pain, altered mental status, abdominal pain women, abdominal pain men, vaginal bleeding, weakness, fever, dyspnea, syncope, headache, dizziness, GI bleed, back pain, seizure, CVA, palpatations, mental health, musculoskeletal)? @ -Differential Chest Pain: Stable Angina, Unstable Angina, STEMI, NSTEMI Aortic Dissection, pericarditis, pleurisy, chostochondirits, Pneumothorax, Musculoskeletal, Esophageal Spasm GERD, Cholecystitis, Pancreatitis, Zoster, this is not meant to be an all- inclusive list. Patient has equal pulses in all 4 extremities and pain is describes as pressure intermittently radiating to left shoulder blade but no tearing pain radiating to the back, patient is not significantly hypertensive on arrival, therefor at this time I have a very low suspicion for dissection and CTA was not ordered. EKG interpreted by me (3pts min.). @See above, sinus rhythm, some T wave flattening in V2, V3, no ST elevations or depressions, sinus rhythm, rate 63 bpm, NC interval 159 ms, QRS duration 86 ms, QT/QTc 412/4 to 20 ms, normal axis X-rays interpreted by me (1pt min.). @Mild cardiomegaly, no consolidations or pleural effusions CT interpreted by me (1pt min.). @ -None done U/S interpreted by me (1pt. min.). @ -None done What testing was considered but not performed or refused? (CT, X-rays, U/S, labs)? Why? @ -None What meds were considered but not given or refused? Why? @Considered additional dose of morphine however patient play declined and requested Dilaudid instead so this was ordered Did you discuss the management of the patient with other professionals (professionals i.e. , PA, CANE PACKER, lab, RT, psych nurse, home health care social worker, clinical practitioner, teacher, forest officer, block and case maker)? Give summary @ -No Was smoking cessation discussed for >3mins.? @ -No Yes 35 minutes, spent assessing patient, obtaining hx, reassessment of patient, ordering and interpretation of labs and imaging Were there social determinants of health that impacted care today? How? (Homelessness, low income, unemployed, alcoholism, drug addiction, transportation, low edu. Level, literacy, decrease access to med. care, snf, rehab)? @ -No Was there de-escalation of care discussed even if they declined (Discuss DNR or withdrawal of care, Hospice)? @ -No What co-morbidities impacted this encounter? (DM, HTN, Smoking, COPD, CAD, Cancer, CVA, ARF, Chemo, Hep., AIDS, mental health diagnosis, sleep apnea, morbid obesity)? @Obesity, diabetes, hypertension Was patient admitted / discharged? Hospital course, mention meds given and route, prescriptions, significant lab abnormalities, going to OR and other pertinent info. @Admission Patient is a 68-year-old female past medical history of diabetes, hypertension, obesity presenting for left-sided chest pain that radiates to her jaw and down her left arm, with a significant family history of cardiac disease. On asse ssment patient is somewhat pale and ill-appearing, no acute distress though does have mild conversational dyspnea. Reviewed EKG which does not show any evidence of ST elevation OH. Lungs are clear to auscultation bilaterally, 2+ pulses in the bilateral radial and dorsalis pedis, no LE edema, abdomen is somewhat TTP in the upper quadrants and epigastrium though active bowel sounds, nondistended. Plan for chest pain workup as well as D dimer, Well's score 0, lipase, amylase, urinalysis, morphine, patient did previously see aspirin prior to arrival as well as nitro without relief of her pain. Labs significant for troponin less than 0.012, magnesium 1.5. Ordered replacement. On reassessment patient appears improved, less pale and more well appearing, endorses mild improvement in pain, now 7 out of 10, was offering additional morphine however states that Dilaudid has helped her pain more in the past without associated nausea. 0.5 mg Dilaudid ordered. Discussed with patient plan for admission. She is agreeable plan of care. Case discussed with KARLENE Young, kindly assess patient for admission. I was updated by RN, that prior to taking patient stairs she declined Dilaudid admini stration for her chest pain. Undiagnosed new problem with uncertain prognosis? @ -No Drug Therapy requiring intensive monitoring for toxicity (Heparin, Nitro, Insulin, Cardizem)? @ -No Were any procedures done? @ -No Diagnosis/symptom? @ -Unstable angina Acute, or Chronic, or Acute on Chronic? @ acute Uncomplicated (without systemic symptoms) or Complicated (systemic symptoms)? complicated Side effects of treatment? @ -No Exacerbation, Progression, or Severe Exacerbation? @ -No Yes if allowed to continue unmonitored or untreated could ultimately result in OH] Disposition Clinical Impression: Unstable angina pectoris, Hypomagnesemia Disposition: ADMITTED IP TO THIS HOSP Condition: Stable
[2024-02-02 17:22] LABS: ALT 14 U/L (4-34); AST 20 U/L (14-36); African American GFR (CKD) 73 (>60 ml/min/1.73 sqM); Albumin 3.7 g/dL (3.5-5.0); Alkaline Phosphatase 59 U/L (38-126); Anion Gap 9 mmol/L; Blood Urea Nitrogen 18 mg/dL (7-17); Calcium 8.7 mg/dL (8.4-10.2); Carbon Dioxide 19 mmol/L (22-30); Chloride 111 mmol/L (98-107); Glucose 75 mg/dL (74-99); Non-African American GFR(CKD) 63 (>60 ml/min/1.73 sqM); Potassium 3.8 mmol/L (3.5-5.1); Sodium 139 mmol/L (137-145); Total Bilirubin 0.7 mg/dL (0.2-1.3)
[2024-02-02 17:29] LABS: Magnesium 1.5 mg/dL (1.6-2.3)
[2024-02-02 17:33] LABS: NT-Pro-B-Type Natriuretic Pept 47 pg/mL
[2024-02-02] MEDS: ONDANSETRON 4 MG/2 ML VIAL IVP STA (17:35)
[2024-02-02] MEDS: MORPHINE SULFATE 4 MG/ML SYRINGE IV STA (17:36)
--- NOTE | 2024-02-02 17:52 | XR ---
EXAMINATION TYPE: XR chest 2V DATE OF EXAM: 02/02/2024 5:21 PM COMPARISON: Chest radiographs from 09/16/2022 CLINICAL INDICATION: Female, 68 years old with history of c/p SOB; [facility] TECHNIQUE: XR chest 2V Frontal and lateral views of the chest. FINDINGS: Lungs/Pleura: There is no evidence of pleural effusion, focal consolidation, or pneumothorax. Pulmonary vascularity: Unremarkable. Heart/mediastinum: Cardiomediastinal silhouette is unremarkable. Musculoskeletal: No acute osseous pathology. IMPRESSION: No acute cardiopulmonary disease/process. [facility], , 02/02/2024 5:50 PM
[2024-02-02] MEDS: MAGNESIUM SULFATE-D5W PMX 1 GM in DEXTROSE/WATER 1 100ML.BAG IVPB SCH (18:06)
[2024-02-02] MEDS ORDERED: NITROGLYCERIN SL TABS 0.4 MG TAB SUBLINGUAL PRN (19:49)
[2024-02-02] MEDS: HYDROmorphone 0.5 MG/0.5 ML SYRINGE IVP STA (21:05)
[2024-02-02 21:19] LABS: Appearance,Urine Clear (Clear); Bilirubin,Urine Negative (Negative); Blood,Urine Negative (Negative); Color,Urine Yellow; Glucose,Urine (UA) Negative (Negative); Ketones,Urine Negative (Negative); Leukocyte Esterase,Urine Negative (Negative); Nitrite,Urine Negative (Negative); Protein,Urine Trace (Negative); Urobilinogen,Urine <2.0 mg/dL (<2.0)
[2024-02-02] MEDS ORDERED: FUROSEMIDE 40 MG TAB PO PRN (21:21)
[2024-02-02] MEDS ORDERED: FLUTICASONE NASAL 50MCG/SPRAY 16GM BTL EA NOSTRIL PRN (21:21)
[2024-02-02] MEDS: QUEtiapine 100 MG TAB PO SCH (21:41)
[2024-02-03] MEDS: HEPARIN SODIUM,PORCINE 5,000 UNIT/ML 1 ML VIAL SQ SCH (00:14)
[2024-02-03] MEDS: SODIUM CHLORIDE 0.9% 1,000 ML IV SCH ×2 (00:41→23:49)
[2024-02-03] MEDS: LEVOTHYROXINE 112 MCG TAB PO SCH (07:41)
[2024-02-03] MEDS: busPIRone HCl 10 MG TAB PO SCH (07:41)
[2024-02-03] MEDS: VENLAFAXINE HCL ER 75 MG CAP PO SCH (07:42)
[2024-02-03] MEDS: ASPIRIN 325 MG TAB PO SCH (07:42)
[2024-02-03] MEDS: VALSARTAN 40 MG TAB PO SCH (07:42)
[2024-02-03] MEDS: metFORMIN 500 MG TAB PO SCH (07:42)
[2024-02-03 08:49] LABS: Chol/HDL Ratio 2.63 Ratio; LDL Cholesterol,Calculated 30.6 mg/dL (0.0-131.0)
[2024-02-03] MEDS ORDERED: VENLAFAXINE HCL ER 150 MG CAP PO SCH (09:00)
[2024-02-03] MEDS: MORPHINE SULFATE 4 MG/ML SYRINGE IV PRN (10:00)
[2024-02-03] MEDS: ALBUTEROL NEBULIZED 2.5 MG/3 ML INHALATION PRN (10:21)
[2024-02-03] MEDS: KETOROLAC 15 MG/ML 1 ML VIAL IVP STA (10:35)
[2024-02-03] MEDS: FAMOTIDINE 20 MG TAB PO PRN (10:35)
[2024-02-03] MEDS: ALPRAZolam 0.25 MG TAB PO PRN (10:35)
[2024-02-03] MEDS: ACETAMINOPHEN TAB 325 MG TAB PO PRN (14:40)
[2024-02-03] MEDS: MORPHINE SULFATE 2 MG/ML SYRINGE IVP PRN (18:02)
[2024-02-03 20:54] LABS: Glucose,Whole Blood 125 mg/dL (70-110)
[2024-02-03] MEDS: ATORVASTATIN 80 MG TAB PO SCH (22:36)
[2024-02-03] MEDS: SODIUM CHLORIDE 0.9% 250 ML IV SCH (23:27)
--- NOTE | 2024-02-03 23:52 | CONS ---
CONSULTATION HISTORY OF PRESENT ILLNESS: This is a 68-year-old morbidly obese lady with a history of hypertension, type 2 diabetes, obesity, and lower extremity edema and also has some bronchial asthma. She sees me in the office on a regular basis and as recently as March of this year, she had a dobutamine echo that was normal. In January 2020, her cardiac cath revealed no significant obstructive disease with some proximal LAD calcification. Her diabetes according to her has been under decent control. She came into the hospital with complaints of having chest pain. Pain seems to be persistent, continuous, sharp in nature sometimes, worsened today when she takes a deep breath. Apparently, this is an ongoing pain for nearly 3 days and she has some tenderness on the chest wall as well. Quality of pain is atypical. There is a significant amount of anxiety. She is also grieving the loss of her brother who had CAD and also another brother who had CAD. She is quite anxious about her heart condition, but the quality of pain is atypical. Diabetes under good control. Troponins are normal. EKG does not reveal acute changes. PAST MEDICAL HISTORY: 1. Obesity. 2. Hypertension. 3. Type 2 diabetes. 4. Unremarkable cardiac cath in 2019. MEDICATIONS: Medications at home include, 1. Valsartan. 2. Effexor. 3. Levothyroxine. 4. Metformin. 5. Lasix. 6. Atorvastatin. EKG revealed sinus mechanism, nonspecific ST-T changes. Laboratory data revealed 3 troponins are unremarkable and renal function is normal. Cholesterol level is good. PHYSICAL EXAMINATION: VITAL SIGNS: Normal. NECK: There is no JVD. CARDIAC: S1, S2 heard normally, somewhat distantly. No significant murmurs. LUNGS: Revealed bilateral decent air entry. ABDOMEN: Soft. LOWER EXTREMITIES: Revealed diminished pulses, trace edema. CENTRAL NERVOUS SYSTEM: Normal. IMPRESSION: 1. Chest pain seems atypical with some tenderness. 2. Hypertension. 3. Type 2 diabetes mellitus. 4. Obesity. 5. Hyperlipidemia. 6. Obstructive sleep apnea, wears CPAP. RECOMMENDATIONS: I am recommending that we continue her medications. I will give her some symptomatic treatment with Toradol IV 1 dose and see if that helps her. Increase activity and we will perform a dobutamine echo tomorrow. I discussed my thoughts in detail with the patient. Reassured her we will not do any aggressive intervention at this time. Based on clinical course, we will make further recommendations. MMODL / IJN: [id number] /
[2024-02-04] MEDS: SODIUM CHLORIDE 0.9% 250 ML IV ONE (05:14)
[2024-02-04 05:34] LABS: Basophils # (A) 0.1 k/uL (0-0.2); Basophils % (A) 1 %; Eosinophils # (A) 0.2 k/uL (0-0.7); Eosinophils % (A) 2 %; HCT 34.4 % (34.0-46.0); HGB 10.7 gm/dL (11.4-16.0); Hypochromasia Moderate; Lymphocytes # (A) 2.2 k/uL (1.0-4.8); Lymphocytes % (A) 32 %; MCH 26.6 pg (25.0-35.0); MCHC 31.3 g/dL (31.0-37.0); MCV 85.2 fL (80.0-100.0); Mean Platelet Volume 8.6; Monocytes # (A) 0.4 k/uL (0-1.0); Monocytes % (A) 6 %; Neutrophils # (A) 3.8 k/uL (1.3-7.7); Neutrophils % (A) 55 %; Platelet Count 219 k/uL (150-450); RBC 4.04 m/uL (3.80-5.40); RDW 13.8 % (11.5-15.5); WBC 6.8 k/uL (3.8-10.6)
[2024-02-04 05:55] LABS: African American GFR (CKD) 55 (>60 ml/min/1.73 sqM); Anion Gap 10 mmol/L; Blood Urea Nitrogen 23 mg/dL (7-17); Calcium 8.6 mg/dL (8.4-10.2); Carbon Dioxide 18 mmol/L (22-30); Chloride 112 mmol/L (98-107); Glucose 104 mg/dL (74-99); Magnesium 1.9 mg/dL (1.6-2.3); Non-African American GFR(CKD) 47 (>60 ml/min/1.73 sqM); Potassium 4.4 mmol/L (3.5-5.1); Sodium 140 mmol/L (137-145)
--- NOTE | 2024-02-04 05:56 | P.HPIM ---
History of Present Illness H&P Date: 02/03/24 This is a 68-year-old female who presented to the emergency department via EMS with chest pain. Patient was at her doctor's office, Dr. Parker undergoing diabetic exam and reports to having chest pain and shortness of breath when walking there. EKG was performed and patient was sent to the emergency department for further evaluation. Patient has significant past medical history of asthma, angina, diabetes mellitus, GERD, hyperlipidemia, sleep apnea, not using a CPAP, hypothyroid, anxiety/depression. Patient reports a pressure like sensation in the sternal area that radiated up to her shoulder and down her left arm. Patient was admitted for chest pain with cardiology consultation. Trop onins have been negative and chest x-ray was done showing no acute process. REVIEW OF SYSTEMS: CONSTITUTIONAL: No fever, no malaise, no fatigue. HEENT: No recent visual problems or hearing problems. Denied any sore throat. CARDIOVASCULAR: Reports of intermittent chest pain, orthopnea, PND, no p alpitations, no syncope. PULMONARY: Reports of shortness of breath with the chest pain, no cough, no hemoptysis. GASTROINTESTINAL: No diarrhea, no nausea, no vomiting, no abdominal pain. NEUROLOGICAL: No headaches, no weakness, no numbness. HEMATOLOGICAL: Denies any bleeding or petechiae. GENITOURINARY: Denies any burning micturition, frequency, or urgency. MUSCULOSKELETAL/RHEUMATOLOGICAL: Denies any joint pain, swelling, or any muscle pain. ENDOCRINE: Denies any polyuria or polydipsia. The rest of the 14-point review of systems is negative. PHYSICAL EXAMINATION: GENERAL: The patient is alert and oriented x3, not in any acute distress. Well developed, elderly appearing, morbidly obese HEENT: Pupils are round and equally reacting to light. EOMI. No scleral icterus. No conjunctival pallor. Normocephalic, atraumatic. No pharyngeal erythema. No thyromegaly. CARDIOVASCULAR: S1 and S2 present. No murmurs, rubs, or gallops. PULMONARY: Chest is clear to auscultation, no wheezing or crackles. ABDOMEN: Soft, obese, nontender, nondistended, normoactive bowel sounds. No palpable organomegaly. MUSCULOSKELETAL: No joint swelling or deformity. EXTREMITIES: No cyanosis, clubbing, or pedal edema. NEUROLOGICAL: Gross neurological examination did not reveal any focal deficits. SKIN: No rashes. Assessment: Chest pain, rule out ACS History of asthma, not in exacerbation Diabetes mellitus, type II, [id number] History of GERD Hyperlipidemia History of sleep apnea and does not use CPAP Hypothyroidism Morbid obesity with a BMI of 56.2 History of anxiety/depression GI prophylaxis DVT prophylaxis Full code Plan: Patient admitted for chest pain as she was at her doctor's office and experience shortness of breath with chest pressure and was sent here for further e valuation. Troponins have been negative and cardiology following who is Dr. Reyes her primary manual tester recommending continued telemetry monitoring and stress test in the morning. Patient will be n.p.o. at night. Recommend holding valsartan as blood pressures have been low Follow-up on repeat labs Encourage increase activity as tolerated Home medications reviewed and resumed as appropriate If stress testing is negative, consider discharge in the next 24 hours. The impression and plan of care has been dictated by Nora Barroso, Nurse Practitioner as directed. Dr. Fatmata MD I have performed a history and examination and MDM of this patient, discussed the same with the dictator, and agree with the dictator's assessment and plan as written ,documented as a scribe. Based on total visit time, I have performed more than 50% of the visit. 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 Past Anesthesia/Blood Transfusion Reactions: Family History of Problems w/ Anesthesia, Motion Sickness Additional Past Anesthesia/Blood Transfusion Reaction / Comment(s): clausterphobia. pt's sister had diff breathing from anesthesia Past Psychological History: Anxiety, Depression, Panic Disorder Smoking Status: Never smoker Past Alcohol Use History: None Reported Past Drug Use History: None Reported - Past Family History Son(s) Family Medical History: No Reported History Additional Family Medical History / Comment(s): She has 2 sons with no major medical problems. Patient does not have any daughters. Mother Family Medical History: Renal Disease Additional Family Medical History / Comment(s): Mother at age 80 from renal failure. Father Family Medical History: Coronary Artery Disease (CAD), CVA/TIA Additional Family Medical History / Comment(s): Father at age 67 with history of [place] and stroke Brother(s) Family Medical History: Cancer, Coronary Artery Disease (CAD), Diabetes Mellitus, Hyperlipidemia, Hypertension Additional Family Medical History / Comment(s): She has total of 5 brothers and all had history of coronary artery disease and CABG, hypertension, hyperlipidemia, diabetes. Sister(s) Family Medical History: Cancer Additional Family Medical History / Comment(s): one sister of colon cancer, second sister had ovarian cancer Medications and Allergies Home Medications Medication Instructions Recorded Confirmed Type Atorvastatin [Lipitor] 80 mg PO HS 01/22/18 02/02/24 History Albuterol Sulfate [Ventolin HFA] 2 puff INHALATION RT-Q4H PRN 10/10/19 02/02/24 History Aspirin 81 mg PO DAILY chew 10/15/19 02/02/24 Rx Furosemide [Lasix] 40 mg PO DAILY PRN 04/27/20 02/02/24 History metFORMIN HCL ER [Glucophage XR] 1,000 mg PO BID 09/16/22 02/02/24 History Fluticasone Nasal [place] [Flonase 1 spray EA NOSTRIL DAILY PRN 11/20/22 02/02/24 History Nasal [place]] Famotidine [Pepcid] 40 mg PO DAILY PRN 02/02/24 02/02/24 History Levothyroxine Sodium [Synthroid] 112 mcg PO DAILY 02/02/24 02/02/24 History QUEtiapine [SEROquel] 100 mg PO HS 02/02/24 02/02/24 History Valsartan [Diovan] 40 mg PO DAILY 02/02/24 02/02/24 History Venlafaxine HCl ER [Effexor XR] 150 mg PO DAILY 02/02/24 02/02/24 History Venlafaxine HCl [Effexor XR] 75 mg PO DAILY 02/02/24 02/02/24 History busPIRone HCl [Buspar] 20 mg PO BID 02/02/24 02/02/24 History Allergies Allergy/AdvReac Type Severity Reaction Status Date / Time sulfamethoxazole Allergy Unknown Rash/Hives, Verified 02/02/24 19:08 [From Bactrim] SOB trimethoprim [From Bactrim] Allergy Unknown Rash/Hives, Verified 02/02/24 19:08 SOB Physical Exam Vitals: Vital Signs Temp Pulse Pulse Resp BP BP Pulse Ox 02/04/24 01:31 98.3 F 64 16 92/48 95 02/03/24 22:16 69 18 83/51 02/03/24 22:10 24 02/03/24 20:58 64 93/56 02/03/24 20:00 98.6 F 58 L 16 86/53 95 02/03/24 19:49 95 02/03/24 18:35 72 02/03/24 18:23 72 02/03/24 17:29 70 104/65 95 02/03/24 16:03 60 02/03/24 15:52 60 02/03/24 14:36 98.1 F 66 17 100/66 96 02/03/24 10:37 60 02/03/24 10:21 56 L 02/03/24 09:43 70 112/64 100 02/03/24 07:00 97.6 F 67 17 111/68 99 Intake and Output 02/03/24 02/03/24 02/04/24 14:59 22:59 06:59 Intake Total 118 598 0 Balance 118 598 0 Intake: Oral 118 598 0 Other: Voiding Method Toilet # Voids 3 1 2 Results CBC & Chem 7: 02/04/24 05:04 02/02/24 16:51 Labs: Abnormal Lab Results - Last 24 Hours (Table) 02/03/24 02/03/24 02/04/24 Range/Units 05:18 20:53 05:04 Hgb 10.7 L (11.4-16.0) gm/dL POC Glucose (mg/dL) 125 H (70-110) mg/dL HDL Cholesterol 34.60 L (40.00-60.00) mg/dL
[2024-02-04 06:09] LABS: Glucose,Whole Blood 110 mg/dL (70-110)
[2024-02-04] MEDS ORDERED: DOBUTamine DRIP for NUC MED 500 MG in DEXTROSE/WATER 1 250ML.BAG IV PRN ×2 (08:30→10:00)
[2024-02-04] MEDS: PANTOPRAZOLE 40 MG/10 ML VIAL IVP SCH (08:35)
--- NOTE | 2024-02-04 10:02 | P.PN ---
Subjective Progress Note Date: 02/04/24 This is a 68-year-old female with past medical history of obesity, hypertension, diabetes mellitus type 2, lower extremity edema, bronchial asthma. Patient follows in the office with Dr. ANTONIO Reyes. In January 2020, her cardiac catheterization revealed no significant obstructive disease with some proximal LAD calcification. Diabetes according to the patient is under decent control. Patient presented to the hospital with chest pain that was persistent, continuous and sharp in nature. It worsened when she took a deep breath. The pain has been going on for 3 days with some tenderness on the chest wall. Quality of the pain is atypical. There is significant amount of anxiety as well. Patient is grieving the loss of her brother who had coronary artery disease and another brother with CAD. She is quite anxious regarding her own heart condition but the quality of pain is atypical. Troponins came back normal. EKG did not show any acute changes. Patient was scheduled for dobutamine stress echocardiogram today but unfortunately, patient developed diarrhea 3 times this morning as well as some nausea and upset stomach. We are canceling the dobutamine stress echo and rescheduling for tomorrow and Zofran added. Blood pressure 131/80, heart rate 67, pulse ox 97% on room air. Repeat blood work reveals sodium 140, potassium 4.4, BUN 23 creatinine 1.2. Triglycerides 129, cholesterol 91, LDL 30, HDL 34. Physical examination: Gen: This is a 68-year-old female appears to be uncomfortable only because of nausea. VS: reviewed LUNGS: Bilateral air entry. No intercostal retractions. HEART: S1, S2 heard normally, somewhat distant only. No significant murmurs ABDOMEN: Soft No tenderness. EXTREMITIES: Diminished pulses, trace edema NEUROLOGICAL: Patient is awake, alert and oriented x3. Assessment: Atypical chest pain with some chest wall tenderness Hypertension Diabetes mellitus type 2 Morbid obesity with BMI 56 Hyperlipidemia Obstructive sleep apnea with CPAP Plan: Continue current cardiac medications: Aspirin 81 mg daily, Lipitor 80 mg at bedtime, As needed Lasix discontinued Start Zofran 4 mg every 6 hours as needed for nausea Reschedule dobutamine stress echo for tomorrow Obtain 2-D echocardiogram and Doppler study to assess cardiac structure and function Further recommendations to follow based upon clinical course Nurse practitioner note has been reviewed, I agree with documented findings and plan of care. Patient was seen and examined. Objective - Vital Signs Vital signs: Vital Signs Temp 98.3 F 02/04/24 01:31 Pulse 64 02/04/24 01:31 Resp 16 02/04/24 01:31 BP 92/48 02/04/24 01:31 Pulse Ox 95 02/04/24 01:31 FiO2 Intake & Output 02/03/24 02/04/24 02/04/24 18:59 06:59 18:59 Intake Total 236 480 Balance 236 480 Intake: Oral 236 480 Other: Voiding Method Toilet # Voids 3 2 - Labs CBC & Chem 7: 02/04/24 05:04 02/04/24 05:04 Labs: Abnormal Lab Results - Last 24 Hours (Table) 02/03/24 02/03/24 02/04/24 Range/Units 05:18 20:53 05:04 Hgb 10.7 L (11.4-16.0) gm/dL Chloride (98-107) mmol/L Carbon Dioxide (22-30) mmol/L BUN (7-17) mg/dL Creatinine (0.52-1.04) mg/dL Glucose (74-99) mg/dL POC Glucose (mg/dL) 125 H (70-110) mg/dL HDL Cholesterol 34.60 L (40.00-60.00) mg/dL 02/04/24 Range/Units 05:04 Hgb (11.4-16.0) gm/dL Chloride 112 H (98-107) mmol/L Carbon Dioxide 18 L (22-30) mmol/L BUN 23 H (7-17) mg/dL Creatinine 1.20 H (0.52-1.04) mg/dL Glucose 104 H (74-99) mg/dL POC Glucose (mg/dL) (70-110) mg/dL HDL Cholesterol (40.00-60.00) mg/dL
[2024-02-04] MEDS: ONDANSETRON 4 MG/2 ML VIAL IVP PRN (10:11)
[2024-02-04 12:20] LABS: Glucose,Whole Blood 106 mg/dL (70-110)
[2024-02-04] MEDS: ASPIRIN 81 MG PO SCH (12:28)
[2024-02-04 17:25] LABS: Glucose,Whole Blood 102 mg/dL (70-110)
[2024-02-04 19:50] LABS: Glucose,Whole Blood 123 mg/dL (70-110)
--- NOTE | 2024-02-05 05:47 | P.PN ---
Subjective Progress Note Date: 02/04/24 This is a 68-year-old female who presented to the emergency department via EMS with chest pain. Patient was at her doctor's office, Dr. Parker undergoing diabetic exam and reports to having chest pain and shortness of breath when walking there. EKG was performed and patient was sent to the emergency department for further evaluation. Patient has significant past medical history of asthma, angina, diabetes mellitus, GERD, hyperlipidemia, sleep apnea, not using a CPAP, hypothyroid, anxiety/depression. Patient reports a pressure like sensation in the sternal area that radiated up to her shoulder and down her left arm. Patient was admitted for chest pain with cardiology consultation. Troponins have been negative and chest x-ray was done showing no acute process. 02/04/2024 Patient is seen in follow-up this morning with cardiology following. Apparently patient became nauseated and unable to perform the stress test and per cardiology will undergo stress testing on 02/05/2024. Patient is afebrile continues to report intermittent chest pain and overall generalized unwell feeling. Patient currently not reporting nausea and is tolerating diet. Patient will be n.p.o. at midnight and will attempt to repeat stress testing. Continue with anti-nausea medications as needed. Valsartan also has been discontinued for now. Review of systems: Constitutional: No reports of fatigue, fever, or chills Cardiovascular: reports of intermittent chest pain, denies palpitations Respiratory: reports of occasional shortness of breath with exertion GI: reports of nausea, no vomiting, or diarrhea : No reports of dysuria or retention Neurovascular: reports of generalized weakness All medications have been reviewed PHYSICAL EXAMINATION: GENERAL: The patient is alert and oriented x3, not in any acute distress. Well developed, elderly appearing, morbidly obese HEENT: Pupils are round and equally reacting to light. EOMI. No scleral icterus. No conjunctival pallor. Normocephalic, atraumatic. No pharyngeal erythema. No thyromegaly. CARDIOVASCULAR: S1 and S2 present. No murmurs, rubs, or gallops. PULMONARY: Chest is clear to auscultation, no wheezing or crackles. ABDOMEN: Soft, obese, nontender, nondistended, normoactive bowel sounds. No palpable organomegaly. MUSCULOSKELETAL: No joint swelling or deformity. EXTREMITIES: No cyanosis, clubbing, or pedal edema. NEUROLOGICAL: Gross neurological examination did not reveal any focal deficits. SKIN: No rashes. Assessment: Chest pain, ruled out ACS History of asthma, not in exacerbation Diabetes mellitus, type II, [id number] History of GERD Hyperlipidemia History of sleep apnea and does not use CPAP Hypothyroidism Morbid obesity with a BMI of 56.2 History of anxiety/depression GI prophylaxis DVT prophylaxis Full code Plan: Patient admitted for chest pain as she was at her doctor's office and experience shortness of breath with chest pressure and was sent here for further evaluation. Troponins have been negative and cardiology following who is Dr. 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 Patient was scheduled for stress testing this morning although became nauseated and per cardiology we will attempt stress testing again on 02/05/2024. Patient will be n.p.o. at night. Recommend holding valsartan as blood pressures have been low Continue antinausea medications as needed Follow-up on repeat labs and monitor kidney functions and electrolytes. Replace per protocol Encourage increase activity as tolerated Home medications reviewed and resumed as appropriate If stress testing is negative, consider discharge in the next 24 hours. The impression and plan of care has been dictated by Nora Barroso, Nurse Practitioner as directed. Dr. Fatmata MD I have performed a history and examination and MDM of this patient, discussed the same with the dictator, and agree with the dictator's assessment and plan as written ,documented as a scribe. Based on total visit time, I have performed more than 50% of the visit. Objective - Vital Signs Vital signs: Vital Signs Temp 98.3 F 02/04/24 01:31 Pulse 64 02/04/24 01:31 Resp 16 02/04/24 01:31 BP 92/48 02/04/24 01:31 Pulse Ox 95 02/04/24 01:31 FiO2 Intake & Output 02/03/24 02/03/24 02/04/24 06:59 18:59 06:59 Intake Total 236 480 Balance 236 480 Weight 130.635 kg Intake: Oral 236 480 Other: Voiding Method Toilet # Voids 1 3 2 - Labs CBC & Chem 7: 02/04/24 05:04 02/04/24 05:04 Labs: Abnormal Lab Results - Last 24 Hours (Table) 02/03/24 02/03/24 02/04/24 Range/Units 05:18 20:53 05:04 Hgb 10.7 L (11.4-16.0) gm/dL Chloride (98-107) mmol/L Carbon Dioxide (22-30) mmol/L BUN (7-17) mg/dL Creatinine (0.52-1.04) mg/dL Glucose (74-99) mg/dL POC Glucose (mg/dL) 125 H (70-110) mg/dL HDL Cholesterol 34.60 L (40.00-60.00) mg/dL 02/04/24 Range/Units 05:04 Hgb (11.4-16.0) gm/dL Chloride 112 H (98-107) mmol/L Carbon Dioxide 18 L (22-30) mmol/L BUN 23 H (7-17) mg/dL Creatinine 1.20 H (0.52-1.04) mg/dL Glucose 104 H (74-99) mg/dL POC Glucose (mg/dL) (70-110) mg/dL HDL Cholesterol (40.00-60.00) mg/dL
[2024-02-05 06:19] LABS: Glucose,Whole Blood 108 mg/dL (70-110)
[2024-02-05 07:20] LABS: African American GFR (CKD) 71 (>60 ml/min/1.73 sqM); Anion Gap 7 mmol/L; Blood Urea Nitrogen 15 mg/dL (7-17); Calcium 8.9 mg/dL (8.4-10.2); Carbon Dioxide 21 mmol/L (22-30); Chloride 113 mmol/L (98-107); Glucose 110 mg/dL (74-99); Non-African American GFR(CKD) 62 (>60 ml/min/1.73 sqM); Potassium 4.5 mmol/L (3.5-5.1); Sodium 141 mmol/L (137-145)
--- NOTE | 2024-02-05 10:51 | CA ---
Transthoracic Echo Report Name: Belinda Welch Age: 68 Gender: F : 1955 Exam Date: 02/05/2024 08:24 Exam Location: [facility] Ht (in): 60 Wt (lb): 288 Ordering Physician: Rakel Babcock Attending/Referring Phys: [id number], [place] Attorney Lakeisha Key RDCS Procedure CPT: Indications: LVF Cardiac Hx: Technical Quality: Fair Contrast 1: Total Dose (mL): Contrast 2: Total Dose (mL): MEASUREMENTS (Male / Female) Normal Values 2D ECHO LV Diastolic Diameter PLAX 5.6 cm 4.2 - 5.9 / 3.9 - 5.3 cm LV Systolic Diameter PLAX 3.4 cm IVS Diastolic Thickness 1.3 cm 0.6 - 1.0 / 0.6 - 0.9 cm LVPW Diastolic Thickness 1.1 cm 0.6 - 1.0 / 0.6 - 0.9 cm LV Relative Wall Thickness 0.4 RV Internal Dim ED PLAX 1.6 cm LA Systolic Diameter LX 4.3 cm 3.0 - 4.0 / 2.7 - 3.8 cm LV Diastolic Volume MOD BP 70.3 cm??? 67 - 155 / 56 - 104 cm??? LV Systolic Volume MOD BP 26.0 cm??? 22 - 58 / 19 - 49 cm??? LV Ejection Fraction MOD BP 63.0 % >= 55 % LV Cardiac Index MOD BP 1899.4 cm???/min???m??? LV Diastolic Volume MOD 4C 70.0 cm??? LV Systolic Volume MOD 4C 23.9 cm??? LV Ejection Fraction MOD 4C 65.9 % LV Cardiac Index MOD 4C 1983.1 cm???/min???m??? LV Diastolic Length 4C 7.1 cm LV Systolic Length 4C 5.5 cm LV Diastolic Volume MOD 2C 70.7 cm??? LV Systolic Volume MOD 2C 27.4 cm??? LV Ejection Fraction MOD 2C 61.2 % LV Cardiac Index MOD 2C 1858.0 cm???/min???m??? LV Diastolic Length 2C 7.0 cm LV Systolic Length 2C 5.7 cm LA Volume 65.8 cm??? 18 - 58 / 22 - 52 cm??? LA Volume Index 26.9 cm???/m??? 16 - 28 cm???/m??? M-MODE Aortic Root Diameter MM 3.2 cm LA Systolic Diameter MM 3.7 cm LA Ao Ratio MM 1.1 AV Cusp Separation MM 2.0 cm DOPPLER MV Area PHT 2.3 cm??? Mitral E Point Velocity 100.9 cm/s Mitral A Point Velocity 103.6 cm/s Mitral E to A Ratio 1.0 MV Deceleration Time 324.4 ms TR Peak Velocity 283.2 cm/s TR Peak Gradient 32.1 mmHg Right Atrial Pressure 8.0 mmHg Pulmonary Artery Systolic Pressu 40.1 mmHg Right Ventricular Systolic Press 40.1 mmHg FINDINGS Left Ventricle Left ventricular ejection fraction is estimated at 55-60 %. Moderately increased septal wall thickness. Mildly increased posterior wall thickness. Mildly increased left ventricular diastolic diameter. Normal left ventricular systolic function with no obvious regional wall motion abnormalities. Right Ventricle Normal right ventricular size and function. Mild pulmonary hypertension. Right Atrium Mild right atrial dilatation. Left Atrium Moderately increased left atrial diameter. Moderately increased left atrial volume. Mildly increased left atrial area. Mitral Valve Mitral valve not well visualized. Trace to mild mitral regurgitation. No mitral stenosis. Aortic Valve No aortic valve stenosis or regurgitation. Trileaflet aortic valve. Tricuspid Valve Structurally normal tricuspid valve. Mild tricuspid regurgitation. No tricuspid stenosis. Pulmonic Valve Structurally normal pulmonic valve. No pulmonic stenosis. Trace pulmonic regurgitation. Pericardium Echo free space anterior to the right ventricle likely represents a fat pad. Aorta Normal size aortic root and proximal ascending aorta. CONCLUSIONS Normal LV size and systolic function with concentric LVH. Mild mitral and tricuspid regurgitation. Mild pulmonary hypertension. Probable fat pad but no pericardial effusion Previewed by: Dr. Yael Reyes MD (Electronically Signed) Final Date: 05 February 2024 10:50
[2024-02-05] MEDS ORDERED: DOBUTamine DRIP for NUC MED 500 MG in DEXTROSE/WATER 1 250ML.BAG IV PRN (11:39)
--- NOTE | 2024-02-05 11:49 | P.PN ---
Subjective Progress Note Date: 02/05/24 This is a 68-year-old female with past medical history of obesity, hypertension, diabetes mellitus type 2, lower extremity edema, bronchial asthma. Patient follows in the office with Dr. ANTONIO Reyes. In January 2020, her cardiac catheterization revealed no significant obstructive disease with some proximal LAD calcification. Diabetes according to the patient is under decent control. Patient presented to the hospital with chest pain that was persistent, continuous and sharp in nature. It worsened when she took a deep breath. The pain has been going on for 3 days with some tenderness on the chest wall. Quality of the pain is atypical. There is significant amount of anxiety as well. Patient is grieving the loss of her brother who had coronary artery disease and another brother with CAD. She is quite anxious regarding her own heart condition but the quality of pain is atypical. Troponins came back normal. EKG did not show any acute changes. Patient was scheduled for dobutamine stress echocardiogram today but unfortunately, patient developed diarrhea 3 times this morning as well as some nausea and upset stomach. We are canceling the dobutamine stress echo and rescheduling for tomorrow and Zofran added. Blood pressure 131/80, heart rate 67, pulse ox 97% on room air. Repeat blood work reveals sodium 140, potassium 4.4, BUN 23 creatinine 1.2. Triglycerides 129, cholesterol 91, LDL 30, HDL 34. 02/05/24 Examined. Dobutamine stress echocardiogram scheduled for yesterday was p ostponed today because patient was having nausea and diarrhea. Patient apparently had 1 episode of diarrhea after she returned to her room. She denies any diarrhea this morning. She does have some nausea this morning. Patient has Zofran and Pepcid available. She is agreeable to try to do the stress test today. Echocardiogram reveals normal LV size and systolic function with concentric LVH. Mild mitral and tricuspid regurgitation. Mild pulmonary hypertension. Probable fat pad but no pericardial effusion. Physical examination: Gen: This is a 68-year-old female appears to be uncomfortable only because of nausea. VS: reviewed LUNGS: Bilateral air entry. No intercostal retractions. HEART: S1, S2 heard normally, somewhat distant only. No significant murmurs ABDOMEN: Soft No tenderness. EXTREMITIES: Diminished pulses, trace edema NEUROLOGICAL: Patient is awake, alert and oriented x3. Assessment: Atypical chest pain with some chest wall tenderness Hypertension Diabetes mellitus type 2 Morbid obesity with BMI 56 Hyperlipidemia Obstructive sleep apnea with CPAP Plan: Continue current cardiac medications: Aspirin 81 mg daily, Lipitor 80 mg at bedtime, Continue Zofran 4 mg every 6 hours as needed for nausea Complete dobutamine stress echo today If stress test is unremarkable, patient is cleared for discharge from cardiology and will follow-up in the office with Dr. ANTONIO Reyes in 1 to 2 weeks. Nurse practitioner note has been reviewed, I agree with documented findings and plan of care. Patient was seen and examined. Objective - Vital Signs Vital signs: Vital Signs Temp 98.7 F 02/05/24 07:00 Pulse 70 02/05/24 07:00 Resp 15 02/05/24 07:00 BP 119/62 02/05/24 07:00 Pulse Ox 99 02/05/24 07:00 FiO2 Intake & Output 02/04/24 02/05/24 02/05/24 18:59 06:59 18:59 Intake Total 118 560 0 Balance 118 560 0 Intake: Oral 118 560 0 Other: Voiding Method Toilet Toilet # Voids 3 1 - Labs CBC & Chem 7: 02/04/24 05:04 02/05/24 05:57 Labs: Abnormal Lab Results - Last 24 Hours (Table) 02/04/24 02/05/24 Range/Units 19:49 05:57 Chloride 113 H (98-107) mmol/L Carbon Dioxide 21 L (22-30) mmol/L Glucose 110 H (74-99) mg/dL POC Glucose (mg/dL) 123 H (70-110) mg/dL
[2024-02-05 12:46] LABS: Glucose,Whole Blood 93 mg/dL (70-110)
[2024-02-05 21:01] VITALS: BP 137/83; PULSE 70; RESP 18; TEMP 98
--- NOTE | 2024-02-06 09:59 | CA ---
Dobutamine Stress Echocardiogram Report Belinda Welch Age: 68 Gender: F : 1955 Exam Date: 02/05/2024 11:44 Exam Location: [facility] Ordering Physician: Rakel Babcock Referring Physician: [id number] Marie Senior Software Architect: Ramiro Allen Technologist: Ht (in): 60 Wt (lb): 288 Procedure CPT: Indication: Chest Pain ICD-9 Codes: Rhythm: Patient History: Cardiac Medications: SEE CHART Medications in past 24 hours: Contrast: N/A Total Dose (mL): NA Stress Results Protocol: Dobutamine Peak Dose (???g/kg/min): 30 Duration (min:sec): Atropine:(mg) None Target HR: 131 Double Product: [id number] Resting HR: 63 Resting BP: 137 / 74 Peak HR: 132 Peak BP: 179 / 49 Max Predicted HR: 154 86 % Max Predicted HR Stress Summary: BP Response: Reason for Termination: Target HR Cardiac Symptoms: NO SYMPTOMS ECG Analysis Resting EKG: Stress EKG: Arrhythmia: Echo Analysis Base Echo Analysis: Low Echo Anaylsis: Peak Echo Analysis: Recovery Echo: MEASUREMENTS (Male/Female) Normal Values CONCLUSIONS Baseline EKG revealed a normal sinus rhythm without significant ST-T changes. With dobutamine administration the heart rate went up to 132 bpm. There were no EKG changes. Patient did not have any angina. This is a unremarkable dobutamine stress test by EKG criteria Baseline echo images revealed normal wall motion wall thickening of all segments. With the dobutamine administration there was progressive increase in contractility of all segments suggesting that there is no evidence of ischemia with dobutamine stress Final impression: Normal dobutamine stress test by EKG criteria and no evidence of ischemia with the dobutamine stress. Dr. Yael Reyes MD (Electronically Signed) Final Date: 06 February 2024 09:58
--- NOTE | 2024-02-06 13:31 | P.DS ---
Providers Date of admission: 02/02/24 19:51 Expected date of discharge: 02/05/24 Attending physician: Nereyda Baker Consults: 02/02/24 19:49 Consult Physician Urgent Consulting Provider: Bahman Owusu Consult Reason/Comments: Chest pain, high risk Do you want consulting provider notified?: Yes, Notify in am Primary care physician: Jacki Parker Hospital Course: . Final diagnosis Chest pain, ruled out ACS, stress testing was negative History of asthma, not in exacerbation Diabetes mellitus, type II, [id number] History of GERD Hyperlipidemia History of sleep apnea and does not use CPAP Hypothyroidism Morbid obesity with a BMI of 56.2 History of anxiety/depression GI prophylaxis DVT prophylaxis Full code Discharge disposition Patient is being discharged in a stable condition with guarded prognosis to home. Patient will follow-up with Dr. Parker in the outpatient setting upon discharge. Patient is to continue with holding valsartan and outpatient follow- up with cardiology Dr. Reyes as scheduled. Total time taken is greater than 35 minutes. Hospital course This is a 68-year-old female who was recently admitted with chest pain, ruled out ACS. Patient with significant history with cardiology following recommending stress test. Patient initially was scheduled yesterday for stress testing although became nauseated and dizzy and had an episode of diarrhea and was canceled and underwent today which was negative for ischemia and has been cleared by cardiology for outpatient follow-up. Patient does follow with Dr. Reyes in the outpatient setting and has an appointment in the next 1 to 2 weeks. Please refer to cardiology notes for further HPI. Currently no reports of chest pain, shortness of breath, or palpitations. Patient is afebrile. No reports of nausea or vomiting and patient is tolerating diet. Patient will be discharged home today. Guarded prognosis and high risk for readmission. Physical exam: Gen: This is a 68-year-old female who is awake, alert and oriented x 3, well- developed, elderly appearing, morbidly obese HEENT: Head is atraumatic, normocephalic. Pupils equal, round. Sclerae is anicteric. NECK: Supple. No JVD. No lymphadenopathy. No thyromegaly. LUNGS: Diminished breath sounds bilaterally otherwise clear to auscultation. No wheezes or rhonchi. No intercostal retractions. HEART: Regular rate and rhythm. No murmur. ABDOMEN: Soft. Morbidly obese, bowel sounds are present. No masses. No tenderness. EXTREMITIES: No pedal edema. No calf tenderness. NEUROLOGICAL: Patient is awake, alert and oriented x3. Cranial nerves 2 through 12 are grossly intact. Please refer to medication reconciliation sheet for a list of medications. The impression and plan of care has been dictated by Nora Barroso, Nurse Practitioner as directed. Dr. Fatmata MD I have performed a history and examination and MDM of this patient, discussed the same with the dictator, and agree with the dictator's assessment and plan as written ,documented as a scribe. Based on total visit time, I have performed more than 50% of the visit. Patient Condition at Discharge: Stable Plan - Discharge Summary New Discharge Prescriptions: New Acetaminophen Tab [Tylenol] 650 mg PO Q4HR PRN tab PRN Reason: Mild Pain (Scale 1 To 3) Ondansetron [Zofran] 4 mg PO Q8HR PRN #20 tab PRN Reason: Nausea Continue Atorvastatin [Lipitor] 80 mg PO HS Albuterol Sulfate [Ventolin HFA] 2 puff INHALATION RT-Q4H PRN PRN Reason: Shortness Of Breath Aspirin 81 mg PO DAILY chew Furosemide [Lasix] 40 mg PO DAILY PRN PRN Reason: Edema Fluticasone Nasal [place] [Flonase Nasal Austin] 1 spray EA NOSTRIL DAILY PRN PRN Reason: Congestion busPIRone HCl [Buspar] 20 mg PO BID Venlafaxine HCl ER [Effexor XR] 150 mg PO DAILY metFORMIN HCL ER [Glucophage XR] 1,000 mg PO BID Levothyroxine Sodium [Synthroid] 112 mcg PO DAILY QUEtiapine [SEROquel] 100 mg PO HS Venlafaxine HCl [Effexor XR] 75 mg PO DAILY Famotidine [Pepcid] 40 mg PO DAILY PRN PRN Reason: acid reflux Discontinued Valsartan [Diovan] 40 mg PO DAILY Discharge Medication List Atorvastatin [Lipitor] 80 mg PO HS 01/22/18 [History] Albuterol Sulfate [Ventolin HFA] 2 puff INHALATION RT-Q4H PRN 10/10/19 [History] Aspirin 81 mg PO DAILY chew 10/15/19 [Rx] Furosemide [Lasix] 40 mg PO DAILY PRN 04/27/20 [History] metFORMIN HCL ER [Glucophage XR] 1,000 mg PO BID 09/16/22 [History] Fluticasone Nasal [place] [Flonase Nasal Austin] 1 spray EA NOSTRIL DAILY PRN 11/20/22 [History] Famotidine [Pepcid] 40 mg PO DAILY PRN 02/02/24 [History] Levothyroxine Sodium [Synthroid] 112 mcg PO DAILY 02/02/24 [History] QUEtiapine [SEROquel] 100 mg PO HS 02/02/24 [History] Venlafaxine HCl ER [Effexor XR] 150 mg PO DAILY 02/02/24 [History] Venlafaxine HCl [Effexor XR] 75 mg PO DAILY 02/02/24 [History] busPIRone HCl [Buspar] 20 mg PO BID 02/02/24 [History] Acetaminophen Tab [Tylenol] 650 mg PO Q4HR PRN tab 02/05/24 [Rx] Ondansetron [Zofran] 4 mg PO Q8HR PRN #20 tab 02/05/24 [Rx] Follow up Appointment(s)/Referral(s): Yael Reyes MD [STAFF PHYSICIAN] - 1 Week Jacki Parker DO [Primary Care Provider] - 1-2 days Patient Instructions/Handouts: Chest Pain (DC), Anxiety (GEN) Activity/Diet/Wound Care/Special Instructions: Activity limited until follow-up Follow-up with primary care provider on discharge Follow-up with cardiology in 1 to 2 weeks Continue holding valsartan for now until cardiology follow-up Continue heart healthy diabetic diet Discharge Disposition: HOME SELF-CARE
== END 2024-02-05 21:35 | disposition home or self-care (01) ==
LOC: EC 16:27 → 6NMEDSUR 19:51
PROVIDERS: ADMIT Hospitalist; ATTEND Hospitalist
DX: R07.89 Other chest pain (principal); E83.42 Hypomagnesemia; K21.9 Gastro-esophageal reflux disease without esophagitis; J45.909 Unspecified asthma, uncomplicated; E03.9 Hypothyroidism, unspecified; E11.9 Type 2 diabetes mellitus without complications; E66.01 Morbid (severe) obesity due to excess calories; E78.5 Hyperlipidemia, unspecified; F32.A Depression, unspecified; F41.0 Panic disorder [episodic paroxysmal anxiety]; G47.33 Obstructive sleep apnea (adult) (pediatric); I10 Essential (primary) hypertension; Z68.43 Body mass index [BMI] 50.0-59.9, adult; Z79.82 Long term (current) use of aspirin; Z79.84 Long term (current) use of oral hypoglycemic drugs; Z79.890 Hormone replacement therapy; Z79.899 Other long term (current) drug therapy; Z82.49 Family history of ischemic heart disease and other diseases of the circulatory system; Z63.4 Disappearance and death of family member; Z88.2 Allergy status to sulfonamides
CPT/HCPCS: 96376 ×3; 96372 ×4; 96375 ×3; 96365; 96366; 99285; 36415; 94640 ×4; 94760; 93005; 93306; 93351; 85379; 83880; 80061; 80053; 80048 ×2; 82150; 83690; 83735 ×2; 84484; 85025 ×2; 85610; 85730; 81003; 71046; G0378 ×4; J1250; J2270 ×4; J1644 ×3; J2405 ×3; J3475; J1885; J1171; J2470 ×2

== ENCOUNTER 2024-03-03 12:39 | Inpatient (IN) | payer MEDICARE, MEDICAID ==
--- NOTE | 2024-03-03 12:59 | ED ---
General Adult HPI - General Stated complaint: SI Time Seen by Provider: 03/03/24 12:41 - History of Present Illness Initial comments: Patient is a 68 y/o female PMH generalized anxiety disorder, depression, presenting today from [facility] for suicidal thoughts. Patient was they are seeing her therapist today due to worsening depressive symptoms and endorsed to [facility] worker that she has been thinking of killing herself by taking all of her pills. She states the symptoms have been coming and going over the last 2 weeks. She is also seeing family members. She does have history of prior suicide attempts. She did not try to harm herself or coming in today. She denies alcohol or illicit drug use. She denies additional symptoms including headaches, dizziness, chest pain, shortness of breath recent fevers.. - Related Data Home Medications Medication Instructions Recorded Confirmed Atorvastatin [Lipitor] 80 mg PO HS 01/22/18 03/03/24 Albuterol Sulfate [Ventolin HFA] 2 puff INHALATION RT-Q4H PRN 10/10/19 03/03/24 metFORMIN HCL ER [Glucophage XR] 1,000 mg PO BID 09/16/22 03/03/24 Fluticasone Nasal [place] [Flonase 1 spray EA NOSTRIL DAILY PRN 11/20/22 03/03/24 Nasal [place]] Famotidine [Pepcid] 40 mg PO DAILY PRN 02/02/24 03/03/24 QUEtiapine [SEROquel] 100 mg PO HS 02/02/24 03/03/24 Venlafaxine HCl ER [Effexor XR] 150 mg PO DAILY 02/02/24 03/03/24 Venlafaxine HCl [Effexor XR] 75 mg PO DAILY 02/02/24 03/03/24 busPIRone HCl [Buspar] 20 mg PO BID 02/02/24 03/03/24 Cholecalciferol [Vitamin D3 (125 125 mcg PO DAILY 03/03/24 03/03/24 Mcg = 5000 Iu)] Ferrous Sulfate [Feosol] 325 mg PO DAILY 03/03/24 03/03/24 Furosemide [Lasix] 20 mg PO DAILY PRN 03/03/24 03/03/24 Levothyroxine Sodium [Synthroid] 150 mcg PO DAILY 03/03/24 03/03/24 Multivitamins, Thera [Multivitamin 1 tab PO DAILY 03/03/24 03/03/24 (formulary)] Previous Rx's Medication Instructions Recorded Aspirin 81 mg PO DAILY chew 10/15/19 Acetaminophen Tab [Tylenol] 650 mg PO Q4HR PRN tab 02/05/24 Ondansetron [Zofran] 4 mg PO Q8HR PRN #20 tab 02/05/24 Allergies Allergy/AdvReac Type Severity Reaction Status Date / Time sulfamethoxazole Allergy Unknown Rash/Hives, Verified 03/03/24 16:46 [From Bactrim] SOB trimethoprim [From Bactrim] Allergy Unknown Rash/Hives, Verified 03/03/24 16:46 SOB Review of Systems ROS Statement: Those systems with pertinent positive or pertinent negative responses have been documented in the HPI. ROS Other: All systems not noted in ROS Statement are negative. 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 Past Anesthesia/Blood Transfusion Reactions: Family History of Problems w/ Anesthesia, Motion Sickness Additional Past Anesthesia/Blood Transfusion Reaction / Comment(s): clausterphobia. pt's sister had diff breathing from anesthesia Past Psychological History: Anxiety, Depression, Panic Disorder Smoking Status: Never smoker Past Alcohol Use History: None Reported Past Drug Use History: None Reported - Past Family History Son(s) Family Medical History: No Reported History Additional Family Medical History / Comment(s): She has 2 sons with no major medical problems. Patient does not have any daughters. Mother Family Medical History: Renal Disease Additional Family Medical History / Comment(s): Mother at age 80 from renal failure. Father Family Medical History: Coronary Artery Disease (CAD), CVA/TIA Additional Family Medical History / Comment(s): Father at age 67 with history of AR and stroke Brother(s) Family Medical History: Cancer, Coronary Artery Disease (CAD), Diabetes Mellitus, Hyperlipidemia, Hypertension Additional Family Medical History / Comment(s): She has total of 5 brothers and all had history of coronary artery disease and CABG, hypertension, hyperlipidemia, diabetes. Sister(s) Family Medical History: Cancer Additional Family Medical History / Comment(s): one sister of colon cancer, second sister had ovarian cancer General Exam - General Exam Comments Initial Comments: PE: CONSTITUTIONAL: No apparent distress, disheveled but otherwise well appearing SKIN: Warm, dry, no jaundice, hives or petechiae EYES: Pupils are equally round, extraocular movements intact without nystagmus, clear conjunctiva, non-icteric sclera HENT: Normocephalic, atraumatic, moist mucus membranes, oropharynx clear without exudates NECK: , Full range of motion, normal appearance, no thyromegaly or lymphadenopathy PULMONARY: Clear to auscultation without wheezes, rhonchi, or rales, normal ex cursion, no accessory muscle use and no stridor CARDIOVASCULAR: Regular rate, rhythm, normal S1 and S2. No appreciated murmurs, rubs or gallops. Extremities are well-perfused no lower extremity edema GASTROINTESTINAL: Soft, active bowel sounds throughout, non-tender, non- distended, no palpable masses, no rebound or guarding. No hepatosplenomegaly GENITOURINARY: MUSCULOSKELETAL: Extremities have no gross deformity, no edema, redness, or swelling. No calf swelling NEUROLOGIC:_a/o x 3, GCS 15, normal mentation and speech. Moves all extremities x 4 without motor or sensory deficit PSYCHIATRIC: Tearful and withdrawn mood and affect, thought process is clear and linear, endorses suicidal ideation, responding to internal stimuli Course Vital Signs 03/03/24 03/03/24 03/03/24 12:47 13:09 15:10 Temperature 98.6 F 98.6 F Pulse Rate 64 64 73 Respiratory 16 18 18 Rate Blood Pressure 113/76 113/76 120/70 O2 Sat by Pulse 96 96 96 Oximetry 03/03/24 16:29 Temperature Pulse Rate 74 Respiratory 18 Rate Blood Pressure 107/61 O2 Sat by Pulse 95 Oximetry Medical Decision Making - Medical Decision Making Was pt. sent in by a medical professional or institution (, [place], COMPENSATION MANAGER, urgent care, hospital, or senior care...) When possible be specific @Patient was sent in by [facility] Did you speak to anyone other than the patient for history (EMS, parent, family, police, friend...)? What history was obtained from this source @ -No Did you review nursing and triage notes (agree or disagree)? Why? @ -I reviewed nursing and triage notes Were old charts reviewed (outside hosp., previous admission, EMS record, old EKG, old radiological studies, urgent care reports/EKG's, senior care records)? Report findings @ -Medical records reviewed patient had dobutamine stress test performed on 02/05/2024, was noted to be normal stress test Differential Diagnosis (chest pain, altered mental status, abdominal pain women, abdominal pain men, vaginal bleeding, weakness, fever, dyspnea, syncope, headache, dizziness, GI bleed, back pain, seizure, CVA, palpatations, mental health, musculoskeletal)? @Differential Mental Health Depression, anxiety, bipolar, psychosis, schizophrenia, borderline personality, situational depression, adjustment disorder, behavioral disorder, brain tumor, malingering, substance abuse, encephalopathy, medication reaction, dementia, hypothyroidism.... This is not meant to be all-inclusive list EKG interpreted by me (3pts min.). @ -As above X-rays interpreted by me (1pt min.). @ -None done CT interpreted by me (1pt min.). @ -None done U/S interpreted by me (1pt. min.). @ -None done What testing was considered but not performed or refused? (CT, X-rays, U/S, labs)? Why? @ -None What meds were considered but not given or refused? Why? @ -None Did you discuss the management of the patient with other professionals (professionals i.e. [place] Dill, COMPENSATION MANAGER, lab, RT, psych nurse, stucco worker, rn appeals, teacher, electrical engineering drafting officer, watch case polisher)? Give summary @Yes, I did discuss patient's case with Shakeel, who emergency mental health services who kindly evaluated the patient Was smoking cessation discussed for >3mins.? @ -No Was critical care preformed (if so, how long)? @ -No Were there social determinants of health that impacted care today? How? (Homelessness, low income, unemployed, alcoholism, drug addiction, transportation, low edu. Level, literacy, decrease access to med. care, chcf, rehab)? @ -No Was there de-escalation of care discussed even if they declined (Discuss DNR or withdrawal of care, Hospice)? @ -No What co-morbidities impacted this encounter? (DM, HTN, Smoking, COPD, CAD, Cancer, CVA, ARF, Chemo, Hep., AIDS, mental health diagnosis, sleep apnea, morbid obesity)? @History depression, anxiety Was patient admitted / discharged? Hospital course, mention meds given and route, prescriptions, significant lab abnormalities, going to OR and other pertinent info. @ -Admit to psychiatric floor- Patient is a pleasant 68-year female history of generalized anxiety disorder, depression presenting today for suicidal thoughts and hallucinations. Has had history of similar. Did not harm attempt harm self prior to arrival. Sent in by [facility] for admission. CHERELLE 0. On my assessment patient is tearful, disheveled but otherwise well-appearing. Discussed plan for evaluation by [facility] and anticipated admission. Patient is agreeable with plan. Case discussed with KARLENE Beckford. Patient was evaluated by Shakeel. Patient was recommended for inpatient psychiatric hospitalization. Patient transferred to psychiatric unit. Undiagnosed new problem with uncertain prognosis? @ -No Drug Therapy requiring intensive monitoring for toxicity (Heparin, Nitro, Insulin, Cardizem)? @ -No Were any procedures done? @ -No Diagnosis/symptom? @Depression with suicidal ideation Acute, or Chronic, or Acute on Chronic? @Acute Uncomplicated (without systemic symptoms) or Complicated (systemic symptoms)? @ -Default Side effects of treatment? @ -No Exacerbation, Progression, or Severe Exacerbation? @ -No Poses a threat to life or bodily function? How? (Chest pain, USA, AR, pneumonia, PE, COPD, DKA, ARF, appy, cholecystitis, CVA, Diverticulitis, Homicidal, Suicidal, threat to staff... and all critical care pts) @Yes, if left untreated patient could harm or kill herself - Lab Data Result diagrams: 03/04/24 06:52 03/04/24 06:52 Lab Results 03/03/24 03/03/24 Range/Units 15:26 16:16 POC Glucose (mg/dL) 99 (70-110) mg/dL POC Glu Tongue Presser ID Irina Harper Influenza Type A (PCR) Not Detected (Not Detectd) Influenza Type B (PCR) Not Detected (Not Detectd) RSV (PCR) Not Detected (Not Detectd) SARS-CoV-2 (PCR) Not Detected (Not Detectd) Disposition Clinical Impression: Suicidal ideation Disposition: TRANSFER TO PSYCH HOSP/UNIT Condition: Stable
[2024-03-03 16:11] LABS: Influenza A Not Detected (Not Detectd); Influenza B Not Detected (Not Detectd); RSV Not Detected (Not Detectd)
[2024-03-03 16:18] LABS: Glucose,Whole Blood 99 mg/dL (70-110)
[2024-03-03] MEDS ORDERED: IBUPROFEN 600 MG TAB PO PRN (16:53)
[2024-03-03] MEDS ORDERED: ACETAMINOPHEN TAB 325 MG TAB PO PRN (16:53)
[2024-03-03] MEDS ORDERED: LORazepam 2 MG/ML INJ IM PRN (16:53)
[2024-03-03] MEDS ORDERED: MAGNESIUM HYDROXIDE 2,400 MG/30 ML CUP PO PRN (16:53)
[2024-03-03] MEDS ORDERED: FAMOTIDINE 20 MG TAB PO PRN (16:55)
[2024-03-03] MEDS ORDERED: FUROSEMIDE 20 MG TAB PO PRN (16:55)
[2024-03-03] MEDS ORDERED: FLUTICASONE NASAL 50MCG/SPRAY 16GM BTL EA NOSTRIL PRN (16:55)
[2024-03-03 17:57] LABS: Glucose,Whole Blood 165 mg/dL (70-110)
[2024-03-03] MEDS: INSULIN ASPART (NovoLOG) 100 UNIT/ML VIAL SQ SCH (18:02)
[2024-03-03 20:34] LABS: Glucose,Whole Blood 127 mg/dL (70-110)
[2024-03-03] MEDS: metFORMIN 500 MG TAB PO SCH (21:23)
[2024-03-03] MEDS: busPIRone HCl 10 MG TAB PO SCH (21:23)
[2024-03-03] MEDS: QUEtiapine 100 MG TAB PO SCH (21:23)
[2024-03-03] MEDS: ATORVASTATIN 80 MG TAB PO SCH (21:23)
[2024-03-04] MEDS: LEVOTHYROXINE 75 MCG TAB PO SCH (05:31)
[2024-03-04 07:12] VITALS: RESP 16
[2024-03-04 07:13] LABS: Basophils # (A) 0.1 k/uL (0-0.2); Basophils % (A) 1 %; Eosinophils # (A) 0.1 k/uL (0-0.7); Eosinophils % (A) 2 %; HCT 37.6 % (34.0-46.0); HGB 11.9 gm/dL (11.4-16.0); Lymphocytes # (A) 1.8 k/uL (1.0-4.8); Lymphocytes % (A) 29 %; MCHC 31.6 g/dL (31.0-37.0); MCV 82.5 fL (80.0-100.0); Monocytes # (A) 0.4 k/uL (0-1.0); Monocytes % (A) 7 %; Neutrophils # (A) 3.7 k/uL (1.3-7.7); Neutrophils % (A) 59 %; Platelet Count 256 k/uL (150-450); RBC 4.56 m/uL (3.80-5.40); RDW 13.7 % (11.5-15.5); WBC 6.3 k/uL (3.8-10.6)
[2024-03-04 07:40] LABS: ALT 16 U/L (4-34); AST 21 U/L (14-36); African American GFR (CKD) 63 (>60 ml/min/1.73 sqM); Albumin 3.6 g/dL (3.5-5.0); Alkaline Phosphatase 56 U/L (38-126); Anion Gap 9 mmol/L; Blood Urea Nitrogen 14 mg/dL (7-17); Calcium 9.1 mg/dL (8.4-10.2); Carbon Dioxide 25 mmol/L (22-30); Chloride 106 mmol/L (98-107); Glucose 113 mg/dL (74-99); Non-African American GFR(CKD) 55 (>60 ml/min/1.73 sqM); Potassium 3.9 mmol/L (3.5-5.1); Sodium 140 mmol/L (137-145); Total Bilirubin 0.4 mg/dL (0.2-1.3); Total Protein 5.7 g/dL (6.3-8.2)
[2024-03-04 08:07] LABS: Glucose,Whole Blood 118 mg/dL (70-110)
[2024-03-04] MEDS: ASPIRIN 81 MG PO SCH (08:09)
[2024-03-04] MEDS: VENLAFAXINE HCL ER 75 MG CAP PO SCH (08:09)
[2024-03-04] MEDS: MULTIVITAMINS, THERA 1 EACH TAB PO SCH (08:09)
[2024-03-04] MEDS: CHOLECALCIFEROL 125 MCG (5000 IU) TABLET PO SCH (08:10)
[2024-03-04] MEDS: FERROUS SULFATE 325 MG TAB PO SCH (08:10)
[2024-03-04] MEDS ORDERED: VENLAFAXINE HCL ER 150 MG CAP PO SCH (09:00)
--- NOTE | 2024-03-04 12:23 | P.HP ---
Psychiatric H&P - . H&P Date: 03/04/24 History & Physical: Allergies Allergy/AdvReac Type Severity Reaction Status Date / Time sulfamethoxazole Allergy Unknown Rash/Hives, Verified 03/03/24 16:46 From Bactrim SOB trimethoprim from Bactrim Allergy Unknown Rash/Hives, Verified 03/03/24 16:46 SOB Vital Signs Temp 97.2 F L 03/04/24 06:56 Pulse 69 03/04/24 06:56 Resp 16 03/04/24 06:56 BP 106/63 03/04/24 06:56 Pulse Ox 99 03/04/24 06:56 FiO2 Intake & Output 03/03/24 03/04/24 03/04/24 18:59 06:59 18:59 Weight 123 kg Laboratory Last Values WBC 6.3 k/uL (3.8-10.6) 03/04/24 06:52 RBC 4.56 m/uL (3.80-5.40) 03/04/24 06:52 Hgb 11.9 gm/dL (11.4-16.0) 03/04/24 06:52 Hct 37.6 % (34.0-46.0) 03/04/24 06:52 MCV 82.5 fL (80.0-100.0) 03/04/24 06:52 MCH 26.0 pg (25.0-35.0) 03/04/24 06:52 MCHC 31.6 g/dL (31.0-37.0) 03/04/24 06:52 RDW 13.7 % (11.5-15.5) 03/04/24 06:52 Plt Count 256 k/uL (150-450) 03/04/24 06:52 MPV 9.0 03/04/24 06:52 Neutrophils % 59 % 03/04/24 06:52 Lymphocytes % 29 % 03/04/24 06:52 Monocytes % 7 % 03/04/24 06:52 Eosinophils % 2 % 03/04/24 06:52 Basophils % 1 % 03/04/24 06:52 Neutrophils # 3.7 k/uL (1.3-7.7) 03/04/24 06:52 Lymphocytes # 1.8 k/uL (1.0-4.8) 03/04/24 06:52 Monocytes # 0.4 k/uL (0-1.0) 03/04/24 06:52 Eosinophils # 0.1 k/uL (0-0.7) 03/04/24 06:52 Basophils # 0.1 k/uL (0-0.2) 03/04/24 06:52 Sodium 140 mmol/L (137-145) 03/04/24 06:52 Potassium 3.9 mmol/L (3.5-5.1) 03/04/24 06:52 Chloride 106 mmol/L (98-107) 03/04/24 06:52 Carbon Dioxide 25 mmol/L (22-30) 03/04/24 06:52 Anion Gap 9 mmol/L 03/04/24 06:52 BUN 14 mg/dL (7-17) 03/04/24 06:52 Creatinine 1.06 mg/dL (0.52-1.04) H 03/04/24 06:52 Est GFR (CKD-EPI)AfAm 63 (>60 ml/min/1.73 sqM) 03/04/24 06:52 Est GFR (CKD-EPI)NonAf 55 (>60 ml/min/1.73 sqM) 03/04/24 06:52 Glucose 113 mg/dL (74-99) H 03/04/24 06:52 POC Glucose (mg/dL) 118 mg/dL (70-110) H 03/04/24 08:06 POC Glu Db2 Dba ID Cal Guardado 03/04/24 08:[address] Glu mg/dL 120 mg/dL 03/04/24 06:52 Hemoglobin A1c 5.8 % (<=6.0) 03/04/24 06:52 Calcium 9.1 mg/dL (8.4-10.2) 03/04/24 06:52 Total Bilirubin 0.4 mg/dL (0.2-1.3) 03/04/24 06:52 AST 21 U/L (14-36) 03/04/24 06:52 ALT 16 U/L (4-34) 03/04/24 06:52 Alkaline Phosphatase 56 U/L (38-126) 03/04/24 06:52 Total Protein 5.7 g/dL (6.3-8.2) L 03/04/24 06:52 Albumin 3.6 g/dL (3.5-5.0) 03/04/24 06:52 TSH 0.431 mIU/L (0.465-4.680) L 03/04/24 06:52 Influenza Type A (PCR) Not Detected (Not Detectd) 03/03/24 15:26 Influenza Type B (PCR) Not Detected (Not Detectd) 03/03/24 15:26 RSV (PCR) Not Detected (Not Detectd) 03/03/24 15:26 SARS-CoV-2 (PCR) Not Detected (Not Detectd) 03/03/24 15:26 03/04/24 12:15 IDENTIFYING DATA: Patient is a 68-year-old female, on disability and living at home with son CHIEF COMPLAINT: SI with a plan HPI: Patient presented to the hospital with suicidal thoughts. EPS note states, "Cl is A/O x4 brought to ER via EMS at the direction of [facility] (see below) due to SI w plan to OD on medications, increased depression, anxiety, tearful, overwhelmed, isolating, feels like a burden, loss of interest, low motivation, frustrated with increased state of depression over last 60 days. Cl has been admitted to [facility] previously and their presentation is a fixated thought process of similar symptoms. Cl reports aud/vis hallucinations of past relatives command in nature to end their life. Cl is tearful and frustrated. " I thought for a while I had been doing so good, I was getting out more with [facility] and enjoyng things like shopping and going out to eat. My peer support was helping me all the time by picking me up. Then it changed and now I am back to isolating and not returning calls. I am afraid all the time." Judgement,insight,impulse: poor ADLS: poor sleep/escobar:poor. Medical issues: diabetes,hypothyroidism,high cholesterol. Medications: Buspirone HCl 10MG TabletTake 2 tablet by mouth Twice a day QUEtiapine Fumarate 100MG Tablet Take 1 tablet by mouth At bedtime Venlafaxine HCl 150MG Tablet, Extended Release Take 1 tablet by mouth Daily every morning take with Venlafaxine ER 75mg every morning Venlafaxine HCl 75MG Tablet, Extended ReleaseTake 1 tablet by mouth Daily every morning take with Venlafaxine ER 150mg every morning . Hx of tx: [facility] [place]. Hx of in pat: 5+x's Last: 12/2022 Hx of RAYA: none reported. Fam Hx: none reported. Hx of trauma: none reported Hx of legal: pending divorce. Denies HI." Patient seen and evaluated on the unit and was agreeable with speaking to typewriters functional tester in office. She states she has been having suicidal ideations since Thanksgiving with no overt triggers. She states she has a plan to take a whole bottle of pills. She reports isolating at her house, poor sleep, poor appetite, hopelessness and anhedonia. She states feeling as though venlafaxine worsens her anxiety and that recently her PCP attempted to treat her insomnia by increasing her Seroquel however she was not able to tolerate this and so it was decreased back down to 100 by [facility]. He reports racing thoughts, feeling on edge and restlessness. She reports some seasonal components to her mood. She states she has been hearing voices of relatives. Patient denies any homicidal ideations intent or plan. Patient denies any flight of ideas racing thoughts and increased in goal directed behavior. Patient admits to using no substances. Patient's team at [facility] did note there to be a seasonal component to her depression but also talked about patient recently filing for divorce from her of 45 years in November. They mention patient has been staying in a house with no heat and that she has made comments about inability to leave her room due to cold environment there. PAST PSYCHIATRIC HISTORY: Patient has a history of MDD, DIANE, dependent personality disorder, borderline personality disorder. Patient is currently prescribed venlafaxine XR to 25 mg daily, BuSpar 20 mg twice daily, Seroquel 100 mg at bedtime. She has tried lithium before in the past however this was discontinued due to stage III CKD. Patient reports 3-4 previous inpatient hospitalizations, last in 2022. Patient follows with [facility]. She reports 3-4 previous suicide attempts. PMH: as per ER note ALLERGIES: as per EMR SUBSTANCE USE HISTORY: Denies FAMILY PSYCHIATRIC/SUBSTANCE USE HISTORY: Denies SOCIAL HISTORY: Patient is currently living with her son and is but is going through a divorce. She has 2 sons. She completed high school. She is unemployed but on disability. MENTAL STATUS EXAM: General Appearance: Patient appears to be stated age is alert, directable, and attempts to cooperate. Patient appears to have fair hygiene and grooming. Behavior: Patient is seated without any agitated behavior. She is intermittently tearful. She ambulates via wheelchair Speech: Patient's speech is fluent and nonpressured. Mood/Affect: Patient reports their mood is depressed, affect is congruent and constricted. Suicidality/Homicidality: Patient denies having any homicidal ideation intent or plan. He reports suicidal ideations with a plan to OD Perceptions: Patient denies any visual hallucinations however she reports auditory hallucinations described as hearing family members Though content/process: There is no evidence of any delusional thought content and thought process is linear. Memory and concentration: AOX3, grossly intact for the purposes of this session. Can spell "WORLD" backwards Judgment and insight: Fair STRENGTHS/WEAKNESSES: strength is that patient is resilient and has family support. Weakness is that patient has poor judgment and is impulsive INTELLECT: Average IMPRESSIONS: Major depressive disorder, recurrent, severe without psychotic features Generalized anxiety disorder Dependent personality disorder Borderline personality disorder PLAN: -Patient is admitted under voluntary status to MHU for stabilization of psychiatric symptoms and safety. Patient has signed adult voluntary form and medication consent and is placed in patient's chart. -Medications : Decrease venlafaxine XR to 150 mg daily tomorrow for depression/anxiety and start Remeron 7.5 mg at bedtime for sleep/mood/anxiety/appetite, continue Seroquel 100 mg at bedtime for insomnia, BuSpar 20 mg twice daily for anxiety -Ativan and Haldol PRN for agitation/aggression -Patient was informed of the risks, benefits and side effects of the medication and patient verbally consented to taking the medications. Patient signed med consent form and was placed in chart. -Internal Medicine consult to perform medical evaluation and physical. -NRT -not needed as patient does not smoke -SW on board for discharge planning. Encourage patient to participate in groups to work on coping skills.
[2024-03-04 12:35] LABS: Glucose,Whole Blood 105 mg/dL (70-110)
[2024-03-04 12:51] LABS: T4, Free (Free Thyroxine) 1.54 ng/dL (0.78-2.19)
--- NOTE | 2024-03-04 14:46 | P.MDCNMH ---
History of Present Illness H&P Date: 03/04/24 This is a pleasant 68-year-old female who presented to the emergency department after expressing suicidal thoughts and ideation while at an appointment at [facility]. Patient follows with Dr. Parker in the outpatient setting with a past medical history of asthma, diabetes mellitus, GERD, hyperlipidemia, sleep apnea, hypothyroidism. Patient reports she does not drink or smoke and denies any illicit drug use. Patient reports she has been having decreased appetite increased sleeping and no motivation and has been having worsening depression symptoms over the last few weeks. Patient was voluntarily admitted to [facility] for psychiatric evaluation and treatment. Labs reviewed and CBC within normal li mits, BMP showed a sodium of 140 with a potassium of 3.9, BUN 14 and creatinine 1.06, hemoglobin A1c is 5.8 TSH was a little low at 0.431 and free T4 was obtained and normal. Home medications reviewed and resumed as appropriate. On exam patient is extremely tearful and appears depressed. Patient reports she does not want to she just feels overwhelmed with life with increasing depression. REVIEW OF SYSTEMS: CONSTITUTIONAL: No fever, no malaise, reports of fatigue. HEENT: No recent visual problems or hearing problems. Denied any sore throat. CARDIOVASCULAR: No chest pain, orthopnea, PND, no palpitations, no syncope. PULMONARY: No shortness of breath, no cough, no hemoptysis. GASTROINTESTINAL: No diarrhea, no nausea, no vomiting, no abdominal pain. NEUROLOGICAL: No headaches, no weakness, no numbness. HEMATOLOGICAL: Denies any bleeding or petechiae. GENITOURINARY: Denies any burning micturition, frequency, or urgency. MUSCULOSKELETAL/RHEUMATOLOGICAL: Denies any joint pain, swelling, or any muscle pain. ENDOCRINE: Denies any polyuria or polydipsia. The rest of the 14-point review of systems is negative. PHYSICAL EXAMINATION: GENERAL: The patient is alert and oriented x3, tearful on exam. Well developed, elderly appearing, morbidly obese HEENT: Pupils are round and equally reacting to light. EOMI. No scleral icterus. No conjunctival pallor. Normocephalic, atraumatic. No pharyngeal erythema. No thyromegaly. CARDIOVASCULAR: S1 and S2 muffled PULMONARY: Diminished breath sounds bilaterally otherwise chest is clear to auscultation, no wheezing or crackles. ABDOMEN: Soft, obese, nontender, nondistended, normoactive bowel sounds. No palpable organomegaly. MUSCULOSKELETAL: No joint swelling or deformity. EXTREMITIES: No cyanosis, clubbing, or pedal edema. Lower extremity chronic edema noted NEUROLOGICAL: Gross neurological examination did not reveal any focal deficits. Diffusely weak SKIN: No rashes. Assessment: Depression with suicidal thoughts History of asthma, not in exacerbation Angina history Diabetes mellitus, type II, diet and oral diabetics, hemoglobin A1c is 5.8 Hypothyroidism Panic attacks with increased anxiety History of anxiety History of obstructive sleep apnea, does not use CPAP Morbid obesity with a BMI of 48.0 Plan: Patient was voluntarily admitted to [facility] after an appointment with her counselor at [facility] reporting suicidal thoughts and brought to the ER. Home medications reviewed and resumed as appropriate Labs reviewed and TSH was low T3 was done and within normal limits Continue monitoring Accu-Cheks before meals and at bedtime and use sliding scale Encourage the patient to attend group therapy sessions and compliance with medications and psychiatry evaluation Thank you kindly for this consultation. Patient has been instructed to follow- up with Dr. Parker in the outpatient setting on discharge. The impression and plan of care has been dictated by Nora Barorso, Nurse Practitioner as directed. Dr. Fatmata MD I have performed a history and examination and MDM of this patient, discussed the same with the dictator, and agree with the dictator's assessment and plan as written ,documented as a scribe. Based on total visit time, I have performed more than 50% of the visit. 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 Past Anesthesia/Blood Transfusion Reactions: Family History of Problems w/ Anesthesia, Motion Sickness Additional Past Anesthesia/Blood Transfusion Reaction / Comment(s): clausterphobia. pt's sister had diff breathing from anesthesia Past Psychological History: Anxiety, Depression, Panic Disorder Additional Psychological History / Comment(s): borderline personality disorder Smoking Status: Never smoker Past Alcohol Use History: None Reported Past Drug Use History: None Reported - Past Family History Son(s) Family Medical History: No Reported History Additional Family Medical History / Comment(s): She has 2 sons with no major medical problems. Patient does not have any daughters. Mother Family Medical History: Renal Disease Additional Family Medical History / Comment(s): Mother at age 80 from renal failure. Father Family Medical History: Coronary Artery Disease (CAD), CVA/TIA Additional Family Medical History / Comment(s): Father at age 67 with history of VA and stroke Brother(s) Family Medical History: Cancer, Coronary Artery Disease (CAD), Diabetes Melli tus, Hyperlipidemia, Hypertension Additional Family Medical History / Comment(s): She has total of 5 brothers and all had history of coronary artery disease and CABG, hypertension, hyperlipidemia, diabetes. Sister(s) Family Medical History: Cancer Additional Family Medical History / Comment(s): one sister of colon cancer, second sister had ovarian cancer Medications and Allergies Home Medications Medication Instructions Recorded Confirmed Type Atorvastatin [Lipitor] 80 mg PO HS 01/22/18 03/03/24 History Albuterol Sulfate [Ventolin HFA] 2 puff INHALATION RT-Q4H PRN 10/10/19 03/03/24 History Aspirin 81 mg PO DAILY chew 10/15/19 03/03/24 Rx metFORMIN HCL ER [Glucophage XR] 1,000 mg PO BID 09/16/22 03/03/24 History Fluticasone Nasal [place] [Flonase 1 spray EA NOSTRIL DAILY PRN 11/20/22 03/03/24 History Nasal [place]] Famotidine [Pepcid] 40 mg PO DAILY PRN 02/02/24 03/03/24 History QUEtiapine [SEROquel] 100 mg PO HS 02/02/24 03/03/24 History Venlafaxine HCl ER [Effexor XR] 150 mg PO DAILY 02/02/24 03/03/24 History Venlafaxine HCl [Effexor XR] 75 mg PO DAILY 02/02/24 03/03/24 History busPIRone HCl [Buspar] 20 mg PO BID 02/02/24 03/03/24 History Acetaminophen Tab [Tylenol] 650 mg PO Q4HR PRN tab 02/05/24 03/03/24 Rx Ondansetron [Zofran] 4 mg PO Q8HR PRN #20 tab 02/05/24 03/03/24 Rx Cholecalciferol [Vitamin D3 (125 125 mcg PO DAILY 03/03/24 03/03/24 History Mcg = 5000 Iu)] Ferrous Sulfate [Feosol] 325 mg PO DAILY 03/03/24 03/03/24 History Furosemide [Lasix] 20 mg PO DAILY PRN 03/03/24 03/03/24 History Levothyroxine Sodium [Synthroid] 150 mcg PO DAILY 03/03/24 03/03/24 History Multivitamins, Thera [Multivitamin 1 tab PO DAILY 03/03/24 03/03/24 History (formulary)] Allergies Allergy/AdvReac Type Severity Reaction Status Date / Time sulfamethoxazole Allergy Unknown Rash/Hives, Verified 03/03/24 16:46 [From Bactrim] SOB trimethoprim [From Bactrim] Allergy Unknown Rash/Hives, Verified 03/03/24 16:46 SOB Physical Exam Vitals: Vital Signs Temp Pulse Pulse Resp BP BP Pulse Ox 03/04/24 06:56 97.2 F L 69 16 106/63 99 03/03/24 17:46 98.2 F 91 17 124/72 96 03/03/24 16:29 74 18 107/61 95 03/03/24 15:10 73 18 120/70 96 03/03/24 13:09 98.6 F 64 18 113/76 96 03/03/24 12:47 98.6 F 64 16 113/76 96 Intake and Output 03/03/24 03/04/24 03/04/24 22:59 06:59 14:59 Other: Weight 123 kg Cranial Nerve Examination - Cranial Nerves Cranial Nerve I- Olfactory: Intact Cranial Nerve II- Optic: Intact Cranial Nerve III- Oculomotor: Intact Cranial Nerve IV- Trochlear: Intact Cranial Nerve V- Trigeminal: Intact Cranial Nerve - Abducens: Intact Cranial Nerve VII- Facial: Intact Cranial Nerve VIII- Auditory: Intact Cranial Nerve IX- Glossopharyngeal: Intact Cranial Nerve X- Vagus: Intact Cranial Nerve XI- Accessory: Intact Cranial Nerve XII- Hypoglossal: Intact Results CBC & Chem 7: 03/04/24 06:52 03/04/24 06:52 Labs: Abnormal Lab Results - Last 24 Hours (Table) 03/03/24 03/03/24 03/04/24 Range/Units 17:55 20:32 06:52 Creatinine 1.06 H (0.52-1.04) mg/dL Glucose 113 H (74-99) mg/dL POC Glucose (mg/dL) 165 H 127 H (70-110) mg/dL Total Protein 5.7 L (6.3-8.2) g/dL TSH 0.431 L (0.465-4.680) mIU/L 03/04/24 Range/Units 08:06 Creatinine (0.52-1.04) mg/dL Glucose (74-99) mg/dL POC Glucose (mg/dL) 118 H (70-110) mg/dL Total Protein (6.3-8.2) g/dL TSH (0.465-4.680) mIU/L
[2024-03-04 17:34] LABS: Glucose,Whole Blood 104 mg/dL (70-110)
[2024-03-04 20:07] LABS: Glucose,Whole Blood 112 mg/dL (70-110)
[2024-03-04] MEDS: ONDANSETRON ODT 4 MG TAB PO PRN (20:48)
[2024-03-04] MEDS: MAG HYDROX/AL HYDROX/SIMETH 355 ML BOTTLE PO PRN (20:49)
[2024-03-04] MEDS: PROCHLORPERAZINE 5 MG TAB PO PRN (22:59)
[2024-03-04] MEDS: LORazepam 1 MG TAB PO PRN (22:59)
[2024-03-04] MEDS: MIRTAZAPINE 15 MG TAB PO SCH (23:28)
[2024-03-05 07:47] LABS: Glucose,Whole Blood 115 mg/dL (70-110)
[2024-03-05] MEDS: VENLAFAXINE HCL ER 150 MG CAP PO SCH (08:49)
--- NOTE | 2024-03-05 11:35 | P.PN ---
Progress Note - Text Progress Note Date: 03/05/24 Interval History: Patient was seen in her room and was directable and agreeable to speak with wr iter in the room. She states having an eventful day yesterday, reporting nausea, loose stools and dizziness. She states receiving several as needed medications including Zofran, Compazine and Ativan and found them somewhat helpful. She reports racing thoughts today but states she has been utilizing coping skills. She reports a decrease in urination and requests a urinalysis. She states been unable to attend to her ADLs as she requires a shower chair. She states difficulties ambulating given her dizziness and she feels like high anxiety is contributing to this. Reports poor sleep overnight due to the listed symptoms and states having an accident in bed due to the loose stools. She does report an improvement in her suicidal ideations. At this time patient denies any homicidal ideations, intent or plan. Patient denies any auditory, visual hallucinations and denies any paranoia or delusions. Patient has been compliant with meds. Mental Status Exam: General Appearance: Patient appears to be stated age is alert, directable, and cooperative. Behavior: Patient is calmly laying without any agitated behavior. Speech: Patient's speech is fluent and nonpressured. Mood/Affect: Mood is "anxious", affect is congruent and flat. Suicidality/Homicidality: Patient denies having any homicidal ideation intent or plan. He reports suicidal ideations however lessening in intensity Perceptions: Patient denies any visual hallucinations and denies any auditory hallucinations Though content/process: There is no evidence of any delusional thought content and thought process is linear and logical. Memory and concentration: AOX3, grossly intact for the purposes of this session Judgment and insight: Improving mildly Assessment Major depressive disorder, recurrent, severe without psychotic features Generalized anxiety disorder Dependent personality disorder Borderline personality disorder Plan: -Patient continues to meet criteria for inpatient psychiatric admission for symptom stabilization and safety. Patient has signed adult voluntary form and medication consent and was placed in patient's chart. -Medications: Increase BuSpar to 20 mg 3 times daily for anxiety, continue venla faxine XR 150 mg daily for depression/anxiety, Seroquel 100 mg at bedtime for insomnia, Remeron 7.5 mg at bedtime for sleep/mood/anxiety/appetite -When necessary Ativan and Haldol for agitation/aggression. -Labs: Reviewed -SW on board for discharge planning. Encouraged the patient to participate in milieu. Anticipate discharge mid next week pending stabilization in suicidal ideations
[2024-03-05 11:38] LABS: Appearance,Urine Cloudy (Clear); Bacteria,Urine Rare /hpf; Bilirubin,Urine Negative (Negative); Blood,Urine Negative (Negative); Cellular Casts,Urine 1 /lpf (0); Color,Urine Yellow; Glucose,Urine (UA) Negative (Negative); Hyaline Casts,Urine 5 /lpf (0-2); Ketones,Urine Negative (Negative); Leukocyte Esterase,Urine Trace (Negative); Mucus,Urine Occasional /hpf; Nitrite,Urine Negative (Negative); Protein,Urine 1+ (Negative); RBC,Urine <1 /hpf (0-5); Specific Gravity,Urine 1.017 (1.001-1.035); Squamous Epithelial Cell,Urine 3 /hpf (0-4); Urobilinogen,Urine <2.0 mg/dL (<2.0); WBC,Urine 4 /hpf (0-5)
[2024-03-05 12:59] LABS: Glucose,Whole Blood 82 mg/dL (70-110)
[2024-03-05] MEDS: busPIRone HCl 10 MG TAB PO SCH (16:12)
[2024-03-05 16:50] LABS: Urine Alcohol Negative (Negative); Urine Barbiturate Negative (Negative); Urine Cocaine Negative (Negative); Urine Methadone Negative (Negative); Urine Opiates Negative (Negative); Urine Phencyclidine Negative (Negative)
[2024-03-05 17:51] LABS: Glucose,Whole Blood 128 mg/dL (70-110)
[2024-03-05 20:08] LABS: Glucose,Whole Blood 141 mg/dL (70-110)
[2024-03-05] MEDS: NYSTATIN 100,000 UNIT/GM OINT 30 GM TUBE TOPICAL PRN (21:47)
[2024-03-06 07:53] LABS: Glucose,Whole Blood 108 mg/dL (70-110)
[2024-03-06] MEDS ORDERED: NYSTATIN 100,000 UNIT/GM POWD 15 GM TOPICAL PRN (08:59)
[2024-03-06 12:38] LABS: Glucose,Whole Blood 117 mg/dL (70-110)
--- NOTE | 2024-03-06 15:46 | P.PN ---
Progress Note - Text Progress Note Date: 03/06/24 Dictation was produced using [employer] dictation software. Please excuse any grammatical, word or spelling errors. Interval history: Patient was seen in her room and was directable and agreeable to speak with the press writer for psychiatric follow-up. The pt states that she is feeling " sad and a little anxious" today, reported that her son came to visit her and she feels sad that he saw her here. She states that depression and anxiety are at the moderate side, she rated both at 7 per 10. She denied any current suicidal or homicidal thoughts or behavior, intention or plan. She reported that she slept better last night and reported that her appetite is improving, reported that diarrhea and nausea has been improving. She reported that she heard her brother and sister talking to her last night and reported she saw them when she closed her eyes, she was educated on the process of anxiety and that can happen when anxiety and depression are high. She reported that she has been compliant with her medication, denied any current side effects. Did that she has been trying to go out of her room and talk to other people in the unit. She was able to speak in details about what led to her current hospitalization and her relationship with her . Mental status exam: General Appearance: Patient appears to be stated age is alert, directable, and cooperative. Behavior: Patient is calmly laying in bed without any agitated behavior. Speech: Patient's speech is fluent and nonpressured. Mood/Affect: Mood is "sad, anxious", affect is congruent and flat. Suicidality/Homicidality: Patient denies having any homicidal ideation intent or plan. She denied any suicidal ideations, intention or plan Perceptions: Patient denies any visual hallucinations and however reported auditory hallucinations of hearing her brother and sister last night Though content/process: There is no evidence of any delusional thought content and thought process is linear and logical. Memory and concentration: AOX3, grossly intact for the purposes of this session Judgment and insight: Improving mildly Assessment Major depressive disorder, recurrent, severe without psychotic features Generalized anxiety disorder Dependent personality disorder Borderline personality disorder Assessment/Plan: Continue with current diagnosis. Patient continues to meet criteria for inpatient psychiatric admission for symptom stabilization and safety. Patient will be maintained on current psychotropic medication regimen. Monitor for medication compliance and for any psychotropic medication side effects. Will continue to monitor ongoing response to treatment. Encouraged participation in milieu.
[2024-03-06 17:09] LABS: Glucose,Whole Blood 109 mg/dL (70-110)
[2024-03-06 20:06] LABS: Glucose,Whole Blood 111 mg/dL (70-110)
[2024-03-07 12:51] LABS: Glucose,Whole Blood 113 mg/dL (70-110)
--- NOTE | 2024-03-07 14:01 | P.PN ---
Progress Note - Text Progress Note Date: 03/07/24 Dictation was produced using [employer] dictation software. Please excuse any grammatical, word or spelling errors. Interval history: Patient was seen in the hallway and was directable and agreeable to speak with the freelance writer in her room for psychiatric follow-up. The pt states that she is feeling well today, she states that she still has moderate depression and anxiety which she rated both at 8 per 10. She denied any current suicidal, self-harm or homicidal thoughts or behavior, denied any auditory or visual hallucination. He reported that all of her symptoms are related to what happened with her , reported that her children are very supportive and they have been in contact with her. She reported that she has been taking her medication, she denied any current side effects. Reported that diarrhea has been improving and she was able to eat some salad for lunch. She reported that her appetite is coming back. She admitted to good sleep last night, it is reported as 5 hours. She reported that she is getting along well with everyone in the unit and reported that other peers has been helping her. Mental status exam: General Appearance: Patient appears to be stated age is alert, directable, and cooperative. Behavior: Patient is calmly laying in bed without any agitated behavior. Speech: Patient's speech is fluent and nonpressured. Mood/Affect: Mood is "fine", affect is congruent and flat. Suicidality/Homicidality: Patient denies having any homicidal ideation intent or plan. She denied any suicidal ideations, intention or plan Perceptions: Patient denies any visual hallucinations or auditory hallucinations Though content/process: There is no evidence of any delusional thought content and thought process is linear and logical. Memory and concentration: AOX3, grossly intact for the purposes of this session Judgment and insight: Improving mildly Assessment Major depressive disorder, recurrent, severe without psychotic features Generalized anxiety disorder Dependent personality disorder Borderline personality disorder Assessment/Plan: Continue with current diagnosis. Patient continues to meet criteria for inpatient psychiatric admission for symptom stabilization and safety. Patient will be maintained on current psychotropic medication regimen. Monitor for medication compliance and for any psychotropic medication side effects. Will continue to monitor ongoing response to treatment. Encouraged participation in milieu.
[2024-03-07 17:43] LABS: Glucose,Whole Blood 103 mg/dL (70-110)
[2024-03-07 20:39] LABS: Glucose,Whole Blood 109 mg/dL (70-110)
[2024-03-08 07:52] LABS: Glucose,Whole Blood 109 mg/dL (70-110)
--- NOTE | 2024-03-08 12:07 | P.PN ---
Progress Note - Text Progress Note Date: 03/08/24 Interval History: Patient was seen in bed and was directable and agreeable to speak with technical proposal writer in the room. She reports feeling "sad" today. Patient was reminded of behavior activation was encouraged to attend at least 1 group today patient was agreeable with this goal. He reports having a dream overnight with her mother and when she woke up she saw her mother sitting in her wheelchair which was scary for her. She reports sleeping on and off. She reports an increase in appetite with starting mirtazapine. She denies any nausea or vomiting or loose stools today however reports constipation was encouraged to use MiraLAX as needed. She continues to report high depression and anxiety, rating both an 8 out of 10 today. She reports on and off suicidal ideations however denies any homicidal ideations. Patient denies any auditory, visual hallucinations and denies any paranoia or delusions. Patient denies any side effects from the medications and has been compliant with meds. Mental Status Exam: General Appearance: Patient appears to be stated age is alert, directable, and cooperative. Behavior: Patient is calmly seated without any agitated behavior. She is laying in bed Speech: Patient's speech is fluent and nonpressured. Mood/Affect: Mood is "sad", affect is congruent and blunted. Suicidality/Homicidality: Patient denies having any homicidal ideation intent or plan. She reports suicidal ideations, coming and going Perceptions: Patient denies any visual hallucinations and denies any auditory hallucinations Though content/process: There is no evidence of any delusional thought content and thought process is linear and logical. Memory and concentration: AOX3, grossly intact for the purposes of this session Judgment and insight: Improving mildly Assessment Major depressive disorder, recurrent, severe without psychotic features Generalized anxiety disorder Dependent personality disorder Borderline personality disorder Plan: -Patient continues to meet criteria for inpatient psychiatric admission for symptom stabilization and safety. Patient has signed adult voluntary form and medication consent and was placed in patient's chart. -Medications: Increase Remeron to 15 mg at bedtime for depression/anxiety, continue BuSpar 20 mg 3 times daily for anxiety, Effexor XR 150 mg daily for depression/anxiety, Seroquel 100 mg at bedtime for insomnia -When necessary Ativan and Haldol for agitation/aggression. -Labs: Reviewed -SW on board for discharge planning. Encouraged the patient to participate in milieu. Anticipate discharge back home with son on
[2024-03-08 12:50] LABS: Glucose,Whole Blood 90 mg/dL (70-110)
[2024-03-08 17:53] LABS: Glucose,Whole Blood 91 mg/dL (70-110)
[2024-03-08 21:12] LABS: Glucose,Whole Blood 114 mg/dL (70-110)
[2024-03-08] MEDS: MIRTAZAPINE 15 MG TAB PO SCH (21:14)
[2024-03-09 07:08] VITALS: TEMP 97.7
[2024-03-09 07:56] LABS: Glucose,Whole Blood 104 mg/dL (70-110)
[2024-03-09 09:12] LABS: Glucose,Whole Blood 99 mg/dL (70-110)
--- NOTE | 2024-03-09 12:14 | P.PN ---
Progress Note - Text Progress Note Date: 03/09/24 Interval History: Patient was seen wandering the hallways and was directable and agreeable to sp edin with script writer in the office. She states feeling "drugged" today described as feeling numb, tired, short of breath, and lightheaded. She states her mom came to her and her dreams again last night and although she was encouraging she has this fear of as her mom is . She reports suicidal ideations however states she has been challenging them. Patient opened up a lot about her past related to her of 45 years, stating recently following for divorce as he has another family in [place] that she was unaware of. She was able to complete her goal of going to groups. She states speaking to her sons and that they are supportive. She reports sleep difficulties described as difficulty falling asleep. At this time patient denies any suicidal or homicidal ideations, intent or plan. Patient denies any auditory, visual hallucinations and denies any paranoia or delusions. Patient denies any side effects from the medications and has been compliant with meds. Mental Status Exam: General Appearance: Patient appears to be stated age is alert, directable, and cooperative. Behavior: Patient is calmly seated without any agitated behavior. She is intermittently tearful Speech: Patient's speech is fluent and nonpressured. Mood/Affect: Mood is "sad", affect is congruent and flat. Suicidality/Homicidality: Patient denies having any homicidal ideation intent or plan. She reports suicidal ideations, less intense than previous counters Perceptions: Patient denies any visual hallucinations and denies any auditory hallucinations Though content/process: There is no evidence of delusional thoughts and thought process is circumstantial Memory and concentration: AOX3, grossly intact for the purposes of this session Judgment and insight: Improving mildly Assessment Major depressive disorder, recurrent, severe without psychotic features Generalized anxiety disorder Dependent personality disorder Borderline personality disorder Plan: -Patient continues to meet criteria for inpatient psychiatric admission for symptom stabilization and safety. Patient has signed adult voluntary form and medication consent and was placed in patient's chart. -Medications: Start melatonin 5 mg at bedtime for insomnia and continue Remeron 15 mg at bedtime for depression/anxiety, BuSpar 20 mg 3 times daily for anxiety, Effexor XR 150 mg daily for depression/anxiety, Seroquel 100 mg at bedtime for insomnia -When necessary Ativan and Haldol for agitation/aggression. -Labs: Reviewed -SW on board for discharge planning. Encouraged the patient to participate in milieu. Anticipate discharge back home with sons on
[2024-03-09 12:51] LABS: Glucose,Whole Blood 110 mg/dL (70-110)
[2024-03-09 17:42] LABS: Glucose,Whole Blood 83 mg/dL (70-110)
[2024-03-09 20:02] LABS: Glucose,Whole Blood 103 mg/dL (70-110)
[2024-03-09] MEDS: MELATONIN 5 MG TABLET PO SCH (21:08)
[2024-03-10 08:08] LABS: Glucose,Whole Blood 106 mg/dL (70-110)
--- NOTE | 2024-03-10 11:50 | P.PN ---
Progress Note - Text Progress Note Date: 03/10/24 Interval History: Patient was seen in bed and was directable and agreeable to speak with ad writer in the room. She reports feeling "anxious" and she feels this is due to BuSpar, stating feeling sweaty and shaky after taking this medication. She reports racing thoughts however has been using coping skills for this and was encouraged to write these thoughts down in a journal. Patient reports feeling guilty and shameful related to her son's growing up without a father. She reports strong support network with her sons and states they do not blame her. She does state she has been sleeping better overnight. She has been tending to her ADLs and going to groups. At this time patient denies any suicidal or homicidal ideations, intent or plan. Patient denies any auditory, visual hallucinations and denies any paranoia or delusions. Patient has been compliant with meds. Mental Status Exam: General Appearance: Patient appears to be stated age is alert, directable, and cooperative. Behavior: Patient is calmly seated without any agitated behavior. She has less tearful today Speech: Patient's speech is fluent and nonpressured. Mood/Affect: Mood is "anxious", affect is congruent and flat. Suicidality/Homicidality: Patient denies having any suicidal or homicidal ideation intent or plan. Perceptions: Patient denies any visual hallucinations and denies any auditory hallucinations Though content/process: There is no evidence of any delusional thought content and thought process is linear and logical Memory and concentration: AOX3, grossly intact for the purposes of this session Judgment and insight: Improving mildly Assessment Major depressive disorder, recurrent, severe without psychotic features Generalized anxiety disorder Dependent personality disorder Borderline personality disorder Plan: -Patient continues to meet criteria for inpatient psychiatric admission for s ymptom stabilization and safety. Patient has signed adult voluntary form and medication consent and was placed in patient's chart. -Medications: Decrease BuSpar to 20 mg twice daily for anxiety due to adverse effects, continue melatonin 5 mg at bedtime for insomnia, Remeron 15 mg at bedtime for depression/anxiety, Effexor XR 150 mg daily for depression/anxiety, Seroquel 100 mg at bedtime for insomnia -When necessary Ativan and Haldol for agitation/aggression. -Labs: Reviewed -SW on board for discharge planning. Encouraged the patient to participate in milieu. Anticipate discharge back home with sons tomorrow
[2024-03-10 12:25] LABS: Glucose,Whole Blood 68 mg/dL (70-110)
[2024-03-10 12:45] LABS: Glucose,Whole Blood 86 mg/dL (70-110)
[2024-03-10 17:44] LABS: Glucose,Whole Blood 122 mg/dL (70-110)
[2024-03-10 20:18] LABS: Glucose,Whole Blood 109 mg/dL (70-110)
[2024-03-10] MEDS: busPIRone HCl 10 MG TAB PO SCH (21:11)
[2024-03-11 06:58] VITALS: BP 114/66; PULSE 71
[2024-03-11 07:51] LABS: Glucose,Whole Blood 104 mg/dL (70-110)
[2024-03-11 11:41] LABS: Glucose,Whole Blood 116 mg/dL (70-110)
--- NOTE | 2024-03-11 12:23 | P.DS ---
Providers Date of admission: 03/03/24 16:50 Expected date of discharge: 03/11/24 Attending physician: Haylee Horne MD Consults: 03/03/24 16:53 Consult Physician [facility]ine [facility] Reason/Comments: H&P Do you want consulting provider notified?: Yes Primary care physician: Jacki Freeman - Discharge Diagnosis(es) (1) Major depressive disorder, recurrent severe without psychotic features Current Visit: Yes Status: Acute Priority: High (2) Dependent personality disorder Current Visit: Yes Status: Acute Priority: High (3) Borderline personality disorder Current Visit: Yes Status: Acute Priority: High (4) Generalized anxiety disorder Current Visit: Yes Status: Acute Priority: Medium Hospital Course: Admission HPI: Admission note was completed by insurance writer "Patient presented to the hospital with suicidal thoughts. EPS note states, "Cl is A/O x4 brought to ER via EMS at the direction of [facility] (see below) due to SI w plan to OD on medications, increased depression, anxiety, tearful, overwhelmed, isolating, feels like a burden, loss of interest, low motivation, frustrated with increased state of depression over last 60 days. Cl has been admitted to [facility] previously and their presentation is a fixated thought process of similar symptoms. Cl reports aud/vis hallucinations of past relatives command in nature to end their life. Cl is tearful and frustrated. " I thought for a while I had been doing so good, I was getting out more with [facility] and enjoyng things like shopping and going out to eat. My peer support was helping me all the time by picking me up. Then it changed and now I am back to isolating and not returning calls. I am afraid all the time." Judgement,insight,impulse: poor ADLS: poor sleep/escobar:poor. Medical issues: di abetes,hypothyroidism,high cholesterol. Medications: Buspirone HCl 10MG TabletTake 2 tablet by mouth Twice a day QUEtiapine Fumarate 100MG Tablet Take 1 tablet by mouth At bedtime Venlafaxine HCl 150MG Tablet, Extended Release Take 1 tablet by mouth Daily every morning take with Venlafaxine ER 75mg every morning Venlafaxine HCl 75MG Tablet, Extended ReleaseTake 1 tablet by mouth Daily every morning take with Venlafaxine ER 150mg every morning . Hx of tx: [facility] [place]. Hx of in pat: 5+x's Last: 12/2022 Hx of RAYA: none reported. Fam Hx: none reported. Hx of trauma: none reported Hx of legal: pending divorce. Denies HI." Patient seen and evaluated on the unit and was agreeable with speaking to insurance writer in office. She states she has been having suicidal ideations since [place] with no overt triggers. She states she has a plan to take a whole bottle of pills. She reports isolating at her house, poor sleep, poor appetite, hopelessness and anhedonia. She states feeling as though venlafaxine worsens her anxiety and that recently her PCP attempted to treat her insomnia by increasing her Seroquel however she was not able to tolerate this and so it was decreased back down to 100 by [facility]. He reports racing thoughts, feeling on edge and restlessness. She reports some seasonal components to her mood. She states she has been hearing voices of relatives. Patient denies any homicidal ideations intent or plan. Patient denies any flight of ideas racing thoughts and increased in goal directed behavior. Patient admits to using no substances. Patient's team at [facility] did note there to be a seasonal component to her depression but also talked about patient recently filing for divorce from her of 45 years in November. They mention patient has been staying in a house with no heat and that she has made comments about inability to leave her room due to cold environment there." Hospital course: Upon admission to the unit patient was directable and agreeable to commence treatment and signed adult voluntary form.. Patient got along well with other patients on the unit and followed unit protocol. She was largely isolative to room however with encouragement would attend groups and attend to ADLs. Patient was compliant with the medications and denied any side effects throughout hospital course. Patient was started on Remeron and this was increased to 15 mg at bedtime for depression/anxiety, Effexor XR was decreased to 150 mg daily for depression/anxiety, BuSpar continued at 20 mg twice daily for anxiety, melatonin 5 mg at bedtime for insomnia, Seroquel continued at 100 mg at bedtime for insomnia. Patient spoke of her stressors and engaged in therapy both group and individual. Patient was also seen by medical team for history and physical exam. Throughout the course of the hospitalization patient gradually improved with regards to mood, anxiety, sleep and returned back to their baseline level of functioning. On the day of discharge patient denied any homicidal ideations intent or plan denied any auditory or visual hallucinations. She reported chronic, intermittent suicidal ideations, no plan or intent. The patient denied any access to guns or weapons. Patient denied any paranoia and did not endorse any delusions. Patient does not have a significant history of substance abuse and was counseled on abstaining from all substances including alcohol and marijuana. Patient was also counseled on the medications and need for regular compliance and was encouraged to follow-up with their outpatient appointment for mental health and also for primary care. Prior to discharge a family meeting will be arranged by social director to answer any questions and ensure safety upon discharge incuding making sure that guns/weapons are either removed from the home or locked away. Patient to be discharged back home with sons with close [facility] follow-up, appointment scheduled for tomorrow. Mental status exam: General Appearance: Patient appears to be stated age is alert, pleasant, and cooperative. Patient is in no acute distress and has improved hygiene and grooming Behavior: Patient is calmly seated without any agitated behavior. Speech: Patient's speech is fluent and nonpressured. Mood/Affect: Patient reports their mood is "anxious", affect is congruent and blunted Suicidality/Homicidality: Patient denies having any homicidal ideation intent or plan. Reports chronic, intermittent suicidal ideations, no plan or intent Perceptions: Patient denies any auditory or visual hallucinations. Though content/process: There is no evidence of any delusional thought content and thought process is linear and logical. Memory and concentration: AOX3, grossly intact for the purposes of this session. Can spell "WORLD" backwards correctly. Judgment and insight: Chronically poor, however has improved with guarded prognosis Impression: Major depressive disorder, recurrent, severe without psychotic features Generalized anxiety disorder Dependent personality disorder Borderline personality disorder Plan: -Continue with discharge today as patient has improved and stabilized psychiatrically and is not currently an imminent threat to themself and/or others. -Continue medications: Remeron 15 mg at bedtime, BuSpar 20 mg twice daily, melatonin 5 mg at bedtime, Effexor XR 150 mg daily, Seroquel 100 mg at bedtime -Patient was counseled on the need for medication compliance and appropriate follow-up at mental health and also primary care for medical issues. Patient verbalized understanding and agreed. -Social work to help coordinate patients discharge today arrange for and conduct family meeting to ensure safety upon discharge and answer any questions/concerns. also to ensure safe home environment that guns/weapons are either removed from the home or locked away. Social work also to arrange for patients follow up appointments with [facility] for psychiatric care along with follow up with primary care provider. -Patient counseled on abstaining from recreational drugs and marijuana and alcohol. Was informed/educated on the adverse effects on their physical and mental health. Patient verbally agreed and understood. -Patient was instructed to return to the hospital or seek immediate medical care if their psychiatric or medical symptoms do worsen or reoccur. Abnormal Labs 03/03/24 03/03/24 03/04/24 17:55 20:32 06:52 Creatinine 1.06 H Glucose 113 H POC Glucose (mg/dL) 165 H 127 H Total Protein 5.7 L TSH 0.431 L Urine Appearance Urine Protein Ur Leukocyte Esterase Urine Bacteria Hyaline Casts Urine Mucus U Benzodiazepines Scrn 03/04/24 03/04/24 03/05/24 08:06 20:06 07:45 Creatinine Glucose POC Glucose (mg/dL) 118 H 112 H 115 H Total Protein TSH Urine Appearance Urine Protein Ur Leukocyte Esterase Urine Bacteria Hyaline Casts Urine Mucus U Benzodiazepines Scrn 03/05/24 03/05/24 03/05/24 11:15 11:15 17:49 Creatinine Glucose POC Glucose (mg/dL) 128 H Total Protein TSH Urine Appearance Cloudy H Urine Protein 1+ H Ur Leukocyte Esterase Trace H Urine Bacteria Rare H Hyaline Casts 5 H Urine Mucus Occasional H U Benzodiazepines Scrn Positive A 03/05/24 03/06/24 03/06/24 20:07 12:36 20:05 Creatinine Glucose POC Glucose (mg/dL) 141 H 117 H 111 H Total Protein TSH Urine Appearance Urine Protein Ur Leukocyte Esterase Urine Bacteria Hyaline Casts Urine Mucus U Benzodiazepines Scrn 03/07/24 03/08/24 03/10/24 12:49 21:11 12:24 Creatinine Glucose POC Glucose (mg/dL) 113 H 114 H 68 L Total Protein TSH Urine Appearance Urine Protein Ur Leukocyte Esterase Urine Bacteria Hyaline Casts Urine Mucus U Benzodiazepines Scrn 03/10/24 03/11/24 17:43 11:36 Creatinine Glucose POC Glucose (mg/dL) 122 H 116 H Total Protein TSH Urine Appearance Urine Protein Ur Leukocyte Esterase Urine Bacteria Hyaline Casts Urine Mucus U Benzodiazepines Scrn Vital Signs Temp 97.7 F 03/09/24 06:25 Pulse 71 03/11/24 06:57 Resp 16 03/09/24 06:25 BP 114/66 03/11/24 06:57 Pulse Ox 97 03/09/24 06:25 FiO2 Allergies Allergy/AdvReac Type Severity Reaction Status Date / Time sulfamethoxazole Allergy Unknown Rash/Hives, Verified 03/03/24 16:46 [From Bactrim] SOB trimethoprim [From Bactrim] Allergy Unknown Rash/Hives, Verified 03/03/24 16:46 SOB Plan - Discharge Summary Discharge Rx Participant: No New Discharge Prescriptions: New busPIRone HCl [Buspar] 20 mg PO BID tab INSULIN ASPART (NovoLOG) [NovoLOG (formulary)] 0 unit SQ ACHS each Mirtazapine [Remeron] 15 mg PO HS 30 Days #30 tab Venlafaxine HCl ER [Effexor XR] 150 mg PO DAILY 30 Days #30 cap Melatonin 5 mg PO HS 30 Days #30 tab Continue busPIRone HCl [Buspar] 20 mg PO BID 30 Days #120 tab Ferrous Sulfate [Iron (65 MG Elemental)] 325 mg PO DAILY 30 Days #30 tab Multivitamins, Thera [Multivitamin (formulary)] 1 tab PO DAILY 30 Days #30 tab QUEtiapine [SEROquel] 100 mg PO HS 30 Days #30 tab Cholecalciferol [Vitamin D3 (125 Mcg = 5000 Iu)] 125 mcg PO DAILY 30 Days #30 tab Aspirin 81 mg PO DAILY 30 Days #30 tab metFORMIN HCL ER [Glucophage XR] 1,000 mg PO BID 30 Days #120 tab Atorvastatin [Lipitor] 80 mg PO HS 30 Days #30 tab Levothyroxine Sodium [Synthroid] 150 mcg PO DAILY 30 Days #30 tab Discontinued Albuterol Sulfate [Ventolin HFA] 2 puff INHALATION RT-Q4H PRN PRN Reason: Shortness Of Breath Fluticasone Nasal [place] [Flonase Nasal [place]] 1 spray EA NOSTRIL DAILY PRN PRN Reason: Congestion Venlafaxine HCl ER [Effexor XR] 150 mg PO DAILY Acetaminophen Tab [Tylenol] 650 mg PO Q4HR PRN tab PRN Reason: Mild Pain (Scale 1 To 3) Ondansetron [Zofran] 4 mg PO Q8HR PRN #20 tab PRN Reason: Nausea Furosemide [Lasix] 20 mg PO DAILY PRN PRN Reason: Edema Venlafaxine HCl [Effexor XR] 75 mg PO DAILY Famotidine [Pepcid] 40 mg PO DAILY PRN PRN Reason: acid reflux Discharge Medication List Aspirin 81 mg PO DAILY 30 Days #30 tab 03/11/24 [Rx] Atorvastatin [Lipitor] 80 mg PO HS 30 Days #30 tab 03/11/24 [Rx] Cholecalciferol [Vitamin D3 (125 Mcg = 5000 Iu)] 125 mcg PO DAILY 30 Days #30 tab 03/11/24 [Rx] Ferrous Sulfate [Iron (65 MG Elemental)] 325 mg PO DAILY 30 Days #30 tab 03/11/24 [Rx] INSULIN ASPART (NovoLOG) [NovoLOG (formulary)] 0 unit SQ ACHS each 03/11/24 [Rx] Levothyroxine Sodium [Synthroid] 150 mcg PO DAILY 30 Days #30 tab 03/11/24 [Rx] Melatonin 5 mg PO HS 30 Days #30 tab 03/11/24 [Rx] Mirtazapine [Remeron] 15 mg PO HS 30 Days #30 tab 03/11/24 [Rx] Multivitamins, Thera [Multivitamin (formulary)] 1 tab PO DAILY 30 Days #30 tab 03/11/24 [Rx] QUEtiapine [SEROquel] 100 mg PO HS 30 Days #30 tab 03/11/24 [Rx] Venlafaxine HCl ER [Effexor XR] 150 mg PO DAILY 30 Days #30 cap 03/11/24 [Rx] busPIRone HCl [Buspar] 20 mg PO BID tab 03/11/24 [Rx] busPIRone HCl [Buspar] 20 mg PO BID 30 Days #120 tab 03/11/24 [Rx] metFORMIN HCL ER [Glucophage XR] 1,000 mg PO BID 30 Days #120 tab 03/11/24 [Rx] Follow up Appointment(s)/Referral(s): [facility] [place] [Outside] - 03/12/24 11:00 am (03/12 at 11am with Shadia Go 03/17 at 2pm with Carey Corral NP) Jacki Freeman DO [Primary Care Provider] - 1-2 days Patient Instructions/Handouts: Depression (DC), Borderline Personality Disorder (GEN) Activity/Diet/Wound Care/Special Instructions: [facility] Discharge Info Avoid the use of street drugs and alcohol. Take all medications as prescribed. When you are in need of refills on your medications, please contact your outpatient medical provider and/or outpatient psychiatrist. Please go to your scheduled outpatient appointments for aftercare treatment. If symptoms return or become worse, call the crisis line at or and/or visit the nearest emergency room for assistance. National Suicide and Crisis Lifeline - call or text 477. Discharge Disposition: HOME SELF-CARE
[2024-03-11 12:41] LABS: Glucose,Whole Blood 142 mg/dL (70-110)
[2024-03-11] MEDS: ALBUTEROL INHALER 60 PUFF/8 GM INHALER (MHU) INHALATION PRN (16:08)
[2024-03-11 17:36] LABS: Glucose,Whole Blood 99 mg/dL (70-110)
[2024-03-11 20:12] LABS: Glucose,Whole Blood 115 mg/dL (70-110)
== END 2024-03-11 21:33 | disposition home or self-care (01) | DRG 885 ==
LOC: EC 12:39 → 3MHU 16:50
PROVIDERS: ADMIT Psychiatry & Neurology Psychiatry; ATTEND Psychiatry & Neurology Psychiatry
DX: F33.2 Major depressive disorder, recurrent severe without psychotic features (principal); R45.851 Suicidal ideations; Z68.42 Body mass index [BMI] 45.0-49.9, adult; E66.01 Morbid (severe) obesity due to excess calories; E11.22 Type 2 diabetes mellitus with diabetic chronic kidney disease; N18.30 Chronic kidney disease, stage 3 unspecified; F60.7 Dependent personality disorder; F60.3 Borderline personality disorder; F41.1 Generalized anxiety disorder; J45.909 Unspecified asthma, uncomplicated; E03.9 Hypothyroidism, unspecified; E78.00 Pure hypercholesterolemia, unspecified; G51.0 Bell's palsy; G47.33 Obstructive sleep apnea (adult) (pediatric); G47.00 Insomnia, unspecified; K21.9 Gastro-esophageal reflux disease without esophagitis; R11.0 Nausea; R19.7 Diarrhea, unspecified; R42 Dizziness and giddiness; K59.00 Constipation, unspecified; Z79.82 Long term (current) use of aspirin; Z79.84 Long term (current) use of oral hypoglycemic drugs; Z79.890 Hormone replacement therapy; Z79.899 Other long term (current) drug therapy; Z91.51 Personal history of suicidal behavior; Z63.5 Disruption of family by separation and divorce; Z88.1 Allergy status to other antibiotic agents; Z88.2 Allergy status to sulfonamides; F41.0 Panic disorder [episodic paroxysmal anxiety]
CPT/HCPCS: 36415; 80053; 80306; 81001; 82075; 83036; 84439; 84443; 84481; 85025; 87636; 99285

== ENCOUNTER 2024-07-28 13:44 | Observation (INO) | payer MEDICARE, OTHER ==
--- NOTE | 2024-07-28 13:57 | ED ---
General Adult HPI - General Chief complaint: Shortness of Breath Stated complaint: Weakness Time Seen by Provider: 07/28/24 13:57 Source: patient, RN notes reviewed, old records reviewed Mode of arrival: EMS Limitations: no limitations - History of Present Illness Initial comments: 68-year-old female presented the ER for evaluation of weakness. Patient reports she was at her appointment [facility] [place] and started complaining of shortness of breath with chest tightness. They subsequently sent patient to the emergency department for further evaluation. Patient reports for the past couple of weeks she has been having intermittent weakness along with shortness of breath and chest discomfort. She admits to a history of sleep apnea. Patient states her weakness makes it difficult for her to ambulate at home. She typically ambulates with a cane and lives with her sons. She states "not feeling well". She also was endorsing headache and bilateral lower extremity weakness and numbness. She has not taken anything for her symptoms at this time. She denies any known fevers or chills. No other complaints. - Related Data Home Medications Medication Instructions Recorded Confirmed Albuterol Sulfate [Albuterol 2 puff PO RT-Q6H PRN 07/28/24 07/28/24 Sulfate Hfa] Fluticasone Nasal [place] [Flonase 2 spray EA NOSTRIL DAILY PRN 07/28/24 07/28/24 Nasal [place]] Levothyroxine Sodium [Synthroid] 125 mcg PO DAILY 07/28/24 07/28/24 Mirtazapine [Remeron] 7.5 mg PO HS 07/28/24 07/28/24 Previous Rx's Medication Instructions Recorded Aspirin 81 mg PO DAILY 30 Days #30 tab 03/11/24 Atorvastatin [Lipitor] 80 mg PO HS 30 Days #30 tab 03/11/24 Cholecalciferol [Vitamin D3 (125 125 mcg PO DAILY 30 Days #30 tab 03/11/24 Mcg = 5000 Iu)] Ferrous Sulfate [Iron (65 MG 325 mg PO DAILY 30 Days #30 tab 03/11/24 Elemental)] QUEtiapine [SEROquel] 100 mg PO HS 30 Days #30 tab 03/11/24 busPIRone HCl [Buspar] 20 mg PO BID 30 Days #120 tab 03/11/24 metFORMIN HCL ER [Glucophage XR] 1,000 mg PO BID 30 Days #120 tab 03/11/24 Allergies Allergy/AdvReac Type Severity Reaction Status Date / Time sulfamethoxazole Allergy Unknown Rash/Hives, Verified 07/28/24 17:00 [From Bactrim] SOB trimethoprim [From Bactrim] Allergy Unknown Rash/Hives, Verified 07/28/24 17:00 SOB Review of Systems ROS Statement: Those systems with pertinent positive or pertinent negative responses have been documented in the HPI. ROS Other: All systems not noted in ROS Statement are negative. 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 Past Anesthesia/Blood Transfusion Reactions: Family History of Problems w/ Anesthesia, Motion Sickness Additional Past Anesthesia/Blood Transfusion Reaction / Comment(s): cla usterphobia. pt's sister had diff breathing from anesthesia Past Psychological History: Anxiety, Depression, Panic Disorder Smoking Status: Never smoker Past Alcohol Use History: None Reported Past Drug Use History: None Reported - Past Family History Son(s) Family Medical History: No Reported History Additional Family Medical History / Comment(s): She has 2 sons with no major medical problems. Patient does not have any daughters. Mother Family Medical History: Renal Disease Additional Family Medical History / Comment(s): Mother at age 80 from renal failure. Father Family Medical History: Coronary Artery Disease (CAD), CVA/TIA Additional Family Medical History / Comment(s): Father at age 67 with history of LA and stroke Brother(s) Family Medical History: Cancer, Coronary Artery Disease (CAD), Diabetes Mellitus, Hyperlipidemia, Hypertension Additional Family Medical History / Comment(s): She has total of 5 brothers and all had history of coronary artery disease and CABG, hypertension, hyperlipidemia, diabetes. Sister(s) Family Medical History: Cancer Additional Family Medical History / Comment(s): one sister of colon cancer, second sister had ovarian cancer General Exam Limitations: no limitations General appearance: alert, in no apparent distress Respiratory exam: Present: normal lung sounds bilaterally. Absent: respiratory distress, wheezes, rales, rhonchi, stridor Cardiovascular Exam: Present: regular rate, normal rhythm, normal heart sounds. Absent: systolic murmur, diastolic murmur, rubs, gallop, clicks GI/Abdominal exam: Present: soft, normal bowel sounds. Absent: distended, tenderness, guarding, rebound, rigid Extremities exam: Present: normal inspection, full ROM, normal capillary refill. Absent: tenderness, pedal edema, joint swelling, calf tenderness Neurological exam: Present: alert, oriented X3, CN II-XII intact Skin exam: Present: warm, dry, intact, normal color. Absent: rash Course Vital Signs 07/28/24 07/28/24 13:46 17:41 Temperature 97.9 F Pulse Rate 74 79 Respiratory 20 16 Rate Blood Pressure 122/65 116/67 O2 Sat by Pulse 96 97 Oximetry - Reevaluation(s) Reevaluation #1: 07/28/24 17:02 Case discussed with KARLENE Ramirez for admission EKG Findings - EKG Comments: EKG Findings:: EKG taken at 13: 54 showing a sinus rhythm. No ST segment elevations or depressions. No T wave inversions. Ventricular rate 71, TN interval 159, QRS duration 99, QT/QTc 395/417. Medical Decision Making - Medical Decision Making Was pt. sent in by a medical professional or institution (, PA, PRODUCT CONTROL AND LOGISTICS ANALYST, urgent care, hospital, or senior care...) When possible be specific @ -Patient sent by [facility] for evaluation of exertional dyspnea and chest discomfort. Did you speak to anyone other than the patient for history (EMS, parent, family, police, friend...)? What history was obtained from this source @ -No Did you review nursing and triage notes (agree or disagree)? Why? @ -I reviewed and agree with nursing and triage notes Were old charts reviewed (outside hosp., previous admission, EMS record, old EKG, old radiological studies, urgent care reports/EKG's, senior care records)? Report findings @ -Dobutamine stress test completed on 02-05-2024 which was negative. No evidence of ischemia with dobutamine stress on echocardiogram. Normal dobutamine stress test by EKG criteria and no evidence of ischemia with dobutamine stress. Differential Diagnosis (chest pain, altered mental status, abdominal pain women, abdominal pain men, vaginal bleeding, weakness, fever, dyspnea, syncope, headache, dizziness, GI bleed, back pain, seizure, CVA, palpatations, mental health, musculoskeletal)? @ -Differential Weakness:Hypoglycemia, shock, sepsis, hyponatremia, anemia, infection, LA, ETOH, adverse medicine reaction, overdose, stroke, this is not meant to be an all-inclusive list. EKG interpreted by me (3pts min.). @ -As above X-rays interpreted by me (1pt min.). @ -[CXR interpreted by me negative for focal consolidations, pneumothorax or pleural effusions. CT interpreted by me (1pt min.). @ -None done U/S interpreted by me (1pt. min.). @ -None done What testing was considered but not performed or refused? (CT, X-rays, U/S, labs)? Why? @ -None What meds were considered but not given or refused? Why? @ -None Did you discuss the management of the patient with other professionals (professionals i.e. , PA, PRODUCT CONTROL AND LOGISTICS ANALYST, lab, RT, psych nurse, older adult social work specialist, route driver coin machines, teacher, morals squad police officer, director case management)? Give summary @ -Yes, case discussed with KARLENE Ramirez, who accepts admission. Was smoking cessation discussed for >3mins.? @ -No Was critical care preformed (if so, how long)? @ -No Were there social determinants of health that impacted care today? How? ( Homelessness, low income, unemployed, alcoholism, drug addiction, transportation, low edu. Level, literacy, decrease access to med. care, fci, rehab)? @ -No Was there de-escalation of care discussed even if they declined (Discuss DNR or withdrawal of care, Hospice)? DNR status @ -No What co-morbidities impacted this encounter? (DM, HTN, Smoking, COPD, CAD, Cancer, CVA, ARF, Chemo, Hep., AIDS, mental health diagnosis, sleep apnea, morbid obesity)? @ -Obese, diabetes mellitus, hyperlipidemia,Thyroid disorder Was patient admitted / discharged? Hospital course, mention meds given and route, prescriptions, significant lab abnormalities, going to OR and other pertinent info. @ -Admitted. 68-year-old female presenting to the ER for evaluation of weakness. Upon arrival vital signs stable. Patient had no signs of acute distress nontoxic-appearing. Cardiac workup initiated with undetectable troponin. D-dimer -0.45. Chest x-ray negative. Urinalysis and viral swabs also negative. Heart score 4. Given patient's comorbidities admission was considered and accepted by Ashley SOLER for cardiac rule out. Serial troponins pending. Patient provided with baby aspirin and maintenance fluid. Cardiology on consult. Patient agreeable and admitted in stable condition for further evaluation and treatment.Case discussed with ED attending, Dr. Jennings. Undiagnosed new problem with uncertain prognosis? @ -No Drug Therapy requiring intensive monitoring for toxicity (Heparin, Nitro, Insulin, Cardizem)? @ -No Were any procedures done? @ -No Diagnosis/symptom? @ -Chest pain Acute, or Chronic, or Acute on Chronic? @ -Acute Uncomplicated (without systemic symptoms) or Complicated (systemic symptoms)? @ -Complicated Side effects of treatment? @ -No Exacerbation, Progression, or Severe Exacerbation? @ -No Poses a threat to life or bodily function? How? (Chest pain, USA, LA, pneumonia, PE, COPD, DKA, ARF, appy, cholecystitis, CVA, Diverticulitis, Homicidal, Suicidal, threat to staff... and all critical care pts) @ -Possibly, cannot rule out ACS. - Lab Data Result diagrams: 07/28/24 14:45 07/28/24 14:45 Lab Results 07/28/24 07/28/24 07/28/24 Range/Units 14:16 14:45 14:45 WBC 7.68 (4.50-10.00) 10*3/uL RBC 4.27 (4.10-5.20) 10*6/uL Hgb 11.2 L (12.0-15.0) g/dL Hct 34.9 L (37.2-46.3) % MCV 81.7 (80.0-97.0) fL MCH 26.2 L (27.0-32.0) pg MCHC 32.1 (32.0-37.0) g/dL Plt Count 315 (140-440) 10*3/uL MPV 11.5 (9.5-12.2) fL Immature Gran % (Auto) 0.4 % Neutrophils % 60.1 % Lymphocytes % 30.1 % Monocytes % 7.0 % Eosinophils % 1.4 % Basophils % 1.0 % Immature Gran # 0.03 (0.00-0.04) 10*3/uL Neutrophils # 4.61 (1.80-7.70) 10*3/uL Lymphocytes # 2.31 (0.90-5.00) 10*3/uL Monocytes # 0.54 (0.20-1.00) 10*3/uL Eosinophils # 0.11 (0.04-0.35) 10*3/uL Basophils # 0.08 (0.00-0.10) 10*3/uL PT 10.7 (10.0-12.5) sec INR 1.0 (<1.2) APTT 22.4 (22.0-30.0) sec D-Dimer (<0.60) mg/L FEU Sodium (137-145) mmol/L Potassium (3.5-5.1) mmol/L Chloride (98-107) mmol/L Carbon Dioxide (22-30) mmol/L Anion Gap mmol/L BUN (7-17) mg/dL Creatinine (0.52-1.04) mg/dL Est GFR (CKD-EPI)AfAm (>60 ml/min/1.73 sqM) Est GFR (CKD-EPI)NonAf (>60 ml/min/1.73 sqM) Glucose (74-99) mg/dL Plasma Lactic Acid [place] (0.7-2.0) mmol/L Calcium (8.4-10.2) mg/dL Total Bilirubin (0.2-1.3) mg/dL AST (14-36) U/L ALT (4-34) U/L Alkaline Phosphatase (38-126) U/L Troponin I (0.000-0.034) ng/mL Total Protein (6.3-8.2) g/dL Albumin (3.5-5.0) g/dL Urine Color Colorless Urine Appearance Clear (Clear) Urine pH 5.5 (5.0-8.0) Ur Specific [place] 1.019 (1.001-1.035) Urine Protein Negative (Negative) Urine Glucose (UA) Negative (Negative) Urine Ketones Negative (Negative) Urine Blood Negative (Negative) Urine Nitrite Negative (Negative) Urine Bilirubin Negative (Negative) Urine Urobilinogen <2.0 (<2.0) mg/dL Ur Leukocyte Esterase Negative (Negative) Influenza Type A (PCR) (Not Detectd) Influenza Type B (PCR) (Not Detectd) RSV (PCR) (Not Detectd) SARS-CoV-2 (PCR) (Not Detectd) 07/28/24 07/28/24 07/28/24 Range/Units 14:45 14:45 14:45 WBC (4.50-10.00) 10*3/uL RBC (4.10-5.20) 10*6/uL Hgb (12.0-15.0) g/dL Hct (37.2-46.3) % MCV (80.0-97.0) fL MCH (27.0-32.0) pg MCHC (32.0-37.0) g/dL Plt Count (140-440) 10*3/uL MPV (9.5-12.2) fL Immature Gran % (Auto) % Neutrophils % % Lymphocytes % % Monocytes % % Eosinophils % % Basophils % % Immature Gran # (0.00-0.04) 10*3/uL Neutrophils # (1.80-7.70) 10*3/uL Lymphocytes # (0.90-5.00) 10*3/uL Monocytes # (0.20-1.00) 10*3/uL Eosinophils # (0.04-0.35) 10*3/uL Basophils # (0.00-0.10) 10*3/uL PT (10.0-12.5) sec INR (<1.2) APTT (22.0-30.0) sec D-Dimer (<0.60) mg/L FEU Sodium 142 (137-145) mmol/L Potassium 4.7 (3.5-5.1) mmol/L Chloride 109 H (98-107) mmol/L Carbon Dioxide 21 L (22-30) mmol/L Anion Gap 12 mmol/L BUN 25 H (7-17) mg/dL Creatinine 1.04 (0.52-1.04) mg/dL Est GFR (CKD-EPI)AfAm 65 (>60 ml/min/1.73 sqM) Est GFR (CKD-EPI)NonAf 56 (>60 ml/min/1.73 sqM) Glucose 85 (74-99) mg/dL Plasma Lactic Acid [place] 1.6 (0.7-2.0) mmol/L Calcium 9.7 (8.4-10.2) mg/dL Total Bilirubin 0.6 (0.2-1.3) mg/dL AST 26 (14-36) U/L ALT 22 (4-34) U/L Alkaline Phosphatase 59 (38-126) U/L Troponin I <0.012 (0.000-0.034) ng/mL Total Protein 6.6 (6.3-8.2) g/dL Albumin 4.0 (3.5-5.0) g/dL Urine Color Urine Appearance (Clear) Urine pH (5.0-8.0) Ur Specific [place] (1.001-1.035) Urine Protein (Negative) Urine Glucose (UA) (Negative) Urine Ketones (Negative) Urine Blood (Negative) Urine Nitrite (Negative) Urine Bilirubin (Negative) Urine Urobilinogen (<2.0) mg/dL Ur Leukocyte Esterase (Negative) Influenza Type A (PCR) (Not Detectd) Influenza Type B (PCR) (Not Detectd) RSV (PCR) (Not Detectd) SARS-CoV-2 (PCR) (Not Detectd) 07/28/24 07/28/24 Range/Units 14:45 14:45 WBC (4.50-10.00) 10*3/uL RBC (4.10-5.20) 10*6/uL Hgb (12.0-15.0) g/dL Hct (37.2-46.3) % MCV (80.0-97.0) fL MCH (27.0-32.0) pg MCHC (32.0-37.0) g/dL Plt Count (140-440) 10*3/uL MPV (9.5-12.2) fL Immature Gran % (Auto) % Neutrophils % % Lymphocytes % % Monocytes % % Eosinophils % % Basophils % % Immature Gran # (0.00-0.04) 10*3/uL Neutrophils # (1.80-7.70) 10*3/uL Lymphocytes # (0.90-5.00) 10*3/uL Monocytes # (0.20-1.00) 10*3/uL Eosinophils # (0.04-0.35) 10*3/uL Basophils # (0.00-0.10) 10*3/uL PT (10.0-12.5) sec INR (<1.2) APTT (22.0-30.0) sec D-Dimer 0.45 (<0.60) mg/L FEU Sodium (137-145) mmol/L Potassium (3.5-5.1) mmol/L Chloride (98-107) mmol/L Carbon Dioxide (22-30) mmol/L Anion Gap mmol/L BUN (7-17) mg/dL Creatinine (0.52-1.04) mg/dL Est GFR (CKD-EPI)AfAm (>60 ml/min/1.73 sqM) Est GFR (CKD-EPI)NonAf (>60 ml/min/1.73 sqM) Glucose (74-99) mg/dL Plasma Lactic Acid [place] (0.7-2.0) mmol/L Calcium (8.4-10.2) mg/dL Total Bilirubin (0.2-1.3) mg/dL AST (14-36) U/L ALT (4-34) U/L Alkaline Phosphatase (38-126) U/L Troponin I (0.000-0.034) ng/mL Total Protein (6.3-8.2) g/dL Albumin (3.5-5.0) g/dL Urine Color Urine Appearance (Clear) Urine pH (5.0-8.0) Ur Specific [place] (1.001-1.035) Urine Protein (Negative) Urine Glucose (UA) (Negative) Urine Ketones (Negative) Urine Blood (Negative) Urine Nitrite (Negative) Urine Bilirubin (Negative) Urine Urobilinogen (<2.0) mg/dL Ur Leukocyte Esterase (Negative) Influenza Type A (PCR) Not Detected (Not Detectd) Influenza Type B (PCR) Not Detected (Not Detectd) RSV (PCR) Not Detected (Not Detectd) SARS-CoV-2 (PCR) Not Detected (Not Detectd) - Radiology Data Radiology results: report reviewed, image reviewed Disposition Clinical Impression: Chest pain Disposition: ADMITTED IP TO THIS HOSP Condition: Stable Time of Disposition: 17:05
[2024-07-28 14:28] LABS: Appearance,Urine Clear (Clear); Bilirubin,Urine Negative (Negative); Blood,Urine Negative (Negative); Color,Urine Colorless; Glucose,Urine (UA) Negative (Negative); Ketones,Urine Negative (Negative); Leukocyte Esterase,Urine Negative (Negative); Nitrite,Urine Negative (Negative); PH, Urine 5.5 (5.0-8.0); Protein,Urine Negative (Negative); Specific Gravity,Urine 1.019 (1.001-1.035); Urobilinogen,Urine <2.0 mg/dL (<2.0)
[2024-07-28 15:00] LABS: Basophils # (A) 0.08 10*3/uL (0.00-0.10); Eosinophils # (A) 0.11 10*3/uL (0.04-0.35); Eosinophils % (A) 1.4 %; HCT 34.9 % (37.2-46.3); HGB 11.2 g/dL (12.0-15.0); Lymphocytes # (A) 2.31 10*3/uL (0.90-5.00); Lymphocytes % (A) 30.1 %; MCH 26.2 pg (27.0-32.0); MCHC 32.1 g/dL (32.0-37.0); MCV 81.7 fL (80.0-97.0); Mean Platelet Volume 11.5 fL (9.5-12.2); Monocytes # (A) 0.54 10*3/uL (0.20-1.00); Neutrophils # (A) 4.61 10*3/uL (1.80-7.70); Neutrophils % (A) 60.1 %; Platelet Count 315 10*3/uL (140-440); RBC 4.27 10*6/uL (4.10-5.20); RDW 14.2 % (11.5-14.5); WBC 7.68 10*3/uL (4.50-10.00)
--- NOTE | 2024-07-28 15:00 | XR ---
EXAMINATION TYPE: XR chest 2V DATE OF EXAM: 07/28/2024 CLINICAL INDICATION: Female, 68 years old with history of weakness, TECHNIQUE: Frontal and lateral views of the chest are obtained. COMPARISON: Chest x-ray February 02, 2024 FINDINGS: Elevated and eventrated anterior aspect right hemidiaphragm. There is no focal air space op acity, pleural effusion, or pneumothorax seen. The cardiac silhouette size is stable and upper limit s of normal. The osseous structures are intact. IMPRESSION: No acute cardiopulmonary process. No significant change from most recent prior. [facility], , 07/28/2024 2:58 PM
[2024-07-28 15:14] LABS: Partial Thromboplastin Time 22.4 sec (22.0-30.0); Prothrombin Time 10.7 sec (10.0-12.5)
[2024-07-28 15:17] LABS: ALT 22 U/L (4-34); AST 26 U/L (14-36); African American GFR (CKD) 65 (>60 ml/min/1.73 sqM); Alkaline Phosphatase 59 U/L (38-126); Anion Gap 12 mmol/L; Blood Urea Nitrogen 25 mg/dL (7-17); Calcium 9.7 mg/dL (8.4-10.2); Carbon Dioxide 21 mmol/L (22-30); Chloride 109 mmol/L (98-107); Glucose 85 mg/dL (74-99); Non-African American GFR(CKD) 56 (>60 ml/min/1.73 sqM); Potassium 4.7 mmol/L (3.5-5.1); Sodium 142 mmol/L (137-145); Total Bilirubin 0.6 mg/dL (0.2-1.3); Total Protein 6.6 g/dL (6.3-8.2)
[2024-07-28 15:35] LABS: Influenza A Not Detected (Not Detectd); Influenza B Not Detected (Not Detectd); RSV Not Detected (Not Detectd)
[2024-07-28] MEDS: KETOROLAC 15 MG/ML 1 ML VIAL IVP STA (16:04)
[2024-07-28] MEDS ORDERED: ACETAMINOPHEN TAB 325 MG TAB PO PRN (17:06)
[2024-07-28] MEDS ORDERED: NALOXONE 0.4 MG/ML 1 ML VIAL IV PRN (17:06)
[2024-07-28] MEDS: SODIUM CHLORIDE 0.9% 1,000 ML IV STA (17:35)
[2024-07-28] MEDS: ASPIRIN 81 MG PO STA (17:37)
[2024-07-28 23:08] LABS: Glucose,Whole Blood 115 mg/dL (70-110)
[2024-07-28] MEDS ORDERED: FLUTICASONE NASAL 50MCG/SPRAY 16GM BTL EA NOSTRIL PRN (23:09)
[2024-07-28] MEDS: HYDROmorphone 1 MG/ML 1 ML SYRINGE IVP PRN (23:28)
[2024-07-29] MEDS: QUEtiapine 100 MG TAB PO SCH (00:02)
[2024-07-29] MEDS: busPIRone HCl 10 MG TAB PO SCH (00:02)
[2024-07-29] MEDS: ATORVASTATIN 80 MG TAB PO SCH (00:02)
[2024-07-29] MEDS: MIRTAZAPINE 15 MG TAB PO SCH (00:02)
[2024-07-29 06:13] LABS: Glucose,Whole Blood 101 mg/dL (70-110)
[2024-07-29] MEDS: LEVOTHYROXINE 125 MCG TAB PO SCH (06:16)
[2024-07-29] MEDS: ALBUTEROL NEBULIZED 2.5 MG/3 ML INHALATION PRN (09:04)
[2024-07-29] MEDS ORDERED: DOCUSATE 100 MG CAP PO PRN (09:46)
[2024-07-29] MEDS ORDERED: SENNOSIDES 8.6 MG TAB PO PRN (09:46)
[2024-07-29 10:35] LABS: NT-Pro-B-Type Natriuretic Pept 251 pg/mL
[2024-07-29] MEDS: SPIRONOLACTONE 25 MG TAB PO SCH (10:43)
[2024-07-29] MEDS: FERROUS SULFATE 325 MG TAB PO SCH (10:43)
[2024-07-29] MEDS: FUROSEMIDE 40 MG TAB PO SCH (10:43)
[2024-07-29] MEDS: ASPIRIN 81 MG PO SCH (10:44)
[2024-07-29] MEDS: metFORMIN 500 MG TAB PO SCH (10:44)
[2024-07-29] MEDS: CHOLECALCIFEROL 125 MCG (5000 IU) TABLET PO SCH (10:44)
--- NOTE | 2024-07-29 11:10 | P.CRDCN ---
History of Present Illness History of present illness: HISTORY OF PRESENT ILLNESS: This is a 68-year-old female with a past medical history significant for normal coronary arteries, hypertension, hyperlipidemia, diabetes, morbid obesity and o bstructive sleep apnea with CPAP use. Patient follows in the office with Dr. Reyes. We have been asked to see the patient in consultation for chest pain. Patient examined at the bedside. Patient is sitting on the side of the bed. Patient reports she presented to the hospital with a chief complaint of shortness of breath. Patient states that she just had a breathing treatment and is feeling very anxious. She feels like she is having a panic attack. Patient denies having any chest pain or pressure. DIAGNOSTICS: - EKG reveals sinus mechanism with no signs of acute ischemia. - Chest xray negative for acute process.. - Laboratory data: WBC 7.68. Hemoglobin 11.2. Platelet count 315. D-dimer 0.45. Sodium 142. Potassium 4.7. BUN 25. Creatinine 1.04. - Current home cardiac medications include aspirin 81 mg daily, Lipitor 80 mg at night. - Patient underwent dobutamine stress echo in January 2024 with no evidence of ischemia - Most recent echocardiogram obtained in January 2024 revealed ejection fraction 55 to 60%, no obvious regional wall motion abnormalities, mild pulmonary hypertension, trace to mild MR, mild TR - Cardiac catheterization history: January 2020 revealing normal coronary arteries with some calcification of the LAD proximally REVIEW OF SYSTEMS: At the time of my exam: CONSTITUTIONAL: Denies fever or chills. + anxiety HEENT: Denies blurred vision, vision changes, or eye pain. Denies hemoptysis CARDIOVASCULAR: Denies chest pain. Denies orthopnea. Denies PND. Denies palpitations RESPIRATORY: + shortness of breath. GASTROINTESTINAL: Denies abdominal pain. Denies nausea or vomiting. HEMATOLOGIC: Denies bleeding disorders. GENITOURINARY: Denies any blood in urine. SKIN: Denies pruitis. Denies rash. PHYSICAL EXAM: VITAL SIGNS: Reviewed. GENERAL: Well-developed in no acute distress. HEENT: Head is normocephalic. Pupils are equal, round. Sclerae anicteric. Mucous membranes of the mouth are moist. Neck supple. No JVD or thyromegaly LUNGS: Respirations even and unlabored. Lungs essentially clear to auscultation bilaterally, diminished. HEART: Regular rate and rhythm. S1 and S2 heard. ABDOMEN: Soft. Nondistended. Nontender. EXTREMITIES: Normal range of motion. No clubbing or cyanosis. Peripheral pulses intact. No lower extremity edema NEUROLOGIC: Awake and alert. Oriented x 3. ASSESSMENT: Chest pain, ruled out, patient denies chest pain or pressure Shortness of breath Mild acute heart failure with preserved EF, 55 to 60% Anxiety with stated panic attack Normal coronary arteries, per cath 01/2020 Hypertension Hyperlipidemia Diabetes Obstructive sleep apnea Morbid obesity: BMI 51.2 PLAN: An acute coronary event has been ruled out Obtain 2D echo to assess cardiac structure and function Check TSH, hemoglobin A1c, lipid panel, and proBNP Add Aldactone 12.5 mg daily Add Lasix 40 mg daily Continue aspirin and Lipitor No indication for stress testing or cardiac catheterization at this time Treatment of anxiety per primary medicine Recommend structured weight loss Further recommendations pending patient course Nurse practitioner note has been reviewed by physician. Signing provider agrees with the documented findings, assessment, and plan of care documented by DIRECTOR RADIO as a scribe. 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 Past Anesthesia/Blood Transfusion Reactions: Family History of Problems w/ Anesthesia, Motion Sickness Additional Past Anesthesia/Blood Transfusion Reaction / Comment(s): clauster phobia. pt's sister had diff breathing from anesthesia Past Psychological History: Anxiety, Depression, Panic Disorder Additional Psychological History / Comment(s): borderline personality disorder Smoking Status: Never smoker Past Alcohol Use History: None Reported Past Drug Use History: None Reported - Past Family History Son(s) Family Medical History: No Reported History Additional Family Medical History / Comment(s): She has 2 sons with no major medical problems. Patient does not have any daughters. Mother Family Medical History: Renal Disease Additional Family Medical History / Comment(s): Mother at age 80 from renal failure. Father Family Medical History: Coronary Artery Disease (CAD), CVA/TIA Additional Family Medical History / Comment(s): Father at age 67 with history of NM and stroke Brother(s) Family Medical History: Cancer, Coronary Artery Disease (CAD), Diabetes Mellitus, Hyperlipidemia, Hypertension Additional Family Medical History / Comment(s): She has total of 5 brothers and all had history of coronary artery disease and CABG, hypertension, hyperlipidemia, diabetes. Sister(s) Family Medical History: Cancer Additional Family Medical History / Comment(s): one sister of colon cancer, second sister had ovarian cancer Medications and Allergies Home Medications Medication Instructions Recorded Confirmed Type Aspirin 81 mg PO DAILY 30 Days #30 tab 03/11/24 07/28/24 Rx Atorvastatin [Lipitor] 80 mg PO HS 30 Days #30 tab 03/11/24 07/28/24 Rx Cholecalciferol [Vitamin D3 (125 125 mcg PO DAILY 30 Days #30 tab 03/11/24 07/28/24 Rx Mcg = 5000 Iu)] Ferrous Sulfate [Iron (65 MG 325 mg PO DAILY 30 Days #30 tab 03/11/24 07/28/24 Rx Elemental)] QUEtiapine [SEROquel] 100 mg PO HS 30 Days #30 tab 03/11/24 07/28/24 Rx busPIRone HCl [Buspar] 20 mg PO BID 30 Days #120 tab 03/11/24 07/28/24 Rx metFORMIN HCL ER [Glucophage XR] 1,000 mg PO BID 30 Days #120 tab 03/11/24 07/28/24 Rx Albuterol Sulfate [Albuterol 2 puff PO RT-Q6H PRN 07/28/24 07/28/24 History Sulfate Hfa] Fluticasone Nasal [place] [Flonase 2 spray EA NOSTRIL DAILY PRN 07/28/24 07/28/24 History Nasal [place]] Levothyroxine Sodium [Synthroid] 125 mcg PO DAILY 07/28/24 07/28/24 History Mirtazapine [Remeron] 7.5 mg PO HS 07/28/24 07/28/24 History Tirzepatide [Mounjaro] 2.5 mg SQ Q7D 90 Days #12 each 07/29/24 Rx Allergies Allergy/AdvReac Type Severity Reaction Status Date / Time sulfamethoxazole Allergy Unknown Rash/Hives, Verified 07/28/24 17:00 [From Bactrim] SOB trimethoprim [From Bactrim] Allergy Unknown Rash/Hives, Verified 07/28/24 17:00 SOB Physical Exam Vitals: Vital Signs Temp Pulse Pulse Resp BP BP Pulse Ox 07/29/24 02:00 98 F 59 L 17 112/64 97 07/28/24 22:45 98 F 60 17 117/68 96 07/28/24 20:57 97.9 F 56 L 20 113/62 97 07/28/24 18:00 98.8 F 63 16 130/73 98 07/28/24 17:41 79 16 116/67 97 07/28/24 13:46 97.9 F 74 20 122/65 96 Intake and Output 07/28/24 07/29/24 07/29/24 22:59 06:59 14:59 Other: # Voids 0 0 Weight 118.841 kg Results 07/28/24 14:45 07/28/24 14:45 Cardiac Enzymes 07/28/24 07/28/24 07/28/24 Range/Units 14:45 14:45 17:37 AST 26 (14-36) U/L Troponin I <0.012 <0.012 (0.000-0.034) ng/mL Coagulation 07/28/24 Range/Units 14:45 PT 10.7 (10.0-12.5) sec APTT 22.4 (22.0-30.0) sec CBC 07/28/24 Range/Units 14:45 WBC 7.68 (4.50-10.00) 10*3/uL RBC 4.27 (4.10-5.20) 10*6/uL Hgb 11.2 L (12.0-15.0) g/dL Hct 34.9 L (37.2-46.3) % Plt Count 315 (140-440) 10*3/uL Comprehensive Metabolic Panel 07/28/24 Range/Units 14:45 Sodium 142 (137-145) mmol/L Potassium 4.7 (3.5-5.1) mmol/L Chloride 109 H (98-107) mmol/L Carbon Dioxide 21 L (22-30) mmol/L BUN 25 H (7-17) mg/dL Creatinine 1.04 (0.52-1.04) mg/dL Glucose 85 (74-99) mg/dL Calcium 9.7 (8.4-10.2) mg/dL AST 26 (14-36) U/L ALT 22 (4-34) U/L Alkaline Phosphatase 59 (38-126) U/L Total Protein 6.6 (6.3-8.2) g/dL Albumin 4.0 (3.5-5.0) g/dL Current Medications Generic Name Dose Route Start Last Admin Trade Name Freq PRN Reason Stop Dose Admin Acetaminophen 650 mg 07/28/24 17:06 Acetaminophen Tab 325 Mg Tab PO Q6HR PRN Mild Pain or Fever > 100.5 Albuterol Sulfate 2.5 mg 07/28/24 23:09 Albuterol Nebulized 2.5 Mg/3 Ml INHALATION RT-Q6H PRN Shortness Of Breath Aspirin 81 mg 07/29/24 09:00 Aspirin 81 Mg PO DAILY RIKY Atorvastatin Calcium 80 mg 07/28/24 23:15 07/29/24 00:02 Atorvastatin 80 Mg Tab PO 80 mg HS RIKY Administration Buspirone HCl 20 mg 07/28/24 23:15 07/29/24 00:02 Buspirone Hcl 10 Mg Tab PO 20 mg BID RIKY Administration Cholecalciferol 125 mcg 07/29/24 09:00 Cholecalciferol 125 Mcg (5000 Iu) Tablet PO DAILY RIKY Ferrous Sulfate 325 mg 07/29/24 09:00 Ferrous Sulfate 325 Mg Tab PO DAILY RIKY Fluticasone Propionate 2 spray 07/28/24 23:09 Fluticasone Nasal 50mcg/[place] 16gm Btl EA NOSTRIL DAILY PRN Allergy Symptoms Hydromorphone HCl 1 mg 07/28/24 22:50 07/29/24 06:15 Hydromorphone 1 Mg/Ml 1 Ml Syringe IVP 1 mg Q4HR PRN Administration Severe Pain (Scale 7 to 10) Sodium Chloride 1,000 mls @ 50 mls/hr 07/28/24 17:07 07/28/24 17:35 Saline 0.9% IV 07/29/24 13:06 50 mls/hr .Q20H STA Administration Levothyroxine Sodium 125 mcg 07/29/24 06:30 07/29/24 06:16 Levothyroxine 125 Mcg Tab PO 125 mcg 0630 RIKY Administration Metformin HCl 1,000 mg 07/29/24 09:00 Metformin 500 Mg Tab PO BID RIKY Mirtazapine 7.5 mg 07/28/24 23:15 07/29/24 00:02 Mirtazapine 15 Mg Tab PO 7.5 mg HS RIKY Administration Naloxone HCl 0.2 mg 07/28/24 17:06 Naloxone 0.4 Mg/Ml 1 Ml Vial IV Q2M PRN Opioid Reversal Quetiapine Fumarate 100 mg 07/28/24 23:15 07/29/24 00:02 Quetiapine 100 Mg Tab PO 100 mg HS RIKY Administration Intake and Output 07/28/24 07/29/24 07/29/24 22:59 06:59 14:59 Other: # Voids 0 0 Weight 118.841 kg 07/28/24 14:45 07/28/24 14:45
[2024-07-29] MEDS: ALPRAZolam 0.25 MG TAB PO PRN (11:12)
[2024-07-29 12:02] LABS: Glucose,Whole Blood 176 mg/dL (70-110)
[2024-07-29 12:05] VITALS: BMI 51.1
--- NOTE | 2024-07-29 14:59 | P.HPIM ---
History of Present Illness H&P Date: 07/29/24 Patient is a 68-year-old female with REBEKA, diabetes, GERD, hyperlipidemia, hypothyroidism, CAD status post heart cath, anxiety, depression, panic disorder here for evaluation of chest pain, shortness of breath and weakness. Reported as chest pressure/heaviness, radiating to the arms or back lasting a few minutes with associated SOB and weakness of her lower extremity intermittently for the past 3 weeks. She was at her appointment with [facility] and started complaining of shortness of breath and chest tightness 11/03. They sent her to our facility for evaluation. She admits that her weakness causes difficulty of ambulation. She also reported bilateral lower extremity weakness and numbness with associated headache on evaluation. On admission: Vitals: 97.9 Fahrenheit, pulse rate 74, RR 20, BP 122/65, O2 saturation 96% on room air Labs: WBC 7.68, hemoglobin 11.2, MCV 81.7, platelet count 215,000, sodium 142, potassium 4.7, bicarb 21, BUN 25, creatinine 1.04, glucose 85. Troponins negative. Liver enzyme test negative. Urinalysis unremarkable. Cepheid 4 Plex negative.. Imaging: Chest x-ray showed no acute cardiopulmonary process, notable right hemidiaphragm. EKG showed sinus rhythm with a rate of 71, normal axis, no ST-T changes, QTc 417 MS. ED documentation reviewed. IV fluids initiated in the ED Review of systems: Pertinent positives and negatives as discussed in HPI, a complete review of systems was performed and all other systems are negative. Social history: Tobacco: none Alcohol: none Recreational drugs: none Travel: none Physical examination: Vital signs reviewed General: non toxic, no distress, appears at stated age, obese, on room air Derm: no unusual rashes/lesions, warm Head: atraumatic, normocephalic, symmetric Eyes: EOMI, anicteric sclera, pupils equal round reactive to light ENT: Nose and ears atraumatic Neck: No cervical lymphadenopathy, trachea midline, supple Mouth: no lip lesion, mucus membranes moist Cardiovascular: S1S2 reg, no murmur Lungs: CTA bilateral, no rhonchi, no rales, no accessory muscle use Abdominal: soft, nondistended, nontender to palpation, no guarding Ext: muscle strength 5 out of 5 in all 4 extremities grossly, no gross muscle atrophy, no contractures, positive dorsalis pedis pulse bilateral, +1 bilateral lower ext edema Neuro: CN II-XI grossly intact, no gross focal neuro deficits Psych: Alert and oriented x 3, appropriate affect and mood Assessment/Plan: The patient is admitted with an anticipated greater than 2 midnight stay for evaluation of chest pain Active: #. Chest pain, r/o ACS -Chest x-ray showed no acute cardiopulmonary process, notable right hemidiaphragm. EKG showed sinus rhythm with a rate of 71, normal axis, no ST-T changes, QTc 417 MS. -Cardiac monitoring -Supplemental oxygen as needed -Heart healthy diet - Troponin negative on admission. Trend troponin -EKG as needed -Continue with aspirin 81 mg daily -Continue lipitor 80 mg daily -Cardiology consulted. Recommendations appreciated. Chronic Conditions: #. REBEKA #. Diabetes #. GERD #. Hyperlipidemia #. Hypothyroidism #. CAD status post heart cath #. Anxiety #. Depression #. Panic disorder -Continue with home buspirone 20 mg twice daily, Feosol 325 mg p.o. daily, levothyroxine 125 mcg p.o. daily, metformin 1000 mg p.o. twice daily, Remeron 7.5 mg p.o. daily and Seroquel 100 mg p.o. daily - Continue with CPAP for REBEKA DVT ppx: Lovenox 40 mg subcu daily CODE STATUS: Full Discussed with: Patient Anticipated discharge place: home Nora Shankar MD PGY-1 Internal Medicine Dictation was produced using [employer] dictation software. please excuse any grammatical, word or spelling errors. Attestation: I have seen and examined this patient with my resident, assessment and plan discussed with the resident, agree with assessment and plan as written above. Dr. 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 Past Anesthesia/Blood Transfusion Reactions: Family History of Problems w/ Anesthesia, Motion Sickness Additional Past Anesthesia/Blood Transfusion Reaction / Comment(s): clausterphobia. pt's sister had diff breathing from anesthesia Past Psychological History: Anxiety, Depression, Panic Disorder Additional Psychological History / Comment(s): borderline personality disorder Smoking Status: Never smoker Past Alcohol Use History: None Reported Past Drug Use History: None Reported - Past Family History Son(s) Family Medical History: No Reported History Additional Family Medical History / Comment(s): She has 2 sons with no major medical problems. Patient does not have any daughters. Mother Family Medical History: Renal Disease Additional Family Medical History / Comment(s): Mother at age 80 from renal failure. Father Family Medical History: Coronary Artery Disease (CAD), CVA/TIA Additional Family Medical History / Comment(s): Father at age 67 with history of AL and stroke Brother(s) Family Medical History: Cancer, Coronary Artery Disease (CAD), Diabetes Mellitus, Hyperlipidemia, Hypertension Additional Family Medical History / Comment(s): She has total of 5 brothers and all had history of coronary artery disease and CABG, hypertension, hyperlipid emia, diabetes. Sister(s) Family Medical History: Cancer Additional Family Medical History / Comment(s): one sister of colon cancer, second sister had ovarian cancer Medications and Allergies Home Medications Medication Instructions Recorded Confirmed Type Aspirin 81 mg PO DAILY 30 Days #30 tab 03/11/24 07/28/24 Rx Atorvastatin [Lipitor] 80 mg PO HS 30 Days #30 tab 03/11/24 07/28/24 Rx Cholecalciferol [Vitamin D3 (125 125 mcg PO DAILY 30 Days #30 tab 03/11/24 07/28/24 Rx Mcg = 5000 Iu)] Ferrous Sulfate [Iron (65 MG 325 mg PO DAILY 30 Days #30 tab 03/11/24 07/28/24 Rx Elemental)] QUEtiapine [SEROquel] 100 mg PO HS 30 Days #30 tab 03/11/24 07/28/24 Rx busPIRone HCl [Buspar] 20 mg PO BID 30 Days #120 tab 03/11/24 07/28/24 Rx metFORMIN HCL ER [Glucophage XR] 1,000 mg PO BID 30 Days #120 tab 03/11/24 07/28/24 Rx Albuterol Sulfate [Albuterol 2 puff PO RT-Q6H PRN 07/28/24 07/28/24 History Sulfate Hfa] Fluticasone Nasal [place] [Flonase 2 spray EA NOSTRIL DAILY PRN 07/28/24 07/28/24 History Nasal [place]] Levothyroxine Sodium [Synthroid] 125 mcg PO DAILY 07/28/24 07/28/24 History Mirtazapine [Remeron] 7.5 mg PO HS 07/28/24 07/28/24 History Tirzepatide [Mounjaro] 2.5 mg SQ Q7D 90 Days #12 each 07/29/24 Rx Allergies Allergy/AdvReac Type Severity Reaction Status Date / Time sulfamethoxazole Allergy Unknown Rash/Hives, Verified 07/28/24 17:00 [From Bactrim] SOB trimethoprim [From Bactrim] Allergy Unknown Rash/Hives, Verified 07/28/24 17:00 SOB Physical Exam Vitals: Vital Signs Temp Pulse Pulse Resp BP BP Pulse Ox 07/29/24 02:00 98 F 59 L 17 112/64 97 07/28/24 22:45 98 F 60 17 117/68 96 07/28/24 20:57 97.9 F 56 L 20 113/62 97 07/28/24 18:00 98.8 F 63 16 130/73 98 07/28/24 17:41 79 16 116/67 97 07/28/24 13:46 97.9 F 74 20 122/65 96 Intake and Output 07/28/24 07/29/24 07/29/24 22:59 06:59 14:59 Other: # Voids 0 0 Weight 118.841 kg Results CBC & Chem 7: 07/28/24 14:45 07/28/24 14:45 Labs: Abnormal Lab Results - Last 24 Hours (Table) 07/28/24 07/28/24 07/28/24 Range/Units 14:45 14:45 23:06 Hgb 11.2 L (12.0-15.0) g/dL Hct 34.9 L (37.2-46.3) % MCH 26.2 L (27.0-32.0) pg Chloride 109 H (98-107) mmol/L Carbon Dioxide 21 L (22-30) mmol/L BUN 25 H (7-17) mg/dL POC Glucose (mg/dL) 115 H (70-110) mg/dL Thrombosis Risk Factor Assmnt - Choose All That Apply Any of the Below Risk Factors Present?: No Other Risk Factors: No Each Risk Factor Represents 2 Points: Age 61-74 years Other congenital or acquired thrombophilia - If yes, enter type in comment: No Thrombosis Risk Factor Assessment Total Risk Factor Score: 2 Thrombosis Risk Factor Assessment Level: Very Low Risk
[2024-07-29 15:10] LABS: Chol/HDL Ratio 2.71 Ratio; LDL Cholesterol,Calculated 48.5 mg/dL (0.0-131.0)
--- NOTE | 2024-07-29 15:18 | P.DS ---
Providers Date of admission: 07/28/24 16:51 Attending physician: Nereyda Baker Consults: 07/28/24 17:06 Consult Physician Urgent Consulting Provider: [facility] Consult Reason/Comments: chest pain Do you want consulting provider notified?: Yes Primary care physician: Jacki Freeman Hospital Course: Hospital Course: Patient is a 68-year-old female with REBEKA, diabetes, GERD, hyperlipidemia, h ypothyroidism, CAD status post heart cath, anxiety, depression, panic disorder here for evaluation of chest pain, shortness of breath and weakness. Reported as chest pressure/heaviness, radiating to the arms or back lasting a few minutes with associated SOB and weakness of her lower extremity intermittently for the past 3 weeks. She was at her appointment with [facility] and started complaining of shortness of breath and chest tightness 11/03. They sent her to our facility for evaluation. She admits that her weakness causes difficulty of ambulation. She also reported bilateral lower extremity weakness and numbness with associated headache on evaluation. On admission: Vitals: 97.9 Fahrenheit, pulse rate 74, RR 20, BP 122/65, O2 saturation 96% on room air Labs: WBC 7.68, hemoglobin 11.2, MCV 81.7, platelet count 215,000, sodium 142, potassium 4.7, bicarb 21, BUN 25, creatinine 1.04, glucose 85. Troponins negative. Liver enzyme test negative. Urinalysis unremarkable. Cepheid 4 Plex negative.. Imaging: Chest x-ray showed no acute cardiopulmonary process, notable right hemidiaphragm. EKG showed sinus rhythm with a rate of 71, normal axis, no ST-T changes, QTc 417 MS. Patient was admitted for evaluation of chest pain to rule out ACS. Cardiac monitoring, supplemental oxygen, trending troponins, echocardiogram, aspirin and Lipitor were ordered. Cardiology consulted and ordered TSH, echocardiogram and lipid panel. Patient symptoms did not worsen throughout her stay. Lipid panel, TSH were within normal limits. Cardiology cleared her for discharge. Added A ldactone and furosemide to her home medications. Follow-up echocardiogram on outpatient basis. Follow-up with cardiology and PCP on outpatient basis. Final Diagnosis: #. Chest pain, ACS ruled out #. REBEKA #. Diabetes #. GERD #. Hyperlipidemia #. Hypothyroidism #. CAD status post heart cath #. Anxiety #. Depression #. Panic disorder Physical examination: Vital signs reviewed General: non toxic, no distress Derm: no unusual rashes/lesions, warm Head: atraumatic, normocephalic, symmetric Eyes: EOMI, anicteric sclera, pupils equal round reactive to light ENT: Nose and ears atraumatic Neck: No cervical lymphadenopathy, trachea midline, supple Mouth: no lip lesion, mucus membranes moist Cardiovascular: S1S2 reg, no murmur Lungs: CTA bilateral, no rhonchi, no rales, no accessory muscle use Abdominal: soft, nondistended, nontender to palpation, no guarding Ext: muscle strength 5 out of 5 in all 4 extremities grossly, no gross muscle atrophy, no contractures, positive dorsalis pedis pulse bilateral, +1 bilateral lower ext edema Neuro: CN II-XI grossly intact, no gross focal neuro deficits Psych: Alert, oriented, appropriate affect and mood Attestation: I have seen and examined this patient with my resident, assessment and plan discussed with the resident, agree with assessment and plan as written above. Dr. Avilez Patient Condition at Discharge: Stable Plan - Discharge Summary Discharge Rx Participant: No New Discharge Prescriptions: New Tirzepatide [Mounjaro] 2.5 mg SQ Q7D 90 Days #12 each Furosemide [Lasix] 40 mg PO DAILY #30 tab Spironolactone [Aldactone] 12.5 mg PO DAILY #30 tab Continue busPIRone HCl [Buspar] 20 mg PO BID 30 Days #120 tab Ferrous Sulfate [Iron (65 MG Elemental)] 325 mg PO DAILY 30 Days #30 tab QUEtiapine [SEROquel] 100 mg PO HS 30 Days #30 tab Cholecalciferol [Vitamin D3 (125 Mcg = 5000 Iu)] 125 mcg PO DAILY 30 Days #30 tab Fluticasone Nasal [place] [Flonase Nasal [place]] 2 spray EA NOSTRIL DAILY PRN PRN Reason: Allergy Symptoms Albuterol Sulfate [Albuterol Sulfate Hfa] 2 puff PO RT-Q6H PRN PRN Reason: Shortness Of Breath Aspirin 81 mg PO DAILY 30 Days #30 tab metFORMIN HCL ER [Glucophage XR] 1,000 mg PO BID 30 Days #120 tab Atorvastatin [Lipitor] 80 mg PO HS 30 Days #30 tab Mirtazapine [Remeron] 7.5 mg PO HS Levothyroxine Sodium [Synthroid] 125 mcg PO DAILY Discharge Medication List Aspirin 81 mg PO DAILY 30 Days #30 tab 03/11/24 [Rx] Atorvastatin [Lipitor] 80 mg PO HS 30 Days #30 tab 03/11/24 [Rx] Cholecalciferol [Vitamin D3 (125 Mcg = 5000 Iu)] 125 mcg PO DAILY 30 Days #30 tab 03/11/24 [Rx] Ferrous Sulfate [Iron (65 MG Elemental)] 325 mg PO DAILY 30 Days #30 tab 03/11/24 [Rx] QUEtiapine [SEROquel] 100 mg PO HS 30 Days #30 tab 03/11/24 [Rx] busPIRone HCl [Buspar] 20 mg PO BID 30 Days #120 tab 03/11/24 [Rx] metFORMIN HCL ER [Glucophage XR] 1,000 mg PO BID 30 Days #120 tab 03/11/24 [Rx] Albuterol Sulfate [Albuterol Sulfate Hfa] 2 puff PO RT-Q6H PRN 07/28/24 [History] Fluticasone Nasal [place] [Flonase Nasal [place]] 2 spray EA NOSTRIL DAILY PRN 07/28/24 [History] Levothyroxine Sodium [Synthroid] 125 mcg PO DAILY 07/28/24 [History] Mirtazapine [Remeron] 7.5 mg PO HS 07/28/24 [History] Furosemide [Lasix] 40 mg PO DAILY #30 tab 07/29/24 [Rx] Spironolactone [Aldactone] 12.5 mg PO DAILY #30 tab 07/29/24 [Rx] Tirzepatide [Mounjaro] 2.5 mg SQ Q7D 90 Days #12 each 07/29/24 [Rx] Follow up Appointment(s)/Referral(s): Jacki Freeman DO [Primary Care Provider] - 1-2 days López Gillespie MD [Medical Doctor] - 1 Week Discharge Disposition: HOME SELF-CARE
--- NOTE | 2024-07-29 16:48 | CA ---
Transthoracic Echo Report Name: Belinda Welch Age: 68 Gender: F : 1955 Exam Date: 07/29/2024 09:55 Exam Location: [facility] Ht (in): 60 Wt (lb): 262 Ordering Physician: Joanna Snell Attending/Referring Phys: [id number], Channing [employer] Tech Lakeisha Key, ROSA Procedure CPT: Indications: sob, chf Cardiac Hx: Technical Quality: Fair Contrast 1: Total Dose (mL): Contrast 2: Total Dose (mL): MEASUREMENTS (Male / Female) Normal Values 2D ECHO LV Diastolic Diameter PLAX 4.8 cm 4.2 - 5.9 / 3.9 - 5.3 cm LV Systolic Diameter PLAX 2.7 cm IVS Diastolic Thickness 1.2 cm 0.6 - 1.0 / 0.6 - 0.9 cm LVPW Diastolic Thickness 1.2 cm 0.6 - 1.0 / 0.6 - 0.9 cm LV Relative Wall Thickness 0.5 RV Internal Dim ED PLAX 1.6 cm LVOT Diameter 1.9 cm LA Systolic Diameter LX 4.2 cm 3.0 - 4.0 / 2.7 - 3.8 cm LV Diastolic Volume MOD BP 62.8 cm??? 67 - 155 / 56 - 104 cm??? LV Systolic Volume MOD BP 20.0 cm??? 22 - 58 / 19 - 49 cm??? LV Ejection Fraction MOD BP 68.2 % >= 55 % LV Cardiac Index MOD BP 1143.3 cm???/min???m??? LV Diastolic Volume MOD 4C 71.5 cm??? LV Systolic Volume MOD 4C 19.9 cm??? LV Ejection Fraction MOD 4C 72.2 % LV Cardiac Index MOD 4C 1375.6 cm???/min???m??? LV Diastolic Length 4C 7.2 cm LV Systolic Length 4C 5.8 cm LV Diastolic Volume MOD 2C 55.8 cm??? LV Systolic Volume MOD 2C 20.1 cm??? LV Ejection Fraction MOD 2C 64.0 % LV Cardiac Index MOD 2C 953.8 cm???/min???m??? LV Diastolic Length 2C 7.1 cm LV Systolic Length 2C 6.0 cm M-MODE Aortic Root Diameter MM 3.0 cm LA Systolic Diameter MM 4.3 cm LA Ao Ratio MM 1.4 AV Cusp Separation MM 2.1 cm DOPPLER AV Peak Velocity 155.1 cm/s AV Peak Gradient 9.6 mmHg AV Mean Velocity 111.0 cm/s AV Mean Gradient 5.3 mmHg AV Velocity Time Integral 39.4 cm LVOT Peak Velocity 130.1 cm/s LVOT Peak Gradient 6.8 mmHg LVOT Velocity Time Integral 35.2 cm LVOT Stroke Volume 102.6 cm??? LVOT Stroke Volume Index 49.0 ml/m??? LVOT Cardiac Index 2738.5 cm???/min???m??? AV Area Cont Eq vti 2.6 cm??? AV Area Cont Eq pk 2.4 cm??? Mitral E Point Velocity 84.2 cm/s Mitral A Point Velocity 68.6 cm/s Mitral E to A Ratio 1.2 MV Deceleration Time 255.7 ms MV E' Velocity 7.2 cm/s Mitral E to MV E' Ratio 11.7 TR Peak Velocity 255.5 cm/s TR Peak Gradient 26.1 mmHg Right Atrial Pressure 5.0 mmHg Pulmonary Artery Systolic Pressu 31.1 mmHg Right Ventricular Systolic Press 31.1 mmHg FINDINGS Left Ventricle Left ventricular ejection fraction is estimated at 55-60%. Mildly increased septal wall thickness. Mildly increased posterior wall thickness. Normal left ventricular systolic function with no obvious regional wall motion abnormalities. Left ventricular cavity size normal. Right Ventricle Right ventricular systolic pressure within normal limits. Right Atrium Normal right atrial size. Left Atrium Mildly increased left atrial diameter. Mitral Valve Structurally normal mitral valve. Ucoe-[id number]-trzliulw mitral regurgitation. No mitral stenosis. Aortic Valve Trileaflet aortic valve. No aortic valve stenosis or regurgitation. Tricuspid Valve Structurally normal tricuspid valve. Mild tricuspid regurgitation. No tricuspid stenosis. Pulmonic Valve Structurally normal pulmonic valve. Trace pulmonic regurgitation. No pulmonic stenosis. Pericardium No pericardial or pleural effusion. Echo free space anterior to the right ventricle likely represents a fat pad. Aorta Normal size aortic root and proximal ascending aorta. CONCLUSIONS Echo LVEF 55 to 60% No obvious regional wall motion abnormality No significant diastolic dysfunction Mild concentric LVH Mild mitral regurgitation, mild tricuspid regurgitation Normal RV size and systolic function with RVSP of 32 mmHg Previewed by: Dr López Gillespie (Electronically Signed) Final Date: 29 July 2024 16:47
[2024-07-29 16:59] LABS: Glucose,Whole Blood 113 mg/dL (70-110)
[2024-07-29 20:13] VITALS: BP 133/78; RESP 16; TEMP 98.1
[2024-07-29 20:16] VITALS: PULSE 68
[2024-07-29 20:57] LABS: Glucose,Whole Blood 121 mg/dL (70-110)
[2024-07-30] MEDS ORDERED: ENOXAPARIN 40 MG/0.4 ML SYRINGE SQ SCH (09:00)
== END 2024-07-29 21:50 | disposition home or self-care (01) ==
LOC: EC 13:44 → 1SOBS 16:51
PROVIDERS: ADMIT Hospitalist; ATTEND Hospitalist
DX: R07.89 Other chest pain (principal); I11.0 Hypertensive heart disease with heart failure; I50.31 Acute diastolic (congestive) heart failure; I25.10 Atherosclerotic heart disease of native coronary artery without angina pectoris; I27.20 Pulmonary hypertension, unspecified; I08.1 Rheumatic disorders of both mitral and tricuspid valves; G47.33 Obstructive sleep apnea (adult) (pediatric); E78.5 Hyperlipidemia, unspecified; E11.9 Type 2 diabetes mellitus without complications; E03.9 Hypothyroidism, unspecified; K21.9 Gastro-esophageal reflux disease without esophagitis; F32.A Depression, unspecified; F41.9 Anxiety disorder, unspecified; F41.0 Panic disorder [episodic paroxysmal anxiety]; R51.9 Headache, unspecified; R20.0 Anesthesia of skin; E66.01 Morbid (severe) obesity due to excess calories; Z68.43 Body mass index [BMI] 50.0-59.9, adult; Z79.890 Hormone replacement therapy; Z79.82 Long term (current) use of aspirin; Z79.84 Long term (current) use of oral hypoglycemic drugs; Z79.899 Other long term (current) drug therapy; Z88.1 Allergy status to other antibiotic agents; Z88.2 Allergy status to sulfonamides; Z11.52 Encounter for screening for COVID-19; Z11.59 Encounter for screening for other viral diseases
CPT/HCPCS: 96375; 96376; 96374; 99285; 36415; 94660 ×2; 94640 ×2; 94760; 93005 ×2; 93306; 85379; 83880; 80061; 80053; 84443; 83605; 84484; 85025; 85610; 85730; 81003; 83036; 87636; 71046; G0378 ×2; J1171 ×2; J1885

== ENCOUNTER 2024-08-10 14:45 | Emergency (ER) | payer MEDICARE, OTHER ==
--- NOTE | 2024-08-10 16:12 | ED ---
General Adult HPI - General Source: EMS Mode of arrival: EMS Limitations: no limitations <Grayson Beverly - Last Filed: 08/10/24 20:29> - General Source: EMS, RN notes reviewed, old records reviewed Mode of arrival: EMS Limitations: no limitations <Go Jean Baptiste - Last Filed: 08/13/24 23:47> - General Chief complaint: Psychiatric Symptoms Stated complaint: Mental Health Time Seen by Provider: 08/10/24 14:47 - History of Present Illness Initial comments: Dictation was produced using [employer] dictation software. please excuse any grammatical, word or spelling errors. Chief Complaint: 68-year-old female with headache and total body numbness History of Present Illness: Patient 68-year-old female brought in by EMS from doctor's office. Patient supposedly has extensive mental health history. States that for the last couple days she has been having a mild headache. Patient also states that her whole body is numb. Denies any suicidal homicidal ideation. Denies any extremity weakness. Denies any pain complaints besides her mild headache The ROS documented in this emergency department record has been reviewed and confirmed by me. Those systems with pertinent positive or negative responses have been documented in the HPI. All other systems are other negative and/or noncontributory. (Grayson Beverly) This is a 68-year-old female to ER for evaluation, patient was brought in for mental health evaluation (Go Jean Baptiste) - Related Data Home Medications Medication Instructions Recorded Confirmed Albuterol Sulfate [Albuterol 2 puff INHALATION RT-Q6H PRN 07/28/24 08/10/24 Sulfate Hfa] Fluticasone Nasal [place] [Flonase 2 spray EA NOSTRIL DAILY PRN 07/28/24 08/10/24 Nasal [place]] Levothyroxine Sodium [Synthroid] 125 mcg PO DAILY 07/28/24 08/10/24 Mirtazapine [Remeron] 7.5 mg PO HS 07/28/24 08/10/24 ALPRAZolam [Xanax] 0.25 mg PO DAILY 08/10/24 08/10/24 busPIRone HCl [Buspar] 10 mg PO BID 08/10/24 08/10/24 Previous Rx's Medication Instructions Recorded Aspirin 81 mg PO DAILY 30 Days #30 tab 03/11/24 Atorvastatin [Lipitor] 80 mg PO HS 30 Days #30 tab 03/11/24 Cholecalciferol [Vitamin D3 (125 125 mcg PO DAILY 30 Days #30 tab 03/11/24 Mcg = 5000 Iu)] Ferrous Sulfate [Iron (65 MG 325 mg PO DAILY 30 Days #30 tab 03/11/24 Elemental)] QUEtiapine [SEROquel] 100 mg PO HS 30 Days #30 tab 03/11/24 metFORMIN HCL ER [Glucophage XR] 1,000 mg PO BID 30 Days #120 tab 03/11/24 Allergies Allergy/AdvReac Type Severity Reaction Status Date / Time sulfamethoxazole Allergy Unknown Rash/Hives, Verified 08/10/24 15:38 [From Bactrim] SOB trimethoprim [From Bactrim] Allergy Unknown Rash/Hives, Verified 08/10/24 15:38 SOB Review of Systems ROS Other: All systems not noted in ROS Statement are negative. <Grayson Beverly - Last Filed: 08/10/24 20:29> ROS Other: All systems not noted in ROS Statement are negative. <Go Jean Baptiste - Last Filed: 08/13/24 23:47> ROS Statement: Those systems with pertinent positive or pertinent negative responses have been documented in the HPI. 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 Past Anesthesia/Blood Transfusion Reactions: Family History of Problems w/ Anesthesia, Motion Sickness Additional Past Anesthesia/Blood Transfusion Reaction / Comment(s): clausterphobia. pt's sister had diff breathing from anesthesia Past Psychological History: Anxiety, Depression, Panic Disorder Smoking Status: Never smoker Past Alcohol Use History: None Reported Past Drug Use History: None Reported - Past Family History Son(s) Family Medical History: No Reported History Additional Family Medical History / Comment(s): She has 2 sons with no major medical problems. Patient does not have any daughters. Mother Family Medical History: Renal Disease Additional Family Medical History / Comment(s): Mother at age 80 from renal failure. Father Family Medical History: Coronary Artery Disease (CAD), CVA/TIA Additional Family Medical History / Comment(s): Father at age 67 with histo ry of [place] and stroke Brother(s) Family Medical History: Cancer, Coronary Artery Disease (CAD), Diabetes Mellitus, Hyperlipidemia, Hypertension Additional Family Medical History / Comment(s): She has total of 5 brothers and all had history of coronary artery disease and CABG, hypertension, hyperlipidemia, diabetes. Sister(s) Family Medical History: Cancer Additional Family Medical History / Comment(s): one sister of colon cancer, second sister had ovarian cancer <Grayson Beverly - Last Filed: 08/10/24 20:29> General Exam Limitations: no limitations <Grayson Beverly - Last Filed: 08/10/24 20:29> General appearance: alert, in no apparent distress Head exam: Present: atraumatic, normocephalic, normal inspection Eye exam: Present: normal appearance, PERRL, EOMI. Absent: scleral icterus, conjunctival injection, periorbital swelling ENT exam: Present: normal exam, mucous membranes moist Neck exam: Present: normal inspection. Absent: tenderness, meningismus, lymphadenopathy Respiratory exam: Present: normal lung sounds bilaterally. Absent: respiratory distress, wheezes, rales, rhonchi, stridor Cardiovascular Exam: Present: regular rate, normal rhythm, normal heart sounds. Absent: systolic murmur, diastolic murmur, rubs, gallop, clicks GI/Abdominal exam: Present: soft, normal bowel sounds. Absent: distended, tenderness, guarding, rebound, rigid Extremities exam: Present: normal inspection, full ROM, normal capillary refill. Absent: tenderness, pedal edema, joint swelling, calf tenderness Back exam: Present: normal inspection Neurological exam: Present: alert, oriented X3, CN II-XII intact Psychiatric exam: Present: normal affect, normal mood Skin exam: Present: warm, dry, intact, normal color. Absent: rash <Go Jean Baptiste - Last Filed: 08/13/24 23:47> - General Exam Comments Initial Comments: PHYSICAL EXAM: General Impression: Alert and oriented x3, not in acute distress HEENT: Normocephalic atraumatic, extra-ocular movements intact, pupils equal and reactive to light bilaterally, mucous membranes moist. Cardiovascular: Heart regular rate and rhythm Chest: Able to complete full sentences, no retractions, no tachypnea Abdomen: abdomen soft, non-tender, non-distended, no organomegaly Musculoskeletal: Pulses present and equal in all extremities, no peripheral edema Motor: no focal deficits noted Neurological: CN II-XII grossly intact, no focal motor or sensory deficits noted Skin: Intact with no visualized rashes Psych: Normal affect and mood (Grayson Beverly) Course <Go Jean Baptiste - Last Filed: 08/13/24 23:47> Vital Signs 08/10/24 08/10/24 14:47 23:59 Temperature 98.3 F 98.4 F Pulse Rate 67 78 Respiratory 20 18 Rate Blood Pressure 133/65 128/80 O2 Sat by Pulse 96 100 Oximetry - Reevaluation(s) Reevaluation #1: Medical records reviewed (Go Jean Baptiste) Reevaluation #2: Medically cleared for psychiatric evaluation (Go Jean Baptiste) Medical Decision Making - Lab Data Result diagrams: 08/10/24 16:20 08/10/24 16:20 <Grayson Beverly - Last Filed: 08/10/24 20:29> - Lab Data Result diagrams: 08/10/24 16:20 08/10/24 16:20 <Go Jean Baptiste - Last Filed: 08/13/24 23:47> - Medical Decision Making Was pt. sent in by a medical professional or institution (, PA, [facility], urgent care, hospital, or fci...) When possible be specific @ -No Did you speak to anyone other than the patient for history (EMS, parent, family, police, friend...)? What history was obtained from this source @ -No Did you review nursing and triage notes (agree or disagree)? Why? @ -I reviewed and agree with nursing and triage notes Were old charts reviewed (outside hosp., previous admission, EMS record, old EKG, old radiological studies, urgent care reports/EKG's, fci records)? Report findings @ -No old charts were reviewed Differential Diagnosis (chest pain, altered mental status, abdominal pain women, abdominal pain men, vaginal bleeding, musculoskeletal, weakness, fever, dyspnea, syncope, headache, dizziness, GI bleed, back pain, seizure, CVA, palpatations, mental health)? @ -Differential Mental Health: Depression, anxiety, bipolar, psychosis, schizophrenia, borderline personality, situational depression, adjustment disorder, behavioral disorder, brain tumor, malingering, substance abuse, encephalopathy, medication reaction, dementia, hypothyroidism, degenerative neurologic disorder, lupus.... This is not meant to be all-inclusive list Differential Headache: Migraine, tension, cluster, carbon monoxide, central venous thrombosis, pension karma temporal arteritis, acute closure glaucoma, intercranial hemorrhage, mas toiditis, sinusitis, head injury, this is not meant to be an all-inclusive list. EKG interpreted by me (3pts min.). @ -None done X-rays interpreted by me (1pt min.). @ -None done CT interpreted by me (1pt min.). @ -CT brain shows no acute processes U/S interpreted by me (1pt. min.). @ -None done What testing was considered but not performed or refused? (CT, X-rays, U/S, labs)? Why? @ -None What meds were considered but not given or refused? Why? @ -None Was smoking cessation discussed for >3mins.? @ -No Were there social determinants of health that impacted care today? How? (Homelessness, low income, unemployed, alcoholism, drug addiction, transportation, low edu. Level, literacy, decrease access to med. care, detention, rehab)? @ -No Was there de-escalation of care discussed even if they declined (Discuss DNR or withdrawal of care, Hospice)? DNR status @ -No What co-morbidities impacted this encounter? (DM, HTN, Smoking, COPD, CAD, Cancer, CVA, ARF, Chemo, Hep., AIDS, mental health diagnosis, sleep apnea, morbid obesity)? @ -None Was patient admitted / discharged? Hospital course, mention meds given and route, prescriptions, significant lab abnormalities, going to OR and other pertinent info. @ -68-year-old female with history of mental health issues presents to the ER for total body numbness along with mild headache. No high risk features. Vital signs stable. Physical examination is benign. CT brain labs unremarkable. Patient improved after headache cocktail. Patient requesting EPS evaluation. Patient does not have any suicidal homicidal ideations or symptoms of psychosis. Patient care signed out to Dr. Brantley at 9:00 PM Did you discuss the management of the patient with other professionals (professionals i.e. , PA, [employer], lab, RT, psych nurse, social worker masters, security management specialist, teacher, operations officer afloat, child welfare caseworker)? Give summary @ -No Was critical care preformed (if so, how long)? @ -No Undiagnosed new problem with uncertain prognosis? @ -No Drug Therapy requiring intensive monitoring for toxicity (Heparin, Nitro, Insulin, Cardizem)? @ -No Were any procedures done? @ -No Diagnosis/symptom? Acute, or Chronic, or Acute on Chronic? Uncomplicated (wit hout systemic symptoms) or Complicated (systemic symptoms)? @ -Default Side effects of treatment? @ -No Exacerbation, Progression, or Severe Exacerbation? @ -No Poses a threat to life or bodily function? How? (Chest pain, [place], [place], pneumonia, PE, COPD, DKA, ARF, appy, cholecystitis, CVA, Diverticulitis, Homicidal, Suicidal, threat to staff... and all critical care pts) @ -No (Grayson Beverly) 68 female will be admitted for psychiatric evaluation and treatment (Go Jean Baptiste) - Lab Data Lab Results 08/10/24 08/10/24 Range/Units 16:20 16:20 WBC 8.01 (4.50-10.00) 10*3/uL RBC 4.33 (4.10-5.20) 10*6/uL Hgb 11.4 L (12.0-15.0) g/dL Hct 35.2 L (37.2-46.3) % MCV 81.3 (80.0-97.0) fL MCH 26.3 L (27.0-32.0) pg MCHC 32.4 (32.0-37.0) g/dL Plt Count 308 (140-440) 10*3/uL MPV 11.8 (9.5-12.2) fL Immature Gran % (Auto) 0.2 % Neutrophils % 61.9 % Lymphocytes % 29.8 % Monocytes % 6.0 % Eosinophils % 1.4 % Basophils % 0.7 % Immature Gran # 0.02 (0.00-0.04) 10*3/uL Neutrophils # 4.95 (1.80-7.70) 10*3/uL Lymphocytes # 2.39 (0.90-5.00) 10*3/uL Monocytes # 0.48 (0.20-1.00) 10*3/uL Eosinophils # 0.11 (0.04-0.35) 10*3/uL Basophils # 0.06 (0.00-0.10) 10*3/uL Sodium 140 (137-145) mmol/L Potassium 4.1 (3.5-5.1) mmol/L Chloride 107 (98-107) mmol/L Carbon Dioxide 19 L (22-30) mmol/L Anion Gap 14 mmol/L BUN 20 H (7-17) mg/dL Creatinine 0.97 (0.52-1.04) mg/dL Est GFR (CKD-EPI)AfAm 71 (>60 ml/min/1.73 sqM) Est GFR (CKD-EPI)NonAf 61 (>60 ml/min/1.73 sqM) Glucose 91 (74-99) mg/dL Calcium 9.8 (8.4-10.2) mg/dL Creatine Kinase 40 (30-135) U/L Disposition <Grayson Beverly - Last Filed: 08/10/24 20:29> Is patient prescribed a controlled substance at d/c from ED?: No <Go Jean Baptiste - Last Filed: 08/13/24 23:47> Clinical Impression: Major depressive disorder without psychotic features, Major depressive disorder, recurrent severe without psychotic features, Bipolar disorder Disposition: TRANSFER TO PSYCH HOSP/UNIT Condition: Fair Referrals: Jacki Freeman DO [Primary Care Provider] - 1-2 days
[2024-08-10] MEDS: SODIUM CHLORIDE 0.9% 1,000 ML IV STA (16:17)
[2024-08-10] MEDS: KETOROLAC 15 MG/ML 1 ML VIAL IVP STA (16:18)
[2024-08-10] MEDS: ONDANSETRON 4 MG/2 ML VIAL IVP STA (16:19)
[2024-08-10] MEDS: diphenhydrAMINE 50 MG/ML 1 ML VIAL IVP STA (16:21)
[2024-08-10 16:33] LABS: Basophils # (A) 0.06 10*3/uL (0.00-0.10); Basophils % (A) 0.7 %; Eosinophils # (A) 0.11 10*3/uL (0.04-0.35); Eosinophils % (A) 1.4 %; HCT 35.2 % (37.2-46.3); HGB 11.4 g/dL (12.0-15.0); Lymphocytes # (A) 2.39 10*3/uL (0.90-5.00); Lymphocytes % (A) 29.8 %; MCH 26.3 pg (27.0-32.0); MCHC 32.4 g/dL (32.0-37.0); MCV 81.3 fL (80.0-97.0); Mean Platelet Volume 11.8 fL (9.5-12.2); Monocytes # (A) 0.48 10*3/uL (0.20-1.00); Neutrophils # (A) 4.95 10*3/uL (1.80-7.70); Neutrophils % (A) 61.9 %; Platelet Count 308 10*3/uL (140-440); RBC 4.33 10*6/uL (4.10-5.20); RDW 13.8 % (11.5-14.5); WBC 8.01 10*3/uL (4.50-10.00)
[2024-08-10 16:47] LABS: African American GFR (CKD) 71 (>60 ml/min/1.73 sqM); Anion Gap 14 mmol/L; Blood Urea Nitrogen 20 mg/dL (7-17); Calcium 9.8 mg/dL (8.4-10.2); Carbon Dioxide 19 mmol/L (22-30); Chloride 107 mmol/L (98-107); Creatine Kinase 40 U/L (30-135); Glucose 91 mg/dL (74-99); Non-African American GFR(CKD) 61 (>60 ml/min/1.73 sqM); Potassium 4.1 mmol/L (3.5-5.1); Sodium 140 mmol/L (137-145)
--- NOTE | 2024-08-10 17:25 | CT ---
EXAMINATION TYPE: CT brain wo con DATE OF EXAM: 08/10/2024 5:11 PM COMPARISON: 09/18/2022 CLINICAL INDICATION: Female, 68 years old with history of headaches, AMS, headache and dizziness TECHNIQUE: CT of the brain is performed utilizing 3 mm thick sections through the posterior fossa and 3 mm thick sections through the remaining calvarium. Study is performed within 24 hours of arrival to the hospital. Contrast used: mL of , (none if empty) CT DLP: 1156.4 mGycm, Automated exposure control for dose reduction was used. FINDINGS: No abnormal hyperdensity is present to suggest an acute intracranial hemorrhage. No mass lesion is evident. No acute infarcts are evident. Ventricles and sulci are appropriate for the patient age. Paranasal sinuses and mastoid air cells within the [id number] are clear. IMPRESSION: 1. No acute intracranial process. Follow up MRI can be performed as clinically indicated. [facility], , 08/10/2024 5:22 PM
[2024-08-11 00:01] VITALS: BP 128/80; PULSE 78; RESP 18; TEMP 98.4
== END 2024-08-11 00:03 ==
LOC: EC 14:45
DX: F32.9 Major depressive disorder, single episode, unspecified (principal); Z88.2 Allergy status to sulfonamides
CPT/HCPCS: 82075; 36415; 80048; 82550; 85025; 70450; 99285; 96374; 96375 ×2; 96361; J1200; J2405; J1885